=== PATIENT | male | born 1945 | race American Indian/Alaskan Native ===

== ENCOUNTER 2017-11-11 13:37 | Inpatient (IN) | payer MEDICARE ==
[2017-11-11] MEDS ORDERED: Sodium Chloride 0.9% 1,000 ML IV ONE (13:58)
[2017-11-11] MEDS ORDERED: Calcium Gluconate 4.65 MEQ in Dextrose 5% In Water 100 ML IV STA (14:00)
[2017-11-11] MEDS ORDERED: Albuterol-Ipratrop 3 mg / 0.5 (3 ml) UD INH STA (14:00)
[2017-11-11] MEDS ORDERED: Piperacillin/Tazobact 3.375 gm 100 ML IV STA (14:05)
--- NOTE | 2017-11-11 14:20 | C.PDOC ---
History Of Present Illness 72 y/o male hx respiratory failure November 2016 presents to the ED brought by ambulance found unconscious on the floor for two days. There was no family presents. The patient denies known new injuries. Time Seen by Provider: 11/11/17 13:50 Chief Complaint (Nursing): Altered Mental Status History Per: EMS History/Exam Limitations: Other (unable to report due to medical condition ) Onset/Duration Of Symptoms: Days Current Symptoms Are (Timing): Still Present Additional History Per: EMS Past Medical History Reviewed: Historical Data, Nursing Documentation, Vital Signs Vital Signs: Last Vital Signs Temp 94.1 F L 11/11/17 23:21 Pulse 72 11/11/17 23:21 Resp 12 11/11/17 23:21 BP 100/51 L 11/11/17 23:21 Pulse Ox 100 11/11/17 23:21 - Medical History PMH: Asthma, CHF, COPD, HTN - [facility] Procedures ASSISTANCE WITH RESPIRATORY VENTILATION, <24 HRS, CPAP (11/24/16) INSERT INFUSION DEV IN R INT JUGULAR VEIN, PERC (11/24/16) INSERTION OF ENDOTRACHEAL AIRWAY INTO TRACHEA, VIA OPENING (11/24/16) RESPIRATORY VENTILATION, LESS THAN 24 CONSECUTIVE HOURS (11/24/16) Family History: States: No Known Family Hx - Social History Hx Alcohol Use: No Hx Substance Use: No - Immunization History Hx Tetanus Toxoid Vaccination: No Hx Influenza Vaccination: Yes (2015) Hx Pneumococcal Vaccination: No (NOT SURE) Review Of Systems Except As Marked, All Systems Reviewed And Found Negative. Respiratory: Negative for: Cough, Shortness of Breath Gastrointestinal: Negative for: Nausea, Vomiting Musculoskeletal: Positive for: Other (found unconscious ) Neurological: Negative for: Change in Speech, Confusion, Dizziness Physical Exam - Physical Exam Appears: Non-toxic, Other (thin black male and obtundent) Skin: Warm, Dry Head: Atraumatic, Normacephalic Eye(s): bilateral: Normal Inspection Oral Mucosa: Moist Neck: Supple Chest: Symmetrical Cardiovascular: Rhythm Regular Respiratory: Normal Breath Sounds, No Rales, No Rhonchi, No Wheezing Gastrointestinal/Abdominal: Soft, No Tenderness, No Guarding, No Rebound Back: Normal Inspection Extremity: Capillary Refill (2<sec. ), Other (questionable right hip deformity ) ED Course And Treatment - Laboratory Results Result Diagrams: 11/11/17 19:17 11/11/17 19:17 ECG: Interpreted By Me ECG Rhythm: Sinus Rhythm ECG Interpretation: Normal Rate From EC O2 Sat by Pulse Oximetry: 100 (RA) Pulse Ox Interpretation: Normal - Radiology CXR: Interpreted by Me CXR Interpretation: Yes: No Acute Disease - Other Rad post-intubation CXR X-Ray: Interpreted by Me (good ET tube, no pnx) Progress Note: TLC triple lumen catheter in the right groin first attempt , intubation with 6.5 ET tube using glide scope confirmed with x- ray. Spoke with Dr. Jose at 2:15pm, Dr. Rhonda Denton at 3:30pm, and Dr. Ricks and 4:30pm . Patient is hypothermic, hypocarbic, and intubated. Hip films are negative for fracture. Critical Care Time - Critical Care Note Total Time (in mins): 90 Documented critical care: time excludes all time spent performing seperately billable procedures. Medical Decision Making Medical Decision Making: hypothermia, probabably from laying on the floor @ home for ? 2 days Rewarming with BEAR hugger and warm fluids/air REsp hypercarbic failure h/o same intubated and PEEP and increased rate to decrease CO2 Change of mental status R hip deformity hip/Pelvis films pending when pt stable. IMPRESSION: Baseline study. No evidence of acute intracranial hemorrhage intracranial collection mass effect or midline shift. Complete opacification of the right frontal sinus. Left Disposition Doctor Will See Patient In The: Hospital Counseled Patient/Family Regarding: Studies Performed, Diagnosis - Disposition Disposition: HOSPITALIZED Disposition Time: 16:05 Condition: CRITICAL - Clinical Impression Clinical Impression: Acute hypercapnic respiratory failure, Hypothermia - Scribe Statement Daniela Zhou
[2017-11-11 14:22] LABS: BASO % 0.3 % (0.0-2.0); EOS % 0.1 % (0.0-4.0); LYMPH # 0.3 K/uL (1.0-4.3); LYMPH % 8.3 % (20.0-40.0); MEAN CELL VOLUME 93.2 fL (80.0-94.0); MEAN CORPUSCULAR HEMOGLOBIN 28.2 pg (27.0-31.0); MEAN CORPUSCULAR HGB CONC 30.2 g/dL (33.0-37.0); MEAN PLATELET VOLUME 8.1 fL (7.2-11.7); MONO # 0.2 K/uL (0.0-0.8); MONO % 4.4 % (0.0-10.0); NEUT # 3.1 K/uL (1.8-7.0); NEUT % 86.9 % (50.0-75.0); NRBC % 0.3 % (0.0-2.0); RBC 4.96 Mil/uL (4.40-5.90); RED CELL DISTRIBUTION WIDTH 17.5 % (11.5-14.5)
[2017-11-11 14:26] LABS: INR 1.8; PROTHROMBIN TIME 20.4 SECONDS (9.7-12.2)
[2017-11-11 14:32] LABS: ARTERIAL BLOOD GAS O2 SAT 100.4 % (95-98); ARTERIAL BLOOD GAS PCO2 > 150 mm/Hg (35-45); ARTERIAL BLOOD GAS PH 7.07 (7.35-7.45); ARTERIAL BLOOD GAS PO2 401 mm/Hg (80-100)
[2017-11-11] MEDS ORDERED: Propofol 10 mg/ml 1,000 MG/100 ML VIAL ONE (14:36)
[2017-11-11 14:43] LABS: PLATELET COUNT 136 K/uL (130-400); WHITE BLOOD COUNT 3.6 K/uL (4.8-10.8)
[2017-11-11] MEDS ORDERED: Vancomycin 1 gm/NS 200 ml 1 GM/200 ML BAG IVPB ONE (15:00)
[2017-11-11 15:07] LABS: BANDS 3 % (0-2); EOSINOPHIL 1 % (0-4); LYMPHOCYTE 6 % (20-40); MONOCYTE 5 % (0-10); NEUTROPHIL 85 % (50-75); TOTAL CELLS COUNTED 100
[2017-11-11 15:08] LABS: ANISOCYTOSIS SLIGHT; PLATELET ESTIMATE NORMAL (NORMAL)
[2017-11-11 15:09] LABS: LARGE PLATELETS PRESENT
[2017-11-11 15:10] LABS: POLYCHROMIC SLIGHT
[2017-11-11 15:11] LABS: TARGET CELLS SLIGHT
[2017-11-11] MEDS ORDERED: DOPamine 400mg/250ml D5W 400 MG/250 ML BAG IV ONE (15:34)
[2017-11-11] MEDS: DOPamine 400mg/250ml D5W 400 MG/250 ML BAG IV PRN (15:40)
[2017-11-11] MEDS ORDERED: DOPamine 400mg/250ml D5W 250 ML IV PRN (15:42)
--- NOTE | 2017-11-11 15:45 | CP.PCM.HP ---
Past Patient History - Past Medical History & Family History Past Medical History?: Yes - Past Social History Smoking Status: Unknown If Ever Smoked - CARDIAC Hx Congestive Heart Failure: Yes Hx Hypertension: Yes - PULMONARY Hx Asthma: Yes Hx Chronic Obstructive Pulmonary Disease (COPD): Yes - NEUROLOGICAL Hx Neurological Disorder: Yes Hx Dizziness: Yes - ENDOCRINE/METABOLIC Hx Diabetes Mellitus Type 2: Yes - MUSCULOSKELETAL/RHEUMATOLOGICAL Hx Falls: Yes - PSYCHIATRIC Hx Substance Use: No - SURGICAL HISTORY Hx Surgeries: No - ANESTHESIA Hx Anesthesia: No Meds Allergies/Adverse Reactions: Allergies Allergy/AdvReac Type Severity Reaction Status Date / Time No Known Allergies Allergy Verified 11/11/17 13:45 Results - Vital Signs Recent Vital Signs: Last Vital Signs Temp 84.0 F L 11/11/17 13:39 Pulse 41 L 11/11/17 15:37 Resp 16 11/11/17 15:37 BP 76/47 L 11/11/17 15:37 Pulse Ox 100 11/11/17 15:42 - Labs Result Diagrams: 11/11/17 14:13 Labs: Laboratory Results - last 24 hr 11/11/17 11/11/17 11/11/17 14:13 14:13 14:18 WBC 3.6 L D RBC 4.96 Hgb 14.0 D Hct 46.3 MCV 93.2 D MCH 28.2 MCHC 30.2 L RDW 17.5 H Plt Count 136 D MPV 8.1 Neut % (Auto) 86.9 H Lymph % (Auto) 8.3 L [place] % (Auto) 4.4 Eos % (Auto) 0.1 Baso % (Auto) 0.3 Neut # 3.1 Lymph # 0.3 L [place] # 0.2 Eos # 0.0 Baso # 0.0 Neutrophils % (Manual) 85 H Band Neutrophils % 3 H Lymphocytes % (Manual) 6 L Monocytes % (Manual) 5 Eosinophils % (Manual) 1 Platelet Estimate Normal Large Platelets Present Polychromasia Slight Anisocytosis (manual) Slight Macrocytosis (manual) Slight Target Cells Slight PT 20.4 H INR 1.8 APTT 54 H Puncture Site pCO2 pO2 ABG pH ABG O2 Saturation Suraj Test ABG Potassium A-a O2 Difference Respiratory Index Sodium Chloride Glucose Lactate FiO2 Crit Value Called To Crit Value Called By Crit Value Read Back Blood Gas Notified Time Arterial Blood Potassium Influenza Typ A,B (EIA) Negative for flu a/b 11/11/17 14:25 WBC RBC Hgb Hct MCV MCH MCHC RDW Plt Count MPV Neut % (Auto) Lymph % (Auto) [place] % (Auto) Eos % (Auto) Baso % (Auto) Neut # Lymph # [place] # Eos # Baso # Neutrophils % (Manual) Band Neutrophils % Lymphocytes % (Manual) Monocytes % (Manual) Eosinophils % (Manual) Platelet Estimate Large Platelets Polychromasia Anisocytosis (manual) Macrocytosis (manual) Target Cells PT INR APTT Puncture Site Rra pCO2 > 150 H* pO2 401 H ABG pH 7.07 L* ABG O2 Saturation 100.4 H Suraj Test Na ABG Potassium 3.6 A-a O2 Difference 107.0 Respiratory Index 0.3 Sodium 142.0 Chloride 98.0 Glucose 101 Lactate 1.0 FiO2 100.0 Crit Value Called To Dr. schaefer Crit Value Called By Cecilia rt Crit Value Read Back Y Blood Gas Notified Time 1432 Arterial Blood Potassium 3.6 Influenza Typ A,B (EIA)
[2017-11-11 16:06] LABS: ALB/GLOB RATIO 0.6 (1.0-2.1); ALBUMIN 1.9 g/dL (3.5-5.0); ALT/SGPT 44 U/L (21-72); AST/SGOT 62 U/L (17-59); BLOOD UREA NITROGEN 23 mg/dL (9-20); CALCIUM 6.9 mg/dl (8.6-10.4); GFR AFRICAN-AMERICAN > 60; GFR NON-AFRICAN AMERICAN > 60
[2017-11-11] MEDS ORDERED: Propofol 10 mg/ml 1,000 MG/100 ML VIAL IV STA (16:08)
[2017-11-11 16:19] LABS: B-TYPE NATRIURETIC PEPTIDE 978 pg/mL (0-900)
--- NOTE | 2017-11-11 16:19 | CT ---
PROCEDURE: CT HEAD WITHOUT CONTRAST. HISTORY: found on ground x 2 days COMPARISON: None available. TECHNIQUE: Axial computed tomography images were obtained through the head/brain without intravenous contrast. Radiation dose: Total exam DLP = 1071.09 mGy-cm. This CT exam was performed using one or more of the following dose reduction techniques: Automated exposure control, adjustment of the mA and/or kV according to patient size, and/or use of iterative reconstruction technique. FINDINGS: HEMORRHAGE: No intracranial hemorrhage. BRAIN: No mass effect or edema. Eghe-je-kemrsqfj atrophy. Mild white matter changes likely represent chronic microvascular ischemic disease. VENTRICLES: Unremarkable. No hydrocephalus. CALVARIUM: Unremarkable. PARANASAL SINUSES: Complete opacification of the right maxillary sinus is noted. Mild ethmoidal mucosal thickening is also noted. MASTOID AIR CELLS: Unremarkable as visualized. No inflammatory changes. OTHER FINDINGS: None. IMPRESSION: Baseline study. No evidence of acute intracranial hemorrhage intracranial collection mass effect or midline shift. Complete opacification of the right frontal sinus. Left
[2017-11-11] MEDS: Propofol 10 mg/ml 1,000 MG/100 ML VIAL IV PRN ×2 (16:28→19:41)
[2017-11-11 16:48] LABS: URINE BILIRUBIN NEGATIVE (NEGATIVE); URINE BLOOD 1+ (NEGATIVE); URINE CLARITY Clear (Clear); URINE COLOR Yellow (YELLOW); URINE GLUCOSE (UA) NORMAL (Normal); URINE LEUKOCYTE ESTERASE NEG Leu/uL (Negative); URINE NITRATE NEGATIVE (NEGATIVE); URINE PROTEIN 1+ mg/dL (NEGATIVE)
[2017-11-11] MEDS: Piperacill/Tazo 3.375gm in Dex 3.375 GM/50 ML BAG IVPB ONE ×2 (17:00→18:49)
--- NOTE | 2017-11-11 17:02 | RAD ---
PROCEDURE: CHEST RADIOGRAPH, 1 VIEW HISTORY: SOB COMPARISON: Comparison is made to 11/28/2016 FINDINGS: LUNGS: No evidence of focal infiltrate or consolidation in the lungs. PLEURA: No pneumothorax or pleural fluid seen. CARDIOVASCULAR: Normal. OSSEOUS STRUCTURES: No significant abnormalities. VISUALIZED UPPER ABDOMEN: Normal. OTHER FINDINGS: None. IMPRESSION: No active disease.
--- NOTE | 2017-11-11 17:04 | RAD ---
HISTORY: post-intub COMPARISON: Comparison is made with the previous same-day exam FINDINGS: LUNGS: Status post intubation. The ET tube is seen at the level of the clavicles. No evidence of significant interval change in the lungs. PLEURA: No significant pleural effusion identified, no pneumothorax apparent. CARDIOVASCULAR: Normal. OSSEOUS STRUCTURES: No significant abnormalities. VISUALIZED UPPER ABDOMEN: Normal. OTHER FINDINGS: None. IMPRESSION: No significant interval change in the lungs. Status post intubation.
--- NOTE | 2017-11-11 17:06 | RAD ---
PROCEDURE: Radiographs of the pelvis. HISTORY: ? R hip fx/fall, portable COMPARISON: None. FINDINGS: BONES: Pelvic Bones: Unremarkable. Hips: Grossly unremarkable. JOINTS: Sacroiliac Joints: Unremarkable. Pubic Symphysis: Unremarkable. OTHER FINDINGS: None. IMPRESSION: Unremarkable radiographs of the pelvis.
[2017-11-11 17:18] LABS: ABG ALLEN TEST NEG; ARTERIAL BLOOD GAS HCO3 37.9 mmol/L (21-28); ARTERIAL BLOOD GAS O2 SAT 99.9 % (95-98); ARTERIAL BLOOD GAS PCO2 43 mm/Hg (35-45); ARTERIAL BLOOD GAS PH 7.58 (7.35-7.45); ARTERIAL BLOOD GAS PO2 590 mm/Hg (80-100); ARTERIAL BLOOD GAS TCO2 41.6 mmol/L (22-28)
--- NOTE | 2017-11-11 17:56 | CP.PCM.CON ---
History of Present Illness - History of Present Illness History of Present Illness: Chief complaint: Altered mental status History of present illness: 72-year-old male with a history of COPD hypertension recently was hospitalized, but did ambulance, after found unconscious on the floor for 2 days. There was no injury is noted. The patient in the emergency room was found to be very unconscious, because of the respiratory protection patient was intubated. Initial blood gas analyses showing severe acidosis. The Co2 in the blood gas showing very high levels. In the past patient was also hospitalized with the COPD exacerbation. Further history currently not available. Patient in the emergency was intubated, placed on ventilator. Initial CT scan of the head showing no evidence of any acute bleed. Because of the deformity in the legs x-ray of the pelvis was done, showing no evidence of fractures Currently patient is also severely hypothermic, temperature is 84*F Past medical history: Hypertension, high cholesterol, COPD Further history not available Review of systems not available On examination: Currently patient is on ventilator. Hypotensive, hypothermic, bradycardic. The blood gas analysis showing improvement in the oxygenation. Chest good air entry bilaterally regular heart sound. Abdomen nontender. Significant anasarca and edema noted in the lower extremities and the gluteal area. Labs reviewed Elevated WBC. Chest x-ray no infiltrate, right lower lung haziness noted. Assessment and compression: 72 male with a history of possible COPD and hypertension now admitted with a severe CO2 narcosis, complicated with altered mental status, intubated. On ventilator. Prognosis is poor. Unclear etiology. Severe hypothermia, likely accidental. We'll continue to want the patient temperature monitoring. Antibiotic. IV fluid. Ventilator management and will follow the patient. Condition is critical Past Patient History - Past Medical History & Family History Past Medical History?: Yes - Past Social History Smoking Status: Former Smoker - CARDIAC Hx Congestive Heart Failure: Yes Hx Hypertension: Yes - PULMONARY Hx Asthma: Yes Hx Chronic Obstructive Pulmonary Disease (COPD): Yes - NEUROLOGICAL Hx Neurological Disorder: Yes Hx Dizziness: Yes - ENDOCRINE/METABOLIC Hx Diabetes Mellitus Type 2: Yes - MUSCULOSKELETAL/RHEUMATOLOGICAL Hx Falls: Yes - PSYCHIATRIC Hx Substance Use: No - SURGICAL HISTORY Hx Surgeries: No - ANESTHESIA Hx Anesthesia: No Meds Allergies/Adverse Reactions: Allergies Allergy/AdvReac Type Severity Reaction Status Date / Time No Known Allergies Allergy Verified 11/11/17 13:45 - Medications Medications: Current Medications Albuterol/Ipratropium (Duoneb 3 Mg/0.5 Mg (3 Ml) Ud) 3 ml INH RQ6 JUANA Heparin Sodium (Porcine) (Heparin) 5,000 units SC Q8 JUANA Dopamine HCl/Dextrose (Dopamine 400mg/250ml D5w) 400 mg in 250 mls @ 25.344 mls /hr IV .Q9H52M PRN; Protocol; 10 MCG/KG/MIN PRN Reason: TITRATE PER MD ORDER Last Admin: 11/11/17 15:40 Dose: 10 mcg/kg/min, 25.344 mls/hr Propofol (Diprivan) 1,000 mg in 100 mls @ 2.028 mls/hr IV .Q24H PRN; 5 MCG/KG/ MIN PRN Reason: Protocol Last Admin: 11/11/17 16:28 Dose: 10 mcg/kg/min, 4.055 mls/hr Azithromycin 500 mg/ Sodium (Chloride) 250 mls @ 250 mls/hr IVPB DAILY [facility] Ceftriaxone Sodium 1 gm/ (Sodium Chloride) 100 mls @ 100 mls/hr IVPB Q12H JUANA Methylprednisolone (Solu-Medrol) 40 mg IVP Q12 JUANA Pantoprazole Sodium (Protonix Inj) 40 mg IVP DAILY JUANA Results - Vital Signs Recent Vital Signs: Last Vital Signs Temp 84.0 F L 11/11/17 13:39 Pulse 69 11/11/17 16:00 Resp 19 11/11/17 16:00 BP 120/70 11/11/17 16:00 Pulse Ox 100 11/11/17 17:03 - Labs Result Diagrams: 11/11/17 14:13 11/11/17 15:24 Labs: Laboratory Results - last 24 hr 11/11/17 11/11/17 11/11/17 14:13 14:13 14:18 WBC 3.6 L D RBC 4.96 Hgb 14.0 D Hct 46.3 MCV 93.2 D MCH 28.2 MCHC 30.2 L RDW 17.5 H Plt Count 136 D MPV 8.1 Neut % (Auto) 86.9 H Lymph % (Auto) 8.3 L [place] % (Auto) 4.4 Eos % (Auto) 0.1 Baso % (Auto) 0.3 Neut # 3.1 Lymph # 0.3 L [place] # 0.2 Eos # 0.0 Baso # 0.0 Neutrophils % (Manual) 85 H Band Neutrophils % 3 H Lymphocytes % (Manual) 6 L Monocytes % (Manual) 5 Eosinophils % (Manual) 1 Platelet Estimate Normal Large Platelets Present Polychromasia Slight Anisocytosis (manual) Slight Macrocytosis (manual) Slight Target Cells Slight PT 20.4 H INR 1.8 APTT 54 H Puncture Site pCO2 pO2 HCO3 ABG pH ABG Total CO2 ABG O2 Saturation ABG Base Excess Suraj Test ABG Potassium A-a O2 Difference Respiratory Index Sodium Chloride Glucose Lactate Vent Mode Mechanical Rate FiO2 Tidal Volume PEEP Crit Value Called To Crit Value Called By Crit Value Read Back Blood Gas Notified Time Potassium Carbon Dioxide Anion Gap BUN Creatinine Est GFR ( Amer) Est GFR (Non-Af Amer) Random Glucose Calcium Total Bilirubin AST ALT Alkaline Phosphatase Total Creatine Kinase Troponin I NT-Pro-B Natriuret Pep Total Protein Albumin Globulin Albumin/Globulin Ratio Arterial Blood Potassium Urine Color Urine Clarity Urine pH Ur Specific [place] Urine Protein Urine Glucose (UA) Urine Ketones Urine Blood Urine Nitrate Urine Bilirubin Urine Urobilinogen Ur Leukocyte Esterase Urine WBC (Auto) Urine RBC (Auto) Hyaline Casts Influenza Typ A,B (EIA) Negative for flu a/b 11/11/17 11/11/17 11/11/17 14:25 15:24 16:39 WBC RBC Hgb Hct MCV MCH MCHC RDW Plt Count MPV Neut % (Auto) Lymph % (Auto) [place] % (Auto) Eos % (Auto) Baso % (Auto) Neut # Lymph # [place] # Eos # Baso # Neutrophils % (Manual) Band Neutrophils % Lymphocytes % (Manual) Monocytes % (Manual) Eosinophils % (Manual) Platelet Estimate Large Platelets Polychromasia Anisocytosis (manual) Macrocytosis (manual) Target Cells PT INR APTT Puncture Site Rra pCO2 > 150 H* pO2 401 H HCO3 ABG pH 7.07 L* ABG Total CO2 ABG O2 Saturation 100.4 H ABG Base Excess Suraj Test Na ABG Potassium 3.6 A-a O2 Difference 107.0 Respiratory Index 0.3 Sodium 142.0 136 Chloride 98.0 92 L Glucose 101 Lactate 1.0 Vent Mode Mechanical Rate FiO2 100.0 Tidal Volume PEEP Crit Value Called To Dr. schaefer Crit Value Called By Cecilia rt Crit Value Read Back Y Blood Gas Notified Time 1432 Potassium 3.5 L Carbon Dioxide 39 H Anion Gap 9 L BUN 23 H Creatinine 0.4 L Est GFR ( Amer) > 60 Est GFR (Non-Af Amer) > 60 Random Glucose 93 Calcium 6.9 L Total Bilirubin 0.9 AST 62 H ALT 44 Alkaline Phosphatase 43 Total Creatine Kinase 495 H Troponin I < 0.0120 NT-Pro-B Natriuret Pep 978 H Total Protein 4.8 L Albumin 1.9 L D Globulin 2.9 Albumin/Globulin Ratio 0.6 L Arterial Blood Potassium 3.6 Urine Color Yellow Urine Clarity Clear Urine pH 5.0 Ur Specific [place] 1.019 Urine Protein 1+ H Urine Glucose (UA) Normal Urine Ketones 1+ H Urine Blood 1+ H Urine Nitrate Negative Urine Bilirubin Negative Urine Urobilinogen 2.0 Ur Leukocyte Esterase Neg Urine WBC (Auto) 1 Urine RBC (Auto) 7 H Hyaline Casts 6-10 H Influenza Typ A,B (EIA) 11/11/17 17:10 WBC RBC Hgb Hct MCV MCH MCHC RDW Plt Count MPV Neut % (Auto) Lymph % (Auto) [place] % (Auto) Eos % (Auto) Baso % (Auto) Neut # Lymph # [place] # Eos # Baso # Neutrophils % (Manual) Band Neutrophils % Lymphocytes % (Manual) Monocytes % (Manual) Eosinophils % (Manual) Platelet Estimate Large Platelets Polychromasia Anisocytosis (manual) Macrocytosis (manual) Target Cells PT INR APTT Puncture Site Rbrachial pCO2 43 pO2 590 H HCO3 37.9 H ABG pH 7.58 H ABG Total CO2 41.6 H ABG O2 Saturation 99.9 H ABG Base Excess 16.5 H Suraj Test Neg ABG Potassium 3.6 A-a O2 Difference 69.0 Respiratory Index 0.1 Sodium 140.0 Chloride 102.0 Glucose 107 Lactate 1.3 Vent Mode Prvc Mechanical Rate 18 FiO2 100.0 Tidal Volume 500 PEEP 5 Crit Value Called To Crit Value Called By Crit Value Read Back Blood Gas Notified Time Potassium Carbon Dioxide Anion Gap BUN Creatinine Est GFR ( Amer) Est GFR (Non-Af Amer) Random Glucose Calcium Total Bilirubin AST ALT Alkaline Phosphatase Total Creatine Kinase Troponin I NT-Pro-B Natriuret Pep Total Protein Albumin Globulin Albumin/Globulin Ratio Arterial Blood Potassium 3.6 Urine Color Urine Clarity Urine pH Ur Specific [place] Urine Protein Urine Glucose (UA) Urine Ketones Urine Blood Urine Nitrate Urine Bilirubin Urine Urobilinogen Ur Leukocyte Esterase Urine WBC (Auto) Urine RBC (Auto) Hyaline Casts Influenza Typ A,B (EIA)
[2017-11-11 19:20] LABS: BASO % 1.1 % (0.0-2.0); HEMOGLOBIN 14.3 g/dL (12.0-18.0); LYMPH # 0.2 K/uL (1.0-4.3); LYMPH % 5.7 % (20.0-40.0); MEAN CELL VOLUME 90.5 fL (80.0-94.0); MEAN CORPUSCULAR HEMOGLOBIN 27.9 pg (27.0-31.0); MEAN CORPUSCULAR HGB CONC 30.8 g/dL (33.0-37.0); MEAN PLATELET VOLUME 7.8 fL (7.2-11.7); NEUT # 3.4 K/uL (1.8-7.0); NEUT % 92.2 % (50.0-75.0); NRBC % 0.2 % (0.0-2.0); PLATELET COUNT 137 K/uL (130-400); RBC 5.12 Mil/uL (4.40-5.90); RED CELL DISTRIBUTION WIDTH 17.3 % (11.5-14.5); WHITE BLOOD COUNT 3.7 K/uL (4.8-10.8)
[2017-11-11 19:36] LABS: ALB/GLOB RATIO 0.7 (1.0-2.1); ALBUMIN 2.9 g/dL (3.5-5.0); ALT/SGPT 48 U/L (21-72); AST/SGOT 95 U/L (17-59); BLOOD UREA NITROGEN 24 mg/dL (9-20); CALCIUM 7.9 mg/dl (8.6-10.4); GFR AFRICAN-AMERICAN > 60; GFR NON-AFRICAN AMERICAN > 60; MAGNESIUM 1.7 mg/dL (1.6-2.3)
[2017-11-11] MEDS: Sodium Chloride 0.9% 1,000 ML IV SCH (19:45)
[2017-11-11 19:56] LABS: BANDS 1 % (0-2); LYMPHOCYTE 7 % (20-40); MONOCYTE 2 % (0-10); NEUTROPHIL 90 % (50-75); PLATELET ESTIMATE NORMAL (NORMAL); TOTAL CELLS COUNTED 100
[2017-11-11 19:57] LABS: ANISOCYTOSIS SLIGHT; HYPOCHROMIC SLIGHT; TARGET CELLS SLIGHT
[2017-11-11 19:58] LABS: BURR CELLS SLIGHT
[2017-11-11] MEDS: Albuterol-Ipratrop 3 mg / 0.5 (3 ml) UD INH SCH (20:12)
[2017-11-11] MEDS: MethylPREDNISolone 40 mg Vial IVP SCH (21:42)
[2017-11-12 02:35] LABS: ALB/GLOB RATIO 0.8 (1.0-2.1); ALBUMIN 2.5 g/dL (3.5-5.0); ALT/SGPT 38 U/L (21-72); AST/SGOT 76 U/L (17-59); BLOOD UREA NITROGEN 25 mg/dL (9-20); CALCIUM 7.5 mg/dl (8.6-10.4); GFR AFRICAN-AMERICAN > 60; GFR NON-AFRICAN AMERICAN > 60; MAGNESIUM 1.7 mg/dL (1.6-2.3)
[2017-11-12] MEDS ORDERED: Sodium Phosphate 15 MMOLE in Sodium Chloride 0.9% 250 ML IVPB ONE (04:26)
[2017-11-12] MEDS: Sodium Chloride 0.9% 1,000 ML IV SCH ×2 (05:25→19:04)
[2017-11-12] MEDS: Propofol 10 mg/ml 1,000 MG/100 ML VIAL IV PRN ×2 (06:07→21:10)
[2017-11-12 06:39] LABS: ABG ALLEN TEST POS; ARTERIAL BLOOD GAS HCO3 37.9 mmol/L (21-28); ARTERIAL BLOOD GAS HEMOGLOBIN 13.1 g/dL (11.7-17.4); ARTERIAL BLOOD GAS O2 SAT 99.6 % (95-98); ARTERIAL BLOOD GAS PCO2 33 mm/Hg (35-45); ARTERIAL BLOOD GAS PH 7.67 (7.35-7.45); ARTERIAL BLOOD GAS PO2 292 mm/Hg (80-100); ARTERIAL BLOOD GAS TCO2 39.1 mmol/L (22-28)
[2017-11-12] MEDS: Albuterol-Ipratrop 3 mg / 0.5 (3 ml) UD INH SCH ×3 (08:41→20:10)
--- NOTE | 2017-11-12 08:57 | RAD ---
HISTORY: follow up COMPARISON: Comparison is made with the previous exam. FINDINGS: LUNGS: No significant interval change in the lungs noted since the previous study. ET tube seen at appropriate position. PLEURA: No significant pleural effusion identified, no pneumothorax apparent. CARDIOVASCULAR: Normal. OSSEOUS STRUCTURES: No significant abnormalities. VISUALIZED UPPER ABDOMEN: Normal. OTHER FINDINGS: The NG tube seen extending to the stomach. IMPRESSION: No significant interval change noted.
[2017-11-12] MEDS: MethylPREDNISolone 40 mg Vial IVP SCH ×2 (09:43→21:18)
[2017-11-12] MEDS ORDERED: Azithromycin 500 MG in Sodium Chloride 0.9% 250 ML IVPB SCH (10:00)
[2017-11-12 13:38] LABS: BASO % 0.2 % (0.0-2.0); HEMOGLOBIN 12.4 g/dL (12.0-18.0); LYMPH # 0.2 K/uL (1.0-4.3); LYMPH % 4.3 % (20.0-40.0); MEAN CELL VOLUME 89.7 fL (80.0-94.0); MEAN CORPUSCULAR HEMOGLOBIN 28.6 pg (27.0-31.0); MEAN CORPUSCULAR HGB CONC 31.9 g/dL (33.0-37.0); MEAN PLATELET VOLUME 8.3 fL (7.2-11.7); MONO # 0.4 K/uL (0.0-0.8); MONO % 8.9 % (0.0-10.0); NEUT # 4.3 K/uL (1.8-7.0); NEUT % 86.6 % (50.0-75.0); NRBC % 0.5 % (0.0-2.0); PLATELET COUNT 136 K/uL (130-400); RBC 4.35 Mil/uL (4.40-5.90); RED CELL DISTRIBUTION WIDTH 17.2 % (11.5-14.5); WHITE BLOOD COUNT 4.9 K/uL (4.8-10.8)
[2017-11-12 14:30] LABS: BANDS 9 % (0-2); LYMPHOCYTE 4 % (20-40); MONOCYTE 8 % (0-10); NEUTROPHIL 79 % (50-75); PLATELET ESTIMATE NORMAL (NORMAL); TOTAL CELLS COUNTED 100
[2017-11-12 14:31] LABS: ANISOCYTOSIS SLIGHT; HYPOCHROMIC MODERATE; POLYCHROMIC SLIGHT; TARGET CELLS MODERATE
[2017-11-12 14:38] LABS: ALB/GLOB RATIO 0.8 (1.0-2.1); ALBUMIN 2.3 g/dL (3.5-5.0); ALT/SGPT 38 U/L (21-72); AST/SGOT 75 U/L (17-59); BLOOD UREA NITROGEN 28 mg/dL (9-20); CALCIUM 7.2 mg/dl (8.6-10.4); GFR AFRICAN-AMERICAN > 60; GFR NON-AFRICAN AMERICAN > 60; MAGNESIUM 1.7 mg/dL (1.6-2.3)
--- NOTE | 2017-11-12 18:49 | CP.PCM.PN ---
Subjective - Date & Time of Evaluation Date of Evaluation: 11/12/17 Time of Evaluation: 14:15 Objective - Vital Signs/Intake and Output Vital Signs (last 24 hours): Temp Pulse Resp BP Pulse Ox 93.6 F L 96 H 15 133/70 99 11/12/17 17:22 11/12/17 17:22 11/12/17 17:22 11/12/17 17:22 11/12/17 17:22 Intake and Output: 11/12/17 11/12/17 06:59 18:59 Intake Total 1144.5 894.6 Output Total 825 540 Balance 319.5 354.6 - Medications Medications: Current Medications Albuterol/Ipratropium (Duoneb 3 Mg/0.5 Mg (3 Ml) Ud) 3 ml INH RQ6 JUANA Last Admin: 11/12/17 13:36 Dose: 3 ml Heparin Sodium (Porcine) (Heparin) 5,000 units SC Q8 JUANA Last Admin: 11/12/17 06:06 Dose: 5,000 units Dopamine HCl/Dextrose (Dopamine 400mg/250ml D5w) 400 mg in 250 mls @ 25.344 mls /hr IV .Q9H52M PRN; Protocol; 10 MCG/KG/MIN PRN Reason: TITRATE PER MD ORDER Last Admin: 11/11/17 15:40 Dose: 10 mcg/kg/min, 25.344 mls/hr Propofol (Diprivan) 1,000 mg in 100 mls @ 2.028 mls/hr IV .Q24H PRN; 5 MCG/KG/ MIN PRN Reason: Protocol Last Admin: 11/12/17 06:07 Dose: 30.33 mcg/kg/min, 12.3 mls/hr Sodium Chloride (Sodium Chloride 0.9%) 1,000 mls @ 100 mls/hr IV .Q10H JUANA Last Admin: 11/12/17 05:25 Dose: Not Given Methylprednisolone (Solu-Medrol) 40 mg IVP Q12 JUANA Last Admin: 11/12/17 09:43 Dose: 40 mg Pantoprazole Sodium (Protonix Inj) 40 mg IVP DAILY JUANA Last Admin: 11/12/17 09:42 Dose: 40 mg - Labs Labs: 11/12/17 13:30 11/12/17 13:30 PT 20.4 SECONDS (9.7-12.2) H 11/11/17 14:13 INR 1.8 11/11/17 14:13 APTT 54 SECONDS (21-34) H 11/11/17 14:13
--- NOTE | 2017-11-12 19:26 | CP.CCUPN ---
CCU Subjective - Physician Review Events Since Last Encounter (Free Text): 11/12/17 19:24 alert and responding to voice, not following commands yet. CCU Objective - Vital Signs / Intake & Output Vital Signs (Last 4 hours): Vital Signs Temp Pulse Resp BP Pulse Ox 11/12/17 18:37 93.7 F L 92 H 16 137/79 98 11/12/17 18:07 93.7 F L 93 H 13 138/101 H 98 11/12/17 18:00 93.7 F L 94 H 16 98 11/12/17 17:51 93.9 F L 90 13 130/67 98 11/12/17 17:22 93.6 F L 96 H 15 133/70 99 11/12/17 17:06 93.2 F L 87 12 122/72 97 11/12/17 17:00 93.2 F L 88 12 98 11/12/17 16:51 86 11 L 127/67 98 11/12/17 16:36 87 11 L 122/68 98 11/12/17 16:21 84 12 117/63 97 11/12/17 16:06 84 12 118/62 98 11/12/17 16:00 83 12 99 11/12/17 15:51 85 12 114/66 97 11/12/17 15:36 91 H 12 120/68 97 Intake and Output (Last 8hrs): Intake & Output 11/12/17 11/12/17 11/12/17 06:59 14:59 22:59 Intake Total 1044.5 729.2 198.1 Output Total 825 440 155 Balance 219.5 289.2 43.1 Weight 152 lb Intake: IV 100 Intake, IV Amount 944.5 669.2 138.1 Left Forearm 52.3 Right Distal Port Femoral 200 Right Forearm 100 Right Proximal Port 142.2 119.2 38.1 Femoral rt fem tlc 650 350 100 Oral 0 Tube Feeding 60 60 Output: Urine 825 440 155 Urethral ([place]) 825 440 155 Other: # Bowel Movements 0 0 - Physical Exam Head: Positive for: Atraumatic, Normocephalic Pupils: Positive for: PERRL Extroacular Muscles: Positive for: EOMI Conjunctiva: Positive for: Normal Mouth: Positive for: Moist Mucous Membranes Respiratory/Chest: Positive for: Clear to Auscultation, Good Air Exchange, Respiratory Distress Cardiovascular: Positive for: Regular Rate and Rhythm Abdomen: Negative for: Tenderness, Distention Psychiatric: Positive for: Alert. Negative for: Oriented x 3 - Medications Active Medications: Active Medications Generic Name Dose Route Start Last Admin Trade Name Freq PRN Reason Stop Dose Admin Albuterol/Ipratropium 3 ml 11/11/17 20:00 11/12/17 13:36 Duoneb 3 Mg/0.5 Mg (3 Ml) Ud INH 3 ml RQ6 JUANA Administration Heparin Sodium (Porcine) 5,000 units 11/11/17 22:00 11/12/17 14:02 Heparin SC 5,000 units Q8 JUANA Administration Dopamine HCl/Dextrose 400 mg in 250 mls @ 25.344 mls/hr 11/11/17 16:08 15:40 Dopamine 400mg/250ml D5w IV 10 mcg/kg/min .Q9H52M PRN 25.344 mls/hr TITRATE PER MD ORDER Administration Protocol 10 MCG/KG/MIN Propofol 1,000 mg in 100 mls @ 2.028 mls/hr 11/11/17 16:15 11/12/17 06:07 Diprivan IV 30.33 mcg/kg/min .Q24H PRN 12.3 mls/hr Protocol Administration 5 MCG/KG/MIN Sodium Chloride 1,000 mls @ 100 mls/hr 11/11/17 19:00 11/12/17 19:04 Sodium Chloride 0.9% IV Not Given .Q10H JUANA Methylprednisolone 40 mg 11/11/17 22:00 11/12/17 09:43 Solu-Medrol IVP 40 mg Q12 JUANA Administration Pantoprazole Sodium 40 mg 11/11/17 17:30 11/12/17 09:42 Protonix Inj IVP 40 mg DAILY JUANA Administration Tiotropium [place] 18 mcg 11/13/17 08:00 Spiriva INH RQ24 JUANA - Patient Studies Lab Studies: Microbiology Studies 11/11/17 13:54 Blood Culture - Preliminary Blood NO GROWTH AFTER 24 HOURS 11/11/17 14:25 Blood Culture - Preliminary Blood NO GROWTH AFTER 24 HOURS Lab Studies 11/12/17 11/12/17 11/12/17 Range/Units 13:30 13:30 05:30 WBC 4.9 (4.8-10.8) K/uL RBC 4.35 L (4.40-5.90) Mil/uL Hgb 12.4 (12.0-18.0) g/dL Hct 39.0 (35.0-51.0) % MCV 89.7 (80.0-94.0) fL MCH 28.6 (27.0-31.0) pg MCHC 31.9 L (33.0-37.0) g/dL RDW 17.2 H (11.5-14.5) % Plt Count 136 (130-400) K/uL MPV 8.3 (7.2-11.7) fL Neut % (Auto) 86.6 H (50.0-75.0) % Lymph % (Auto) 4.3 L (20.0-40.0) % [place] % (Auto) 8.9 (0.0-10.0) % Eos % (Auto) 0.0 (0.0-4.0) % Baso % (Auto) 0.2 (0.0-2.0) % Neut # 4.3 (1.8-7.0) K/uL Lymph # 0.2 L (1.0-4.3) K/uL [place] # 0.4 (0.0-0.8) K/uL Eos # 0.0 (0.0-0.7) K/uL Baso # 0.0 (0.0-0.2) K/uL Neutrophils % (Manual) 79 H (50-75) % Band Neutrophils % 9 H (0-2) % Lymphocytes % (Manual) 4 L (20-40) % Monocytes % (Manual) 8 (0-10) % Platelet Estimate Normal (NORMAL) Polychromasia Slight Hypochromasia (manual) Moderate Anisocytosis (manual) Slight Macrocytosis (manual) Moderate Target Cells Moderate [place] Cells Puncture Site Rradial pCO2 33 L (35-45) mm/Hg pO2 292 H (80-100) mm/Hg HCO3 37.9 H (21-28) mmol/L ABG pH 7.67 H* (7.35-7.45) ABG Total CO2 39.1 H (22-28) mmol/L ABG O2 Saturation 99.6 H (95-98) % ABG Base Excess 16.7 H (-2.0-3.0) mmol/L ABG Hemoglobin 13.1 (11.7-17.4) g/dL ABG Carboxyhemoglobin 1.5 (0.5-1.5) % POC ABG HHb (Measured) 0.4 (0.0-5.0) % ABG Methemoglobin 1.6 (0.0-3.0) % Suraj Test Pos A-a O2 Difference 23.0 mm/Hg Respiratory Index 0.1 Hgb O2 Saturation 96.5 (95.0-98.0) % Vent Mode Prvc Mechanical Rate 12 FiO2 50.0 % Tidal Volume 500 PEEP 5 Crit Value Called To Dr. costa Crit Value Called By Mary ji rcp Crit Value Read Back Y Blood Gas Notified Time 640 Sodium 135 (132-148) mmol/L Potassium 3.5 L (3.6-5.2) mmol/L Chloride 91 L (98-107) mmol/L Carbon Dioxide 35 H (22-30) mmol/L Anion Gap 13 (10-20) BUN 28 H (9-20) mg/dL Creatinine 0.6 L (0.8-1.5) mg/dL Est GFR ( Amer) > 60 Est GFR (Non-Af Amer) > 60 Random Glucose 84 (75-110) mg/dL Calcium 7.2 L (8.6-10.4) mg/dl Phosphorus 3.6 (2.5-4.5) mg/dL Magnesium 1.7 (1.6-2.3) mg/dL Total Bilirubin 1.1 (0.2-1.3) mg/dL AST 75 H (17-59) U/L ALT 38 (21-72) U/L Alkaline Phosphatase 54 (38-126) U/L Total Protein 5.3 L (6.3-8.3) g/dL Albumin 2.3 L (3.5-5.0) g/dL Globulin 3.0 (2.2-3.9) gm/dL Albumin/Globulin Ratio 0.8 L (1.0-2.1) 11/12/17 11/11/17 11/11/17 Range/Units 02:11 19:17 19:17 WBC (4.8-10.8) K/uL RBC (4.40-5.90) Mil/uL Hgb (12.0-18.0) g/dL Hct (35.0-51.0) % MCV (80.0-94.0) fL MCH (27.0-31.0) pg MCHC (33.0-37.0) g/dL RDW (11.5-14.5) % Plt Count (130-400) K/uL MPV (7.2-11.7) fL Neut % (Auto) (50.0-75.0) % Lymph % (Auto) (20.0-40.0) % [place] % (Auto) (0.0-10.0) % Eos % (Auto) (0.0-4.0) % Baso % (Auto) (0.0-2.0) % Neut # (1.8-7.0) K/uL Lymph # (1.0-4.3) K/uL [place] # (0.0-0.8) K/uL Eos # (0.0-0.7) K/uL Baso # (0.0-0.2) K/uL Neutrophils % (Manual) 90 H (50-75) % Band Neutrophils % 1 (0-2) % Lymphocytes % (Manual) 7 L (20-40) % Monocytes % (Manual) 2 (0-10) % Platelet Estimate Normal (NORMAL) Polychromasia Hypochromasia (manual) Slight Anisocytosis (manual) Slight Macrocytosis (manual) Target Cells Slight [place] Cells Slight Puncture Site pCO2 (35-45) mm/Hg pO2 (80-100) mm/Hg HCO3 (21-28) mmol/L ABG pH (7.35-7.45) ABG Total CO2 (22-28) mmol/L ABG O2 Saturation (95-98) % ABG Base Excess (-2.0-3.0) mmol/L ABG Hemoglobin (11.7-17.4) g/dL ABG Carboxyhemoglobin (0.5-1.5) % POC ABG HHb (Measured) (0.0-5.0) % ABG Methemoglobin (0.0-3.0) % Suraj Test A-a O2 Difference mm/Hg Respiratory Index Hgb O2 Saturation (95.0-98.0) % Vent Mode Mechanical Rate FiO2 % Tidal Volume PEEP Crit Value Called To Crit Value Called By Crit Value Read Back Blood Gas Notified Time Sodium 136 134 (132-148) mmol/L Potassium 3.5 L 3.7 (3.6-5.2) mmol/L Chloride 91 L 89 L (98-107) mmol/L Carbon Dioxide 36 H 38 H (22-30) mmol/L Anion Gap 13 11 (10-20) BUN 25 H 24 H (9-20) mg/dL Creatinine 0.4 L 0.4 L (0.8-1.5) mg/dL Est GFR ( Amer) > 60 > 60 Est GFR (Non-Af Amer) > 60 > 60 Random Glucose 102 115 H (75-110) mg/dL Calcium 7.5 L 7.9 L (8.6-10.4) mg/dl Phosphorus 2.2 L 2.9 (2.5-4.5) mg/dL Magnesium 1.7 1.7 (1.6-2.3) mg/dL Total Bilirubin 1.5 H 1.6 H (0.2-1.3) mg/dL AST 76 H 95 H D (17-59) U/L ALT 38 48 (21-72) U/L Alkaline Phosphatase 61 75 (38-126) U/L Total Protein 5.6 L 7.2 (6.3-8.3) g/dL Albumin 2.5 L 2.9 L D (3.5-5.0) g/dL Globulin 3.1 4.4 H (2.2-3.9) gm/dL Albumin/Globulin Ratio 0.8 L 0.7 L (1.0-2.1) Laboratory Results - last 24 hr 11/11/17 11/11/17 11/12/17 19:17 19:17 02:11 WBC RBC Hgb Hct MCV MCH MCHC RDW Plt Count MPV Neut % (Auto) Lymph % (Auto) [place] % (Auto) Eos % (Auto) Baso % (Auto) Neut # Lymph # [place] # Eos # Baso # Neutrophils % (Manual) 90 H Band Neutrophils % 1 Lymphocytes % (Manual) 7 L Monocytes % (Manual) 2 Platelet Estimate Normal Polychromasia Hypochromasia (manual) Slight Anisocytosis (manual) Slight Macrocytosis (manual) Target Cells Slight [place] Cells Slight Puncture Site pCO2 pO2 HCO3 ABG pH ABG Total CO2 ABG O2 Saturation ABG Base Excess ABG Hemoglobin ABG Carboxyhemoglobin POC ABG HHb (Measured) ABG Methemoglobin Suraj Test A-a O2 Difference Respiratory Index Hgb O2 Saturation Vent Mode Mechanical Rate FiO2 Tidal Volume PEEP Crit Value Called To Crit Value Called By Crit Value Read Back Blood Gas Notified Time Sodium 134 136 Potassium 3.7 3.5 L Chloride 89 L 91 L Carbon Dioxide 38 H 36 H Anion Gap 11 13 BUN 24 H 25 H Creatinine 0.4 L 0.4 L Est GFR ( Amer) > 60 > 60 Est GFR (Non-Af Amer) > 60 > 60 Random Glucose 115 H 102 Calcium 7.9 L 7.5 L Phosphorus 2.9 2.2 L Magnesium 1.7 1.7 Total Bilirubin 1.6 H 1.5 H AST 95 H D 76 H ALT 48 38 Alkaline Phosphatase 75 61 Total Protein 7.2 5.6 L Albumin 2.9 L D 2.5 L Globulin 4.4 H 3.1 Albumin/Globulin Ratio 0.7 L 0.8 L 11/12/17 11/12/17 11/12/17 05:30 13:30 13:30 WBC 4.9 RBC 4.35 L Hgb 12.4 Hct 39.0 MCV 89.7 MCH 28.6 MCHC 31.9 L RDW 17.2 H Plt Count 136 MPV 8.3 Neut % (Auto) 86.6 H Lymph % (Auto) 4.3 L [place] % (Auto) 8.9 Eos % (Auto) 0.0 Baso % (Auto) 0.2 Neut # 4.3 Lymph # 0.2 L [place] # 0.4 Eos # 0.0 Baso # 0.0 Neutrophils % (Manual) 79 H Band Neutrophils % 9 H Lymphocytes % (Manual) 4 L Monocytes % (Manual) 8 Platelet Estimate Normal Polychromasia Slight Hypochromasia (manual) Moderate Anisocytosis (manual) Slight Macrocytosis (manual) Moderate Target Cells Moderate [place] Cells Puncture Site Rradial pCO2 33 L pO2 292 H HCO3 37.9 H ABG pH 7.67 H* ABG Total CO2 39.1 H ABG O2 Saturation 99.6 H ABG Base Excess 16.7 H ABG Hemoglobin 13.1 ABG Carboxyhemoglobin 1.5 POC ABG HHb (Measured) 0.4 ABG Methemoglobin 1.6 Suraj Test Pos A-a O2 Difference 23.0 Respiratory Index 0.1 Hgb O2 Saturation 96.5 Vent Mode Prvc Mechanical Rate 12 FiO2 50.0 Tidal Volume 500 PEEP 5 Crit Value Called To Dr. costa Crit Value Called By Mary ji rcp Crit Value Read Back Y Blood Gas Notified Time 640 Sodium 135 Potassium 3.5 L Chloride 91 L Carbon Dioxide 35 H Anion Gap 13 BUN 28 H Creatinine 0.6 L Est GFR ( Amer) > 60 Est GFR (Non-Af Amer) > 60 Random Glucose 84 Calcium 7.2 L Phosphorus 3.6 Magnesium 1.7 Total Bilirubin 1.1 AST 75 H ALT 38 Alkaline Phosphatase 54 Total Protein 5.3 L Albumin 2.3 L Globulin 3.0 Albumin/Globulin Ratio 0.8 L Review of Systems - Review of Systems Systems not reviewed;Unavailable: Intubated Critical Care Progress Note - Nutrition Nutrition: Nutrition Category Date Time Status NPO Diet [DIET] Diets 11/11/17 Breakfast Active Assessment/Plan (1) Syncope and collapse Assessment and plan: PMHx DM type 2, HTN, COPD, lung CA, CHF. found down at home. Now off sedation , slowly waking up. will start weaning off of vent as he becomes more alert. Patient has history of diabetes, but sugars are very good, will check A1C. On empiric therapy for CAP, azithromycin and rocephin. Current Visit: Yes Status: Acute
[2017-11-13] MEDS: Albuterol-Ipratrop 3 mg / 0.5 (3 ml) UD INH SCH ×4 (02:45→19:25)
[2017-11-13] MEDS: DOPamine 400mg/250ml D5W 400 MG/250 ML BAG IV PRN (02:47)
[2017-11-13] MEDS: Propofol 10 mg/ml 1,000 MG/100 ML VIAL IV PRN (02:49)
[2017-11-13] MEDS: Sodium Chloride 0.9% 1,000 ML IV SCH ×3 (02:50→20:00)
[2017-11-13 05:04] LABS: ABG ALLEN TEST POS; ARTERIAL BLOOD GAS HCO3 36.2 mmol/L (21-28); ARTERIAL BLOOD GAS HEMOGLOBIN 13.6 g/dL (11.7-17.4); ARTERIAL BLOOD GAS PCO2 67 mm/Hg (35-45); ARTERIAL BLOOD GAS PH 7.41 (7.35-7.45); ARTERIAL BLOOD GAS PO2 111 mm/Hg (80-100); ARTERIAL BLOOD GAS TCO2 44.6 mmol/L (22-28)
[2017-11-13 06:51] LABS: BASO % 0.2 % (0.0-2.0); HEMOGLOBIN 11.8 g/dL (12.0-18.0); LYMPH # 0.3 K/uL (1.0-4.3); LYMPH % 5.4 % (20.0-40.0); MEAN CELL VOLUME 88.8 fL (80.0-94.0); MEAN CORPUSCULAR HEMOGLOBIN 28.5 pg (27.0-31.0); MEAN CORPUSCULAR HGB CONC 32.1 g/dL (33.0-37.0); MEAN PLATELET VOLUME 8.4 fL (7.2-11.7); MONO # 0.3 K/uL (0.0-0.8); MONO % 4.5 % (0.0-10.0); NEUT # 5.4 K/uL (1.8-7.0); NEUT % 89.9 % (50.0-75.0); NRBC % 0.4 % (0.0-2.0); PLATELET COUNT 121 K/uL (130-400); RBC 4.13 Mil/uL (4.40-5.90); RED CELL DISTRIBUTION WIDTH 17.6 % (11.5-14.5)
[2017-11-13 07:14] LABS: ALBUMIN 2.3 g/dL (3.5-5.0); CALCIUM 6.8 mg/dl (8.6-10.4); GFR AFRICAN-AMERICAN > 60; GFR NON-AFRICAN AMERICAN > 60
[2017-11-13 07:30] LABS: ALB/GLOB RATIO 0.8 (1.0-2.1); ALT/SGPT 37 U/L (21-72); AST/SGOT 78 U/L (17-59); BLOOD UREA NITROGEN 26 mg/dL (9-20); MAGNESIUM 1.7 mg/dL (1.6-2.3)
[2017-11-13] MEDS: Tiotropium 18 mcg Cap For Inhalation INH SCH (08:04)
[2017-11-13 08:55] LABS: BANDS 4 % (0-2); LYMPHOCYTE 4 % (20-40); MONOCYTE 3 % (0-10); NEUTROPHIL 89 % (50-75); TOTAL CELLS COUNTED 100
[2017-11-13 08:56] LABS: ANISOCYTOSIS MODERATE; HYPOCHROMIC SLIGHT; PLATELET ESTIMATE SLIGHTLY DECREASED (NORMAL); POLYCHROMIC SLIGHT; TARGET CELLS SLIGHT
[2017-11-13 08:59] LABS: TOXIC GRANULATION PRESENT
--- NOTE | 2017-11-13 09:14 | RAD ---
HISTORY: follow up COMPARISON: Comparison is made with 11/12/2017 FINDINGS: LUNGS: No active pulmonary disease. Hyperinflation of the lungs is again noted. The ET tube is seen at appropriate position PLEURA: No significant pleural effusion identified, no pneumothorax apparent. CARDIOVASCULAR: Normal. OSSEOUS STRUCTURES: No significant abnormalities. VISUALIZED UPPER ABDOMEN: The NG tube seen extending to the abdomen OTHER FINDINGS: None. IMPRESSION: No active disease. Appropriate position of the support devices.
[2017-11-13] MEDS: MethylPREDNISolone 40 mg Vial IVP SCH ×2 (10:01→21:25)
--- NOTE | 2017-11-13 14:34 | CP.PCM.CON ---
History of Present Illness - History of Present Illness History of Present Illness: I was asked to evaluate patient by Dr Mushtaq Denton. Patient is a 72 year old ,male admitted with dyspnea, and intubated. I cannot obtain further history. He is intubated in the ICU. Review of Systems - Review of Systems Systems not reviewed;Unavailable: Intubated Past Patient History - Past Medical History & Family History Past Medical History?: Yes - Past Social History Smoking Status: Former Smoker - CARDIAC Hx Congestive Heart Failure: Yes Hx Hypertension: Yes - PULMONARY Hx Asthma: Yes Hx Chronic Obstructive Pulmonary Disease (COPD): Yes - NEUROLOGICAL Hx Neurological Disorder: Yes Hx Dizziness: Yes - ENDOCRINE/METABOLIC Hx Diabetes Mellitus Type 2: Yes - MUSCULOSKELETAL/RHEUMATOLOGICAL Hx Falls: Yes - GASTROINTESTINAL Hx Gastrointestinal Disorders: No - GENITOURINARY/GYNECOLOGICAL Hx Genitourinary Disorders: No - PSYCHIATRIC Hx Substance Use: No - SURGICAL HISTORY Hx Surgeries: No - ANESTHESIA Hx Anesthesia: No Meds Allergies/Adverse Reactions: Allergies Allergy/AdvReac Type Severity Reaction Status Date / Time No Known Allergies Allergy Verified 11/11/17 13:45 - Medications Medications: Current Medications Albuterol/Ipratropium (Duoneb 3 Mg/0.5 Mg (3 Ml) Ud) 3 ml INH RQ6 [facility] Last Admin: 11/13/17 13:52 Dose: 3 ml Heparin Sodium (Porcine) (Heparin) 5,000 units SC Q8 [facility] Last Admin: 11/13/17 06:47 Dose: 5,000 units Dopamine HCl/Dextrose (Dopamine 400mg/250ml D5w) 400 mg in 250 mls @ 25.344 mls /hr IV .Q9H52M PRN; Protocol; 10 MCG/KG/MIN PRN Reason: TITRATE PER MD ORDER Last Admin: 11/13/17 02:47 Dose: 10 mcg/kg/min, 25.344 mls/hr Propofol (Diprivan) 1,000 mg in 100 mls @ 2.028 mls/hr IV .Q24H PRN; 5 MCG/KG/ MIN PRN Reason: Protocol Last Admin: 11/13/17 02:49 Dose: 30 mcg/kg/min, 12.165 mls/hr Sodium Chloride (Sodium Chloride 0.9%) 1,000 mls @ 100 mls/hr IV .Q10H [facility] Last Admin: 11/13/17 02:50 Dose: Not Given Methylprednisolone (Solu-Medrol) 40 mg IVP Q12 [facility] Last Admin: 11/13/17 10:01 Dose: 40 mg Pantoprazole Sodium (Protonix Inj) 40 mg IVP DAILY [facility] Last Admin: 11/13/17 10:01 Dose: 40 mg Tiotropium [place] (Spiriva) 18 mcg INH RQ24 [facility] Last Admin: 11/13/17 08:04 Dose: Not Given Physical Exam - Constitutional Appears: Non-toxic - Head Exam Head Exam: NORMAL INSPECTION - Eye Exam Eye Exam: Normal appearance - ENT Exam ENT Exam: Mucous Membranes Moist - Neck Exam Neck exam: Positive for: Full Rom - Respiratory Exam Respiratory Exam: Decreased Breath Sounds - Cardiovascular Exam Cardiovascular Exam: REGULAR RHYTHM - GI/Abdominal Exam GI & Abdominal Exam: Normal Bowel Sounds - Rectal Exam Rectal Exam: Deferred - Extremities Exam Extremities exam: Negative for: pedal edema - Back Exam Back exam: NORMAL INSPECTION - Neurological Exam Neurological exam: Alert, Oriented x3 - Psychiatric Exam Psychiatric exam: Normal Affect - Skin Skin Exam: Normal Color Results - Vital Signs Recent Vital Signs: Last Vital Signs Temp 71.2 F L 11/13/17 06:06 Pulse 62 11/13/17 06:06 Resp 12 11/13/17 06:06 BP 144/90 11/13/17 06:06 Pulse Ox 100 11/13/17 06:06 - Labs Result Diagrams: 11/13/17 06:43 11/13/17 06:43 Labs: Laboratory Results - last 24 hr 11/12/17 11/12/17 11/13/17 13:30 13:30 04:50 WBC RBC Hgb Hct MCV MCH MCHC RDW Plt Count MPV Neut % (Auto) Lymph % (Auto) [place] % (Auto) Eos % (Auto) Baso % (Auto) Neut # Lymph # [place] # Eos # Baso # Neutrophils % (Manual) 79 H Band Neutrophils % 9 H Lymphocytes % (Manual) 4 L Monocytes % (Manual) 8 Toxic Granulation Platelet Estimate Normal Polychromasia Slight Hypochromasia (manual) Moderate Anisocytosis (manual) Slight Macrocytosis (manual) Moderate Target Cells Moderate Puncture Site Rr pCO2 67 H pO2 111 H HCO3 36.2 H ABG pH 7.41 ABG Total CO2 44.6 H ABG O2 Saturation 99.0 H ABG Base Excess 14.5 H ABG Hemoglobin 13.6 ABG Carboxyhemoglobin 2.0 H POC ABG HHb (Measured) 1.0 ABG Methemoglobin 1.2 Suraj Test Pos A-a O2 Difference 19.0 Respiratory Index 0.2 Hgb O2 Saturation 95.9 Vent Mode Prvc Mechanical Rate 12 FiO2 30.0 Tidal Volume 400 PEEP 5 Sodium 135 Potassium 3.5 L Chloride 91 L Carbon Dioxide 35 H Anion Gap 13 BUN 28 H Creatinine 0.6 L Est GFR ( Amer) > 60 Est GFR (Non-Af Amer) > 60 Random Glucose 84 Calcium 7.2 L Phosphorus 3.6 Magnesium 1.7 Total Bilirubin 1.1 AST 75 H ALT 38 Alkaline Phosphatase 54 Total Protein 5.3 L Albumin 2.3 L Globulin 3.0 Albumin/Globulin Ratio 0.8 L 11/13/17 11/13/17 06:43 06:43 WBC 6.0 RBC 4.13 L Hgb 11.8 L Hct 36.7 MCV 88.8 MCH 28.5 MCHC 32.1 L RDW 17.6 H Plt Count 121 L MPV 8.4 Neut % (Auto) 89.9 H Lymph % (Auto) 5.4 L [place] % (Auto) 4.5 Eos % (Auto) 0.0 Baso % (Auto) 0.2 Neut # 5.4 Lymph # 0.3 L [place] # 0.3 Eos # 0.0 Baso # 0.0 Neutrophils % (Manual) 89 H Band Neutrophils % 4 H Lymphocytes % (Manual) 4 L Monocytes % (Manual) 3 Toxic Granulation Present Platelet Estimate Slightly decreased L Polychromasia Slight Hypochromasia (manual) Slight Anisocytosis (manual) Moderate Macrocytosis (manual) Target Cells Slight Puncture Site pCO2 pO2 HCO3 ABG pH ABG Total CO2 ABG O2 Saturation ABG Base Excess ABG Hemoglobin ABG Carboxyhemoglobin POC ABG HHb (Measured) ABG Methemoglobin Suraj Test A-a O2 Difference Respiratory Index Hgb O2 Saturation Vent Mode Mechanical Rate FiO2 Tidal Volume PEEP Sodium 136 Potassium 4.1 Chloride 96 L Carbon Dioxide 37 H Anion Gap 7 L BUN 26 H Creatinine 0.5 L Est GFR ( Amer) > 60 Est GFR (Non-Af Amer) > 60 Random Glucose 131 H Calcium 6.8 L Phosphorus 3.4 Magnesium 1.7 Total Bilirubin 0.7 AST 78 H ALT 37 Alkaline Phosphatase 45 Total Protein 5.3 L Albumin 2.3 L Globulin 3.0 Albumin/Globulin Ratio 0.8 L - EKG Data EKG Interpreted by: Myself EKG shows normal: Sinus rhythm Assessment & Plan (1) Acute hypercapnic respiratory failure Assessment and Plan: unclear etiology. I will review echocardiogram Status: Acute
--- NOTE | 2017-11-13 15:25 | CP.PCM.CON ---
History of Present Illness - History of Present Illness History of Present Illness: reason for consultation: acute respiratory failure 72-year-old male with COPD, hyperlipidemia was intubated for hypercapnic respiratory failure and change in mental status. The patient awake responsive tolerating CPAP.no further information available Review of Systems - Review of Systems Systems not reviewed;Unavailable: Intubated Past Patient History - Past Medical History & Family History Past Medical History?: Yes - Past Social History Smoking Status: Former Smoker - CARDIAC Hx Congestive Heart Failure: Yes Hx Hypertension: Yes - PULMONARY Hx Asthma: Yes Hx Chronic Obstructive Pulmonary Disease (COPD): Yes - NEUROLOGICAL Hx Neurological Disorder: Yes Hx Dizziness: Yes - ENDOCRINE/METABOLIC Hx Diabetes Mellitus Type 2: Yes - MUSCULOSKELETAL/RHEUMATOLOGICAL Hx Falls: Yes - GASTROINTESTINAL Hx Gastrointestinal Disorders: No - GENITOURINARY/GYNECOLOGICAL Hx Genitourinary Disorders: No - PSYCHIATRIC Hx Substance Use: No - SURGICAL HISTORY Hx Surgeries: No - ANESTHESIA Hx Anesthesia: No Meds Allergies/Adverse Reactions: Allergies Allergy/AdvReac Type Severity Reaction Status Date / Time No Known Allergies Allergy Verified 11/11/17 13:45 - Medications Medications: Current Medications Albuterol/Ipratropium (Duoneb 3 Mg/0.5 Mg (3 Ml) Ud) 3 ml INH RQ6 [facility] Last Admin: 11/13/17 13:52 Dose: 3 ml Heparin Sodium (Porcine) (Heparin) 5,000 units SC Q8 [facility] Last Admin: 11/13/17 06:47 Dose: 5,000 units Dopamine HCl/Dextrose (Dopamine 400mg/250ml D5w) 400 mg in 250 mls @ 25.344 mls /hr IV .Q9H52M PRN; Protocol; 10 MCG/KG/MIN PRN Reason: TITRATE PER MD ORDER Last Admin: 11/13/17 02:47 Dose: 10 mcg/kg/min, 25.344 mls/hr Propofol (Diprivan) 1,000 mg in 100 mls @ 2.028 mls/hr IV .Q24H PRN; 5 MCG/KG/ MIN PRN Reason: Protocol Last Admin: 11/13/17 02:49 Dose: 30 mcg/kg/min, 12.165 mls/hr Sodium Chloride (Sodium Chloride 0.9%) 1,000 mls @ 100 mls/hr IV .Q10H [facility] Last Admin: 11/13/17 02:50 Dose: Not Given Methylprednisolone (Solu-Medrol) 40 mg IVP Q12 [facility] Last Admin: 11/13/17 10:01 Dose: 40 mg Pantoprazole Sodium (Protonix Inj) 40 mg IVP DAILY [facility] Last Admin: 11/13/17 10:01 Dose: 40 mg Tiotropium [place] (Spiriva) 18 mcg INH RQ24 [facility] Last Admin: 11/13/17 08:04 Dose: Not Given Physical Exam - Head Exam Head Exam: ATRAUMATIC, NORMOCEPHALIC - Eye Exam Eye Exam: Normal appearance - ENT Exam ENT Exam: Mucous Membranes Moist - Neck Exam Neck exam: Positive for: Normal Inspection - Respiratory Exam Respiratory Exam: Decreased Breath Sounds - Cardiovascular Exam Cardiovascular Exam: REGULAR RHYTHM - GI/Abdominal Exam GI & Abdominal Exam: Normal Bowel Sounds, Soft - Extremities Exam Extremities exam: Positive for: normal inspection Results - Vital Signs Recent Vital Signs: Last Vital Signs Temp 71.2 F L 11/13/17 06:06 Pulse 79 11/13/17 15:06 Resp 11 L 11/13/17 15:06 BP 122/75 11/13/17 15:06 Pulse Ox 100 11/13/17 15:06 - Labs Result Diagrams: 11/13/17 06:43 11/13/17 06:43 Labs: Laboratory Results - last 24 hr 11/13/17 11/13/17 11/13/17 04:50 06:43 06:43 WBC 6.0 RBC 4.13 L Hgb 11.8 L Hct 36.7 MCV 88.8 MCH 28.5 MCHC 32.1 L RDW 17.6 H Plt Count 121 L MPV 8.4 Neut % (Auto) 89.9 H Lymph % (Auto) 5.4 L [place] % (Auto) 4.5 Eos % (Auto) 0.0 Baso % (Auto) 0.2 Neut # 5.4 Lymph # 0.3 L [place] # 0.3 Eos # 0.0 Baso # 0.0 Neutrophils % (Manual) 89 H Band Neutrophils % 4 H Lymphocytes % (Manual) 4 L Monocytes % (Manual) 3 Toxic Granulation Present Platelet Estimate Slightly decreased L Polychromasia Slight Hypochromasia (manual) Slight Anisocytosis (manual) Moderate Target Cells Slight Puncture Site Rr pCO2 67 H pO2 111 H HCO3 36.2 H ABG pH 7.41 ABG Total CO2 44.6 H ABG O2 Saturation 99.0 H ABG Base Excess 14.5 H ABG Hemoglobin 13.6 ABG Carboxyhemoglobin 2.0 H POC ABG HHb (Measured) 1.0 ABG Methemoglobin 1.2 Suraj Test Pos A-a O2 Difference 19.0 Respiratory Index 0.2 Hgb O2 Saturation 95.9 Vent Mode Prvc Mechanical Rate 12 FiO2 30.0 Tidal Volume 400 PEEP 5 Sodium 136 Potassium 4.1 Chloride 96 L Carbon Dioxide 37 H Anion Gap 7 L BUN 26 H Creatinine 0.5 L Est GFR ( Amer) > 60 Est GFR (Non-Af Amer) > 60 Random Glucose 131 H Calcium 6.8 L Phosphorus 3.4 Magnesium 1.7 Total Bilirubin 0.7 AST 78 H ALT 37 Alkaline Phosphatase 45 Total Protein 5.3 L Albumin 2.3 L Globulin 3.0 Albumin/Globulin Ratio 0.8 L Assessment & Plan (1) Acute hypercapnic respiratory failure Status: Acute Comment: acute hypercapnic respiratory failure secondary to COPD exacerbation. Continue nebulizer treatment and IV steroids. wean to extubate (2) COPD exacerbation Status: Acute
--- NOTE | 2017-11-13 15:40 | CP.PCM.PN ---
Subjective - Date & Time of Evaluation Date of Evaluation: 11/13/17 Time of Evaluation: 15:20 - Subjective Subjective: clinically same Objective - Vital Signs/Intake and Output Vital Signs (last 24 hours): Temp Pulse Resp BP Pulse Ox 71.2 F L 79 11 L 122/75 100 11/13/17 06:06 11/13/17 15:06 11/13/17 15:06 11/13/17 15:06 11/13/17 15:06 Intake and Output: 11/13/17 11/13/17 06:59 18:59 Intake Total 609.4 80.4 Output Total 600 350 Balance 9.4 -269.6 - Medications Medications: Current Medications Albuterol/Ipratropium (Duoneb 3 Mg/0.5 Mg (3 Ml) Ud) 3 ml INH RQ6 [facility] Last Admin: 11/13/17 13:52 Dose: 3 ml Heparin Sodium (Porcine) (Heparin) 5,000 units SC Q8 [facility] Last Admin: 11/13/17 06:47 Dose: 5,000 units Dopamine HCl/Dextrose (Dopamine 400mg/250ml D5w) 400 mg in 250 mls @ 25.344 mls /hr IV .Q9H52M PRN; Protocol; 10 MCG/KG/MIN PRN Reason: TITRATE PER MD ORDER Last Admin: 11/13/17 02:47 Dose: 10 mcg/kg/min, 25.344 mls/hr Propofol (Diprivan) 1,000 mg in 100 mls @ 2.028 mls/hr IV .Q24H PRN; 5 MCG/KG/ MIN PRN Reason: Protocol Last Admin: 11/13/17 02:49 Dose: 30 mcg/kg/min, 12.165 mls/hr Sodium Chloride (Sodium Chloride 0.9%) 1,000 mls @ 100 mls/hr IV .Q10H [facility] Last Admin: 11/13/17 02:50 Dose: Not Given Methylprednisolone (Solu-Medrol) 40 mg IVP Q12 [facility] Last Admin: 11/13/17 10:01 Dose: 40 mg Pantoprazole Sodium (Protonix Inj) 40 mg IVP DAILY [facility] Last Admin: 11/13/17 10:01 Dose: 40 mg Tiotropium [place] (Spiriva) 18 mcg INH RQ24 [facility] Last Admin: 11/13/17 08:04 Dose: Not Given - Labs Labs: 11/13/17 06:43 11/13/17 06:43 PT 20.4 SECONDS (9.7-12.2) H 11/11/17 14:13 INR 1.8 11/11/17 14:13 APTT 54 SECONDS (21-34) H 11/11/17 14:13 - Constitutional Appears: Well - Head Exam Head Exam: ATRAUMATIC, NORMAL INSPECTION, NORMOCEPHALIC - Eye Exam Eye Exam: EOMI, Normal appearance, PERRL Pupil Exam: NORMAL ACCOMODATION, PERRL - ENT Exam ENT Exam: Mucous Membranes Moist, Normal Exam - Neck Exam Neck Exam: Full ROM, Normal Inspection. absent: Lymphadenopathy - Respiratory Exam Respiratory Exam: Decreased Breath Sounds - Cardiovascular Exam Cardiovascular Exam: REGULAR RHYTHM, +S1, +S2 - GI/Abdominal Exam GI & Abdominal Exam: Soft, Diminished Bowel Sounds - Rectal Exam Rectal Exam: Deferred
--- NOTE | 2017-11-13 18:44 | CP.CCUPN ---
CCU Subjective - Physician Review Events Since Last Encounter (Free Text): 11/13/17 18:42 more alert today, following commands. CCU Objective - Vital Signs / Intake & Output Vital Signs (Last 4 hours): Vital Signs Pulse Resp BP Pulse Ox 11/13/17 15:06 79 11 L 122/75 100 11/13/17 15:00 81 12 100 11/13/17 14:52 78 8 L 122/77 99 Intake and Output (Last 8hrs): Intake & Output 11/13/17 11/13/17 11/13/17 06:59 14:59 22:59 Intake Total 454.2 80.4 0 Output Total 400 300 50 Balance 54.2 -219.6 -50 Weight 156 lb Intake: IV 100 Intake, IV Amount 194.2 20.4 Left Forearm 97.6 Right Proximal Port 96.6 20.4 Femoral Oral 0 Tube Feeding 160 60 Output: Urine 400 300 50 Urethral ([place]) 400 300 50 - Physical Exam Head: Positive for: Atraumatic, Normocephalic Pupils: Positive for: PERRL Extroacular Muscles: Positive for: EOMI Conjunctiva: Positive for: Normal Mouth: Positive for: Moist Mucous Membranes Respiratory/Chest: Positive for: Clear to Auscultation, Good Air Exchange, Respiratory Distress Cardiovascular: Positive for: Regular Rate and Rhythm Abdomen: Negative for: Tenderness, Distention Psychiatric: Positive for: Alert. Negative for: Oriented x 3 - Medications Active Medications: Active Medications Generic Name Dose Route Start Last Admin Trade Name Freq PRN Reason Stop Dose Admin Albuterol/Ipratropium 3 ml 11/11/17 20:00 11/13/17 13:52 Duoneb 3 Mg/0.5 Mg (3 Ml) Ud INH 3 ml RQ6 [facility] Administration Heparin Sodium (Porcine) 5,000 units 11/11/17 22:00 11/13/17 14:33 Heparin SC 5,000 units Q8 [facility] Administration Sodium Chloride 1,000 mls @ 100 mls/hr 11/11/17 19:00 11/13/17 17:39 Sodium Chloride 0.9% IV Not Given .Q10H [facility] Methylprednisolone 40 mg 11/11/17 22:00 11/13/17 10:01 Solu-Medrol IVP 40 mg Q12 [facility] Administration Pantoprazole Sodium 40 mg 11/11/17 17:30 11/13/17 10:01 Protonix Inj IVP 40 mg DAILY [facility] Administration Tiotropium [place] 18 mcg 11/13/17 08:00 11/13/17 08:04 Spiriva INH Not Given RQ24 [facility] - Patient Studies Lab Studies: Microbiology Studies 11/11/17 13:54 Blood Culture - Preliminary Blood NO GROWTH AFTER 48 HOURS 11/11/17 14:25 Blood Culture - Preliminary Blood NO GROWTH AFTER 48 HOURS Lab Studies 11/13/17 11/13/17 11/13/17 Range/Units 06:43 06:43 04:50 WBC 6.0 (4.8-10.8) K/uL RBC 4.13 L (4.40-5.90) Mil/uL Hgb 11.8 L (12.0-18.0) g/dL Hct 36.7 (35.0-51.0) % MCV 88.8 (80.0-94.0) fL MCH 28.5 (27.0-31.0) pg MCHC 32.1 L (33.0-37.0) g/dL RDW 17.6 H (11.5-14.5) % Plt Count 121 L (130-400) K/uL MPV 8.4 (7.2-11.7) fL Neut % (Auto) 89.9 H (50.0-75.0) % Lymph % (Auto) 5.4 L (20.0-40.0) % [place] % (Auto) 4.5 (0.0-10.0) % Eos % (Auto) 0.0 (0.0-4.0) % Baso % (Auto) 0.2 (0.0-2.0) % Neut # 5.4 (1.8-7.0) K/uL Lymph # 0.3 L (1.0-4.3) K/uL [place] # 0.3 (0.0-0.8) K/uL Eos # 0.0 (0.0-0.7) K/uL Baso # 0.0 (0.0-0.2) K/uL Neutrophils % (Manual) 89 H (50-75) % Band Neutrophils % 4 H (0-2) % Lymphocytes % (Manual) 4 L (20-40) % Monocytes % (Manual) 3 (0-10) % Toxic Granulation Present Platelet Estimate Slightly decreased L (NORMAL) Polychromasia Slight Hypochromasia (manual) Slight Anisocytosis (manual) Moderate Target Cells Slight Puncture Site Rr pCO2 67 H (35-45) mm/Hg pO2 111 H (80-100) mm/Hg HCO3 36.2 H (21-28) mmol/L ABG pH 7.41 (7.35-7.45) ABG Total CO2 44.6 H (22-28) mmol/L ABG O2 Saturation 99.0 H (95-98) % ABG Base Excess 14.5 H (-2.0-3.0) mmol/L ABG Hemoglobin 13.6 (11.7-17.4) g/dL ABG Carboxyhemoglobin 2.0 H (0.5-1.5) % POC ABG HHb (Measured) 1.0 (0.0-5.0) % ABG Methemoglobin 1.2 (0.0-3.0) % Suraj Test Pos A-a O2 Difference 19.0 mm/Hg Respiratory Index 0.2 Hgb O2 Saturation 95.9 (95.0-98.0) % Vent Mode Prvc Mechanical Rate 12 FiO2 30.0 % Tidal Volume 400 PEEP 5 Sodium 136 (132-148) mmol/L Potassium 4.1 (3.6-5.2) mmol/L Chloride 96 L (98-107) mmol/L Carbon Dioxide 37 H (22-30) mmol/L Anion Gap 7 L (10-20) BUN 26 H (9-20) mg/dL Creatinine 0.5 L (0.8-1.5) mg/dL Est GFR ( Amer) > 60 Est GFR (Non-Af Amer) > 60 Random Glucose 131 H (75-110) mg/dL Calcium 6.8 L (8.6-10.4) mg/dl Phosphorus 3.4 (2.5-4.5) mg/dL Magnesium 1.7 (1.6-2.3) mg/dL Total Bilirubin 0.7 (0.2-1.3) mg/dL AST 78 H (17-59) U/L ALT 37 (21-72) U/L Alkaline Phosphatase 45 (38-126) U/L Total Protein 5.3 L (6.3-8.3) g/dL Albumin 2.3 L (3.5-5.0) g/dL Globulin 3.0 (2.2-3.9) gm/dL Albumin/Globulin Ratio 0.8 L (1.0-2.1) Laboratory Results - last 24 hr 11/13/17 11/13/17 11/13/17 04:50 06:43 06:43 WBC 6.0 RBC 4.13 L Hgb 11.8 L Hct 36.7 MCV 88.8 MCH 28.5 MCHC 32.1 L RDW 17.6 H Plt Count 121 L MPV 8.4 Neut % (Auto) 89.9 H Lymph % (Auto) 5.4 L [place] % (Auto) 4.5 Eos % (Auto) 0.0 Baso % (Auto) 0.2 Neut # 5.4 Lymph # 0.3 L [place] # 0.3 Eos # 0.0 Baso # 0.0 Neutrophils % (Manual) 89 H Band Neutrophils % 4 H Lymphocytes % (Manual) 4 L Monocytes % (Manual) 3 Toxic Granulation Present Platelet Estimate Slightly decreased L Polychromasia Slight Hypochromasia (manual) Slight Anisocytosis (manual) Moderate Target Cells Slight Puncture Site Rr pCO2 67 H pO2 111 H HCO3 36.2 H ABG pH 7.41 ABG Total CO2 44.6 H ABG O2 Saturation 99.0 H ABG Base Excess 14.5 H ABG Hemoglobin 13.6 ABG Carboxyhemoglobin 2.0 H POC ABG HHb (Measured) 1.0 ABG Methemoglobin 1.2 Suraj Test Pos A-a O2 Difference 19.0 Respiratory Index 0.2 Hgb O2 Saturation 95.9 Vent Mode Prvc Mechanical Rate 12 FiO2 30.0 Tidal Volume 400 PEEP 5 Sodium 136 Potassium 4.1 Chloride 96 L Carbon Dioxide 37 H Anion Gap 7 L BUN 26 H Creatinine 0.5 L Est GFR ( Amer) > 60 Est GFR (Non-Af Amer) > 60 Random Glucose 131 H Calcium 6.8 L Phosphorus 3.4 Magnesium 1.7 Total Bilirubin 0.7 AST 78 H ALT 37 Alkaline Phosphatase 45 Total Protein 5.3 L Albumin 2.3 L Globulin 3.0 Albumin/Globulin Ratio 0.8 L Review of Systems - Review of Systems Systems not reviewed;Unavailable: Intubated Critical Care Progress Note - Nutrition Nutrition: Nutrition Category Date Time Status NPO Diet [DIET] Diets 11/11/17 Breakfast Active Assessment/Plan (1) Syncope and collapse Assessment and plan: PMHx DM type 2, HTN, COPD, lung CA, CHF. found down at home. Extubated (11/13/17). Patient has history of diabetes, but sugars are very good, will check A1C. Stopped all abx. Cause of patient's collapse and hypothermia still unknown. Critical care time 35 minutes Current Visit: Yes Status: Acute
[2017-11-14] MEDS: Albuterol-Ipratrop 3 mg / 0.5 (3 ml) UD INH SCH ×4 (01:16→20:13)
[2017-11-14 06:37] LABS: BASO % 0.2 % (0.0-2.0); HEMOGLOBIN 12.1 g/dL (12.0-18.0); LYMPH # 0.2 K/uL (1.0-4.3); LYMPH % 4.6 % (20.0-40.0); MEAN CELL VOLUME 88.8 fL (80.0-94.0); MEAN CORPUSCULAR HEMOGLOBIN 28.5 pg (27.0-31.0); MEAN PLATELET VOLUME 8.3 fL (7.2-11.7); MONO # 0.3 K/uL (0.0-0.8); NEUT # 3.9 K/uL (1.8-7.0); NEUT % 89.2 % (50.0-75.0); NRBC % 0.4 % (0.0-2.0); PLATELET COUNT 103 K/uL (130-400); RBC 4.25 Mil/uL (4.40-5.90); RED CELL DISTRIBUTION WIDTH 17.4 % (11.5-14.5); WHITE BLOOD COUNT 4.4 K/uL (4.8-10.8)
[2017-11-14 07:04] LABS: ALB/GLOB RATIO 0.8 (1.0-2.1); ALBUMIN 2.6 g/dL (3.5-5.0); ALT/SGPT 44 U/L (21-72); AST/SGOT 107 U/L (17-59); BLOOD UREA NITROGEN 25 mg/dL (9-20); CALCIUM 7.8 mg/dl (8.6-10.4); GFR AFRICAN-AMERICAN > 60; GFR NON-AFRICAN AMERICAN > 60; MAGNESIUM 1.9 mg/dL (1.6-2.3)
[2017-11-14] MEDS: Tiotropium 18 mcg Cap For Inhalation INH SCH (08:07)
[2017-11-14 08:20] LABS: BANDS 19 % (0-2); LARGE PLATELETS PRESENT; LYMPHOCYTE 6 % (20-40); MONOCYTE 6 % (0-10); NEUTROPHIL 69 % (50-75); PLATELET ESTIMATE SLIGHTLY DECREASED (NORMAL); TOTAL CELLS COUNTED 100
[2017-11-14 08:24] LABS: ABG ALLEN TEST PO; ARTERIAL BLOOD GAS HCO3 38.1 mmol/L (21-28); ARTERIAL BLOOD GAS HEMOGLOBIN 12.4 g/dL (11.7-17.4); ARTERIAL BLOOD GAS O2 SAT 98.9 % (95-98); ARTERIAL BLOOD GAS PCO2 82 mm/Hg (35-45); ARTERIAL BLOOD GAS PH 7.36 (7.35-7.45); ARTERIAL BLOOD GAS PO2 113 mm/Hg (80-100); ARTERIAL BLOOD GAS TCO2 48.8 mmol/L (22-28)
[2017-11-14] MEDS: MethylPREDNISolone 40 mg Vial IVP SCH ×2 (09:46→21:09)
--- NOTE | 2017-11-14 11:46 | CP.PCM.PN ---
Subjective - Date & Time of Evaluation Date of Evaluation: 11/14/17 Time of Evaluation: 15:00 - Subjective Subjective: clinically same Objective - Vital Signs/Intake and Output Vital Signs (last 24 hours): Temp Pulse Resp BP Pulse Ox 97.3 F L 94 H 12 129/78 91 L 11/14/17 08:00 11/14/17 10:00 11/14/17 10:00 11/14/17 09:52 11/14/17 10:00 Intake and Output: 11/14/17 11/14/17 06:59 18:59 Intake Total 480 Output Total 420 115 Balance 60 -115 - Medications Medications: Current Medications Albuterol/Ipratropium (Duoneb 3 Mg/0.5 Mg (3 Ml) Ud) 3 ml INH RQ6 [facility] Last Admin: 11/14/17 07:35 Dose: 3 ml Heparin Sodium (Porcine) (Heparin) 5,000 units SC Q8 [facility] Last Admin: 11/14/17 06:32 Dose: 5,000 units Methylprednisolone (Solu-Medrol) 40 mg IVP Q12 [facility] Last Admin: 11/14/17 09:46 Dose: 40 mg Pantoprazole Sodium (Protonix Inj) 40 mg IVP DAILY [facility] Last Admin: 11/14/17 09:46 Dose: 40 mg Tiotropium [place] (Spiriva) 18 mcg INH RQ24 [facility] Last Admin: 11/14/17 08:07 Dose: 18 mcg - Labs Labs: 11/14/17 06:20 11/14/17 06:20 PT 20.4 SECONDS (9.7-12.2) H 11/11/17 14:13 INR 1.8 11/11/17 14:13 APTT 54 SECONDS (21-34) H 11/11/17 14:13 - Constitutional Appears: Well - Head Exam Head Exam: ATRAUMATIC, NORMAL INSPECTION, NORMOCEPHALIC - Eye Exam Eye Exam: EOMI, Normal appearance, PERRL Pupil Exam: NORMAL ACCOMODATION, PERRL - ENT Exam ENT Exam: Mucous Membranes Moist, Normal Exam - Neck Exam Neck Exam: Full ROM, Normal Inspection. absent: Lymphadenopathy - Respiratory Exam Respiratory Exam: Decreased Breath Sounds - Cardiovascular Exam Cardiovascular Exam: REGULAR RHYTHM, +S1, +S2 - GI/Abdominal Exam GI & Abdominal Exam: Soft, Diminished Bowel Sounds - Rectal Exam Rectal Exam: Deferred
--- NOTE | 2017-11-14 12:43 | CARD ---
APPROVED REPORT EKG Measurement Heart [id number] <Conclusion> Sinus bradycardia with occasional premature ventricular complexes Low voltage QRS Septal infarct, age undetermined Prolonged QT Abnormal ECG
--- NOTE | 2017-11-14 14:26 | CP.PCM.PN ---
Subjective - Date & Time of Evaluation Date of Evaluation: 11/14/17 Time of Evaluation: 10:00 - Subjective Subjective: the patient seen and examined Extubated on BiPAP afebrile Responsive Being treated for COPD/hypercapnic respiratory failure Objective - Vital Signs/Intake and Output Vital Signs (last 24 hours): Temp Pulse Resp BP Pulse Ox 97.3 F L 91 H 11 L 125/78 98 11/14/17 08:00 11/14/17 13:51 11/14/17 13:51 11/14/17 13:52 11/14/17 13:51 Intake and Output: 11/14/17 11/14/17 06:59 18:59 Intake Total 480 0 Output Total 420 115 Balance 60 -115 - Medications Medications: Current Medications Albuterol/Ipratropium (Duoneb 3 Mg/0.5 Mg (3 Ml) Ud) 3 ml INH RQ6 [facility] Last Admin: 11/14/17 13:14 Dose: 3 ml Heparin Sodium (Porcine) (Heparin) 5,000 units SC Q8 [facility] Last Admin: 11/14/17 06:32 Dose: 5,000 units Methylprednisolone (Solu-Medrol) 40 mg IVP Q12 [facility] Last Admin: 11/14/17 09:46 Dose: 40 mg Pantoprazole Sodium (Protonix Inj) 40 mg IVP DAILY [facility] Last Admin: 11/14/17 09:46 Dose: 40 mg Tiotropium [place] (Spiriva) 18 mcg INH RQ24 [facility] Last Admin: 11/14/17 08:07 Dose: 18 mcg - Labs Labs: 11/14/17 06:20 11/14/17 06:20 PT 20.4 SECONDS (9.7-12.2) H 11/11/17 14:13 INR 1.8 11/11/17 14:13 APTT 54 SECONDS (21-34) H 11/11/17 14:13 Assessment and Plan (1) Acute hypercapnic respiratory failure Status: Acute (2) COPD exacerbation Status: Acute
--- NOTE | 2017-11-14 15:28 | CP.PCM.CON ---
History of Present Illness - History of Present Illness History of Present Illness: Mr. Carmona is a 72-year-old man with a past medical history of COPD, who was found down, and is thought to have been down for about two days. He was hypothermic, acidotic, and was intubated for airway protection. After being extubated, there was concern that he continued to have altered mental status. He did not have fever, nuchal rigidity, or other meningeal signs. When I saw the patient, he was on BiPAP, and was able to remove it to answer questions and followed commands appropriately. Review of Systems - Review of Systems All systems: reviewed and no additional remarkable complaints except Past Patient History - Past Medical History & Family History Past Medical History?: Yes - Past Social History Smoking Status: Former Smoker - CARDIAC Hx Congestive Heart Failure: Yes Hx Hypertension: Yes - PULMONARY Hx Asthma: Yes Hx Chronic Obstructive Pulmonary Disease (COPD): Yes - NEUROLOGICAL Hx Neurological Disorder: Yes Hx Dizziness: Yes - ENDOCRINE/METABOLIC Hx Diabetes Mellitus Type 2: Yes - MUSCULOSKELETAL/RHEUMATOLOGICAL Hx Falls: Yes - GASTROINTESTINAL Hx Gastrointestinal Disorders: No - GENITOURINARY/GYNECOLOGICAL Hx Genitourinary Disorders: No - PSYCHIATRIC Hx Substance Use: No - SURGICAL HISTORY Hx Surgeries: No - ANESTHESIA Hx Anesthesia: No Meds Allergies/Adverse Reactions: Allergies Allergy/AdvReac Type Severity Reaction Status Date / Time No Known Allergies Allergy Verified 11/11/17 13:45 - Medications Medications: Current Medications Albuterol/Ipratropium (Duoneb 3 Mg/0.5 Mg (3 Ml) Ud) 3 ml INH RQ6 [facility] Last Admin: 11/14/17 13:14 Dose: 3 ml Heparin Sodium (Porcine) (Heparin) 5,000 units SC Q8 [facility] Last Admin: 11/14/17 15:14 Dose: 5,000 units Methylprednisolone (Solu-Medrol) 40 mg IVP Q12 [facility] Last Admin: 11/14/17 09:46 Dose: 40 mg Pantoprazole Sodium (Protonix Inj) 40 mg IVP DAILY [facility] Last Admin: 11/14/17 09:46 Dose: 40 mg Tiotropium [place] (Spiriva) 18 mcg INH RQ24 [facility] Last Admin: 11/14/17 08:07 Dose: 18 mcg Physical Exam - Constitutional Appears: Chronically Ill - Head Exam Head Exam: ATRAUMATIC, NORMAL INSPECTION, NORMOCEPHALIC - Eye Exam Eye Exam: EOMI, Normal appearance, PERRL - ENT Exam ENT Exam: Mucous Membranes Moist, Normal Exam - Neck Exam Neck exam: Positive for: Normal Inspection - Respiratory Exam Respiratory Exam: Prolonged Expiratory Phase - Cardiovascular Exam Cardiovascular Exam: REGULAR RHYTHM, +S1, +S2 - GI/Abdominal Exam GI & Abdominal Exam: Normal Bowel Sounds, Soft. absent: Tenderness - Rectal Exam Rectal Exam: Deferred - Neurological Exam Neurological exam: Abnormal Gait, Alert, CN II-XII Intact, Oriented x3, Reflexes Normal - Psychiatric Exam Psychiatric exam: Normal Affect, Normal Mood Results - Vital Signs Recent Vital Signs: Last Vital Signs Temp 97.5 F L 11/14/17 12:00 Pulse 101 H 11/14/17 14:37 Resp 11 L 11/14/17 14:37 BP 137/85 11/14/17 14:37 Pulse Ox 95 11/14/17 14:37 - Labs Result Diagrams: 11/14/17 06:20 11/14/17 06:20 Labs: Laboratory Results - last 24 hr 11/14/17 11/14/17 11/14/17 06:20 06:20 08:20 WBC 4.4 L RBC 4.25 L Hgb 12.1 Hct 37.8 MCV 88.8 MCH 28.5 MCHC 32.0 L RDW 17.4 H Plt Count 103 L MPV 8.3 Neut % (Auto) 89.2 H Lymph % (Auto) 4.6 L [place] % (Auto) 6.0 Eos % (Auto) 0.0 Baso % (Auto) 0.2 Neut # 3.9 Lymph # 0.2 L [place] # 0.3 Eos # 0.0 Baso # 0.0 Neutrophils % (Manual) 69 Band Neutrophils % 19 H* Lymphocytes % (Manual) 6 L Monocytes % (Manual) 6 Platelet Estimate Slightly decreased L Large Platelets Present Puncture Site Rra pCO2 82 H* pO2 113 H HCO3 38.1 H ABG pH 7.36 ABG Total CO2 48.8 H ABG O2 Saturation 98.9 H ABG Base Excess 16.9 H ABG Hemoglobin 12.4 ABG Carboxyhemoglobin 1.9 H POC ABG HHb (Measured) 1.1 ABG Methemoglobin 0.8 Suraj Test Po A-a O2 Difference 6.0 Respiratory Index 0.1 Hgb O2 Saturation 96.2 Liter Flow 3.5 FiO2 31.0 Crit Value Called To Dr. solorzano Crit Value Called By Nelia mayfield,college coach Crit Value Read Back Y Blood Gas Notified Time 825 Sodium 135 Potassium 3.9 Chloride 94 L Carbon Dioxide 40 H* Anion Gap 5 L BUN 25 H Creatinine 0.5 L Est GFR ( Amer) > 60 Est GFR (Non-Af Amer) > 60 Random Glucose 103 Calcium 7.8 L Phosphorus 3.0 Magnesium 1.9 Total Bilirubin 0.8 AST 107 H D ALT 44 Alkaline Phosphatase 52 Total Protein 5.8 L Albumin 2.6 L Globulin 3.2 Albumin/Globulin Ratio 0.8 L HIV 1&2 Antibody Screen 11/14/17 13:08 WBC RBC Hgb Hct MCV MCH MCHC RDW Plt Count MPV Neut % (Auto) Lymph % (Auto) [place] % (Auto) Eos % (Auto) Baso % (Auto) Neut # Lymph # [place] # Eos # Baso # Neutrophils % (Manual) Band Neutrophils % Lymphocytes % (Manual) Monocytes % (Manual) Platelet Estimate Large Platelets Puncture Site pCO2 pO2 HCO3 ABG pH ABG Total CO2 ABG O2 Saturation ABG Base Excess ABG Hemoglobin ABG Carboxyhemoglobin POC ABG HHb (Measured) ABG Methemoglobin Suraj Test A-a O2 Difference Respiratory Index Hgb O2 Saturation Liter Flow FiO2 Crit Value Called To Crit Value Called By Crit Value Read Back Blood Gas Notified Time Sodium Potassium Chloride Carbon Dioxide Anion Gap BUN Creatinine Est GFR ( Amer) Est GFR (Non-Af Amer) Random Glucose Calcium Phosphorus Magnesium Total Bilirubin AST ALT Alkaline Phosphatase Total Protein Albumin Globulin Albumin/Globulin Ratio HIV 1&2 Antibody Screen Negative Assessment & Plan (1) Toxic metabolic encephalopathy Assessment and Plan: Likely due to acidosis, hypoxia, hypothermia, sepsis, etc. I recommend treating the underlying cause. I do not recommend LP at this time since he is improving mentally and there is no indication that he has meningitis (i.e. no fever, nuchal rigidity or other meningeal signs). Please reconsult if the patient does not improve after treatment of the underlying cause. Thank you. Status: Acute Priority: High
--- NOTE | 2017-11-14 16:14 | CP.CCUPN ---
<Sarah Britton - Last Filed: 11/14/17 16:12> CCU Subjective - Physician Review Subjective (Free Text): 11/14/17 16:12 Patient seen and examined at bedside. Patient resting comfortably in bed and arousable, but noncommunicative. Abdirizak coma scale of 9. ROS is unattainable. CCU Objective - Vital Signs / Intake & Output Vital Signs (Last 4 hours): Vital Signs Pulse Resp BP Pulse Ox 11/14/17 15:22 93 H 13 134/78 88 L 11/14/17 15:07 98 H 16 127/75 86 L 11/14/17 15:00 98 H 15 91 L 11/14/17 14:52 94 H 18 112/67 87 L 11/14/17 14:37 101 H 11 L 137/85 95 11/14/17 14:22 91 H 8 L 138/77 96 11/14/17 14:07 89 9 L 140/80 97 11/14/17 14:00 92 H 10 L 97 11/14/17 13:52 92 H 11 L 125/78 97 11/14/17 13:51 91 H 11 L 98 11/14/17 13:37 90 9 L 152/79 H 94 L 11/14/17 13:35 92 H 11/14/17 13:22 89 9 L 143/81 95 11/14/17 13:07 92 H 12 133/80 94 L 11/14/17 13:00 95 H 12 94 L 11/14/17 12:52 93 H 12 137/81 96 11/14/17 12:37 94 H 11 L 137/82 89 L 11/14/17 12:22 90 11 L 132/81 94 L Intake and Output (Last 8hrs): Intake & Output 11/14/17 11/14/17 11/14/17 06:59 14:59 22:59 Intake Total 120 Output Total 280 235 30 Balance -280 -115 -30 Weight 164 lb 5 oz Intake: Oral 120 Output: Urine 280 235 30 Urethral (Echavarria) 280 235 30 Other: # Bowel Movements 1 - Physical Exam Head: Positive for: Atraumatic, Normocephalic Pupils: Positive for: PERRL Extroacular Muscles: Positive for: EOMI Conjunctiva: Positive for: Normal Mouth: Positive for: Moist Mucous Membranes Respiratory/Chest: Positive for: Good Air Exchange, Rales, Rhonchi. Negative for: Respiratory Distress Cardiovascular: Positive for: Regular Rate and Rhythm Abdomen: Negative for: Tenderness, Distention Psychiatric: Positive for: Alert. Negative for: Oriented x 3 - Medications Active Medications: Active Medications Generic Name Dose Route Start Last Admin Trade Name Freq PRN Reason Stop Dose Admin Albuterol/Ipratropium 3 ml 11/11/17 20:00 11/14/17 13:14 Duoneb 3 Mg/0.5 Mg (3 Ml) Ud INH 3 ml RQ6 JUANA Administration Heparin Sodium (Porcine) 5,000 units 11/11/17 22:00 11/14/17 15:14 Heparin SC 5,000 units Q8 JUANA Administration Methylprednisolone 40 mg 11/11/17 22:00 11/14/17 09:46 Solu-Medrol IVP 40 mg Q12 JUANA Administration Pantoprazole Sodium 40 mg 11/11/17 17:30 11/14/17 09:46 Protonix Inj IVP 40 mg DAILY JUANA Administration Tiotropium Asher 18 mcg 11/13/17 08:00 11/14/17 08:07 Spiriva INH 18 mcg RQ24 JUANA Administration - Patient Studies Lab Studies: Microbiology Studies 11/11/17 13:54 Blood Culture - Preliminary Blood NO GROWTH AFTER 3 DAYS 11/11/17 14:25 Blood Culture - Preliminary Blood NO GROWTH AFTER 3 DAYS Lab Studies 11/14/17 11/14/17 11/14/17 Range/Units 13:08 08:20 06:20 WBC (4.8-10.8) K/uL RBC (4.40-5.90) Mil/uL Hgb (12.0-18.0) g/dL Hct (35.0-51.0) % MCV (80.0-94.0) fL MCH (27.0-31.0) pg MCHC (33.0-37.0) g/dL RDW (11.5-14.5) % Plt Count (130-400) K/uL MPV (7.2-11.7) fL Neut % (Auto) (50.0-75.0) % Lymph % (Auto) (20.0-40.0) % [place] % (Auto) (0.0-10.0) % Eos % (Auto) (0.0-4.0) % Baso % (Auto) (0.0-2.0) % Neut # (1.8-7.0) K/uL Lymph # (1.0-4.3) K/uL [place] # (0.0-0.8) K/uL Eos # (0.0-0.7) K/uL Baso # (0.0-0.2) K/uL Neutrophils % (Manual) (50-75) % Band Neutrophils % (0-2) % Lymphocytes % (Manual) (20-40) % Monocytes % (Manual) (0-10) % Platelet Estimate (NORMAL) Large Platelets Puncture Site Rra pCO2 82 H* (35-45) mm/Hg pO2 113 H (80-100) mm/Hg HCO3 38.1 H (21-28) mmol/L ABG pH 7.36 (7.35-7.45) ABG Total CO2 48.8 H (22-28) mmol/L ABG O2 Saturation 98.9 H (95-98) % ABG Base Excess 16.9 H (-2.0-3.0) mmol/L ABG Hemoglobin 12.4 (11.7-17.4) g/dL ABG Carboxyhemoglobin 1.9 H (0.5-1.5) % POC ABG HHb (Measured) 1.1 (0.0-5.0) % ABG Methemoglobin 0.8 (0.0-3.0) % Suraj Test Po A-a O2 Difference 6.0 mm/Hg Respiratory Index 0.1 Hgb O2 Saturation 96.2 (95.0-98.0) % Liter Flow 3.5 FiO2 31.0 % Crit Value Called To Dr. solorzano Crit Value Called By Nelia mayfield,developer analyst Crit Value Read Back Y Blood Gas Notified Time 825 Sodium 135 (132-148) mmol/L Potassium 3.9 (3.6-5.2) mmol/L Chloride 94 L (98-107) mmol/L Carbon Dioxide 40 H* (22-30) mmol/L Anion Gap 5 L (10-20) BUN 25 H (9-20) mg/dL Creatinine 0.5 L (0.8-1.5) mg/dL Est GFR ( Amer) > 60 Est GFR (Non-Af Amer) > 60 Random Glucose 103 (75-110) mg/dL Calcium 7.8 L (8.6-10.4) mg/dl Phosphorus 3.0 (2.5-4.5) mg/dL Magnesium 1.9 (1.6-2.3) mg/dL Total Bilirubin 0.8 (0.2-1.3) mg/dL AST 107 H D (17-59) U/L ALT 44 (21-72) U/L Alkaline Phosphatase 52 (38-126) U/L Total Protein 5.8 L (6.3-8.3) g/dL Albumin 2.6 L (3.5-5.0) g/dL Globulin 3.2 (2.2-3.9) gm/dL Albumin/Globulin Ratio 0.8 L (1.0-2.1) HIV 1&2 Antibody Screen Negative (NEGATIVE) 11/14/17 Range/Units 06:20 WBC 4.4 L (4.8-10.8) K/uL RBC 4.25 L (4.40-5.90) Mil/uL Hgb 12.1 (12.0-18.0) g/dL Hct 37.8 (35.0-51.0) % MCV 88.8 (80.0-94.0) fL MCH 28.5 (27.0-31.0) pg MCHC 32.0 L (33.0-37.0) g/dL RDW 17.4 H (11.5-14.5) % Plt Count 103 L (130-400) K/uL MPV 8.3 (7.2-11.7) fL Neut % (Auto) 89.2 H (50.0-75.0) % Lymph % (Auto) 4.6 L (20.0-40.0) % [place] % (Auto) 6.0 (0.0-10.0) % Eos % (Auto) 0.0 (0.0-4.0) % Baso % (Auto) 0.2 (0.0-2.0) % Neut # 3.9 (1.8-7.0) K/uL Lymph # 0.2 L (1.0-4.3) K/uL [place] # 0.3 (0.0-0.8) K/uL Eos # 0.0 (0.0-0.7) K/uL Baso # 0.0 (0.0-0.2) K/uL Neutrophils % (Manual) 69 (50-75) % Band Neutrophils % 19 H* (0-2) % Lymphocytes % (Manual) 6 L (20-40) % Monocytes % (Manual) 6 (0-10) % Platelet Estimate Slightly decreased L (NORMAL) Large Platelets Present Puncture Site pCO2 (35-45) mm/Hg pO2 (80-100) mm/Hg HCO3 (21-28) mmol/L ABG pH (7.35-7.45) ABG Total CO2 (22-28) mmol/L ABG O2 Saturation (95-98) % ABG Base Excess (-2.0-3.0) mmol/L ABG Hemoglobin (11.7-17.4) g/dL ABG Carboxyhemoglobin (0.5-1.5) % POC ABG HHb (Measured) (0.0-5.0) % ABG Methemoglobin (0.0-3.0) % Suraj Test A-a O2 Difference mm/Hg Respiratory Index Hgb O2 Saturation (95.0-98.0) % Liter Flow FiO2 % Crit Value Called To Crit Value Called By Crit Value Read Back Blood Gas Notified Time Sodium (132-148) mmol/L Potassium (3.6-5.2) mmol/L Chloride (98-107) mmol/L Carbon Dioxide (22-30) mmol/L Anion Gap (10-20) BUN (9-20) mg/dL Creatinine (0.8-1.5) mg/dL Est GFR ( Amer) Est GFR (Non-Af Amer) Random Glucose (75-110) mg/dL Calcium (8.6-10.4) mg/dl Phosphorus (2.5-4.5) mg/dL Magnesium (1.6-2.3) mg/dL Total Bilirubin (0.2-1.3) mg/dL AST (17-59) U/L ALT (21-72) U/L Alkaline Phosphatase (38-126) U/L Total Protein (6.3-8.3) g/dL Albumin (3.5-5.0) g/dL Globulin (2.2-3.9) gm/dL Albumin/Globulin Ratio (1.0-2.1) HIV 1&2 Antibody Screen (NEGATIVE) Laboratory Results - last 24 hr 11/14/17 11/14/17 11/14/17 06:20 06:20 08:20 WBC 4.4 L RBC 4.25 L Hgb 12.1 Hct 37.8 MCV 88.8 MCH 28.5 MCHC 32.0 L RDW 17.4 H Plt Count 103 L MPV 8.3 Neut % (Auto) 89.2 H Lymph % (Auto) 4.6 L [place] % (Auto) 6.0 Eos % (Auto) 0.0 Baso % (Auto) 0.2 Neut # 3.9 Lymph # 0.2 L [place] # 0.3 Eos # 0.0 Baso # 0.0 Neutrophils % (Manual) 69 Band Neutrophils % 19 H* Lymphocytes % (Manual) 6 L Monocytes % (Manual) 6 Platelet Estimate Slightly decreased L Large Platelets Present Puncture Site Rra pCO2 82 H* pO2 113 H HCO3 38.1 H ABG pH 7.36 ABG Total CO2 48.8 H ABG O2 Saturation 98.9 H ABG Base Excess 16.9 H ABG Hemoglobin 12.4 ABG Carboxyhemoglobin 1.9 H POC ABG HHb (Measured) 1.1 ABG Methemoglobin 0.8 Suraj Test Po A-a O2 Difference 6.0 Respiratory Index 0.1 Hgb O2 Saturation 96.2 Liter Flow 3.5 FiO2 31.0 Crit Value Called To Dr. solorzano Crit Value Called By Nelia mayfield,developer analyst Crit Value Read Back Y Blood Gas Notified Time 825 Sodium 135 Potassium 3.9 Chloride 94 L Carbon Dioxide 40 H* Anion Gap 5 L BUN 25 H Creatinine 0.5 L Est GFR ( Amer) > 60 Est GFR (Non-Af Amer) > 60 Random Glucose 103 Calcium 7.8 L Phosphorus 3.0 Magnesium 1.9 Total Bilirubin 0.8 AST 107 H D ALT 44 Alkaline Phosphatase 52 Total Protein 5.8 L Albumin 2.6 L Globulin 3.2 Albumin/Globulin Ratio 0.8 L HIV 1&2 Antibody Screen 11/14/17 13:08 WBC RBC Hgb Hct MCV MCH MCHC RDW Plt Count MPV Neut % (Auto) Lymph % (Auto) [place] % (Auto) Eos % (Auto) Baso % (Auto) Neut # Lymph # [place] # Eos # Baso # Neutrophils % (Manual) Band Neutrophils % Lymphocytes % (Manual) Monocytes % (Manual) Platelet Estimate Large Platelets Puncture Site pCO2 pO2 HCO3 ABG pH ABG Total CO2 ABG O2 Saturation ABG Base Excess ABG Hemoglobin ABG Carboxyhemoglobin POC ABG HHb (Measured) ABG Methemoglobin Suraj Test A-a O2 Difference Respiratory Index Hgb O2 Saturation Liter Flow FiO2 Crit Value Called To Crit Value Called By Crit Value Read Back Blood Gas Notified Time Sodium Potassium Chloride Carbon Dioxide Anion Gap BUN Creatinine Est GFR ( Amer) Est GFR (Non-Af Amer) Random Glucose Calcium Phosphorus Magnesium Total Bilirubin AST ALT Alkaline Phosphatase Total Protein Albumin Globulin Albumin/Globulin Ratio HIV 1&2 Antibody Screen Negative Review of Systems - Review of Systems Review of Systems: AMS vs uncooperative Critical Care Progress Note - Nutrition Nutrition: Nutrition Category Date Time Status Heart Healthy Diet [DIET] Diets 11/13/17 Breakfast Active Assessment/Plan - Assessment and Plan (Free Text) Assessment: Syncope and collapse H/o COPD H/o HTN H/o CHF H/o DM2 H/o lung cancer Plan: Neuro: Neurology consulted; expresses low suspicion for meningitis and does not recommend lumbar puncture. Sedation: n/a Pain: n/a Psych: n/a Cardio: Troponins were negative. Pending results for echocardiogram and EKG. Pulm: Hypercapnic respiratory failure and h/o of COPD. Pt extubated on 11/13/17. Currently on bipap. Duoneb 3 ml INH RQ6, Methylpredisolone 40 mg IVP Q12, Spiriva 18 mcg INH RQ24 for COPD. Vent Settings: 31.0 ABG: pCO2 82; pO2 113; HCO3 38.1; pH 7.36 Endo: Blood glucose has ranged between 84 and 131. HbgA1C is pending to assess Pt's nursing home blood glucose control. GI: Pt currently receiving tube feedings. Swallow eval deferred due to poor mental status. : no issues. Echavarria in place. Renal: BUN 25/ Cr 0.5. HCO3 40. I/O: 0 ml/115 ml Heme/Onc: Noted downward trend in platelet count. 136 to 121, to 103 today. H/H: 12.1/37.8 PT: 20.4 PTT: 54 MSK: no issues. ID: WBC of 4.4. Novel bandemia noted. Repeating blood culture to asssess for infection. HIV 1&2 Antibody Screen is negative. f/u AM CBC Prophylaxis: DVT: Heparin SC Q8. SCDs GI: Protonix 40 mg IVP Daily <Sen Ochoa - Last Filed: 11/14/17 17:54> CCU Objective - Vital Signs / Intake & Output Vital Signs (Last 4 hours): Vital Signs Temp Pulse Resp BP Pulse Ox 11/14/17 16:22 89 10 L 129/80 95 11/14/17 16:07 92 H 10 L 123/76 91 L 11/14/17 16:00 97.6 F 92 H 10 L 89 L 11/14/17 15:52 93 H 12 138/85 91 L 11/14/17 15:37 93 H 13 136/82 90 L 11/14/17 15:22 93 H 13 134/78 88 L 11/14/17 15:07 98 H 16 127/75 86 L 11/14/17 15:00 98 H 15 91 L 11/14/17 14:52 94 H 18 112/67 87 L 11/14/17 14:37 101 H 11 L 137/85 95 11/14/17 14:22 91 H 8 L 138/77 96 11/14/17 14:07 89 9 L 140/80 97 11/14/17 14:00 92 H 10 L 97 11/14/17 13:52 92 H 11 L 125/78 97 11/14/17 13:51 91 H 11 L 98 11/14/17 13:37 90 9 L 152/79 H 94 L 11/14/17 13:35 92 H 11/14/17 13:22 89 9 L 143/81 95 Intake and Output (Last 8hrs): Intake & Output 11/14/17 11/14/17 11/14/17 06:59 14:59 22:59 Intake Total 120 0 Output Total 280 235 30 Balance -280 -115 -30 Weight 164 lb 5 oz Intake: Oral 120 0 Output: Urine 280 235 30 Urethral (Echavarria) 280 235 30 Other: # Bowel Movements 1 - Medications Active Medications: Active Medications Generic Name Dose Route Start Last Admin Trade Name Freq PRN Reason Stop Dose Admin Albuterol/Ipratropium 3 ml 11/11/17 20:00 11/14/17 13:14 Duoneb 3 Mg/0.5 Mg (3 Ml) Ud INH 3 ml RQ6 JUANA Administration Heparin Sodium (Porcine) 5,000 units 11/11/17 22:00 11/14/17 15:14 Heparin SC 5,000 units Q8 JUANA Administration Cefepime HCl 1 gm in 50 mls @ 100 mls/hr 11/14/17 18:00 Maxipime Iv 1 Gm Premix IVPB Q12H JUANA Methylprednisolone 40 mg 11/11/17 22:00 11/14/17 09:46 Solu-Medrol IVP 40 mg Q12 JUANA Administration Pantoprazole Sodium 40 mg 11/11/17 17:30 11/14/17 09:46 Protonix Inj IVP 40 mg DAILY JUANA Administration Tiotropium Asher 18 mcg 11/13/17 08:00 11/14/17 08:07 Spiriva INH 18 mcg RQ24 JUANA Administration - Patient Studies Lab Studies: Microbiology Studies 11/11/17 13:54 Blood Culture - Preliminary Blood NO GROWTH AFTER 3 DAYS 11/11/17 14:25 Blood Culture - Preliminary Blood NO GROWTH AFTER 3 DAYS Lab Studies 11/14/17 11/14/17 11/14/17 Range/Units 13:08 08:20 06:20 WBC (4.8-10.8) K/uL RBC (4.40-5.90) Mil/uL Hgb (12.0-18.0) g/dL Hct (35.0-51.0) % MCV (80.0-94.0) fL MCH (27.0-31.0) pg MCHC (33.0-37.0) g/dL RDW (11.5-14.5) % Plt Count (130-400) K/uL MPV (7.2-11.7) fL Neut % (Auto) (50.0-75.0) % Lymph % (Auto) (20.0-40.0) % [place] % (Auto) (0.0-10.0) % Eos % (Auto) (0.0-4.0) % Baso % (Auto) (0.0-2.0) % Neut # (1.8-7.0) K/uL Lymph # (1.0-4.3) K/uL [place] # (0.0-0.8) K/uL Eos # (0.0-0.7) K/uL Baso # (0.0-0.2) K/uL Neutrophils % (Manual) (50-75) % Band Neutrophils % (0-2) % Lymphocytes % (Manual) (20-40) % Monocytes % (Manual) (0-10) % Platelet Estimate (NORMAL) Large Platelets Puncture Site Rra pCO2 82 H* (35-45) mm/Hg pO2 113 H (80-100) mm/Hg HCO3 38.1 H (21-28) mmol/L ABG pH 7.36 (7.35-7.45) ABG Total CO2 48.8 H (22-28) mmol/L ABG O2 Saturation 98.9 H (95-98) % ABG Base Excess 16.9 H (-2.0-3.0) mmol/L ABG Hemoglobin 12.4 (11.7-17.4) g/dL ABG Carboxyhemoglobin 1.9 H (0.5-1.5) % POC ABG HHb (Measured) 1.1 (0.0-5.0) % ABG Methemoglobin 0.8 (0.0-3.0) % Suraj Test Po A-a O2 Difference 6.0 mm/Hg Respiratory Index 0.1 Hgb O2 Saturation 96.2 (95.0-98.0) % Liter Flow 3.5 FiO2 31.0 % Crit Value Called To Dr. solorzano Crit Value Called By Nelia mayfield,developer analyst Crit Value Read Back Y Blood Gas Notified Time 825 Sodium 135 (132-148) mmol/L Potassium 3.9 (3.6-5.2) mmol/L Chloride 94 L (98-107) mmol/L Carbon Dioxide 40 H* (22-30) mmol/L Anion Gap 5 L (10-20) BUN 25 H (9-20) mg/dL Creatinine 0.5 L (0.8-1.5) mg/dL Est GFR ( Amer) > 60 Est GFR (Non-Af Amer) > 60 Random Glucose 103 (75-110) mg/dL Calcium 7.8 L (8.6-10.4) mg/dl Phosphorus 3.0 (2.5-4.5) mg/dL Magnesium 1.9 (1.6-2.3) mg/dL Total Bilirubin 0.8 (0.2-1.3) mg/dL AST 107 H D (17-59) U/L ALT 44 (21-72) U/L Alkaline Phosphatase 52 (38-126) U/L Total Protein 5.8 L (6.3-8.3) g/dL Albumin 2.6 L (3.5-5.0) g/dL Globulin 3.2 (2.2-3.9) gm/dL Albumin/Globulin Ratio 0.8 L (1.0-2.1) HIV 1&2 Antibody Screen Negative (NEGATIVE) 11/14/17 Range/Units 06:20 WBC 4.4 L (4.8-10.8) K/uL RBC 4.25 L (4.40-5.90) Mil/uL Hgb 12.1 (12.0-18.0) g/dL Hct 37.8 (35.0-51.0) % MCV 88.8 (80.0-94.0) fL MCH 28.5 (27.0-31.0) pg MCHC 32.0 L (33.0-37.0) g/dL RDW 17.4 H (11.5-14.5) % Plt Count 103 L (130-400) K/uL MPV 8.3 (7.2-11.7) fL Neut % (Auto) 89.2 H (50.0-75.0) % Lymph % (Auto) 4.6 L (20.0-40.0) % [place] % (Auto) 6.0 (0.0-10.0) % Eos % (Auto) 0.0 (0.0-4.0) % Baso % (Auto) 0.2 (0.0-2.0) % Neut # 3.9 (1.8-7.0) K/uL Lymph # 0.2 L (1.0-4.3) K/uL [place] # 0.3 (0.0-0.8) K/uL Eos # 0.0 (0.0-0.7) K/uL Baso # 0.0 (0.0-0.2) K/uL Neutrophils % (Manual) 69 (50-75) % Band Neutrophils % 19 H* (0-2) % Lymphocytes % (Manual) 6 L (20-40) % Monocytes % (Manual) 6 (0-10) % Platelet Estimate Slightly decreased L (NORMAL) Large Platelets Present Puncture Site pCO2 (35-45) mm/Hg pO2 (80-100) mm/Hg HCO3 (21-28) mmol/L ABG pH (7.35-7.45) ABG Total CO2 (22-28) mmol/L ABG O2 Saturation (95-98) % ABG Base Excess (-2.0-3.0) mmol/L ABG Hemoglobin (11.7-17.4) g/dL ABG Carboxyhemoglobin (0.5-1.5) % POC ABG HHb (Measured) (0.0-5.0) % ABG Methemoglobin (0.0-3.0) % Suraj Test A-a O2 Difference mm/Hg Respiratory Index Hgb O2 Saturation (95.0-98.0) % Liter Flow FiO2 % Crit Value Called To Crit Value Called By Crit Value Read Back Blood Gas Notified Time Sodium (132-148) mmol/L Potassium (3.6-5.2) mmol/L Chloride (98-107) mmol/L Carbon Dioxide (22-30) mmol/L Anion Gap (10-20) BUN (9-20) mg/dL Creatinine (0.8-1.5) mg/dL Est GFR ( Amer) Est GFR (Non-Af Amer) Random Glucose (75-110) mg/dL Calcium (8.6-10.4) mg/dl Phosphorus (2.5-4.5) mg/dL Magnesium (1.6-2.3) mg/dL Total Bilirubin (0.2-1.3) mg/dL AST (17-59) U/L ALT (21-72) U/L Alkaline Phosphatase (38-126) U/L Total Protein (6.3-8.3) g/dL Albumin (3.5-5.0) g/dL Globulin (2.2-3.9) gm/dL Albumin/Globulin Ratio (1.0-2.1) HIV 1&2 Antibody Screen (NEGATIVE) Laboratory Results - last 24 hr 11/14/17 11/14/17 11/14/17 06:20 06:20 08:20 WBC 4.4 L RBC 4.25 L Hgb 12.1 Hct 37.8 MCV 88.8 MCH 28.5 MCHC 32.0 L RDW 17.4 H Plt Count 103 L MPV 8.3 Neut % (Auto) 89.2 H Lymph % (Auto) 4.6 L [place] % (Auto) 6.0 Eos % (Auto) 0.0 Baso % (Auto) 0.2 Neut # 3.9 Lymph # 0.2 L [place] # 0.3 Eos # 0.0 Baso # 0.0 Neutrophils % (Manual) 69 Band Neutrophils % 19 H* Lymphocytes % (Manual) 6 L Monocytes % (Manual) 6 Platelet Estimate Slightly decreased L Large Platelets Present Puncture Site Rra pCO2 82 H* pO2 113 H HCO3 38.1 H ABG pH 7.36 ABG Total CO2 48.8 H ABG O2 Saturation 98.9 H ABG Base Excess 16.9 H ABG Hemoglobin 12.4 ABG Carboxyhemoglobin 1.9 H POC ABG HHb (Measured) 1.1 ABG Methemoglobin 0.8 Suraj Test Po A-a O2 Difference 6.0 Respiratory Index 0.1 Hgb O2 Saturation 96.2 Liter Flow 3.5 FiO2 31.0 Crit Value Called To Dr. solorzano Crit Value Called By Nelia mayfield,developer analyst Crit Value Read Back Y Blood Gas Notified Time 825 Sodium 135 Potassium 3.9 Chloride 94 L Carbon Dioxide 40 H* Anion Gap 5 L BUN 25 H Creatinine 0.5 L Est GFR ( Amer) > 60 Est GFR (Non-Af Amer) > 60 Random Glucose 103 Calcium 7.8 L Phosphorus 3.0 Magnesium 1.9 Total Bilirubin 0.8 AST 107 H D ALT 44 Alkaline Phosphatase 52 Total Protein 5.8 L Albumin 2.6 L Globulin 3.2 Albumin/Globulin Ratio 0.8 L HIV 1&2 Antibody Screen 11/14/17 13:08 WBC RBC Hgb Hct MCV MCH MCHC RDW Plt Count MPV Neut % (Auto) Lymph % (Auto) [place] % (Auto) Eos % (Auto) Baso % (Auto) Neut # Lymph # [place] # Eos # Baso # Neutrophils % (Manual) Band Neutrophils % Lymphocytes % (Manual) Monocytes % (Manual) Platelet Estimate Large Platelets Puncture Site pCO2 pO2 HCO3 ABG pH ABG Total CO2 ABG O2 Saturation ABG Base Excess ABG Hemoglobin ABG Carboxyhemoglobin POC ABG HHb (Measured) ABG Methemoglobin Suraj Test A-a O2 Difference Respiratory Index Hgb O2 Saturation Liter Flow FiO2 Crit Value Called To Crit Value Called By Crit Value Read Back Blood Gas Notified Time Sodium Potassium Chloride Carbon Dioxide Anion Gap BUN Creatinine Est GFR ( Amer) Est GFR (Non-Af Amer) Random Glucose Calcium Phosphorus Magnesium Total Bilirubin AST ALT Alkaline Phosphatase Total Protein Albumin Globulin Albumin/Globulin Ratio HIV 1&2 Antibody Screen Negative Critical Care Progress Note - Nutrition Nutrition: Nutrition Category Date Time Status Heart Healthy Diet [DIET] Diets 11/13/17 Breakfast Active Assessment/Plan (1) Syncope and collapse Current Visit: Yes Status: Acute Attending/Attestation - Attestation I have personally seen and examined this patient.: Yes I have fully participated in the care of the patient.: Yes I have reviewed all pertinent clinical information: Yes Notes (Text): 11/14/17 17:17 I have seen and examined the patient. Medical records, lab studies, and imaging were reviewed by me and a management plan was formulated on multidisciplinary rounds with resident Dr. Britton. I agree with their documented assessment and plan. Patient's mental status waxes and wanes, retaining CO2 and on BIPAP. Patient has severe protein calorie malnutrition, and is not improving. Will have to discuss goals of care with family. Critical Care Time 35 minutes. Multi-disciplinary rounds were performed with house staff, nursing, speech therapy, respiratory therapy, pharmacy and nutrition with integrated input from the primary team/attending and other consulting services. The documented time is cumulative and includes review of patient data/exams/labs/chart review and examination of the patient on rounds and throughout the day; time is exclusive of any procedures or teaching time. 11/14/17 17:18
--- NOTE | 2017-11-14 16:18 | CP.PCM.PN ---
Subjective - Date & Time of Evaluation Date of Evaluation: 11/14/17 Time of Evaluation: 16:00 - Subjective Subjective: patient has no current chest pain or dyspnea. Objective - Vital Signs/Intake and Output Vital Signs (last 24 hours): Temp Pulse Resp BP Pulse Ox 97.5 F L 93 H 13 134/78 88 L 11/14/17 12:00 11/14/17 15:22 11/14/17 15:22 11/14/17 15:22 11/14/17 15:22 Intake and Output: 11/14/17 11/14/17 06:59 18:59 Intake Total 480 120 Output Total 420 265 Balance 60 -145 - Medications Medications: Current Medications Albuterol/Ipratropium (Duoneb 3 Mg/0.5 Mg (3 Ml) Ud) 3 ml INH RQ6 [facility] Last Admin: 11/14/17 13:14 Dose: 3 ml Heparin Sodium (Porcine) (Heparin) 5,000 units SC Q8 [facility] Last Admin: 11/14/17 15:14 Dose: 5,000 units Methylprednisolone (Solu-Medrol) 40 mg IVP Q12 [facility] Last Admin: 11/14/17 09:46 Dose: 40 mg Pantoprazole Sodium (Protonix Inj) 40 mg IVP DAILY [facility] Last Admin: 11/14/17 09:46 Dose: 40 mg Tiotropium [place] (Spiriva) 18 mcg INH RQ24 [facility] Last Admin: 11/14/17 08:07 Dose: 18 mcg - Labs Labs: 11/14/17 06:20 11/14/17 06:20 PT 20.4 SECONDS (9.7-12.2) H 11/11/17 14:13 INR 1.8 11/11/17 14:13 APTT 54 SECONDS (21-34) H 11/11/17 14:13 - Constitutional Appears: Non-toxic - Head Exam Head Exam: NORMAL INSPECTION - Eye Exam Eye Exam: Normal appearance - ENT Exam ENT Exam: Mucous Membranes Moist - Neck Exam Neck Exam: Full ROM - Respiratory Exam Respiratory Exam: Rhonchi - Cardiovascular Exam Cardiovascular Exam: REGULAR RHYTHM - GI/Abdominal Exam GI & Abdominal Exam: Normal Bowel Sounds - Rectal Exam Rectal Exam: Deferred - Extremities Exam Extremities Exam: Normal Inspection - Back Exam Back Exam: NORMAL INSPECTION - Neurological Exam Neurological Exam: Alert - Psychiatric Exam Psychiatric exam: Normal Affect - Skin Skin Exam: Normal Color Assessment and Plan (1) Acute hypercapnic respiratory failure Assessment & Plan: extubated. last echocardiogram revealed normal left ventricular function. will need repeat echocardiogram Status: Acute
--- NOTE | 2017-11-14 16:40 | CP.PCM.CON ---
History of Present Illness - History of Present Illness History of Present Illness: 72 y/o male hx respiratory failure November 2016 presents to the ED brought by ambulance found unconscious on the floor for two days. There was no family presents. The patient denies known new injuries. admitted with possible sepsis , resp failure r/o pneumonia found down at home hypothermic awake responsive coinfused denies chesat zbigniew or headache appears cachectic - Medical History PMH: Asthma, CHF, COPD, HTN - [facility] Procedures ASSISTANCE WITH RESPIRATORY VENTILATION, <24 HRS, CPAP (11/24/16) INSERT INFUSION DEV IN R INT JUGULAR VEIN, PERC (11/24/16) INSERTION OF ENDOTRACHEAL AIRWAY INTO TRACHEA, VIA OPENING (11/24/16) RESPIRATORY VENTILATION, LESS THAN 24 CONSECUTIVE HOURS (11/24/16) Review of Systems - Review of Systems Systems not reviewed;Unavailable: Altered Mental Status - Constitutional Constitutional: As Per HPI - EENT Eyes: absent: As Per HPI, Blind Spots, Blurred Vision, Change in Vision, Decreased Night Vision, Diplopia, Discharge, Dry Eye, Exophthalmos, Floaters, Irritation, Itchy Eyes, Loss of Peripheral Vision, Pain, Photophobia, Requires Corrective Lenses, Sees Flashes, Spots in Vision, Tunnel Vision, Other Visual Disturbances, Loss of Vision, Other Ears: absent: As Per HPI, Decreased Hearing, Ear Discharge, Ear Pain, Tinnitus, Abnormal Hearing, Disequilibrium, Dizziness, Other Nose/Mouth/Throat: absent: As Per HPI, Epistaxis, Nasal Congestion, Nasal Discharge, Nasal Obstruction, Nasal Trauma, Nose Pain, Post Nasal Drip, Sinus Pain, Sinus Pressure, Bleeding Gums, Change in Voice, Dental Pain, Dry Mouth, Dysphagia, Halitosis, Hoarsness, Lip Swelling, Mouth Lesions, Mouth Pain, Odynophagia, Sore Throat, Throat Swelling, Tongue Swelling, Facial Pain, Neck Pain, Neck Mass, Other - Cardiovascular Cardiovascular: As Per HPI - Respiratory Respiratory: As Per HPI, Dyspnea. absent: Hemoptysis - Gastrointestinal Gastrointestinal: absent: As Per HPI, Abdominal Pain, Belching, Bloating, Change in Bowel Habits, Change in Stool Character, Coffee Ground Emesis, Constipation, Cramping, Diarrhea, Dyspepsia, Dysphagia, Early Satiety, Excessive Flatus, Fecal Incontinence, Heartburn, Hematemesis, Hematochezia, Loose Stools, Melena, Nausea, Odynophagia, Temesmus, Vomiting, Other - Genitourinary Genitourinary: absent: As Per HPI, Change in Urinary Stream, Difficulty Urinating, Dysuria, Flank Pain, Hematuria, Pyuria, Nocturia, Urinary Incontinence, Urinary Frequency, Urinary Hesitance, Urinary Urgency, Voiding Freq/Small Amts, Freq UTI, Hx Renal/Bladder Calculi, Hx /Renal Surgery, Bladder Distension, Other - Musculoskeletal Musculoskeletal: absent: As Per HPI, Abnormal Gait, Arthralgias, Atrophy, Back Pain, Deformity, Joint Swelling, Limited Range of Motion, Loss of Height, Muscle Cramps, Muscle Weakness, Myalgias, Neck Pain, Numbness, Radiating Pain into Limb, Stiffness, Tingling, Other - Integumentary Integumentary: absent: As Per HPI, Acne, Alopecia, Bleeding Lesions, Change in Hair, Change in Nails, Change in Pigmentation, Changing Lesions, Dry Skin, Erythema, Furuncle, Hirsutism, Lesions, New Lesions, Non-Healing Lesions, Photosensitivity, Pruritus, Rash, Skin Pain, Skin Ulcer, Sores, Striae, Swelling , Unusual Bruising, Wounds, Jaundice, Other - Neurological Neurological: absent: As Per HPI, Abnormal Gait, Abnormal Hearing, Abnormal Movements, Abnormal Speech, Behavioral Changes, Burning Sensations, Confusion, Convulsions, Disequilibrium, Dizziness, Numbness, Focal Weakness, Frequent Falls , Headaches, Lack of Coordination, Loss of Vision, Memory Loss, Paresthesias, Radicular Pain, Restless Legs, Sensory Deficit, Syncope, Tingling, Tremor, Vertigo, Weakness, Other Visual Disturbances, Other - Psychiatric Psychiatric: absent: As Per HPI, Abnormal Sleep Pattern, Anhedonia, Anxiety, Auditory Hallucinations, Behavioral Changes, Change in Appetite, Change in Libido, Confusion, Depression, Difficulty Concentrating, Hallucinations, Homicidal Ideation, Hopelessness, Irritability, Memory Loss, Mood Swings, Panic Attacks, Paranoia, Suicidal Ideation, Visual Hallucinations, Tactile Hallucinations, Other - Endocrine Endocrine: absent: As Per HPI, Change in Body Appearance, Change in Libido, Cold Intolorance, Deepening of Voice, Excessive Sweating, Fatigue, Flushing, Heat Intolorance, Increase in Ring/Shoe/Hat Size, Palpitations, Polydipsia, Polyphagia, Polyuria, Other - Hematologic/Lymphatic Hematologic: absent: As Per HPI, Easy Bleeding, Easy Bruising, Lymphadenopathy, Other Past Patient History - Past Medical History & Family History Past Medical History?: Yes - Past Social History Smoking Status: Former Smoker - CARDIAC Hx Congestive Heart Failure: Yes Hx Hypertension: Yes - PULMONARY Hx Asthma: Yes Hx Chronic Obstructive Pulmonary Disease (COPD): Yes - NEUROLOGICAL Hx Neurological Disorder: Yes Hx Dizziness: Yes - ENDOCRINE/METABOLIC Hx Diabetes Mellitus Type 2: Yes - MUSCULOSKELETAL/RHEUMATOLOGICAL Hx Falls: Yes - GASTROINTESTINAL Hx Gastrointestinal Disorders: No - GENITOURINARY/GYNECOLOGICAL Hx Genitourinary Disorders: No - PSYCHIATRIC Hx Substance Use: No - SURGICAL HISTORY Hx Surgeries: No - ANESTHESIA Hx Anesthesia: No Meds Allergies/Adverse Reactions: Allergies Allergy/AdvReac Type Severity Reaction Status Date / Time No Known Allergies Allergy Verified 11/11/17 13:45 - Medications Medications: Current Medications Albuterol/Ipratropium (Duoneb 3 Mg/0.5 Mg (3 Ml) Ud) 3 ml INH RQ6 COUNT INCLUDES THE [facility] Last Admin: 11/14/17 13:14 Dose: 3 ml Heparin Sodium (Porcine) (Heparin) 5,000 units SC Q8 COUNT INCLUDES THE [facility] Last Admin: 11/14/17 15:14 Dose: 5,000 units Methylprednisolone (Solu-Medrol) 40 mg IVP Q12 COUNT INCLUDES THE [facility] Last Admin: 11/14/17 09:46 Dose: 40 mg Pantoprazole Sodium (Protonix Inj) 40 mg IVP DAILY COUNT INCLUDES THE [facility] Last Admin: 11/14/17 09:46 Dose: 40 mg Tiotropium [place] (Spiriva) 18 mcg INH RQ24 COUNT INCLUDES THE [facility] Last Admin: 11/14/17 08:07 Dose: 18 mcg Physical Exam - Constitutional Appears: No Acute Distress, Confused - Head Exam Head Exam: ATRAUMATIC, NORMAL INSPECTION, NORMOCEPHALIC - Eye Exam Eye Exam: EOMI, Normal appearance - ENT Exam ENT Exam: Mucous Membranes Moist, Normal External Ear Exam - Neck Exam Neck exam: Positive for: Normal Inspection. Negative for: Lymphadenopathy - Respiratory Exam Respiratory Exam: Decreased Breath Sounds, Prolonged Expiratory Phase, Rales, Rhonchi. absent: Chest Wall Tenderness - Cardiovascular Exam Cardiovascular Exam: REGULAR RHYTHM, +S1, +S2 - GI/Abdominal Exam GI & Abdominal Exam: Diminished Bowel Sounds, Soft. absent: Tenderness - Rectal Exam Rectal Exam: Deferred - Exam Exam: NORMAL INSPECTION - Extremities Exam Extremities exam: Negative for: calf tenderness, tenderness, pedal pulses present - Back Exam Back exam: absent: CVA tenderness (L), CVA tenderness (R), rash noted, tenderness, vertebral tenderness - Neurological Exam Neurological exam: Alert, Altered, CN II-XII Intact - Psychiatric Exam Psychiatric exam: Depressed - Skin Skin Exam: Dry Results - Vital Signs Recent Vital Signs: Last Vital Signs Temp 97.6 F 11/14/17 16:00 Pulse 89 11/14/17 16:22 Resp 10 L 11/14/17 16:22 BP 129/80 11/14/17 16:22 Pulse Ox 95 11/14/17 16:22 - Labs Result Diagrams: 11/14/17 06:20 11/14/17 06:20 Labs: Laboratory Results - last 24 hr 11/14/17 11/14/17 11/14/17 06:20 06:20 08:20 WBC 4.4 L RBC 4.25 L Hgb 12.1 Hct 37.8 MCV 88.8 MCH 28.5 MCHC 32.0 L RDW 17.4 H Plt Count 103 L MPV 8.3 Neut % (Auto) 89.2 H Lymph % (Auto) 4.6 L [place]ay % (Auto) 6.0 Eos % (Auto) 0.0 Baso % (Auto) 0.2 Neut # 3.9 Lymph # 0.2 L [place]ay # 0.3 Eos # 0.0 Baso # 0.0 Neutrophils % (Manual) 69 Band Neutrophils % 19 H* Lymphocytes % (Manual) 6 L Monocytes % (Manual) 6 Platelet Estimate Slightly decreased L Large Platelets Present Puncture Site Rra pCO2 82 H* pO2 113 H HCO3 38.1 H ABG pH 7.36 ABG Total CO2 48.8 H ABG O2 Saturation 98.9 H ABG Base Excess 16.9 H ABG Hemoglobin 12.4 ABG Carboxyhemoglobin 1.9 H POC ABG HHb (Measured) 1.1 ABG Methemoglobin 0.8 Suraj Test Po A-a O2 Difference 6.0 Respiratory Index 0.1 Hgb O2 Saturation 96.2 Liter Flow 3.5 FiO2 31.0 Crit Value Called To Dr. solorzano Crit Value Called By Nelia mayfield,plant operator/shift supervisor Crit Value Read Back Y Blood Gas Notified Time 825 Sodium 135 Potassium 3.9 Chloride 94 L Carbon Dioxide 40 H* Anion Gap 5 L BUN 25 H Creatinine 0.5 L Est GFR ( Amer) > 60 Est GFR (Non-Af Amer) > 60 Random Glucose 103 Calcium 7.8 L Phosphorus 3.0 Magnesium 1.9 Total Bilirubin 0.8 AST 107 H D ALT 44 Alkaline Phosphatase 52 Total Protein 5.8 L Albumin 2.6 L Globulin 3.2 Albumin/Globulin Ratio 0.8 L HIV 1&2 Antibody Screen 11/14/17 13:08 WBC RBC Hgb Hct MCV MCH MCHC RDW Plt Count MPV Neut % (Auto) Lymph % (Auto) Calloway % (Auto) Eos % (Auto) Baso % (Auto) Neut # Lymph # C[place]ay # Eos # Baso # Neutrophils % (Manual) Band Neutrophils % Lymphocytes % (Manual) Monocytes % (Manual) Platelet Estimate Large Platelets Puncture Site pCO2 pO2 HCO3 ABG pH ABG Total CO2 ABG O2 Saturation ABG Base Excess ABG Hemoglobin ABG Carboxyhemoglobin POC ABG HHb (Measured) ABG Methemoglobin Suraj Test A-a O2 Difference Respiratory Index Hgb O2 Saturation Liter Flow FiO2 Crit Value Called To Crit Value Called By Crit Value Read Back Blood Gas Notified Time Sodium Potassium Chloride Carbon Dioxide Anion Gap BUN Creatinine Est GFR ( Amer) Est GFR (Non-Af Amer) Random Glucose Calcium Phosphorus Magnesium Total Bilirubin AST ALT Alkaline Phosphatase Total Protein Albumin Globulin Albumin/Globulin Ratio HIV 1&2 Antibody Screen Negative Assessment & Plan (1) Acute hypercapnic respiratory failure Status: Acute (2) Hypothermia Status: Acute (3) Syncope and collapse Status: Acute (4) Toxic metabolic encephalopathy Status: Acute Priority: High (5) CHF (congestive heart failure) Status: Acute (6) COPD exacerbation Status: Acute (7) Chr obstructive pulmonary disease w/ acute lower respiratory infxn Status: Acute - Assessment and Plan (Free Text) Assessment: resp failure- r/o sepsis iv rx in progress
[2017-11-14] MEDS: Cefepime IV 1 gm in Dextrose 1 GM/50 ML BAG IVPB SCH (17:29)
[2017-11-15] MEDS: Albuterol-Ipratrop 3 mg / 0.5 (3 ml) UD INH SCH ×4 (02:47→20:06)
[2017-11-15] MEDS: Cefepime IV 1 gm in Dextrose 1 GM/50 ML BAG IVPB SCH ×2 (06:07→17:26)
[2017-11-15 06:23] LABS: HEMOGLOBIN 12.2 g/dL (12.0-18.0); LYMPH # 0.2 K/uL (1.0-4.3); LYMPH % 4.2 % (20.0-40.0); MEAN CELL VOLUME 89.9 fL (80.0-94.0); MEAN CORPUSCULAR HEMOGLOBIN 28.3 pg (27.0-31.0); MEAN CORPUSCULAR HGB CONC 31.5 g/dL (33.0-37.0); MEAN PLATELET VOLUME 8.8 fL (7.2-11.7); MONO # 0.2 K/uL (0.0-0.8); MONO % 3.7 % (0.0-10.0); NEUT # 5.3 K/uL (1.8-7.0); NEUT % 92.1 % (50.0-75.0); NRBC % 0.2 % (0.0-2.0); PLATELET COUNT 106 K/uL (130-400); RED CELL DISTRIBUTION WIDTH 17.5 % (11.5-14.5); WHITE BLOOD COUNT 5.8 K/uL (4.8-10.8)
[2017-11-15 06:43] LABS: ALB/GLOB RATIO 0.8 (1.0-2.1); ALBUMIN 2.7 g/dL (3.5-5.0); ALT/SGPT 43 U/L (21-72); AST/SGOT 73 U/L (17-59); BLOOD UREA NITROGEN 23 mg/dL (9-20); CALCIUM 8.1 mg/dl (8.6-10.4); GFR AFRICAN-AMERICAN > 60; GFR NON-AFRICAN AMERICAN > 60; MAGNESIUM 2.1 mg/dL (1.6-2.3)
[2017-11-15 08:36] LABS: ANISOCYTOSIS SLIGHT; BANDS 49 % (0-2); LYMPHOCYTE 3 % (20-40); MONOCYTE 3 % (0-10); NEUTROPHIL 45 % (50-75); PLATELET ESTIMATE DECREASED (NORMAL); POIKILOCYTOSIS SLIGHT; TOTAL CELLS COUNTED 100
[2017-11-15] MEDS: MethylPREDNISolone 40 mg Vial IVP SCH ×3 (10:24→17:27)
[2017-11-15 10:25] LABS: ABG ALLEN TEST PO; ARTERIAL BLOOD GAS HCO3 36.7 mmol/L (21-28); ARTERIAL BLOOD GAS O2 SAT 93.1 % (95-98); ARTERIAL BLOOD GAS PCO2 79 mm/Hg (35-45); ARTERIAL BLOOD GAS PH 7.36 (7.35-7.45); ARTERIAL BLOOD GAS PO2 59 mm/Hg (80-100)
[2017-11-15] MEDS: Dextrose 5%/0.45% NS 1,000 ML IV SCH (11:49)
[2017-11-15] MEDS: Tiotropium 18 mcg Cap For Inhalation INH SCH (13:08)
--- NOTE | 2017-11-15 14:02 | CP.CCUPN ---
<Sarah Britton - Last Filed: 11/15/17 13:54> CCU Subjective - Physician Review Subjective (Free Text): 11/15/17 13:54 At present Pt is arousable, and more communicative today than previously. AAOx3. Denies any complaints. CCU Objective - Vital Signs / Intake & Output Vital Signs (Last 4 hours): Vital Signs Temp Pulse Resp BP Pulse Ox 11/15/17 13:22 85 10 L 140/92 H 11/15/17 13:07 81 10 L 141/92 H 11/15/17 13:00 83 10 L 11/15/17 12:52 85 10 L 123/80 11/15/17 12:37 83 9 L 123/79 11/15/17 12:22 87 11 L 136/86 11/15/17 12:07 87 10 L 120/93 H 92 L 11/15/17 12:00 97.3 F L 82 13 93 L 11/15/17 11:52 85 11 L 127/87 93 L 11/15/17 11:39 84 11 L 112/72 11/15/17 11:22 83 11 L 113/79 94 L 11/15/17 11:07 87 10 L 115/77 89 L 11/15/17 11:00 87 13 91 L 11/15/17 10:52 86 18 119/82 88 L 11/15/17 10:37 85 10 L 120/74 81 L 11/15/17 10:22 83 10 L 116/74 89 L 11/15/17 10:08 98 H 12 155/114 H 73 L 11/15/17 10:00 94 H 9 L 90 L Intake and Output (Last 8hrs): Intake & Output 11/14/17 11/15/17 11/15/17 22:59 06:59 14:59 Intake Total 50 0 200 Output Total 280 215 160 Balance -230 -215 40 Weight 141 lb Intake: Intake, IV Amount 50 80 Right Forearm 50 80 Oral 0 0 120 Output: Urine 280 215 160 Urethral (Ech[place]arria) 280 215 160 - Physical Exam Head: Positive for: Atraumatic, Normocephalic Pupils: Positive for: PERRL Extroacular Muscles: Positive for: EOMI Conjunctiva: Positive for: Normal Mouth: Positive for: Moist Mucous Membranes Respiratory/Chest: Positive for: Good Air Exchange, Rales, Rhonchi. Negative for: Respiratory Distress Cardiovascular: Positive for: Regular Rate and Rhythm Abdomen: Negative for: Tenderness, Distention Upper Extremity: Positive for: Normal Inspection Lower Extremity: Positive for: Normal Inspection Neurological: Positive for: GCS=15 Psychiatric: Positive for: Alert, Oriented x 3 - Medications Active Medications: Active Medications Generic Name Dose Route Start Last Admin Trade Name Freq PRN Reason Stop Dose Admin Albuterol/Ipratropium 3 ml 11/11/17 20:00 11/15/17 13:07 Duoneb 3 Mg/0.5 Mg (3 Ml) Ud INH 3 ml RQ6 JUANA Administration Heparin Sodium (Porcine) 5,000 units 11/15/17 06:00 11/15/17 06:32 Heparin SC 5,000 units Q8 JUANA Administration Cefepime HCl 1 gm in 50 mls @ 100 mls/hr 11/14/17 18:00 11/15/17 06:07 Maxipime Iv 1 Gm Premix IVPB 100 mls/hr Q12H JUANA Administration Dextrose/Sodium Chloride 1,000 mls @ 40 mls/hr 11/15/17 11:15 11/15/17 11:49 Dextrose 5%/0.45% Ns 1000 Ml IV 40 mls/hr .Q24H JUANA Administration Methylprednisolone 40 mg 11/15/17 12:00 11/15/17 11:50 Solu-Medrol IVP 40 mg Q6 JUANA Administration Pantoprazole Sodium 40 mg 11/11/17 17:30 11/15/17 10:24 Protonix Inj IVP 40 mg DAILY JUANA Administration Tiotropium [place] 18 mcg 11/13/17 08:00 11/15/17 13:08 Spiriva INH 18 mcg RQ24 JUANA Administration - Patient Studies Lab Studies: Microbiology Studies 11/14/17 13:00 Blood Culture - Preliminary Blood NO GROWTH AFTER 24 HOURS 11/14/17 12:30 Blood Culture - Preliminary Blood NO GROWTH AFTER 24 HOURS 11/11/17 13:54 Blood Culture - Preliminary Blood NO GROWTH AFTER 3 DAYS 11/11/17 14:25 Blood Culture - Preliminary Blood NO GROWTH AFTER 3 DAYS Lab Studies 11/15/17 11/15/17 11/15/17 Range/Units 11:47 10:21 09:12 WBC (4.8-10.8) K/uL RBC (4.40-5.90) Mil/uL Hgb (12.0-18.0) g/dL Hct (35.0-51.0) % MCV (80.0-94.0) fL MCH (27.0-31.0) pg MCHC (33.0-37.0) g/dL RDW (11.5-14.5) % Plt Count (130-400) K/uL MPV (7.2-11.7) fL Neut % (Auto) (50.0-75.0) % Lymph % (Auto) (20.0-40.0) % [place] % (Auto) (0.0-10.0) % Eos % (Auto) (0.0-4.0) % Baso % (Auto) (0.0-2.0) % Neut # (1.8-7.0) K/uL Lymph # (1.0-4.3) K/uL [place] # (0.0-0.8) K/uL Eos # (0.0-0.7) K/uL Baso # (0.0-0.2) K/uL Neutrophils % (Manual) (50-75) % Band Neutrophils % (0-2) % Lymphocytes % (Manual) (20-40) % Monocytes % (Manual) (0-10) % Platelet Estimate (NORMAL) Poikilocytosis (manual Anisocytosis (manual) Puncture Site Rra pCO2 79 H* (35-45) mm/Hg pO2 59 L (80-100) mm/Hg HCO3 36.7 H (21-28) mmol/L ABG pH 7.36 (7.35-7.45) ABG Total CO2 47.0 H (22-28) mmol/L ABG O2 Saturation 93.1 L (95-98) % ABG Base Excess 15.3 H (-2.0-3.0) mmol/L ABG Hemoglobin 13.0 (11.7-17.4) g/dL ABG Carboxyhemoglobin 2.3 H (0.5-1.5) % POC ABG HHb (Measured) 6.7 H (0.0-5.0) % ABG Methemoglobin 1.1 (0.0-3.0) % Suraj Test Po A-a O2 Difference 21.0 mm/Hg Respiratory Index 0.4 Hgb O2 Saturation 89.9 L (95.0-98.0) % Liter Flow 1.0 FiO2 25.0 % Crit Value Called To Dr.aman [place] Crit Value Called By Wilfredo choi,rt Crit Value Read Back Y Blood Gas Notified Time 1000 Sodium (132-148) mmol/L Potassium (3.6-5.2) mmol/L Chloride (98-107) mmol/L Carbon Dioxide (22-30) mmol/L Anion Gap (10-20) BUN (9-20) mg/dL Creatinine (0.8-1.5) mg/dL Est GFR ( Amer) Est GFR (Non-Af Amer) POC Glucose (mg/dL) 74 (65-110) mg/dL Random Glucose (75-110) mg/dL Hemoglobin A1c 6.1 (4.2-6.5) % Calcium (8.6-10.4) mg/dl Phosphorus (2.5-4.5) mg/dL Magnesium (1.6-2.3) mg/dL Total Bilirubin (0.2-1.3) mg/dL AST (17-59) U/L ALT (21-72) U/L Alkaline Phosphatase (38-126) U/L Ammonia (9-33) umol/L Total Protein (6.3-8.3) g/dL Albumin (3.5-5.0) g/dL Globulin (2.2-3.9) gm/dL Albumin/Globulin Ratio (1.0-2.1) Prostate Specific Ag (0.00-4.0) ng/mL Procalcitonin (0.19-0.49) NG/ML HIV 1&2 Antibody Screen (NEGATIVE) 11/15/17 11/15/17 11/15/17 Range/Units 06:17 06:15 04:00 WBC 5.8 (4.8-10.8) K/uL RBC 4.30 L (4.40-5.90) Mil/uL Hgb 12.2 (12.0-18.0) g/dL Hct 38.7 (35.0-51.0) % MCV 89.9 (80.0-94.0) fL MCH 28.3 (27.0-31.0) pg MCHC 31.5 L (33.0-37.0) g/dL RDW 17.5 H (11.5-14.5) % Plt Count 106 L (130-400) K/uL MPV 8.8 (7.2-11.7) fL Neut % (Auto) 92.1 H (50.0-75.0) % Lymph % (Auto) 4.2 L (20.0-40.0) % [place] % (Auto) 3.7 (0.0-10.0) % Eos % (Auto) 0.0 (0.0-4.0) % Baso % (Auto) 0.0 (0.0-2.0) % Neut # 5.3 (1.8-7.0) K/uL Lymph # 0.2 L (1.0-4.3) K/uL [place] # 0.2 (0.0-0.8) K/uL Eos # 0.0 (0.0-0.7) K/uL Baso # 0.0 (0.0-0.2) K/uL Neutrophils % (Manual) 45 L (50-75) % Band Neutrophils % 49 H* (0-2) % Lymphocytes % (Manual) 3 L (20-40) % Monocytes % (Manual) 3 (0-10) % Platelet Estimate Decreased L (NORMAL) Poikilocytosis (manual Slight Anisocytosis (manual) Slight Puncture Site pCO2 (35-45) mm/Hg pO2 (80-100) mm/Hg HCO3 (21-28) mmol/L ABG pH (7.35-7.45) ABG Total CO2 (22-28) mmol/L ABG O2 Saturation (95-98) % ABG Base Excess (-2.0-3.0) mmol/L ABG Hemoglobin (11.7-17.4) g/dL ABG Carboxyhemoglobin (0.5-1.5) % POC ABG HHb (Measured) (0.0-5.0) % ABG Methemoglobin (0.0-3.0) % Suraj Test A-a O2 Difference mm/Hg Respiratory Index Hgb O2 Saturation (95.0-98.0) % Liter Flow FiO2 % Crit Value Called To Crit Value Called By Crit Value Read Back Blood Gas Notified Time Sodium 139 (132-148) mmol/L Potassium 3.9 (3.6-5.2) mmol/L Chloride 91 L (98-107) mmol/L Carbon Dioxide 45 H* (22-30) mmol/L Anion Gap 7 L (10-20) BUN 23 H (9-20) mg/dL Creatinine 0.5 L (0.8-1.5) mg/dL Est GFR ( Amer) > 60 Est GFR (Non-Af Amer) > 60 POC Glucose (mg/dL) (65-110) mg/dL Random Glucose 82 (75-110) mg/dL Hemoglobin A1c (4.2-6.5) % Calcium 8.1 L (8.6-10.4) mg/dl Phosphorus 2.9 (2.5-4.5) mg/dL Magnesium 2.1 (1.6-2.3) mg/dL Total Bilirubin 0.9 (0.2-1.3) mg/dL AST 73 H D (17-59) U/L ALT 43 (21-72) U/L Alkaline Phosphatase 52 (38-126) U/L Ammonia 23 (9-33) umol/L Total Protein 6.1 L (6.3-8.3) g/dL Albumin 2.7 L (3.5-5.0) g/dL Globulin 3.4 (2.2-3.9) gm/dL Albumin/Globulin Ratio 0.8 L (1.0-2.1) Prostate Specific Ag 5.87 H (0.00-4.0) ng/mL Procalcitonin (0.19-0.49) NG/ML HIV 1&2 Antibody Screen (NEGATIVE) 11/14/17 11/14/17 Range/Units 17:47 13:08 WBC (4.8-10.8) K/uL RBC (4.40-5.90) Mil/uL Hgb (12.0-18.0) g/dL Hct (35.0-51.0) % MCV (80.0-94.0) fL MCH (27.0-31.0) pg MCHC (33.0-37.0) g/dL RDW (11.5-14.5) % Plt Count (130-400) K/uL MPV (7.2-11.7) fL Neut % (Auto) (50.0-75.0) % Lymph % (Auto) (20.0-40.0) % [place] % (Auto) (0.0-10.0) % Eos % (Auto) (0.0-4.0) % Baso % (Auto) (0.0-2.0) % Neut # (1.8-7.0) K/uL Lymph # (1.0-4.3) K/uL [place] # (0.0-0.8) K/uL Eos # (0.0-0.7) K/uL Baso # (0.0-0.2) K/uL Neutrophils % (Manual) (50-75) % Band Neutrophils % (0-2) % Lymphocytes % (Manual) (20-40) % Monocytes % (Manual) (0-10) % Platelet Estimate (NORMAL) Poikilocytosis (manual Anisocytosis (manual) Puncture Site pCO2 (35-45) mm/Hg pO2 (80-100) mm/Hg HCO3 (21-28) mmol/L ABG pH (7.35-7.45) ABG Total CO2 (22-28) mmol/L ABG O2 Saturation (95-98) % ABG Base Excess (-2.0-3.0) mmol/L ABG Hemoglobin (11.7-17.4) g/dL ABG Carboxyhemoglobin (0.5-1.5) % POC ABG HHb (Measured) (0.0-5.0) % ABG Methemoglobin (0.0-3.0) % Suraj Test A-a O2 Difference mm/Hg Respiratory Index Hgb O2 Saturation (95.0-98.0) % Liter Flow FiO2 % Crit Value Called To Crit Value Called By Crit Value Read Back Blood Gas Notified Time Sodium (132-148) mmol/L Potassium (3.6-5.2) mmol/L Chloride (98-107) mmol/L Carbon Dioxide (22-30) mmol/L Anion Gap (10-20) BUN (9-20) mg/dL Creatinine (0.8-1.5) mg/dL Est GFR ( Amer) Est GFR (Non-Af Amer) POC Glucose (mg/dL) (65-110) mg/dL Random Glucose (75-110) mg/dL Hemoglobin A1c (4.2-6.5) % Calcium (8.6-10.4) mg/dl Phosphorus (2.5-4.5) mg/dL Magnesium (1.6-2.3) mg/dL Total Bilirubin (0.2-1.3) mg/dL AST (17-59) U/L ALT (21-72) U/L Alkaline Phosphatase (38-126) U/L Ammonia (9-33) umol/L Total Protein (6.3-8.3) g/dL Albumin (3.5-5.0) g/dL Globulin (2.2-3.9) gm/dL Albumin/Globulin Ratio (1.0-2.1) Prostate Specific Ag (0.00-4.0) ng/mL Procalcitonin 0.20 (0.19-0.49) NG/ML HIV 1&2 Antibody Screen Negative (NEGATIVE) Laboratory Results - last 24 hr 11/14/17 11/14/17 11/15/17 13:08 17:47 04:00 WBC RBC Hgb Hct MCV MCH MCHC RDW Plt Count MPV Neut % (Auto) Lymph % (Auto) [place] % (Auto) Eos % (Auto) Baso % (Auto) Neut # Lymph # [place] # Eos # Baso # Neutrophils % (Manual) Band Neutrophils % Lymphocytes % (Manual) Monocytes % (Manual) Platelet Estimate Poikilocytosis (manual Anisocytosis (manual) Puncture Site pCO2 pO2 HCO3 ABG pH ABG Total CO2 ABG O2 Saturation ABG Base Excess ABG Hemoglobin ABG Carboxyhemoglobin POC ABG HHb (Measured) ABG Methemoglobin Suraj Test A-a O2 Difference Respiratory Index Hgb O2 Saturation Liter Flow FiO2 Crit Value Called To Crit Value Called By Crit Value Read Back Blood Gas Notified Time Sodium Potassium Chloride Carbon Dioxide Anion Gap BUN Creatinine Est GFR ( Amer) Est GFR (Non-Af Amer) POC Glucose (mg/dL) Random Glucose Hemoglobin A1c Calcium Phosphorus Magnesium Total Bilirubin AST ALT Alkaline Phosphatase Ammonia 23 Total Protein Albumin Globulin Albumin/Globulin Ratio Prostate Specific Ag Procalcitonin 0.20 HIV 1&2 Antibody Screen Negative 11/15/17 11/15/17 11/15/17 06:15 06:17 09:12 WBC 5.8 RBC 4.30 L Hgb 12.2 Hct 38.7 MCV 89.9 MCH 28.3 MCHC 31.5 L RDW 17.5 H Plt Count 106 L MPV 8.8 Neut % (Auto) 92.1 H Lymph % (Auto) 4.2 L [place] % (Auto) 3.7 Eos % (Auto) 0.0 Baso % (Auto) 0.0 Neut # 5.3 Lymph # 0.2 L [place] # 0.2 Eos # 0.0 Baso # 0.0 Neutrophils % (Manual) 45 L Band Neutrophils % 49 H* Lymphocytes % (Manual) 3 L Monocytes % (Manual) 3 Platelet Estimate Decreased L Poikilocytosis (manual Slight Anisocytosis (manual) Slight Puncture Site pCO2 pO2 HCO3 ABG pH ABG Total CO2 ABG O2 Saturation ABG Base Excess ABG Hemoglobin ABG Carboxyhemoglobin POC ABG HHb (Measured) ABG Methemoglobin Suraj Test A-a O2 Difference Respiratory Index Hgb O2 Saturation Liter Flow FiO2 Crit Value Called To Crit Value Called By Crit Value Read Back Blood Gas Notified Time Sodium 139 Potassium 3.9 Chloride 91 L Carbon Dioxide 45 H* Anion Gap 7 L BUN 23 H Creatinine 0.5 L Est GFR ( Amer) > 60 Est GFR (Non-Af Amer) > 60 POC Glucose (mg/dL) Random Glucose 82 Hemoglobin A1c 6.1 Calcium 8.1 L Phosphorus 2.9 Magnesium 2.1 Total Bilirubin 0.9 AST 73 H D ALT 43 Alkaline Phosphatase 52 Ammonia Total Protein 6.1 L Albumin 2.7 L Globulin 3.4 Albumin/Globulin Ratio 0.8 L Prostate Specific Ag 5.87 H Procalcitonin HIV 1&2 Antibody Screen 11/15/17 11/15/17 10:21 11:47 WBC RBC Hgb Hct MCV MCH MCHC RDW Plt Count MPV Neut % (Auto) Lymph % (Auto) [place] % (Auto) Eos % (Auto) Baso % (Auto) Neut # Lymph # [place] # Eos # Baso # Neutrophils % (Manual) Band Neutrophils % Lymphocytes % (Manual) Monocytes % (Manual) Platelet Estimate Poikilocytosis (manual Anisocytosis (manual) Puncture Site Rra pCO2 79 H* pO2 59 L HCO3 36.7 H ABG pH 7.36 ABG Total CO2 47.0 H ABG O2 Saturation 93.1 L ABG Base Excess 15.3 H ABG Hemoglobin 13.0 ABG Carboxyhemoglobin 2.3 H POC ABG HHb (Measured) 6.7 H ABG Methemoglobin 1.1 Suraj Test Po A-a O2 Difference 21.0 Respiratory Index 0.4 Hgb O2 Saturation 89.9 L Liter Flow 1.0 FiO2 25.0 Crit Value Called To Dr.[place] Crit Value Called By Wilfredo choi,rt Crit Value Read Back Y Blood Gas Notified Time 1000 Sodium Potassium Chloride Carbon Dioxide Anion Gap BUN Creatinine Est GFR ( Amer) Est GFR (Non-Af Amer) POC Glucose (mg/dL) 74 Random Glucose Hemoglobin A1c Calcium Phosphorus Magnesium Total Bilirubin AST ALT Alkaline Phosphatase Ammonia Total Protein Albumin Globulin Albumin/Globulin Ratio Prostate Specific Ag Procalcitonin HIV 1&2 Antibody Screen Fingerstick Blood Sugar Results: 74 Review of Systems - Review of Systems All systems: reviewed and no additional remarkable complaints except (as per HPI ) Critical Care Progress Note - Nutrition Nutrition: Nutrition Category Date Time Status NPO Diet [DIET] Diets 11/15/17 Dinner Active Assessment/Plan - Assessment and Plan (Free Text) Assessment: COPD exacerbation H/o HTN H/o CHF H/o DM2 H/o lung cancer Plan: Neuro: Neurology consulted; expresses low suspicion for meningitis and does not recommend lumbar puncture. Sedation: n/a Pain: n/a Psych: n/a Cardio: Troponins were negative. Pending results for echocardiogram and EKG. Pulm: Hypercapnic respiratory failure and h/o of COPD. Pt extubated on 11/13/17. Was on nasal cannula for a time, but has been restarted on bipap. Duoneb 3 ml INH RQ6, methylpredisolone 40 mg IVP Q8, Spiriva 18 mcg INH RQ24 for COPD. Vent Settings: 25.0 ABG: pCO2 79; pO2 59; HCO3 36.7; pH 7.36 Endo: Blood glucose has ranged between 84 and 131. HbgA1C is pending to assess Pt's long-term blood glucose control. GI: Failed swallow eval. Starting on D5 0.5 Normal Saline @ 40ml/hr. Modified barium swallow study scheduled for tomorrow. : no issues. Echavarria in place. Renal: BUN 23/ Cr 0.5. HCO3 40. I/O: 0 ml/115 ml Heme/Onc: Noted downward trend in platelet count. 136 to 121, to 103 yesterday. Today platelet count is 106. H/H: 12.2/38.7 PT: 20.4 PTT: 54 MSK: no issues. ID: WBC of 4.4. Novel bandemia noted. Repeating blood culture to assess for infection. HIV 1&2 Antibody Screen is negative. f/u AM CBC Prophylaxis: DVT: Heparin SC Q8. SCDs GI: Protonix 40 mg IVP Daily <Ja Jose S - Last Filed: 11/15/17 16:27> CCU Objective - Vital Signs / Intake & Output Vital Signs (Last 4 hours): Vital Signs Pulse Resp BP Pulse Ox 11/15/17 15:22 86 11 L 145/86 90 L 11/15/17 15:07 88 16 139/97 H 11/15/17 15:00 94 H 14 88 L 11/15/17 14:52 89 11 L 151/98 H 79 L 11/15/17 14:37 85 13 151/100 H 78 L 11/15/17 14:22 86 11 L 156/101 H 88 L 11/15/17 14:07 94 H 11 L 143/92 H 87 L 11/15/17 14:00 88 15 90 L 11/15/17 13:52 82 10 L 139/85 88 L 11/15/17 13:37 84 10 L 129/91 H 89 L 11/15/17 13:22 85 10 L 140/92 H 11/15/17 13:07 81 10 L 141/92 H 11/15/17 13:00 83 10 L 11/15/17 12:52 85 10 L 123/80 11/15/17 12:37 83 9 L 123/79 Intake and Output (Last 8hrs): Intake & Output 11/15/17 11/15/17 11/15/17 06:59 14:59 22:59 Intake Total 0 240 40 Output Total 215 190 30 Balance -215 50 10 Weight 141 lb Intake: Intake, IV Amount 120 40 Right Forearm 120 40 Oral 0 120 0 Output: Urine 215 190 30 Urethral ([place]chavarria) 215 190 30 - Medications Active Medications: Active Medications Generic Name Dose Route Start Last Admin Trade Name Aspen PRN Reason Stop Dose Admin Albuterol/Ipratropium 3 ml 11/11/17 20:00 11/15/17 13:07 Duoneb 3 Mg/0.5 Mg (3 Ml) Ud INH 3 ml RQ6 JUANA Administration Heparin Sodium (Porcine) 5,000 units 11/15/17 06:00 11/15/17 15:33 Heparin SC 5,000 units Q8 JUANA Administration Cefepime HCl 1 gm in 50 mls @ 100 mls/hr 11/14/17 18:00 11/15/17 06:07 Maxipime Iv 1 Gm Premix IVPB 100 mls/hr Q12H JUANA Administration Dextrose/Sodium Chloride 1,000 mls @ 40 mls/hr 11/15/17 11:15 11/15/17 11:49 Dextrose 5%/0.45% Ns 1000 Ml IV 40 mls/hr .Q24H JUANA Administration Methylprednisolone 40 mg 11/15/17 12:00 11/15/17 11:50 Solu-Medrol IVP 40 mg Q6 JUANA Administration Pantoprazole Sodium 40 mg 11/11/17 17:30 11/15/17 10:24 Protonix Inj IVP 40 mg DAILY JUANA Administration Tiotropium [place] 18 mcg 11/13/17 08:00 11/15/17 13:08 Spiriva INH 18 mcg RQ24 JUANA Administration - Patient Studies Lab Studies: Microbiology Studies 11/11/17 13:54 Blood Culture - Preliminary Blood NO GROWTH AFTER 4 DAYS 11/11/17 14:25 Blood Culture - Preliminary Blood NO GROWTH AFTER 4 DAYS 11/14/17 13:00 Blood Culture - Preliminary Blood NO GROWTH AFTER 24 HOURS 11/14/17 12:30 Blood Culture - Preliminary Blood NO GROWTH AFTER 24 HOURS Lab Studies 11/15/17 11/15/17 11/15/17 Range/Units 11:47 10:21 09:12 WBC (4.8-10.8) K/uL RBC (4.40-5.90) Mil/uL Hgb (12.0-18.0) g/dL Hct (35.0-51.0) % MCV (80.0-94.0) fL MCH (27.0-31.0) pg MCHC (33.0-37.0) g/dL RDW (11.5-14.5) % Plt Count (130-400) K/uL MPV (7.2-11.7) fL Neut % (Auto) (50.0-75.0) % Lymph % (Auto) (20.0-40.0) % [place] % (Auto) (0.0-10.0) % Eos % (Auto) (0.0-4.0) % Baso % (Auto) (0.0-2.0) % Neut # (1.8-7.0) K/uL Lymph # (1.0-4.3) K/uL [place] # (0.0-0.8) K/uL Eos # (0.0-0.7) K/uL Baso # (0.0-0.2) K/uL Neutrophils % (Manual) (50-75) % Band Neutrophils % (0-2) % Lymphocytes % (Manual) (20-40) % Monocytes % (Manual) (0-10) % Platelet Estimate (NORMAL) Poikilocytosis (manual Anisocytosis (manual) Puncture Site Rra pCO2 79 H* (35-45) mm/Hg pO2 59 L (80-100) mm/Hg HCO3 36.7 H (21-28) mmol/L ABG pH 7.36 (7.35-7.45) ABG Total CO2 47.0 H (22-28) mmol/L ABG O2 Saturation 93.1 L (95-98) % ABG Base Excess 15.3 H (-2.0-3.0) mmol/L ABG Hemoglobin 13.0 (11.7-17.4) g/dL ABG Carboxyhemoglobin 2.3 H (0.5-1.5) % POC ABG HHb (Measured) 6.7 H (0.0-5.0) % ABG Methemoglobin 1.1 (0.0-3.0) % Suraj Test Po A-a O2 Difference 21.0 mm/Hg Respiratory Index 0.4 Hgb O2 Saturation 89.9 L (95.0-98.0) % Liter Flow 1.0 FiO2 25.0 % Crit Value Called To Dr.aman [place] Crit Value Called By Wilfredo choi,rt Crit Value Read Back Y Blood Gas Notified Time 1000 Sodium (132-148) mmol/L Potassium (3.6-5.2) mmol/L Chloride (98-107) mmol/L Carbon Dioxide (22-30) mmol/L Anion Gap (10-20) BUN (9-20) mg/dL Creatinine (0.8-1.5) mg/dL Est GFR ( Amer) Est GFR (Non-Af Amer) POC Glucose (mg/dL) 74 (65-110) mg/dL Random Glucose (75-110) mg/dL Hemoglobin A1c 6.1 (4.2-6.5) % Calcium (8.6-10.4) mg/dl Phosphorus (2.5-4.5) mg/dL Magnesium (1.6-2.3) mg/dL Total Bilirubin (0.2-1.3) mg/dL AST (17-59) U/L ALT (21-72) U/L Alkaline Phosphatase (38-126) U/L Ammonia (9-33) umol/L Total Protein (6.3-8.3) g/dL Albumin (3.5-5.0) g/dL Globulin (2.2-3.9) gm/dL Albumin/Globulin Ratio (1.0-2.1) Prostate Specific Ag (0.00-4.0) ng/mL Procalcitonin (0.19-0.49) NG/ML 11/15/17 11/15/17 11/15/17 Range/Units 06:17 06:15 04:00 WBC 5.8 (4.8-10.8) K/uL RBC 4.30 L (4.40-5.90) Mil/uL Hgb 12.2 (12.0-18.0) g/dL Hct 38.7 (35.0-51.0) % MCV 89.9 (80.0-94.0) fL MCH 28.3 (27.0-31.0) pg MCHC 31.5 L (33.0-37.0) g/dL RDW 17.5 H (11.5-14.5) % Plt Count 106 L (130-400) K/uL MPV 8.8 (7.2-11.7) fL Neut % (Auto) 92.1 H (50.0-75.0) % Lymph % (Auto) 4.2 L (20.0-40.0) % [place] % (Auto) 3.7 (0.0-10.0) % Eos % (Auto) 0.0 (0.0-4.0) % Baso % (Auto) 0.0 (0.0-2.0) % Neut # 5.3 (1.8-7.0) K/uL Lymph # 0.2 L (1.0-4.3) K/uL [place] # 0.2 (0.0-0.8) K/uL Eos # 0.0 (0.0-0.7) K/uL Baso # 0.0 (0.0-0.2) K/uL Neutrophils % (Manual) 45 L (50-75) % Band Neutrophils % 49 H* (0-2) % Lymphocytes % (Manual) 3 L (20-40) % Monocytes % (Manual) 3 (0-10) % Platelet Estimate Decreased L (NORMAL) Poikilocytosis (manual Slight Anisocytosis (manual) Slight Puncture Site pCO2 (35-45) mm/Hg pO2 (80-100) mm/Hg HCO3 (21-28) mmol/L ABG pH (7.35-7.45) ABG Total CO2 (22-28) mmol/L ABG O2 Saturation (95-98) % ABG Base Excess (-2.0-3.0) mmol/L ABG Hemoglobin (11.7-17.4) g/dL ABG Carboxyhemoglobin (0.5-1.5) % POC ABG HHb (Measured) (0.0-5.0) % ABG Methemoglobin (0.0-3.0) % Suraj Test A-a O2 Difference mm/Hg Respiratory Index Hgb O2 Saturation (95.0-98.0) % Liter Flow FiO2 % Crit Value Called To Crit Value Called By Crit Value Read Back Blood Gas Notified Time Sodium 139 (132-148) mmol/L Potassium 3.9 (3.6-5.2) mmol/L Chloride 91 L (98-107) mmol/L Carbon Dioxide 45 H* (22-30) mmol/L Anion Gap 7 L (10-20) BUN 23 H (9-20) mg/dL Creatinine 0.5 L (0.8-1.5) mg/dL Est GFR ( Amer) > 60 Est GFR (Non-Af Amer) > 60 POC Glucose (mg/dL) (65-110) mg/dL Random Glucose 82 (75-110) mg/dL Hemoglobin A1c (4.2-6.5) % Calcium 8.1 L (8.6-10.4) mg/dl Phosphorus 2.9 (2.5-4.5) mg/dL Magnesium 2.1 (1.6-2.3) mg/dL Total Bilirubin 0.9 (0.2-1.3) mg/dL AST 73 H D (17-59) U/L ALT 43 (21-72) U/L Alkaline Phosphatase 52 (38-126) U/L Ammonia 23 (9-33) umol/L Total Protein 6.1 L (6.3-8.3) g/dL Albumin 2.7 L (3.5-5.0) g/dL Globulin 3.4 (2.2-3.9) gm/dL Albumin/Globulin Ratio 0.8 L (1.0-2.1) Prostate Specific Ag 5.87 H (0.00-4.0) ng/mL Procalcitonin (0.19-0.49) NG/ML 11/14/17 Range/Units 17:47 WBC (4.8-10.8) K/uL RBC (4.40-5.90) Mil/uL Hgb (12.0-18.0) g/dL Hct (35.0-51.0) % MCV (80.0-94.0) fL MCH (27.0-31.0) pg MCHC (33.0-37.0) g/dL RDW (11.5-14.5) % Plt Count (130-400) K/uL MPV (7.2-11.7) fL Neut % (Auto) (50.0-75.0) % Lymph % (Auto) (20.0-40.0) % Rapides % (Auto) (0.0-10.0) % Eos % (Auto) (0.0-4.0) % Baso % (Auto) (0.0-2.0) % Neut # (1.8-7.0) K/uL Lymph # (1.0-4.3) K/uL [place] # (0.0-0.8) K/uL Eos # (0.0-0.7) K/uL Baso # (0.0-0.2) K/uL Neutrophils % (Manual) (50-75) % Band Neutrophils % (0-2) % Lymphocytes % (Manual) (20-40) % Monocytes % (Manual) (0-10) % Platelet Estimate (NORMAL) Poikilocytosis (manual Anisocytosis (manual) Puncture Site pCO2 (35-45) mm/Hg pO2 (80-100) mm/Hg HCO3 (21-28) mmol/L ABG pH (7.35-7.45) ABG Total CO2 (22-28) mmol/L ABG O2 Saturation (95-98) % ABG Base Excess (-2.0-3.0) mmol/L ABG Hemoglobin (11.7-17.4) g/dL ABG Carboxyhemoglobin (0.5-1.5) % POC ABG HHb (Measured) (0.0-5.0) % ABG Methemoglobin (0.0-3.0) % Suraj Test A-a O2 Difference mm/Hg Respiratory Index Hgb O2 Saturation (95.0-98.0) % Liter Flow FiO2 % Crit Value Called To Crit Value Called By Crit Value Read Back Blood Gas Notified Time Sodium (132-148) mmol/L Potassium (3.6-5.2) mmol/L Chloride (98-107) mmol/L Carbon Dioxide (22-30) mmol/L Anion Gap (10-20) BUN (9-20) mg/dL Creatinine (0.8-1.5) mg/dL Est GFR ( Amer) Est GFR (Non-Af Amer) POC Glucose (mg/dL) (65-110) mg/dL Random Glucose (75-110) mg/dL Hemoglobin A1c (4.2-6.5) % Calcium (8.6-10.4) mg/dl Phosphorus (2.5-4.5) mg/dL Magnesium (1.6-2.3) mg/dL Total Bilirubin (0.2-1.3) mg/dL AST (17-59) U/L ALT (21-72) U/L Alkaline Phosphatase (38-126) U/L Ammonia (9-33) umol/L Total Protein (6.3-8.3) g/dL Albumin (3.5-5.0) g/dL Globulin (2.2-3.9) gm/dL Albumin/Globulin Ratio (1.0-2.1) Prostate Specific Ag (0.00-4.0) ng/mL Procalcitonin 0.20 (0.19-0.49) NG/ML Laboratory Results - last 24 hr 11/14/17 11/15/17 11/15/17 17:47 04:00 06:15 WBC 5.8 RBC 4.30 L Hgb 12.2 Hct 38.7 MCV 89.9 MCH 28.3 MCHC 31.5 L RDW 17.5 H Plt Count 106 L MPV 8.8 Neut % (Auto) 92.1 H Lymph % (Auto) 4.2 L Rapides % (Auto) 3.7 Eos % (Auto) 0.0 Baso % (Auto) 0.0 Neut # 5.3 Lymph # 0.2 L [place]ides # 0.2 Eos # 0.0 Baso # 0.0 Neutrophils % (Manual) 45 L Band Neutrophils % 49 H* Lymphocytes % (Manual) 3 L Monocytes % (Manual) 3 Platelet Estimate Decreased L Poikilocytosis (manual Slight Anisocytosis (manual) Slight Puncture Site pCO2 pO2 HCO3 ABG pH ABG Total CO2 ABG O2 Saturation ABG Base Excess ABG Hemoglobin ABG Carboxyhemoglobin POC ABG HHb (Measured) ABG Methemoglobin Suraj Test A-a O2 Difference Respiratory Index Hgb O2 Saturation Liter Flow FiO2 Crit Value Called To Crit Value Called By Crit Value Read Back Blood Gas Notified Time Sodium Potassium Chloride Carbon Dioxide Anion Gap BUN Creatinine Est GFR ( Amer) Est GFR (Non-Af Amer) POC Glucose (mg/dL) Random Glucose Hemoglobin A1c Calcium Phosphorus Magnesium Total Bilirubin AST ALT Alkaline Phosphatase Ammonia 23 Total Protein Albumin Globulin Albumin/Globulin Ratio Prostate Specific Ag Procalcitonin 0.20 11/15/17 11/15/17 11/15/17 06:17 09:12 10:21 WBC RBC Hgb Hct MCV MCH MCHC RDW Plt Count MPV Neut % (Auto) Lymph % (Auto) [place] % (Auto) Eos % (Auto) Baso % (Auto) Neut # Lymph # [place] # Eos # Baso # Neutrophils % (Manual) Band Neutrophils % Lymphocytes % (Manual) Monocytes % (Manual) Platelet Estimate Poikilocytosis (manual Anisocytosis (manual) Puncture Site Rra pCO2 79 H* pO2 59 L HCO3 36.7 H ABG pH 7.36 ABG Total CO2 47.0 H ABG O2 Saturation 93.1 L ABG Base Excess 15.3 H ABG Hemoglobin 13.0 ABG Carboxyhemoglobin 2.3 H POC ABG HHb (Measured) 6.7 H ABG Methemoglobin 1.1 Suraj Test Po A-a O2 Difference 21.0 Respiratory Index 0.4 Hgb O2 Saturation 89.9 L Liter Flow 1.0 FiO2 25.0 Crit Value Called To Dr.aman hills Crit Value Called By Wilfredo choi,rt Crit Value Read Back Y Blood Gas Notified Time 1000 Sodium 139 Potassium 3.9 Chloride 91 L Carbon Dioxide 45 H* Anion Gap 7 L BUN 23 H Creatinine 0.5 L Est GFR ( Amer) > 60 Est GFR (Non-Af Amer) > 60 POC Glucose (mg/dL) Random Glucose 82 Hemoglobin A1c 6.1 Calcium 8.1 L Phosphorus 2.9 Magnesium 2.1 Total Bilirubin 0.9 AST 73 H D ALT 43 Alkaline Phosphatase 52 Ammonia Total Protein 6.1 L Albumin 2.7 L Globulin 3.4 Albumin/Globulin Ratio 0.8 L Prostate Specific Ag 5.87 H Procalcitonin 11/15/17 11:47 WBC RBC Hgb Hct MCV MCH MCHC RDW Plt Count MPV Neut % (Auto) Lymph % (Auto) [place] % (Auto) Eos % (Auto) Baso % (Auto) Neut # Lymph # [place] # Eos # Baso # Neutrophils % (Manual) Band Neutrophils % Lymphocytes % (Manual) Monocytes % (Manual) Platelet Estimate Poikilocytosis (manual Anisocytosis (manual) Puncture Site pCO2 pO2 HCO3 ABG pH ABG Total CO2 ABG O2 Saturation ABG Base Excess ABG Hemoglobin ABG Carboxyhemoglobin POC ABG HHb (Measured) ABG Methemoglobin Suraj Test A-a O2 Difference Respiratory Index Hgb O2 Saturation Liter Flow FiO2 Crit Value Called To Crit Value Called By Crit Value Read Back Blood Gas Notified Time Sodium Potassium Chloride Carbon Dioxide Anion Gap BUN Creatinine Est GFR ( Amer) Est GFR (Non-Af Amer) POC Glucose (mg/dL) 74 Random Glucose Hemoglobin A1c Calcium Phosphorus Magnesium Total Bilirubin AST ALT Alkaline Phosphatase Ammonia Total Protein Albumin Globulin Albumin/Globulin Ratio Prostate Specific Ag Procalcitonin Critical Care Progress Note - Nutrition Nutrition: Nutrition Category Date Time Status NPO Diet [DIET] Diets 11/15/17 Dinner Active Assessment/Plan (1) Acute hypercapnic respiratory failure Current Visit: Yes Status: Acute (2) COPD exacerbation Current Visit: No Status: Acute Attending/Attestation - Attestation I have personally seen and examined this patient.: Yes I have fully participated in the care of the patient.: Yes I have reviewed all pertinent clinical information: Yes Notes (Text): 11/15/17 16:23 patient seen and examined in the intensive care unit. Case discussed with the staff in the morning. Status post extubation Continue BiPAP as needed Failed swallowing evaluation for barium Swallow study
--- NOTE | 2017-11-15 19:03 | CP.PCM.PN ---
Subjective - Date & Time of Evaluation Date of Evaluation: 11/15/17 Time of Evaluation: 18:20 - Subjective Subjective: patient has no chest pain or dyspnea. Objective - Vital Signs/Intake and Output Vital Signs (last 24 hours): Temp Pulse Resp BP Pulse Ox 97.3 F L 90 13 150/99 H 94 L 11/15/17 16:00 11/15/17 17:21 11/15/17 17:21 11/15/17 17:22 11/15/17 17:21 Intake and Output: 11/15/17 11/16/17 18:59 06:59 Intake Total 360 Output Total 285 Balance 75 - Medications Medications: Current Medications Albuterol/Ipratropium (Duoneb 3 Mg/0.5 Mg (3 Ml) Ud) 3 ml INH RQ6 [facility] Last Admin: 11/15/17 13:07 Dose: 3 ml Heparin Sodium (Porcine) (Heparin) 5,000 units SC Q8 [facility] Last Admin: 11/15/17 15:33 Dose: 5,000 units Cefepime HCl (Maxipime Iv 1 Gm Premix) 1 gm in 50 mls @ 100 mls/hr IVPB Q12H [facility] Last Admin: 11/15/17 17:26 Dose: 100 mls/hr Dextrose/Sodium Chloride (Dextrose 5%/0.45% Ns 1000 Ml) 1,000 mls @ 40 mls/hr IV .Q24H [facility] Last Admin: 11/15/17 11:49 Dose: 40 mls/hr Methylprednisolone (Solu-Medrol) 40 mg IVP Q6 [facility] Last Admin: 11/15/17 17:27 Dose: 40 mg Pantoprazole Sodium (Protonix Inj) 40 mg IVP DAILY [facility] Last Admin: 11/15/17 10:24 Dose: 40 mg Tiotropium [place] (Spiriva) 18 mcg INH RQ24 [facility] Last Admin: 11/15/17 13:08 Dose: 18 mcg - Labs Labs: 11/15/17 06:15 11/15/17 06:17 PT 20.4 SECONDS (9.7-12.2) H 11/11/17 14:13 INR 1.8 11/11/17 14:13 APTT 54 SECONDS (21-34) H 11/11/17 14:13 - Constitutional Appears: Non-toxic - Head Exam Head Exam: NORMAL INSPECTION - Eye Exam Eye Exam: Normal appearance - ENT Exam ENT Exam: Mucous Membranes Moist - Neck Exam Neck Exam: Full ROM - Respiratory Exam Respiratory Exam: NORMAL BREATHING PATTERN - Cardiovascular Exam Cardiovascular Exam: REGULAR RHYTHM - GI/Abdominal Exam GI & Abdominal Exam: Normal Bowel Sounds - Rectal Exam Rectal Exam: Deferred - Extremities Exam Extremities Exam: Normal Inspection - Back Exam Back Exam: NORMAL INSPECTION - Neurological Exam Neurological Exam: Alert - Psychiatric Exam Psychiatric exam: Normal Affect - Skin Skin Exam: Normal Color Assessment and Plan (1) Acute hypercapnic respiratory failure Assessment & Plan: improving with pulmonary management Status: Acute (2) Cardiomyopathy Assessment & Plan: patient has mild LV dysfunction by echocardiogram. Recommend medical therapy. There is a small pericardial effusion on echocardiogram Status: Acute
--- NOTE | 2017-11-15 19:19 | CP.PCM.PN ---
Subjective - Date & Time of Evaluation Date of Evaluation: 11/15/17 Time of Evaluation: 08:00 - Subjective Subjective: no chest pain cultures pending Objective - Vital Signs/Intake and Output Vital Signs (last 24 hours): Temp Pulse Resp BP Pulse Ox 97.3 F L 90 13 150/99 H 94 L 11/15/17 16:00 11/15/17 17:21 11/15/17 17:21 11/15/17 17:22 11/15/17 17:21 Intake and Output: 11/15/17 11/16/17 18:59 06:59 Intake Total 360 Output Total 285 Balance 75 - Medications Medications: Current Medications Albuterol/Ipratropium (Duoneb 3 Mg/0.5 Mg (3 Ml) Ud) 3 ml INH RQ6 [facility] Last Admin: 11/15/17 13:07 Dose: 3 ml Heparin Sodium (Porcine) (Heparin) 5,000 units SC Q8 [facility] Last Admin: 11/15/17 15:33 Dose: 5,000 units Cefepime HCl (Maxipime Iv 1 Gm Premix) 1 gm in 50 mls @ 100 mls/hr IVPB Q12H [facility] Last Admin: 11/15/17 17:26 Dose: 100 mls/hr Dextrose/Sodium Chloride (Dextrose 5%/0.45% Ns 1000 Ml) 1,000 mls @ 40 mls/hr IV .Q24H [facility] Last Admin: 11/15/17 11:49 Dose: 40 mls/hr Methylprednisolone (Solu-Medrol) 40 mg IVP Q6 [facility] Last Admin: 11/15/17 17:27 Dose: 40 mg Pantoprazole Sodium (Protonix Inj) 40 mg IVP DAILY [facility] Last Admin: 11/15/17 10:24 Dose: 40 mg Tiotropium [place] (Spiriva) 18 mcg INH RQ24 [facility] Last Admin: 11/15/17 13:08 Dose: 18 mcg - Labs Labs: 11/15/17 06:15 11/15/17 06:17 PT 20.4 SECONDS (9.7-12.2) H 11/11/17 14:13 INR 1.8 11/11/17 14:13 APTT 54 SECONDS (21-34) H 11/11/17 14:13 - Constitutional Appears: Non-toxic, Chronically Ill - Head Exam Head Exam: NORMOCEPHALIC - Eye Exam Eye Exam: PERRL - ENT Exam ENT Exam: Mucous Membranes Dry - Neck Exam Neck Exam: absent: Lymphadenopathy - Respiratory Exam Respiratory Exam: Decreased Breath Sounds - Cardiovascular Exam Cardiovascular Exam: REGULAR RHYTHM - GI/Abdominal Exam GI & Abdominal Exam: Distended Assessment and Plan (1) Acute hypercapnic respiratory failure Status: Acute (2) Hypothermia Status: Acute (3) Syncope and collapse Status: Acute (4) Toxic metabolic encephalopathy Status: Acute (5) CHF (congestive heart failure) Status: Acute (6) COPD exacerbation Status: Acute (7) Chr obstructive pulmonary disease w/ acute lower respiratory infxn Status: Acute
--- NOTE | 2017-11-15 19:27 | CP.PCM.PN ---
Subjective - Date & Time of Evaluation Date of Evaluation: 11/15/17 Time of Evaluation: 14:00 - Subjective Subjective: clinically same Objective - Vital Signs/Intake and Output Vital Signs (last 24 hours): Temp Pulse Resp BP Pulse Ox 97.3 F L 90 13 150/99 H 94 L 11/15/17 16:00 11/15/17 17:21 11/15/17 17:21 11/15/17 17:22 11/15/17 17:21 Intake and Output: 11/15/17 11/16/17 18:59 06:59 Intake Total 360 Output Total 285 Balance 75 - Medications Medications: Current Medications Albuterol/Ipratropium (Duoneb 3 Mg/0.5 Mg (3 Ml) Ud) 3 ml INH RQ6 [facility] Last Admin: 11/15/17 13:07 Dose: 3 ml Heparin Sodium (Porcine) (Heparin) 5,000 units SC Q8 [facility] Last Admin: 11/15/17 15:33 Dose: 5,000 units Cefepime HCl (Maxipime Iv 1 Gm Premix) 1 gm in 50 mls @ 100 mls/hr IVPB Q12H [facility] Last Admin: 11/15/17 17:26 Dose: 100 mls/hr Dextrose/Sodium Chloride (Dextrose 5%/0.45% Ns 1000 Ml) 1,000 mls @ 40 mls/hr IV .Q24H [facility] Last Admin: 11/15/17 11:49 Dose: 40 mls/hr Methylprednisolone (Solu-Medrol) 40 mg IVP Q6 [facility] Last Admin: 11/15/17 17:27 Dose: 40 mg Pantoprazole Sodium (Protonix Inj) 40 mg IVP DAILY [facility] Last Admin: 11/15/17 10:24 Dose: 40 mg Tiotropium [place] (Spiriva) 18 mcg INH RQ24 [facility] Last Admin: 11/15/17 13:08 Dose: 18 mcg - Labs Labs: 11/15/17 06:15 11/15/17 06:17 PT 20.4 SECONDS (9.7-12.2) H 11/11/17 14:13 INR 1.8 11/11/17 14:13 APTT 54 SECONDS (21-34) H 11/11/17 14:13 - Constitutional Appears: Well - Head Exam Head Exam: ATRAUMATIC, NORMAL INSPECTION, NORMOCEPHALIC - Eye Exam Eye Exam: EOMI, Normal appearance, PERRL Pupil Exam: NORMAL ACCOMODATION, PERRL - ENT Exam ENT Exam: Mucous Membranes Moist, Normal Exam - Neck Exam Neck Exam: Full ROM, Normal Inspection. absent: Lymphadenopathy - Respiratory Exam Respiratory Exam: Decreased Breath Sounds - Cardiovascular Exam Cardiovascular Exam: REGULAR RHYTHM, +S1, +S2 - GI/Abdominal Exam GI & Abdominal Exam: Soft, Diminished Bowel Sounds - Rectal Exam Rectal Exam: Deferred
[2017-11-16] MEDS: MethylPREDNISolone 40 mg Vial IVP SCH ×4 (00:05→18:05)
[2017-11-16] MEDS: Albuterol-Ipratrop 3 mg / 0.5 (3 ml) UD INH SCH ×4 (01:17→19:47)
[2017-11-16] MEDS: Cefepime IV 1 gm in Dextrose 1 GM/50 ML BAG IVPB SCH ×2 (05:38→18:04)
[2017-11-16 06:36] LABS: HEMOGLOBIN 12.1 g/dL (12.0-18.0); MEAN CELL VOLUME 90.1 fL (80.0-94.0); MEAN CORPUSCULAR HEMOGLOBIN 27.9 pg (27.0-31.0); MEAN CORPUSCULAR HGB CONC 30.9 g/dL (33.0-37.0); MEAN PLATELET VOLUME 8.7 fL (7.2-11.7); PLATELET COUNT 78 K/uL (130-400); RBC 4.35 Mil/uL (4.40-5.90); RED CELL DISTRIBUTION WIDTH 17.2 % (11.5-14.5); WHITE BLOOD COUNT 3.7 K/uL (4.8-10.8)
[2017-11-16 07:05] LABS: BLOOD UREA NITROGEN 27 mg/dL (9-20)
[2017-11-16 07:06] LABS: ALB/GLOB RATIO 0.9 (1.0-2.1); ALBUMIN 2.9 g/dL (3.5-5.0); CALCIUM 8.3 mg/dl (8.6-10.4); GFR AFRICAN-AMERICAN > 60; GFR NON-AFRICAN AMERICAN > 60; MAGNESIUM 2.1 mg/dL (1.6-2.3)
[2017-11-16 07:07] LABS: ALT/SGPT 43 U/L (21-72); AST/SGOT 49 U/L (17-59)
[2017-11-16] MEDS: Tiotropium 18 mcg Cap For Inhalation INH SCH (07:56)
[2017-11-16 09:10] LABS: EOS # 0.3 K/uL (0.0-0.7); LYMPH # 3.3 K/uL (1.0-4.3); MONO # 0.2 K/uL (0.0-0.8)
[2017-11-16 09:29] LABS: ABG ALLEN TEST POS; ARTERIAL BLOOD GAS HCO3 37.2 mmol/L (21-28); ARTERIAL BLOOD GAS HEMOGLOBIN 11.8 g/dL (11.7-17.4); ARTERIAL BLOOD GAS O2 SAT 89.7 % (95-98); ARTERIAL BLOOD GAS PCO2 71 mm/Hg (35-45); ARTERIAL BLOOD GAS PO2 51 mm/Hg (80-100); ARTERIAL BLOOD GAS TCO2 46.2 mmol/L (22-28)
[2017-11-16 09:42] LABS: ANISOCYTOSIS SLIGHT; BANDS 26 % (0-2); LYMPHOCYTE 11 % (20-40); MONOCYTE 4 % (0-10); NEUTROPHIL 59 % (50-75); PLATELET ESTIMATE DECREASED (NORMAL); POIKILOCYTOSIS SLIGHT; TOTAL CELLS COUNTED 100
[2017-11-16 09:43] LABS: HYPOCHROMIC SLIGHT; TARGET CELLS SLIGHT
[2017-11-16 09:44] LABS: LARGE PLATELETS PRESENT
--- NOTE | 2017-11-16 10:54 | CP.PCM.PN ---
Subjective - Date & Time of Evaluation Date of Evaluation: 11/16/17 Time of Evaluation: 10:00 - Subjective Subjective: patient feels comforatble. Objective - Vital Signs/Intake and Output Vital Signs (last 24 hours): Temp Pulse Resp BP Pulse Ox 97.6 F 94 H 17 110/70 93 L 11/16/17 08:00 11/16/17 09:52 11/16/17 09:52 11/16/17 09:52 11/16/17 09:52 Intake and Output: 11/16/17 11/16/17 06:59 18:59 Intake Total 490 370 Output Total 260 45 Balance 230 325 - Medications Medications: Current Medications Albuterol/Ipratropium (Duoneb 3 Mg/0.5 Mg (3 Ml) Ud) 3 ml INH RQ6 [facility] Last Admin: 11/16/17 07:56 Dose: 3 ml Heparin Sodium (Porcine) (Heparin) 5,000 units SC Q8 [facility] Last Admin: 11/16/17 05:37 Dose: 5,000 units Cefepime HCl (Maxipime Iv 1 Gm Premix) 1 gm in 50 mls @ 100 mls/hr IVPB Q12H [facility] Last Admin: 11/16/17 05:38 Dose: 100 mls/hr Dextrose/Sodium Chloride (Dextrose 5%/0.45% Ns 1000 Ml) 1,000 mls @ 40 mls/hr IV .Q24H [facility] Last Admin: 11/15/17 11:49 Dose: 40 mls/hr Methylprednisolone (Solu-Medrol) 40 mg IVP Q6 [facility] Last Admin: 11/16/17 05:38 Dose: 40 mg Pantoprazole Sodium (Protonix Inj) 40 mg IVP DAILY [facility] Last Admin: 11/16/17 09:30 Dose: 40 mg Tiotropium [place] (Spiriva) 18 mcg INH RQ24 [facility] Last Admin: 11/16/17 07:56 Dose: 18 mcg - Labs Labs: 11/16/17 06:18 11/16/17 06:20 PT 20.4 SECONDS (9.7-12.2) H 11/11/17 14:13 INR 1.8 11/11/17 14:13 APTT 54 SECONDS (21-34) H 11/11/17 14:13 - Constitutional Appears: Non-toxic - Head Exam Head Exam: NORMAL INSPECTION - Eye Exam Eye Exam: Normal appearance - ENT Exam ENT Exam: Mucous Membranes Moist - Neck Exam Neck Exam: Full ROM - Respiratory Exam Respiratory Exam: Decreased Breath Sounds - Cardiovascular Exam Cardiovascular Exam: REGULAR RHYTHM - GI/Abdominal Exam GI & Abdominal Exam: Normal Bowel Sounds - Rectal Exam Rectal Exam: Deferred - Extremities Exam Extremities Exam: absent: Pedal Edema - Back Exam Back Exam: NORMAL INSPECTION - Neurological Exam Neurological Exam: Alert - Psychiatric Exam Psychiatric exam: Normal Affect - Skin Skin Exam: Normal Color Assessment and Plan (1) Acute hypercapnic respiratory failure Assessment & Plan: pulmonary management Status: Acute (2) Cardiomyopathy Assessment & Plan: appears euvolemic Status: Acute
--- NOTE | 2017-11-16 11:20 | RAD ---
HISTORY: bandemia COMPARISON: 11/13/2017 FINDINGS: LUNGS: Interval bibasilar consolidations/ infiltrates. Interval patchy right upper lobe infiltrate PLEURA: Interval bibasilar pleural effusions no pneumothorax apparent. CARDIOVASCULAR: Normal. OSSEOUS STRUCTURES: No significant abnormalities. VISUALIZED UPPER ABDOMEN: Normal. OTHER FINDINGS: None. IMPRESSION: Interval bibasilar infiltrates . Interval right upper lobe patchy infiltrate Interval bilateral pleural effusions Follow up to resolution recommended
[2017-11-16] MEDS: Dextrose 5%/0.45% NS 1,000 ML IV SCH (11:48)
--- NOTE | 2017-11-16 13:42 | CP.CCUPN ---
<Sarah Britton - Last Filed: 11/16/17 13:38> CCU Subjective - Physician Review Subjective (Free Text): 11/16/17 13:38 At present Pt is arousable, and more communicative today than previously, however still speaks very little to me. Denies any complaints. CCU Objective - Vital Signs / Intake & Output Vital Signs (Last 4 hours): Vital Signs Temp Pulse Resp BP Pulse Ox 11/16/17 12:07 92 H 10 L 131/82 11/16/17 12:00 96.7 F L 91 H 15 11/16/17 11:52 97 H 14 139/86 11/16/17 11:37 100 H 14 134/80 11/16/17 11:22 90 12 135/81 11/16/17 11:17 89 11/16/17 11:07 97 H 12 127/72 97 11/16/17 11:00 89 11 L 97 11/16/17 10:52 89 12 141/75 97 11/16/17 10:37 95 H 16 131/77 90 L 11/16/17 10:22 89 13 123/71 91 L 11/16/17 10:07 90 13 119/70 93 L 11/16/17 10:00 91 H 13 92 L 11/16/17 09:52 94 H 17 110/70 93 L Intake and Output (Last 8hrs): Intake & Output 11/15/17 11/16/17 11/16/17 22:59 06:59 14:59 Intake Total 768 963 0914 Output Total 195 160 160 Balance 85 170 870 Weight 124 lb 11.2 oz Intake: Intake, IV Amount 280 330 250 Left Antecubital 10 Right Forearm 280 330 240 Oral 0 0 780 Output: Urine 195 160 160 Urethral (Echavarria) 195 160 160 - Physical Exam Physical Exam Limitations: Positive for: Other (confused at times ) Head: Positive for: Atraumatic, Normocephalic Pupils: Positive for: PERRL Extroacular Muscles: Positive for: EOMI Conjunctiva: Positive for: Normal Mouth: Positive for: Moist Mucous Membranes Respiratory/Chest: Positive for: Good Air Exchange, Wheezes, Rales. Negative for: Respiratory Distress Cardiovascular: Positive for: Regular Rate and Rhythm Abdomen: Negative for: Tenderness, Distention Upper Extremity: Positive for: Normal Inspection Lower Extremity: Positive for: Normal Inspection Neurological: Positive for: GCS=15 Psychiatric: Positive for: Alert - Medications Active Medications: Active Medications Generic Name Dose Route Start Last Admin Trade Name Freq PRN Reason Stop Dose Admin Albuterol/Ipratropium 3 ml 11/11/17 20:00 11/16/17 07:56 Duoneb 3 Mg/0.5 Mg (3 Ml) Ud INH 3 ml RQ6 JUANA Administration Heparin Sodium (Porcine) 5,000 units 11/15/17 06:00 11/16/17 05:37 Heparin SC 5,000 units Q8 JUANA Administration Cefepime HCl 1 gm in 50 mls @ 100 mls/hr 11/14/17 18:00 11/16/17 05:38 Maxipime Iv 1 Gm Premix IVPB 100 mls/hr Q12H JUANA Administration Dextrose/Sodium Chloride 1,000 mls @ 40 mls/hr 11/15/17 11:15 11/16/17 11:48 Dextrose 5%/0.45% Ns 1000 Ml IV 40 mls/hr .Q24H JUANA Administration Vancomycin HCl 1 gm/ Sodium 200 mls @ 166.7 mls/hr 11/16/17 12:00 Chloride IVPB Q24H JUANA Methylprednisolone 40 mg 11/15/17 12:00 11/16/17 11:48 Solu-Medrol IVP 40 mg Q6 JUANA Administration Pantoprazole Sodium 40 mg 11/11/17 17:30 11/16/17 09:30 Protonix Inj IVP 40 mg DAILY JUANA Administration Tiotropium [place] 18 mcg 11/13/17 08:00 11/16/17 07:56 Spiriva INH 18 mcg RQ24 JUANA Administration - Patient Studies Lab Studies: Microbiology Studies 11/14/17 13:00 Blood Culture - Preliminary Blood NO GROWTH AFTER 48 HOURS 11/14/17 12:30 Blood Culture - Preliminary Blood NO GROWTH AFTER 48 HOURS 11/11/17 13:54 Blood Culture - Preliminary Blood NO GROWTH AFTER 4 DAYS 11/11/17 14:25 Blood Culture - Preliminary Blood NO GROWTH AFTER 4 DAYS Lab Studies 11/16/17 11/16/17 11/16/17 Range/Units 11:51 09:20 06:20 WBC (4.8-10.8) K/uL RBC (4.40-5.90) Mil/uL Hgb (12.0-18.0) g/dL Hct (35.0-51.0) % MCV (80.0-94.0) fL MCH (27.0-31.0) pg MCHC (33.0-37.0) g/dL RDW (11.5-14.5) % Plt Count (130-400) K/uL MPV (7.2-11.7) fL Neut % (Auto) (50.0-75.0) % Lymph % (Auto) (20.0-40.0) % Dickenson % (Auto) (0.0-10.0) % Eos % (Auto) (0.0-4.0) % Baso % (Auto) (0.0-2.0) % Neut # (1.8-7.0) K/uL Lymph # (1.0-4.3) K/uL Dickenson # (0.0-0.8) K/uL Eos # (0.0-0.7) K/uL Baso # (0.0-0.2) K/uL Neutrophils % (Manual) (50-75) % Band Neutrophils % (0-2) % Lymphocytes % (Manual) (20-40) % Monocytes % (Manual) (0-10) % Platelet Estimate (NORMAL) Large Platelets Hypochromasia (manual) Poikilocytosis (manual Anisocytosis (manual) Macrocytosis (manual) Target Cells Puncture Site R/rad pCO2 71 H* (35-45) mm/Hg pO2 51 L (80-100) mm/Hg HCO3 37.2 H (21-28) mmol/L ABG pH 7.40 (7.35-7.45) ABG Total CO2 46.2 H (22-28) mmol/L ABG O2 Saturation 89.7 L (95-98) % ABG Base Excess 16.0 H (-2.0-3.0) mmol/L ABG Hemoglobin 11.8 (11.7-17.4) g/dL ABG Carboxyhemoglobin 2.6 H (0.5-1.5) % POC ABG HHb (Measured) 9.9 H (0.0-5.0) % ABG Methemoglobin 0.9 (0.0-3.0) % Suraj Test Pos Hgb O2 Saturation 86.6 L (95.0-98.0) % Liter Flow 1.0 Crit Value Called To Dr ochoa Crit Value Called By [place] travis residential concierge Crit Value Read Back Y Blood Gas Notified Time 925 Sodium 138 (132-148) mmol/L Potassium 3.8 (3.6-5.2) mmol/L Chloride 92 L (98-107) mmol/L Carbon Dioxide 43 H* (22-30) mmol/L Anion Gap 7 L (10-20) BUN 27 H (9-20) mg/dL Creatinine 0.5 L (0.8-1.5) mg/dL Est GFR ( Amer) > 60 Est GFR (Non-Af Amer) > 60 POC Glucose (mg/dL) 146 H (65-110) mg/dL Random Glucose 112 H (75-110) mg/dL Calcium 8.3 L (8.6-10.4) mg/dl Phosphorus 3.1 (2.5-4.5) mg/dL Magnesium 2.1 (1.6-2.3) mg/dL Total Bilirubin 0.7 (0.2-1.3) mg/dL AST 49 (17-59) U/L ALT 43 (21-72) U/L Alkaline Phosphatase 50 (38-126) U/L Total Protein 5.9 L (6.3-8.3) g/dL Albumin 2.9 L (3.5-5.0) g/dL Globulin 3.1 (2.2-3.9) gm/dL Albumin/Globulin Ratio 0.9 L (1.0-2.1) Urine Myoglobin 11/16/17 11/16/17 11/16/17 Range/Units 06:18 05:32 00:07 WBC 3.7 L (4.8-10.8) K/uL RBC 4.35 L (4.40-5.90) Mil/uL Hgb 12.1 (12.0-18.0) g/dL Hct 39.2 (35.0-51.0) % MCV 90.1 (80.0-94.0) fL MCH 27.9 (27.0-31.0) pg MCHC 30.9 L (33.0-37.0) g/dL RDW 17.2 H (11.5-14.5) % Plt Count 78 L D (130-400) K/uL MPV 8.7 (7.2-11.7) fL Neut % (Auto) 88.0 H (50.0-75.0) % Lymph % (Auto) 5.0 L (20.0-40.0) % Dickenson % (Auto) 7.0 (0.0-10.0) % Eos % (Auto) 0.0 (0.0-4.0) % Baso % (Auto) 0.0 (0.0-2.0) % Neut # 3.0 (1.8-7.0) K/uL Lymph # 3.3 (1.0-4.3) K/uL Dickenson # 0.2 (0.0-0.8) K/uL Eos # 0.3 (0.0-0.7) K/uL Baso # 0.0 (0.0-0.2) K/uL Neutrophils % (Manual) 59 (50-75) % Band Neutrophils % 26 H* (0-2) % Lymphocytes % (Manual) 11 L (20-40) % Monocytes % (Manual) 4 (0-10) % Platelet Estimate Decreased L (NORMAL) Large Platelets Present Hypochromasia (manual) Slight Poikilocytosis (manual Slight Anisocytosis (manual) Slight Macrocytosis (manual) Slight Target Cells Slight Puncture Site pCO2 (35-45) mm/Hg pO2 (80-100) mm/Hg HCO3 (21-28) mmol/L ABG pH (7.35-7.45) ABG Total CO2 (22-28) mmol/L ABG O2 Saturation (95-98) % ABG Base Excess (-2.0-3.0) mmol/L ABG Hemoglobin (11.7-17.4) g/dL ABG Carboxyhemoglobin (0.5-1.5) % POC ABG HHb (Measured) (0.0-5.0) % ABG Methemoglobin (0.0-3.0) % Suraj Test Hgb O2 Saturation (95.0-98.0) % Liter Flow Crit Value Called To Crit Value Called By Crit Value Read Back Blood Gas Notified Time Sodium (132-148) mmol/L Potassium (3.6-5.2) mmol/L Chloride (98-107) mmol/L Carbon Dioxide (22-30) mmol/L Anion Gap (10-20) BUN (9-20) mg/dL Creatinine (0.8-1.5) mg/dL Est GFR ( Amer) Est GFR (Non-Af Amer) POC Glucose (mg/dL) 128 H 116 H (65-110) mg/dL Random Glucose (75-110) mg/dL Calcium (8.6-10.4) mg/dl Phosphorus (2.5-4.5) mg/dL Magnesium (1.6-2.3) mg/dL Total Bilirubin (0.2-1.3) mg/dL AST (17-59) U/L ALT (21-72) U/L Alkaline Phosphatase (38-126) U/L Total Protein (6.3-8.3) g/dL Albumin (3.5-5.0) g/dL Globulin (2.2-3.9) gm/dL Albumin/Globulin Ratio (1.0-2.1) Urine Myoglobin 11/15/17 11/11/17 Range/Units 18:04 15:34 WBC (4.8-10.8) K/uL RBC (4.40-5.90) Mil/uL Hgb (12.0-18.0) g/dL Hct (35.0-51.0) % MCV (80.0-94.0) fL MCH (27.0-31.0) pg MCHC (33.0-37.0) g/dL RDW (11.5-14.5) % Plt Count (130-400) K/uL MPV (7.2-11.7) fL Neut % (Auto) (50.0-75.0) % Lymph % (Auto) (20.0-40.0) % Dickenson % (Auto) (0.0-10.0) % Eos % (Auto) (0.0-4.0) % Baso % (Auto) (0.0-2.0) % Neut # (1.8-7.0) K/uL Lymph # (1.0-4.3) K/uL Dickenson # (0.0-0.8) K/uL Eos # (0.0-0.7) K/uL Baso # (0.0-0.2) K/uL Neutrophils % (Manual) (50-75) % Band Neutrophils % (0-2) % Lymphocytes % (Manual) (20-40) % Monocytes % (Manual) (0-10) % Platelet Estimate (NORMAL) Large Platelets Hypochromasia (manual) Poikilocytosis (manual Anisocytosis (manual) Macrocytosis (manual) Target Cells Puncture Site pCO2 (35-45) mm/Hg pO2 (80-100) mm/Hg HCO3 (21-28) mmol/L ABG pH (7.35-7.45) ABG Total CO2 (22-28) mmol/L ABG O2 Saturation (95-98) % ABG Base Excess (-2.0-3.0) mmol/L ABG Hemoglobin (11.7-17.4) g/dL ABG Carboxyhemoglobin (0.5-1.5) % POC ABG HHb (Measured) (0.0-5.0) % ABG Methemoglobin (0.0-3.0) % Suraj Test Hgb O2 Saturation (95.0-98.0) % Liter Flow Crit Value Called To Crit Value Called By Crit Value Read Back Blood Gas Notified Time Sodium (132-148) mmol/L Potassium (3.6-5.2) mmol/L Chloride (98-107) mmol/L Carbon Dioxide (22-30) mmol/L Anion Gap (10-20) BUN (9-20) mg/dL Creatinine (0.8-1.5) mg/dL Est GFR ( Amer) Est GFR (Non-Af Amer) POC Glucose (mg/dL) 100 (65-110) mg/dL Random Glucose (75-110) mg/dL Calcium (8.6-10.4) mg/dl Phosphorus (2.5-4.5) mg/dL Magnesium (1.6-2.3) mg/dL Total Bilirubin (0.2-1.3) mg/dL AST (17-59) U/L ALT (21-72) U/L Alkaline Phosphatase (38-126) U/L Total Protein (6.3-8.3) g/dL Albumin (3.5-5.0) g/dL Globulin (2.2-3.9) gm/dL Albumin/Globulin Ratio (1.0-2.1) Urine Myoglobin TNP Laboratory Results - last 24 hr 11/11/17 11/15/17 11/16/17 15:34 18:04 00:07 WBC RBC Hgb Hct MCV MCH MCHC RDW Plt Count MPV Neut % (Auto) Lymph % (Auto) Dickenson % (Auto) Eos % (Auto) Baso % (Auto) Neut # Lymph # Dickenson # Eos # Baso # Neutrophils % (Manual) Band Neutrophils % Lymphocytes % (Manual) Monocytes % (Manual) Platelet Estimate Large Platelets Hypochromasia (manual) Poikilocytosis (manual Anisocytosis (manual) Macrocytosis (manual) Target Cells Puncture Site pCO2 pO2 HCO3 ABG pH ABG Total CO2 ABG O2 Saturation ABG Base Excess ABG Hemoglobin ABG Carboxyhemoglobin POC ABG HHb (Measured) ABG Methemoglobin Suraj Test Hgb O2 Saturation Liter Flow Crit Value Called To Crit Value Called By Crit Value Read Back Blood Gas Notified Time Sodium Potassium Chloride Carbon Dioxide Anion Gap BUN Creatinine Est GFR ( Amer) Est GFR (Non-Af Amer) POC Glucose (mg/dL) 100 116 H Random Glucose Calcium Phosphorus Magnesium Total Bilirubin AST ALT Alkaline Phosphatase Total Protein Albumin Globulin Albumin/Globulin Ratio Urine Myoglobin TNP 11/16/17 11/16/17 11/16/17 05:32 06:18 06:20 WBC 3.7 L RBC 4.35 L Hgb 12.1 Hct 39.2 MCV 90.1 MCH 27.9 MCHC 30.9 L RDW 17.2 H Plt Count 78 L D MPV 8.7 Neut % (Auto) 88.0 H Lymph % (Auto) 5.0 L Dickenson % (Auto) 7.0 Eos % (Auto) 0.0 Baso % (Auto) 0.0 Neut # 3.0 Lymph # 3.3 Dickenson # 0.2 Eos # 0.3 Baso # 0.0 Neutrophils % (Manual) 59 Band Neutrophils % 26 H* Lymphocytes % (Manual) 11 L Monocytes % (Manual) 4 Platelet Estimate Decreased L Large Platelets Present Hypochromasia (manual) Slight Poikilocytosis (manual Slight Anisocytosis (manual) Slight Macrocytosis (manual) Slight Target Cells Slight Puncture Site pCO2 pO2 HCO3 ABG pH ABG Total CO2 ABG O2 Saturation ABG Base Excess ABG Hemoglobin ABG Carboxyhemoglobin POC ABG HHb (Measured) ABG Methemoglobin Suraj Test Hgb O2 Saturation Liter Flow Crit Value Called To Crit Value Called By Crit Value Read Back Blood Gas Notified Time Sodium 138 Potassium 3.8 Chloride 92 L Carbon Dioxide 43 H* Anion Gap 7 L BUN 27 H Creatinine 0.5 L Est GFR ( Amer) > 60 Est GFR (Non-Af Amer) > 60 POC Glucose (mg/dL) 128 H Random Glucose 112 H Calcium 8.3 L Phosphorus 3.1 Magnesium 2.1 Total Bilirubin 0.7 AST 49 ALT 43 Alkaline Phosphatase 50 Total Protein 5.9 L Albumin 2.9 L Globulin 3.1 Albumin/Globulin Ratio 0.9 L Urine Myoglobin 11/16/17 11/16/17 09:20 11:51 WBC RBC Hgb Hct MCV MCH MCHC RDW Plt Count MPV Neut % (Auto) Lymph % (Auto) Dickenson % (Auto) Eos % (Auto) Baso % (Auto) Neut # Lymph # Dickenson # Eos # Baso # Neutrophils % (Manual) Band Neutrophils % Lymphocytes % (Manual) Monocytes % (Manual) Platelet Estimate Large Platelets Hypochromasia (manual) Poikilocytosis (manual Anisocytosis (manual) Macrocytosis (manual) Target Cells Puncture Site R/rad pCO2 71 H* pO2 51 L HCO3 37.2 H ABG pH 7.40 ABG Total CO2 46.2 H ABG O2 Saturation 89.7 L ABG Base Excess 16.0 H ABG Hemoglobin 11.8 ABG Carboxyhemoglobin 2.6 H POC ABG HHb (Measured) 9.9 H ABG Methemoglobin 0.9 Suraj Test Pos Hgb O2 Saturation 86.6 L Liter Flow 1.0 Crit Value Called To Dr ochoa Crit Value Called By [place] travis residential concierge Crit Value Read Back Y Blood Gas Notified Time 925 Sodium Potassium Chloride Carbon Dioxide Anion Gap BUN Creatinine Est GFR ( Amer) Est GFR (Non-Af Amer) POC Glucose (mg/dL) 146 H Random Glucose Calcium Phosphorus Magnesium Total Bilirubin AST ALT Alkaline Phosphatase Total Protein Albumin Globulin Albumin/Globulin Ratio Urine Myoglobin Fingerstick Blood Sugar Results: 146 Review of Systems - Review of Systems Systems not reviewed;Unavailable: Dementia All systems: reviewed and no additional remarkable complaints except (as per HPI ) Critical Care Progress Note - Nutrition Nutrition: Nutrition Category Date Time Status Dysphagia/Modified Consistency Diet [DIET] Diets 11/16/17 Breakfast Active Assessment/Plan - Assessment and Plan (Free Text) Assessment: COPD exacerbation Cardiomyopathy AMS Aspiration Pneumonia H/o HTN H/o CHF H/o DM2 H/o lung cancer Plan: Pt family counseled - Pt is DNR but they wish for him to remain DNI. Neuro: Neurology consulted; expresses low suspicion for meningitis and does not recommend lumbar puncture. MRI w/ and w/o contrast. Cardio: Troponins were negative. Per cardio consult pt has mild LV dysfunction by echo; recommend medical therapy. Small pericardial effusion also noted on echo. Pulm: Hypercapnic respiratory failure and h/o of COPD. Cardio recommends continued pulmonary tx. Pt extubated on 11/13/17. Duoneb 3 ml INH RQ6, methylpredisolone 40 mg IVP Q8, Spiriva 18 mcg INH RQ24 for COPD. On nasal cannula 1 L, and increasing 2 L. ABG: pCO2 79; pO2 59; SEF500.7; pH 7.36. CXR shows interval bibasilar infiltrates, interval right upper lobe patchy infiltrate, and interval bilateral pleural effusions. Suggestive of aspiration. Ordered chest PT Q6. Ordered Vancomycin 1 g IV Q24H Endo: Blood glucose has ranged between 84 and 131. HbgA1C is pending to assess Pt's long-term blood glucose control. GI: tolerating regular diet. : no issues. Echavarria in place. Renal: BUN 23/ Cr 0.5. HCO3 40. I/O: +305ml Heme/Onc: Noted downward trend in platelet count. 136 to 121, to 103. Yesterday platelet count was 106. Today platelet count is 78 H/H: 12.1/39.2 PT: 20.4 PTT: 54 MSK: no issues. ID: WBC of 4.4. Bandemia 26 down from 49 yesterday. Repeating blood culture to assess for infection. HIV 1&2 Antibody Screen is negative. HSV PCR ordered. CXR shows interval bibasilar infiltrates, interval right upper lobe patchy infiltrate, and interval bilateral pleural effusions. Suggestive of aspiration. Ordered chest PT Q6. Ordered Vancomycin 1 g IV Q24H f/u AM CBC Prophylaxis: DVT: Heparin SC Q8. SCDs GI: Protonix 40 mg IVP Daily <Sen Ochoa - Last Filed: 11/16/17 16:30> CCU Objective - Vital Signs / Intake & Output Vital Signs (Last 4 hours): Vital Signs Temp Pulse Resp BP Pulse Ox 11/16/17 16:07 92 H 11 L 134/82 100 11/16/17 16:00 97.4 F L 87 10 L 100 11/16/17 15:52 87 13 141/93 H 98 11/16/17 15:38 94 H 16 110/82 11/16/17 15:36 92 H 16 144/92 H 11/16/17 15:33 96 H 20 11/16/17 14:22 93 H 18 133/83 11/16/17 14:07 92 H 12 122/73 11/16/17 14:00 88 11 L 11/16/17 13:52 91 H 13 122/76 11/16/17 13:37 87 12 135/79 11/16/17 13:22 90 19 137/85 11/16/17 13:08 99 H 12 127/70 11/16/17 13:00 92 H 13 11/16/17 12:52 88 15 116/74 11/16/17 12:38 105 H 13 134/70 11/16/17 12:22 86 11 L 129/78 Intake and Output (Last 8hrs): Intake & Output 11/16/17 11/16/17 11/16/17 06:59 14:59 22:59 Intake Total 330 1270 40 Output Total 160 160 Balance 170 1110 40 Weight 124 lb 11.2 oz Intake: Intake, IV Amount 330 490 40 Left Antecubital 10 Right Forearm 330 480 40 Oral 0 780 Output: Urine 160 160 Urethral (Echavarria) 160 160 - Medications Active Medications: Active Medications Generic Name Dose Route Start Last Admin Trade Name Freq PRN Reason Stop Dose Admin Albuterol/Ipratropium 3 ml 11/11/17 20:00 11/16/17 07:56 Duoneb 3 Mg/0.5 Mg (3 Ml) Ud INH 3 ml RQ6 JUANA Administration Heparin Sodium (Porcine) 5,000 units 11/15/17 06:00 11/16/17 13:46 Heparin SC 5,000 units Q8 JUANA Administration Cefepime HCl 1 gm in 50 mls @ 100 mls/hr 11/14/17 18:00 11/16/17 05:38 Maxipime Iv 1 Gm Premix IVPB 100 mls/hr Q12H JUANA Administration Dextrose/Sodium Chloride 1,000 mls @ 40 mls/hr 11/15/17 11:15 11/16/17 11:48 Dextrose 5%/0.45% Ns 1000 Ml IV 40 mls/hr .Q24H JUANA Administration Vancomycin HCl 1 gm/ Sodium 200 mls @ 166.7 mls/hr 11/16/17 12:00 11/16/17 13 :44 Chloride IVPB 166.7 mls/hr Q24H JUANA Administration Methylprednisolone 40 mg 11/15/17 12:00 11/16/17 11:48 Solu-Medrol IVP 40 mg Q6 JUANA Administration Pantoprazole Sodium 40 mg 11/11/17 17:30 11/16/17 09:30 Protonix Inj IVP 40 mg DAILY JUANA Administration Tiotropium [place] 18 mcg 11/13/17 08:00 11/16/17 07:56 Spiriva INH 18 mcg RQ24 JUANA Administration - Patient Studies Lab Studies: Microbiology Studies 11/11/17 13:54 Blood Culture - Final Blood NO GROWTH AFTER 5 DAYS Gram Stain - Final TEST NOT PERFORMED 11/11/17 14:25 Blood Culture - Final Blood NO GROWTH AFTER 5 DAYS Gram Stain - Final TEST NOT PERFORMED 11/14/17 13:00 Blood Culture - Preliminary Blood NO GROWTH AFTER 48 HOURS 11/14/17 12:30 Blood Culture - Preliminary Blood NO GROWTH AFTER 48 HOURS Lab Studies 11/16/17 11/16/17 11/16/17 Range/Units 11:51 09:20 06:20 WBC (4.8-10.8) K/uL RBC (4.40-5.90) Mil/uL Hgb (12.0-18.0) g/dL Hct (35.0-51.0) % MCV (80.0-94.0) fL MCH (27.0-31.0) pg MCHC (33.0-37.0) g/dL RDW (11.5-14.5) % Plt Count (130-400) K/uL MPV (7.2-11.7) fL Neut % (Auto) (50.0-75.0) % Lymph % (Auto) (20.0-40.0) % Dickenson % (Auto) (0.0-10.0) % Eos % (Auto) (0.0-4.0) % Baso % (Auto) (0.0-2.0) % Neut # (1.8-7.0) K/uL Lymph # (1.0-4.3) K/uL Dickenson # (0.0-0.8) K/uL Eos # (0.0-0.7) K/uL Baso # (0.0-0.2) K/uL Neutrophils % (Manual) (50-75) % Band Neutrophils % (0-2) % Lymphocytes % (Manual) (20-40) % Monocytes % (Manual) (0-10) % Platelet Estimate (NORMAL) Large Platelets Hypochromasia (manual) Poikilocytosis (manual Anisocytosis (manual) Macrocytosis (manual) Target Cells Puncture Site R/rad pCO2 71 H* (35-45) mm/Hg pO2 51 L (80-100) mm/Hg HCO3 37.2 H (21-28) mmol/L ABG pH 7.40 (7.35-7.45) ABG Total CO2 46.2 H (22-28) mmol/L ABG O2 Saturation 89.7 L (95-98) % ABG Base Excess 16.0 H (-2.0-3.0) mmol/L ABG Hemoglobin 11.8 (11.7-17.4) g/dL ABG Carboxyhemoglobin 2.6 H (0.5-1.5) % POC ABG HHb (Measured) 9.9 H (0.0-5.0) % ABG Methemoglobin 0.9 (0.0-3.0) % Suraj Test Pos Hgb O2 Saturation 86.6 L (95.0-98.0) % Liter Flow 1.0 Crit Value Called To Dr ochoa Crit Value Called By [place] travis residential concierge Crit Value Read Back Y Blood Gas Notified Time 925 Sodium 138 (132-148) mmol/L Potassium 3.8 (3.6-5.2) mmol/L Chloride 92 L (98-107) mmol/L Carbon Dioxide 43 H* (22-30) mmol/L Anion Gap 7 L (10-20) BUN 27 H (9-20) mg/dL Creatinine 0.5 L (0.8-1.5) mg/dL Est GFR ( Amer) > 60 Est GFR (Non-Af Amer) > 60 POC Glucose (mg/dL) 146 H (65-110) mg/dL Random Glucose 112 H (75-110) mg/dL Calcium 8.3 L (8.6-10.4) mg/dl Phosphorus 3.1 (2.5-4.5) mg/dL Magnesium 2.1 (1.6-2.3) mg/dL Total Bilirubin 0.7 (0.2-1.3) mg/dL AST 49 (17-59) U/L ALT 43 (21-72) U/L Alkaline Phosphatase 50 (38-126) U/L Total Protein 5.9 L (6.3-8.3) g/dL Albumin 2.9 L (3.5-5.0) g/dL Globulin 3.1 (2.2-3.9) gm/dL Albumin/Globulin Ratio 0.9 L (1.0-2.1) Urine Myoglobin 11/16/17 11/16/17 11/16/17 Range/Units 06:18 05:32 00:07 WBC 3.7 L (4.8-10.8) K/uL RBC 4.35 L (4.40-5.90) Mil/uL Hgb 12.1 (12.0-18.0) g/dL Hct 39.2 (35.0-51.0) % MCV 90.1 (80.0-94.0) fL MCH 27.9 (27.0-31.0) pg MCHC 30.9 L (33.0-37.0) g/dL RDW 17.2 H (11.5-14.5) % Plt Count 78 L D (130-400) K/uL MPV 8.7 (7.2-11.7) fL Neut % (Auto) 88.0 H (50.0-75.0) % Lymph % (Auto) 5.0 L (20.0-40.0) % Dickenson % (Auto) 7.0 (0.0-10.0) % Eos % (Auto) 0.0 (0.0-4.0) % Baso % (Auto) 0.0 (0.0-2.0) % Neut # 3.0 (1.8-7.0) K/uL Lymph # 3.3 (1.0-4.3) K/uL Dickenson # 0.2 (0.0-0.8) K/uL Eos # 0.3 (0.0-0.7) K/uL Baso # 0.0 (0.0-0.2) K/uL Neutrophils % (Manual) 59 (50-75) % Band Neutrophils % 26 H* (0-2) % Lymphocytes % (Manual) 11 L (20-40) % Monocytes % (Manual) 4 (0-10) % Platelet Estimate Decreased L (NORMAL) Large Platelets Present Hypochromasia (manual) Slight Poikilocytosis (manual Slight Anisocytosis (manual) Slight Macrocytosis (manual) Slight Target Cells Slight Puncture Site pCO2 (35-45) mm/Hg pO2 (80-100) mm/Hg HCO3 (21-28) mmol/L ABG pH (7.35-7.45) ABG Total CO2 (22-28) mmol/L ABG O2 Saturation (95-98) % ABG Base Excess (-2.0-3.0) mmol/L ABG Hemoglobin (11.7-17.4) g/dL ABG Carboxyhemoglobin (0.5-1.5) % POC ABG HHb (Measured) (0.0-5.0) % ABG Methemoglobin (0.0-3.0) % Suraj Test Hgb O2 Saturation (95.0-98.0) % Liter Flow Crit Value Called To Crit Value Called By Crit Value Read Back Blood Gas Notified Time Sodium (132-148) mmol/L Potassium (3.6-5.2) mmol/L Chloride (98-107) mmol/L Carbon Dioxide (22-30) mmol/L Anion Gap (10-20) BUN (9-20) mg/dL Creatinine (0.8-1.5) mg/dL Est GFR ( Amer) Est GFR (Non-Af Amer) POC Glucose (mg/dL) 128 H 116 H (65-110) mg/dL Random Glucose (75-110) mg/dL Calcium (8.6-10.4) mg/dl Phosphorus (2.5-4.5) mg/dL Magnesium (1.6-2.3) mg/dL Total Bilirubin (0.2-1.3) mg/dL AST (17-59) U/L ALT (21-72) U/L Alkaline Phosphatase (38-126) U/L Total Protein (6.3-8.3) g/dL Albumin (3.5-5.0) g/dL Globulin (2.2-3.9) gm/dL Albumin/Globulin Ratio (1.0-2.1) Urine Myoglobin 11/15/17 11/11/17 Range/Units 18:04 15:34 WBC (4.8-10.8) K/uL RBC (4.40-5.90) Mil/uL Hgb (12.0-18.0) g/dL Hct (35.0-51.0) % MCV (80.0-94.0) fL MCH (27.0-31.0) pg MCHC (33.0-37.0) g/dL RDW (11.5-14.5) % Plt Count (130-400) K/uL MPV (7.2-11.7) fL Neut % (Auto) (50.0-75.0) % Lymph % (Auto) (20.0-40.0) % Dickenson % (Auto) (0.0-10.0) % Eos % (Auto) (0.0-4.0) % Baso % (Auto) (0.0-2.0) % Neut # (1.8-7.0) K/uL Lymph # (1.0-4.3) K/uL Dickenson # (0.0-0.8) K/uL Eos # (0.0-0.7) K/uL Baso # (0.0-0.2) K/uL Neutrophils % (Manual) (50-75) % Band Neutrophils % (0-2) % Lymphocytes % (Manual) (20-40) % Monocytes % (Manual) (0-10) % Platelet Estimate (NORMAL) Large Platelets Hypochromasia (manual) Poikilocytosis (manual Anisocytosis (manual) Macrocytosis (manual) Target Cells Puncture Site pCO2 (35-45) mm/Hg pO2 (80-100) mm/Hg HCO3 (21-28) mmol/L ABG pH (7.35-7.45) ABG Total CO2 (22-28) mmol/L ABG O2 Saturation (95-98) % ABG Base Excess (-2.0-3.0) mmol/L ABG Hemoglobin (11.7-17.4) g/dL ABG Carboxyhemoglobin (0.5-1.5) % POC ABG HHb (Measured) (0.0-5.0) % ABG Methemoglobin (0.0-3.0) % Suraj Test Hgb O2 Saturation (95.0-98.0) % Liter Flow Crit Value Called To Crit Value Called By Crit Value Read Back Blood Gas Notified Time Sodium (132-148) mmol/L Potassium (3.6-5.2) mmol/L Chloride (98-107) mmol/L Carbon Dioxide (22-30) mmol/L Anion Gap (10-20) BUN (9-20) mg/dL Creatinine (0.8-1.5) mg/dL Est GFR ( Amer) Est GFR (Non-Af Amer) POC Glucose (mg/dL) 100 (65-110) mg/dL Random Glucose (75-110) mg/dL Calcium (8.6-10.4) mg/dl Phosphorus (2.5-4.5) mg/dL Magnesium (1.6-2.3) mg/dL Total Bilirubin (0.2-1.3) mg/dL AST (17-59) U/L ALT (21-72) U/L Alkaline Phosphatase (38-126) U/L Total Protein (6.3-8.3) g/dL Albumin (3.5-5.0) g/dL Globulin (2.2-3.9) gm/dL Albumin/Globulin Ratio (1.0-2.1) Urine Myoglobin TNP Laboratory Results - last 24 hr 11/11/17 11/15/17 11/16/17 15:34 18:04 00:07 WBC RBC Hgb Hct MCV MCH MCHC RDW Plt Count MPV Neut % (Auto) Lymph % (Auto) Dickenson % (Auto) Eos % (Auto) Baso % (Auto) Neut # Lymph # Dickenson # Eos # Baso # Neutrophils % (Manual) Band Neutrophils % Lymphocytes % (Manual) Monocytes % (Manual) Platelet Estimate Large Platelets Hypochromasia (manual) Poikilocytosis (manual Anisocytosis (manual) Macrocytosis (manual) Target Cells Puncture Site pCO2 pO2 HCO3 ABG pH ABG Total CO2 ABG O2 Saturation ABG Base Excess ABG Hemoglobin ABG Carboxyhemoglobin POC ABG HHb (Measured) ABG Methemoglobin Suraj Test Hgb O2 Saturation Liter Flow Crit Value Called To Crit Value Called By Crit Value Read Back Blood Gas Notified Time Sodium Potassium Chloride Carbon Dioxide Anion Gap BUN Creatinine Est GFR ( Amer) Est GFR (Non-Af Amer) POC Glucose (mg/dL) 100 116 H Random Glucose Calcium Phosphorus Magnesium Total Bilirubin AST ALT Alkaline Phosphatase Total Protein Albumin Globulin Albumin/Globulin Ratio Urine Myoglobin TNP 11/16/17 11/16/17 11/16/17 05:32 06:18 06:20 WBC 3.7 L RBC 4.35 L Hgb 12.1 Hct 39.2 MCV 90.1 MCH 27.9 MCHC 30.9 L RDW 17.2 H Plt Count 78 L D MPV 8.7 Neut % (Auto) 88.0 H Lymph % (Auto) 5.0 L Dickenson % (Auto) 7.0 Eos % (Auto) 0.0 Baso % (Auto) 0.0 Neut # 3.0 Lymph # 3.3 Dickenson # 0.2 Eos # 0.3 Baso # 0.0 Neutrophils % (Manual) 59 Band Neutrophils % 26 H* Lymphocytes % (Manual) 11 L Monocytes % (Manual) 4 Platelet Estimate Decreased L Large Platelets Present Hypochromasia (manual) Slight Poikilocytosis (manual Slight Anisocytosis (manual) Slight Macrocytosis (manual) Slight Target Cells Slight Puncture Site pCO2 pO2 HCO3 ABG pH ABG Total CO2 ABG O2 Saturation ABG Base Excess ABG Hemoglobin ABG Carboxyhemoglobin POC ABG HHb (Measured) ABG Methemoglobin Suraj Test Hgb O2 Saturation Liter Flow Crit Value Called To Crit Value Called By Crit Value Read Back Blood Gas Notified Time Sodium 138 Potassium 3.8 Chloride 92 L Carbon Dioxide 43 H* Anion Gap 7 L BUN 27 H Creatinine 0.5 L Est GFR ( Amer) > 60 Est GFR (Non-Af Amer) > 60 POC Glucose (mg/dL) 128 H Random Glucose 112 H Calcium 8.3 L Phosphorus 3.1 Magnesium 2.1 Total Bilirubin 0.7 AST 49 ALT 43 Alkaline Phosphatase 50 Total Protein 5.9 L Albumin 2.9 L Globulin 3.1 Albumin/Globulin Ratio 0.9 L Urine Myoglobin 11/16/17 11/16/17 09:20 11:51 WBC RBC Hgb Hct MCV MCH MCHC RDW Plt Count MPV Neut % (Auto) Lymph % (Auto) Dickenson % (Auto) Eos % (Auto) Baso % (Auto) Neut # Lymph # Dickenson # Eos # Baso # Neutrophils % (Manual) Band Neutrophils % Lymphocytes % (Manual) Monocytes % (Manual) Platelet Estimate Large Platelets Hypochromasia (manual) Poikilocytosis (manual Anisocytosis (manual) Macrocytosis (manual) Target Cells Puncture Site R/rad pCO2 71 H* pO2 51 L HCO3 37.2 H ABG pH 7.40 ABG Total CO2 46.2 H ABG O2 Saturation 89.7 L ABG Base Excess 16.0 H ABG Hemoglobin 11.8 ABG Carboxyhemoglobin 2.6 H POC ABG HHb (Measured) 9.9 H ABG Methemoglobin 0.9 Suraj Test Pos Hgb O2 Saturation 86.6 L Liter Flow 1.0 Crit Value Called To Dr ochoa Crit Value Called By [place] travis residential concierge Crit Value Read Back Y Blood Gas Notified Time 925 Sodium Potassium Chloride Carbon Dioxide Anion Gap BUN Creatinine Est GFR ( Amer) Est GFR (Non-Af Amer) POC Glucose (mg/dL) 146 H Random Glucose Calcium Phosphorus Magnesium Total Bilirubin AST ALT Alkaline Phosphatase Total Protein Albumin Globulin Albumin/Globulin Ratio Urine Myoglobin Critical Care Progress Note - Nutrition Nutrition: Nutrition Category Date Time Status Dysphagia/Modified Consistency Diet [DIET] Diets 11/16/17 Breakfast Active Assessment/Plan (1) Syncope and collapse Current Visit: Yes Status: Acute Attending/Attestation - Attestation I have personally seen and examined this patient.: Yes I have fully participated in the care of the patient.: Yes I have reviewed all pertinent clinical information: Yes Notes (Text): 11/16/17 16:27 I have seen and examined the patient. Medical records, lab studies, and imaging were reviewed by me and a management plan was formulated on multidisciplinary rounds with resident Dr. Britton. I agree with their documented assessment and plan. Patient not clinically improving. Supposedly functioning by himself at home. Obtaining MRI of brain, r/o encephalitis or white matter disease. Patient has also developed aspiration pneumonia, continue Cefepime and add Vancomycin. Critical Care Time 35 minutes. Multi-disciplinary rounds were performed with house staff, nursing, speech therapy, respiratory therapy, pharmacy and nutrition with integrated input from the primary team/attending and other consulting services. The documented time is cumulative and includes review of patient data/exams/labs/chart review and examination of the patient on rounds and throughout the day; time is exclusive of any procedures or teaching time. 11/16/17 16:28
[2017-11-16] MEDS: Vancomycin 1 GM in Sodium Chloride 0.9% 200 ML IVPB SCH (13:44)
[2017-11-16] MEDS ORDERED: Gadodiamide 287 MG/ML VIAL (15ML) IV ONE (15:11)
--- NOTE | 2017-11-16 16:24 | MRI ---
PROCEDURE: MRI BRAIN WITH AND WITHOUT CONTRAST HISTORY: AMS COMPARISON: CT head without contrast 11/11/2017 TECHNIQUE: Multiplanar, multisequence MR images of the brain were obtained with and without intravenous contrast enhancement. 11 cc of Omniscan was injected intravenously FINDINGS: HEMORRHAGE: None DWI: No evidence of an acute or early subacute infarction. BRAIN PARENCHYMA: No mass,mass effect or edema. There is cerebral atrophy present. Multiple 10 to 15 FLAIR hyperintensities present in the centrum semiovale, deep white matter and subcortical cortical white matter, chronic microvascular ischemic changes in this age group are believed most likely. ENHANCEMENT: No abnormal intracranial enhancement. VENTRICLES: No hydrocephalus. Relative prominence commensurate with the degree of atrophy CRANIUM: Unremarkable. ORBITS: Grossly unremarkable. PARANASAL SINUSES/MASTOIDS: Complete opacification right frontal air cells. Ethmoidal sinus mucosal inflammatory changes. Posterior right ethmoidal air cell retention cyst suggested -findings similar VASCULAR SYSTEM: Skull base flow voids intact. OTHER FINDINGS: None . IMPRESSION: No acute infarct. No mass or suspect enhancement. No extra-axial collections Cerebral atrophy and bilateral white matter changes consistent with chronic microvascular disease. Complete opacification- right frontal air cell. Mild moderate ethmoidal sinus inflammatory changes. Posterior right ethmoidal stool retention cyst -7 mm
--- NOTE | 2017-11-16 19:24 | CP.PCM.PN ---
Subjective - Date & Time of Evaluation Date of Evaluation: 11/16/17 Time of Evaluation: 13:40 - Subjective Subjective: clinically same Objective - Vital Signs/Intake and Output Vital Signs (last 24 hours): Temp Pulse Resp BP Pulse Ox 97.4 F L 91 H 14 156/91 H 92 L 11/16/17 16:00 11/16/17 18:52 11/16/17 18:52 11/16/17 18:52 11/16/17 18:52 Intake and Output: 11/16/17 11/17/17 18:59 06:59 Intake Total 1800 Output Total 160 Balance 1640 - Medications Medications: Current Medications Albuterol/Ipratropium (Duoneb 3 Mg/0.5 Mg (3 Ml) Ud) 3 ml INH RQ6 [facility] Last Admin: 11/16/17 07:56 Dose: 3 ml Heparin Sodium (Porcine) (Heparin) 5,000 units SC Q8 [facility] Last Admin: 11/16/17 13:46 Dose: 5,000 units Cefepime HCl (Maxipime Iv 1 Gm Premix) 1 gm in 50 mls @ 100 mls/hr IVPB Q12H [facility] Last Admin: 11/16/17 18:04 Dose: 100 mls/hr Dextrose/Sodium Chloride (Dextrose 5%/0.45% Ns 1000 Ml) 1,000 mls @ 40 mls/hr IV .Q24H [facility] Last Admin: 11/16/17 11:48 Dose: 40 mls/hr Vancomycin HCl 1 gm/ Sodium (Chloride) 200 mls @ 166.7 mls/hr IVPB Q24H [facility] Last Admin: 11/16/17 13:44 Dose: 166.7 mls/hr Methylprednisolone (Solu-Medrol) 40 mg IVP Q6 [facility] Last Admin: 11/16/17 18:05 Dose: 40 mg Pantoprazole Sodium (Protonix Inj) 40 mg IVP DAILY [facility] Last Admin: 11/16/17 09:30 Dose: 40 mg Tiotropium [place] (Spiriva) 18 mcg INH RQ24 [facility] Last Admin: 11/16/17 07:56 Dose: 18 mcg - Labs Labs: 11/16/17 06:18 11/16/17 06:20 PT 20.4 SECONDS (9.7-12.2) H 11/11/17 14:13 INR 1.8 11/11/17 14:13 APTT 54 SECONDS (21-34) H 11/11/17 14:13
[2017-11-17] MEDS: MethylPREDNISolone 40 mg Vial IVP SCH ×5 (00:43→23:45)
[2017-11-17] MEDS: Albuterol-Ipratrop 3 mg / 0.5 (3 ml) UD INH SCH ×4 (01:18→20:45)
--- NOTE | 2017-11-17 05:31 | CP.PCM.PN ---
Subjective - Date & Time of Evaluation Date of Evaluation: 11/17/17 Time of Evaluation: 05:27 - Subjective Subjective: Patient has chronic hoarseness of voice, will do consult ENT to assess vocal cords. B/l effusion, which may contribute to CO2 retention, will diures and do CT chest to check extent of effusion, may need pleural tap, patient may have mechanical sleep apnea from effusion and central poor stimulation, will put routine cpap in the night, and pt may proper sleep studies to determine the exact setting. Objective - Vital Signs/Intake and Output Vital Signs (last 24 hours): Temp Pulse Resp BP Pulse Ox 97.5 F L 85 12 140/80 86 L 11/17/17 04:00 11/17/17 04:22 11/17/17 04:22 11/17/17 04:22 11/17/17 04:22 Intake and Output: 11/16/17 11/17/17 18:59 06:59 Intake Total 1800 360 Output Total 160 Balance 1640 360 - Medications Medications: Current Medications Albuterol/Ipratropium (Duoneb 3 Mg/0.5 Mg (3 Ml) Ud) 3 ml INH RQ6 [facility] Last Admin: 11/17/17 01:18 Dose: 3 ml Heparin Sodium (Porcine) (Heparin) 5,000 units SC Q8 [facility] Last Admin: 11/16/17 21:18 Dose: 5,000 units Cefepime HCl (Maxipime Iv 1 Gm Premix) 1 gm in 50 mls @ 100 mls/hr IVPB Q12H [facility] Last Admin: 11/16/17 18:04 Dose: 100 mls/hr Dextrose/Sodium Chloride (Dextrose 5%/0.45% Ns 1000 Ml) 1,000 mls @ 40 mls/hr IV .Q24H [facility] Last Admin: 11/16/17 11:48 Dose: 40 mls/hr Vancomycin HCl 1 gm/ Sodium (Chloride) 200 mls @ 166.7 mls/hr IVPB Q24H [facility] Last Admin: 11/16/17 13:44 Dose: 166.7 mls/hr Methylprednisolone (Solu-Medrol) 40 mg IVP Q6 [facility] Last Admin: 11/17/17 00:43 Dose: 40 mg Pantoprazole Sodium (Protonix Inj) 40 mg IVP DAILY [facility] Last Admin: 11/16/17 09:30 Dose: 40 mg Tiotropium [place] (Spiriva) 18 mcg INH RQ24 [facility] Last Admin: 11/16/17 07:56 Dose: 18 mcg - Labs Labs: 11/16/17 06:18 11/16/17 06:20 PT 20.4 SECONDS (9.7-12.2) H 11/11/17 14:13 INR 1.8 11/11/17 14:13 APTT 54 SECONDS (21-34) H 11/11/17 14:13
[2017-11-17] MEDS: Cefepime IV 1 gm in Dextrose 1 GM/50 ML BAG IVPB SCH ×2 (06:05→17:11)
[2017-11-17 06:38] LABS: BASO % 0.2 % (0.0-2.0); LYMPH # 0.4 K/uL (1.0-4.3); LYMPH % 9.1 % (20.0-40.0); MEAN CORPUSCULAR HEMOGLOBIN 27.8 pg (27.0-31.0); MEAN CORPUSCULAR HGB CONC 30.6 g/dL (33.0-37.0); MEAN PLATELET VOLUME 8.4 fL (7.2-11.7); MONO # 0.2 K/uL (0.0-0.8); MONO % 4.2 % (0.0-10.0); NEUT # 3.7 K/uL (1.8-7.0); NEUT % 86.5 % (50.0-75.0); NRBC % 0.1 % (0.0-2.0); PLATELET COUNT 94 K/uL (130-400); RBC 4.13 Mil/uL (4.40-5.90); RED CELL DISTRIBUTION WIDTH 17.5 % (11.5-14.5); WHITE BLOOD COUNT 4.3 K/uL (4.8-10.8)
[2017-11-17 07:03] LABS: HEMOGLOBIN 11.5 g/dL (12.0-18.0)
[2017-11-17 07:37] LABS: ALB/GLOB RATIO 0.8 (1.0-2.1); ALBUMIN 2.9 g/dL (3.5-5.0); ALT/SGPT 40 U/L (21-72); AST/SGOT 42 U/L (17-59); BLOOD UREA NITROGEN 34 mg/dL (9-20); CALCIUM 8.3 mg/dl (8.6-10.4); GFR AFRICAN-AMERICAN > 60; GFR NON-AFRICAN AMERICAN > 60; MAGNESIUM 2.2 mg/dL (1.6-2.3)
[2017-11-17] MEDS ORDERED: Iodixanol 320 MG/ML 100 ML BOTTLE IV ONE (07:51)
[2017-11-17 08:49] LABS: ANISOCYTOSIS SLIGHT; BANDS 10 % (0-2); EOSINOPHIL 1 % (0-4); LYMPHOCYTE 11 % (20-40); MONOCYTE 1 % (0-10); NEUTROPHIL 77 % (50-75); PLATELET ESTIMATE DECREASED (NORMAL); POIKILOCYTOSIS SLIGHT; TOTAL CELLS COUNTED 100
[2017-11-17 08:50] LABS: HYPOCHROMIC SLIGHT; TARGET CELLS SLIGHT
--- NOTE | 2017-11-17 09:56 | CT ---
PROCEDURE: CT Chest with contrast (Pulmonary Angiogram) HISTORY: b/l effusion, co2 retention COMPARISON: None available. TECHNIQUE: Axial computed tomography images were obtained of the chest in the pulmonary arterial phase of enhancement. Coronal and sagittal reformatted images were created and reviewed. Intravenous contrast dose: 100 mL Visipaque 320 Radiation dose: Total exam DLP = 376.37 mGy-cm. This CT exam was performed using one or more of the following dose reduction techniques: Automated exposure control, adjustment of the mA and/or kV according to patient size, and/or use of iterative reconstruction technique. FINDINGS: PULMONARY ARTERIES: Unremarkable. No pulmonary embolism. AORTA: No acute findings. No thoracic aortic aneurysm. LUNGS: Bilateral lower lobe compressive atelectasis secondary to pleural effusions. There is also mild subsegmental atelectasis in the posterior segment right upper lobe. There is soft tissue density in the right lower lobe bronchus, likely mucus. . PLEURAL SPACES: Moderate right and small left pleural effusion. No pneumothorax. HEART: Unremarkable. No cardiomegaly. No significant pericardial effusion. LYMPH NODES: No lymphadenopathy. BONES, CHEST WALL: Unremarkable. No fracture or destructive lesion OTHER FINDINGS: Generalized anasarca IMPRESSION: No evidence of pulmonary embolism. Bilateral pleural effusion, right greater than left. Bilateral lower lobe compressive atelectasis and minimal right upper lobe compressive atelectasis. Non occluding soft tissue density in right lower lobe bronchus likely mucus. Generalized anasarca peer
--- NOTE | 2017-11-17 10:25 | CP.PCM.PN ---
Subjective - Date & Time of Evaluation Date of Evaluation: 11/17/17 Time of Evaluation: 09:20 - Subjective Subjective: Patient was seen and evaluated at bedside. Patient is awake, alert, sitting in chair comfortably, on 1L O2 NC. Passed swallow evaluation. Switched to DNR yesterday. Pt has no acute complaints at this time. Objective - Vital Signs/Intake and Output Vital Signs (last 24 hours): Temp Pulse Resp BP Pulse Ox 97.9 F 92 H 12 118/74 75 L 11/17/17 07:34 11/17/17 09:23 11/17/17 09:23 11/17/17 09:23 11/17/17 09:23 Intake and Output: 11/17/17 11/17/17 06:59 18:59 Intake Total 480 490 Output Total 500 Balance -20 490 - Medications Medications: Current Medications Albuterol/Ipratropium (Duoneb 3 Mg/0.5 Mg (3 Ml) Ud) 3 ml INH RQ6 [facility] Last Admin: 11/17/17 07:31 Dose: 3 ml Heparin Sodium (Porcine) (Heparin) 5,000 units SC Q8 [facility] Last Admin: 11/17/17 06:06 Dose: 5,000 units Cefepime HCl (Maxipime Iv 1 Gm Premix) 1 gm in 50 mls @ 100 mls/hr IVPB Q12H [facility] Last Admin: 11/17/17 06:05 Dose: 100 mls/hr Vancomycin HCl 1 gm/ Sodium (Chloride) 200 mls @ 166.7 mls/hr IVPB Q24H [facility] Last Admin: 11/16/17 13:44 Dose: 166.7 mls/hr Dextrose/Sodium Chloride (Dextrose 5%/0.45% Ns 1000 Ml) 1,000 mls @ 60 mls/hr IV .[id number] [facility] Methylprednisolone (Solu-Medrol) 40 mg IVP Q6 [facility] Last Admin: 11/17/17 06:00 Dose: 40 mg Pantoprazole Sodium (Protonix Inj) 40 mg IVP DAILY [facility] Last Admin: 11/17/17 09:33 Dose: 40 mg Tiotropium [place] (Spiriva) 18 mcg INH RQ24 [facility] Last Admin: 11/16/17 07:56 Dose: 18 mcg - Labs Labs: 11/17/17 06:28 11/17/17 06:30 PT 20.4 SECONDS (9.7-12.2) H 11/11/17 14:13 INR 1.8 11/11/17 14:13 APTT 54 SECONDS (21-34) H 11/11/17 14:13 - Head Exam Head Exam: ATRAUMATIC, NORMOCEPHALIC - Eye Exam Eye Exam: Normal appearance - ENT Exam ENT Exam: Mucous Membranes Moist - Neck Exam Neck Exam: Normal Inspection - Respiratory Exam Respiratory Exam: Decreased Breath Sounds Assessment and Plan (1) Acute hypercapnic respiratory failure Assessment & Plan: Hypercapnic respiratory failure secondary to COPD exacerbation Switch to oral prednisone Continue nebulizer treatments BiPAP at night 11/16 CXR- interval bibasilar infiltrates. Interval RUL patchy infiltrate. Follow up to resolution recommended. Status: Acute (2) COPD exacerbation Status: Acute
[2017-11-17] MEDS: Dextrose 5%/0.45% NS 1,000 ML IV SCH (10:26)
--- NOTE | 2017-11-17 10:38 | CT ---
PROCEDURE: CT NECK WITH CONTRAST HISTORY: hoarseness of voice COMPARISON: None TECHNIQUE: CT of the neck with intravenous contrast. Coronal and sagittal reformats generated. Intravenous contrast dose: 100 mL Visipaque 320 Radiation dose: DLP 505.54 mGy-cm This CT exam was performed using one or more of the following dose reduction techniques: Automated exposure control, adjustment of the mA and/or kV according to patient size, and/or use of iterative reconstruction technique. FINDINGS: NASOPHARYNX: Within normal limits. 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 Superiorly the mass also extends lateral to the thyroid cartilage. Posteriorly and inferiorly the mass causes erosion of the right air it annoyed arytenoid with complete destruction of the cricoarytenoid joint. There is also probable subglottic extension on the right. Anterolaterally the mass causes erosion of the inferior an extends beyond right thyroid cartilage. The mass also extends more posteromedially to involve the posterior commissure. GLANDS: Parotid and left submandibular glands unremarkable. There is asymmetric enlargement of the right submandibular gland with no definite fat plane between the inferior pole of the gland gland and right supraglottic mass. 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 CERVICAL SPINE: No fracture or focal lesion. Advanced multilevel degenerative disc disease in the lower cervical spine with degenerative reduced vertebral heights and degenerative retrolisthesis of C5 on C6. VASCULAR STRUCTURES: Unremarkable. OTHER FINDINGS: There are moderate bilateral pleural effusions. 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 Subcentimeter anterior and posterior triangle lymph nodes which do not meet the size criteria for pathologic enlargement but that does not necessarily exclude metastasis. Correlation with PET-CT is advised. Additional comments as described above.
[2017-11-17 10:55] LABS: ARTERIAL BLOOD GAS O2 SAT 89.4 % (95-98); ARTERIAL BLOOD GAS PCO2 77 mm/Hg (35-45); ARTERIAL BLOOD GAS PH 7.37 (7.35-7.45); ARTERIAL BLOOD GAS PO2 50 mm/Hg (80-100); ARTERIAL BLOOD GAS TCO2 46.9 mmol/L (22-28)
[2017-11-17] MEDS: Tiotropium 18 mcg Cap For Inhalation INH SCH (11:21)
[2017-11-17 11:36] LABS: INR 1.1; PROTHROMBIN TIME 13.1 SECONDS (9.7-12.2)
[2017-11-17] MEDS ORDERED: Barium Sulfate for Susp 98% w/w 340g Bottle ONE (11:42)
[2017-11-17] MEDS: Vancomycin 1 GM in Sodium Chloride 0.9% 200 ML IVPB SCH (13:09)
--- NOTE | 2017-11-17 13:16 | RAD ---
PROCEDURE: Modified barium video swallow HISTORY: difficulty swallowing COMPARISON: Not available TECHNIQUE: A modified barium video swallow was performed in conjunction with member of the speech therapy department. Barium mixtures of varying viscosity were administered orally under fluoroscopic monitoring. FINDINGS: There was gross aspiration witnessed with all barium mixtures administered for this examination. Please see full speech therapy report for evaluation. IMPRESSION: Aspiration observed. Please see speech therapy report for full evaluation.
--- NOTE | 2017-11-17 13:31 | PCM.SURG1 ---
Surgeon's Initial Post Op Note - Surgeon's Notes Surgeon: Jez Nicholson MD [employer] Cook: None Type of Anesthesia: Local Pre-Operative Diagnosis: SOB, pleural effusion Operative Findings: large right pleural effusion Post-Operative Diagnosis: same Operation Performed: US guided RIGHT thoracentesis Specimen/Specimens Removed: 950 ml straw colored fluid removed. Estimated Blood Loss: EBL {In ML}: 0 Date of Surgery/Procedure: 11/17/17 Time of Surgery/Procedure: 12:30
--- NOTE | 2017-11-17 15:47 | US ---
PROCEDURE: ULTRASOUND-GUIDED THORACENTESIS CLINICAL HISTORY: 72-year-old male with symptomatic right pleural effusion is referred to Interventional Radiology for ultrasound-guided thoracentesis. COMPARISON: CT angiography of the pulmonary arteries performed earlier the same day. PROCEDURE: 1. Ultrasound-guided right thoracentesis. PRE-PROCEDURE FINDINGS: 1. Large volume pleural effusion. POST-PROCEDURE FINDINGS: 1. No evidence of post-procedural complication. INTERVENTIONAL RADIOLOGIST: Jez Nicholson M.D. (the attending was present for the entire procedure) ANESTHESIA: None. MEDICATION: Lidocaine 1% for local subcutaneous analgesia. COMPLICATIONS: None. PROCEDURE DESCRIPTION AND FINDINGS: The risks, benefits, alternatives and possible complications of the procedure were fully discussed; all questions were answered and informed consent was obtained. The patient was brought into the interventional suite and a pre-procedure 'time-out' was performed. The patient was placed in the seated position. Preliminary ultrasound images of the right hemithorax demonstrate a large simple appearing pleural effusion. The right hemithorax was prepped and draped in the usual sterile fashion. Maximum sterile barrier precautions were maintained throughout the entire procedure. Following subcutaneous infiltration of lidocaine 1% for local analgesia, under ultrasound guidance, a 5 Greek centesis catheter was advanced into the right pleural space with real-time visualization of needle entry. The ultrasound images were permanently recorded and submitted to the PACS. The inner stylet was removed with prompt return of straw-colored fluid. The catheter was attached to gentle vacuum suction. A total of 950 mL of straw-colored fluid was aspirated. The drainage catheter was then removed. A sterile adhesive bandage was placed over the puncture site. The patient tolerated the procedure well without immediate post-procedure complications and was transferred back to the floor in stable condition. IMPRESSION: SUCCESSFUL ULTRASOUND-GUIDED RIGHT THERAPEUTIC THORACENTESIS.
--- NOTE | 2017-11-17 16:30 | CP.PCM.PN ---
Subjective - Date & Time of Evaluation Date of Evaluation: 11/17/17 Time of Evaluation: 13:00 - Subjective Subjective: clinically same Objective - Vital Signs/Intake and Output Vital Signs (last 24 hours): Temp Pulse Resp BP Pulse Ox 97.5 F L 83 12 160/99 H 99 11/17/17 13:10 11/17/17 14:00 11/17/17 14:00 11/17/17 13:52 11/17/17 14:00 Intake and Output: 11/17/17 11/17/17 06:59 18:59 Intake Total 480 1040 Output Total 500 1850 Balance -20 -810 - Medications Medications: Current Medications Albuterol/Ipratropium (Duoneb 3 Mg/0.5 Mg (3 Ml) Ud) 3 ml INH RQ6 [facility] Last Admin: 11/17/17 13:43 Dose: 3 ml Heparin Sodium (Porcine) (Heparin) 5,000 units SC Q8 [facility] Last Admin: 11/17/17 14:22 Dose: Not Given Cefepime HCl (Maxipime Iv 1 Gm Premix) 1 gm in 50 mls @ 100 mls/hr IVPB Q12H [facility] Last Admin: 11/17/17 06:05 Dose: 100 mls/hr Vancomycin HCl 1 gm/ Sodium (Chloride) 200 mls @ 166.7 mls/hr IVPB Q24H [facility] Last Admin: 11/17/17 13:09 Dose: 166.7 mls/hr Dextrose/Sodium Chloride (Dextrose 5%/0.45% Ns 1000 Ml) 1,000 mls @ 60 mls/hr IV .[id number] [facility] Last Admin: 11/17/17 10:26 Dose: 60 mls/hr Methylprednisolone (Solu-Medrol) 40 mg IVP Q6 [facility] Last Admin: 11/17/17 13:10 Dose: 40 mg Pantoprazole Sodium (Protonix Inj) 40 mg IVP DAILY [facility] Last Admin: 11/17/17 09:33 Dose: 40 mg Tiotropium [place] (Spiriva) 18 mcg INH RQ24 [facility] Last Admin: 11/17/17 11:21 Dose: 18 mcg - Labs Labs: 11/17/17 06:28 11/17/17 06:30 PT 13.1 SECONDS (9.7-12.2) H 11/17/17 11:21 INR 1.1 01/05/18 11:21 APTT 58 SECONDS (21-34) H 11/17/17 11:21
--- NOTE | 2017-11-17 17:07 | CP.PCM.PN ---
Subjective - Date & Time of Evaluation Date of Evaluation: 11/17/17 Time of Evaluation: 08:00 - Subjective Subjective: awake alert OOB right glottic mass needs ENT eval/oncology/ trach and peg possible RT cont iv rx Objective - Vital Signs/Intake and Output Vital Signs (last 24 hours): Temp Pulse Resp BP Pulse Ox 97.5 F L 83 12 160/99 H 99 11/17/17 13:10 11/17/17 14:00 11/17/17 14:00 11/17/17 13:52 11/17/17 14:00 Intake and Output: 11/17/17 11/17/17 06:59 18:59 Intake Total 480 1040 Output Total 500 1850 Balance -20 -810 - Medications Medications: Current Medications Albuterol/Ipratropium (Duoneb 3 Mg/0.5 Mg (3 Ml) Ud) 3 ml INH RQ6 [facility] Last Admin: 11/17/17 13:43 Dose: 3 ml Heparin Sodium (Porcine) (Heparin) 5,000 units SC Q8 [facility] Last Admin: 11/17/17 14:22 Dose: Not Given Cefepime HCl (Maxipime Iv 1 Gm Premix) 1 gm in 50 mls @ 100 mls/hr IVPB Q12H [facility] Last Admin: 11/17/17 06:05 Dose: 100 mls/hr Vancomycin HCl 1 gm/ Sodium (Chloride) 200 mls @ 166.7 mls/hr IVPB Q24H [facility] Last Admin: 11/17/17 13:09 Dose: 166.7 mls/hr Dextrose/Sodium Chloride (Dextrose 5%/0.45% Ns 1000 Ml) 1,000 mls @ 60 mls/hr IV .[id number] [facility] Last Admin: 11/17/17 10:26 Dose: 60 mls/hr Methylprednisolone (Solu-Medrol) 40 mg IVP Q6 [facility] Last Admin: 11/17/17 13:10 Dose: 40 mg Pantoprazole Sodium (Protonix Inj) 40 mg IVP DAILY [facility] Last Admin: 11/17/17 09:33 Dose: 40 mg Tiotropium [place] (Spiriva) 18 mcg INH RQ24 [facility] Last Admin: 11/17/17 11:21 Dose: 18 mcg - Labs Labs: 11/17/17 06:28 01/05/18 06:30 PT 13.1 SECONDS (9.7-12.2) H 11/17/17 11:21 INR 1.1 11/17/17 11:21 APTT 58 SECONDS (21-34) H 11/17/17 11:21 - Constitutional Appears: Non-toxic, Chronically Ill - Head Exam Head Exam: NORMOCEPHALIC - Eye Exam Eye Exam: PERRL - ENT Exam ENT Exam: Mucous Membranes Dry - Neck Exam Neck Exam: absent: Lymphadenopathy - Respiratory Exam Respiratory Exam: Decreased Breath Sounds - Cardiovascular Exam Cardiovascular Exam: REGULAR RHYTHM - GI/Abdominal Exam GI & Abdominal Exam: Distended - Rectal Exam Rectal Exam: Deferred - Exam Exam: NORMAL INSPECTION - Extremities Exam Extremities Exam: absent: Full ROM Assessment and Plan (1) Acute hypercapnic respiratory failure Status: Acute (2) Hypothermia Status: Acute (3) Syncope and collapse Status: Acute (4) Toxic metabolic encephalopathy Status: Acute (5) CHF (congestive heart failure) Status: Acute (6) COPD exacerbation Status: Acute (7) Chr obstructive pulmonary disease w/ acute lower respiratory infxn Status: Acute
--- NOTE | 2017-11-17 18:03 | CP.PCM.PN ---
Subjective - Date & Time of Evaluation Date of Evaluation: 11/17/17 Time of Evaluation: 17:50 - Subjective Subjective: patient seen in ICU. 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 needs biopsy Objective - Vital Signs/Intake and Output Vital Signs (last 24 hours): Temp Pulse Resp BP Pulse Ox 97.4 F L 81 10 L 158/98 H 97 11/17/17 16:00 11/17/17 17:00 11/17/17 17:00 11/17/17 16:23 11/17/17 17:00 Intake and Output: 11/17/17 11/17/17 06:59 18:59 Intake Total 480 1220 Output Total 500 1850 Balance -20 -630 - Medications Medications: Current Medications Albuterol/Ipratropium (Duoneb 3 Mg/0.5 Mg (3 Ml) Ud) 3 ml INH RQ6 [facility] Last Admin: 11/17/17 13:43 Dose: 3 ml Heparin Sodium (Porcine) (Heparin) 5,000 units SC Q8 [facility] Last Admin: 11/17/17 14:22 Dose: Not Given Cefepime HCl (Maxipime Iv 1 Gm Premix) 1 gm in 50 mls @ 100 mls/hr IVPB Q12H [facility] Last Admin: 11/17/17 17:11 Dose: 100 mls/hr Vancomycin HCl 1 gm/ Sodium (Chloride) 200 mls @ 166.7 mls/hr IVPB Q24H [facility] Last Admin: 11/17/17 13:09 Dose: 166.7 mls/hr Dextrose/Sodium Chloride (Dextrose 5%/0.45% Ns 1000 Ml) 1,000 mls @ 60 mls/hr IV .[id number] [facility] Last Admin: 11/17/17 10:26 Dose: 60 mls/hr Methylprednisolone (Solu-Medrol) 40 mg IVP Q6 [facility] Last Admin: 11/17/17 17:11 Dose: 40 mg Pantoprazole Sodium (Protonix Inj) 40 mg IVP DAILY [facility] Last Admin: 11/17/17 09:33 Dose: 40 mg Tiotropium [place] (Spiriva) 18 mcg INH RQ24 [facility] Last Admin: 11/17/17 11:21 Dose: 18 mcg - Labs Labs: 11/17/17 06:28 11/17/17 06:30 PT 13.1 SECONDS (9.7-12.2) H 11/17/17 11:21 INR 1.1 11/17/17 11:21 APTT 58 SECONDS (21-34) H 11/17/17 11:21 - Constitutional Appears: Chronically Ill - Head Exam Head Exam: NORMAL INSPECTION - Eye Exam Eye Exam: Normal appearance - ENT Exam ENT Exam: Mucous Membranes Moist - Neck Exam Neck Exam: Full ROM - Respiratory Exam Respiratory Exam: Decreased Breath Sounds - Cardiovascular Exam Cardiovascular Exam: REGULAR RHYTHM - GI/Abdominal Exam GI & Abdominal Exam: Normal Bowel Sounds - Rectal Exam Rectal Exam: Deferred - Extremities Exam Extremities Exam: absent: Pedal Edema - Back Exam Back Exam: NORMAL INSPECTION - Neurological Exam Neurological Exam: Alert - Psychiatric Exam Psychiatric exam: Normal Affect - Skin Skin Exam: Normal Color Assessment and Plan (1) Acute hypercapnic respiratory failure Assessment & Plan: resolved Status: Acute (2) Cardiomyopathy Assessment & Plan: mild LV dysfunction. However there are no regional wall motion abnormalities. There is no cardiovascular contraindication to the planned biopsy. Status: Acute
--- NOTE | 2017-11-17 18:12 | CP.CCUPN ---
<Sarah Britton - Last Filed: 11/17/17 18:09> CCU Subjective - Physician Review Subjective (Free Text): 11/17/17 18:09 Patient seen and examined at bedside. No acute events overnight. Patient resting comfortably in bed with no new complaints at this time. Patient speaks very quietly as voice is very hoarse. CCU Objective - Vital Signs / Intake & Output Vital Signs (Last 4 hours): Vital Signs Temp Pulse Resp BP Pulse Ox 11/17/17 17:00 81 10 L 97 11/17/17 16:23 81 12 158/98 H 96 11/17/17 16:00 97.4 F L 87 11 L 97 11/17/17 15:00 88 9 L 99 11/17/17 14:23 85 12 159/99 H 98 11/17/17 14:22 85 11 L 156/99 H 98 Intake and Output (Last 8hrs): Intake & Output 11/17/17 11/17/17 11/17/17 06:59 14:59 22:59 Intake Total 360 1040 180 Output Total 500 1850 Balance -140 -810 180 Weight 142 lb 12.8 oz Intake: Intake, IV Amount 330 550 180 Left Antecubital 10 Right Forearm 330 540 180 Oral 30 490 0 Output: Chest Tube Drainage 950 Right Posterior Chest 950 Urine 500 900 Condom 500 900 - Physical Exam Head: Positive for: Atraumatic, Normocephalic Pupils: Positive for: PERRL Extroacular Muscles: Positive for: EOMI Conjunctiva: Positive for: Normal Mouth: Positive for: Moist Mucous Membranes Respiratory/Chest: Positive for: Good Air Exchange, Wheezes. Negative for: Respiratory Distress Cardiovascular: Positive for: Regular Rate and Rhythm, Normal S1, S2 Abdomen: Positive for: Normal Bowel Sounds. Negative for: Tenderness, Distention Upper Extremity: Positive for: Normal Inspection Lower Extremity: Positive for: Normal Inspection Neurological: Positive for: GCS=15 Psychiatric: Positive for: Alert - Medications Active Medications: Active Medications Generic Name Dose Route Start Last Admin Trade Name Freq PRN Reason Stop Dose Admin Albuterol/Ipratropium 3 ml 11/11/17 20:00 11/17/17 13:43 Duoneb 3 Mg/0.5 Mg (3 Ml) Ud INH 3 ml RQ6 JUANA Administration Heparin Sodium (Porcine) 5,000 units 11/15/17 06:00 11/17/17 14:22 Heparin SC Not Given Q8 JUANA Cefepime HCl 1 gm in 50 mls @ 100 mls/hr 11/14/17 18:00 11/17/17 17:11 Maxipime Iv 1 Gm Premix IVPB 100 mls/hr Q12H JUNAA Administration Vancomycin HCl 1 gm/ Sodium 200 mls @ 166.7 mls/hr 11/16/17 12:00 11/17/17 13 :09 Chloride IVPB 166.7 mls/hr Q24H JUANA Administration Dextrose/Sodium Chloride 1,000 mls @ 60 mls/hr 11/17/17 10:05 11/17/17 10:26 Dextrose 5%/0.45% Ns 1000 Ml IV 60 mls/hr .[id number] JUANA Administration Methylprednisolone 40 mg 11/15/17 12:00 11/17/17 17:11 Solu-Medrol IVP 40 mg Q6 JUANA Administration Pantoprazole Sodium 40 mg 11/11/17 17:30 11/17/17 09:33 Protonix Inj IVP 40 mg DAILY JUANA Administration Tiotropium Zenia 18 mcg 11/13/17 08:00 11/17/17 11:21 Spiriva INH 18 mcg RQ24 JUANA Administration - Patient Studies Lab Studies: Microbiology Studies 11/17/17 14:53 Gram Stain - Final Pleural Fluid 11/14/17 13:00 Blood Culture - Preliminary Blood NO GROWTH AFTER 3 DAYS 11/14/17 12:30 Blood Culture - Preliminary Blood NO GROWTH AFTER 3 DAYS 11/11/17 13:54 Blood Culture - Final Blood NO GROWTH AFTER 5 DAYS Gram Stain - Final TEST NOT PERFORMED 11/11/17 14:25 Blood Culture - Final Blood NO GROWTH AFTER 5 DAYS Gram Stain - Final TEST NOT PERFORMED Lab Studies 11/17/17 11/17/17 11/17/17 Range/Units 16:09 11:34 11:21 WBC (4.8-10.8) K/uL RBC (4.40-5.90) Mil/uL Hgb (12.0-18.0) g/dL Hct (35.0-51.0) % MCV (80.0-94.0) fL MCH (27.0-31.0) pg MCHC (33.0-37.0) g/dL RDW (11.5-14.5) % Plt Count (130-400) K/uL MPV (7.2-11.7) fL Neut % (Auto) (50.0-75.0) % Lymph % (Auto) (20.0-40.0) % [place] % (Auto) (0.0-10.0) % Eos % (Auto) (0.0-4.0) % Baso % (Auto) (0.0-2.0) % Neut # (1.8-7.0) K/uL Lymph # (1.0-4.3) K/uL [place] # (0.0-0.8) K/uL Eos # (0.0-0.7) K/uL Baso # (0.0-0.2) K/uL Neutrophils % (Manual) (50-75) % Band Neutrophils % (0-2) % Lymphocytes % (Manual) (20-40) % Monocytes % (Manual) (0-10) % Eosinophils % (Manual) (0-4) % Platelet Estimate (NORMAL) Hypochromasia (manual) Poikilocytosis (manual Anisocytosis (manual) Target Cells PT 13.1 H (9.7-12.2) SECONDS INR 1.1 APTT 58 H (21-34) SECONDS Puncture Site pCO2 (35-45) mm/Hg pO2 (80-100) mm/Hg HCO3 (21-28) mmol/L ABG pH (7.35-7.45) ABG Total CO2 (22-28) mmol/L ABG O2 Saturation (95-98) % ABG Base Excess (-2.0-3.0) mmol/L ABG Hemoglobin (11.7-17.4) g/dL ABG Carboxyhemoglobin (0.5-1.5) % POC ABG HHb (Measured) (0.0-5.0) % ABG Methemoglobin (0.0-3.0) % Suraj Test A-a O2 Difference mm/Hg Respiratory Index Hgb O2 Saturation (95.0-98.0) % FiO2 % Crit Value Called To Crit Value Called By Crit Value Read Back Blood Gas Notified Time Sodium (132-148) mmol/L Potassium (3.6-5.2) mmol/L Chloride (98-107) mmol/L Carbon Dioxide (22-30) mmol/L Anion Gap (10-20) BUN (9-20) mg/dL Creatinine (0.8-1.5) mg/dL Est GFR ( Amer) Est GFR (Non-Af Amer) POC Glucose (mg/dL) 86 136 H (65-110) mg/dL Random Glucose (75-110) mg/dL Calcium (8.6-10.4) mg/dl Phosphorus (2.5-4.5) mg/dL Magnesium (1.6-2.3) mg/dL Total Bilirubin (0.2-1.3) mg/dL AST (17-59) U/L ALT (21-72) U/L Alkaline Phosphatase (38-126) U/L Total Protein (6.3-8.3) g/dL Albumin (3.5-5.0) g/dL Globulin (2.2-3.9) gm/dL Albumin/Globulin Ratio (1.0-2.1) 11/17/17 11/17/17 11/17/17 Range/Units 10:48 07:28 06:30 WBC (4.8-10.8) K/uL RBC (4.40-5.90) Mil/uL Hgb (12.0-18.0) g/dL Hct (35.0-51.0) % MCV (80.0-94.0) fL MCH (27.0-31.0) pg MCHC (33.0-37.0) g/dL RDW (11.5-14.5) % Plt Count (130-400) K/uL MPV (7.2-11.7) fL Neut % (Auto) (50.0-75.0) % Lymph % (Auto) (20.0-40.0) % [place] % (Auto) (0.0-10.0) % Eos % (Auto) (0.0-4.0) % Baso % (Auto) (0.0-2.0) % Neut # (1.8-7.0) K/uL Lymph # (1.0-4.3) K/uL [place] # (0.0-0.8) K/uL Eos # (0.0-0.7) K/uL Baso # (0.0-0.2) K/uL Neutrophils % (Manual) (50-75) % Band Neutrophils % (0-2) % Lymphocytes % (Manual) (20-40) % Monocytes % (Manual) (0-10) % Eosinophils % (Manual) (0-4) % Platelet Estimate (NORMAL) Hypochromasia (manual) Poikilocytosis (manual Anisocytosis (manual) Target Cells PT (9.7-12.2) SECONDS INR APTT (21-34) SECONDS Puncture Site Lb pCO2 77 H* (35-45) mm/Hg pO2 50 L (80-100) mm/Hg HCO3 37.0 H (21-28) mmol/L ABG pH 7.37 (7.35-7.45) ABG Total CO2 46.9 H (22-28) mmol/L ABG O2 Saturation 89.4 L (95-98) % ABG Base Excess 15.8 H (-2.0-3.0) mmol/L ABG Hemoglobin 12.0 (11.7-17.4) g/dL ABG Carboxyhemoglobin 2.6 H (0.5-1.5) % POC ABG HHb (Measured) 10.2 H (0.0-5.0) % ABG Methemoglobin 0.9 (0.0-3.0) % Suraj Test Na A-a O2 Difference 3.0 mm/Hg Respiratory Index 0.1 Hgb O2 Saturation 86.2 L (95.0-98.0) % FiO2 21.0 % Crit Value Called To Dr ochoa Crit Value Called By [place] [facility] Crit Value Read Back Y Blood Gas Notified Time 1055 Sodium 135 (132-148) mmol/L Potassium 4.4 (3.6-5.2) mmol/L Chloride 92 L (98-107) mmol/L Carbon Dioxide 43 H* (22-30) mmol/L Anion Gap 4 L (10-20) BUN 34 H (9-20) mg/dL Creatinine 0.6 L (0.8-1.5) mg/dL Est GFR ( Amer) > 60 Est GFR (Non-Af Amer) > 60 POC Glucose (mg/dL) 112 H (65-110) mg/dL Random Glucose 104 (75-110) mg/dL Calcium 8.3 L (8.6-10.4) mg/dl Phosphorus 3.2 (2.5-4.5) mg/dL Magnesium 2.2 (1.6-2.3) mg/dL Total Bilirubin 0.7 (0.2-1.3) mg/dL AST 42 (17-59) U/L ALT 40 (21-72) U/L Alkaline Phosphatase 49 (38-126) U/L Total Protein 6.4 (6.3-8.3) g/dL Albumin 2.9 L (3.5-5.0) g/dL Globulin 3.5 (2.2-3.9) gm/dL Albumin/Globulin Ratio 0.8 L (1.0-2.1) 11/17/17 11/16/17 Range/Units 06:28 21:14 WBC 4.3 L (4.8-10.8) K/uL RBC 4.13 L (4.40-5.90) Mil/uL Hgb 11.5 L (12.0-18.0) g/dL Hct 37.6 (35.0-51.0) % MCV 91.0 (80.0-94.0) fL MCH 27.8 (27.0-31.0) pg MCHC 30.6 L (33.0-37.0) g/dL RDW 17.5 H (11.5-14.5) % Plt Count 94 L (130-400) K/uL MPV 8.4 (7.2-11.7) fL Neut % (Auto) 86.5 H (50.0-75.0) % Lymph % (Auto) 9.1 L (20.0-40.0) % [place] % (Auto) 4.2 (0.0-10.0) % Eos % (Auto) 0.0 (0.0-4.0) % Baso % (Auto) 0.2 (0.0-2.0) % Neut # 3.7 (1.8-7.0) K/uL Lymph # 0.4 L (1.0-4.3) K/uL [place] # 0.2 (0.0-0.8) K/uL Eos # 0.0 (0.0-0.7) K/uL Baso # 0.0 (0.0-0.2) K/uL Neutrophils % (Manual) 77 H (50-75) % Band Neutrophils % 10 H (0-2) % Lymphocytes % (Manual) 11 L (20-40) % Monocytes % (Manual) 1 (0-10) % Eosinophils % (Manual) 1 (0-4) % Platelet Estimate Decreased L (NORMAL) Hypochromasia (manual) Slight Poikilocytosis (manual Slight Anisocytosis (manual) Slight Target Cells Slight PT (9.7-12.2) SECONDS INR APTT (21-34) SECONDS Puncture Site pCO2 (35-45) mm/Hg pO2 (80-100) mm/Hg HCO3 (21-28) mmol/L ABG pH (7.35-7.45) ABG Total CO2 (22-28) mmol/L ABG O2 Saturation (95-98) % ABG Base Excess (-2.0-3.0) mmol/L ABG Hemoglobin (11.7-17.4) g/dL ABG Carboxyhemoglobin (0.5-1.5) % POC ABG HHb (Measured) (0.0-5.0) % ABG Methemoglobin (0.0-3.0) % Suraj Test A-a O2 Difference mm/Hg Respiratory Index Hgb O2 Saturation (95.0-98.0) % FiO2 % Crit Value Called To Crit Value Called By Crit Value Read Back Blood Gas Notified Time Sodium (132-148) mmol/L Potassium (3.6-5.2) mmol/L Chloride (98-107) mmol/L Carbon Dioxide (22-30) mmol/L Anion Gap (10-20) BUN (9-20) mg/dL Creatinine (0.8-1.5) mg/dL Est GFR ( Amer) Est GFR (Non-Af Amer) POC Glucose (mg/dL) 154 H (65-110) mg/dL Random Glucose (75-110) mg/dL Calcium (8.6-10.4) mg/dl Phosphorus (2.5-4.5) mg/dL Magnesium (1.6-2.3) mg/dL Total Bilirubin (0.2-1.3) mg/dL AST (17-59) U/L ALT (21-72) U/L Alkaline Phosphatase (38-126) U/L Total Protein (6.3-8.3) g/dL Albumin (3.5-5.0) g/dL Globulin (2.2-3.9) gm/dL Albumin/Globulin Ratio (1.0-2.1) Laboratory Results - last 24 hr 11/16/17 11/17/17 11/17/17 21:14 06:28 06:30 WBC 4.3 L RBC 4.13 L Hgb 11.5 L Hct 37.6 MCV 91.0 MCH 27.8 MCHC 30.6 L RDW 17.5 H Plt Count 94 L MPV 8.4 Neut % (Auto) 86.5 H Lymph % (Auto) 9.1 L [place] % (Auto) 4.2 Eos % (Auto) 0.0 Baso % (Auto) 0.2 Neut # 3.7 Lymph # 0.4 L [place] # 0.2 Eos # 0.0 Baso # 0.0 Neutrophils % (Manual) 77 H Band Neutrophils % 10 H Lymphocytes % (Manual) 11 L Monocytes % (Manual) 1 Eosinophils % (Manual) 1 Platelet Estimate Decreased L Hypochromasia (manual) Slight Poikilocytosis (manual Slight Anisocytosis (manual) Slight Target Cells Slight PT INR APTT Puncture Site pCO2 pO2 HCO3 ABG pH ABG Total CO2 ABG O2 Saturation ABG Base Excess ABG Hemoglobin ABG Carboxyhemoglobin POC ABG HHb (Measured) ABG Methemoglobin Suraj Test A-a O2 Difference Respiratory Index Hgb O2 Saturation FiO2 Crit Value Called To Crit Value Called By Crit Value Read Back Blood Gas Notified Time Sodium 135 Potassium 4.4 Chloride 92 L Carbon Dioxide 43 H* Anion Gap 4 L BUN 34 H Creatinine 0.6 L Est GFR ( Amer) > 60 Est GFR (Non-Af Amer) > 60 POC Glucose (mg/dL) 154 H Random Glucose 104 Calcium 8.3 L Phosphorus 3.2 Magnesium 2.2 Total Bilirubin 0.7 AST 42 ALT 40 Alkaline Phosphatase 49 Total Protein 6.4 Albumin 2.9 L Globulin 3.5 Albumin/Globulin Ratio 0.8 L 11/17/17 11/17/17 11/17/17 07:28 10:48 11:21 WBC RBC Hgb Hct MCV MCH MCHC RDW Plt Count MPV Neut % (Auto) Lymph % (Auto) [place] % (Auto) Eos % (Auto) Baso % (Auto) Neut # Lymph # [place] # Eos # Baso # Neutrophils % (Manual) Band Neutrophils % Lymphocytes % (Manual) Monocytes % (Manual) Eosinophils % (Manual) Platelet Estimate Hypochromasia (manual) Poikilocytosis (manual Anisocytosis (manual) Target Cells PT 13.1 H INR 1.1 APTT 58 H Puncture Site Lb pCO2 77 H* pO2 50 L HCO3 37.0 H ABG pH 7.37 ABG Total CO2 46.9 H ABG O2 Saturation 89.4 L ABG Base Excess 15.8 H ABG Hemoglobin 12.0 ABG Carboxyhemoglobin 2.6 H POC ABG HHb (Measured) 10.2 H ABG Methemoglobin 0.9 Suraj Test Na A-a O2 Difference 3.0 Respiratory Index 0.1 Hgb O2 Saturation 86.2 L FiO2 21.0 Crit Value Called To Dr ochoa Crit Value Called By [place] [facility] Crit Value Read Back Y Blood Gas Notified Time 1055 Sodium Potassium Chloride Carbon Dioxide Anion Gap BUN Creatinine Est GFR ( Amer) Est GFR (Non-Af Amer) POC Glucose (mg/dL) 112 H Random Glucose Calcium Phosphorus Magnesium Total Bilirubin AST ALT Alkaline Phosphatase Total Protein Albumin Globulin Albumin/Globulin Ratio 11/17/17 11/17/17 11:34 16:09 WBC RBC Hgb Hct MCV MCH MCHC RDW Plt Count MPV Neut % (Auto) Lymph % (Auto) [place] % (Auto) Eos % (Auto) Baso % (Auto) Neut # Lymph # [place] # Eos # Baso # Neutrophils % (Manual) Band Neutrophils % Lymphocytes % (Manual) Monocytes % (Manual) Eosinophils % (Manual) Platelet Estimate Hypochromasia (manual) Poikilocytosis (manual Anisocytosis (manual) Target Cells PT INR APTT Puncture Site pCO2 pO2 HCO3 ABG pH ABG Total CO2 ABG O2 Saturation ABG Base Excess ABG Hemoglobin ABG Carboxyhemoglobin POC ABG HHb (Measured) ABG Methemoglobin Suraj Test A-a O2 Difference Respiratory Index Hgb O2 Saturation FiO2 Crit Value Called To Crit Value Called By Crit Value Read Back Blood Gas Notified Time Sodium Potassium Chloride Carbon Dioxide Anion Gap BUN Creatinine Est GFR ( Amer) Est GFR (Non-Af Amer) POC Glucose (mg/dL) 136 H 86 Random Glucose Calcium Phosphorus Magnesium Total Bilirubin AST ALT Alkaline Phosphatase Total Protein Albumin Globulin Albumin/Globulin Ratio Fingerstick Blood Sugar Results: 112 Review of Systems - Review of Systems All systems: reviewed and no additional remarkable complaints except (as per HPI ) Critical Care Progress Note - Nutrition Nutrition: Nutrition Category Date Time Status NPO Diet [DIET] Diets 11/17/17 Lunch Active Assessment/Plan - Assessment and Plan (Free Text) Assessment: Pleural effusion Vocal cord mass COPD exacerbation Cardiomyopathy AMS Aspiration Pneumonia H/o hoarseness H/o HTN H/o CHF H/o DM2 H/o lung cancer Plan: Pt transferred to regular floor. Pt is DNR not DNI Neuro: Pt aao x3. MRI completed as per neurologist recommendation 11/16/17 No mass, no extra-axial collections. Cerebral atrophy and bilateral white matter changes consistent with chronic microvascular disease. Cardio: Troponins were negative. Per cardio consult pt has mild LV dysfunction by echo; recommend medical therapy. Small pericardial effusion also noted on echo. Pulm: Hypercapnic respiratory failure and h/o of COPD. Dr. Nation recommended PM CPAP Cardio recommends continued pulmonary tx - Chest PT Q6H Pt extubated on 11/13/17. Duoneb 3 ml INH RQ6, methylpredisolone 40 mg IVP Q8, Spiriva 18 mcg INH RQ24 for COPD. On nasal cannula 1 L sating 97% AB11/17/17 pCO2 77; pO2 50; HCO 37.2; pH 7.37. CXR 11/16/17 shows interval bibasilar infiltrates, interval right upper lobe patchy infiltrate, and interval bilateral pleural effusions. Suggestive of aspiration. Vancomycin [address] chest 11/17/17 shows no evidence of PE. Evidence of bilateral pleural effusion right greater than left, bilateral lower lobe compressive atelectasis and minimal right upper lobe compression atelectasis. 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 Correlation with PET- CT advised ENT Dr. Dia consulted: Pt is scheduled for biopsy Monday11/21/17 Barium swallow 11/17/17: failed, aspiration was observed. Pt now NPO Endo: Blood glucose has ranged between 84 and 131. 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 Horner consulted for peg tube placement Pt NPO : no issues. Condom catheter in place Renal: BUN 34/ Cr 0.6. I/O: -810ml I: 550ml IV 490ml oral O: 950ml thoracentesis 900ml condom catheter Dextrose/ sodium chloride 1000mls @ 60 mls/hr Heme/Onc: Noted downward trend in platelet count. 136 to 121, to 103. Yesterday platelet count was 106. Today platelet count is 78 H/H: 12.1/39.2 PT: 20.4 PTT: 54 MSK: generalized weakness PT eval and treat routine ID: WBC of 4.3. Bandemia 10 down from 26 yesterday. Repeating blood culture to assess for infection. HIV 1&2 Antibody Screen is negative. HSV PCR ordered. CXR shows interval bibasilar infiltrates, interval right upper lobe patchy infiltrate, and interval bilateral pleural effusions. Suggestive of aspiration. CT chest 11/17/17 bilateral pleural effusion right greater than left. Ordered chest PT Q6. Ordered Vancomycin 1 g IV Q24H f/u AM CBC. Prophylaxis: DVT: Heparin SC Q8. SCDs GI: Protonix 40 mg IVP Daily <Sen Ochoa - Last Filed: 11/18/17 08:10> CCU Objective - Vital Signs / Intake & Output Intake and Output (Last 8hrs): Intake & Output 11/17/17 11/18/17 11/18/17 22:59 06:59 14:59 Intake Total 470 470 60 Output Total 550 Balance 470 470 -490 Weight 143 lb 8 oz Intake: Intake, IV Amount 470 470 60 Right Forearm 470 470 60 Oral 0 0 0 Output: Urine 550 Condom 550 Other: # Voids Urine, Voided 1 - Medications Active Medications: Active Medications Generic Name Dose Route Start Last Admin Trade Name Freq PRN Reason Stop Dose Admin Albuterol/Ipratropium 3 ml 11/11/17 20:00 11/18/17 07:52 Duoneb 3 Mg/0.5 Mg (3 Ml) Ud INH 3 ml RQ6 JUANA Administration Heparin Sodium (Porcine) 5,000 units 11/18/17 14:00 Heparin SC Q8 JUANA Cefepime HCl 1 gm in 50 mls @ 100 mls/hr 11/14/17 18:00 11/18/17 05:35 Maxipime Iv 1 Gm Premix IVPB 100 mls/hr Q12H JUANA Administration Vancomycin HCl 1 gm/ Sodium 200 mls @ 166.7 mls/hr 11/16/17 12:00 11/17/17 13 :09 Chloride IVPB 166.7 mls/hr Q24H JUANA Administration Dextrose/Sodium Chloride 1,000 mls @ 60 mls/hr 11/17/17 10:05 11/18/17 07:35 Dextrose 5%/0.45% Ns 1000 Ml IV Not Given .[id number] JUANA Methylprednisolone 40 mg 11/15/17 12:00 11/18/17 05:36 Solu-Medrol IVP 40 mg Q6 JUANA Administration Pantoprazole Sodium 40 mg 11/11/17 17:30 11/17/17 09:33 Protonix Inj IVP 40 mg DAILY JUANA Administration Tiotropium Zenia 18 mcg 11/13/17 08:00 11/18/17 07:52 Spiriva INH 18 mcg RQ24 JUANA Administration - Patient Studies Lab Studies: Microbiology Studies 11/17/17 14:53 Gram Stain - Final Pleural Fluid 11/14/17 13:00 Blood Culture - Preliminary Blood NO GROWTH AFTER 3 DAYS 11/14/17 12:30 Blood Culture - Preliminary Blood NO GROWTH AFTER 3 DAYS Lab Studies 11/18/17 11/17/17 11/17/17 Range/Units 07:32 22:39 16:09 Neutrophils % (Manual) (50-75) % Band Neutrophils % (0-2) % Lymphocytes % (Manual) (20-40) % Monocytes % (Manual) (0-10) % Eosinophils % (Manual) (0-4) % Platelet Estimate (NORMAL) Hypochromasia (manual) Poikilocytosis (manual Anisocytosis (manual) Target Cells PT (9.7-12.2) SECONDS INR APTT (21-34) SECONDS Puncture Site pCO2 (35-45) mm/Hg pO2 (80-100) mm/Hg HCO3 (21-28) mmol/L ABG pH (7.35-7.45) ABG Total CO2 (22-28) mmol/L ABG O2 Saturation (95-98) % ABG Base Excess (-2.0-3.0) mmol/L ABG Hemoglobin (11.7-17.4) g/dL ABG Carboxyhemoglobin (0.5-1.5) % POC ABG HHb (Measured) (0.0-5.0) % ABG Methemoglobin (0.0-3.0) % Suraj Test A-a O2 Difference mm/Hg Respiratory Index Hgb O2 Saturation (95.0-98.0) % FiO2 % Crit Value Called To Crit Value Called By Crit Value Read Back Blood Gas Notified Time POC Glucose (mg/dL) 125 H 125 H 86 (65-110) mg/dL 11/17/17 11/17/17 11/17/17 Range/Units 11:34 11:21 10:48 Neutrophils % (Manual) (50-75) % Band Neutrophils % (0-2) % Lymphocytes % (Manual) (20-40) % Monocytes % (Manual) (0-10) % Eosinophils % (Manual) (0-4) % Platelet Estimate (NORMAL) Hypochromasia (manual) Poikilocytosis (manual Anisocytosis (manual) Target Cells PT 13.1 H (9.7-12.2) SECONDS INR 1.1 APTT 58 H (21-34) SECONDS Puncture Site Lb pCO2 77 H* (35-45) mm/Hg pO2 50 L (80-100) mm/Hg HCO3 37.0 H (21-28) mmol/L ABG pH 7.37 (7.35-7.45) ABG Total CO2 46.9 H (22-28) mmol/L ABG O2 Saturation 89.4 L (95-98) % ABG Base Excess 15.8 H (-2.0-3.0) mmol/L ABG Hemoglobin 12.0 (11.7-17.4) g/dL ABG Carboxyhemoglobin 2.6 H (0.5-1.5) % POC ABG HHb (Measured) 10.2 H (0.0-5.0) % ABG Methemoglobin 0.9 (0.0-3.0) % Suraj Test Na A-a O2 Difference 3.0 mm/Hg Respiratory Index 0.1 Hgb O2 Saturation 86.2 L (95.0-98.0) % FiO2 21.0 % Crit Value Called To Dr ochoa Crit Value Called By [place] [facility] Crit Value Read Back Y Blood Gas Notified Time 1055 POC Glucose (mg/dL) 136 H (65-110) mg/dL 11/17/17 Range/Units 06:28 Neutrophils % (Manual) 77 H (50-75) % Band Neutrophils % 10 H (0-2) % Lymphocytes % (Manual) 11 L (20-40) % Monocytes % (Manual) 1 (0-10) % Eosinophils % (Manual) 1 (0-4) % Platelet Estimate Decreased L (NORMAL) Hypochromasia (manual) Slight Poikilocytosis (manual Slight Anisocytosis (manual) Slight Target Cells Slight PT (9.7-12.2) SECONDS INR APTT (21-34) SECONDS Puncture Site pCO2 (35-45) mm/Hg pO2 (80-100) mm/Hg HCO3 (21-28) mmol/L ABG pH (7.35-7.45) ABG Total CO2 (22-28) mmol/L ABG O2 Saturation (95-98) % ABG Base Excess (-2.0-3.0) mmol/L ABG Hemoglobin (11.7-17.4) g/dL ABG Carboxyhemoglobin (0.5-1.5) % POC ABG HHb (Measured) (0.0-5.0) % ABG Methemoglobin (0.0-3.0) % Suraj Test A-a O2 Difference mm/Hg Respiratory Index Hgb O2 Saturation (95.0-98.0) % FiO2 % Crit Value Called To Crit Value Called By Crit Value Read Back Blood Gas Notified Time POC Glucose (mg/dL) (65-110) mg/dL Laboratory Results - last 24 hr 11/17/17 11/17/17 11/17/17 06:28 10:48 11:21 Neutrophils % (Manual) 77 H Band Neutrophils % 10 H Lymphocytes % (Manual) 11 L Monocytes % (Manual) 1 Eosinophils % (Manual) 1 Platelet Estimate Decreased L Hypochromasia (manual) Slight Poikilocytosis (manual Slight Anisocytosis (manual) Slight Target Cells Slight PT 13.1 H INR 1.1 APTT 58 H Puncture Site Lb pCO2 77 H* pO2 50 L HCO3 37.0 H ABG pH 7.37 ABG Total CO2 46.9 H ABG O2 Saturation 89.4 L ABG Base Excess 15.8 H ABG Hemoglobin 12.0 ABG Carboxyhemoglobin 2.6 H POC ABG HHb (Measured) 10.2 H ABG Methemoglobin 0.9 Suraj Test Na A-a O2 Difference 3.0 Respiratory Index 0.1 Hgb O2 Saturation 86.2 L FiO2 21.0 Crit Value Called To Dr ochoa Crit Value Called By [facility] Crit Value Read Back Y Blood Gas Notified Time 1055 POC Glucose (mg/dL) 11/17/17 11/17/17 11/17/17 11:34 16:09 22:39 Neutrophils % (Manual) Band Neutrophils % Lymphocytes % (Manual) Monocytes % (Manual) Eosinophils % (Manual) Platelet Estimate Hypochromasia (manual) Poikilocytosis (manual Anisocytosis (manual) Target Cells PT INR APTT Puncture Site pCO2 pO2 HCO3 ABG pH ABG Total CO2 ABG O2 Saturation ABG Base Excess ABG Hemoglobin ABG Carboxyhemoglobin POC ABG HHb (Measured) ABG Methemoglobin Suraj Test A-a O2 Difference Respiratory Index Hgb O2 Saturation FiO2 Crit Value Called To Crit Value Called By Crit Value Read Back Blood Gas Notified Time POC Glucose (mg/dL) 136 H 86 125 H 11/18/17 07:32 Neutrophils % (Manual) Band Neutrophils % Lymphocytes % (Manual) Monocytes % (Manual) Eosinophils % (Manual) Platelet Estimate Hypochromasia (manual) Poikilocytosis (manual Anisocytosis (manual) Target Cells PT INR APTT Puncture Site pCO2 pO2 HCO3 ABG pH ABG Total CO2 ABG O2 Saturation ABG Base Excess ABG Hemoglobin ABG Carboxyhemoglobin POC ABG HHb (Measured) ABG Methemoglobin Suraj Test A-a O2 Difference Respiratory Index Hgb O2 Saturation FiO2 Crit Value Called To Crit Value Called By Crit Value Read Back Blood Gas Notified Time POC Glucose (mg/dL) 125 H Critical Care Progress Note - Nutrition Nutrition: Nutrition Category Date Time Status NPO Diet [DIET] Diets 11/17/17 Lunch Active Assessment/Plan (1) Syncope and collapse Current Visit: Yes Status: Acute Attending/Attestation - Attestation I have personally seen and examined this patient.: Yes I have fully participated in the care of the patient.: Yes I have reviewed all pertinent clinical information: Yes Notes (Text): 11/18/17 08:07 I have seen and examined the patient. Medical records, lab studies, and imaging were reviewed by me and a management plan was formulated on multidisciplinary rounds with resident Dr. Britton. I agree with their documented assessment and plan. Patient's mental status markedly improved. Treating aspiration pneumonia, continue abx. 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 Dia - ENT. Patient will need PEG placement for feeding while pharyngeal/laryngeal mass worked up. Clinically stable for downgrade to the floors. Discussed case with Dr. Mushtaq Denton -PMLayo. Critical Care Time 35 minutes. Multi-disciplinary rounds were performed with house staff, nursing, speech therapy, respiratory therapy, pharmacy and nutrition with integrated input from the primary team/attending and other consulting services. The documented time is cumulative and includes review of patient data/exams/labs/chart review and examination of the patient on rounds and throughout the day; time is exclusive of any procedures or teaching time.
--- NOTE | 2017-11-17 20:05 | CP.PCM.CON ---
<Charlene Miller - Last Filed: 11/17/17 20:11> History of Present Illness - History of Present Illness History of Present Illness: GI Fellow PGY4 Consult Note This is a 72yM with pmhx of HTN and COPD presented with altered mental status found to be in hypercapnic respiratory failure and intubated. Pt was subsequently extubated 11/13/17 and being treated for PNA likely aspiration PNA. Pt has also been hoarse so had a CT neck. 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 ENT Dr. Dia consulted: Pt is scheduled for biopsy Monday11/21/17. Pt had an Barium swallow 11/17/17: failed, aspiration was observed. Pt is NPO. GI was consulted for possible PEG. No reported endoscopic hx. ROS: A 12pt ROS was negative except above PmHx: As stated in HPI PsHx: Unable to recall SHx: former smoker, no etoh or drugs FHx: denies colon cancer Past Patient History - Past Medical History & Family History Past Medical History?: Yes - Past Social History Smoking Status: Former Smoker - CARDIAC Hx Congestive Heart Failure: Yes Hx Hypertension: Yes - PULMONARY Hx Chronic Obstructive Pulmonary Disease (COPD): Yes - NEUROLOGICAL Hx Neurological Disorder: Yes Hx Dizziness: Yes - ENDOCRINE/METABOLIC Hx Diabetes Mellitus Type 2: Yes - MUSCULOSKELETAL/RHEUMATOLOGICAL Hx Falls: Yes - GASTROINTESTINAL Hx Gastrointestinal Disorders: No - GENITOURINARY/GYNECOLOGICAL Hx Genitourinary Disorders: No - PSYCHIATRIC Hx Substance Use: No - SURGICAL HISTORY Hx Surgeries: No - ANESTHESIA Hx Anesthesia: No Meds Allergies/Adverse Reactions: Allergies Allergy/AdvReac Type Severity Reaction Status Date / Time No Known Allergies Allergy Verified 11/11/17 13:45 - Medications Medications: Current Medications Albuterol/Ipratropium (Duoneb 3 Mg/0.5 Mg (3 Ml) Ud) 3 ml INH RQ6 [facility] Last Admin: 11/17/17 13:43 Dose: 3 ml Heparin Sodium (Porcine) (Heparin) 5,000 units SC Q8 [facility] Last Admin: 11/17/17 14:22 Dose: Not Given Cefepime HCl (Maxipime Iv 1 Gm Premix) 1 gm in 50 mls @ 100 mls/hr IVPB Q12H [facility] Last Admin: 11/17/17 17:11 Dose: 100 mls/hr Vancomycin HCl 1 gm/ Sodium (Chloride) 200 mls @ 166.7 mls/hr IVPB Q24H [facility] Last Admin: 11/17/17 13:09 Dose: 166.7 mls/hr Dextrose/Sodium Chloride (Dextrose 5%/0.45% Ns 1000 Ml) 1,000 mls @ 60 mls/hr IV .[id number] [facility] Last Admin: 11/17/17 10:26 Dose: 60 mls/hr Methylprednisolone (Solu-Medrol) 40 mg IVP Q6 [facility] Last Admin: 11/17/17 17:11 Dose: 40 mg Pantoprazole Sodium (Protonix Inj) 40 mg IVP DAILY [facility] Last Admin: 11/17/17 09:33 Dose: 40 mg Tiotropium [place] (Spiriva) 18 mcg INH RQ24 [facility] Last Admin: 11/17/17 11:21 Dose: 18 mcg Physical Exam - Constitutional Appears: Toxic, In Acute Distress - Head Exam Head Exam: ATRAUMATIC, NORMAL INSPECTION, NORMOCEPHALIC - Eye Exam Eye Exam: EOMI, Normal appearance Pupil Exam: PERRL - ENT Exam ENT Exam: Mucous Membranes Moist, Normal Exam - Neck Exam Neck exam: Positive for: Normal Inspection - Respiratory Exam Respiratory Exam: NORMAL BREATHING PATTERN - Cardiovascular Exam Cardiovascular Exam: RRR - GI/Abdominal Exam GI & Abdominal Exam: Normal Bowel Sounds, Soft. absent: Organomegaly, Tenderness - Rectal Exam Rectal Exam: Deferred - Extremities Exam Extremities exam: Positive for: pedal pulses present - Neurological Exam Neurological exam: Alert - Psychiatric Exam Psychiatric exam: Normal Affect, Normal Mood - Skin Skin Exam: Dry, Intact, Normal Color, Warm Results - Vital Signs Recent Vital Signs: Last Vital Signs Temp 97.4 F L 11/17/17 16:00 Pulse 85 11/17/17 18:00 Resp 11 L 11/17/17 18:00 BP 158/98 H 11/17/17 16:23 Pulse Ox 100 11/17/17 18:00 - Labs Result Diagrams: 11/17/17 06:28 11/17/17 06:30 Labs: Laboratory Results - last 24 hr 11/16/17 11/17/17 11/17/17 21:14 06:28 06:30 WBC 4.3 L RBC 4.13 L Hgb 11.5 L Hct 37.6 MCV 91.0 MCH 27.8 MCHC 30.6 L RDW 17.5 H Plt Count 94 L MPV 8.4 Neut % (Auto) 86.5 H Lymph % (Auto) 9.1 L [place] % (Auto) 4.2 Eos % (Auto) 0.0 Baso % (Auto) 0.2 Neut # 3.7 Lymph # 0.4 L [place] # 0.2 Eos # 0.0 Baso # 0.0 Neutrophils % (Manual) 77 H Band Neutrophils % 10 H Lymphocytes % (Manual) 11 L Monocytes % (Manual) 1 Eosinophils % (Manual) 1 Platelet Estimate Decreased L Hypochromasia (manual) Slight Poikilocytosis (manual Slight Anisocytosis (manual) Slight Target Cells Slight PT INR APTT Puncture Site pCO2 pO2 HCO3 ABG pH ABG Total CO2 ABG O2 Saturation ABG Base Excess ABG Hemoglobin ABG Carboxyhemoglobin POC ABG HHb (Measured) ABG Methemoglobin Suraj Test A-a O2 Difference Respiratory Index Hgb O2 Saturation FiO2 Crit Value Called To Crit Value Called By Crit Value Read Back Blood Gas Notified Time Sodium 135 Potassium 4.4 Chloride 92 L Carbon Dioxide 43 H* Anion Gap 4 L BUN 34 H Creatinine 0.6 L Est GFR ( Amer) > 60 Est GFR (Non-Af Amer) > 60 POC Glucose (mg/dL) 154 H Random Glucose 104 Calcium 8.3 L Phosphorus 3.2 Magnesium 2.2 Total Bilirubin 0.7 AST 42 ALT 40 Alkaline Phosphatase 49 Total Protein 6.4 Albumin 2.9 L Globulin 3.5 Albumin/Globulin Ratio 0.8 L 11/17/17 11/17/17 11/17/17 07:28 10:48 11:21 WBC RBC Hgb Hct MCV MCH MCHC RDW Plt Count MPV Neut % (Auto) Lymph % (Auto) [place] % (Auto) Eos % (Auto) Baso % (Auto) Neut # Lymph # [place] # Eos # Baso # Neutrophils % (Manual) Band Neutrophils % Lymphocytes % (Manual) Monocytes % (Manual) Eosinophils % (Manual) Platelet Estimate Hypochromasia (manual) Poikilocytosis (manual Anisocytosis (manual) Target Cells PT 13.1 H INR 1.1 APTT 58 H Puncture Site Lb pCO2 77 H* pO2 50 L HCO3 37.0 H ABG pH 7.37 ABG Total CO2 46.9 H ABG O2 Saturation 89.4 L ABG Base Excess 15.8 H ABG Hemoglobin 12.0 ABG Carboxyhemoglobin 2.6 H POC ABG HHb (Measured) 10.2 H ABG Methemoglobin 0.9 Suraj Test Na A-a O2 Difference 3.0 Respiratory Index 0.1 Hgb O2 Saturation 86.2 L FiO2 21.0 Crit Value Called To Dr cardenas Crit Value Called By [place] travis [facility] Crit Value Read Back Y Blood Gas Notified Time 1055 Sodium Potassium Chloride Carbon Dioxide Anion Gap BUN Creatinine Est GFR ( Amer) Est GFR (Non-Af Amer) POC Glucose (mg/dL) 112 H Random Glucose Calcium Phosphorus Magnesium Total Bilirubin AST ALT Alkaline Phosphatase Total Protein Albumin Globulin Albumin/Globulin Ratio 11/17/17 11/17/17 11:34 16:09 WBC RBC Hgb Hct MCV MCH MCHC RDW Plt Count MPV Neut % (Auto) Lymph % (Auto) [place] % (Auto) Eos % (Auto) Baso % (Auto) Neut # Lymph # [place] # Eos # Baso # Neutrophils % (Manual) Band Neutrophils % Lymphocytes % (Manual) Monocytes % (Manual) Eosinophils % (Manual) Platelet Estimate Hypochromasia (manual) Poikilocytosis (manual Anisocytosis (manual) Target Cells PT INR APTT Puncture Site pCO2 pO2 HCO3 ABG pH ABG Total CO2 ABG O2 Saturation ABG Base Excess ABG Hemoglobin ABG Carboxyhemoglobin POC ABG HHb (Measured) ABG Methemoglobin Suraj Test A-a O2 Difference Respiratory Index Hgb O2 Saturation FiO2 Crit Value Called To Crit Value Called By Crit Value Read Back Blood Gas Notified Time Sodium Potassium Chloride Carbon Dioxide Anion Gap BUN Creatinine Est GFR ( Amer) Est GFR (Non-Af Amer) POC Glucose (mg/dL) 136 H 86 Random Glucose Calcium Phosphorus Magnesium Total Bilirubin AST ALT Alkaline Phosphatase Total Protein Albumin Globulin Albumin/Globulin Ratio Assessment & Plan - Assessment and Plan (Free Text) Assessment: This is 72yM presenting with AMS and respiratory failure. 1. Dysphagia 2. Poor nutrition 3. Aspiration PNA 4. Vocal cord mass Plan: -Continue supportive care -Barium swallow with dysphagia, pt aspirating -NPO -Pt may need PEG for nutritional intake, possible Monday -Continue abx for aspiration -Vocal cord mass, recommendations and biospy per ENT -Will continue to follow closely <Nii Horner - Last Filed: 11/17/17 20:27> Meds - Medications Medications: Current Medications Albuterol/Ipratropium (Duoneb 3 Mg/0.5 Mg (3 Ml) Ud) 3 ml INH RQ6 [facility] Last Admin: 11/17/17 13:43 Dose: 3 ml Heparin Sodium (Porcine) (Heparin) 5,000 units SC Q8 [facility] Last Admin: 11/17/17 14:22 Dose: Not Given Cefepime HCl (Maxipime Iv 1 Gm Premix) 1 gm in 50 mls @ 100 mls/hr IVPB Q12H [facility] Last Admin: 11/17/17 17:11 Dose: 100 mls/hr Vancomycin HCl 1 gm/ Sodium (Chloride) 200 mls @ 166.7 mls/hr IVPB Q24H [facility] Last Admin: 11/17/17 13:09 Dose: 166.7 mls/hr Dextrose/Sodium Chloride (Dextrose 5%/0.45% Ns 1000 Ml) 1,000 mls @ 60 mls/hr IV .[id number] [facility] Last Admin: 11/17/17 10:26 Dose: 60 mls/hr Methylprednisolone (Solu-Medrol) 40 mg IVP Q6 [facility] Last Admin: 11/17/17 17:11 Dose: 40 mg Pantoprazole Sodium (Protonix Inj) 40 mg IVP DAILY [facility] Last Admin: 11/17/17 09:33 Dose: 40 mg Tiotropium [place] (Spiriva) 18 mcg INH RQ24 [facility] Last Admin: 11/17/17 11:21 Dose: 18 mcg Results - Vital Signs Recent Vital Signs: Last Vital Signs Temp 97.4 F L 11/17/17 16:00 Pulse 85 11/17/17 18:00 Resp 11 L 11/17/17 18:00 BP 158/98 H 11/17/17 16:23 Pulse Ox 100 11/17/17 18:00 - Labs Result Diagrams: 11/17/17 06:28 11/17/17 06:30 Labs: Laboratory Results - last 24 hr 11/16/17 11/17/17 11/17/17 21:14 06:28 06:30 WBC 4.3 L RBC 4.13 L Hgb 11.5 L Hct 37.6 MCV 91.0 MCH 27.8 MCHC 30.6 L RDW 17.5 H Plt Count 94 L MPV 8.4 Neut % (Auto) 86.5 H Lymph % (Auto) 9.1 L [place] % (Auto) 4.2 Eos % (Auto) 0.0 Baso % (Auto) 0.2 Neut # 3.7 Lymph # 0.4 L [place] # 0.2 Eos # 0.0 Baso # 0.0 Neutrophils % (Manual) 77 H Band Neutrophils % 10 H Lymphocytes % (Manual) 11 L Monocytes % (Manual) 1 Eosinophils % (Manual) 1 Platelet Estimate Decreased L Hypochromasia (manual) Slight Poikilocytosis (manual Slight Anisocytosis (manual) Slight Target Cells Slight PT INR APTT Puncture Site pCO2 pO2 HCO3 ABG pH ABG Total CO2 ABG O2 Saturation ABG Base Excess ABG Hemoglobin ABG Carboxyhemoglobin POC ABG HHb (Measured) ABG Methemoglobin Suraj Test A-a O2 Difference Respiratory Index Hgb O2 Saturation FiO2 Crit Value Called To Crit Value Called By Crit Value Read Back Blood Gas Notified Time Sodium 135 Potassium 4.4 Chloride 92 L Carbon Dioxide 43 H* Anion Gap 4 L BUN 34 H Creatinine 0.6 L Est GFR ( Amer) > 60 Est GFR (Non-Af Amer) > 60 POC Glucose (mg/dL) 154 H Random Glucose 104 Calcium 8.3 L Phosphorus 3.2 Magnesium 2.2 Total Bilirubin 0.7 AST 42 ALT 40 Alkaline Phosphatase 49 Total Protein 6.4 Albumin 2.9 L Globulin 3.5 Albumin/Globulin Ratio 0.8 L 11/17/17 11/17/17 11/17/17 07:28 10:48 11:21 WBC RBC Hgb Hct MCV MCH MCHC RDW Plt Count MPV Neut % (Auto) Lymph % (Auto) [place] % (Auto) Eos % (Auto) Baso % (Auto) Neut # Lymph # [place] # Eos # Baso # Neutrophils % (Manual) Band Neutrophils % Lymphocytes % (Manual) Monocytes % (Manual) Eosinophils % (Manual) Platelet Estimate Hypochromasia (manual) Poikilocytosis (manual Anisocytosis (manual) Target Cells PT 13.1 H INR 1.1 APTT 58 H Puncture Site Lb pCO2 77 H* pO2 50 L HCO3 37.0 H ABG pH 7.37 ABG Total CO2 46.9 H ABG O2 Saturation 89.4 L ABG Base Excess 15.8 H ABG Hemoglobin 12.0 ABG Carboxyhemoglobin 2.6 H POC ABG HHb (Measured) 10.2 H ABG Methemoglobin 0.9 Suraj Test Na A-a O2 Difference 3.0 Respiratory Index 0.1 Hgb O2 Saturation 86.2 L FiO2 21.0 Crit Value Called To Dr cardenas Crit Value Called By [place] tra[facility] Crit Value Read Back Y Blood Gas Notified Time 1055 Sodium Potassium Chloride Carbon Dioxide Anion Gap BUN Creatinine Est GFR ( Amer) Est GFR (Non-Af Amer) POC Glucose (mg/dL) 112 H Random Glucose Calcium Phosphorus Magnesium Total Bilirubin AST ALT Alkaline Phosphatase Total Protein Albumin Globulin Albumin/Globulin Ratio 11/17/17 11/17/17 11:34 16:09 WBC RBC Hgb Hct MCV MCH MCHC RDW Plt Count MPV Neut % (Auto) Lymph % (Auto) [place] % (Auto) Eos % (Auto) Baso % (Auto) Neut # Lymph # [place] # Eos # Baso # Neutrophils % (Manual) Band Neutrophils % Lymphocytes % (Manual) Monocytes % (Manual) Eosinophils % (Manual) Platelet Estimate Hypochromasia (manual) Poikilocytosis (manual Anisocytosis (manual) Target Cells PT INR APTT Puncture Site pCO2 pO2 HCO3 ABG pH ABG Total CO2 ABG O2 Saturation ABG Base Excess ABG Hemoglobin ABG Carboxyhemoglobin POC ABG HHb (Measured) ABG Methemoglobin Suraj Test A-a O2 Difference Respiratory Index Hgb O2 Saturation FiO2 Crit Value Called To Crit Value Called By Crit Value Read Back Blood Gas Notified Time Sodium Potassium Chloride Carbon Dioxide Anion Gap BUN Creatinine Est GFR ( Amer) Est GFR (Non-Af Amer) POC Glucose (mg/dL) 136 H 86 Random Glucose Calcium Phosphorus Magnesium Total Bilirubin AST ALT Alkaline Phosphatase Total Protein Albumin Globulin Albumin/Globulin Ratio Attending/Attestation - Attestation I have personally seen and examined this patient.: Yes I have fully participated in the care of the patient.: Yes I have reviewed all pertinent clinical information: Yes Notes (Text): 11/17/17 20:25 72 year old male with dysphagia, aspiration 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 1. Dysphagia 2. Aspiration 3. Vocal cord mass Plan: -patient with noted aspiration on barium swallow -likely to need PEG -await ENT eval for vocal cord mass -tentatively plan for PEG monday if patient is medically fit/optimized at that time
[2017-11-18] MEDS: Albuterol-Ipratrop 3 mg / 0.5 (3 ml) UD INH SCH ×4 (01:28→19:49)
--- NOTE | 2017-11-18 01:28 | OP ---
PROCEDURE DATE: 11/17/2017 PREOPERATIVE DIAGNOSIS: Hoarseness and throat lesion. POSTOPERATIVE DIAGNOSIS: Hoarseness and throat lesion. PROCEDURE: Flexible laryngoscopy. SURGEON: Corwin Dia M.D. SIGNIFICANT FINDINGS: Right AE fold mass. DESCRIPTION OF PROCEDURE: The patient was placed in a seated position. Flexible laryngoscope was inserted into the nasal cavity, passed to the nasopharynx, oropharynx, and hypopharynx. The pharyngeal mueller, base of tongue, vallecula, epiglottis, AE folds, false cords, true cords were brought into view. There was a large mass noted on the right AE fold/epiglottis extending to the false cords and true cords. Airway is okay. For now the vocal cord is non-mobile. The scope was removed. Patient tolerated the procedure well. Patient for biopsy on Monday. Requested medical clearance from the ICU doctor. Corwin Dia MD
[2017-11-18] MEDS: Cefepime IV 1 gm in Dextrose 1 GM/50 ML BAG IVPB SCH ×2 (05:35→17:15)
[2017-11-18] MEDS: MethylPREDNISolone 40 mg Vial IVP SCH ×4 (05:36→23:48)
[2017-11-18] MEDS: Dextrose 5%/0.45% NS 1,000 ML IV SCH ×3 (07:35→21:28)
[2017-11-18] MEDS: Tiotropium 18 mcg Cap For Inhalation INH SCH (07:52)
[2017-11-18] MEDS: Vancomycin 1 GM in Sodium Chloride 0.9% 200 ML IVPB SCH (11:57)
[2017-11-18 12:23] LABS: ABG ALLEN TEST POS; ARTERIAL BLOOD GAS HCO3 32.7 mmol/L (21-28); ARTERIAL BLOOD GAS HEMOGLOBIN 12.4 g/dL (11.7-17.4); ARTERIAL BLOOD GAS O2 SAT 86.9 % (95-98); ARTERIAL BLOOD GAS PCO2 133 mm/Hg (35-45); ARTERIAL BLOOD GAS PH 7.13 (7.35-7.45); ARTERIAL BLOOD GAS PO2 55 mm/Hg (80-100); ARTERIAL BLOOD GAS TCO2 48.3 mmol/L (22-28)
--- NOTE | 2017-11-18 17:45 | CP.PCM.PN ---
Subjective - Date & Time of Evaluation Date of Evaluation: 11/18/17 Time of Evaluation: 13:20 - Subjective Subjective: clinically same Objective - Vital Signs/Intake and Output Vital Signs (last 24 hours): Temp Pulse Resp BP Pulse Ox 97.2 F L 90 18 126/92 H 98 11/18/17 16:00 11/18/17 16:00 11/18/17 16:00 11/18/17 16:00 11/18/17 16:00 Intake and Output: 11/18/17 11/18/17 06:59 18:59 Intake Total 650 743 Output Total 750 Balance 650 -7 - Medications Medications: Current Medications Albuterol/Ipratropium (Duoneb 3 Mg/0.5 Mg (3 Ml) Ud) 3 ml INH RQ6 [facility] Last Admin: 11/18/17 13:47 Dose: 3 ml Heparin Sodium (Porcine) (Heparin) 5,000 units SC Q8 [facility] Last Admin: 11/18/17 15:25 Dose: 5,000 units Cefepime HCl (Maxipime Iv 1 Gm Premix) 1 gm in 50 mls @ 100 mls/hr IVPB Q12H [facility] Last Admin: 11/18/17 17:15 Dose: 100 mls/hr Vancomycin HCl 1 gm/ Sodium (Chloride) 200 mls @ 166.7 mls/hr IVPB Q24H [facility] Last Admin: 11/18/17 11:57 Dose: 166.7 mls/hr Dextrose/Sodium Chloride (Dextrose 5%/0.45% Ns 1000 Ml) 1,000 mls @ 60 mls/hr IV .[id number] [facility] Last Admin: 11/18/17 08:54 Dose: 60 mls/hr Methylprednisolone (Solu-Medrol) 40 mg IVP Q6 [facility] Last Admin: 11/18/17 17:15 Dose: 40 mg Pantoprazole Sodium (Protonix Inj) 40 mg IVP DAILY [facility] Last Admin: 11/18/17 09:44 Dose: 40 mg Tiotropium [place] (Spiriva) 18 mcg INH RQ24 [facility] Last Admin: 11/18/17 07:52 Dose: 18 mcg - Labs Labs: 11/17/17 06:28 11/17/17 06:30 PT 13.1 SECONDS (9.7-12.2) H 11/17/17 11:21 INR 1.1 11/17/17 11:21 APTT 58 SECONDS (21-34) H 11/17/17 11:21
[2017-11-19] MEDS: Albuterol-Ipratrop 3 mg / 0.5 (3 ml) UD INH SCH ×4 (01:06→20:35)
[2017-11-19 03:48] LABS: SPECIMEN SOURCE Serum
[2017-11-19] MEDS: MethylPREDNISolone 40 mg Vial IVP SCH ×4 (05:30→23:08)
[2017-11-19] MEDS: Cefepime IV 1 gm in Dextrose 1 GM/50 ML BAG IVPB SCH ×2 (05:31→17:32)
[2017-11-19] MEDS: Tiotropium 18 mcg Cap For Inhalation INH SCH (08:22)
--- NOTE | 2017-11-19 09:38 | CP.PCM.PN ---
<Paul,Charlene - Last Filed: 11/19/17 09:34> Subjective - Date & Time of Evaluation Date of Evaluation: 11/19/17 Time of Evaluation: 08:25 - Subjective Subjective: GI Fellow PGY4 Progress Note Pt seen and evaluated at bedside, pt currently on BIPAP and SOB, unable to answer questions appropriately. Denies any abdominal pain. ROS: A 12pt ROS was unable obtained due to respiratory status Objective - Vital Signs/Intake and Output Vital Signs (last 24 hours): Temp Pulse Resp BP Pulse Ox 97.5 F L 88 16 131/82 95 11/19/17 03:47 11/19/17 08:40 11/19/17 03:47 11/19/17 03:47 11/19/17 03:47 Intake and Output: 11/19/17 11/19/17 06:59 18:59 Intake Total 480 Output Total 400 Balance 80 - Medications Medications: Current Medications Albuterol/Ipratropium (Duoneb 3 Mg/0.5 Mg (3 Ml) Ud) 3 ml INH RQ6 [facility] Last Admin: 11/19/17 08:21 Dose: 3 ml Heparin Sodium (Porcine) (Heparin) 5,000 units SC Q8 [facility] Last Admin: 11/19/17 05:30 Dose: 5,000 units Cefepime HCl (Maxipime Iv 1 Gm Premix) 1 gm in 50 mls @ 100 mls/hr IVPB Q12H [facility] Last Admin: 11/19/17 05:31 Dose: 100 mls/hr Vancomycin HCl 1 gm/ Sodium (Chloride) 200 mls @ 166.7 mls/hr IVPB Q24H [facility] Last Admin: 11/18/17 11:57 Dose: 166.7 mls/hr Dextrose/Sodium Chloride (Dextrose 5%/0.45% Ns 1000 Ml) 1,000 mls @ 60 mls/hr IV .[id number] [facility] Last Admin: 11/18/17 21:28 Dose: Not Given Methylprednisolone (Solu-Medrol) 40 mg IVP Q6 [facility] Last Admin: 11/19/17 05:30 Dose: 40 mg Pantoprazole Sodium (Protonix Inj) 40 mg IVP DAILY [facility] Last Admin: 11/18/17 09:44 Dose: 40 mg Tiotropium [place] (Spiriva) 18 mcg INH RQ24 [facility] Last Admin: 11/19/17 08:22 Dose: Not Given - Labs Labs: 11/17/17 06:28 11/17/17 06:30 PT 13.1 SECONDS (9.7-12.2) H 11/17/17 11:21 INR 1.1 11/17/17 11:21 APTT 58 SECONDS (21-34) H 11/17/17 11:21 - Constitutional Appears: Non-toxic, In Acute Distress, Cachectic, Chronically Ill - Head Exam Head Exam: ATRAUMATIC, NORMAL INSPECTION, NORMOCEPHALIC - Eye Exam Eye Exam: EOMI, PERRL - ENT Exam ENT Exam: Mucous Membranes Dry - Respiratory Exam Respiratory Exam: Rhonchi, Respiratory Distress - Cardiovascular Exam Cardiovascular Exam: Tachycardia - GI/Abdominal Exam GI & Abdominal Exam: Soft, Normal Bowel Sounds. absent: Distended, Tenderness - Rectal Exam Rectal Exam: Deferred - Neurological Exam Neurological Exam: Alert - Psychiatric Exam Psychiatric exam: Normal Affect, Normal Mood - Skin Skin Exam: Dry, Intact, Normal Color, Warm Assessment and Plan - Assessment and Plan (Free Text) Assessment: This is 72yM presenting with AMS and respiratory failure. 1. Dysphagia 2. Poor nutrition 3. Aspiration PNA 4. 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 -Pt currently on BIPAP, not medically stable for PEG, will reevaluate in am to see if pt can get a PEG or wait until vocal cord mass biopsy -Will continue to follow closely <Nii Horner - Last Filed: 11/19/17 13:27> Objective - Vital Signs/Intake and Output Vital Signs (last 24 hours): Temp Pulse Resp BP Pulse Ox 97.5 F L 88 16 131/82 95 11/19/17 03:47 11/19/17 08:40 11/19/17 03:47 11/19/17 03:47 11/19/17 03:47 Intake and Output: 11/19/17 11/19/17 06:59 18:59 Intake Total 480 Output Total 400 Balance 80 - Medications Medications: Current Medications Albuterol/Ipratropium (Duoneb 3 Mg/0.5 Mg (3 Ml) Ud) 3 ml INH RQ6 [facility] Last Admin: 11/19/17 08:21 Dose: 3 ml Heparin Sodium (Porcine) (Heparin) 5,000 units SC Q8 [facility] Last Admin: 11/19/17 05:30 Dose: 5,000 units Cefepime HCl (Maxipime Iv 1 Gm Premix) 1 gm in 50 mls @ 100 mls/hr IVPB Q12H [facility] Last Admin: 11/19/17 05:31 Dose: 100 mls/hr Vancomycin HCl 1 gm/ Sodium (Chloride) 200 mls @ 166.7 mls/hr IVPB Q24H [facility] Last Admin: 11/18/17 11:57 Dose: 166.7 mls/hr Dextrose/Sodium Chloride (Dextrose 5%/0.45% Ns 1000 Ml) 1,000 mls @ 60 mls/hr IV .[id number] [facility] Last Admin: 11/18/17 21:28 Dose: Not Given Methylprednisolone (Solu-Medrol) 40 mg IVP Q6 [facility] Last Admin: 11/19/17 12:09 Dose: 40 mg Pantoprazole Sodium (Protonix Inj) 40 mg IVP DAILY [facility] Last Admin: 11/19/17 11:00 Dose: 40 mg Tiotropium [place] (Spiriva) 18 mcg INH RQ24 [facility] Last Admin: 11/19/17 08:22 Dose: Not Given - Labs Labs: 11/17/17 06:28 11/17/17 06:30 PT 13.1 SECONDS (9.7-12.2) H 11/17/17 11:21 INR 1.1 11/17/17 11:21 APTT 58 SECONDS (21-34) H 11/17/17 11:21 Attending/Attestation - Attestation I have personally seen and examined this patient.: Yes I have fully participated in the care of the patient.: Yes I have reviewed all pertinent clinical information, including history, physical exam and plan: Yes Notes (Text): 11/19/17 13:26 72 year old male with dysphagia, aspiration 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 1. Dysphagia 2. Aspiration 3. Vocal cord mass Plan: -patient with noted aspiration on barium swallow -likely to need PEG -await ENT biopsy for vocal cord mass -plan for PEG when patient medically optimized/stable
--- NOTE | 2017-11-19 15:03 | CP.PCM.PN ---
Subjective - Date & Time of Evaluation Date of Evaluation: 11/19/17 Time of Evaluation: 10:00 - Subjective Subjective: patient seen and examined. Sitting comfortably in no acute distress On BiPAP as needed for shortness of breath Afebrile Objective - Vital Signs/Intake and Output Vital Signs (last 24 hours): Temp Pulse Resp BP Pulse Ox 97.5 F L 88 16 131/82 95 11/19/17 03:47 11/19/17 08:40 11/19/17 03:47 11/19/17 03:47 11/19/17 03:47 Intake and Output: 11/19/17 11/19/17 06:59 18:59 Intake Total 480 Output Total 400 Balance 80 - Medications Medications: Current Medications Albuterol/Ipratropium (Duoneb 3 Mg/0.5 Mg (3 Ml) Ud) 3 ml INH RQ6 [facility] Last Admin: 11/19/17 13:47 Dose: Not Given Heparin Sodium (Porcine) (Heparin) 5,000 units SC Q8 [facility] Last Admin: 11/19/17 14:20 Dose: 5,000 units Cefepime HCl (Maxipime Iv 1 Gm Premix) 1 gm in 50 mls @ 100 mls/hr IVPB Q12H [facility] Last Admin: 11/19/17 05:31 Dose: 100 mls/hr Vancomycin HCl 1 gm/ Sodium (Chloride) 200 mls @ 166.7 mls/hr IVPB Q24H [facility] Last Admin: 11/18/17 11:57 Dose: 166.7 mls/hr Dextrose/Sodium Chloride (Dextrose 5%/0.45% Ns 1000 Ml) 1,000 mls @ 60 mls/hr IV .[id number] [facility] Last Admin: 11/18/17 21:28 Dose: Not Given Methylprednisolone (Solu-Medrol) 40 mg IVP Q6 [facility] Last Admin: 11/19/17 12:09 Dose: 40 mg Pantoprazole Sodium (Protonix Inj) 40 mg IVP DAILY [facility] Last Admin: 11/19/17 11:00 Dose: 40 mg Tiotropium [place] (Spiriva) 18 mcg INH RQ24 [facility] Last Admin: 11/19/17 08:22 Dose: Not Given - Labs Labs: 11/17/17 06:28 11/17/17 06:30 PT 13.1 SECONDS (9.7-12.2) H 11/17/17 11:21 INR 1.1 11/17/17 11:21 APTT 58 SECONDS (21-34) H 11/17/17 11:21 - Constitutional Appears: No Acute Distress - Head Exam Head Exam: ATRAUMATIC, NORMOCEPHALIC - ENT Exam ENT Exam: Mucous Membranes Moist - Neck Exam Neck Exam: Normal Inspection - Respiratory Exam Respiratory Exam: Decreased Breath Sounds - Cardiovascular Exam Cardiovascular Exam: REGULAR RHYTHM - GI/Abdominal Exam GI & Abdominal Exam: Soft, Normal Bowel Sounds - Extremities Exam Extremities Exam: Normal Inspection - Neurological Exam Neurological Exam: Awake Assessment and Plan (1) Acute hypercapnic respiratory failure Assessment & Plan: on BiPAPAs needed for shortness of breath For vocal cord mass biopsy Continue to taper steroids Nebulizer treatment Follow-up ABG Status: Acute (2) COPD exacerbation Status: Acute
[2017-11-19] MEDS: Vancomycin 1 GM in Sodium Chloride 0.9% 200 ML IVPB SCH (15:10)
[2017-11-19 16:57] LABS: LDH PLEURAL FLUID 100 U/L; TOTAL PROTEIN PLEURAL FLUID <3.0 g/dL
--- NOTE | 2017-11-19 17:41 | CP.PCM.PN ---
Subjective - Date & Time of Evaluation Date of Evaluation: 11/19/17 Time of Evaluation: 08:00 - Subjective Subjective: Sitting comfortably in no acute distress On BiPAP as needed for shortness of breath Afebrile Objective - Vital Signs/Intake and Output Vital Signs (last 24 hours): Temp Pulse Resp BP Pulse Ox 98.1 F 94 H 20 143/78 95 11/19/17 15:56 11/19/17 15:56 11/19/17 15:56 11/19/17 15:56 11/19/17 15:56 Intake and Output: 11/19/17 11/19/17 06:59 18:59 Intake Total 480 Output Total 400 Balance 80 - Medications Medications: Current Medications Albuterol/Ipratropium (Duoneb 3 Mg/0.5 Mg (3 Ml) Ud) 3 ml INH RQ6 [facility] Last Admin: 11/19/17 13:47 Dose: Not Given Heparin Sodium (Porcine) (Heparin) 5,000 units SC Q8 [facility] Last Admin: 11/19/17 14:20 Dose: 5,000 units Cefepime HCl (Maxipime Iv 1 Gm Premix) 1 gm in 50 mls @ 100 mls/hr IVPB Q12H [facility] Last Admin: 11/19/17 17:32 Dose: 100 mls/hr Vancomycin HCl 1 gm/ Sodium (Chloride) 200 mls @ 166.7 mls/hr IVPB Q24H [facility] Last Admin: 11/19/17 15:10 Dose: 166.7 mls/hr Dextrose/Sodium Chloride (Dextrose 5%/0.45% Ns 1000 Ml) 1,000 mls @ 60 mls/hr IV .[id number] [facility] Last Admin: 11/18/17 21:28 Dose: Not Given Methylprednisolone (Solu-Medrol) 40 mg IVP Q6 [facility] Last Admin: 11/19/17 17:31 Dose: 40 mg Pantoprazole Sodium (Protonix Inj) 40 mg IVP DAILY [facility] Last Admin: 11/19/17 11:00 Dose: 40 mg Tiotropium [place] (Spiriva) 18 mcg INH RQ24 [facility] Last Admin: 11/19/17 08:22 Dose: Not Given - Labs Labs: 11/17/17 06:28 11/17/17 06:30 PT 13.1 SECONDS (9.7-12.2) H 11/17/17 11:21 INR 1.1 11/17/17 11:21 APTT 58 SECONDS (21-34) H 11/17/17 11:21 - Constitutional Appears: Non-toxic, Confused, Cachectic, Chronically Ill - Head Exam Head Exam: NORMOCEPHALIC - Eye Exam Eye Exam: PERRL. absent: Scleral icterus - ENT Exam ENT Exam: Mucous Membranes Dry - Neck Exam Neck Exam: absent: Lymphadenopathy - Respiratory Exam Respiratory Exam: Decreased Breath Sounds, Rhonchi - Cardiovascular Exam Cardiovascular Exam: REGULAR RHYTHM, +S1, +S2 - GI/Abdominal Exam GI & Abdominal Exam: Distended, Soft. absent: Tenderness - Rectal Exam Rectal Exam: Deferred - Exam Exam: NORMAL INSPECTION - Extremities Exam Extremities Exam: absent: Pedal Edema - Back Exam Back Exam: absent: CVA tenderness (L), CVA tenderness (R) - Neurological Exam Neurological Exam: Alert, Awake Assessment and Plan (1) Acute hypercapnic respiratory failure Status: Acute (2) Hypothermia Status: Acute (3) Syncope and collapse Status: Acute (4) Toxic metabolic encephalopathy Status: Acute (5) CHF (congestive heart failure) Status: Acute (6) COPD exacerbation Status: Acute (7) Chr obstructive pulmonary disease w/ acute lower respiratory infxn Status: Acute
--- NOTE | 2017-11-19 20:19 | CP.PCM.PN ---
Subjective - Date & Time of Evaluation Date of Evaluation: 11/19/17 Time of Evaluation: 09:40 - Subjective Subjective: clinically same Objective - Vital Signs/Intake and Output Vital Signs (last 24 hours): Temp Pulse Resp BP Pulse Ox 98.1 F 94 H 20 143/78 95 11/19/17 15:56 11/19/17 15:56 11/19/17 15:56 11/19/17 15:56 11/19/17 15:56 - Medications Medications: Current Medications Albuterol/Ipratropium (Duoneb 3 Mg/0.5 Mg (3 Ml) Ud) 3 ml INH RQ6 [facility] Last Admin: 11/19/17 13:47 Dose: Not Given Heparin Sodium (Porcine) (Heparin) 5,000 units SC Q8 [facility] Last Admin: 11/19/17 14:20 Dose: 5,000 units Cefepime HCl (Maxipime Iv 1 Gm Premix) 1 gm in 50 mls @ 100 mls/hr IVPB Q12H [facility] Last Admin: 11/19/17 17:32 Dose: 100 mls/hr Vancomycin HCl 1 gm/ Sodium (Chloride) 200 mls @ 166.7 mls/hr IVPB Q24H [facility] Last Admin: 11/19/17 15:10 Dose: 166.7 mls/hr Dextrose/Sodium Chloride (Dextrose 5%/0.45% Ns 1000 Ml) 1,000 mls @ 60 mls/hr IV .[id number] [facility] Last Admin: 11/18/17 21:28 Dose: Not Given Methylprednisolone (Solu-Medrol) 40 mg IVP Q6 [facility] Last Admin: 11/19/17 17:31 Dose: 40 mg Pantoprazole Sodium (Protonix Inj) 40 mg IVP DAILY [facility] Last Admin: 11/19/17 11:00 Dose: 40 mg Tiotropium [place] (Spiriva) 18 mcg INH RQ24 [facility] Last Admin: 11/19/17 08:22 Dose: Not Given - Labs Labs: 11/17/17 06:28 11/17/17 06:30 PT 13.1 SECONDS (9.7-12.2) H 11/17/17 11:21 INR 1.1 11/17/17 11:21 APTT 58 SECONDS (21-34) H 11/17/17 11:21
[2017-11-20] MEDS: Dextrose 5%/0.45% NS 1,000 ML IV SCH ×2 (01:10→21:39)
[2017-11-20] MEDS: Albuterol-Ipratrop 3 mg / 0.5 (3 ml) UD INH SCH ×4 (02:00→19:24)
[2017-11-20] MEDS: MethylPREDNISolone 40 mg Vial IVP SCH ×3 (05:40→18:50)
[2017-11-20] MEDS: Cefepime IV 1 gm in Dextrose 1 GM/50 ML BAG IVPB SCH ×2 (05:40→18:50)
[2017-11-20] MEDS: Tiotropium 18 mcg Cap For Inhalation INH SCH (07:14)
--- NOTE | 2017-11-20 08:18 | CP.PCM.PN ---
<Charlene Miller - Last Filed: 11/20/17 11:32> Subjective - Date & Time of Evaluation Date of Evaluation: 11/20/17 Time of Evaluation: 06:45 - Subjective Subjective: GI Fellow PGY4 Progress Note Pt seen and evaluated at bedside, pt disoriented and agitated overnight. Pt reports that his sister, and brother are in the room and can see them. Otherwise he is able to answer questions and is oriented to person, place and time. Denies any abdominal pain. ROS: A 12pt ROS was negative except as above. Objective - Vital Signs/Intake and Output Vital Signs (last 24 hours): Temp Pulse Resp BP Pulse Ox 98.4 F 99 H 20 162/84 H 97 11/19/17 23:40 11/19/17 23:40 11/19/17 23:40 11/19/17 23:40 11/19/17 23:40 - Medications Medications: Current Medications Albuterol/Ipratropium (Duoneb 3 Mg/0.5 Mg (3 Ml) Ud) 3 ml INH RQ6 [facility] Last Admin: 11/20/17 07:13 Dose: 3 ml Heparin Sodium (Porcine) (Heparin) 5,000 units SC Q8 [facility] Last Admin: 11/20/17 05:41 Dose: 5,000 units Cefepime HCl (Maxipime Iv 1 Gm Premix) 1 gm in 50 mls @ 100 mls/hr IVPB Q12H [facility] Last Admin: 11/20/17 05:40 Dose: 100 mls/hr Vancomycin HCl 1 gm/ Sodium (Chloride) 200 mls @ 166.7 mls/hr IVPB Q24H [facility] Last Admin: 11/19/17 15:10 Dose: 166.7 mls/hr Dextrose/Sodium Chloride (Dextrose 5%/0.45% Ns 1000 Ml) 1,000 mls @ 60 mls/hr IV .[id number] [facility] Last Admin: 11/20/17 01:10 Dose: 60 mls/hr Methylprednisolone (Solu-Medrol) 40 mg IVP Q6 [facility] Last Admin: 11/20/17 05:40 Dose: 40 mg Pantoprazole Sodium (Protonix Inj) 40 mg IVP DAILY [facility] Last Admin: 11/19/17 11:00 Dose: 40 mg Tiotropium [place] (Spiriva) 18 mcg INH RQ24 [facility] Last Admin: 11/20/17 07:14 Dose: Not Given - Labs Labs: 11/17/17 06:28 11/17/17 06:30 PT 13.1 SECONDS (9.7-12.2) H 11/17/17 11:21 INR 1.1 11/17/17 11:21 APTT 58 SECONDS (21-34) H 11/17/17 11:21 - Constitutional Appears: Non-toxic, No Acute Distress, Confused, Cachectic - Head Exam Head Exam: ATRAUMATIC, NORMAL INSPECTION, NORMOCEPHALIC - Eye Exam Eye Exam: EOMI, PERRL - ENT Exam ENT Exam: Mucous Membranes Dry - Respiratory Exam Respiratory Exam: Rhonchi, NORMAL BREATHING PATTERN - Cardiovascular Exam Cardiovascular Exam: REGULAR RHYTHM - GI/Abdominal Exam GI & Abdominal Exam: Soft, Normal Bowel Sounds. absent: Distended, Tenderness - Rectal Exam Rectal Exam: Deferred - Extremities Exam Extremities Exam: Normal Inspection - Neurological Exam Neurological Exam: Alert, Awake, Oriented x3 - Psychiatric Exam Psychiatric exam: Normal Affect, Normal Mood - Skin Skin Exam: Dry, Intact, Normal Color, Warm Assessment and Plan - Assessment and Plan (Free Text) Assessment: This is 72yM presenting with AMS and respiratory failure. 1. Dysphagia 2. Poor nutrition 3. Aspiration PNA 4. 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 -Pt currently very confused, not able to consent, called contact number in chart , no one picking up, cs case maker to help with POA for possible consent -Will wait for vocal cord mass biopsy and wait for PEG -Recommend PPN -Will continue to follow closely <Jhon Oneill MD - Last Filed: 11/20/17 12:07> Objective - Vital Signs/Intake and Output Vital Signs (last 24 hours): Temp Pulse Resp BP Pulse Ox 98.4 F 99 H 20 162/84 H 97 11/19/17 23:40 11/19/17 23:40 11/19/17 23:40 11/19/17 23:40 11/19/17 23:40 - Medications Medications: Current Medications Albuterol/Ipratropium (Duoneb 3 Mg/0.5 Mg (3 Ml) Ud) 3 ml INH RQ6 [facility] Last Admin: 11/20/17 07:13 Dose: 3 ml Heparin Sodium (Porcine) (Heparin) 5,000 units SC Q8 [facility] Last Admin: 11/20/17 05:41 Dose: 5,000 units Cefepime HCl (Maxipime Iv 1 Gm Premix) 1 gm in 50 mls @ 100 mls/hr IVPB Q12H [facility] Last Admin: 11/20/17 05:40 Dose: 100 mls/hr Vancomycin HCl 1 gm/ Sodium (Chloride) 200 mls @ 166.7 mls/hr IVPB Q24H [facility] Last Admin: 11/20/17 11:53 Dose: 166.7 mls/hr Methylprednisolone (Solu-Medrol) 40 mg IVP Q6 [facility] Last Admin: 11/20/17 11:55 Dose: 40 mg Pantoprazole Sodium (Protonix Inj) 40 mg IVP DAILY [facility] Last Admin: 11/20/17 09:27 Dose: 40 mg Tiotropium [place] (Spiriva) 18 mcg INH RQ24 [facility] Last Admin: 11/20/17 07:14 Dose: Not Given - Labs Labs: 11/20/17 09:42 11/20/17 09:42 PT 15.4 SECONDS (9.7-12.2) H 11/20/17 09:42 INR 1.3 11/20/17 09:42 APTT 58 SECONDS (21-34) H 11/17/17 11:21 Attending/Attestation - Attestation I have personally seen and examined this patient.: Yes I have fully participated in the care of the patient.: Yes I have reviewed all pertinent clinical information, including history, physical exam and plan: Yes Notes (Text): 11/20/17 12:03 Patient seen with GI fellow on rounds this am. 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 ENT to schedule biopsy of mass. Not able to eat. GI consulted for PEG which may be technically difficult if mass is abutting hypopharynx. Patient can get alternate means of nutrition till diagnosis is established with concrete plan. Team to reach out to family with goals of care. Can start PPN/ TPN. Will sign off till above is established. Patient is high risk for intubation for respiratory status and aspiration risk during procedure. Currently he is DNR/DNI. Please reconsult once all above discussed with NOK
[2017-11-20 09:52] LABS: BASO % 0.1 % (0.0-2.0); HEMOGLOBIN 11.1 g/dL (12.0-18.0); LYMPH # 0.1 K/uL (1.0-4.3); LYMPH % 2.9 % (20.0-40.0); MEAN CORPUSCULAR HEMOGLOBIN 27.7 pg (27.0-31.0); MEAN CORPUSCULAR HGB CONC 31.7 g/dL (33.0-37.0); MEAN PLATELET VOLUME 8.5 fL (7.2-11.7); MONO # 0.2 K/uL (0.0-0.8); MONO % 5.7 % (0.0-10.0); NEUT # 3.9 K/uL (1.8-7.0); NEUT % 91.3 % (50.0-75.0); NRBC % 0.1 % (0.0-2.0); RBC 4.01 Mil/uL (4.40-5.90); WHITE BLOOD COUNT 4.3 K/uL (4.8-10.8)
[2017-11-20 09:56] LABS: INR 1.3; PROTHROMBIN TIME 15.4 SECONDS (9.7-12.2)
[2017-11-20 09:58] LABS: MEAN CELL VOLUME 87.5 fL (80.0-94.0); PLATELET COUNT 115 K/uL (130-400)
[2017-11-20 10:45] LABS: BLOOD UREA NITROGEN 23 mg/dL (9-20)
[2017-11-20 10:46] LABS: ALB/GLOB RATIO 0.8 (1.0-2.1); ALBUMIN 2.6 g/dL (3.5-5.0); ALT/SGPT 37 U/L (21-72); AST/SGOT 27 U/L (17-59); CALCIUM 8.5 mg/dl (8.6-10.4); GFR AFRICAN-AMERICAN > 60; GFR NON-AFRICAN AMERICAN > 60
[2017-11-20 10:52] LABS: ANISOCYTOSIS SLIGHT; HYPOCHROMIC SLIGHT; LYMPHOCYTE 4 % (20-40); MONOCYTE 6 % (0-10); NEUTROPHIL 90 % (50-75); PLATELET ESTIMATE SLIGHTLY DECREASED (NORMAL); POLYCHROMIC SLIGHT; TARGET CELLS SLIGHT; TOTAL CELLS COUNTED 100
[2017-11-20] MEDS: Vancomycin 1 GM in Sodium Chloride 0.9% 200 ML IVPB SCH (11:53)
--- NOTE | 2017-11-20 12:28 | CP.PCM.PN ---
Subjective - Date & Time of Evaluation Date of Evaluation: 11/20/17 Time of Evaluation: 10:00 - Subjective Subjective: events noted iv rx renewed Objective - Vital Signs/Intake and Output Vital Signs (last 24 hours): Temp Pulse Resp BP Pulse Ox 98.4 F 99 H 20 162/84 H 97 11/19/17 23:40 11/19/17 23:40 11/19/17 23:40 11/19/17 23:40 11/19/17 23:40 - Medications Medications: Current Medications Albuterol/Ipratropium (Duoneb 3 Mg/0.5 Mg (3 Ml) Ud) 3 ml INH RQ6 [facility] Last Admin: 11/20/17 07:13 Dose: 3 ml Heparin Sodium (Porcine) (Heparin) 5,000 units SC Q8 [facility] Last Admin: 11/20/17 05:41 Dose: 5,000 units Cefepime HCl (Maxipime Iv 1 Gm Premix) 1 gm in 50 mls @ 100 mls/hr IVPB Q12H [facility] Last Admin: 11/20/17 05:40 Dose: 100 mls/hr Vancomycin HCl 1 gm/ Sodium (Chloride) 200 mls @ 166.7 mls/hr IVPB Q24H [facility] Last Admin: 11/20/17 11:53 Dose: 166.7 mls/hr Methylprednisolone (Solu-Medrol) 40 mg IVP Q6 [facility] Last Admin: 11/20/17 11:55 Dose: 40 mg Pantoprazole Sodium (Protonix Inj) 40 mg IVP DAILY [facility] Last Admin: 11/20/17 09:27 Dose: 40 mg Tiotropium [place] (Spiriva) 18 mcg INH RQ24 [facility] Last Admin: 11/20/17 07:14 Dose: Not Given - Labs Labs: 11/20/17 09:42 11/20/17 09:42 PT 15.4 SECONDS (9.7-12.2) H 11/20/17 09:42 INR 1.3 11/20/17 09:42 APTT 58 SECONDS (21-34) H 11/17/17 11:21 - Constitutional Appears: Non-toxic, Chronically Ill - Head Exam Head Exam: NORMOCEPHALIC - Eye Exam Eye Exam: PERRL - ENT Exam ENT Exam: Mucous Membranes Dry - Neck Exam Neck Exam: absent: Lymphadenopathy - Respiratory Exam Respiratory Exam: Decreased Breath Sounds - Cardiovascular Exam Cardiovascular Exam: REGULAR RHYTHM - GI/Abdominal Exam GI & Abdominal Exam: Distended Assessment and Plan (1) Acute hypercapnic respiratory failure Status: Acute (2) Hypothermia Status: Acute (3) Syncope and collapse Status: Acute (4) Toxic metabolic encephalopathy Status: Acute (5) CHF (congestive heart failure) Status: Acute (6) COPD exacerbation Status: Acute (7) Chr obstructive pulmonary disease w/ acute lower respiratory infxn Status: Acute
[2017-11-20 12:52] LABS: ABG ALLEN TEST POS; ARTERIAL BLOOD GAS HEMOGLOBIN 10.5 g/dL (11.7-17.4); ARTERIAL BLOOD GAS PCO2 45 mm/Hg (35-45); ARTERIAL BLOOD GAS PH 7.59 (7.35-7.45); ARTERIAL BLOOD GAS PO2 67 mm/Hg (80-100); ARTERIAL BLOOD GAS TCO2 44.6 mmol/L (22-28)
--- NOTE | 2017-11-20 18:10 | CP.PCM.PN ---
Subjective - Date & Time of Evaluation Date of Evaluation: 11/21/17 Time of Evaluation: 10:00 - Subjective Subjective: Pt was seen and evaluated at bedside. Pt awake and alert, but confused. Afebrile. On 3L O2 NC. Denies shortness of breath, chest pain, cough. pCO2 133 on 11/18/17, will repeat ABG. Objective - Vital Signs/Intake and Output Vital Signs (last 24 hours): Temp Pulse Resp BP Pulse Ox 98.4 F 90 20 162/84 H 97 11/19/17 23:40 11/20/17 13:16 11/19/17 23:40 11/19/17 23:40 11/19/17 23:40 - Medications Medications: Current Medications Albuterol/Ipratropium (Duoneb 3 Mg/0.5 Mg (3 Ml) Ud) 3 ml INH RQ6 [facility] Last Admin: 11/20/17 13:16 Dose: 3 ml Heparin Sodium (Porcine) (Heparin) 5,000 units SC Q8 [facility] Last Admin: 11/20/17 14:05 Dose: 5,000 units Cefepime HCl (Maxipime Iv 1 Gm Premix) 1 gm in 50 mls @ 100 mls/hr IVPB Q12H [facility] Last Admin: 11/20/17 05:40 Dose: 100 mls/hr Vancomycin HCl 1 gm/ Sodium (Chloride) 200 mls @ 166.7 mls/hr IVPB Q24H [facility] Last Admin: 11/20/17 11:53 Dose: 166.7 mls/hr Methylprednisolone (Solu-Medrol) 40 mg IVP Q6 [facility] Last Admin: 11/20/17 11:55 Dose: 40 mg Pantoprazole Sodium (Protonix Inj) 40 mg IVP DAILY [facility] Last Admin: 11/20/17 09:27 Dose: 40 mg Tiotropium [place] (Spiriva) 18 mcg INH RQ24 [facility] Last Admin: 11/20/17 07:14 Dose: Not Given - Labs Labs: 11/20/17 09:42 11/20/17 09:42 PT 15.4 SECONDS (9.7-12.2) H 11/20/17 09:42 INR 1.3 11/20/17 09:42 APTT 58 SECONDS (21-34) H 11/17/17 11:21 - Head Exam Head Exam: ATRAUMATIC, NORMOCEPHALIC - ENT Exam ENT Exam: Mucous Membranes Moist - Neck Exam Neck Exam: Normal Inspection - Respiratory Exam Respiratory Exam: Decreased Breath Sounds - Cardiovascular Exam Cardiovascular Exam: REGULAR RHYTHM - GI/Abdominal Exam GI & Abdominal Exam: Soft, Normal Bowel Sounds Assessment and Plan (1) Acute hypercapnic respiratory failure Assessment & Plan: CONTINUE iv STEROIDS bIpap fOLLOW-UP abg Status: Acute (2) COPD exacerbation Status: Acute
--- NOTE | 2017-11-20 18:42 | CP.PCM.PN ---
Subjective - Date & Time of Evaluation Date of Evaluation: 11/20/17 Time of Evaluation: 09:00 - Subjective Subjective: clinically same Objective - Vital Signs/Intake and Output Vital Signs (last 24 hours): Temp Pulse Resp BP Pulse Ox 98.4 F 90 20 162/84 H 97 11/19/17 23:40 11/20/17 13:16 11/19/17 23:40 11/19/17 23:40 11/19/17 23:40 - Medications Medications: Current Medications Albuterol/Ipratropium (Duoneb 3 Mg/0.5 Mg (3 Ml) Ud) 3 ml INH RQ6 [facility] Last Admin: 11/20/17 13:16 Dose: 3 ml Heparin Sodium (Porcine) (Heparin) 5,000 units SC Q8 [facility] Last Admin: 11/20/17 14:05 Dose: 5,000 units Cefepime HCl (Maxipime Iv 1 Gm Premix) 1 gm in 50 mls @ 100 mls/hr IVPB Q12H [facility] Last Admin: 11/20/17 05:40 Dose: 100 mls/hr Vancomycin HCl 1 gm/ Sodium (Chloride) 200 mls @ 166.7 mls/hr IVPB Q24H [facility] Last Admin: 11/20/17 11:53 Dose: 166.7 mls/hr Methylprednisolone (Solu-Medrol) 40 mg IVP Q6 [facility] Last Admin: 11/20/17 11:55 Dose: 40 mg Pantoprazole Sodium (Protonix Inj) 40 mg IVP DAILY [facility] Last Admin: 11/20/17 09:27 Dose: 40 mg Tiotropium [place] (Spiriva) 18 mcg INH RQ24 [facility] Last Admin: 11/20/17 07:14 Dose: Not Given - Labs Labs: 11/20/17 09:42 11/20/17 09:42 PT 15.4 SECONDS (9.7-12.2) H 11/20/17 09:42 INR 1.3 11/20/17 09:42 APTT 58 SECONDS (21-34) H 11/17/17 11:21
[2017-11-21] MEDS: MethylPREDNISolone 40 mg Vial IVP SCH ×5 (00:16→23:25)
[2017-11-21] MEDS: Albuterol-Ipratrop 3 mg / 0.5 (3 ml) UD INH SCH ×3 (01:28→13:10)
[2017-11-21] MEDS: Cefepime IV 1 gm in Dextrose 1 GM/50 ML BAG IVPB SCH ×2 (05:30→18:32)
--- NOTE | 2017-11-21 08:30 | CP.PCM.PN ---
Subjective - Date & Time of Evaluation Date of Evaluation: 11/21/17 Time of Evaluation: 08:00 - Subjective Subjective: clinically same Objective - Vital Signs/Intake and Output Vital Signs (last 24 hours): Temp Pulse Resp BP Pulse Ox 97.5 F L 90 20 168/88 H 99 11/21/17 00:00 11/21/17 05:14 11/21/17 00:00 11/21/17 00:00 11/21/17 00:00 Intake and Output: 11/21/17 11/21/17 06:59 18:59 Intake Total 480 480 Output Total 250 Balance 230 480 - Medications Medications: Current Medications Albuterol/Ipratropium (Duoneb 3 Mg/0.5 Mg (3 Ml) Ud) 3 ml INH RQ6 [facility] Last Admin: 11/21/17 07:47 Dose: 3 ml Heparin Sodium (Porcine) (Heparin) 5,000 units SC Q8 [facility] Last Admin: 11/21/17 05:30 Dose: 5,000 units Cefepime HCl (Maxipime Iv 1 Gm Premix) 1 gm in 50 mls @ 100 mls/hr IVPB Q12H [facility] Last Admin: 11/21/17 05:30 Dose: 100 mls/hr Vancomycin HCl 1 gm/ Sodium (Chloride) 200 mls @ 166.7 mls/hr IVPB Q24H [facility] Last Admin: 11/20/17 11:53 Dose: 166.7 mls/hr Methylprednisolone (Solu-Medrol) 40 mg IVP Q6 [facility] Last Admin: 11/21/17 05:30 Dose: 40 mg Pantoprazole Sodium (Protonix Inj) 40 mg IVP DAILY [facility] Last Admin: 11/20/17 09:27 Dose: 40 mg Tiotropium [place] (Spiriva) 18 mcg INH RQ24 [facility] Last Admin: 11/20/17 07:14 Dose: Not Given - Labs Labs: 11/20/17 09:42 11/20/17 09:42 PT 15.4 SECONDS (9.7-12.2) H 11/20/17 09:42 INR 1.3 11/20/17 09:42 APTT 58 SECONDS (21-34) H 11/17/17 11:21
[2017-11-21] MEDS ORDERED: Lidocaine/Epi 1% 1:100000 20 ML IJ ONE ×2 (09:13→09:20)
[2017-11-21] MEDS ORDERED: Lactated Ringer's 1,000 ML IV ONE ×2 (09:25→11:10)
[2017-11-21] MEDS ORDERED: Midazolam 2 MG/2 ML VIAL ONE (09:50)
[2017-11-21] MEDS ORDERED: Propofol 10 mg/ml Inj (20 ML) ONE (09:50)
[2017-11-21] MEDS ORDERED: Naloxone 0.4 mg/ml Inj (Adult) ONE (10:51)
--- NOTE | 2017-11-21 11:01 | CP.PCM.PN ---
Subjective - Date & Time of Evaluation Date of Evaluation: 11/21/17 Time of Evaluation: 07:00 - Subjective Subjective: vanco / cefepime renewed await bx of mass cont rrx pneumonia Objective - Vital Signs/Intake and Output Vital Signs (last 24 hours): Temp Pulse Resp BP Pulse Ox 97.3 F L 87 20 161/83 H 98 11/21/17 08:00 11/21/17 09:31 11/21/17 08:00 11/21/17 09:31 11/21/17 08:00 Intake and Output: 11/21/17 11/21/17 06:59 18:59 Intake Total 480 480 Output Total 250 Balance 230 480 - Medications Medications: Current Medications Albuterol/Ipratropium (Duoneb 3 Mg/0.5 Mg (3 Ml) Ud) 3 ml INH RQ6 [facility] Last Admin: 11/21/17 07:47 Dose: 3 ml Heparin Sodium (Porcine) (Heparin) 5,000 units SC Q8 [facility] Last Admin: 11/21/17 05:30 Dose: 5,000 units Hydralazine HCl (Apresoline) 5 mg IVP Q8H PRN PRN Reason: for SBP 180 and above Last Admin: 11/21/17 08:57 Dose: 5 mg Cefepime HCl (Maxipime Iv 1 Gm Premix) 1 gm in 50 mls @ 100 mls/hr IVPB Q12H [facility] Last Admin: 11/21/17 05:30 Dose: 100 mls/hr Vancomycin HCl 1 gm/ Sodium (Chloride) 200 mls @ 166.7 mls/hr IVPB Q24H [facility] Last Admin: 11/20/17 11:53 Dose: 166.7 mls/hr Methylprednisolone (Solu-Medrol) 40 mg IVP Q6 [facility] Last Admin: 11/21/17 05:30 Dose: 40 mg Pantoprazole Sodium (Protonix Inj) 40 mg IVP DAILY [facility] Last Admin: 11/20/17 09:27 Dose: 40 mg Tiotropium [place] (Spiriva) 18 mcg INH RQ24 [facility] Last Admin: 11/20/17 07:14 Dose: Not Given - Labs Labs: 11/20/17 09:42 11/20/17 09:42 PT 15.4 SECONDS (9.7-12.2) H 01/08/18 09:42 INR 1.3 11/20/17 09:42 APTT 58 SECONDS (21-34) H 11/17/17 11:21 - Constitutional Appears: Confused, Chronically Ill - Head Exam Head Exam: NORMOCEPHALIC - Eye Exam Eye Exam: PERRL - ENT Exam ENT Exam: Mucous Membranes Dry - Neck Exam Neck Exam: absent: Lymphadenopathy - Respiratory Exam Respiratory Exam: Decreased Breath Sounds - Cardiovascular Exam Cardiovascular Exam: REGULAR RHYTHM - GI/Abdominal Exam GI & Abdominal Exam: Distended Assessment and Plan (1) Acute hypercapnic respiratory failure Status: Acute (2) Hypothermia Status: Acute (3) Syncope and collapse Status: Acute (4) Toxic metabolic encephalopathy Status: Acute (5) CHF (congestive heart failure) Status: Acute (6) COPD exacerbation Status: Acute (7) Chr obstructive pulmonary disease w/ acute lower respiratory infxn Status: Acute
--- NOTE | 2017-11-21 11:14 | PCM.SURG1 ---
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 Direct microlarygoscopy with biopsy of R arytenoid mass Specimen/Specimens Removed: 1. Tracheal cartilage. 2. R arytenoid mass Estimated Blood Loss: EBL {In ML}: 5 Blood Products Given: N/A Drains Used: No Drains Post-Op Condition: Fair Date of Surgery/Procedure: 11/21/17 Time of Surgery/Procedure: 09:25
[2017-11-21] MEDS: Vancomycin 1 GM in Sodium Chloride 0.9% 200 ML IVPB SCH (13:08)
[2017-11-21] MEDS: Dextrose 5%/0.45% NS 1,000 ML IV SCH ×2 (13:09→21:39)
--- NOTE | 2017-11-21 18:30 | CP.PCM.PN ---
Subjective - Date & Time of Evaluation Date of Evaluation: 11/21/17 Time of Evaluation: 13:00 - Subjective Subjective: Pt went for laryngoscopy and tracheostomy today. Labs reviewed. 11/20 ABG: pCO2: 45, pO2: 67, HCO3: 40, pH: 7. 59 hypercapneic respiratory failure continue IV steroids continue nebulizer treatment continue BiPAP Repeat ABG 11/20 ABG: pCO2: 45, pO2: 67, HCO3: 40, pH: 7. 59 Objective - Vital Signs/Intake and Output Vital Signs (last 24 hours): Temp Pulse Resp BP Pulse Ox 98.0 F 145 H 22 124/85 93 L 11/21/17 15:00 11/21/17 15:00 11/21/17 15:00 11/21/17 15:00 11/21/17 15:00 Intake and Output: 11/21/17 11/21/17 06:59 18:59 Intake Total 480 680 Output Total 250 Balance 230 680 - Medications Medications: Current Medications Albuterol/Ipratropium (Duoneb 3 Mg/0.5 Mg (3 Ml) Ud) 3 ml INH RQ6 [facility] Last Admin: 11/21/17 13:10 Dose: Not Given Heparin Sodium (Porcine) (Heparin) 5,000 units SC Q8 [facility] Last Admin: 11/21/17 05:30 Dose: 5,000 units Hydralazine HCl (Apresoline) 5 mg IVP Q8H PRN PRN Reason: for SBP 180 and above Last Admin: 11/21/17 08:57 Dose: 5 mg Cefepime HCl (Maxipime Iv 1 Gm Premix) 1 gm in 50 mls @ 100 mls/hr IVPB Q12H [facility] Last Admin: 11/21/17 05:30 Dose: 100 mls/hr Vancomycin HCl 1 gm/ Sodium (Chloride) 200 mls @ 166.7 mls/hr IVPB Q24H [facility] Last Admin: 11/21/17 13:08 Dose: 200 mls Dextrose/Sodium Chloride (Dextrose 5%/0.45% Ns 1000 Ml) 1,000 mls @ 100 mls/hr IV .Q10H [facility] Methylprednisolone (Solu-Medrol) 40 mg IVP Q6 [facility] Last Admin: 11/21/17 13:05 Dose: 40 mg Pantoprazole Sodium (Protonix Inj) 40 mg IVP DAILY [facility] Last Admin: 11/20/17 09:27 Dose: 40 mg Tiotropium [place] (Spiriva) 18 mcg INH RQ24 [facility] Last Admin: 11/20/17 07:14 Dose: Not Given - Labs Labs: 11/20/17 09:42 11/20/17 09:42 PT 15.4 SECONDS (9.7-12.2) H 11/20/17 09:42 INR 1.3 11/20/17 09:42 APTT 58 SECONDS (21-34) H 11/17/17 11:21 Assessment and Plan (1) Acute hypercapnic respiratory failure Status: Acute (2) COPD exacerbation Status: Acute
--- NOTE | 2017-11-21 21:28 | OP ---
PROCEDURE DATE: 11/21/2017 PREOPERATIVE DIAGNOSES: Airway obstruction, right glottic lesion and supraglottic lesion. POSTOPERATIVE DIAGNOSES: Airway obstruction, right glottic lesion and supraglottic lesion. SIGNIFICANT FINDINGS: Right supraglottic and glottic lesions, airway obstruction. DESCRIPTION OF PROCEDURE: Patient was brought into the room, placed in the supine position. Patient was attempted to be intubated; however, it was noted that the ET tube could not be advanced, therefore attempt to intubate was aborted. The patient had shoulder roll placed, neck extended. Patient was prepped and draped in the usual manner. The neck was injected with lidocaine with epinephrine. A vertical incision was made in the neck anteriorly in the midline at the level of the cricoid going inferiorly. Dissection was then made down to the strap muscles, which were in the midline. The isthmus was cut. The trachea was exposed. A 7-mm window was made anteriorly in the midline in the second tracheal ring. A #6 nonfenestrated cuffed trach tube was inserted. Stay sutures were placed and the position was checked using anesthesia machine. Next, the bed was turned. A direct laryngoscope was inserted into the oral cavity after a tooth guard was placed over the upper teeth in order to protect them. The tooth guard remained there until the end of the case. The direct laryngoscope was passed through the oropharynx and hypopharynx, the base of tongue, vallecula, epiglottis, AE folds, false cords, true cords as well as the pharyngeal mueller were brought into view. A lesion was noted in the right supraglottis extending from the right AE fold to the arytenoids and vocal cords and false cords. The direct laryngoscope was suspended on the Rodriguez photo machine operator the usual manner. A microscope was brought into the place in order to view the lesion. It was noted to be on the AE folds of the arytenoid to the false cords and true cords. Multiple biopsies were taken while viewing it through a microscope. The microscope was taken out of position. The direct laryngoscope was taken off suspension and removed. The tooth guard was removed. The patient was taken to the recovery room in stable manner. Corwin Dia MD [facility] # [id number]
[2017-11-21] MEDS: Tiotropium 18 mcg Cap For Inhalation INH SCH (21:51)
[2017-11-22] MEDS: Albuterol-Ipratrop 3 mg / 0.5 (3 ml) UD INH SCH ×4 (01:22→19:54)
--- NOTE | 2017-11-22 03:48 | CARD ---
APPROVED REPORT EXAM: Two-dimensional and M-mode echocardiogram with Doppler and color Doppler. Other Information Quality : GoodRhythm : INDICATION Syncope Congestive Heart Failure COPD DIZZINESS, RESP FAILURE, S/P COLLAPSE 2D DIMENSIONS IVSd1.2 (0.7-1.1cm)LVDd3.8 (3.9-5.9cm) PWd1.3 (0.7-1.1cm)LVDs3.1 (2.5-4.0cm) FS (%) 18.2 %LVEF (%)50.0 (>50%) M-Mode DIMENSIONS Left Atrium (MM)1.30 (2.5-4.0cm)Aortic Root2.97 (2.2-3.7cm) LVEF (%)50 (>50%) Mitral Valve MV E Suoagujg86.5cm/sMV A Bzhoxjtl70.3cm/sE/A ratio0.9 TDI E/Lateral E'0.0E/Medial E'0.0 Tricuspid Valve TR Peak Scrhwpss990ug/sTR Peak Gr.[id number] LEFT VENTRICLE The left ventricle is normal size. There is mild concentric left ventricular hypertrophy. Left ventricle systolic function is normal. The Ejection Fraction is 50%. There is normal LV segmental wall motion. Tissue Doppler imaging reveals abnormal left ventricular diastolic dysfunction. RIGHT VENTRICLE The right ventricle is normal size. There is normal right ventricular wall thickness. The right ventricular systolic function is normal. ATRIA The left atrium size is normal. The right atrium size is normal. The interatrial septum is intact with no evidence for an atrial septal defect. AORTIC VALVE The aortic valve is calcified and thickened and displays decreased opening. Can't rule out vegetation. Please correlate clinically. The aortic valve is probably bicuspid. No aortic regurgitation is present. There is mild valvular aortic stenosis. MITRAL VALVE A mild mitral valve prolapse is present. There is no mitral valve stenosis. Mitral regurgitation is mild. TRICUSPID VALVE The tricuspid valve is normal in structure. There is mild to moderate tricuspid regurgitation. Right ventricular systolic pressure is estimated at 50-60 mmHg. There is moderate pulmonary hypertension. PULMONIC VALVE The pulmonic valve is not well visualized. There is no pulmonic valvular regurgitation. GREAT VESSELS The aortic root is normal in size. PERICARDIAL EFFUSION There is no significant pericardial effusion. <Conclusion> Left ventricle systolic function is normal. The Ejection Fraction is 50%. Hypertensive heart disease. Diastolic dysfunction. The aortic valve is probably bicuspid. No aortic regurgitation is present. There is mild valvular aortic stenosis. Can't rule out vegetations. A mild mitral valve prolapse is present. Mitral regurgitation is mild. There is mild to moderate tricuspid regurgitation. There is moderate pulmonary hypertension. There is no pulmonic valvular regurgitation.
[2017-11-22] MEDS: Dextrose 5%/0.45% NS 1,000 ML IV SCH ×2 (04:25→19:08)
[2017-11-22] MEDS: Cefepime IV 1 gm in Dextrose 1 GM/50 ML BAG IVPB SCH ×2 (05:17→17:42)
[2017-11-22] MEDS: MethylPREDNISolone 40 mg Vial IVP SCH ×3 (05:19→17:42)
[2017-11-22 07:37] LABS: ALB/GLOB RATIO 0.8 (1.0-2.1); ALBUMIN 2.6 g/dL (3.5-5.0); ALT/SGPT 30 U/L (21-72); AST/SGOT 29 U/L (17-59); BLOOD UREA NITROGEN 20 mg/dL (9-20); CALCIUM 7.8 mg/dl (8.6-10.4); GFR AFRICAN-AMERICAN > 60; GFR NON-AFRICAN AMERICAN > 60; MAGNESIUM 1.9 mg/dL (1.6-2.3)
[2017-11-22 08:02] LABS: BASO % 0.1 % (0.0-2.0); HEMOGLOBIN 12.3 g/dL (12.0-18.0); LYMPH # 0.6 K/uL (1.0-4.3); LYMPH % 13.2 % (20.0-40.0); MEAN CELL VOLUME 86.8 fL (80.0-94.0); MEAN CORPUSCULAR HEMOGLOBIN 27.7 pg (27.0-31.0); MEAN CORPUSCULAR HGB CONC 31.9 g/dL (33.0-37.0); MEAN PLATELET VOLUME 8.5 fL (7.2-11.7); MONO # 0.2 K/uL (0.0-0.8); MONO % 3.2 % (0.0-10.0); NEUT # 4.1 K/uL (1.8-7.0); NEUT % 83.5 % (50.0-75.0); RBC 4.43 Mil/uL (4.40-5.90); RED CELL DISTRIBUTION WIDTH 17.1 % (11.5-14.5); WHITE BLOOD COUNT 4.9 K/uL (4.8-10.8)
--- NOTE | 2017-11-22 08:10 | CP.PCM.PN ---
Subjective - Date & Time of Evaluation Date of Evaluation: 11/22/17 Time of Evaluation: 07:20 - Subjective Subjective: clinically same Objective - Vital Signs/Intake and Output Vital Signs (last 24 hours): Temp Pulse Resp BP Pulse Ox 97.5 F L 72 9 L 164/89 H 100 11/22/17 04:00 11/22/17 07:00 11/22/17 07:00 11/22/17 06:11 11/22/17 07:00 Intake and Output: 11/22/17 11/22/17 06:59 18:59 Intake Total 1050 100 Output Total 900 Balance 150 100 - Medications Medications: Current Medications Albuterol/Ipratropium (Duoneb 3 Mg/0.5 Mg (3 Ml) Ud) 3 ml INH RQ6 [facility] Last Admin: 11/22/17 07:25 Dose: 3 ml Heparin Sodium (Porcine) (Heparin) 5,000 units SC Q12 [facility] Hydralazine HCl (Apresoline) 5 mg IVP Q8H PRN PRN Reason: for SBP 180 and above Last Admin: 11/21/17 08:57 Dose: 5 mg Cefepime HCl (Maxipime Iv 1 Gm Premix) 1 gm in 50 mls @ 100 mls/hr IVPB Q12H [facility] Last Admin: 11/22/17 05:17 Dose: 100 mls/hr Vancomycin HCl 1 gm/ Sodium (Chloride) 200 mls @ 166.7 mls/hr IVPB Q24H [facility] Last Admin: 11/21/17 13:08 Dose: 200 mls Dextrose/Sodium Chloride (Dextrose 5%/0.45% Ns 1000 Ml) 1,000 mls @ 100 mls/hr IV .Q10H [facility] Last Admin: 11/22/17 04:25 Dose: 100 mls/hr Methylprednisolone (Solu-Medrol) 40 mg IVP Q6 [facility] Last Admin: 11/22/17 05:19 Dose: 40 mg Pantoprazole Sodium (Protonix Inj) 40 mg IVP DAILY [facility] Last Admin: 11/20/17 09:27 Dose: 40 mg Tiotropium [place] (Spiriva) 18 mcg INH RQ24 [facility] Last Admin: 11/21/17 21:51 Dose: Not Given - Labs Labs: 11/22/17 06:37 11/22/17 06:37 PT 15.4 SECONDS (9.7-12.2) H 11/20/17 09:42 INR 1.3 11/20/17 09:42 APTT 58 SECONDS (21-34) H 11/17/17 11:21
--- NOTE | 2017-11-22 10:26 | RAD ---
HISTORY: s/p trach COMPARISON: Portable chest 11/16/2017. FINDINGS: A tracheostomy tube is now identified placed terminating in the plane of the midline trachea prostate 5.5 cm above the level the katia. LUNGS: Bibasilar atelectasis or infiltrate is likely unchanged. PLEURA: Bilateral pleural effusions may be increased slightly bilaterally and remain mild and overall volumes. Differences in appearance may be a function of differences in semi-erect positioning of the patient. CARDIOVASCULAR: Stable cardiac silhouette. No definite pulmonary vascular derangement. OSSEOUS STRUCTURES: No significant abnormalities. VISUALIZED UPPER ABDOMEN: Normal. OTHER FINDINGS: None. IMPRESSION: Consider potential mild increase in bilateral pleural effusions with underlying atelectasis or infiltrates remaining. No interval pneumothorax bilaterally. Interval tracheostomy as described above.
--- NOTE | 2017-11-22 10:47 | CP.PCM.PN ---
Subjective - Date & Time of Evaluation Date of Evaluation: 11/22/17 Time of Evaluation: 10:44 - Subjective Subjective: ENT Surgery Note for Dr. Dia Patient seen and examined at bedside. No acute event overnight. Patient is s/p open tracheostomy POD #1. Objective - Vital Signs/Intake and Output Vital Signs (last 24 hours): Temp Pulse Resp BP Pulse Ox 97.7 F 79 9 L 127/79 98 11/22/17 08:00 11/22/17 10:11 11/22/17 10:11 11/22/17 10:11 11/22/17 10:11 Intake and Output: 11/22/17 11/22/17 06:59 18:59 Intake Total 1050 400 Output Total 900 Balance 150 400 - Medications Medications: Current Medications Albuterol/Ipratropium (Duoneb 3 Mg/0.5 Mg (3 Ml) Ud) 3 ml INH RQ6 [facility] Last Admin: 11/22/17 07:25 Dose: 3 ml Heparin Sodium (Porcine) (Heparin) 5,000 units SC Q12 [facility] Last Admin: 11/22/17 09:13 Dose: 5,000 units Hydralazine HCl (Apresoline) 5 mg IVP Q8H PRN PRN Reason: for SBP 180 and above Last Admin: 11/21/17 08:57 Dose: 5 mg Cefepime HCl (Maxipime Iv 1 Gm Premix) 1 gm in 50 mls @ 100 mls/hr IVPB Q12H [facility] Last Admin: 11/22/17 05:17 Dose: 100 mls/hr Vancomycin HCl 1 gm/ Sodium (Chloride) 200 mls @ 166.7 mls/hr IVPB Q24H [facility] Last Admin: 11/21/17 13:08 Dose: 200 mls Dextrose/Sodium Chloride (Dextrose 5%/0.45% Ns 1000 Ml) 1,000 mls @ 100 mls/hr IV .Q10H [facility] Last Admin: 11/22/17 04:25 Dose: 100 mls/hr Methylprednisolone (Solu-Medrol) 40 mg IVP Q6 [facility] Last Admin: 11/22/17 05:19 Dose: 40 mg Pantoprazole Sodium (Protonix Inj) 40 mg IVP DAILY [facility] Last Admin: 11/22/17 09:22 Dose: 40 mg Tiotropium [place] (Spiriva) 18 mcg INH RQ24 [facility] Last Admin: 11/21/17 21:51 Dose: Not Given - Labs Labs: 11/22/17 06:37 11/22/17 06:37 PT 15.4 SECONDS (9.7-12.2) H 11/20/17 09:42 INR 1.3 11/20/17 09:42 APTT 58 SECONDS (21-34) H 11/17/17 11:21 - Constitutional Appears: No Acute Distress - Head Exam Head Exam: ATRAUMATIC, NORMOCEPHALIC - Eye Exam Eye Exam: Normal appearance - ENT Exam Additional comments: s/p tracheostomy - Respiratory Exam Respiratory Exam: Decreased Breath Sounds, NORMAL BREATHING PATTERN - Cardiovascular Exam Cardiovascular Exam: REGULAR RHYTHM - GI/Abdominal Exam GI & Abdominal Exam: Soft. absent: Tenderness - Neurological Exam Neurological Exam: Awake - Psychiatric Exam Psychiatric exam: Flat Affect - Skin Skin Exam: Dry, Warm Assessment and Plan - Assessment and Plan (Free Text) Plan: 72 M with PMH of glottic mass with obstruction s/p tracheostomy POD#1 -Remove packing -Deflate cuff -Sutures will stay in place for now -Management as per ICU -Will discuss with Dr. Ifeoma Cintron PGY1
--- NOTE | 2017-11-22 11:11 | CP.CCUPN ---
<Sarah Britton - Last Filed: 11/22/17 11:08> CCU Subjective - Physician Review Subjective (Free Text): 11/22/17 11:08 Patient seen and examined at bedside. No acute events overnight. Patient resting comfortably in bed with no new complaints at this time. Patient unable to speak s/p trach but he is alert and shake his head yes/no to questions. CCU Objective - Vital Signs / Intake & Output Vital Signs (Last 4 hours): Vital Signs Temp Pulse Resp BP Pulse Ox 11/22/17 10:11 79 9 L 127/79 98 11/22/17 10:00 82 12 98 11/22/17 09:11 73 8 L 133/80 11/22/17 09:00 73 9 L 98 11/22/17 08:11 74 10 L 129/77 100 11/22/17 08:00 97.7 F 73 11 L 100 11/22/17 07:11 73 9 L 153/87 H 100 Intake and Output (Last 8hrs): Intake & Output 11/21/17 11/22/17 11/22/17 22:59 06:59 14:59 Intake Total 350 750 400 Output Total 300 600 Balance 50 150 400 Weight 149 lb Intake: IV 50 Intake, IV Amount 300 750 400 Right Forearm 300 750 400 Oral 0 0 0 Output: Urine 300 600 Condom 200 600 Other: # Voids Condom 0 # Bowel Movements 0 0 0 - Physical Exam Head: Positive for: Atraumatic, Normocephalic Pupils: Positive for: PERRL Extroacular Muscles: Positive for: EOMI Conjunctiva: Positive for: Normal Mouth: Positive for: Moist Mucous Membranes Neck: Positive for: Other (s/p trach ) Respiratory/Chest: Positive for: Good Air Exchange. Negative for: Respiratory Distress, Wheezes, Rales, Rhonchi Cardiovascular: Positive for: Regular Rate and Rhythm, Normal S1, S2 Abdomen: Positive for: Normal Bowel Sounds. Negative for: Tenderness, Distention, Peritoneal Signs Upper Extremity: Positive for: Normal Inspection Lower Extremity: Positive for: Normal Inspection Neurological: Positive for: GCS=15 Psychiatric: Positive for: Alert - Medications Active Medications: Active Medications Generic Name Dose Route Start Last Admin Trade Name Freq PRN Reason Stop Dose Admin Albuterol/Ipratropium 3 ml 11/11/17 20:00 11/22/17 07:25 Duoneb 3 Mg/0.5 Mg (3 Ml) Ud INH 3 ml RQ6 JUANA Administration Heparin Sodium (Porcine) 5,000 units 11/22/17 10:00 11/22/17 09:13 Heparin SC 5,000 units Q12 JUANA Administration Hydralazine HCl 5 mg 11/21/17 08:39 11/21/17 08:57 Apresoline IVP 5 mg Q8H PRN Administration for SBP 180 and above Cefepime HCl 1 gm in 50 mls @ 100 mls/hr 11/14/17 18:00 11/22/17 05:17 Maxipime Iv 1 Gm Premix IVPB 100 mls/hr Q12H JUANA Administration Vancomycin HCl 1 gm/ Sodium 200 mls @ 166.7 mls/hr 11/16/17 12:00 11/21/17 13 :08 Chloride IVPB 200 mls Q24H JUANA Administration Dextrose/Sodium Chloride 1,000 mls @ 100 mls/hr 11/21/17 18:30 11/22/17 04:25 Dextrose 5%/0.45% Ns 1000 Ml IV 100 mls/hr .Q10H JUANA Administration Methylprednisolone 40 mg 11/15/17 12:00 11/22/17 05:19 Solu-Medrol IVP 40 mg Q6 JUANA Administration Pantoprazole Sodium 40 mg 11/11/17 17:30 11/22/17 09:22 Protonix Inj IVP 40 mg DAILY JUANA Administration Tiotropium [place] 18 mcg 11/13/17 08:00 11/21/17 21:51 Spiriva INH Not Given RQ24 JUANA - Patient Studies Lab Studies: Microbiology Studies 11/17/17 14:53 Gram Stain - Final Pleural Fluid Body Fluid Culture - Final No growth. Lab Studies 11/22/17 11/22/17 11/22/17 Range/Units 07:20 06:37 06:37 WBC 4.9 (4.8-10.8) K/uL RBC 4.43 (4.40-5.90) Mil/uL Hgb 12.3 (12.0-18.0) g/dL Hct 38.5 (35.0-51.0) % MCV 86.8 (80.0-94.0) fL MCH 27.7 (27.0-31.0) pg MCHC 31.9 L (33.0-37.0) g/dL RDW 17.1 H (11.5-14.5) % Plt Count 120 L (130-400) K/uL MPV 8.5 (7.2-11.7) fL Neut % (Auto) 83.5 H (50.0-75.0) % Lymph % (Auto) 13.2 L (20.0-40.0) % Stephenson % (Auto) 3.2 (0.0-10.0) % Eos % (Auto) 0.0 (0.0-4.0) % Baso % (Auto) 0.1 (0.0-2.0) % Neut # 4.1 (1.8-7.0) K/uL Lymph # 0.6 L (1.0-4.3) K/uL Stephenson # 0.2 (0.0-0.8) K/uL Eos # 0.0 (0.0-0.7) K/uL Baso # 0.0 (0.0-0.2) K/uL Sodium 126 L (132-148) mmol/L Potassium 3.5 L (3.6-5.2) mmol/L Chloride 84 L (98-107) mmol/L Carbon Dioxide 40 H* (22-30) mmol/L Anion Gap 6 L (10-20) BUN 20 (9-20) mg/dL Creatinine 0.4 L (0.8-1.5) mg/dL Est GFR ( Amer) > 60 Est GFR (Non-Af Amer) > 60 POC Glucose (mg/dL) 135 H (65-110) mg/dL Random Glucose 118 H (75-110) mg/dL Calcium 7.8 L (8.6-10.4) mg/dl Phosphorus 2.9 (2.5-4.5) mg/dL Magnesium 1.9 (1.6-2.3) mg/dL Total Bilirubin 1.5 H (0.2-1.3) mg/dL AST 29 (17-59) U/L ALT 30 (21-72) U/L Alkaline Phosphatase 57 (38-126) U/L Total Protein 5.9 L (6.3-8.3) g/dL Albumin 2.6 L (3.5-5.0) g/dL Globulin 3.3 (2.2-3.9) gm/dL Albumin/Globulin Ratio 0.8 L (1.0-2.1) Vancomycin Trough (5.0-10.0) ug/mL 11/22/17 11/21/17 11/21/17 Range/Units 06:37 21:51 16:30 WBC (4.8-10.8) K/uL RBC (4.40-5.90) Mil/uL Hgb (12.0-18.0) g/dL Hct (35.0-51.0) % MCV (80.0-94.0) fL MCH (27.0-31.0) pg MCHC (33.0-37.0) g/dL RDW (11.5-14.5) % Plt Count (130-400) K/uL MPV (7.2-11.7) fL Neut % (Auto) (50.0-75.0) % Lymph % (Auto) (20.0-40.0) % Stephenson % (Auto) (0.0-10.0) % Eos % (Auto) (0.0-4.0) % Baso % (Auto) (0.0-2.0) % Neut # (1.8-7.0) K/uL Lymph # (1.0-4.3) K/uL Stephenson # (0.0-0.8) K/uL Eos # (0.0-0.7) K/uL Baso # (0.0-0.2) K/uL Sodium (132-148) mmol/L Potassium (3.6-5.2) mmol/L Chloride (98-107) mmol/L Carbon Dioxide (22-30) mmol/L Anion Gap (10-20) BUN (9-20) mg/dL Creatinine (0.8-1.5) mg/dL Est GFR ( Amer) Est GFR (Non-Af Amer) POC Glucose (mg/dL) 111 H 127 H (65-110) mg/dL Random Glucose (75-110) mg/dL Calcium (8.6-10.4) mg/dl Phosphorus (2.5-4.5) mg/dL Magnesium (1.6-2.3) mg/dL Total Bilirubin (0.2-1.3) mg/dL AST (17-59) U/L ALT (21-72) U/L Alkaline Phosphatase (38-126) U/L Total Protein (6.3-8.3) g/dL Albumin (3.5-5.0) g/dL Globulin (2.2-3.9) gm/dL Albumin/Globulin Ratio (1.0-2.1) Vancomycin Trough 9.9 (5.0-10.0) ug/mL 11/21/17 Range/Units 11:48 WBC (4.8-10.8) K/uL RBC (4.40-5.90) Mil/uL Hgb (12.0-18.0) g/dL Hct (35.0-51.0) % MCV (80.0-94.0) fL MCH (27.0-31.0) pg MCHC (33.0-37.0) g/dL RDW (11.5-14.5) % Plt Count (130-400) K/uL MPV (7.2-11.7) fL Neut % (Auto) (50.0-75.0) % Lymph % (Auto) (20.0-40.0) % Stephenson % (Auto) (0.0-10.0) % Eos % (Auto) (0.0-4.0) % Baso % (Auto) (0.0-2.0) % Neut # (1.8-7.0) K/uL Lymph # (1.0-4.3) K/uL Stephenson # (0.0-0.8) K/uL Eos # (0.0-0.7) K/uL Baso # (0.0-0.2) K/uL Sodium (132-148) mmol/L Potassium (3.6-5.2) mmol/L Chloride (98-107) mmol/L Carbon Dioxide (22-30) mmol/L Anion Gap (10-20) BUN (9-20) mg/dL Creatinine (0.8-1.5) mg/dL Est GFR ( Amer) Est GFR (Non-Af Amer) POC Glucose (mg/dL) 107 (65-110) mg/dL Random Glucose (75-110) mg/dL Calcium (8.6-10.4) mg/dl Phosphorus (2.5-4.5) mg/dL Magnesium (1.6-2.3) mg/dL Total Bilirubin (0.2-1.3) mg/dL AST (17-59) U/L ALT (21-72) U/L Alkaline Phosphatase (38-126) U/L Total Protein (6.3-8.3) g/dL Albumin (3.5-5.0) g/dL Globulin (2.2-3.9) gm/dL Albumin/Globulin Ratio (1.0-2.1) Vancomycin Trough (5.0-10.0) ug/mL Laboratory Results - last 24 hr 11/21/17 11/21/17 11/21/17 11:48 16:30 21:51 WBC RBC Hgb Hct MCV MCH MCHC RDW Plt Count MPV Neut % (Auto) Lymph % (Auto) Stephenson % (Auto) Eos % (Auto) Baso % (Auto) Neut # Lymph # Stephenson # Eos # Baso # Sodium Potassium Chloride Carbon Dioxide Anion Gap BUN Creatinine Est GFR ( Amer) Est GFR (Non-Af Amer) POC Glucose (mg/dL) 107 127 H 111 H Random Glucose Calcium Phosphorus Magnesium Total Bilirubin AST ALT Alkaline Phosphatase Total Protein Albumin Globulin Albumin/Globulin Ratio Vancomycin Trough 11/22/17 11/22/17 11/22/17 06:37 06:37 06:37 WBC 4.9 RBC 4.43 Hgb 12.3 Hct 38.5 MCV 86.8 MCH 27.7 MCHC 31.9 L RDW 17.1 H Plt Count 120 L MPV 8.5 Neut % (Auto) 83.5 H Lymph % (Auto) 13.2 L Stephenson % (Auto) 3.2 Eos % (Auto) 0.0 Baso % (Auto) 0.1 Neut # 4.1 Lymph # 0.6 L Stephenson # 0.2 Eos # 0.0 Baso # 0.0 Sodium 126 L Potassium 3.5 L Chloride 84 L Carbon Dioxide 40 H* Anion Gap 6 L BUN 20 Creatinine 0.4 L Est GFR ( Amer) > 60 Est GFR (Non-Af Amer) > 60 POC Glucose (mg/dL) Random Glucose 118 H Calcium 7.8 L Phosphorus 2.9 Magnesium 1.9 Total Bilirubin 1.5 H AST 29 ALT 30 Alkaline Phosphatase 57 Total Protein 5.9 L Albumin 2.6 L Globulin 3.3 Albumin/Globulin Ratio 0.8 L Vancomycin Trough 9.9 11/22/17 07:20 WBC RBC Hgb Hct MCV MCH MCHC RDW Plt Count MPV Neut % (Auto) Lymph % (Auto) Stephenson % (Auto) Eos % (Auto) Baso % (Auto) Neut # Lymph # Stephenson # Eos # Baso # Sodium Potassium Chloride Carbon Dioxide Anion Gap BUN Creatinine Est GFR ( Amer) Est GFR (Non-Af Amer) POC Glucose (mg/dL) 135 H Random Glucose Calcium Phosphorus Magnesium Total Bilirubin AST ALT Alkaline Phosphatase Total Protein Albumin Globulin Albumin/Globulin Ratio Vancomycin Trough Fingerstick Blood Sugar Results: 111 Review of Systems - Review of Systems Systems not reviewed;Unavailable: Other (s/p trach, unable to speak) Critical Care Progress Note - Nutrition Nutrition: Nutrition Category Date Time Status NPO Diet [DIET] Diets 11/17/17 Lunch Active Assessment/Plan - Assessment and Plan (Free Text) 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 Transferring to regular medicine floor. GI consulted regarding PEG tube placement. Neuro: nothing to do. Sedation: none. Pain: none. Psych: ntd. HEENT: Neck CT ordered due to c/o hoarseness and dysphagia. CT showed large heterogeneously enhancing approximately 1.6 x 3.0 x 4.4 cm R glottic mass w/ supraglottic and subglottic extenison, involvement of the inferior aspect of the right thyroid cartilage, destruction of the right cricoid and artenoid cartilages, superior lateral extension beyond the R thyroid cartilage as well as posterior commissure involvement. Radiology recommends PET- CT. Cardio: Troponins were negative. EKG on 11/11 showed sinus bradycardia w/ occasional premature ventricular complexes, low voltage QRS, septal infarct ( age undetermined), and prolonged QT. Echo showed EF of 50%. Pulm: CXR shows potential mild increase in bilateral pleural effusions w/ underlying atelectasis or infiltrates remaining. s/p R thoracentesis on 11/17/[address] showed b/l pleural effusion, right greater than left. Duoneb 3 ml INH RQ6. Methylprednisolone 40 mg IVP Daily. Spiriva 18 mcg INH RQ24. Vent Settings: Bipap FiO2 40.0 // Inspiratory 12 // Expiratory 6 ABG: pCO2 45 // pO2 67 // HCO3 40 // pH 7.59 (11/20/17) Anticipating results from new ABG. Endo: ntd. GI: NPO. GI consulted regarding PEG placement. : Condom catheter in place. Renal: Na 126 // K 3.5 // Cl 84 // HCO3 40 // BUN 20 // Cr 0.4 I/O: +400ml Heme/Onc: ntd H/H: 12.3/38.5 MSK: ntd. ID: [id number] consulted and recommends treatment for pneumonia. Cefepime HCl 1gm in 50 mls @ 100 mls/hr IVPB Q12. Vancomycin HCl 1 gm in NaCl 200 mls @ 166.7 mls /hr IVPB Q24 f/u AM CBC Prophylaxis: DVT: Heparin SC Q8. SCDs GI: Protonix 40 mg IVP Daily <Ja Jose S - Last Filed: 11/22/17 16:42> CCU Objective - Vital Signs / Intake & Output Vital Signs (Last 4 hours): Vital Signs Temp Pulse Resp BP Pulse Ox 11/22/17 16:00 98.4 F 11/22/17 15:11 79 11 L 134/82 11/22/17 15:00 82 11 L 98 11/22/17 14:11 77 12 134/76 96 11/22/17 14:00 77 10 L 99 11/22/17 13:11 80 13 138/78 11/22/17 13:00 82 11 L 100 Intake and Output (Last 8hrs): Intake & Output 11/22/17 11/22/17 11/22/17 06:59 14:59 22:59 Intake Total 750 733 200 Output Total 600 Balance 150 733 200 Weight 149 lb Intake: Intake, IV Amount 750 733 200 Right Forearm 750 733 200 Oral 0 0 0 Output: Urine 600 Condom 600 Other: # Voids Condom 0 0 # Bowel Movements 0 0 0 - Medications Active Medications: Active Medications Generic Name Dose Route Start Last Admin Trade Name Freq PRN Reason Stop Dose Admin Albuterol/Ipratropium 3 ml 11/11/17 20:00 11/22/17 13:51 Duoneb 3 Mg/0.5 Mg (3 Ml) Ud INH 3 ml RQ6 JUANA Administration Heparin Sodium (Porcine) 5,000 units 11/22/17 10:00 11/22/17 09:13 Heparin SC 5,000 units Q12 JUANA Administration Hydralazine HCl 5 mg 11/21/17 08:39 11/21/17 08:57 Apresoline IVP 5 mg Q8H PRN Administration for SBP 180 and above Cefepime HCl 1 gm in 50 mls @ 100 mls/hr 11/14/17 18:00 11/22/17 05:17 Maxipime Iv 1 Gm Premix IVPB 100 mls/hr Q12H JUANA Administration Vancomycin HCl 1 gm/ Sodium 200 mls @ 166.7 mls/hr 11/16/17 12:00 11/22/17 11 :46 Chloride IVPB 166.7 mls/hr Q24H JUANA Administration Dextrose/Sodium Chloride 1,000 mls @ 100 mls/hr 11/21/17 18:30 11/22/17 04:25 Dextrose 5%/0.45% Ns 1000 Ml IV 100 mls/hr .Q10H JUANA Administration Methylprednisolone 40 mg 11/15/17 12:00 11/22/17 12:04 Solu-Medrol IVP 40 mg Q6 JUANA Administration Pantoprazole Sodium 40 mg 11/11/17 17:30 11/22/17 09:22 Protonix Inj IVP 40 mg DAILY JUANA Administration Tiotropium [place] 18 mcg 11/13/17 08:00 11/22/17 13:52 Spiriva INH Not Given RQ24 JUANA - Patient Studies Lab Studies: Lab Studies 11/22/17 11/22/17 11/22/17 Range/Units 16:21 11:28 07:20 WBC (4.8-10.8) K/uL RBC (4.40-5.90) Mil/uL Hgb (12.0-18.0) g/dL Hct (35.0-51.0) % MCV (80.0-94.0) fL MCH (27.0-31.0) pg MCHC (33.0-37.0) g/dL RDW (11.5-14.5) % Plt Count (130-400) K/uL MPV (7.2-11.7) fL Neut % (Auto) (50.0-75.0) % Lymph % (Auto) (20.0-40.0) % Stephenson % (Auto) (0.0-10.0) % Eos % (Auto) (0.0-4.0) % Baso % (Auto) (0.0-2.0) % Neut # (1.8-7.0) K/uL Lymph # (1.0-4.3) K/uL Stephenson # (0.0-0.8) K/uL Eos # (0.0-0.7) K/uL Baso # (0.0-0.2) K/uL Sodium (132-148) mmol/L Potassium (3.6-5.2) mmol/L Chloride (98-107) mmol/L Carbon Dioxide (22-30) mmol/L Anion Gap (10-20) BUN (9-20) mg/dL Creatinine (0.8-1.5) mg/dL Est GFR ( Amer) Est GFR (Non-Af Amer) POC Glucose (mg/dL) 89 122 H 135 H (65-110) mg/dL Random Glucose (75-110) mg/dL Calcium (8.6-10.4) mg/dl Phosphorus (2.5-4.5) mg/dL Magnesium (1.6-2.3) mg/dL Total Bilirubin (0.2-1.3) mg/dL AST (17-59) U/L ALT (21-72) U/L Alkaline Phosphatase (38-126) U/L Total Protein (6.3-8.3) g/dL Albumin (3.5-5.0) g/dL Globulin (2.2-3.9) gm/dL Albumin/Globulin Ratio (1.0-2.1) Vancomycin Trough (5.0-10.0) ug/mL 11/22/17 11/22/17 11/22/17 Range/Units 06:37 06:37 06:37 WBC 4.9 (4.8-10.8) K/uL RBC 4.43 (4.40-5.90) Mil/uL Hgb 12.3 (12.0-18.0) g/dL Hct 38.5 (35.0-51.0) % MCV 86.8 (80.0-94.0) fL MCH 27.7 (27.0-31.0) pg MCHC 31.9 L (33.0-37.0) g/dL RDW 17.1 H (11.5-14.5) % Plt Count 120 L (130-400) K/uL MPV 8.5 (7.2-11.7) fL Neut % (Auto) 83.5 H (50.0-75.0) % Lymph % (Auto) 13.2 L (20.0-40.0) % Stephenson % (Auto) 3.2 (0.0-10.0) % Eos % (Auto) 0.0 (0.0-4.0) % Baso % (Auto) 0.1 (0.0-2.0) % Neut # 4.1 (1.8-7.0) K/uL Lymph # 0.6 L (1.0-4.3) K/uL Stephenson # 0.2 (0.0-0.8) K/uL Eos # 0.0 (0.0-0.7) K/uL Baso # 0.0 (0.0-0.2) K/uL Sodium 126 L (132-148) mmol/L Potassium 3.5 L (3.6-5.2) mmol/L Chloride 84 L (98-107) mmol/L Carbon Dioxide 40 H* (22-30) mmol/L Anion Gap 6 L (10-20) BUN 20 (9-20) mg/dL Creatinine 0.4 L (0.8-1.5) mg/dL Est GFR ( Amer) > 60 Est GFR (Non-Af Amer) > 60 POC Glucose (mg/dL) (65-110) mg/dL Random Glucose 118 H (75-110) mg/dL Calcium 7.8 L (8.6-10.4) mg/dl Phosphorus 2.9 (2.5-4.5) mg/dL Magnesium 1.9 (1.6-2.3) mg/dL Total Bilirubin 1.5 H (0.2-1.3) mg/dL AST 29 (17-59) U/L ALT 30 (21-72) U/L Alkaline Phosphatase 57 (38-126) U/L Total Protein 5.9 L (6.3-8.3) g/dL Albumin 2.6 L (3.5-5.0) g/dL Globulin 3.3 (2.2-3.9) gm/dL Albumin/Globulin Ratio 0.8 L (1.0-2.1) Vancomycin Trough 9.9 (5.0-10.0) ug/mL 11/21/17 Range/Units 21:51 WBC (4.8-10.8) K/uL RBC (4.40-5.90) Mil/uL Hgb (12.0-18.0) g/dL Hct (35.0-51.0) % MCV (80.0-94.0) fL MCH (27.0-31.0) pg MCHC (33.0-37.0) g/dL RDW (11.5-14.5) % Plt Count (130-400) K/uL MPV (7.2-11.7) fL Neut % (Auto) (50.0-75.0) % Lymph % (Auto) (20.0-40.0) % Stephenson % (Auto) (0.0-10.0) % Eos % (Auto) (0.0-4.0) % Baso % (Auto) (0.0-2.0) % Neut # (1.8-7.0) K/uL Lymph # (1.0-4.3) K/uL Stephenson # (0.0-0.8) K/uL Eos # (0.0-0.7) K/uL Baso # (0.0-0.2) K/uL Sodium (132-148) mmol/L Potassium (3.6-5.2) mmol/L Chloride (98-107) mmol/L Carbon Dioxide (22-30) mmol/L Anion Gap (10-20) BUN (9-20) mg/dL Creatinine (0.8-1.5) mg/dL Est GFR ( Amer) Est GFR (Non-Af Amer) POC Glucose (mg/dL) 111 H (65-110) mg/dL Random Glucose (75-110) mg/dL Calcium (8.6-10.4) mg/dl Phosphorus (2.5-4.5) mg/dL Magnesium (1.6-2.3) mg/dL Total Bilirubin (0.2-1.3) mg/dL AST (17-59) U/L ALT (21-72) U/L Alkaline Phosphatase (38-126) U/L Total Protein (6.3-8.3) g/dL Albumin (3.5-5.0) g/dL Globulin (2.2-3.9) gm/dL Albumin/Globulin Ratio (1.0-2.1) Vancomycin Trough (5.0-10.0) ug/mL Laboratory Results - last 24 hr 11/21/17 11/22/17 11/22/17 21:51 06:37 06:37 WBC 4.9 RBC 4.43 Hgb 12.3 Hct 38.5 MCV 86.8 MCH 27.7 MCHC 31.9 L RDW 17.1 H Plt Count 120 L MPV 8.5 Neut % (Auto) 83.5 H Lymph % (Auto) 13.2 L Stephenson % (Auto) 3.2 Eos % (Auto) 0.0 Baso % (Auto) 0.1 Neut # 4.1 Lymph # 0.6 L Stephenson # 0.2 Eos # 0.0 Baso # 0.0 Sodium Potassium Chloride Carbon Dioxide Anion Gap BUN Creatinine Est GFR ( Amer) Est GFR (Non-Af Amer) POC Glucose (mg/dL) 111 H Random Glucose Calcium Phosphorus Magnesium Total Bilirubin AST ALT Alkaline Phosphatase Total Protein Albumin Globulin Albumin/Globulin Ratio Vancomycin Trough 9.9 11/22/17 11/22/17 11/22/17 06:37 07:20 11:28 WBC RBC Hgb Hct MCV MCH MCHC RDW Plt Count MPV Neut % (Auto) Lymph % (Auto) Stephenson % (Auto) Eos % (Auto) Baso % (Auto) Neut # Lymph # Stephenson # Eos # Baso # Sodium 126 L Potassium 3.5 L Chloride 84 L Carbon Dioxide 40 H* Anion Gap 6 L BUN 20 Creatinine 0.4 L Est GFR ( Amer) > 60 Est GFR (Non-Af Amer) > 60 POC Glucose (mg/dL) 135 H 122 H Random Glucose 118 H Calcium 7.8 L Phosphorus 2.9 Magnesium 1.9 Total Bilirubin 1.5 H AST 29 ALT 30 Alkaline Phosphatase 57 Total Protein 5.9 L Albumin 2.6 L Globulin 3.3 Albumin/Globulin Ratio 0.8 L Vancomycin Trough 11/22/17 16:21 WBC RBC Hgb Hct MCV MCH MCHC RDW Plt Count MPV Neut % (Auto) Lymph % (Auto) Stephenson % (Auto) Eos % (Auto) Baso % (Auto) Neut # Lymph # Stephenson # Eos # Baso # Sodium Potassium Chloride Carbon Dioxide Anion Gap BUN Creatinine Est GFR ( Amer) Est GFR (Non-Af Amer) POC Glucose (mg/dL) 89 Random Glucose Calcium Phosphorus Magnesium Total Bilirubin AST ALT Alkaline Phosphatase Total Protein Albumin Globulin Albumin/Globulin Ratio Vancomycin Trough Critical Care Progress Note - Nutrition Nutrition: Nutrition Category Date Time Status NPO Diet [DIET] Diets 11/17/17 Lunch Active Assessment/Plan (1) Acute hypercapnic respiratory failure Current Visit: Yes Status: Acute (2) COPD exacerbation Current Visit: No Status: Acute Attending/Attestation - Attestation I have personally seen and examined this patient.: Yes I have fully participated in the care of the patient.: Yes I have reviewed all pertinent clinical information: Yes Notes (Text): 11/22/17 16:41 Patient seen and examined in the intensive care unit. Stable to be transferred to floor Continue present treatment Consider PEG placement
[2017-11-22] MEDS: Vancomycin 1 GM in Sodium Chloride 0.9% 200 ML IVPB SCH (11:46)
--- NOTE | 2017-11-22 12:27 | CP.PCM.PN ---
Subjective - Date & Time of Evaluation Date of Evaluation: 11/22/17 Time of Evaluation: 12:23 - Subjective Subjective: Mr. Carmona was seen and examined at the bedside in ICU. He is alert, oriented in all spheres. He has trach. He is able to respond using non verbal communication skills. he states of feeling sore in his trach area., but he claims of the pains being tolerable. He denies any dizziness, lightheadedness, lightheadedness, blurred vision. He is able to follow simple commands such as raising his bilateral lower and upper extremities. He is able to do also field accommodation. He has bilateral lower extremities SCD's. There was no untoward events overnight. Objective - Vital Signs/Intake and Output Vital Signs (last 24 hours): Temp Pulse Resp BP Pulse Ox 97.7 F 86 11 L 136/75 98 11/22/17 08:00 11/22/17 11:11 11/22/17 11:11 11/22/17 11:11 11/22/17 11:11 Intake and Output: 11/22/17 11/22/17 06:59 18:59 Intake Total 1050 533 Output Total 900 Balance 150 533 - Medications Medications: Current Medications Albuterol/Ipratropium (Duoneb 3 Mg/0.5 Mg (3 Ml) Ud) 3 ml INH RQ6 [facility] Last Admin: 11/22/17 07:25 Dose: 3 ml Heparin Sodium (Porcine) (Heparin) 5,000 units SC Q12 JUANA Last Admin: 11/22/17 09:13 Dose: 5,000 units Hydralazine HCl (Apresoline) 5 mg IVP Q8H PRN PRN Reason: for SBP 180 and above Last Admin: 11/21/17 08:57 Dose: 5 mg Cefepime HCl (Maxipime Iv 1 Gm Premix) 1 gm in 50 mls @ 100 mls/hr IVPB Q12H [facility] Last Admin: 11/22/17 05:17 Dose: 100 mls/hr Vancomycin HCl 1 gm/ Sodium (Chloride) 200 mls @ 166.7 mls/hr IVPB Q24H [facility] Last Admin: 11/22/17 11:46 Dose: 166.7 mls/hr Dextrose/Sodium Chloride (Dextrose 5%/0.45% Ns 1000 Ml) 1,000 mls @ 100 mls/hr IV .Q10H [facility] Last Admin: 11/22/17 04:25 Dose: 100 mls/hr Methylprednisolone (Solu-Medrol) 40 mg IVP Q6 [facility] Last Admin: 11/22/17 12:04 Dose: 40 mg Pantoprazole Sodium (Protonix Inj) 40 mg IVP DAILY [facility] Last Admin: 11/22/17 09:22 Dose: 40 mg Tiotropium [place] (Spiriva) 18 mcg INH RQ24 [facility] Last Admin: 11/21/17 21:51 Dose: Not Given - Labs Labs: 11/22/17 06:37 11/22/17 06:37 PT 15.4 SECONDS (9.7-12.2) H 11/20/17 09:42 INR 1.3 11/20/17 09:42 APTT 58 SECONDS (21-34) H 11/17/17 11:21 - Constitutional Appears: No Acute Distress - Head Exam Head Exam: NORMAL INSPECTION - Neurological Exam Neurological Exam: Alert, Awake Neuro motor strength exam: Left Upper Extremity: 5, Right Upper Extremity: 5, Left Lower Extremity: 3, Right Lower Extremity: 3 Additional comments: He is able answer questions responding using nodding or shaking his head. He is able to follow simple commands. Sensation remains intact. Assessment and Plan (1) Toxic metabolic encephalopathy Assessment & Plan: Case discussed with Dr. Chavez, continue all current medical regimen. There is no new recommendations from neurology. Status: Acute
[2017-11-22] MEDS: Tiotropium 18 mcg Cap For Inhalation INH SCH (13:52)
--- NOTE | 2017-11-22 16:09 | CP.PCM.PN ---
Subjective - Date & Time of Evaluation Date of Evaluation: 11/22/17 Time of Evaluation: 07:00 - Subjective Subjective: s/p trach but he is alert and shake his head yes/no to questions. Objective - Vital Signs/Intake and Output Vital Signs (last 24 hours): Temp Pulse Resp BP Pulse Ox 98.4 F 79 11 L 134/82 98 11/22/17 12:00 11/22/17 15:11 11/22/17 15:11 11/22/17 15:11 11/22/17 15:00 Intake and Output: 11/22/17 11/22/17 06:59 18:59 Intake Total 1050 833 Output Total 900 Balance 150 833 - Medications Medications: Current Medications Albuterol/Ipratropium (Duoneb 3 Mg/0.5 Mg (3 Ml) Ud) 3 ml INH RQ6 [facility] Last Admin: 11/22/17 13:51 Dose: 3 ml Heparin Sodium (Porcine) (Heparin) 5,000 units SC Q12 [facility] Last Admin: 11/22/17 09:13 Dose: 5,000 units Hydralazine HCl (Apresoline) 5 mg IVP Q8H PRN PRN Reason: for SBP 180 and above Last Admin: 11/21/17 08:57 Dose: 5 mg Cefepime HCl (Maxipime Iv 1 Gm Premix) 1 gm in 50 mls @ 100 mls/hr IVPB Q12H [facility] Last Admin: 11/22/17 05:17 Dose: 100 mls/hr Vancomycin HCl 1 gm/ Sodium (Chloride) 200 mls @ 166.7 mls/hr IVPB Q24H [facility] Last Admin: 11/22/17 11:46 Dose: 166.7 mls/hr Dextrose/Sodium Chloride (Dextrose 5%/0.45% Ns 1000 Ml) 1,000 mls @ 100 mls/hr IV .Q10H [facility] Last Admin: 11/22/17 04:25 Dose: 100 mls/hr Methylprednisolone (Solu-Medrol) 40 mg IVP Q6 [facility] Last Admin: 11/22/17 12:04 Dose: 40 mg Pantoprazole Sodium (Protonix Inj) 40 mg IVP DAILY [facility] Last Admin: 11/22/17 09:22 Dose: 40 mg Tiotropium [place] (Spiriva) 18 mcg INH RQ24 [facility] Last Admin: 11/22/17 13:52 Dose: Not Given - Labs Labs: 11/22/17 06:37 11/22/17 06:37 PT 15.4 SECONDS (9.7-12.2) H 11/20/17 09:42 INR 1.3 11/20/17 09:42 APTT 58 SECONDS (21-34) H 11/17/17 11:21 - Constitutional Appears: Non-toxic, Cachectic - Head Exam Head Exam: NORMOCEPHALIC - Eye Exam Eye Exam: absent: Scleral icterus - ENT Exam ENT Exam: Mucous Membranes Dry - Neck Exam Neck Exam: absent: Lymphadenopathy - Respiratory Exam Respiratory Exam: Decreased Breath Sounds - Cardiovascular Exam Cardiovascular Exam: REGULAR RHYTHM - GI/Abdominal Exam GI & Abdominal Exam: Distended - Rectal Exam Rectal Exam: Deferred - Exam Exam: NORMAL INSPECTION Assessment and Plan (1) Acute hypercapnic respiratory failure Status: Acute (2) Hypothermia Status: Acute (3) Syncope and collapse Status: Acute (4) Toxic metabolic encephalopathy Status: Acute (5) CHF (congestive heart failure) Status: Acute (6) COPD exacerbation Status: Acute (7) Chr obstructive pulmonary disease w/ acute lower respiratory infxn Status: Acute
--- NOTE | 2017-11-22 16:14 | CON ---
DATE: 11/22/2017 LOCATION: ICU. HISTORY OF PRESENT ILLNESS: This is a 72-year-old male, seen for GI consultation on 11/22/2017 in the presence of the staff in the Intensive Care Unit as requested by the admitting MD, who was admitted initially to the hospital through the emergency room after he was found unconscious in the floor for almost 2 days. Through the last 10 days, the patient had been in the hospital after intensive treatment, with a complaint of dysphagia mainly for which the patient had modified barium swallow, which showed aspiration observed for which PEG insertion was requested. Most recent chest x-ray done today, however, showed evidence of bilateral pleural effusion with possible atelectasis or infiltrate. Tracheostomy is seen. Most recent lab result done today showed normal white blood cells. Normal hemoglobin and hematocrit with low platelet count of 120 with low sodium 126, low potassium 3.5 with CO2 content of 40 with blood glucose level 135, low calcium 7.8 and high total bilirubin slightly to 1.5 with low albumin 2.6 and low total protein 5.9. PAST MEDICAL HISTORY: Initial reports indicate past medical history of, 1. Hypertension. 2. COPD. 3. Congestive heart failure. FAMILY HISTORY: Unknown. SOCIAL HISTORY: No reported recent history of alcohol intake or cigarette smoking. CURRENT MEDICATION: The entire medication lists were reviewed. ALLERGY: ALLERGY TO MEDICATION UNKNOWN. PHYSICAL EXAMINATION: GENERAL: A 72-year-old male. VITAL SIGNS: Afebrile with pulse of 80, blood pressure 130/76. HEENT: Showed pale dry oral mucous membrane. Mildly icteric sclerae. LYMPH NODES: No lymphadenitis or lymphadenopathy. LUNGS: Few scattered crepitation with bilateral decreased air entry at bases. HEART: Positive S1 and S2. ABDOMEN: Soft with mild distention. No mass or organomegaly. No rebound tenderness or guarding. EXTREMITIES: Without significant clubbing, cyanosis or edematous changes. NEUROLOGIC: No new reported neurological deficits, sensory or motor. IMPRESSION: 1. Malnutrition, hypoalbuminemia and dysphagia. 2. The patient is a candidate for percutaneous endoscopic gastrostomy insertion after failing swallow evaluation and modified barium swallow. 3. Respiratory failure with bilateral pneumonia, on bilevel positive airway pressure. 4. Electrolyte imbalance. 5. Thrombocytopenia of unclear etiology. 6. Known history of hypertension. SUGGESTION: 1. Agree with your plan. 2. The patient is a candidate for PEG insertion. 3. Albumin IV. 4. Proper hyperalimentation. 5. It has to be mentioned that after the patient was seen for my GI consultation, it was noticed that the patient had another consultation by Dr. Horner prior to my consultation. I will contact Dr. Horner for such second opinion. Further recommendation to follow. Cyn Espino MD
[2017-11-23] MEDS: Dextrose 5%/0.45% NS 1,000 ML IV SCH ×5 (01:00→20:30)
[2017-11-23] MEDS: Albuterol-Ipratrop 3 mg / 0.5 (3 ml) UD INH SCH ×4 (01:18→19:28)
[2017-11-23] MEDS: MethylPREDNISolone 40 mg Vial IVP SCH ×4 (05:11→18:54)
[2017-11-23] MEDS: Cefepime IV 1 gm in Dextrose 1 GM/50 ML BAG IVPB SCH ×2 (05:12→18:58)
[2017-11-23 06:44] LABS: BASO % 0.1 % (0.0-2.0); HEMOGLOBIN 12.6 g/dL (12.0-18.0); LYMPH # 0.3 K/uL (1.0-4.3); LYMPH % 6.3 % (20.0-40.0); MEAN CELL VOLUME 86.7 fL (80.0-94.0); MEAN CORPUSCULAR HEMOGLOBIN 27.5 pg (27.0-31.0); MEAN CORPUSCULAR HGB CONC 31.7 g/dL (33.0-37.0); MEAN PLATELET VOLUME 8.4 fL (7.2-11.7); MONO # 0.2 K/uL (0.0-0.8); MONO % 4.5 % (0.0-10.0); NEUT # 4.9 K/uL (1.8-7.0); NEUT % 89.1 % (50.0-75.0); NRBC % 0.1 % (0.0-2.0); PLATELET COUNT 134 K/uL (130-400); RBC 4.57 Mil/uL (4.40-5.90); RED CELL DISTRIBUTION WIDTH 16.8 % (11.5-14.5); WHITE BLOOD COUNT 5.5 K/uL (4.8-10.8)
[2017-11-23 06:50] LABS: INR 1.2; PROTHROMBIN TIME 13.5 SECONDS (9.7-12.2)
[2017-11-23 07:57] LABS: ALBUMIN 2.7 g/dL (3.5-5.0); GFR AFRICAN-AMERICAN > 60; GFR NON-AFRICAN AMERICAN > 60
[2017-11-23 07:58] LABS: ALB/GLOB RATIO 0.8 (1.0-2.1); AST/SGOT 27 U/L (17-59); BLOOD UREA NITROGEN 21 mg/dL (9-20)
[2017-11-23 07:59] LABS: ALT/SGPT 35 U/L (21-72)
[2017-11-23 08:18] LABS: ANISOCYTOSIS SLIGHT; HYPOCHROMIC SLIGHT; LYMPHOCYTE 2 % (20-40); MONOCYTE 2 % (0-10); NEUTROPHIL 96 % (50-75); PLATELET ESTIMATE NORMAL (NORMAL); POLYCHROMIC SLIGHT; TARGET CELLS SLIGHT; TOTAL CELLS COUNTED 100
[2017-11-23 08:19] LABS: OVALOCYTES SLIGHT
[2017-11-23] MEDS: Vancomycin 1 GM in Sodium Chloride 0.9% 200 ML IVPB SCH (11:03)
--- NOTE | 2017-11-23 14:03 | CP.PCM.PN ---
Subjective - Date & Time of Evaluation Date of Evaluation: 11/23/17 Time of Evaluation: 14:00 - Subjective Subjective: Mr. Carmona was seen and examined at the bedside in ICU. He is alert, oriented in all spheres. He is able to communicated using non-verbal cues and able to form words in his mouth with no sounds noted. He is able to follow simple commands. He denies any headache, dizziness, lightheadedness, blurred vision. He is asking regarding PO intake, explained to the patient that due to his condition in his throat swallowing will be hard for him and might cause more complications. At present, he is receiving IVF. There was no untoward events overnight. Objective - Vital Signs/Intake and Output Vital Signs (last 24 hours): Temp Pulse Resp BP Pulse Ox 97.1 F L 73 11 L 189/100 H 96 11/23/17 12:00 11/23/17 11:31 11/23/17 11:31 11/23/17 13:37 11/23/17 12:00 Intake and Output: 11/23/17 11/23/17 06:59 18:59 Intake Total 1200 100 Output Total 900 500 Balance 300 -400 - Medications Medications: Current Medications Albuterol/Ipratropium (Duoneb 3 Mg/0.5 Mg (3 Ml) Ud) 3 ml INH RQ6 [facility] Last Admin: 11/23/17 07:23 Dose: 3 ml Heparin Sodium (Porcine) (Heparin) 5,000 units SC Q12 [facility] Last Admin: 11/23/17 11:03 Dose: 5,000 units Hydralazine HCl (Apresoline) 5 mg IVP Q8H PRN PRN Reason: for SBP 180 and above Last Admin: 11/23/17 13:29 Dose: 5 mg Cefepime HCl (Maxipime Iv 1 Gm Premix) 1 gm in 50 mls @ 100 mls/hr IVPB Q12H [facility] Last Admin: 11/23/17 05:12 Dose: 100 mls/hr Vancomycin HCl 1 gm/ Sodium (Chloride) 200 mls @ 166.7 mls/hr IVPB Q24H [facility] Last Admin: 11/23/17 11:03 Dose: 166.7 mls/hr Dextrose/Sodium Chloride (Dextrose 5%/0.45% Ns 1000 Ml) 1,000 mls @ 100 mls/hr IV .Q10H [facility] Last Admin: 11/23/17 12:21 Dose: Not Given Potassium Chloride (Potassium Chloride 10 Meq/100 Ml) 10 meq in 100 mls @ 100 mls/hr IVPB ONCE ONE Stop: 11/23/17 14:44 Methylprednisolone (Solu-Medrol) 40 mg IVP Q6 [facility] Last Admin: 11/23/17 11:03 Dose: 40 mg Pantoprazole Sodium (Protonix Inj) 40 mg IVP DAILY [facility] Last Admin: 11/23/17 11:02 Dose: 40 mg Tiotropium [place] (Spiriva) 18 mcg INH RQ24 [facility] Last Admin: 11/22/17 13:52 Dose: Not Given - Labs Labs: 11/23/17 06:36 11/23/17 06:36 PT 13.5 SECONDS (9.7-12.2) H 11/23/17 04:00 INR 1.2 11/23/17 04:00 APTT 33 SECONDS (21-34) 11/23/17 04:00 - Constitutional Appears: No Acute Distress - Neck Exam Additional comments: new trach with serosanguenous secretions noted - Neurological Exam Neurological Exam: Alert, Awake, Oriented x3 Neuro motor strength exam: Left Upper Extremity: 5, Right Upper Extremity: 5, Left Lower Extremity: 4, Right Lower Extremity: 4 Additional comments: Neurological unchanged from previous examination. Assessment and Plan (1) Toxic metabolic encephalopathy Assessment & Plan: Case discussed with Dr. Chavez, continue all current medical therapy. There is no new recommendations from neurology. Status: Acute
--- NOTE | 2017-11-23 19:16 | CP.PCM.PN ---
Subjective - Date & Time of Evaluation Date of Evaluation: 11/23/17 Time of Evaluation: 08:00 - Subjective Subjective: afeb/ alert bloody secretions from trach on IV antibiotics Objective - Vital Signs/Intake and Output Vital Signs (last 24 hours): Temp Pulse Resp BP Pulse Ox 97.4 F L 81 20 161/84 H 95 11/23/17 16:00 11/23/17 16:00 11/23/17 16:00 11/23/17 16:00 11/23/17 16:00 Intake and Output: 11/23/17 11/24/17 18:59 06:59 Intake Total 725 Output Total 1150 Balance -425 - Medications Medications: Current Medications Albuterol/Ipratropium (Duoneb 3 Mg/0.5 Mg (3 Ml) Ud) 3 ml INH RQ6 [facility] Last Admin: 11/23/17 07:23 Dose: 3 ml Heparin Sodium (Porcine) (Heparin) 5,000 units SC Q12 [facility] Last Admin: 11/23/17 11:03 Dose: 5,000 units Hydralazine HCl (Apresoline) 5 mg IVP Q8H PRN PRN Reason: for SBP 180 and above Last Admin: 11/23/17 13:29 Dose: 5 mg Cefepime HCl (Maxipime Iv 1 Gm Premix) 1 gm in 50 mls @ 100 mls/hr IVPB Q12H [facility] Last Admin: 11/23/17 18:58 Dose: 100 mls/hr Vancomycin HCl 1 gm/ Sodium (Chloride) 200 mls @ 166.7 mls/hr IVPB Q24H [facility] Last Admin: 11/23/17 11:03 Dose: 166.7 mls/hr Dextrose/Sodium Chloride (Dextrose 5%/0.45% Ns 1000 Ml) 1,000 mls @ 100 mls/hr IV .Q10H [facility] Last Admin: 11/23/17 19:00 Dose: 100 mls/hr Methylprednisolone (Solu-Medrol) 40 mg IVP Q6 [facility] Last Admin: 11/23/17 18:54 Dose: 40 mg Pantoprazole Sodium (Protonix Inj) 40 mg IVP DAILY [facility] Last Admin: 11/23/17 11:02 Dose: 40 mg Tiotropium [place] (Spiriva) 18 mcg INH RQ24 [facility] Last Admin: 11/22/17 13:52 Dose: Not Given - Labs Labs: 11/23/17 06:36 11/23/17 06:36 PT 13.5 SECONDS (9.7-12.2) H 11/23/17 04:00 INR 1.2 11/23/17 04:00 APTT 33 SECONDS (21-34) 11/23/17 04:00 - Constitutional Appears: Non-toxic, Cachectic, Chronically Ill - Head Exam Head Exam: NORMOCEPHALIC - Eye Exam Eye Exam: PERRL - ENT Exam ENT Exam: Mucous Membranes Dry - Neck Exam Neck Exam: absent: Lymphadenopathy - Respiratory Exam Respiratory Exam: Decreased Breath Sounds - Cardiovascular Exam Cardiovascular Exam: REGULAR RHYTHM - GI/Abdominal Exam GI & Abdominal Exam: Distended, Soft Assessment and Plan (1) Acute hypercapnic respiratory failure Status: Acute (2) Hypothermia Status: Acute (3) Syncope and collapse Status: Acute (4) Toxic metabolic encephalopathy Status: Acute (5) CHF (congestive heart failure) Status: Acute (6) COPD exacerbation Status: Acute (7) Chr obstructive pulmonary disease w/ acute lower respiratory infxn Status: Acute
--- NOTE | 2017-11-23 20:39 | CP.PCM.PN ---
Subjective - Date & Time of Evaluation Date of Evaluation: 11/23/17 Time of Evaluation: 20:39 Objective - Vital Signs/Intake and Output Vital Signs (last 24 hours): Temp Pulse Resp BP Pulse Ox 97.4 F L 81 20 161/84 H 95 11/23/17 16:00 11/23/17 16:00 11/23/17 16:00 11/23/17 16:00 11/23/17 16:00 Intake and Output: 11/23/17 11/24/17 18:59 06:59 Intake Total 725 Output Total 1150 Balance -425 - Medications Medications: Current Medications Albuterol/Ipratropium (Duoneb 3 Mg/0.5 Mg (3 Ml) Ud) 3 ml INH RQ6 [facility] Last Admin: 11/23/17 19:28 Dose: 3 ml Heparin Sodium (Porcine) (Heparin) 5,000 units SC Q12 [facility] Last Admin: 11/23/17 11:03 Dose: 5,000 units Hydralazine HCl (Apresoline) 5 mg IVP Q8H PRN PRN Reason: for SBP 180 and above Last Admin: 11/23/17 13:29 Dose: 5 mg Cefepime HCl (Maxipime Iv 1 Gm Premix) 1 gm in 50 mls @ 100 mls/hr IVPB Q12H [facility] Last Admin: 11/23/17 18:58 Dose: 100 mls/hr Dextrose/Sodium Chloride (Dextrose 5%/0.45% Ns 1000 Ml) 1,000 mls @ 100 mls/hr IV .Q10H [facility] Last Admin: 11/23/17 19:00 Dose: 100 mls/hr Methylprednisolone (Solu-Medrol) 40 mg IVP Q6 [facility] Last Admin: 11/23/17 18:54 Dose: 40 mg Pantoprazole Sodium (Protonix Inj) 40 mg IVP DAILY [facility] Last Admin: 11/23/17 11:02 Dose: 40 mg Tiotropium [place] (Spiriva) 18 mcg INH RQ24 [facility] Last Admin: 11/22/17 13:52 Dose: Not Given - Labs Labs: 11/23/17 06:36 11/23/17 06:36 PT 13.5 SECONDS (9.7-12.2) H 11/23/17 04:00 INR 1.2 11/23/17 04:00 APTT 33 SECONDS (21-34) 11/23/17 04:00
[2017-11-24] MEDS: MethylPREDNISolone 40 mg Vial IVP SCH ×5 (00:14→18:00)
[2017-11-24] MEDS: Albuterol-Ipratrop 3 mg / 0.5 (3 ml) UD INH SCH ×4 (02:35→20:45)
[2017-11-24] MEDS: Cefepime IV 1 gm in Dextrose 1 GM/50 ML BAG IVPB SCH ×2 (06:02→17:36)
[2017-11-24] MEDS: Dextrose 5%/0.45% NS 1,000 ML IV SCH ×2 (06:49→22:02)
[2017-11-24 07:23] LABS: INR 1.3; PROTHROMBIN TIME 14.1 SECONDS (9.7-12.2)
[2017-11-24] MEDS: Tiotropium 18 mcg Cap For Inhalation INH SCH (07:25)
[2017-11-24 07:32] LABS: HEMOGLOBIN 11.6 g/dL (12.0-18.0); MEAN CELL VOLUME 86.7 fL (80.0-94.0); MEAN CORPUSCULAR HEMOGLOBIN 27.8 pg (27.0-31.0); MEAN CORPUSCULAR HGB CONC 32.1 g/dL (33.0-37.0); MEAN PLATELET VOLUME 8.4 fL (7.2-11.7); RBC 4.17 Mil/uL (4.40-5.90); RED CELL DISTRIBUTION WIDTH 16.9 % (11.5-14.5); WHITE BLOOD COUNT 4.3 K/uL (4.8-10.8)
[2017-11-24 08:33] LABS: ALB/GLOB RATIO 0.8 (1.0-2.1); ALBUMIN 2.3 g/dL (3.5-5.0); ALT/SGPT 30 U/L (21-72); AST/SGOT 21 U/L (17-59); BLOOD UREA NITROGEN 18 mg/dL (9-20); CALCIUM 7.8 mg/dl (8.6-10.4); GFR AFRICAN-AMERICAN > 60; GFR NON-AFRICAN AMERICAN > 60
[2017-11-24] MEDS ORDERED: Propofol 10 mg/ml Inj (20 ML) ONE (10:16)
[2017-11-24] MEDS ORDERED: ePHEDrine 50 mg/ml Inj ONE (10:40)
[2017-11-24] MEDS ORDERED: Phenylephrine 10 mg/ml Inj ONE (10:51)
--- NOTE | 2017-11-24 11:49 | CP.PCM.PN ---
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 Objective - Vital Signs/Intake and Output Vital Signs (last 24 hours): Temp Pulse Resp BP Pulse Ox 98.9 F 80 10 L 111/69 100 11/24/17 11:17 11/24/17 11:17 11/24/17 11:17 11/24/17 11:17 11/24/17 11:17 Intake and Output: 11/24/17 11/24/17 06:59 18:59 Intake Total 1600 250 Output Total 850 Balance 750 250 - Medications Medications: Current Medications Albuterol/Ipratropium (Duoneb 3 Mg/0.5 Mg (3 Ml) Ud) 3 ml INH RQ6 [facility] Last Admin: 11/24/17 07:24 Dose: 3 ml Heparin Sodium (Porcine) (Heparin) 5,000 units SC Q12 [facility] Last Admin: 11/23/17 11:03 Dose: 5,000 units Hydralazine HCl (Apresoline) 5 mg IVP Q8H PRN PRN Reason: for SBP 180 and above Last Admin: 11/23/17 13:29 Dose: 5 mg Cefepime HCl (Maxipime Iv 1 Gm Premix) 1 gm in 50 mls @ 100 mls/hr IVPB Q12H [facility] Last Admin: 11/24/17 06:02 Dose: 100 mls/hr Dextrose/Sodium Chloride (Dextrose 5%/0.45% Ns 1000 Ml) 1,000 mls @ 100 mls/hr IV .Q10H [facility] Last Admin: 11/24/17 06:49 Dose: 100 mls/hr Sodium Chloride (Sodium Chloride 0.9%) 1,000 mls @ 10 mls/hr IV .Q24H [facility] Methylprednisolone (Solu-Medrol) 40 mg IVP Q6 [facility] Last Admin: 11/24/17 06:10 Dose: 40 mg Pantoprazole Sodium (Protonix Inj) 40 mg IVP DAILY [facility] Last Admin: 11/24/17 10:20 Dose: Not Given Tiotropium [place] (Spiriva) 18 mcg INH RQ24 [facility] Last Admin: 11/24/17 07:25 Dose: Not Given - Labs Labs: 11/24/17 06:55 11/24/17 06:55 PT 14.1 SECONDS (9.7-12.2) H 11/24/17 06:55 INR 1.3 11/24/17 06:55 APTT 33 SECONDS (21-34) 11/23/17 04:00
[2017-11-24] MEDS: Sodium Chloride 0.9% 1,000 ML IV SCH (12:22)
--- NOTE | 2017-11-24 12:59 | CP.PCM.PN ---
Objective - Vital Signs/Intake and Output Vital Signs (last 24 hours): Temp Pulse Resp BP Pulse Ox 98.9 F 76 14 120/73 100 11/24/17 11:32 11/24/17 11:32 11/24/17 11:32 11/24/17 11:32 11/24/17 11:32 Intake and Output: 11/24/17 11/24/17 06:59 18:59 Intake Total 1600 400 Output Total 850 Balance 750 400 - Medications Medications: Current Medications Albuterol/Ipratropium (Duoneb 3 Mg/0.5 Mg (3 Ml) Ud) 3 ml INH RQ6 [facility] Last Admin: 11/24/17 07:24 Dose: 3 ml Heparin Sodium (Porcine) (Heparin) 5,000 units SC Q12 [facility] Last Admin: 11/23/17 11:03 Dose: 5,000 units Hydralazine HCl (Apresoline) 5 mg IVP Q8H PRN PRN Reason: for SBP 180 and above Last Admin: 11/23/17 13:29 Dose: 5 mg Cefepime HCl (Maxipime Iv 1 Gm Premix) 1 gm in 50 mls @ 100 mls/hr IVPB Q12H [facility] Last Admin: 11/24/17 06:02 Dose: 100 mls/hr Dextrose/Sodium Chloride (Dextrose 5%/0.45% Ns 1000 Ml) 1,000 mls @ 100 mls/hr IV .Q10H [facility] Last Admin: 11/24/17 06:49 Dose: 100 mls/hr Sodium Chloride (Sodium Chloride 0.9%) 1,000 mls @ 10 mls/hr IV .Q24H [facility] Last Admin: 11/24/17 12:22 Dose: Not Given Methylprednisolone (Solu-Medrol) 40 mg IVP Q6 [facility] Last Admin: 11/24/17 12:22 Dose: 40 mg Pantoprazole Sodium (Protonix Inj) 40 mg IVP DAILY [facility] Last Admin: 11/24/17 10:20 Dose: Not Given Tiotropium [place] (Spiriva) 18 mcg INH RQ24 [facility] Last Admin: 11/24/17 07:25 Dose: Not Given - Labs Labs: 11/24/17 06:55 11/24/17 06:55 PT 14.1 SECONDS (9.7-12.2) H 11/24/17 06:55 INR 1.3 11/24/17 06:55 APTT 33 SECONDS (21-34) 11/23/17 04:00 Assessment and Plan (1) Acute hypercapnic respiratory failure Status: Acute (2) COPD exacerbation Status: Acute
--- NOTE | 2017-11-24 16:05 | CP.PCM.PN ---
Subjective - Date & Time of Evaluation Date of Evaluation: 11/24/17 Time of Evaluation: 16:05 Objective - Vital Signs/Intake and Output Vital Signs (last 24 hours): Temp Pulse Resp BP Pulse Ox 98.9 F 76 14 120/73 100 11/24/17 11:32 11/24/17 11:32 11/24/17 11:32 11/24/17 11:32 11/24/17 11:32 Intake and Output: 11/24/17 11/24/17 06:59 18:59 Intake Total 1600 1000 Output Total 850 400 Balance 750 600 - Medications Medications: Current Medications Albuterol/Ipratropium (Duoneb 3 Mg/0.5 Mg (3 Ml) Ud) 3 ml INH RQ6 [facility] Last Admin: 11/24/17 13:11 Dose: Not Given Heparin Sodium (Porcine) (Heparin) 5,000 units SC Q12 [facility] Last Admin: 11/23/17 11:03 Dose: 5,000 units Hydralazine HCl (Apresoline) 5 mg IVP Q8H PRN PRN Reason: for SBP 180 and above Last Admin: 11/23/17 13:29 Dose: 5 mg Cefepime HCl (Maxipime Iv 1 Gm Premix) 1 gm in 50 mls @ 100 mls/hr IVPB Q12H [facility] Last Admin: 11/24/17 06:02 Dose: 100 mls/hr Dextrose/Sodium Chloride (Dextrose 5%/0.45% Ns 1000 Ml) 1,000 mls @ 100 mls/hr IV .Q10H [facility] Last Admin: 11/24/17 06:49 Dose: 100 mls/hr Sodium Chloride (Sodium Chloride 0.9%) 1,000 mls @ 10 mls/hr IV .Q24H [facility] Last Admin: 11/24/17 12:22 Dose: Not Given Methylprednisolone (Solu-Medrol) 40 mg IVP Q6 [facility] Last Admin: 11/24/17 12:22 Dose: 40 mg Pantoprazole Sodium (Protonix Inj) 40 mg IVP DAILY [facility] Last Admin: 11/24/17 10:20 Dose: Not Given Tiotropium [place] (Spiriva) 18 mcg INH RQ24 [facility] Last Admin: 11/24/17 07:25 Dose: Not Given - Labs Labs: 11/24/17 06:55 11/24/17 06:55 PT 14.1 SECONDS (9.7-12.2) H 11/24/17 06:55 INR 1.3 11/24/17 06:55 APTT 33 SECONDS (21-34) 11/23/17 04:00
[2017-11-25] MEDS: MethylPREDNISolone 40 mg Vial IVP SCH ×4 (00:25→17:25)
[2017-11-25] MEDS: Albuterol-Ipratrop 3 mg / 0.5 (3 ml) UD INH SCH ×4 (01:46→19:14)
[2017-11-25] MEDS: Cefepime IV 1 gm in Dextrose 1 GM/50 ML BAG IVPB SCH ×2 (05:08→17:30)
[2017-11-25] MEDS: Dextrose 5%/0.45% NS 1,000 ML IV SCH ×4 (05:09→19:45)
[2017-11-25 08:20] VITALS: RESP 20
[2017-11-25] MEDS: Sodium Chloride 0.9% 1,000 ML IV SCH (11:45)
[2017-11-25] MEDS: Tiotropium 18 mcg Cap For Inhalation INH SCH (13:21)
--- NOTE | 2017-11-25 17:21 | CP.PCM.PN ---
Subjective - Date & Time of Evaluation Date of Evaluation: 11/25/17 Time of Evaluation: 17:21 Objective - Vital Signs/Intake and Output Vital Signs (last 24 hours): Temp Pulse Resp BP Pulse Ox 97.3 F L 75 20 170/89 H 96 11/25/17 15:00 11/25/17 15:00 11/25/17 15:00 11/25/17 15:00 11/25/17 15:00 Intake and Output: 11/25/17 11/25/17 06:59 18:59 Intake Total 800 Output Total 900 Balance -100 - Medications Medications: Current Medications Albuterol/Ipratropium (Duoneb 3 Mg/0.5 Mg (3 Ml) Ud) 3 ml INH RQ6 [facility] Last Admin: 11/25/17 13:21 Dose: 3 ml Heparin Sodium (Porcine) (Heparin) 5,000 units SC Q12 [facility] Last Admin: 11/25/17 10:56 Dose: 5,000 units Hydralazine [place] (Apresoline) 5 mg IVP Q8H PRN PRN Reason: for SBP 180 and above Last Admin: 11/23/17 13:29 Dose: 5 mg Cefepime HCl (Maxipime Iv 1 Gm Premix) 1 gm in 50 mls @ 100 mls/hr IVPB Q12H [facility] Last Admin: 11/25/17 05:08 Dose: 100 mls/hr Sodium Chloride (Sodium Chloride 0.9%) 1,000 mls @ 10 mls/hr IV .Q24H [facility] Last Admin: 11/25/17 11:45 Dose: Not Given Dextrose/Sodium Chloride (Dextrose 5%/0.45% Ns 1000 Ml) 1,000 mls @ 100 mls/hr IV .Q10H [facility] Last Admin: 11/25/17 10:55 Dose: Not Given Methylprednisolone (Solu-Medrol) 40 mg IVP Q6 [facility] Last Admin: 11/25/17 12:22 Dose: 40 mg Pantoprazole Sodium (Protonix Inj) 40 mg IVP DAILY [facility] Last Admin: 11/25/17 10:56 Dose: 40 mg Tiotropium [place] (Spiriva) 18 mcg INH RQ24 [facility] Last Admin: 11/25/17 13:21 Dose: Not Given - Labs Labs: 11/24/17 06:55 11/24/17 06:55 PT 14.1 SECONDS (9.7-12.2) H 11/24/17 06:55 INR 1.3 11/24/17 06:55 APTT 33 SECONDS (21-34) 11/23/17 04:00
--- NOTE | 2017-11-25 20:38 | CP.PCM.CON ---
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 The patient reports to progressive difficulty breathing and swallowing for about 1 year. He also has had a reduced appetite and weightloss. Past medical history: COPD Past surgical history: Tracheostomy Family history: Denies hematologic and oncologic problems Social history: Former 1/2 ppd x 30 years, former alcohol abuse Allergies: NKA Review of systems: All remaining review of systems including HEENT, cardiovascular, respiratory, gastrointestinal, genitourinary, musculoskeletal, dermatologic, neurologic, and psychiatric are negative unless mentioned in the HPI. Past Patient History - Past Medical History & Family History Past Medical History?: Yes - Past Social History Smoking Status: Former Smoker - CARDIAC Hx Congestive Heart Failure: Yes Hx Hypertension: Yes - PULMONARY Hx Chronic Obstructive Pulmonary Disease (COPD): Yes - NEUROLOGICAL Hx Neurological Disorder: Yes Hx Dizziness: Yes - ENDOCRINE/METABOLIC Hx Diabetes Mellitus Type 2: Yes - MUSCULOSKELETAL/RHEUMATOLOGICAL Hx Falls: Yes - GASTROINTESTINAL Hx Gastrointestinal Disorders: No - GENITOURINARY/GYNECOLOGICAL Hx Genitourinary Disorders: No - PSYCHIATRIC Hx Substance Use: No - SURGICAL HISTORY Hx Surgeries: No - ANESTHESIA Hx Anesthesia: No Meds Allergies/Adverse Reactions: Allergies Allergy/AdvReac Type Severity Reaction Status Date / Time No Known Allergies Allergy Verified 11/11/17 13:45 - Medications Medications: Current Medications Albuterol/Ipratropium (Duoneb 3 Mg/0.5 Mg (3 Ml) Ud) 3 ml INH RQ6 [facility] Last Admin: 11/25/17 19:14 Dose: 3 ml Heparin Sodium (Porcine) (Heparin) 5,000 units SC Q12 [facility] Last Admin: 11/25/17 10:56 Dose: 5,000 units Hydralazine HCl (Apresoline) 5 mg IVP Q8H PRN PRN Reason: for SBP 180 and above Last Admin: 11/23/17 13:29 Dose: 5 mg Cefepime HCl (Maxipime Iv 1 Gm Premix) 1 gm in 50 mls @ 100 mls/hr IVPB Q12H [facility] Last Admin: 11/25/17 17:30 Dose: 100 mls/hr Sodium Chloride (Sodium Chloride 0.9%) 1,000 mls @ 10 mls/hr IV .Q24H [facility] Last Admin: 11/25/17 11:45 Dose: Not Given Dextrose/Sodium Chloride (Dextrose 5%/0.45% Ns 1000 Ml) 1,000 mls @ 100 mls/hr IV .Q10H [facility] Last Admin: 11/25/17 10:55 Dose: Not Given Methylprednisolone (Solu-Medrol) 40 mg IVP Q6 [facility] Last Admin: 11/25/17 17:25 Dose: 40 mg Pantoprazole Sodium (Protonix Inj) 40 mg IVP DAILY [facility] Last Admin: 11/25/17 10:56 Dose: 40 mg Tiotropium [place] (Spiriva) 18 mcg INH RQ24 [facility] Last Admin: 11/25/17 13:21 Dose: Not Given Physical Exam - Constitutional Appears: Cachectic - Head Exam Head Exam: ATRAUMATIC - ENT Exam ENT Exam: Mucous Membranes Dry - Respiratory Exam Respiratory Exam: NORMAL BREATHING PATTERN - Cardiovascular Exam Cardiovascular Exam: +S1, +S2 - GI/Abdominal Exam GI & Abdominal Exam: Normal Bowel Sounds - Extremities Exam Extremities exam: Positive for: normal inspection - Neurological Exam Neurological exam: Oriented x3 - Psychiatric Exam Psychiatric exam: Normal Affect, Normal Mood - Skin Skin Exam: Warm Results - Vital Signs Recent Vital Signs: Last Vital Signs Temp 97.3 F L 11/25/17 15:00 Pulse 75 11/25/17 15:00 Resp 20 11/25/17 15:00 BP 170/89 H 11/25/17 15:00 Pulse Ox 96 11/25/17 15:00 - Labs Result Diagrams: 11/24/17 06:55 11/24/17 06:55 Labs: Laboratory Results - last 24 hr 11/24/17 11/25/17 11/25/17 21:32 02:17 07:18 POC Glucose (mg/dL) 176 H 106 109 11/25/17 11/25/17 11:06 16:35 POC Glucose (mg/dL) 119 H 153 H Assessment & Plan (1) Laryngeal cancer Assessment and Plan: appears to have at least a T4 lesion outpatient PET CT scan to complete staging further treatment recommendations based on staging Status: Acute (2) Anemia Assessment and Plan: will check ferritin, retic count, b12, folate to further characterize likely chronic disease Status: Acute (3) Leukopenia Assessment and Plan: benign Thank you for this interesting consult. Status: Acute
[2017-11-26] MEDS: MethylPREDNISolone 40 mg Vial IVP SCH ×5 (00:02→23:59)
[2017-11-26] MEDS: Albuterol-Ipratrop 3 mg / 0.5 (3 ml) UD INH SCH ×4 (01:09→19:14)
[2017-11-26] MEDS: Dextrose 5%/0.45% NS 1,000 ML IV SCH ×2 (05:55→16:00)
[2017-11-26] MEDS: Cefepime IV 1 gm in Dextrose 1 GM/50 ML BAG IVPB SCH ×2 (06:07→18:32)
[2017-11-26] MEDS: Tiotropium 18 mcg Cap For Inhalation INH SCH (09:08)
--- NOTE | 2017-11-26 13:04 | CP.PCM.PN ---
Subjective - Date & Time of Evaluation Date of Evaluation: 11/26/17 Time of Evaluation: 13:04 Objective - Vital Signs/Intake and Output Vital Signs (last 24 hours): Temp Pulse Resp BP Pulse Ox 97.4 F L 81 20 172/118 H 97 11/26/17 08:57 11/26/17 08:57 11/26/17 08:57 11/26/17 08:57 11/26/17 08:57 Intake and Output: 11/26/17 11/26/17 06:59 18:59 Intake Total 2620 Output Total 300 Balance 2320 - Medications Medications: Current Medications Heparin Sodium (Porcine) (Heparin) 5,000 units SC Q12 [facility] Last Admin: 11/26/17 10:53 Dose: 5,000 units Hydralazine HCl (Apresoline) 5 mg IVP Q8H PRN PRN Reason: for SBP 180 and above Last Admin: 11/23/17 13:29 Dose: 5 mg Cefepime HCl (Maxipime Iv 1 Gm Premix) 1 gm in 50 mls @ 100 mls/hr IVPB Q12H [facility] Last Admin: 11/26/17 06:07 Dose: 100 mls/hr Sodium Chloride (Sodium Chloride 0.9%) 1,000 mls @ 10 mls/hr IV .Q24H [facility] Last Admin: 11/25/17 11:45 Dose: Not Given Dextrose/Sodium Chloride (Dextrose 5%/0.45% Ns 1000 Ml) 1,000 mls @ 100 mls/hr IV .Q10H [facility] Last Admin: 11/26/17 05:55 Dose: 100 mls/hr Methylprednisolone (Solu-Medrol) 40 mg IVP Q6 [facility] Last Admin: 11/26/17 06:11 Dose: 40 mg Pantoprazole Sodium (Protonix Inj) 40 mg IVP DAILY [facility] Last Admin: 11/26/17 10:53 Dose: 40 mg Tiotropium [place] (Spiriva) 18 mcg INH RQ24 [facility] Last Admin: 11/26/17 09:08 Dose: Not Given - Labs Labs: 11/24/17 06:55 11/24/17 06:55 PT 14.1 SECONDS (9.7-12.2) H 11/24/17 06:55 INR 1.3 11/24/17 06:55 APTT 33 SECONDS (21-34) 11/23/17 04:00
[2017-11-26] MEDS: Sodium Chloride 0.9% 1,000 ML IV SCH (14:14)
--- NOTE | 2017-11-26 16:25 | CP.PCM.PN ---
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 secretions + Objective - Vital Signs/Intake and Output Vital Signs (last 24 hours): Temp Pulse Resp BP Pulse Ox 97.5 F L 81 20 136/83 98 11/26/17 15:00 11/26/17 15:00 11/26/17 15:00 11/26/17 15:00 11/26/17 15:00 Intake and Output: 11/26/17 11/26/17 06:59 18:59 Intake Total 2620 Output Total 300 Balance 2320 - Medications Medications: Current Medications Albuterol/Ipratropium (Duoneb 3 Mg/0.5 Mg (3 Ml) Ud) 3 ml INH RQ6 [facility] Heparin Sodium (Porcine) (Heparin) 5,000 units SC Q12 [facility] Last Admin: 11/26/17 10:53 Dose: 5,000 units Hydralazine HCl (Apresoline) 5 mg IVP Q8H PRN PRN Reason: for SBP 180 and above Last Admin: 11/23/17 13:29 Dose: 5 mg Cefepime HCl (Maxipime Iv 1 Gm Premix) 1 gm in 50 mls @ 100 mls/hr IVPB Q12H [facility] Last Admin: 11/26/17 06:07 Dose: 100 mls/hr Sodium Chloride (Sodium Chloride 0.9%) 1,000 mls @ 10 mls/hr IV .Q24H [facility] Last Admin: 11/26/17 14:14 Dose: Not Given Dextrose/Sodium Chloride (Dextrose 5%/0.45% Ns 1000 Ml) 1,000 mls @ 100 mls/hr IV .Q10H [facility] Last Admin: 11/26/17 05:55 Dose: 100 mls/hr Methylprednisolone (Solu-Medrol) 40 mg IVP Q6 [facility] Last Admin: 11/26/17 12:00 Dose: 40 mg Pantoprazole Sodium (Protonix Inj) 40 mg IVP DAILY [facility] - Labs Labs: 11/24/17 06:55 11/24/17 06:55 PT 14.1 SECONDS (9.7-12.2) H 11/24/17 06:55 INR 1.3 11/24/17 06:55 APTT 33 SECONDS (21-34) 11/23/17 04:00 - Constitutional Appears: Non-toxic, Chronically Ill - Head Exam Head Exam: NORMOCEPHALIC - Eye Exam Eye Exam: PERRL - ENT Exam ENT Exam: Mucous Membranes Dry - Neck Exam Neck Exam: absent: Lymphadenopathy - Respiratory Exam Respiratory Exam: Decreased Breath Sounds - Cardiovascular Exam Cardiovascular Exam: REGULAR RHYTHM - GI/Abdominal Exam GI & Abdominal Exam: Distended, Soft - Rectal Exam Rectal Exam: Deferred - Exam Exam: NORMAL INSPECTION - Extremities Exam Extremities Exam: absent: Pedal Edema - Back Exam Back Exam: absent: CVA tenderness (L), CVA tenderness (R) Assessment and Plan (1) Acute hypercapnic respiratory failure Status: Acute (2) Hypothermia Status: Acute (3) Syncope and collapse Status: Acute (4) Toxic metabolic encephalopathy Status: Acute (5) CHF (congestive heart failure) Status: Acute (6) COPD exacerbation Status: Acute (7) Chr obstructive pulmonary disease w/ acute lower respiratory infxn Status: Acute
--- NOTE | 2017-11-26 20:01 | CP.PCM.PN ---
Subjective - Date & Time of Evaluation Date of Evaluation: 11/26/17 Time of Evaluation: 17:00 - Subjective Subjective: No complaints, pt asked me to notify his friend Randolph about his diagnosis Objective - Vital Signs/Intake and Output Vital Signs (last 24 hours): Temp Pulse Resp BP Pulse Ox 97.5 F L 81 20 136/83 98 11/26/17 15:00 11/26/17 15:00 11/26/17 15:00 11/26/17 15:00 11/26/17 15:00 - Medications Medications: Current Medications Albuterol/Ipratropium (Duoneb 3 Mg/0.5 Mg (3 Ml) Ud) 3 ml INH RQ6 [facility] Last Admin: 11/26/17 19:14 Dose: 3 ml Heparin Sodium (Porcine) (Heparin) 5,000 units SC Q12 [facility] Last Admin: 11/26/17 10:53 Dose: 5,000 units Hydralazine HCl (Apresoline) 5 mg IVP Q8H PRN PRN Reason: for SBP 180 and above Last Admin: 11/23/17 13:29 Dose: 5 mg Cefepime HCl (Maxipime Iv 1 Gm Premix) 1 gm in 50 mls @ 100 mls/hr IVPB Q12H [facility] Last Admin: 11/26/17 18:32 Dose: 100 mls/hr Sodium Chloride (Sodium Chloride 0.9%) 1,000 mls @ 10 mls/hr IV .Q24H [facility] Last Admin: 11/26/17 14:14 Dose: Not Given Dextrose/Sodium Chloride (Dextrose 5%/0.45% Ns 1000 Ml) 1,000 mls @ 100 mls/hr IV .Q10H [facility] Last Admin: 11/26/17 05:55 Dose: 100 mls/hr Methylprednisolone (Solu-Medrol) 40 mg IVP Q6 [facility] Last Admin: 11/26/17 18:33 Dose: 40 mg Pantoprazole Sodium (Protonix Inj) 40 mg IVP DAILY [facility] - Labs Labs: 11/24/17 06:55 11/24/17 06:55 PT 14.1 SECONDS (9.7-12.2) H 11/24/17 06:55 INR 1.3 11/24/17 06:55 APTT 33 SECONDS (21-34) 11/23/17 04:00 - Constitutional Appears: Cachectic - ENT Exam ENT Exam: Mucous Membranes Dry - Respiratory Exam Respiratory Exam: NORMAL BREATHING PATTERN - Cardiovascular Exam Cardiovascular Exam: +S1, +S2 - GI/Abdominal Exam GI & Abdominal Exam: Normal Bowel Sounds Assessment and Plan (1) Laryngeal cancer Assessment & Plan: outpatient PET CT scan further treatment recs based on staging Status: Acute (2) Anemia Assessment & Plan: anemia w/u pending Status: Acute (3) Leukopenia Status: Acute
[2017-11-27] MEDS: Albuterol-Ipratrop 3 mg / 0.5 (3 ml) UD INH SCH ×4 (01:30→20:06)
[2017-11-27] MEDS: Dextrose 5%/0.45% NS 1,000 ML IV SCH ×4 (01:45→23:44)
[2017-11-27] MEDS: Cefepime IV 1 gm in Dextrose 1 GM/50 ML BAG IVPB SCH ×2 (06:00→18:01)
[2017-11-27] MEDS: MethylPREDNISolone 40 mg Vial IVP SCH ×5 (06:00→23:40)
[2017-11-27] MEDS: Sodium Chloride 0.9% 1,000 ML IV SCH (11:15)
--- NOTE | 2017-11-27 13:04 | CP.PCM.PN ---
Subjective - Date & Time of Evaluation Date of Evaluation: 11/27/17 Time of Evaluation: 13:01 - Subjective Subjective: Mr. Carmona was seen and examined at the bedside. He is alert and oriented in all spheres. He is able to communicate and form words with no sounds. He has trach connected to an [facility]. He has moderate amount of whitish secretions. He is able to follow simple commands. There was no untoward events overnight. Objective - Vital Signs/Intake and Output Vital Signs (last 24 hours): Temp Pulse Resp BP Pulse Ox 98.3 F 84 20 143/82 99 11/27/17 08:00 11/27/17 08:00 11/27/17 08:00 11/27/17 08:00 11/27/17 08:00 Intake and Output: 11/27/17 11/27/17 06:59 18:59 Intake Total 600 Output Total 250 Balance 350 - Medications Medications: Current Medications Albuterol/Ipratropium (Duoneb 3 Mg/0.5 Mg (3 Ml) Ud) 3 ml INH RQ6 [facility] Last Admin: 11/27/17 07:25 Dose: 3 ml Heparin Sodium (Porcine) (Heparin) 5,000 units SC Q12 [facility] Last Admin: 11/27/17 09:41 Dose: 5,000 units Hydralazine HCl (Apresoline) 5 mg IVP Q8H PRN PRN Reason: for SBP 180 and above Last Admin: 11/23/17 13:29 Dose: 5 mg Cefepime HCl (Maxipime Iv 1 Gm Premix) 1 gm in 50 mls @ 100 mls/hr IVPB Q12H [facility] Last Admin: 11/27/17 06:00 Dose: Not Given Dextrose/Sodium Chloride (Dextrose 5%/0.45% Ns 1000 Ml) 1,000 mls @ 100 mls/hr IV .Q10H [facility] Last Admin: 11/27/17 11:17 Dose: Not Given Methylprednisolone (Solu-Medrol) 40 mg IVP Q6 [facility] Last Admin: 11/27/17 12:02 Dose: Not Given Pantoprazole Sodium (Protonix Inj) 40 mg IVP DAILY [facility] Last Admin: 11/27/17 09:42 Dose: Not Given - Labs Labs: 11/24/17 06:55 11/24/17 06:55 PT 14.1 SECONDS (9.7-12.2) H 11/24/17 06:55 INR 1.3 11/24/17 06:55 APTT 33 SECONDS (21-34) 11/23/17 04:00 - Constitutional Appears: No Acute Distress - Head Exam Head Exam: NORMAL INSPECTION - Neurological Exam Neurological Exam: Alert, Awake, Oriented x3 Neuro motor strength exam: Left Upper Extremity: 5, Right Upper Extremity: 5, Left Lower Extremity: 5, Right Lower Extremity: 5 Additional comments: Neurological unchanged from previous examination. Assessment and Plan (1) Toxic metabolic encephalopathy Assessment & Plan: Case discussed with Dr. Chavez, continue all current medical regimen . There is no new recommendations from neurology. Status: Acute
--- NOTE | 2017-11-27 13:55 | CP.PCM.PN ---
Subjective - Date & Time of Evaluation Date of Evaluation: 11/27/17 Time of Evaluation: 13:54 Objective - Vital Signs/Intake and Output Vital Signs (last 24 hours): Temp Pulse Resp BP Pulse Ox 98.3 F 84 20 143/82 99 11/27/17 08:00 11/27/17 08:00 11/27/17 08:00 11/27/17 08:00 11/27/17 08:00 Intake and Output: 11/27/17 11/27/17 06:59 18:59 Intake Total 600 Output Total 250 Balance 350 - Medications Medications: Current Medications Albuterol/Ipratropium (Duoneb 3 Mg/0.5 Mg (3 Ml) Ud) 3 ml INH RQ6 [facility] Last Admin: 11/27/17 13:34 Dose: 3 ml Heparin Sodium (Porcine) (Heparin) 5,000 units SC Q12 [facility] Last Admin: 11/27/17 09:41 Dose: 5,000 units Hydralazine HCl (Apresoline) 5 mg IVP Q8H PRN PRN Reason: for SBP 180 and above Last Admin: 11/23/17 13:29 Dose: 5 mg Cefepime HCl (Maxipime Iv 1 Gm Premix) 1 gm in 50 mls @ 100 mls/hr IVPB Q12H [facility] Last Admin: 11/27/17 06:00 Dose: Not Given Dextrose/Sodium Chloride (Dextrose 5%/0.45% Ns 1000 Ml) 1,000 mls @ 100 mls/hr IV .Q10H [facility] Last Admin: 11/27/17 11:17 Dose: Not Given Methylprednisolone (Solu-Medrol) 40 mg IVP Q6 [facility] Last Admin: 11/27/17 12:02 Dose: Not Given Pantoprazole Sodium (Protonix Inj) 40 mg IVP DAILY [facility] Last Admin: 11/27/17 09:42 Dose: Not Given - Labs Labs: 11/24/17 06:55 11/24/17 06:55 PT 14.1 SECONDS (9.7-12.2) H 11/24/17 06:55 INR 1.3 11/24/17 06:55 APTT 33 SECONDS (21-34) 11/23/17 04:00
--- NOTE | 2017-11-27 14:04 | RAD ---
HISTORY: Verify PICC placement. Portable study 13:45. COMPARISON: 11/22/2017. FINDINGS: LUNGS: Persistent consolidative changes approximately stable. PLEURA: Stable bilateral pleural effusions. CARDIOVASCULAR: PICC line in satisfactory position the tip within 3 cm of the cavoatrial junction. . OSSEOUS STRUCTURES: No significant abnormalities. VISUALIZED UPPER ABDOMEN: Normal. OTHER FINDINGS: Stable, satisfactory position of tracheostomy device. IMPRESSION: Satisfactory position of recently placed PICC line. Otherwise no significant interval change.
[2017-11-27 14:52] LABS: BASO % 0.4 % (0.0-2.0); EOS % 0.5 % (0.0-4.0); HEMOGLOBIN 11.1 g/dL (12.0-18.0); LYMPH # 0.3 K/uL (1.0-4.3); LYMPH % 8.9 % (20.0-40.0); MEAN CELL VOLUME 86.7 fL (80.0-94.0); MEAN CORPUSCULAR HEMOGLOBIN 27.7 pg (27.0-31.0); MEAN PLATELET VOLUME 8.3 fL (7.2-11.7); MONO # 0.2 K/uL (0.0-0.8); MONO % 5.5 % (0.0-10.0); NEUT % 84.7 % (50.0-75.0); PLATELET COUNT 135 K/uL (130-400); RED CELL DISTRIBUTION WIDTH 16.2 % (11.5-14.5); WHITE BLOOD COUNT 3.5 K/uL (4.8-10.8)
[2017-11-27 15:13] LABS: ALB/GLOB RATIO 0.9 (1.0-2.1); ALBUMIN 2.2 g/dL (3.5-5.0); ALT/SGPT 37 U/L (21-72); AST/SGOT 29 U/L (17-59); BLOOD UREA NITROGEN 26 mg/dL (9-20); GFR AFRICAN-AMERICAN > 60; GFR NON-AFRICAN AMERICAN > 60
[2017-11-27 16:21] LABS: FOLATE 5.9 ng/mL
--- NOTE | 2017-11-27 18:09 | CP.PCM.PN ---
Objective - Vital Signs/Intake and Output Vital Signs (last 24 hours): Temp Pulse Resp BP Pulse Ox 98.5 F 80 20 130/75 98 11/27/17 15:00 11/27/17 15:00 11/27/17 15:00 11/27/17 15:00 11/27/17 15:00 Intake and Output: 11/27/17 11/27/17 06:59 18:59 Intake Total 600 750 Output Total 250 350 Balance 350 400 - Medications Medications: Current Medications Albuterol/Ipratropium (Duoneb 3 Mg/0.5 Mg (3 Ml) Ud) 3 ml INH RQ6 [facility] Last Admin: 11/27/17 13:34 Dose: 3 ml Heparin Sodium (Porcine) (Heparin) 5,000 units SC Q12 [facility] Last Admin: 11/27/17 09:41 Dose: 5,000 units Hydralazine HCl (Apresoline) 5 mg IVP Q8H PRN PRN Reason: for SBP 180 and above Last Admin: 11/23/17 13:29 Dose: 5 mg Cefepime HCl (Maxipime Iv 1 Gm Premix) 1 gm in 50 mls @ 100 mls/hr IVPB Q12H [facility] Last Admin: 11/27/17 18:01 Dose: 100 mls/hr Dextrose/Sodium Chloride (Dextrose 5%/0.45% Ns 1000 Ml) 1,000 mls @ 100 mls/hr IV .Q10H [facility] Last Admin: 11/27/17 11:17 Dose: Not Given Methylprednisolone (Solu-Medrol) 40 mg IVP Q6 [facility] Last Admin: 11/27/17 12:02 Dose: Not Given Pantoprazole Sodium (Protonix Inj) 40 mg IVP DAILY [facility] Last Admin: 11/27/17 09:42 Dose: Not Given - Labs Labs: 11/27/17 14:41 11/27/17 14:41 PT 14.1 SECONDS (9.7-12.2) H 11/24/17 06:55 INR 1.3 11/24/17 06:55 APTT 33 SECONDS (21-34) 11/23/17 04:00 Assessment and Plan (1) Acute hypercapnic respiratory failure Status: Acute (2) COPD exacerbation Status: Acute
[2017-11-27 19:05] LABS: LYMPHOCYTE 10 % (20-40); MONOCYTE 4 % (0-10); NEUTROPHIL 86 % (50-75); TOTAL CELLS COUNTED 100
[2017-11-27 19:06] LABS: HYPOCHROMIC SLIGHT; PLATELET ESTIMATE NORMAL (NORMAL)
[2017-11-27 19:07] LABS: PLATELET CLUMPS PRESENT
[2017-11-28] MEDS: Albuterol-Ipratrop 3 mg / 0.5 (3 ml) UD INH SCH ×3 (02:11→13:53)
[2017-11-28] MEDS: MethylPREDNISolone 40 mg Vial IVP SCH ×3 (05:13→17:32)
[2017-11-28] MEDS: Cefepime IV 1 gm in Dextrose 1 GM/50 ML BAG IVPB SCH ×2 (05:14→17:32)
--- NOTE | 2017-11-28 13:40 | CP.PCM.PN ---
Subjective - Date & Time of Evaluation Date of Evaluation: 11/28/17 Time of Evaluation: 13:39 Objective - Vital Signs/Intake and Output Vital Signs (last 24 hours): Temp Pulse Resp BP Pulse Ox 98.0 F 75 20 149/80 99 11/28/17 07:20 11/28/17 07:20 11/28/17 07:20 11/28/17 07:20 11/28/17 07:20 Intake and Output: 11/28/17 11/28/17 06:59 18:59 Intake Total 1450 Output Total 200 Balance 1250 - Medications Medications: Current Medications Albuterol/Ipratropium (Duoneb 3 Mg/0.5 Mg (3 Ml) Ud) 3 ml INH RQ6 [facility] Last Admin: 11/28/17 07:54 Dose: 3 ml Hydralazine HCl (Apresoline) 5 mg IVP Q8H PRN PRN Reason: for SBP 180 and above Last Admin: 11/23/17 13:29 Dose: 5 mg Cefepime HCl (Maxipime Iv 1 Gm Premix) 1 gm in 50 mls @ 100 mls/hr IVPB Q12H [facility] Last Admin: 11/28/17 05:14 Dose: 100 mls/hr Methylprednisolone (Solu-Medrol) 40 mg IVP Q6 [facility] Last Admin: 11/28/17 11:45 Dose: 40 mg Pantoprazole Sodium (Protonix Inj) 40 mg IVP DAILY [facility] Last Admin: 11/28/17 11:45 Dose: 40 mg - Labs Labs: 11/27/17 14:41 11/27/17 14:41 PT 14.1 SECONDS (9.7-12.2) H 11/24/17 06:55 INR 1.3 11/24/17 06:55 APTT 33 SECONDS (21-34) 11/23/17 04:00
[2017-11-28 16:05] VITALS: BP 152/75; PULSE 81; TEMP 98.1; O2SAT 100
--- NOTE | 2017-11-28 17:17 | CP.PCM.PN ---
Subjective - Date & Time of Evaluation Date of Evaluation: 11/27/17 Time of Evaluation: 11:00 - Subjective Subjective: No complaints. Objective - Vital Signs/Intake and Output Vital Signs (last 24 hours): Temp Pulse Resp BP Pulse Ox 98.1 F 81 20 152/75 H 100 11/28/17 16:00 11/28/17 16:00 11/28/17 16:00 11/28/17 16:00 11/28/17 16:00 Intake and Output: 11/28/17 11/28/17 06:59 18:59 Intake Total 1450 Output Total 200 450 Balance 1250 -450 - Medications Medications: Current Medications Albuterol/Ipratropium (Duoneb 3 Mg/0.5 Mg (3 Ml) Ud) 3 ml INH RQ6 [facility] Last Admin: 11/28/17 13:53 Dose: 3 ml Hydralazine HCl (Apresoline) 5 mg IVP Q8H PRN PRN Reason: for SBP 180 and above Last Admin: 11/23/17 13:29 Dose: 5 mg Cefepime HCl (Maxipime Iv 1 Gm Premix) 1 gm in 50 mls @ 100 mls/hr IVPB Q12H [facility] Last Admin: 11/28/17 05:14 Dose: 100 mls/hr Methylprednisolone (Solu-Medrol) 40 mg IVP Q6 [facility] Last Admin: 11/28/17 11:45 Dose: 40 mg Pantoprazole Sodium (Protonix Inj) 40 mg IVP DAILY [facility] Last Admin: 11/28/17 11:45 Dose: 40 mg Pneumococcal Polyvalent Vaccine (Pneumovax 23 Vaccine) 0.5 ml IM .ONCE ONE Stop: 11/28/17 17:31 - Labs Labs: 11/27/17 14:41 11/27/17 14:41 PT 14.1 SECONDS (9.7-12.2) H 11/24/17 06:55 INR 1.3 11/24/17 06:55 APTT 33 SECONDS (21-34) 11/23/17 04:00 - Head Exam Head Exam: ATRAUMATIC - Eye Exam Eye Exam: Normal appearance - ENT Exam ENT Exam: Mucous Membranes Dry - Respiratory Exam Respiratory Exam: NORMAL BREATHING PATTERN - Cardiovascular Exam Cardiovascular Exam: +S1, +S2 - GI/Abdominal Exam GI & Abdominal Exam: Normal Bowel Sounds Assessment and Plan (1) Laryngeal cancer Assessment & Plan: outpatient PET CT scan further treatment recs based on staging Status: Acute (2) Anemia Assessment & Plan: anemia w/u pending Status: Acute (3) Leukopenia Assessment & Plan: benign Status: Acute
--- NOTE | 2017-11-28 17:19 | CP.PCM.PN ---
Subjective - Date & Time of Evaluation Date of Evaluation: 11/28/17 Time of Evaluation: 14:00 - Subjective Subjective: No complaints. Objective - Vital Signs/Intake and Output Vital Signs (last 24 hours): Temp Pulse Resp BP Pulse Ox 98.1 F 81 20 152/75 H 100 11/28/17 16:00 11/28/17 16:00 11/28/17 16:00 11/28/17 16:00 11/28/17 16:00 Intake and Output: 11/28/17 11/28/17 06:59 18:59 Intake Total 1450 Output Total 200 450 Balance 1250 -450 - Medications Medications: Current Medications Albuterol/Ipratropium (Duoneb 3 Mg/0.5 Mg (3 Ml) Ud) 3 ml INH RQ6 [facility] Last Admin: 11/28/17 13:53 Dose: 3 ml Hydralazine HCl (Apresoline) 5 mg IVP Q8H PRN PRN Reason: for SBP 180 and above Last Admin: 11/23/17 13:29 Dose: 5 mg Cefepime HCl (Maxipime Iv 1 Gm Premix) 1 gm in 50 mls @ 100 mls/hr IVPB Q12H [facility] Last Admin: 11/28/17 05:14 Dose: 100 mls/hr Methylprednisolone (Solu-Medrol) 40 mg IVP Q6 [facility] Last Admin: 11/28/17 11:45 Dose: 40 mg Pantoprazole Sodium (Protonix Inj) 40 mg IVP DAILY [facility] Last Admin: 11/28/17 11:45 Dose: 40 mg Pneumococcal Polyvalent Vaccine (Pneumovax 23 Vaccine) 0.5 ml IM .ONCE ONE Stop: 11/28/17 17:31 - Labs Labs: 11/27/17 14:41 11/27/17 14:41 PT 14.1 SECONDS (9.7-12.2) H 11/24/17 06:55 INR 1.3 11/24/17 06:55 APTT 33 SECONDS (21-34) 11/23/17 04:00 - Head Exam Head Exam: ATRAUMATIC - Eye Exam Eye Exam: Normal appearance - ENT Exam ENT Exam: Mucous Membranes Dry - Respiratory Exam Respiratory Exam: NORMAL BREATHING PATTERN - Cardiovascular Exam Cardiovascular Exam: +S1, +S2 - GI/Abdominal Exam GI & Abdominal Exam: Normal Bowel Sounds Assessment and Plan (1) Laryngeal cancer Assessment & Plan: outpatient PET CT for staging further treatment recommendations based on staging Status: Acute (2) Anemia Assessment & Plan: anemia of chronic disease Status: Acute (3) Leukopenia Assessment & Plan: benign Status: Acute
[2017-11-28] MEDS ORDERED: Pneumococcal 23-Valent Vaccine IM ONE (17:30)
[2017-11-28] MEDS ORDERED: Influenza Vaccine 60 mcg/0.5 mL SYR (4YR UP) IM ONE (17:30)
--- NOTE | 2017-11-28 18:16 | CP.PCM.PN ---
Subjective - Date & Time of Evaluation Date of Evaluation: 11/28/17 Time of Evaluation: 11:25 - Subjective Subjective: Pt was seen and evaluated at bedside. Pt is s/p PICC line placement. Pt is awake , alert and in NAD. Resting comfortably in bed. Afebrile. Pt satting 99% on trach collar. States he is hungry and would like to eat. Pt recieving feedings through PEG tube. States cough is improved. Denies chest pain, shortness of breath, fever, chills. Exam: Lungs: Rhonchi bilaterally, decreased breath sounds at bases A/P: Hypercapneic respiratory failure Pt on trach collar Pt may be discharged with PO steroids and nebulizer treatments Antibiotics as per ID 11/20 ABG: pCO2: 45, pO2: 67, HCO3: 40, pH: 7. 59 11/27 CXR- Satisfactory position of PICC line. No interval change. Objective - Vital Signs/Intake and Output Vital Signs (last 24 hours): Temp Pulse Resp BP Pulse Ox 98.1 F 81 20 152/75 H 100 11/28/17 16:00 11/28/17 16:00 11/28/17 16:00 11/28/17 16:00 11/28/17 16:00 Intake and Output: 11/28/17 11/28/17 06:59 18:59 Intake Total 1450 Output Total 200 450 Balance 1250 -450 - Medications Medications: Current Medications Albuterol/Ipratropium (Duoneb 3 Mg/0.5 Mg (3 Ml) Ud) 3 ml INH RQ6 [facility] Last Admin: 11/28/17 13:53 Dose: 3 ml Hydralazine HCl (Apresoline) 5 mg IVP Q8H PRN PRN Reason: for SBP 180 and above Last Admin: 11/23/17 13:29 Dose: 5 mg Cefepime HCl (Maxipime Iv 1 Gm Premix) 1 gm in 50 mls @ 100 mls/hr IVPB Q12H [facility] Last Admin: 11/28/17 17:32 Dose: 100 mls/hr Methylprednisolone (Solu-Medrol) 40 mg IVP Q6 [facility] Last Admin: 11/28/17 17:32 Dose: 40 mg Pantoprazole Sodium (Protonix Inj) 40 mg IVP DAILY [facility] Last Admin: 11/28/17 11:45 Dose: 40 mg - Labs Labs: 11/27/17 14:41 11/27/17 14:41 PT 14.1 SECONDS (9.7-12.2) H 11/24/17 06:55 INR 1.3 11/24/17 06:55 APTT 33 SECONDS (21-34) 11/23/17 04:00 Assessment and Plan (1) Acute hypercapnic respiratory failure Status: Acute (2) COPD exacerbation Status: Acute
--- NOTE | 2017-12-08 01:14 | CP.PCM.DIS ---
Provider - Provider Date of Admission: 11/11/17 15:17 Attending physician: Hipolito Denton MD Time Spent in preparation of Discharge (in minutes): 25 Diagnosis - Discharge Diagnosis (1) Laryngeal cancer Status: Acute Hospital Course - Lab Results Lab Results: Micro Results 11/23/17 13:13 Naris MRSA Culture - Final MRSA NOT DETECTED 11/21/17 21:12 Naris MRSA Culture (Admit) - Final MRSA NOT DETECTED 11/17/17 14:53 Pleural Fluid Gram Stain - Final 11/17/17 14:53 Pleural Fluid Body Fluid Culture - Final No growth. 11/19/17 03:35 Nose MRSA Culture - Final MRSA NOT DETECTED 11/14/17 13:00 Blood Blood Culture - Final NO GROWTH AFTER 5 DAYS 11/14/17 13:00 Blood Gram Stain - Final TEST NOT PERFORMED 11/14/17 12:30 Blood Blood Culture - Final NO GROWTH AFTER 5 DAYS 11/14/17 12:30 Blood Gram Stain - Final TEST NOT PERFORMED 11/11/17 13:54 Blood Blood Culture - Final NO GROWTH AFTER 5 DAYS 11/11/17 13:54 Blood Gram Stain - Final TEST NOT PERFORMED 11/11/17 14:25 Blood Blood Culture - Final NO GROWTH AFTER 5 DAYS 11/11/17 14:25 Blood Gram Stain - Final TEST NOT PERFORMED Most Recent Lab Values WBC 3.5 K/uL (4.8-10.8) L 11/27/17 14:41 RBC 4.00 Mil/uL (4.40-5.90) L 11/27/17 14:41 Hgb 11.1 g/dL (12.0-18.0) L 11/27/17 14:41 Hct 34.6 % (35.0-51.0) L 11/27/17 14:41 MCV 86.7 fL (80.0-94.0) 11/27/17 14:41 MCH 27.7 pg (27.0-31.0) 11/27/17 14:41 MCHC 32.0 g/dL (33.0-37.0) L 11/27/17 14:41 RDW 16.2 % (11.5-14.5) H 11/27/17 14:41 Plt Count 135 K/uL (130-400) 11/27/17 14:41 MPV 8.3 fL (7.2-11.7) 11/27/17 14:41 Neut % (Auto) 84.7 % (50.0-75.0) H 11/27/17 14:41 Lymph % (Auto) 8.9 % (20.0-40.0) L 11/27/17 14:41 [place] % (Auto) 5.5 % (0.0-10.0) 11/27/17 14:41 Eos % (Auto) 0.5 % (0.0-4.0) 11/27/17 14:41 Baso % (Auto) 0.4 % (0.0-2.0) 11/27/17 14:41 Neut # 3.0 K/uL (1.8-7.0) 11/27/17 14:41 Lymph # 0.3 K/uL (1.0-4.3) L 11/27/17 14:41 [place] # 0.2 K/uL (0.0-0.8) 11/27/17 14:41 Eos # 0.0 K/uL (0.0-0.7) 11/27/17 14:41 Baso # 0.0 K/uL (0.0-0.2) 11/27/17 14:41 Neutrophils % (Manual) 86 % (50-75) H 11/27/17 14:41 Band Neutrophils % 10 % (0-2) H 11/17/17 06:28 Lymphocytes % (Manual) 10 % (20-40) L 11/27/17 14:41 Monocytes % (Manual) 4 % (0-10) 11/27/17 14:41 Eosinophils % (Manual) 1 % (0-4) 11/17/17 06:28 Toxic Granulation Present 11/13/17 06:43 Platelet Estimate Normal (NORMAL) 11/27/17 14:41 Plt Clumps, EDTA Present 11/27/17 14:41 Large Platelets Present 11/16/17 06:18 Polychromasia Slight 11/23/17 06:36 Hypochromasia (manual) Slight 11/27/17 14:41 Poikilocytosis (manual Slight 11/17/17 06:28 Anisocytosis (manual) Slight 11/23/17 06:36 Macrocytosis (manual) Slight 11/27/17 14:41 Target Cells Slight 11/23/17 06:36 Ovalocytes Slight 11/23/17 06:36 [place] Cells Slight 11/11/17 19:17 Retic Count 0.3 % (0.5-1.5) L 11/27/17 14:41 PT 14.1 SECONDS (9.7-12.2) H 11/24/17 06:55 INR 1.3 11/24/17 06:55 APTT 33 SECONDS (21-34) 11/23/17 04:00 Puncture Site Rra 11/20/17 12:49 pCO2 45 mm/Hg (35-45) 11/20/17 12:49 pO2 67 mm/Hg (80-100) L 11/20/17 12:49 HCO3 40.0 mmol/L (21-28) H 11/20/17 12:49 ABG pH 7.59 (7.35-7.45) H 11/20/17 12:49 ABG Total CO2 44.6 mmol/L (22-28) H 11/20/17 12:49 ABG O2 Saturation 98.0 % (95-98) 11/20/17 12:49 ABG Base Excess 19.4 mmol/L (-2.0-3.0) H 11/20/17 12:49 ABG Hemoglobin 10.5 g/dL (11.7-17.4) L 11/20/17 12:49 ABG Carboxyhemoglobin 2.4 % (0.5-1.5) H 11/20/17 12:49 POC ABG HHb (Measured) 1.9 % (0.0-5.0) 11/20/17 12:49 ABG Methemoglobin 1.4 % (0.0-3.0) 11/20/17 12:49 Suraj Test Pos 11/20/17 12:49 ABG Potassium 3.6 mmol/L (3.6-5.2) 11/11/17 17:10 A-a O2 Difference 162.0 mm/Hg 11/20/17 12:49 Respiratory Index 2.4 11/20/17 12:49 Hgb O2 Saturation 94.3 % (95.0-98.0) L 11/20/17 12:49 Sodium 140.0 mmol/l (132-148) 11/11/17 17:10 Chloride 102.0 mmol/L (98-107) 11/11/17 17:10 Glucose 107 mg/dl (75-110) 11/11/17 17:10 Lactate 1.3 mmol/L (0.7-2.1) 11/11/17 17:10 Liter Flow 3.0 11/18/17 12:19 Vent Mode Bipap 11/20/17 12:49 Mechanical Rate 12 11/13/17 04:50 FiO2 40.0 % 11/20/17 12:49 Tidal Volume 400 11/13/17 04:50 PEEP 5 11/13/17 04:50 Inspiratory BiPAP 12 11/20/17 12:49 Expiratory BiPAP 6 11/20/17 12:49 Crit Value Called To Dr yanes 11/18/17 12:19 Crit Value Called By Jaswant panchal rrt 11/18/17 12:19 Crit Value Read Back Y 11/18/17 12:19 Blood Gas Notified Time 1224 11/18/17 12:19 Sodium 126 mmol/L (132-148) L 11/27/17 14:41 Potassium 3.6 mmol/L (3.6-5.2) 11/27/17 14:41 Chloride 85 mmol/L (98-107) L 11/27/17 14:41 Carbon Dioxide 43 mmol/L (22-30) H* 11/27/17 14:41 Anion Gap 2 (10-20) L 11/27/17 14:41 BUN 26 mg/dL (9-20) H 11/27/17 14:41 Creatinine 0.3 mg/dL (0.8-1.5) L 11/27/17 14:41 Est GFR ( Amer) > 60 11/27/17 14:41 Est GFR (Non-Af Amer) > 60 11/27/17 14:41 POC Glucose (mg/dL) 127 mg/dL (65-110) H 11/28/17 16:48 Random Glucose 84 mg/dL (75-110) 11/27/17 14:41 Hemoglobin A1c 6.1 % (4.2-6.5) 11/15/17 09:12 Calcium 7.0 mg/dl (8.6-10.4) L 11/27/17 14:41 Phosphorus 2.9 mg/dL (2.5-4.5) 11/22/17 06:37 Magnesium 1.9 mg/dL (1.6-2.3) 11/22/17 06:37 Ferritin 873.0 ng/mL 11/27/17 14:41 Total Bilirubin 0.9 mg/dL (0.2-1.3) 11/27/17 14:41 AST 29 U/L (17-59) 11/27/17 14:41 ALT 37 U/L (21-72) 11/27/17 14:41 Alkaline Phosphatase 59 U/L (38-126) 11/27/17 14:41 Ammonia 23 umol/L (9-33) 11/15/17 04:00 Lactate Dehydrogenase 553 U/L (313-618) 11/19/17 16:19 Total Creatine Kinase 495 U/L (55-170) H 11/11/17 15:24 Troponin I < 0.0120 ng/mL (0.00-0.120) 11/11/17 15:24 NT-Pro-B Natriuret Pep 978 pg/mL (0-900) H 11/11/17 15:24 Total Protein 4.5 g/dL (6.3-8.3) L 11/27/17 14:41 Albumin 2.2 g/dL (3.5-5.0) L 11/27/17 14:41 Globulin 2.3 gm/dL (2.2-3.9) 11/27/17 14:41 Albumin/Globulin Ratio 0.9 (1.0-2.1) L 11/27/17 14:41 Prostate Specific Ag 5.87 ng/mL (0.00-4.0) H 11/15/17 06:17 Vitamin B12 452 pg/mL (239-931) 11/27/17 14:41 Folate 5.9 ng/mL 11/27/17 14:41 Procalcitonin 0.20 NG/ML (0.19-0.49) 11/14/17 17:47 Arterial Blood Potassium 3.6 mmol/L (3.6-5.2) 11/11/17 17:10 Urine Color Yellow (YELLOW) 11/11/17 16:39 Urine Clarity Clear (Clear) 11/11/17 16:39 Urine pH 5.0 (5.0-8.0) 11/11/17 16:39 Ur Specific [place] 1.019 (1.003-1.030) 11/11/17 16:39 Urine Protein 1+ mg/dL (NEGATIVE) H 11/11/17 16:39 Urine Glucose (UA) Normal mg/dL (Normal) 11/11/17 16:39 Urine Ketones 1+ mg/dL (NEGATIVE) H 11/11/17 16:39 Urine Blood 1+ (NEGATIVE) H 11/11/17 16:39 Urine Nitrate Negative (NEGATIVE) 11/11/17 16:39 Urine Bilirubin Negative (NEGATIVE) 11/11/17 16:39 Urine Urobilinogen 2.0 mg/dL (0.2-1.0) 11/11/17 16:39 Ur Leukocyte Esterase Neg Marii/uL (Negative) 11/11/17 16:39 Urine WBC (Auto) 1 /hpf (0-5) 11/11/17 16:39 Urine RBC (Auto) 7 /hpf (0-3) H 11/11/17 16:39 Hyaline Casts 6-10 /lpf (0-2) H 11/11/17 16:39 Urine Myoglobin < 28 mcg/L (< 28) 11/16/17 09:27 Pleural Total Protein <3.0 g/dL 11/17/17 14:18 Pleural LDH 100 U/L 11/17/17 14:18 Vancomycin Trough 9.9 ug/mL (5.0-10.0) 11/22/17 06:37 HSV Source Description Serum 11/16/17 12:26 HSV I DNA PCR Detected (Not Detected) H 11/16/17 12:26 HSV II DNA PCR Not detected (Not Detected) 11/16/17 12:26 HIV 1&2 Antibody Screen Negative (NEGATIVE) 11/14/17 13:08 Influenza Typ A,B (EIA) Negative for flu a/b (NEGATIVE) 11/11/17 14:18 - Hospital Course Hospital Course: 72-year-old male with a history of COPD was initially admitted with altered mental status and was intubated and admitted to intensive care unit. Patient eventually underwent tracheostomy and was found to have laryngeal mass. 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 Patient is currently off ventilator on a trach collar. He is awake and alert and is being transferred to [facility] for further management and care. Discharge Exam - Head Exam Head Exam: ATRAUMATIC - Eye Exam Eye Exam: Normal appearance - Respiratory Exam Respiratory Exam: Clear to PA & Lateral - Cardiovascular Exam Cardiovascular Exam: REGULAR RHYTHM - GI/Abdominal Exam GI & Abdominal Exam: Normal Bowel Sounds - Extremities Exam Extremities exam: normal inspection Discharge Plan - Follow Up Plan Condition: CRITICAL Disposition: [facility] Instructions: Heart Failure (DC), Heart Failure (GEN), Pacemaker (DC), Pacemaker (GEN), Pulmonary Edema (DC), Pulmonary Edema (GEN), Ascites (DC), Ascites (GEN), Fall Prevention (DC), Endotracheal Tube (GEN) Additional Instructions: PLEASE PLACE UNDER THE SERVICE OF DR. Rhonda DENTON WHILE AT [facility] NO FURTHER ANTIBIOTICS NEEDED PER DR FANG CONTINUE ALL MEDICATIONS PER MED REC FALL PRECAUTIONS PER FACILITY PROTOCOL WOUND CARE SACRUM, RIGHT HIP, LEFT LEG-- APPLY ALOEVESTA PROTECTIVE OINTMENT TO ALL OPEN AREAS TO SACRUM, RIGHT HIP, LEFT LATERAL LOWER LEG 3X/DAY A PROTECTIVE MEASURE PATIENT MUST BE REPOSITIONED FREQUENTLY TO OPTIMIZE OFFLOADING TUBE FEEDING- GLUCERNA 1.5 (50 ML/HR) WATER FLUSH 200 ML Q8H , ASPIRATION PRECAUTIONS PICC LINE CARE PER FACILITY PROTOCOL FOR FURTHER ORDERS, CALL DR. VELÁSQUEZ'S OFFICE (COVERING FOR DR. DENTON) Referrals: Ja Jose MD [Staff Provider] - Georges Kinney MD [Staff Provider] - Charlie Velásquez MD [Staff Provider] - Corwin Dia MD [Staff Provider] -
== END 2017-11-28 19:08 | DRG 208 ==
LOC: C.ER 13:37 → C.9I 15:17 → C.5S 11-18 23:54 → C.9I 11-21 20:06 → C.3T 11-23 13:44
PROVIDERS: ADMIT Internal Medicine Nephrology; ATTEND Internal Medicine Nephrology
PROC: 5A1945Z Respiratory Ventilation, 24-96 Consecutive Hours (ICD-10-PCS; principal; 2017-11-11)
PROC: 0BH17EZ Insertion of Endotracheal Airway into Trachea, Via Natural or Artificial Opening (ICD-10-PCS; 2017-11-11)
PROC: 0CJS8ZZ Inspection of Larynx, Via Natural or Artificial Opening Endoscopic (ICD-10-PCS; 2017-11-17)
PROC: 0W993ZX Drainage of Right Pleural Cavity, Percutaneous Approach, Diagnostic (ICD-10-PCS; 2017-11-17)
PROC: 0CBS8ZX Excision of Larynx, Via Natural or Artificial Opening Endoscopic, Diagnostic (ICD-10-PCS; 2017-11-21)
PROC: 0DH63UZ Insertion of Feeding Device into Stomach, Percutaneous Approach (ICD-10-PCS; 2017-11-24)
PROC: 0DB88ZX Excision of Small Intestine, Via Natural or Artificial Opening Endoscopic, Diagnostic (ICD-10-PCS; 2017-11-24)
DX: C33 Malignant neoplasm of trachea (principal); R65.20 Severe sepsis without septic shock; J69.0 Pneumonitis due to inhalation of food and vomit; J96.02 Acute respiratory failure with hypercapnia; E43 Unspecified severe protein-calorie malnutrition; G92 Toxic encephalopathy; A41.9 Sepsis, unspecified organism; J44.1 Chronic obstructive pulmonary disease with (acute) exacerbation; E87.2 Acidosis; J98.11 Atelectasis; I11.0 Hypertensive heart disease with heart failure; I50.9 Heart failure, unspecified; E11.9 Type 2 diabetes mellitus without complications; R49.0 Dysphonia; J98.8 Other specified respiratory disorders; Z87.891 Personal history of nicotine dependence; E78.5 Hyperlipidemia, unspecified; R55 Syncope and collapse; D69.6 Thrombocytopenia, unspecified; R68.0 Hypothermia, not associated with low environmental temperature

== ENCOUNTER 2018-01-15 01:20 | Inpatient (IN) | payer MEDICARE ==
--- NOTE | 2018-01-15 01:27 | C.PDOC ---
History Of Present Illness sent from [place] for low oxygen saturation. Pt with laryngeal ca and trached. Upon arrival, pt was suctioned and saturation increased to 95. Pt nods that he feels better Time Seen by Provider: 01/15/18 01:26 History Per: Other History/Exam Limitations: clinical condition, physical impairment (tached) Onset/Duration Of Symptoms: Hrs Current Symptoms Are (Timing): Still Present Initiating Event: Other (mucuous pug) Current Respiratory Medications: See Home Med List Severity: Moderate Pain Scale Rating Of: 4 Associated Symptoms: Fever. denies: Chills, Sweating, Productive Cough Reports Recently: Seen In ED, Treated By A Physician, Hospitalized Recent travel outside of the [place]: No Additional History Per: M[facility] Past Medical History Reviewed: Historical Data, Nursing Documentation, Vital Signs Vital Signs: Last Vital Signs Temp 98.6 F 01/15/18 02:36 Pulse 119 H 01/15/18 02:36 Resp 22 01/15/18 02:36 BP 109/69 01/15/18 02:36 Pulse Ox 94 L 01/15/18 03:13 - Medical History PMH: Asthma, CHF, COPD, HTN - [employer] Procedures ASSISTANCE WITH RESPIRATORY VENTILATION, <24 HRS, CPAP (11/24/16) DRAINAGE OF RIGHT PLEURAL CAVITY, PERC APPROACH, DIAGN (11/11/17) EXCISION OF LARYNX, ENDO, DIAGN (11/11/17) EXCISION OF SMALL INTESTINE, ENDO, DIAGN (11/11/17) INSERT INFUSION DEV IN R INT JUGULAR VEIN, PERC (11/24/16) INSERTION OF ENDOTRACHEAL AIRWAY INTO TRACHEA, VIA OPENING (11/11/17) INSERTION OF FEEDING DEVICE INTO STOMACH, PERC APPROACH (11/11/17) INSPECTION OF LARYNX, ENDO (11/11/17) RESPIRATORY VENTILATION, 24-96 CONSECUTIVE HOURS (11/11/17) RESPIRATORY VENTILATION, LESS THAN 24 CONSECUTIVE HOURS (11/24/16) Family History: States: No Known Family Hx - Social History Hx Alcohol Use: No Hx Substance Use: No - Immunization History Hx Tetanus Toxoid Vaccination: No Hx Influenza Vaccination: Yes (2015) Hx Pneumococcal Vaccination: No (NOT SURE) Review Of Systems Review Of Systems: ROS cannot be obtained secondary to pt's inabilty to answer questions. Physical Exam - Physical Exam Appears: Non-toxic Skin: Warm, Dry, Other (left hip sacral decub, both heel ulcers, ) Head: Normacephalic Eye(s): bilateral: Normal Inspection Oral Mucosa: Dry Neck: Supple, Other (trach in place) Chest: Symmetrical Cardiovascular: Rhythm Regular (tachy) Respiratory: No Rales, Rhonchi, No Wheezing Gastrointestinal/Abdominal: Soft, No Tenderness, No Distention Back: No CVA Tenderness Extremity: No Pedal Edema Pulses: Left Dorsalis Pedis: Normal, Right Dorsalis Pedis: Normal Neurological/Psych: Other Gait: Unable To Assess ED Course And Treatment - Laboratory Results Result Diagrams: 01/15/18 02:05 01/15/18 02:05 ECG: Interpreted By Me, Viewed By Me ECG Rhythm: Sinus Tachycardia (124), Nonspecific Changes O2 Sat by Pulse Oximetry: 94 Pulse Ox Interpretation: Normal - Radiology CXR: Interpreted by Me, Viewed By Me CXR Interpretation: Yes: Infiltrates (sam), Cardiomegaly, Other (trach in place) Progress Note: 3am spoke with dr west - icu- will come and evaluate the pt in the ed. pt is a co2 retainer. has been as high as 130's Critical Care Time - Critical Care Note Total Time (in mins): 55 Documented critical care: time excludes all time spent performing seperately billable procedures. Disposition Discussed With : Yvonne Denton Comment: accetped the pt on his service and took over the care at 3:55 AM Doctor Will See Patient In The: ED Counseled Patient/Family Regarding: Studies Performed, Diagnosis - Disposition Disposition: HOSPITALIZED Disposition Time: 01:27 Condition: GUARDED - POA Present On Arrival: Poor Glycemic Control, Pressure Ulcer - Clinical Impression Clinical Impression: Dyspnea, Pneumonia, Anemia, Laryngeal cancer, COPD exacerbation, CHF ( congestive heart failure) Decision To Admit - Pt Status Changed To: Hospital Disposition Of: Inpatient - Admit Certification Admit to Inpatient:: After my assessment, the patient will require hospitalization for at least two midnights. This is because of the severity of symptoms shown, intensity of services needed, and/or the medical risk in this patient being treated as an outpatient. - InPatient: Physician Admission Certification: I certify that this patient requires 2 or more midnights of care for the following reason:: After my assessment, the patient will require hospitalization for at least two midnights. This is because of the severity of symptoms shown, intensity of services needed, and/or the medical risk in this patient being treated as an outpatient. - . Bed Request Type: ICU Admitting Physician: Yvonne Denton Patient Diagnosis: Dyspnea, Pneumonia, Anemia, Laryngeal cancer, COPD exacerbation, CHF ( congestive heart failure)
[2018-01-15 01:28] VITALS: BMI 20.7
[2018-01-15 02:11] LABS: BASO % 0.2 % (0.0-2.0); HEMOGLOBIN 9.9 g/dL (12.0-18.0); LYMPH # 0.3 K/uL (1.0-4.3); LYMPH % 2.1 % (20.0-40.0); MEAN CELL VOLUME 95.7 fL (80.0-94.0); MEAN CORPUSCULAR HEMOGLOBIN 29.9 pg (27.0-31.0); MEAN CORPUSCULAR HGB CONC 31.3 g/dL (33.0-37.0); MEAN PLATELET VOLUME 8.7 fL (7.2-11.7); MONO # 0.6 K/uL (0.0-0.8); MONO % 4.4 % (0.0-10.0); NEUT # 12.9 K/uL (1.8-7.0); NEUT % 93.3 % (50.0-75.0); NRBC % 0.1 % (0.0-2.0); PLATELET COUNT 185 K/uL (130-400); RBC 3.32 Mil/uL (4.40-5.90); RED CELL DISTRIBUTION WIDTH 19.5 % (11.5-14.5); WHITE BLOOD COUNT 13.8 K/uL (4.8-10.8)
[2018-01-15 02:18] LABS: ABG ALLEN TEST POS; ARTERIAL BLOOD GAS HCO3 39.1 mmol/L (21-28); ARTERIAL BLOOD GAS O2 SAT 93.8 % (95-98); ARTERIAL BLOOD GAS PCO2 91 mm/Hg (35-45); ARTERIAL BLOOD GAS PH 7.34 (7.35-7.45); ARTERIAL BLOOD GAS PO2 68 mm/Hg (80-100); ARTERIAL BLOOD GAS TCO2 51.9 mmol/L (22-28)
[2018-01-15] MEDS ORDERED: Piperacillin/Tazobact 3.375 gm 100 ML IVPB STA (02:18)
[2018-01-15 02:23] LABS: INR 1.5; PROTHROMBIN TIME 16.7 SECONDS (9.7-12.2)
[2018-01-15] MEDS ORDERED: Vancomycin 1 GM 1 GM/250 ML BAG IVPB SCH (02:30)
[2018-01-15] MEDS ORDERED: Vitamins A & D Oint UD Foilpak ONE (02:30)
[2018-01-15] MEDS ORDERED: Piperacillin/Tazobact 3.375 gm 100 ML IVPB ONE (02:31)
[2018-01-15] MEDS ORDERED: Vancomycin 1 gm/NS 200 ml 1 GM/200 ML BAG IVPB STA (02:33)
[2018-01-15 02:44] LABS: LYMPHOCYTE 5 % (20-40); MONOCYTE 6 % (0-10); NEUTROPHIL 75 % (50-75); PLATELET ESTIMATE NORMAL (NORMAL); TOTAL CELLS COUNTED 100
[2018-01-15 02:45] LABS: ANISOCYTOSIS SLIGHT; POIKILOCYTOSIS SLIGHT
[2018-01-15 02:46] LABS: B-TYPE NATRIURETIC PEPTIDE 8080 pg/mL (0-900); BANDS 14 % (0-2)
[2018-01-15 02:52] LABS: ALB/GLOB RATIO 0.7 (1.0-2.1); ALBUMIN 2.8 g/dL (3.5-5.0); ALT/SGPT 30 U/L (21-72); AST/SGOT 32 U/L (17-59); BLOOD UREA NITROGEN 58 mg/dL (9-20); CALCIUM 7.9 mg/dl (8.6-10.4); GFR AFRICAN-AMERICAN > 60; GFR NON-AFRICAN AMERICAN > 60
[2018-01-15] MEDS ORDERED: Sodium Chloride 0.9% 1,000 ML IV ONE (03:08)
--- NOTE | 2018-01-15 04:35 | CP.PCM.CON ---
History of Present Illness - History of Present Illness History of Present Illness: CCM 72 yo black male with hx Laryngeal Ca /Trach /COPD/Asthma /HTN/ CHF sent from [place] b/o desaturation. Pt placed on O2 in ED and suctioned with improvement in sat. into 90's. No clear hx pain /nausea /sob.Pt is difficult to understand. ROS-as noted All- NKDA Social- NO tob/ etoh/ drugs Meds- reviewed FH- Unknown PE T-98.6 P-109 R-22 BP- 109/69 Awake, responsive, nad on trach collar Neck-+trach Lungs- bilat coarse bs Heart-rr abd- + PEG, bs+, soft, nontendere Ext- no edema, dressings intact Labs, EKG, [id number] A&P Acute on Chronic Hypoxic Hypercapneic Resp Failure Left PNA Dehydration Hx Laryngeal Ca s/p Trach /PEG COPD/Asthma Hx CHF Hx HTN Leg Ulcers Macrocytic Anemia Admit to ICU titrate supplemental O2 Maintain optimal lytes f/u ABG/labs May require vent support cont AB f/u cultures DVT & GI prophylaxis Past Patient History - Past Medical History & Family History Past Medical History?: Yes - Past Social History Smoking Status: Unknown If Ever Smoked - CARDIAC Hx Congestive Heart Failure: Yes Hx Hypertension: Yes - PULMONARY Hx Asthma: Yes Hx Chronic Obstructive Pulmonary Disease (COPD): Yes - NEUROLOGICAL Hx Neurological Disorder: Yes Hx Dizziness: Yes - ENDOCRINE/METABOLIC Hx Diabetes Mellitus Type 2: Yes - MUSCULOSKELETAL/RHEUMATOLOGICAL Hx Falls: Yes - GASTROINTESTINAL Hx Gastrointestinal Disorders: No - GENITOURINARY/GYNECOLOGICAL Hx Genitourinary Disorders: No - PSYCHIATRIC Hx Substance Use: No - SURGICAL HISTORY Hx Surgeries: No - ANESTHESIA Hx Anesthesia: No Meds Allergies/Adverse Reactions: Allergies Allergy/AdvReac Type Severity Reaction Status Date / Time No Known Allergies Allergy Verified 11/11/17 13:45 - Medications Medications: Current Medications Acetaminophen (Tylenol 325mg Tab) 650 mg PO Q4 PRN PRN Reason: Fever >100.4 F Heparin Sodium (Porcine) (Heparin) 5,000 units SC Q8 JUANA Piperacillin Sod/Tazobactam (Sod 3.375 gm/ Sodium Chloride) 100 mls @ 200 mls/ hr IVPB Q8H JUANA PRN Reason: Protocol Vancomycin HCl 1 gm/ Sodium (Chloride) 250 mls @ 166.7 mls/hr IVPB Q12H JUANA PRN Reason: Protocol Results - Vital Signs Recent Vital Signs: Last Vital Signs Temp 98.6 F 01/15/18 02:36 Pulse 106 H 01/15/18 04:09 Resp 17 01/15/18 04:09 BP 106/74 01/15/18 04:09 Pulse Ox 96 01/15/18 04:09 - Labs Result Diagrams: 01/15/18 02:05 01/15/18 02:05 Labs: Laboratory Results - last 24 hr 01/15/18 01/15/18 01/15/18 01:56 02:05 02:05 WBC 13.8 H D RBC 3.32 L Hgb 9.9 L Hct 31.8 L MCV 95.7 H D MCH 29.9 MCHC 31.3 L RDW 19.5 H Plt Count 185 MPV 8.7 Neut % (Auto) 93.3 H Lymph % (Auto) 2.1 L [place] % (Auto) 4.4 Eos % (Auto) 0.0 Baso % (Auto) 0.2 Neut # (Auto) 12.9 H Lymph # (Auto) 0.3 L [place] # (Auto) 0.6 Eos # (Auto) 0.0 Baso # (Auto) 0.0 Neutrophils % (Manual) 75 Band Neutrophils % 14 H* Lymphocytes % (Manual) 5 L Monocytes % (Manual) 6 Platelet Estimate Normal Poikilocytosis (manual Slight Basophilic Stippling Slight Anisocytosis (manual) Slight PT 16.7 H INR 1.5 APTT 37 H Puncture Site Rr pCO2 91 H* pO2 68 L HCO3 39.1 H ABG pH 7.34 L ABG Total CO2 51.9 H ABG O2 Saturation 93.8 L ABG Base Excess 18.4 H Suraj Test Pos ABG Potassium 4.5 A-a O2 Difference 317.0 Respiratory Index 4.7 Sodium 146.0 Chloride 103.0 Glucose 99 Lactate 1.7 Liter Flow 12.0 FiO2 70.0 Crit Value Called To Dr lane Crit Value Called By Sofía philip rt Crit Value Read Back Y Blood Gas Notified Time 218 Potassium Carbon Dioxide Anion Gap BUN Creatinine Est GFR ( Amer) Est GFR (Non-Af Amer) Random Glucose Calcium Magnesium Total Bilirubin AST ALT Alkaline Phosphatase Troponin I NT-Pro-B Natriuret Pep Total Protein Albumin Globulin Albumin/Globulin Ratio Arterial Blood Potassium 4.5 01/15/18 02:05 WBC RBC Hgb Hct MCV MCH MCHC RDW Plt Count MPV Neut % (Auto) Lymph % (Auto) [place] % (Auto) Eos % (Auto) Baso % (Auto) Neut # (Auto) Lymph # (Auto) [place] # (Auto) Eos # (Auto) Baso # (Auto) Neutrophils % (Manual) Band Neutrophils % Lymphocytes % (Manual) Monocytes % (Manual) Platelet Estimate Poikilocytosis (manual Basophilic Stippling Anisocytosis (manual) PT INR APTT Puncture Site pCO2 pO2 HCO3 ABG pH ABG Total CO2 ABG O2 Saturation ABG Base Excess Suraj Test ABG Potassium A-a O2 Difference Respiratory Index Sodium 147 Chloride 96 L Glucose Lactate Liter Flow FiO2 Crit Value Called To Crit Value Called By Crit Value Read Back Blood Gas Notified Time Potassium 4.4 Carbon Dioxide 41 H* Anion Gap 14 BUN 58 H Creatinine 0.6 L Est GFR ( Amer) > 60 Est GFR (Non-Af Amer) > 60 Random Glucose 112 H Calcium 7.9 L Magnesium 2.7 H Total Bilirubin 0.5 AST 32 ALT 30 Alkaline Phosphatase 91 Troponin I 0.0670 NT-Pro-B Natriuret Pep 8080 H Total Protein 6.8 Albumin 2.8 L D Globulin 4.0 H Albumin/Globulin Ratio 0.7 L Arterial Blood Potassium Assessment & Plan (1) Acute on chronic respiratory failure with hypoxia and hypercapnia Status: Acute (2) Pneumonia Status: Acute (3) Chr obstructive pulmonary disease w/ acute lower respiratory infxn Status: Acute (4) CHF (congestive heart failure) Status: Chronic (5) Laryngeal cancer Status: Chronic
[2018-01-15] MEDS ORDERED: Dextrose 5%/0.45% NS 1,000 ML IV SCH (04:45)
[2018-01-15] MEDS: Piperacillin/Tazobact 3.375 GM in Sodium Chloride 100 ML IVPB SCH ×3 (04:46→22:31)
[2018-01-15 07:52] LABS: ARTERIAL BLOOD GAS HCO3 32.7 mmol/L (21-28); ARTERIAL BLOOD GAS HEMOGLOBIN 15.5 g/dL (11.7-17.4); ARTERIAL BLOOD GAS O2 SAT 83.9 % (95-98); ARTERIAL BLOOD GAS PCO2 79 mm/Hg (35-45); ARTERIAL BLOOD GAS PH 7.32 (7.35-7.45); ARTERIAL BLOOD GAS PO2 52 mm/Hg (80-100); ARTERIAL BLOOD GAS TCO2 43.1 mmol/L (22-28)
--- NOTE | 2018-01-15 08:50 | RAD ---
Chest x-ray single frontal view History: Shortness of breath. Comparison: 11/28/2016 Findings: Tracheostomy tube in place. Dense consolidative opacifications seen within the left upper to mid lung zone suggestive for underlying infiltrate. Posttreatment followup is recommended to exclude underlying lesion. Hyperinflation suggestive for COPD and or emphysematous changes. Additional focal areas of nodular consolidation seen within the right upper and mid lung zone. Heart size within normal limits. Impression: Tracheostomy tube in place. Dense consolidative opacifications seen within the left upper to mid lung zone suggestive for underlying infiltrate. Posttreatment followup is recommended to exclude underlying lesion. Hyperinflation suggestive for COPD and or emphysematous changes. Additional focal areas of nodular consolidation seen within the right upper and mid lung zone.
--- NOTE | 2018-01-15 11:13 | CP.CCUPN ---
CCU Subjective - Physician Review Subjective (Free Text): 01/15/18 11:12 Patient seen and examined at bedside. Per nursing no acute events occurred overnight. Critical Care Time Spent (in minutes): 45 CCU Objective - Vital Signs / Intake & Output Vital Signs (Last 4 hours): Vital Signs Temp Pulse Resp BP Pulse Ox 01/15/18 09:29 96 H 15 113/74 93 L 01/15/18 09:00 95 H 15 96 01/15/18 08:28 96 H 15 105/66 96 01/15/18 08:00 97.4 F L 94 L 01/15/18 07:50 96 H 17 01/15/18 07:30 95 H Intake and Output (Last 8hrs): Intake & Output 01/14/18 01/15/18 01/15/18 22:59 06:59 14:59 Intake Total 150 150 Output Total 0 0 Balance 150 150 Weight 90 lb 4.8 oz Intake: Intake, IV Amount 150 150 left AC 150 150 Oral 0 0 Output: Urine 0 0 Urine, Voided 0 0 Other: # Bowel Movements 0 0 - Physical Exam Head: Positive for: Atraumatic, Normocephalic Pupils: Positive for: PERRL Extroacular Muscles: Positive for: EOMI Conjunctiva: Positive for: Normal Mouth: Positive for: Moist Mucous Membranes Neck: Positive for: Other (trach in place) Cardiovascular: Positive for: Regular Rate and Rhythm, Normal S1, S2 Abdomen: Positive for: Normal Bowel Sounds Upper Extremity: Negative for: Cyanosis Neurological: Positive for: Speech Normal Skin: Positive for: Dry, Normal Color - Medications Active Medications: Active Medications Generic Name Dose Route Start Last Admin Trade Name Freq PRN Reason Stop Dose Admin Acetaminophen 650 mg 01/15/18 04:15 Tylenol 325mg Tab PO Q4 PRN Fever >100.4 F Heparin Sodium (Porcine) 5,000 units 01/15/18 06:00 01/15/18 07:23 Heparin SC 5,000 units Q8 JUANA Administration Piperacillin Sod/Tazobactam 100 mls @ 200 mls/hr 01/15/18 04:30 01/15/18 04: 46 Sod 3.375 gm/ Sodium Chloride IVPB Not Given Q8H JUANA Protocol Vancomycin/Sodium Chloride 1 gm in 200 mls @ 166.7 mls/hr 01/15/18 15:00 Vancomycin 1 Gm/Ns 200 Ml IVPB 01/20/18 15:01 Q12H JUANA Protocol Sodium Chloride 1,000 mls @ 150 mls/hr 01/15/18 11:00 Sodium Chloride 0.9% IV .[id number] [facility] Pantoprazole Sodium 40 mg 01/15/18 11:00 Protonix Inj IVP DAILY JUANA - Patient Studies Lab Studies: Lab Studies 01/15/18 01/15/18 01/15/18 Range/Units 07:05 02:05 02:05 WBC (4.8-10.8) K/uL RBC (4.40-5.90) Mil/uL Hgb (12.0-18.0) g/dL Hct (35.0-51.0) % MCV (80.0-94.0) fL MCH (27.0-31.0) pg MCHC (33.0-37.0) g/dL RDW (11.5-14.5) % Plt Count (130-400) K/uL MPV (7.2-11.7) fL Neut % (Auto) (50.0-75.0) % Lymph % (Auto) (20.0-40.0) % [place] % (Auto) (0.0-10.0) % Eos % (Auto) (0.0-4.0) % Baso % (Auto) (0.0-2.0) % Neut # (Auto) (1.8-7.0) K/uL Lymph # (Auto) (1.0-4.3) K/uL [place] # (Auto) (0.0-0.8) K/uL Eos # (Auto) (0.0-0.7) K/uL Baso # (Auto) (0.0-0.2) K/uL Neutrophils % (Manual) (50-75) % Band Neutrophils % (0-2) % Lymphocytes % (Manual) (20-40) % Monocytes % (Manual) (0-10) % Platelet Estimate (NORMAL) Poikilocytosis (manual Basophilic Stippling Anisocytosis (manual) PT 16.7 H (9.7-12.2) SECONDS INR 1.5 APTT 37 H (21-34) SECONDS Puncture Site Lf pCO2 79 H* (35-45) mm/Hg pO2 52 L (80-100) mm/Hg HCO3 32.7 H (21-28) mmol/L ABG pH 7.32 L (7.35-7.45) ABG Total CO2 43.1 H (22-28) mmol/L ABG O2 Saturation 83.9 L (95-98) % ABG Base Excess 10.6 H (-2.0-3.0) mmol/L ABG Hemoglobin 15.5 (11.7-17.4) g/dL ABG Carboxyhemoglobin 2.7 H (0.5-1.5) % POC ABG HHb (Measured) 15.6 H (0.0-5.0) % ABG Methemoglobin 0.5 (0.0-3.0) % Suraj Test Na ABG Potassium (3.6-5.2) mmol/L A-a O2 Difference 99.0 mm/Hg Respiratory Index 1.9 Hgb O2 Saturation 81.2 L (95.0-98.0) % Sodium 147 (132-148) mmol/l Chloride 96 L (98-107) mmol/L Glucose (75-110) mg/dl Lactate (0.7-2.1) mmol/L Liter Flow FiO2 35.0 % Crit Value Called To Dr varela Crit Value Called By Monroe travis [facility] Crit Value Read Back Y Blood Gas Notified Time 725 Potassium 4.4 (3.6-5.2) mmol/L Carbon Dioxide 41 H* (22-30) mmol/L Anion Gap 14 (10-20) BUN 58 H (9-20) mg/dL Creatinine 0.6 L (0.8-1.5) mg/dL Est GFR ( Amer) > 60 Est GFR (Non-Af Amer) > 60 Random Glucose 112 H (75-110) mg/dL Calcium 7.9 L (8.6-10.4) mg/dl Magnesium 2.7 H (1.6-2.3) mg/dL Total Bilirubin 0.5 (0.2-1.3) mg/dL AST 32 (17-59) U/L ALT 30 (21-72) U/L Alkaline Phosphatase 91 (38-126) U/L Troponin I 0.0670 (0.00-0.120) ng/mL NT-Pro-B Natriuret Pep 8080 H (0-900) pg/mL Total Protein 6.8 (6.3-8.3) g/dL Albumin 2.8 L D (3.5-5.0) g/dL Globulin 4.0 H (2.2-3.9) gm/dL Albumin/Globulin Ratio 0.7 L (1.0-2.1) Arterial Blood Potassium (3.6-5.2) mmol/L 01/15/18 01/15/18 Range/Units 02:05 01:56 WBC 13.8 H D (4.8-10.8) K/uL RBC 3.32 L (4.40-5.90) Mil/uL Hgb 9.9 L (12.0-18.0) g/dL Hct 31.8 L (35.0-51.0) % MCV 95.7 H D (80.0-94.0) fL MCH 29.9 (27.0-31.0) pg MCHC 31.3 L (33.0-37.0) g/dL RDW 19.5 H (11.5-14.5) % Plt Count 185 (130-400) K/uL MPV 8.7 (7.2-11.7) fL Neut % (Auto) 93.3 H (50.0-75.0) % Lymph % (Auto) 2.1 L (20.0-40.0) % [place] % (Auto) 4.4 (0.0-10.0) % Eos % (Auto) 0.0 (0.0-4.0) % Baso % (Auto) 0.2 (0.0-2.0) % Neut # (Auto) 12.9 H (1.8-7.0) K/uL Lymph # (Auto) 0.3 L (1.0-4.3) K/uL [place] # (Auto) 0.6 (0.0-0.8) K/uL Eos # (Auto) 0.0 (0.0-0.7) K/uL Baso # (Auto) 0.0 (0.0-0.2) K/uL Neutrophils % (Manual) 75 (50-75) % Band Neutrophils % 14 H* (0-2) % Lymphocytes % (Manual) 5 L (20-40) % Monocytes % (Manual) 6 (0-10) % Platelet Estimate Normal (NORMAL) Poikilocytosis (manual Slight Basophilic Stippling Slight Anisocytosis (manual) Slight PT (9.7-12.2) SECONDS INR APTT (21-34) SECONDS Puncture Site Rr pCO2 91 H* (35-45) mm/Hg pO2 68 L (80-100) mm/Hg HCO3 39.1 H (21-28) mmol/L ABG pH 7.34 L (7.35-7.45) ABG Total CO2 51.9 H (22-28) mmol/L ABG O2 Saturation 93.8 L (95-98) % ABG Base Excess 18.4 H (-2.0-3.0) mmol/L ABG Hemoglobin (11.7-17.4) g/dL ABG Carboxyhemoglobin (0.5-1.5) % POC ABG HHb (Measured) (0.0-5.0) % ABG Methemoglobin (0.0-3.0) % Suraj Test Pos ABG Potassium 4.5 (3.6-5.2) mmol/L A-a O2 Difference 317.0 mm/Hg Respiratory Index 4.7 Hgb O2 Saturation (95.0-98.0) % Sodium 146.0 (132-148) mmol/l Chloride 103.0 (98-107) mmol/L Glucose 99 (75-110) mg/dl Lactate 1.7 (0.7-2.1) mmol/L Liter Flow 12.0 FiO2 70.0 % Crit Value Called To Dr lane Crit Value Called By Sofía philip rt Crit Value Read Back Y Blood Gas Notified Time 218 Potassium (3.6-5.2) mmol/L Carbon Dioxide (22-30) mmol/L Anion Gap (10-20) BUN (9-20) mg/dL Creatinine (0.8-1.5) mg/dL Est GFR ( Amer) Est GFR (Non-Af Amer) Random Glucose (75-110) mg/dL Calcium (8.6-10.4) mg/dl Magnesium (1.6-2.3) mg/dL Total Bilirubin (0.2-1.3) mg/dL AST (17-59) U/L ALT (21-72) U/L Alkaline Phosphatase (38-126) U/L Troponin I (0.00-0.120) ng/mL NT-Pro-B Natriuret Pep (0-900) pg/mL Total Protein (6.3-8.3) g/dL Albumin (3.5-5.0) g/dL Globulin (2.2-3.9) gm/dL Albumin/Globulin Ratio (1.0-2.1) Arterial Blood Potassium 4.5 (3.6-5.2) mmol/L Laboratory Results - last 24 hr 01/15/18 01/15/18 01/15/18 01:56 02:05 02:05 WBC 13.8 H D RBC 3.32 L Hgb 9.9 L Hct 31.8 L MCV 95.7 H D MCH 29.9 MCHC 31.3 L RDW 19.5 H Plt Count 185 MPV 8.7 Neut % (Auto) 93.3 H Lymph % (Auto) 2.1 L [place] % (Auto) 4.4 Eos % (Auto) 0.0 Baso % (Auto) 0.2 Neut # (Auto) 12.9 H Lymph # (Auto) 0.3 L [place] # (Auto) 0.6 Eos # (Auto) 0.0 Baso # (Auto) 0.0 Neutrophils % (Manual) 75 Band Neutrophils % 14 H* Lymphocytes % (Manual) 5 L Monocytes % (Manual) 6 Platelet Estimate Normal Poikilocytosis (manual Slight Basophilic Stippling Slight Anisocytosis (manual) Slight PT 16.7 H INR 1.5 APTT 37 H Puncture Site Rr pCO2 91 H* pO2 68 L HCO3 39.1 H ABG pH 7.34 L ABG Total CO2 51.9 H ABG O2 Saturation 93.8 L ABG Base Excess 18.4 H ABG Hemoglobin ABG Carboxyhemoglobin POC ABG HHb (Measured) ABG Methemoglobin Suraj Test Pos ABG Potassium 4.5 A-a O2 Difference 317.0 Respiratory Index 4.7 Hgb O2 Saturation Sodium 146.0 Chloride 103.0 Glucose 99 Lactate 1.7 Liter Flow 12.0 FiO2 70.0 Crit Value Called To Dr lane Crit Value Called By Sofía philip rt Crit Value Read Back Y Blood Gas Notified Time 218 Potassium Carbon Dioxide Anion Gap BUN Creatinine Est GFR ( Amer) Est GFR (Non-Af Amer) Random Glucose Calcium Magnesium Total Bilirubin AST ALT Alkaline Phosphatase Troponin I NT-Pro-B Natriuret Pep Total Protein Albumin Globulin Albumin/Globulin Ratio Arterial Blood Potassium 4.5 01/15/18 01/15/18 02:05 07:05 WBC RBC Hgb Hct MCV MCH MCHC RDW Plt Count MPV Neut % (Auto) Lymph % (Auto) [place] % (Auto) Eos % (Auto) Baso % (Auto) Neut # (Auto) Lymph # (Auto) [place] # (Auto) Eos # (Auto) Baso # (Auto) Neutrophils % (Manual) Band Neutrophils % Lymphocytes % (Manual) Monocytes % (Manual) Platelet Estimate Poikilocytosis (manual Basophilic Stippling Anisocytosis (manual) PT INR APTT Puncture Site Lf pCO2 79 H* pO2 52 L HCO3 32.7 H ABG pH 7.32 L ABG Total CO2 43.1 H ABG O2 Saturation 83.9 L ABG Base Excess 10.6 H ABG Hemoglobin 15.5 ABG Carboxyhemoglobin 2.7 H POC ABG HHb (Measured) 15.6 H ABG Methemoglobin 0.5 Suraj Test Na ABG Potassium A-a O2 Difference 99.0 Respiratory Index 1.9 Hgb O2 Saturation 81.2 L Sodium 147 Chloride 96 L Glucose Lactate Liter Flow FiO2 35.0 Crit Value Called To Dr varela Crit Value Called By Monroe travis certified personal finance counselor Crit Value Read Back Y Blood Gas Notified Time 725 Potassium 4.4 Carbon Dioxide 41 H* Anion Gap 14 BUN 58 H Creatinine 0.6 L Est GFR ( Amer) > 60 Est GFR (Non-Af Amer) > 60 Random Glucose 112 H Calcium 7.9 L Magnesium 2.7 H Total Bilirubin 0.5 AST 32 ALT 30 Alkaline Phosphatase 91 Troponin I 0.0670 NT-Pro-B Natriuret Pep 8080 H Total Protein 6.8 Albumin 2.8 L D Globulin 4.0 H Albumin/Globulin Ratio 0.7 L Arterial Blood Potassium EKG/Cardiology Studies: Cardiology / EKG Studies 01/15/18 01:28 ELECTROCARDIOGRAM Stat Comment: Mode Of Transportation: BED Reason For Exam: SOB Review of Systems - Review of Systems Systems not reviewed;Unavailable: Acuity of Condition Assessment/Plan - Assessment and Plan (Free Text) Assessment: 72 year old male with a past medical history of laryngeal cancer, asthma, chf, copd, hypertension, Type 2 diabetes mellitus, s/p peg and trach. Patient was [facility] Plan: Pulmonary: COPD exacerbation, Pneumonia chest xray: dense consolidative opacifications seen within the left upper to mid lung zone suggestive for underlying infiltrate, hyperinflation suggestive for COPD and or emphysematous changes Chest ct:progressive consolidation noted throughout the left dre thorax predominantly within the left upper lobe, additional patchy multifocal nodular infiltrates noted bilaterally. 16mm right upper lobe and 14mm left upper lobe cavitary lesion/consolidations. cavitary malignant neoplasm vs. infection. Continue Vancomycin 1gm Q12 Continue Zosyn 3.375gm Q8 Duonebs 3ml INH Q4. FIO2:35% PPX -Protonix 40mg Daily -Heparin 5000 units SC Q8. -IVF fluids NS @150mls/hr
[2018-01-15] MEDS: Sodium Chloride 0.9% 1,000 ML IV SCH ×3 (11:23→20:23)
[2018-01-15 12:00] LABS: SQUAMOUS EPITHIAL < 1 /hpf (0-5); URINE BACTERIA RARE (<OCC); URINE BILIRUBIN NEGATIVE (NEGATIVE); URINE BLOOD NEGATIVE (NEGATIVE); URINE CLARITY Hazy (Clear); URINE COLOR Yellow (YELLOW); URINE GLUCOSE (UA) NORMAL (Normal); URINE LEUKOCYTE ESTERASE NEG Leu/uL (Negative); URINE PROTEIN NEGATIVE (NEGATIVE)
[2018-01-15 13:17] LABS: ARTERIAL BLOOD GAS HCO3 37.8 mmol/L (21-28); ARTERIAL BLOOD GAS O2 SAT 91.8 % (95-98); ARTERIAL BLOOD GAS PCO2 85 mm/Hg (35-45); ARTERIAL BLOOD GAS PH 7.35 (7.35-7.45); ARTERIAL BLOOD GAS PO2 62 mm/Hg (80-100); ARTERIAL BLOOD GAS TCO2 49.5 mmol/L (22-28)
[2018-01-15] MEDS: Vancomycin 1 gm/NS 200 ml 1 GM/200 ML BAG IVPB SCH (14:10)
--- NOTE | 2018-01-15 14:15 | CT ---
CT chest without IV contrast Indication: Shortness of breath Technique: Contiguous axial images were obtained through the chest without intravenous contrast enhancement. Sagittal and coronal reconstructions were generated and reviewed. This CT exam was performed using 1 or more of the following dose reduction techniques: Automated exposure control, adjustment of the MAA and/or kV according to patient size, and/or use of iterative reconstruction technique. Radiation dose (DLP): 237.47 MGy-cm. Comparison: Chest x-ray performed 01/15/18, CTA chest performed 11/17/17 Findings: Limited study. Patient unable to elevate arms for the examination. Cachectic patient. Tracheostomy tube. The noncontrast mediastinal and hilar vascular structures are not well visualized. Cardiomegaly. Hyperinflation may be seen in setting of COPD. Emphysematous changes. Progressive consolidation noted throughout the left dre thorax predominantly within the left upper lobe. Additional patchy infiltrates noted bilaterally. 16 mm right upper lobe and 14 mm left upper lobe cavitary lesion/consolidations. No pleural effusion. No pneumothorax. Generalized anasarca. Limited visualized noncontrast upper abdomen is not adequately evaluated due to paucity of intra-abdominal fat lack of oral or IV contrast. Peg tube. Degenerative changes of the spine. Impression: Markedly limited study. Tracheostomy tube. Peg tube. Progressive consolidation noted throughout the left dre thorax predominantly within the left upper lobe. Additional patchy multifocal nodular infiltrates noted bilaterally. 16 mm right upper lobe and 14 mm left upper lobe cavitary lesion/consolidations. Considerations include cavitary malignant neoplasm versus infection (such as tuberculosis or fungal infection). COPD/emphysema. Generalized anasarca.
[2018-01-15] MEDS: Albuterol-Ipratrop 3 mg / 0.5 (3 ml) UD INH SCH ×2 (16:06→19:44)
--- NOTE | 2018-01-15 19:47 | CP.PCM.HP ---
Present on Admission - Present on Admission Any Indicators Present on Admission: No Past Patient History - Past Medical History & Family History Past Medical History?: Yes - Past Social History Smoking Status: Unknown If Ever Smoked - CARDIAC Hx Congestive Heart Failure: Yes Hx Hypertension: Yes - PULMONARY Hx Asthma: Yes Hx Chronic Obstructive Pulmonary Disease (COPD): Yes - NEUROLOGICAL Hx Neurological Disorder: Yes Hx Dizziness: Yes - HEENT Hx HEENT Problems: No - RENAL Hx Chronic Kidney Disease: No - ENDOCRINE/METABOLIC Hx Diabetes Mellitus Type 2: Yes - HEMATOLOGICAL/ONCOLOGICAL Hx Blood Disorders: No - INTEGUMENTARY Hx Dermatological Problems: No - MUSCULOSKELETAL/RHEUMATOLOGICAL Hx Falls: Yes - GASTROINTESTINAL Hx Gastrointestinal Disorders: No - GENITOURINARY/GYNECOLOGICAL Hx Genitourinary Disorders: No - PSYCHIATRIC Hx Substance Use: No - SURGICAL HISTORY Hx Surgeries: No - ANESTHESIA Hx Anesthesia: No Meds Allergies/Adverse Reactions: Allergies Allergy/AdvReac Type Severity Reaction Status Date / Time No Known Allergies Allergy Verified 11/11/17 13:45 Results - Vital Signs Recent Vital Signs: Last Vital Signs Temp 97.6 F 01/15/18 16:00 Pulse 99 H 01/15/18 17:00 Resp 19 01/15/18 17:00 BP 118/55 L 01/15/18 16:29 Pulse Ox 92 L 01/15/18 17:00 - Labs Result Diagrams: 01/15/18 02:05 01/15/18 02:05 Labs: Laboratory Results - last 24 hr 01/15/18 01/15/18 01/15/18 01:56 02:05 02:05 WBC 13.8 H D RBC 3.32 L Hgb 9.9 L Hct 31.8 L MCV 95.7 H D MCH 29.9 MCHC 31.3 L RDW 19.5 H Plt Count 185 MPV 8.7 Neut % (Auto) 93.3 H Lymph % (Auto) 2.1 L [place] % (Auto) 4.4 Eos % (Auto) 0.0 Baso % (Auto) 0.2 Neut # (Auto) 12.9 H Lymph # (Auto) 0.3 L [place] # (Auto) 0.6 Eos # (Auto) 0.0 Baso # (Auto) 0.0 Neutrophils % (Manual) 75 Band Neutrophils % 14 H* Lymphocytes % (Manual) 5 L Monocytes % (Manual) 6 Platelet Estimate Normal Poikilocytosis (manual Slight Basophilic Stippling Slight Anisocytosis (manual) Slight PT 16.7 H INR 1.5 APTT 37 H Puncture Site Rr pCO2 91 H* pO2 68 L HCO3 39.1 H ABG pH 7.34 L ABG Total CO2 51.9 H ABG O2 Saturation 93.8 L ABG Base Excess 18.4 H ABG Hemoglobin ABG Carboxyhemoglobin POC ABG HHb (Measured) ABG Methemoglobin Suraj Test Pos ABG Potassium 4.5 A-a O2 Difference 317.0 Respiratory Index 4.7 Hgb O2 Saturation Sodium 146.0 Chloride 103.0 Glucose 99 Lactate 1.7 Liter Flow 12.0 FiO2 70.0 Crit Value Called To Dr lane Crit Value Called By Sofía philip rt Crit Value Read Back Y Blood Gas Notified Time 218 Potassium Carbon Dioxide Anion Gap BUN Creatinine Est GFR ( Amer) Est GFR (Non-Af Amer) Random Glucose Calcium Magnesium Total Bilirubin AST ALT Alkaline Phosphatase Troponin I NT-Pro-B Natriuret Pep Total Protein Albumin Globulin Albumin/Globulin Ratio Arterial Blood Potassium 4.5 Urine Color Urine Clarity Urine pH Ur Specific [place] Urine Protein Urine Glucose (UA) Urine Ketones Urine Blood Urine Nitrate Urine Bilirubin Urine Urobilinogen Ur Leukocyte Esterase Urine WBC (Auto) Urine RBC (Auto) Ur Squamous Epith Cells Urine Bacteria Hyaline Casts 01/15/18 01/15/18 01/15/18 02:05 07:05 11:45 WBC RBC Hgb Hct MCV MCH MCHC RDW Plt Count MPV Neut % (Auto) Lymph % (Auto) [place] % (Auto) Eos % (Auto) Baso % (Auto) Neut # (Auto) Lymph # (Auto) [place] # (Auto) Eos # (Auto) Baso # (Auto) Neutrophils % (Manual) Band Neutrophils % Lymphocytes % (Manual) Monocytes % (Manual) Platelet Estimate Poikilocytosis (manual Basophilic Stippling Anisocytosis (manual) PT INR APTT Puncture Site Lf pCO2 79 H* pO2 52 L HCO3 32.7 H ABG pH 7.32 L ABG Total CO2 43.1 H ABG O2 Saturation 83.9 L ABG Base Excess 10.6 H ABG Hemoglobin 15.5 ABG Carboxyhemoglobin 2.7 H POC ABG HHb (Measured) 15.6 H ABG Methemoglobin 0.5 Suraj Test Na ABG Potassium A-a O2 Difference 99.0 Respiratory Index 1.9 Hgb O2 Saturation 81.2 L Sodium 147 Chloride 96 L Glucose Lactate Liter Flow FiO2 35.0 Crit Value Called To Dr varela Crit Value Called By Monroe travis optics technical officer Crit Value Read Back Y Blood Gas Notified Time 725 Potassium 4.4 Carbon Dioxide 41 H* Anion Gap 14 BUN 58 H Creatinine 0.6 L Est GFR ( Amer) > 60 Est GFR (Non-Af Amer) > 60 Random Glucose 112 H Calcium 7.9 L Magnesium 2.7 H Total Bilirubin 0.5 AST 32 ALT 30 Alkaline Phosphatase 91 Troponin I 0.0670 NT-Pro-B Natriuret Pep 8080 H Total Protein 6.8 Albumin 2.8 L D Globulin 4.0 H Albumin/Globulin Ratio 0.7 L Arterial Blood Potassium Urine Color Yellow Urine Clarity Hazy Urine pH 5.0 Ur Specific [place] 1.024 Urine Protein Negative Urine Glucose (UA) Normal Urine Ketones Negative Urine Blood Negative Urine Nitrate Negative Urine Bilirubin Negative Urine Urobilinogen 4.0 Ur Leukocyte Esterase Neg Urine WBC (Auto) 4 Urine RBC (Auto) 3 Ur Squamous Epith Cells < 1 Urine Bacteria Rare Hyaline Casts 3-5 H 01/15/18 13:10 WBC RBC Hgb Hct MCV MCH MCHC RDW Plt Count MPV Neut % (Auto) Lymph % (Auto) [place] % (Auto) Eos % (Auto) Baso % (Auto) Neut # (Auto) Lymph # (Auto) [place] # (Auto) Eos # (Auto) Baso # (Auto) Neutrophils % (Manual) Band Neutrophils % Lymphocytes % (Manual) Monocytes % (Manual) Platelet Estimate Poikilocytosis (manual Basophilic Stippling Anisocytosis (manual) PT INR APTT Puncture Site L/f pCO2 85 H* pO2 62 L HCO3 37.8 H ABG pH 7.35 ABG Total CO2 49.5 H ABG O2 Saturation 91.8 L ABG Base Excess 16.8 H ABG Hemoglobin ABG Carboxyhemoglobin POC ABG HHb (Measured) ABG Methemoglobin Suraj Test Na ABG Potassium 4.0 A-a O2 Difference 117.0 Respiratory Index 1.9 Hgb O2 Saturation Sodium 144.0 Chloride 106.0 Glucose 108 Lactate 0.8 Liter Flow FiO2 40.0 Crit Value Called To Dr naturijan Crit Value Called By Monroe travis optics technical officer Crit Value Read Back Y Blood Gas Notified Time 1320 Potassium Carbon Dioxide Anion Gap BUN Creatinine Est GFR ( Amer) Est GFR (Non-Af Amer) Random Glucose Calcium Magnesium Total Bilirubin AST ALT Alkaline Phosphatase Troponin I NT-Pro-B Natriuret Pep Total Protein Albumin Globulin Albumin/Globulin Ratio Arterial Blood Potassium 4.0 Urine Color Urine Clarity Urine pH Ur Specific [place] Urine Protein Urine Glucose (UA) Urine Ketones Urine Blood Urine Nitrate Urine Bilirubin Urine Urobilinogen Ur Leukocyte Esterase Urine WBC (Auto) Urine RBC (Auto) Ur Squamous Epith Cells Urine Bacteria Hyaline Casts
--- NOTE | 2018-01-15 22:54 | CARD ---
APPROVED REPORT EKG Measurement Heart [id number] CT [id number] <Conclusion> Sinus tachycardia Possible Left atrial enlargement T wave abnormality, consider inferior ischemia Abnormal ECG
[2018-01-15] MEDS ORDERED: Acetaminophen 650mg/20.3ml solution UD GT PRN (23:07)
[2018-01-16] MEDS: Albuterol-Ipratrop 3 mg / 0.5 (3 ml) UD INH SCH ×7 (00:06→23:52)
[2018-01-16] MEDS ORDERED: Albuterol-Ipratrop 3 mg / 0.5 (3 ml) UD INH SCH (02:00)
[2018-01-16] MEDS: Vancomycin 1 gm/NS 200 ml 1 GM/200 ML BAG IVPB SCH ×2 (03:17→14:58)
[2018-01-16 04:25] LABS: BASO % 0.3 % (0.0-2.0); EOS % 0.4 % (0.0-4.0); HEMOGLOBIN 8.2 g/dL (12.0-18.0); LYMPH # 1.2 K/uL (1.0-4.3); LYMPH % 19.4 % (20.0-40.0); MEAN CELL VOLUME 95.4 fL (80.0-94.0); MEAN CORPUSCULAR HEMOGLOBIN 29.7 pg (27.0-31.0); MEAN CORPUSCULAR HGB CONC 31.2 g/dL (33.0-37.0); MEAN PLATELET VOLUME 8.7 fL (7.2-11.7); MONO # 0.3 K/uL (0.0-0.8); MONO % 5.6 % (0.0-10.0); NEUT # 4.4 K/uL (1.8-7.0); NEUT % 74.3 % (50.0-75.0); NRBC % 0.3 % (0.0-2.0); RBC 2.74 Mil/uL (4.40-5.90)
[2018-01-16 04:38] LABS: ABG ALLEN TEST POS; ARTERIAL BLOOD GAS HCO3 37.8 mmol/L (21-28); ARTERIAL BLOOD GAS O2 SAT 95.1 % (95-98); ARTERIAL BLOOD GAS PCO2 52 mm/Hg (35-45); ARTERIAL BLOOD GAS PH 7.51 (7.35-7.45); ARTERIAL BLOOD GAS PO2 63 mm/Hg (80-100); ARTERIAL BLOOD GAS TCO2 43.1 mmol/L (22-28)
[2018-01-16] MEDS: Piperacillin/Tazobact 3.375 GM in Sodium Chloride 100 ML IVPB SCH ×3 (05:08→20:35)
[2018-01-16 05:09] LABS: ALB/GLOB RATIO 0.6 (1.0-2.1); ALBUMIN 2.2 g/dL (3.5-5.0); ALT/SGPT 24 U/L (21-72); AST/SGOT 25 U/L (17-59); BLOOD UREA NITROGEN 31 mg/dL (9-20); CALCIUM 7.7 mg/dl (8.6-10.4); GFR AFRICAN-AMERICAN > 60; GFR NON-AFRICAN AMERICAN > 60
[2018-01-16] MEDS: Sodium Chloride 0.9% 1,000 ML IV SCH ×2 (05:10→08:09)
--- NOTE | 2018-01-16 08:27 | RAD ---
PROCEDURE: CHEST RADIOGRAPH, 1 VIEW HISTORY: f/u COMPARISON: 01/15/2018 FINDINGS: The tracheostomy tube remains in stable position. LUNGS: There is no significant interval change in dense consolidation in the left upper lobe. There is also patchy consolidation in the right lung predominantly in the right upper lobe. Background of COPD. PLEURA: No pneumothorax or pleural fluid seen. CARDIOVASCULAR: Normal. OSSEOUS STRUCTURES: No significant abnormalities. VISUALIZED UPPER ABDOMEN: Normal. OTHER FINDINGS: None. IMPRESSION: No change in multifocal consolidation, dense and extensive in the left upper lobe superimposed on a background of COPD.
[2018-01-16] MEDS: Multiple Vitamins Oral Solution PO SCH (09:54)
[2018-01-16] MEDS: Collagenase 250 Units/gm Ointment(30 gm) TOP SCH (09:55)
--- NOTE | 2018-01-16 11:58 | CP.PCM.CON ---
History of Present Illness - History of Present Illness History of Present Illness: 72 yo black male with hx Laryngeal Ca /Trach /COPD/Asthma /HTN/ CHF sent from [place] b/o desaturation. Pt placed on O2 in ED and suctioned with improvement in sat. into 90's. No clear hx pain /nausea /sob The CAT scan of the chest was significant for mets versus TB versus fungal infection. Infectious disease on board. Zosyn and Vanco IV on board. Patient admitted to ICU for further care. WBC 5.5, hemoglobin 7.9 down from 8.2, abnormal ABGs, K2.9 and is being replaced , albumin 2.4. The sputum cultures and sensitivities positive for Pseudomonas. Past medical history, laryngeal CA, tracheostomy, PEG, CHF, COPD, asthma Social history, senior living long-term resident, , denies having family members, friend Ghulam Dickson is a contact center specialist but his phone number is not working Family history, denies Review of Systems - Constitutional Constitutional: Weakness - EENT Eyes: absent: As Per HPI, Blind Spots, Blurred Vision, Change in Vision, Decreased Night Vision, Diplopia, Discharge, Dry Eye, Exophthalmos, Floaters, Irritation, Itchy Eyes, Loss of Peripheral Vision, Pain, Photophobia, Requires Corrective Lenses, Sees Flashes, Spots in Vision, Tunnel Vision, Other Visual Disturbances, Loss of Vision, Other Ears: absent: As Per HPI, Decreased Hearing, Ear Discharge, Ear Pain, Tinnitus, Abnormal Hearing, Disequilibrium, Dizziness, Other Nose/Mouth/Throat: Change in Voice, Dysphagia Additional comments: Tracheostomy - Cardiovascular Cardiovascular: Dyspnea on Exertion - Respiratory Respiratory: Dyspnea on Exertion, Chest Congestion - Gastrointestinal Gastrointestinal: Dysphagia Additional comments: PEG - Genitourinary Genitourinary: Urinary Incontinence - Musculoskeletal Musculoskeletal: Atrophy, Deformity, Joint Swelling, Limited Range of Motion, Muscle Weakness, Stiffness - Integumentary Integumentary: Change in Nails, Dry Skin, Sores, Wounds - Neurological Neurological: Focal Weakness - Psychiatric Psychiatric: absent: As Per HPI, Abnormal Sleep Pattern, Anhedonia, Anxiety, Auditory Hallucinations, Behavioral Changes, Change in Appetite, Change in Libido, Confusion, Depression, Difficulty Concentrating, Hallucinations, Homicidal Ideation, Hopelessness, Irritability, Memory Loss, Mood Swings, Panic Attacks, Paranoia, Suicidal Ideation, Visual Hallucinations, Tactile Hallucinations, Other - Endocrine Endocrine: absent: As Per HPI, Change in Body Appearance, Change in Libido, Cold Intolorance, Deepening of Voice, Excessive Sweating, Fatigue, Flushing, Heat Intolorance, Increase in Ring/Shoe/Hat Size, Palpitations, Polydipsia, Polyphagia, Polyuria, Other - Hematologic/Lymphatic Hematologic: absent: As Per HPI, Easy Bleeding, Easy Bruising, Lymphadenopathy, Other Past Patient History - Past Medical History & Family History Past Medical History?: Yes - Past Social History Smoking Status: Unknown If Ever Smoked - CARDIAC Hx Congestive Heart Failure: Yes Hx Hypertension: Yes - PULMONARY Hx Asthma: Yes Hx Chronic Obstructive Pulmonary Disease (COPD): Yes - NEUROLOGICAL Hx Neurological Disorder: Yes Hx Dizziness: Yes - HEENT Hx HEENT Problems: No - RENAL Hx Chronic Kidney Disease: No - ENDOCRINE/METABOLIC Hx Diabetes Mellitus Type 2: Yes - HEMATOLOGICAL/ONCOLOGICAL Hx Blood Disorders: No - INTEGUMENTARY Hx Dermatological Problems: No - MUSCULOSKELETAL/RHEUMATOLOGICAL Hx Falls: Yes - GASTROINTESTINAL Hx Gastrointestinal Disorders: No - GENITOURINARY/GYNECOLOGICAL Hx Genitourinary Disorders: No - PSYCHIATRIC Hx Substance Use: No - SURGICAL HISTORY Hx Surgeries: No - ANESTHESIA Hx Anesthesia: No Meds Home Medications: Home Medication List Medication Instructions Recorded Confirmed Type Albuterol/Ipratropium [Duoneb 3 3 ml INH Q4 #0 neb 01/18/18 01/15/18 Rx mg/0.5 mg (3 ml) UD] Ascorbic Acid [Vitamin C 500 mg 250 mg PO DAILY tab 01/18/18 Rx Tab] Aspirin [Aspirin Chewable] 81 mg PO DAILY chew 01/18/18 Rx Multivitamin [Multi-Delyn Liquid] 5 ml PO DAILY syr 01/18/18 Rx Piperacillin/Tazobact [Zosyn] 3.375 gm IVPB Q8H 14 Days vial 01/18/18 Rx Zinc [Zinc Sulfate 220 mg Cap] 220 mg PO DAILY cap 01/18/18 Rx diltiaZEM [Cardizem] 30 mg PO Q6 tab 01/18/18 Rx Allergies/Adverse Reactions: Allergies Allergy/AdvReac Type Severity Reaction Status Date / Time No Known Allergies Allergy Verified 11/11/17 13:45 - Medications Medications: Current Medications Acetaminophen (Tylenol 325mg Tab) 650 mg PO Q4 PRN PRN Reason: Fever >100.4 F Albuterol/Ipratropium (Duoneb 3 Mg/0.5 Mg (3 Ml) Ud) 3 ml INH RQ4 [facility] Last Admin: 01/16/18 07:20 Dose: 3 ml Ascorbic Acid (Vitamin C 500 Mg Tab) 250 mg PO DAILY [facility] Last Admin: 01/16/18 09:55 Dose: 250 mg Aspirin (Aspirin Chewable) 81 mg PO DAILY [facility] Last Admin: 01/16/18 09:54 Dose: 81 mg Collagenase (Santyl) 0 gm TOP DAILY [facility] Last Admin: 01/16/18 09:55 Dose: 1 applic Diltiazem HCl (Cardizem) 30 mg PO Q6 [facility] Last Admin: 01/16/18 11:29 Dose: 30 mg Furosemide (Lasix) 40 mg PO DAILY [facility] Last Admin: 01/16/18 09:55 Dose: 40 mg Heparin Sodium (Porcine) (Heparin) 5,000 units SC Q8 [facility] Last Admin: 01/15/18 22:46 Dose: 5,000 units Piperacillin Sod/Tazobactam (Sod 3.375 gm/ Sodium Chloride) 100 mls @ 200 mls/ hr IVPB Q8H [facility] PRN Reason: Protocol Last Admin: 01/16/18 11:29 Dose: 200 mls/hr Vancomycin/Sodium Chloride (Vancomycin 1 Gm/Ns 200 Ml) 1 gm in 200 mls @ 166.7 mls/hr IVPB Q12H [facility] PRN Reason: Protocol Stop: 01/20/18 15:01 Last Admin: 01/16/18 03:17 Dose: 166.7 mls/hr Multivitamins/Vitamin C (Multi-Delyn Liquid) 5 ml PO DAILY [facility] Last Admin: 01/16/18 09:54 Dose: 5 ml Pantoprazole Sodium (Protonix Inj) 40 mg IVP DAILY [facility] Last Admin: 01/16/18 09:54 Dose: 40 mg Zinc Sulfate (Zinc Sulfate 220 Mg Cap) 220 mg PO DAILY [facility] Last Admin: 01/16/18 09:55 Dose: 220 mg Physical Exam - Constitutional Appears: Confused, Cachectic, Chronically Ill - Head Exam Head Exam: ATRAUMATIC, NORMAL INSPECTION, NORMOCEPHALIC - Eye Exam Eye Exam: PERRL. absent: Scleral icterus - ENT Exam ENT Exam: Mucous Membranes Dry, Normal External Ear Exam - Neck Exam Neck exam: Negative for: Lymphadenopathy, Thyromegaly - Respiratory Exam Respiratory Exam: Decreased Breath Sounds, Rhonchi - Cardiovascular Exam Cardiovascular Exam: REGULAR RHYTHM, +S1, +S2 - GI/Abdominal Exam GI & Abdominal Exam: Diminished Bowel Sounds, Distended, Soft. absent: Tenderness - Rectal Exam Rectal Exam: Deferred - Exam Exam: NORMAL INSPECTION - Extremities Exam Extremities exam: Positive for: pedal pulses present. Negative for: calf tenderness, pedal edema, tenderness - Back Exam Back exam: absent: CVA tenderness (L), CVA tenderness (R), paraspinal tenderness - Neurological Exam Neurological exam: Alert, Altered, CN II-XII Intact, Reflexes Normal - Psychiatric Exam Psychiatric exam: Depressed - Skin Skin Exam: Dry, Intact Results - Vital Signs Recent Vital Signs: Last Vital Signs Temp 98.9 F 01/16/18 08:00 Pulse 108 H 01/16/18 10:29 Resp 30 H 01/16/18 10:29 BP 131/87 01/16/18 10:29 Pulse Ox 94 L 01/16/18 10:29 - Labs Result Diagrams: 01/18/18 06:28 01/18/18 06:26 Labs: Laboratory Results - last 24 hr 01/15/18 01/15/18 01/16/18 11:45 13:10 04:07 WBC RBC Hgb Hct MCV MCH MCHC RDW Plt Count MPV Neut % (Auto) Lymph % (Auto) [place] % (Auto) Eos % (Auto) Baso % (Auto) Neut # (Auto) Lymph # (Auto) [place] # (Auto) Eos # (Auto) Baso # (Auto) Puncture Site L/f pCO2 85 H* pO2 62 L HCO3 37.8 H ABG pH 7.35 ABG Total CO2 49.5 H ABG O2 Saturation 91.8 L ABG Base Excess 16.8 H ABG Hemoglobin ABG Carboxyhemoglobin POC ABG HHb (Measured) ABG Methemoglobin Suraj Test Na ABG Potassium 4.0 A-a O2 Difference 117.0 Respiratory Index 1.9 Hgb O2 Saturation Sodium 144.0 Chloride 106.0 Glucose 108 Lactate 0.8 Vent Mode Mechanical Rate FiO2 40.0 Tidal Volume PEEP Crit Value Called To Dr avery Crit Value Called By [place] 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 Crit Value Read Back Y Blood Gas Notified Time 1320 Potassium Carbon Dioxide Anion Gap BUN Creatinine Est GFR ( Amer) Est GFR (Non-Af Amer) Random Glucose Calcium Total Bilirubin AST ALT Alkaline Phosphatase Total Protein Albumin Globulin Albumin/Globulin Ratio Arterial Blood Potassium 4.0 Urine Color Yellow Urine Clarity Hazy Urine pH 5.0 Ur Specific [place] 1.024 Urine Protein Negative Urine Glucose (UA) Normal Urine Ketones Negative Urine Blood Negative Urine Nitrate Negative Urine Bilirubin Negative Urine Urobilinogen 4.0 Ur Leukocyte Esterase Neg Urine WBC (Auto) 4 Urine RBC (Auto) 3 Ur Squamous Epith Cells < 1 Urine Bacteria Rare Hyaline Casts 3-5 H Vancomycin Peak Vancomycin Trough 23.7 H 01/16/18 01/16/18 01/16/18 04:07 04:07 04:30 WBC 6.0 D RBC 2.74 L Hgb 8.2 L Hct 26.1 L MCV 95.4 H MCH 29.7 MCHC 31.2 L RDW 19.0 H Plt Count 123 L D MPV 8.7 Neut % (Auto) 74.3 Lymph % (Auto) 19.4 L [place] % (Auto) 5.6 Eos % (Auto) 0.4 Baso % (Auto) 0.3 Neut # (Auto) 4.4 Lymph # (Auto) 1.2 [place] # (Auto) 0.3 Eos # (Auto) 0.0 Baso # (Auto) 0.0 Puncture Site Rr pCO2 52 H pO2 63 L HCO3 37.8 H ABG pH 7.51 H ABG Total CO2 43.1 H ABG O2 Saturation 95.1 ABG Base Excess 16.6 H ABG Hemoglobin 9.0 L ABG Carboxyhemoglobin 2.6 H POC ABG HHb (Measured) 4.7 ABG Methemoglobin 1.0 Suraj Test Pos ABG Potassium A-a O2 Difference 229.0 Respiratory Index 3.6 Hgb O2 Saturation 91.8 L Sodium 148 Chloride 105 Glucose Lactate Vent Mode Prvc Mechanical Rate 16 FiO2 50.0 Tidal Volume 450 PEEP 5 Crit Value Called To Crit Value Called By Crit Value Read Back Blood Gas Notified Time Potassium 3.8 Carbon Dioxide 37 H Anion Gap 10 BUN 31 H Creatinine 0.5 L Est GFR ( Amer) > 60 Est GFR (Non-Af Amer) > 60 Random Glucose 94 Calcium 7.7 L Total Bilirubin 0.5 AST 25 ALT 24 Alkaline Phosphatase 71 Total Protein 6.0 L Albumin 2.2 L D Globulin 3.8 Albumin/Globulin Ratio 0.6 L Arterial Blood Potassium Urine Color Urine Clarity Urine pH Ur Specific [place] Urine Protein Urine Glucose (UA) Urine Ketones Urine Blood Urine Nitrate Urine Bilirubin Urine Urobilinogen Ur Leukocyte Esterase Urine WBC (Auto) Urine RBC (Auto) Ur Squamous Epith Cells Urine Bacteria Hyaline Casts Vancomycin Peak Vancomycin Trough 01/16/18 06:17 WBC RBC Hgb Hct MCV MCH MCHC RDW Plt Count MPV Neut % (Auto) Lymph % (Auto) [place] % (Auto) Eos % (Auto) Baso % (Auto) Neut # (Auto) Lymph # (Auto) [place] # (Auto) Eos # (Auto) Baso # (Auto) Puncture Site pCO2 pO2 HCO3 ABG pH ABG Total CO2 ABG O2 Saturation ABG Base Excess ABG Hemoglobin ABG Carboxyhemoglobin POC ABG HHb (Measured) ABG Methemoglobin Suraj Test ABG Potassium A-a O2 Difference Respiratory Index Hgb O2 Saturation Sodium Chloride Glucose Lactate Vent Mode Mechanical Rate FiO2 Tidal Volume PEEP Crit Value Called To Crit Value Called By Crit Value Read Back Blood Gas Notified Time Potassium Carbon Dioxide Anion Gap BUN Creatinine Est GFR ( Amer) Est GFR (Non-Af Amer) Random Glucose Calcium Total Bilirubin AST ALT Alkaline Phosphatase Total Protein Albumin Globulin Albumin/Globulin Ratio Arterial Blood Potassium Urine Color Urine Clarity Urine pH Ur Specific [place] Urine Protein Urine Glucose (UA) Urine Ketones Urine Blood Urine Nitrate Urine Bilirubin Urine Urobilinogen Ur Leukocyte Esterase Urine WBC (Auto) Urine RBC (Auto) Ur Squamous Epith Cells Urine Bacteria Hyaline Casts Vancomycin Peak 25.8 L Vancomycin Trough Assessment & Plan (1) Acute on chronic respiratory failure with hypoxia and hypercapnia Status: Acute (2) Anemia Status: Acute (3) COPD exacerbation Status: Acute (4) Dyspnea Status: Acute (5) Pneumonia Status: Acute (6) CHF (congestive heart failure) Status: Chronic (7) Laryngeal cancer Status: Chronic (8) Acute hypercapnic respiratory failure Status: Acute - Assessment and Plan (Free Text) Assessment: improving s/p trach cultures reviewed antibiotics reordered cont rx Plan: will need follow up cxr
--- NOTE | 2018-01-16 14:11 | CP.CCUPN ---
<Buck Santiago - Last Filed: 01/16/18 14:13> CCU Subjective - Physician Review Subjective (Free Text): 01/15/18 11:12 Patient seen and examined at bedside. Per nursing no acute events occurred overnight. 01/16/18 14:09 Patient seen and examined at bedside. Per nursing no acute events occurred overnight. Critical Care Time Spent (in minutes): 45 CCU Objective - Vital Signs / Intake & Output Vital Signs (Last 4 hours): Vital Signs Temp Pulse Resp BP Pulse Ox 01/16/18 13:29 99 H 17 119/76 95 01/16/18 13:00 95 H 23 93 L 01/16/18 12:29 101 H 23 119/77 89 L 01/16/18 12:00 98.5 F 101 H 18 95 01/16/18 11:28 108 H 24 122/84 95 01/16/18 11:00 111 H 14 95 01/16/18 10:29 108 H 30 H 131/87 94 L Intake and Output (Last 8hrs): Intake & Output 01/15/18 01/16/18 01/16/18 22:59 06:59 14:59 Intake Total 1085 1460 1170 Output Total 355 400 300 Balance 730 1060 870 Weight 88 lb 3.2 oz Intake: Intake, IV Amount 975 1200 550 left AC 975 1200 550 Oral 0 0 280 Tube Feeding 110 260 340 Output: Urine 355 400 300 Urethral (Echavarria) 355 400 300 Other: # Bowel Movements 0 0 0 - Physical Exam Head: Positive for: Atraumatic, Normocephalic Pupils: Positive for: PERRL Extroacular Muscles: Positive for: EOMI Conjunctiva: Positive for: Normal Mouth: Positive for: Moist Mucous Membranes Neck: Positive for: Other (trach in place) Cardiovascular: Positive for: Regular Rate and Rhythm, Normal S1, S2 Abdomen: Positive for: Normal Bowel Sounds Upper Extremity: Negative for: Cyanosis Neurological: Positive for: Speech Normal Skin: Positive for: Dry, Normal Color Psychiatric: Positive for: Alert, Normal Concentration - Medications Active Medications: Active Medications Generic Name Dose Route Start Last Admin Trade Name Freq PRN Reason Stop Dose Admin Acetaminophen 650 mg 01/15/18 04:15 Tylenol 325mg Tab PO Q4 PRN Fever >100.4 F Albuterol/Ipratropium 3 ml 01/15/18 16:00 01/16/18 13:25 Duoneb 3 Mg/0.5 Mg (3 Ml) Ud INH 3 ml RQ4 JUANA Administration Ascorbic Acid 250 mg 01/16/18 10:00 01/16/18 09:55 Vitamin C 500 Mg Tab PO 250 mg DAILY JUANA Administration Aspirin 81 mg 01/16/18 10:00 01/16/18 09:54 Aspirin Chewable PO 81 mg DAILY JUANA Administration Collagenase 0 gm 01/16/18 10:00 01/16/18 09:55 Santyl TOP 1 applic DAILY JUANA Administration Diltiazem HCl 30 mg 01/16/18 12:00 01/16/18 11:29 Cardizem PO 30 mg Q6 JUANA Administration Furosemide 40 mg 01/16/18 10:00 01/16/18 09:55 Lasix PO 40 mg DAILY JUANA Administration Heparin Sodium (Porcine) 5,000 units 01/15/18 06:00 01/15/18 22:46 Heparin SC 5,000 units Q8 JUANA Administration Piperacillin Sod/Tazobactam 100 mls @ 200 mls/hr 01/15/18 04:30 01/16/18 11: 29 Sod 3.375 gm/ Sodium Chloride IVPB 200 mls/hr Q8H JUANA Administration Protocol Vancomycin/Sodium Chloride 1 gm in 200 mls @ 166.7 mls/hr 01/15/18 15:00 04/30 03:17 Vancomycin 1 Gm/Ns 200 Ml IVPB 01/20/18 15:01 166.7 mls/hr Q12H JUANA Administration Protocol Multivitamins/Vitamin C 5 ml 01/16/18 10:00 01/16/18 09:54 Multi-Delyn Liquid PO 5 ml DAILY JUANA Administration Pantoprazole Sodium 40 mg 01/15/18 11:00 01/16/18 09:54 Protonix Inj IVP 40 mg DAILY JUANA Administration Zinc Sulfate 220 mg 01/16/18 10:00 01/16/18 09:55 Zinc Sulfate 220 Mg Cap PO 220 mg DAILY JUANA Administration - Patient Studies Lab Studies: Microbiology Studies 01/15/18 09:00 MRSA Culture (Admit) - Final Nose MRSA NOT DETECTED 01/15/18 14:00 Urine Culture - Final Urine,Echavarria No Growth (<1,000 CFU/ML) 01/15/18 10:40 Gram Stain - Final Sputum Sputum Culture - Preliminary Gram Negative Ant Gram Negative Ant#2 01/15/18 04:00 Blood Culture - Preliminary Blood NO GROWTH AFTER 24 HOURS 01/15/18 04:30 Blood Culture - Preliminary Blood NO GROWTH AFTER 24 HOURS Lab Studies 01/16/18 01/16/18 01/16/18 Range/Units 06:17 04:30 04:07 WBC 6.0 D (4.8-10.8) K/uL RBC 2.74 L (4.40-5.90) Mil/uL Hgb 8.2 L (12.0-18.0) g/dL Hct 26.1 L (35.0-51.0) % MCV 95.4 H (80.0-94.0) fL MCH 29.7 (27.0-31.0) pg MCHC 31.2 L (33.0-37.0) g/dL RDW 19.0 H (11.5-14.5) % Plt Count 123 L D (130-400) K/uL MPV 8.7 (7.2-11.7) fL Neut % (Auto) 74.3 (50.0-75.0) % Lymph % (Auto) 19.4 L (20.0-40.0) % [place] % (Auto) 5.6 (0.0-10.0) % Eos % (Auto) 0.4 (0.0-4.0) % Baso % (Auto) 0.3 (0.0-2.0) % Neut # (Auto) 4.4 (1.8-7.0) K/uL Lymph # (Auto) 1.2 (1.0-4.3) K/uL [place] # (Auto) 0.3 (0.0-0.8) K/uL Eos # (Auto) 0.0 (0.0-0.7) K/uL Baso # (Auto) 0.0 (0.0-0.2) K/uL Puncture Site Rr pCO2 52 H (35-45) mm/Hg pO2 63 L (80-100) mm/Hg HCO3 37.8 H (21-28) mmol/L ABG pH 7.51 H (7.35-7.45) ABG Total CO2 43.1 H (22-28) mmol/L ABG O2 Saturation 95.1 (95-98) % ABG Base Excess 16.6 H (-2.0-3.0) mmol/L ABG Hemoglobin 9.0 L (11.7-17.4) g/dL ABG Carboxyhemoglobin 2.6 H (0.5-1.5) % POC ABG HHb (Measured) 4.7 (0.0-5.0) % ABG Methemoglobin 1.0 (0.0-3.0) % Suraj Test Pos A-a O2 Difference 229.0 mm/Hg Respiratory Index 3.6 Hgb O2 Saturation 91.8 L (95.0-98.0) % Vent Mode Prvc Mechanical Rate 16 FiO2 50.0 % Tidal Volume 450 PEEP 5 Sodium (132-148) mmol/L Potassium (3.6-5.2) mmol/L Chloride (98-107) mmol/L Carbon Dioxide (22-30) mmol/L Anion Gap (10-20) BUN (9-20) mg/dL Creatinine (0.8-1.5) mg/dL Est GFR ( Amer) Est GFR (Non-Af Amer) Random Glucose (75-110) mg/dL Calcium (8.6-10.4) mg/dl Total Bilirubin (0.2-1.3) mg/dL AST (17-59) U/L ALT (21-72) U/L Alkaline Phosphatase (38-126) U/L Total Protein (6.3-8.3) g/dL Albumin (3.5-5.0) g/dL Globulin (2.2-3.9) gm/dL Albumin/Globulin Ratio (1.0-2.1) Vancomycin Peak 25.8 L (30.0-40.0) ug/mL Vancomycin Trough (5.0-10.0) ug/mL 01/16/18 01/16/18 Range/Units 04:07 04:07 WBC (4.8-10.8) K/uL RBC (4.40-5.90) Mil/uL Hgb (12.0-18.0) g/dL Hct (35.0-51.0) % MCV (80.0-94.0) fL MCH (27.0-31.0) pg MCHC (33.0-37.0) g/dL RDW (11.5-14.5) % Plt Count (130-400) K/uL MPV (7.2-11.7) fL Neut % (Auto) (50.0-75.0) % Lymph % (Auto) (20.0-40.0) % [place] % (Auto) (0.0-10.0) % Eos % (Auto) (0.0-4.0) % Baso % (Auto) (0.0-2.0) % Neut # (Auto) (1.8-7.0) K/uL Lymph # (Auto) (1.0-4.3) K/uL [place] # (Auto) (0.0-0.8) K/uL Eos # (Auto) (0.0-0.7) K/uL Baso # (Auto) (0.0-0.2) K/uL Puncture Site pCO2 (35-45) mm/Hg pO2 (80-100) mm/Hg HCO3 (21-28) mmol/L ABG pH (7.35-7.45) ABG Total CO2 (22-28) mmol/L ABG O2 Saturation (95-98) % ABG Base Excess (-2.0-3.0) mmol/L ABG Hemoglobin (11.7-17.4) g/dL ABG Carboxyhemoglobin (0.5-1.5) % POC ABG HHb (Measured) (0.0-5.0) % ABG Methemoglobin (0.0-3.0) % Suraj Test A-a O2 Difference mm/Hg Respiratory Index Hgb O2 Saturation (95.0-98.0) % Vent Mode Mechanical Rate FiO2 % Tidal Volume PEEP Sodium 148 (132-148) mmol/L Potassium 3.8 (3.6-5.2) mmol/L Chloride 105 (98-107) mmol/L Carbon Dioxide 37 H (22-30) mmol/L Anion Gap 10 (10-20) BUN 31 H (9-20) mg/dL Creatinine 0.5 L (0.8-1.5) mg/dL Est GFR ( Amer) > 60 Est GFR (Non-Af Amer) > 60 Random Glucose 94 (75-110) mg/dL Calcium 7.7 L (8.6-10.4) mg/dl Total Bilirubin 0.5 (0.2-1.3) mg/dL AST 25 (17-59) U/L ALT 24 (21-72) U/L Alkaline Phosphatase 71 (38-126) U/L Total Protein 6.0 L (6.3-8.3) g/dL Albumin 2.2 L D (3.5-5.0) g/dL Globulin 3.8 (2.2-3.9) gm/dL Albumin/Globulin Ratio 0.6 L (1.0-2.1) Vancomycin Peak (30.0-40.0) ug/mL Vancomycin Trough 23.7 H (5.0-10.0) ug/mL Laboratory Results - last 24 hr 01/16/18 01/16/18 01/16/18 04:07 04:07 04:07 WBC 6.0 D RBC 2.74 L Hgb 8.2 L Hct 26.1 L MCV 95.4 H MCH 29.7 MCHC 31.2 L RDW 19.0 H Plt Count 123 L D MPV 8.7 Neut % (Auto) 74.3 Lymph % (Auto) 19.4 L [place] % (Auto) 5.6 Eos % (Auto) 0.4 Baso % (Auto) 0.3 Neut # (Auto) 4.4 Lymph # (Auto) 1.2 [place] # (Auto) 0.3 Eos # (Auto) 0.0 Baso # (Auto) 0.0 Puncture Site pCO2 pO2 HCO3 ABG pH ABG Total CO2 ABG O2 Saturation ABG Base Excess ABG Hemoglobin ABG Carboxyhemoglobin POC ABG HHb (Measured) ABG Methemoglobin Suraj Test A-a O2 Difference Respiratory Index Hgb O2 Saturation Vent Mode Mechanical Rate FiO2 Tidal Volume PEEP Sodium 148 Potassium 3.8 Chloride 105 Carbon Dioxide 37 H Anion Gap 10 BUN 31 H Creatinine 0.5 L Est GFR ( Amer) > 60 Est GFR (Non-Af Amer) > 60 Random Glucose 94 Calcium 7.7 L Total Bilirubin 0.5 AST 25 ALT 24 Alkaline Phosphatase 71 Total Protein 6.0 L Albumin 2.2 L D Globulin 3.8 Albumin/Globulin Ratio 0.6 L Vancomycin Peak Vancomycin Trough 23.7 H 01/16/18 01/16/18 04:30 06:17 WBC RBC Hgb Hct MCV MCH MCHC RDW Plt Count MPV Neut % (Auto) Lymph % (Auto) [place] % (Auto) Eos % (Auto) Baso % (Auto) Neut # (Auto) Lymph # (Auto) [place] # (Auto) Eos # (Auto) Baso # (Auto) Puncture Site Rr pCO2 52 H pO2 63 L HCO3 37.8 H ABG pH 7.51 H ABG Total CO2 43.1 H ABG O2 Saturation 95.1 ABG Base Excess 16.6 H ABG Hemoglobin 9.0 L ABG Carboxyhemoglobin 2.6 H POC ABG HHb (Measured) 4.7 ABG Methemoglobin 1.0 Suraj Test Pos A-a O2 Difference 229.0 Respiratory Index 3.6 Hgb O2 Saturation 91.8 L Vent Mode Prvc Mechanical Rate 16 FiO2 50.0 Tidal Volume 450 PEEP 5 Sodium Potassium Chloride Carbon Dioxide Anion Gap BUN Creatinine Est GFR ( Amer) Est GFR (Non-Af Amer) Random Glucose Calcium Total Bilirubin AST ALT Alkaline Phosphatase Total Protein Albumin Globulin Albumin/Globulin Ratio Vancomycin Peak 25.8 L Vancomycin Trough Review of Systems - Review of Systems Systems not reviewed;Unavailable: Other (patient s/p Trach.) Assessment/Plan - Assessment and Plan (Free Text) Assessment: 72 year old male with a past medical history of laryngeal cancer, asthma, chf, copd, hypertension, Type 2 diabetes mellitus, s/p peg and trach. Patient was [facility] Plan: Pulmonary: COPD exacerbation, Pneumonia chest xray: dense consolidative opacifications seen within the left upper to mid lung zone suggestive for underlying infiltrate, hyperinflation suggestive for COPD and or emphysematous changes Chest ct:progressive consolidation noted throughout the left dre thorax predominantly within the left upper lobe, additional patchy multifocal nodular infiltrates noted bilaterally. 16mm right upper lobe and 14mm left upper lobe cavitary lesion/consolidations. cavitary malignant neoplasm vs. infection. Continue Vancomycin 1gm Q12 Continue Zosyn 3.375gm Q8 Duonebs 3ml INH Q4. FIO2:35% PPX -Protonix 40mg Daily -Heparin 5000 units SC Q8. -IVF fluids NS @150mls/hr <Remy Denton - Last Filed: 01/16/18 17:51> CCU Objective - Vital Signs / Intake & Output Vital Signs (Last 4 hours): Vital Signs Temp Pulse Resp BP Pulse Ox 01/16/18 17:28 96 H 19 114/72 92 L 01/16/18 17:00 95 H 13 92 L 01/16/18 16:29 95 H 16 120/75 98 01/16/18 16:00 98.0 F 96 H 17 92 L 01/16/18 15:29 94 H 21 114/66 95 01/16/18 15:00 96 H 20 94 L 01/16/18 14:29 98 H 30 H 113/67 94 L 01/16/18 14:00 99 H 13 95 Intake and Output (Last 8hrs): Intake & Output 01/16/18 01/16/18 01/16/18 06:59 14:59 22:59 Intake Total 1460 1220 250 Output Total 400 340 130 Balance 1060 880 120 Weight 88 lb 3.2 oz Intake: Intake, IV Amount 1200 550 0 left AC 1200 550 0 Oral 0 280 100 Tube Feeding 260 390 150 Output: Urine 400 340 130 Urethral (Echavarria) 400 340 130 Other: # Bowel Movements 0 0 0 - Medications Active Medications: Active Medications Generic Name Dose Route Start Last Admin Trade Name Freq PRN Reason Stop Dose Admin Acetaminophen 650 mg 01/15/18 04:15 Tylenol 325mg Tab PO Q4 PRN Fever >100.4 F Albuterol/Ipratropium 3 ml 01/15/18 16:00 01/16/18 16:40 Duoneb 3 Mg/0.5 Mg (3 Ml) Ud INH 3 ml RQ4 JUANA Administration Ascorbic Acid 250 mg 01/16/18 10:00 01/16/18 09:55 Vitamin C 500 Mg Tab PO 250 mg DAILY JUANA Administration Aspirin 81 mg 01/16/18 10:00 01/16/18 09:54 Aspirin Chewable PO 81 mg DAILY JUANA Administration Collagenase 0 gm 01/16/18 10:00 01/16/18 09:55 Santyl TOP 1 applic DAILY JUANA Administration Diltiazem HCl 30 mg 01/16/18 12:00 01/16/18 17:41 Cardizem PO 30 mg Q6 JUANA Administration Furosemide 40 mg 01/16/18 10:00 01/16/18 09:55 Lasix PO 40 mg DAILY JUANA Administration Heparin Sodium (Porcine) 5,000 units 01/15/18 06:00 01/16/18 14:57 Heparin SC 5,000 units Q8 JUANA Administration Piperacillin Sod/Tazobactam 100 mls @ 200 mls/hr 01/15/18 04:30 01/16/18 11: 29 Sod 3.375 gm/ Sodium Chloride IVPB 200 mls/hr Q8H JUANA Administration Protocol Vancomycin/Sodium Chloride 1 gm in 200 mls @ 166.7 mls/hr 01/15/18 15:00 04/30 14:58 Vancomycin 1 Gm/Ns 200 Ml IVPB 01/20/18 15:01 166.7 mls/hr Q12H JUANA Administration Protocol Multivitamins/Vitamin C 5 ml 01/16/18 10:00 01/16/18 09:54 Multi-Delyn Liquid PO 5 ml DAILY JUANA Administration Pantoprazole Sodium 40 mg 01/15/18 11:00 01/16/18 09:54 Protonix Inj IVP 40 mg DAILY JUANA Administration Zinc Sulfate 220 mg 01/16/18 10:00 01/16/18 09:55 Zinc Sulfate 220 Mg Cap PO 220 mg DAILY JUANA Administration - Patient Studies Lab Studies: Microbiology Studies 01/15/18 09:00 MRSA Culture (Admit) - Final Nose MRSA NOT DETECTED 01/15/18 14:00 Urine Culture - Final Urine,Echavarria No Growth (<1,000 CFU/ML) 01/15/18 10:40 Gram Stain - Final Sputum Sputum Culture - Preliminary Gram Negative Ant Gram Negative Ant#2 01/15/18 04:00 Blood Culture - Preliminary Blood NO GROWTH AFTER 24 HOURS 01/15/18 04:30 Blood Culture - Preliminary Blood NO GROWTH AFTER 24 HOURS Lab Studies 01/16/18 01/16/18 01/16/18 Range/Units 06:17 04:30 04:07 WBC 6.0 D (4.8-10.8) K/uL RBC 2.74 L (4.40-5.90) Mil/uL Hgb 8.2 L (12.0-18.0) g/dL Hct 26.1 L (35.0-51.0) % MCV 95.4 H (80.0-94.0) fL MCH 29.7 (27.0-31.0) pg MCHC 31.2 L (33.0-37.0) g/dL RDW 19.0 H (11.5-14.5) % Plt Count 123 L D (130-400) K/uL MPV 8.7 (7.2-11.7) fL Neut % (Auto) 74.3 (50.0-75.0) % Lymph % (Auto) 19.4 L (20.0-40.0) % [place] % (Auto) 5.6 (0.0-10.0) % Eos % (Auto) 0.4 (0.0-4.0) % Baso % (Auto) 0.3 (0.0-2.0) % Neut # (Auto) 4.4 (1.8-7.0) K/uL Lymph # (Auto) 1.2 (1.0-4.3) K/uL [place] # (Auto) 0.3 (0.0-0.8) K/uL Eos # (Auto) 0.0 (0.0-0.7) K/uL Baso # (Auto) 0.0 (0.0-0.2) K/uL Puncture Site Rr pCO2 52 H (35-45) mm/Hg pO2 63 L (80-100) mm/Hg HCO3 37.8 H (21-28) mmol/L ABG pH 7.51 H (7.35-7.45) ABG Total CO2 43.1 H (22-28) mmol/L ABG O2 Saturation 95.1 (95-98) % ABG Base Excess 16.6 H (-2.0-3.0) mmol/L ABG Hemoglobin 9.0 L (11.7-17.4) g/dL ABG Carboxyhemoglobin 2.6 H (0.5-1.5) % POC ABG HHb (Measured) 4.7 (0.0-5.0) % ABG Methemoglobin 1.0 (0.0-3.0) % Suraj Test Pos A-a O2 Difference 229.0 mm/Hg Respiratory Index 3.6 Hgb O2 Saturation 91.8 L (95.0-98.0) % Vent Mode Prvc Mechanical Rate 16 FiO2 50.0 % Tidal Volume 450 PEEP 5 Sodium (132-148) mmol/L Potassium (3.6-5.2) mmol/L Chloride (98-107) mmol/L Carbon Dioxide (22-30) mmol/L Anion Gap (10-20) BUN (9-20) mg/dL Creatinine (0.8-1.5) mg/dL Est GFR ( Amer) Est GFR (Non-Af Amer) Random Glucose (75-110) mg/dL Calcium (8.6-10.4) mg/dl Total Bilirubin (0.2-1.3) mg/dL AST (17-59) U/L ALT (21-72) U/L Alkaline Phosphatase (38-126) U/L Total Protein (6.3-8.3) g/dL Albumin (3.5-5.0) g/dL Globulin (2.2-3.9) gm/dL Albumin/Globulin Ratio (1.0-2.1) Vancomycin Peak 25.8 L (30.0-40.0) ug/mL Vancomycin Trough (5.0-10.0) ug/mL 01/16/18 01/16/18 Range/Units 04:07 04:07 WBC (4.8-10.8) K/uL RBC (4.40-5.90) Mil/uL Hgb (12.0-18.0) g/dL Hct (35.0-51.0) % MCV (80.0-94.0) fL MCH (27.0-31.0) pg MCHC (33.0-37.0) g/dL RDW (11.5-14.5) % Plt Count (130-400) K/uL MPV (7.2-11.7) fL Neut % (Auto) (50.0-75.0) % Lymph % (Auto) (20.0-40.0) % [place] % (Auto) (0.0-10.0) % Eos % (Auto) (0.0-4.0) % Baso % (Auto) (0.0-2.0) % Neut # (Auto) (1.8-7.0) K/uL Lymph # (Auto) (1.0-4.3) K/uL [place] # (Auto) (0.0-0.8) K/uL Eos # (Auto) (0.0-0.7) K/uL Baso # (Auto) (0.0-0.2) K/uL Puncture Site pCO2 (35-45) mm/Hg pO2 (80-100) mm/Hg HCO3 (21-28) mmol/L ABG pH (7.35-7.45) ABG Total CO2 (22-28) mmol/L ABG O2 Saturation (95-98) % ABG Base Excess (-2.0-3.0) mmol/L ABG Hemoglobin (11.7-17.4) g/dL ABG Carboxyhemoglobin (0.5-1.5) % POC ABG HHb (Measured) (0.0-5.0) % ABG Methemoglobin (0.0-3.0) % Suraj Test A-a O2 Difference mm/Hg Respiratory Index Hgb O2 Saturation (95.0-98.0) % Vent Mode Mechanical Rate FiO2 % Tidal Volume PEEP Sodium 148 (132-148) mmol/L Potassium 3.8 (3.6-5.2) mmol/L Chloride 105 (98-107) mmol/L Carbon Dioxide 37 H (22-30) mmol/L Anion Gap 10 (10-20) BUN 31 H (9-20) mg/dL Creatinine 0.5 L (0.8-1.5) mg/dL Est GFR ( Amer) > 60 Est GFR (Non-Af Amer) > 60 Random Glucose 94 (75-110) mg/dL Calcium 7.7 L (8.6-10.4) mg/dl Total Bilirubin 0.5 (0.2-1.3) mg/dL AST 25 (17-59) U/L ALT 24 (21-72) U/L Alkaline Phosphatase 71 (38-126) U/L Total Protein 6.0 L (6.3-8.3) g/dL Albumin 2.2 L D (3.5-5.0) g/dL Globulin 3.8 (2.2-3.9) gm/dL Albumin/Globulin Ratio 0.6 L (1.0-2.1) Vancomycin Peak (30.0-40.0) ug/mL Vancomycin Trough 23.7 H (5.0-10.0) ug/mL Laboratory Results - last 24 hr 01/16/18 01/16/18 01/16/18 04:07 04:07 04:07 WBC 6.0 D RBC 2.74 L Hgb 8.2 L Hct 26.1 L MCV 95.4 H MCH 29.7 MCHC 31.2 L RDW 19.0 H Plt Count 123 L D MPV 8.7 Neut % (Auto) 74.3 Lymph % (Auto) 19.4 L [place] % (Auto) 5.6 Eos % (Auto) 0.4 Baso % (Auto) 0.3 Neut # (Auto) 4.4 Lymph # (Auto) 1.2 [place] # (Auto) 0.3 Eos # (Auto) 0.0 Baso # (Auto) 0.0 Puncture Site pCO2 pO2 HCO3 ABG pH ABG Total CO2 ABG O2 Saturation ABG Base Excess ABG Hemoglobin ABG Carboxyhemoglobin POC ABG HHb (Measured) ABG Methemoglobin Suraj Test A-a O2 Difference Respiratory Index Hgb O2 Saturation Vent Mode Mechanical Rate FiO2 Tidal Volume PEEP Sodium 148 Potassium 3.8 Chloride 105 Carbon Dioxide 37 H Anion Gap 10 BUN 31 H Creatinine 0.5 L Est GFR ( Amer) > 60 Est GFR (Non-Af Amer) > 60 Random Glucose 94 Calcium 7.7 L Total Bilirubin 0.5 AST 25 ALT 24 Alkaline Phosphatase 71 Total Protein 6.0 L Albumin 2.2 L D Globulin 3.8 Albumin/Globulin Ratio 0.6 L Vancomycin Peak Vancomycin Trough 23.7 H 01/16/18 01/16/18 04:30 06:17 WBC RBC Hgb Hct MCV MCH MCHC RDW Plt Count MPV Neut % (Auto) Lymph % (Auto) [place] % (Auto) Eos % (Auto) Baso % (Auto) Neut # (Auto) Lymph # (Auto) [place] # (Auto) Eos # (Auto) Baso # (Auto) Puncture Site Rr pCO2 52 H pO2 63 L HCO3 37.8 H ABG pH 7.51 H ABG Total CO2 43.1 H ABG O2 Saturation 95.1 ABG Base Excess 16.6 H ABG Hemoglobin 9.0 L ABG Carboxyhemoglobin 2.6 H POC ABG HHb (Measured) 4.7 ABG Methemoglobin 1.0 Suraj Test Pos A-a O2 Difference 229.0 Respiratory Index 3.6 Hgb O2 Saturation 91.8 L Vent Mode Prvc Mechanical Rate 16 FiO2 50.0 Tidal Volume 450 PEEP 5 Sodium Potassium Chloride Carbon Dioxide Anion Gap BUN Creatinine Est GFR ( Amer) Est GFR (Non-Af Amer) Random Glucose Calcium Total Bilirubin AST ALT Alkaline Phosphatase Total Protein Albumin Globulin Albumin/Globulin Ratio Vancomycin Peak 25.8 L Vancomycin Trough Assessment/Plan - Assessment and Plan (Free Text) Plan: Above [facility] note documents by history, physical exam and my management for patient with dx of hypoxic respiratory failure -Left lobar pneumonia -GNR sepsis -COPD -continue CPAP trials today -dc IVF -continue bronchodilators -cc time 45 minutes - Date & Time Date: 01/16/18 Time: 17:50
--- NOTE | 2018-01-16 16:06 | CP.PCM.PN ---
Subjective - Date & Time of Evaluation Date of Evaluation: 01/16/18 Time of Evaluation: 16:06 Objective - Vital Signs/Intake and Output Vital Signs (last 24 hours): Temp Pulse Resp BP Pulse Ox 98.5 F 99 H 17 119/76 95 01/16/18 12:00 01/16/18 13:29 01/16/18 13:29 01/16/18 13:29 01/16/18 13:29 Intake and Output: 01/16/18 01/16/18 06:59 18:59 Intake Total 2105 1170 Output Total 590 300 Balance 1515 870 - Medications Medications: Current Medications Acetaminophen (Tylenol 325mg Tab) 650 mg PO Q4 PRN PRN Reason: Fever >100.4 F Albuterol/Ipratropium (Duoneb 3 Mg/0.5 Mg (3 Ml) Ud) 3 ml INH RQ4 [facility] Last Admin: 01/16/18 13:25 Dose: 3 ml Ascorbic Acid (Vitamin C 500 Mg Tab) 250 mg PO DAILY [facility] Last Admin: 01/16/18 09:55 Dose: 250 mg Aspirin (Aspirin Chewable) 81 mg PO DAILY [facility] Last Admin: 01/16/18 09:54 Dose: 81 mg Collagenase (Santyl) 0 gm TOP DAILY [facility] Last Admin: 01/16/18 09:55 Dose: 1 applic Diltiazem HCl (Cardizem) 30 mg PO Q6 [facility] Last Admin: 01/16/18 11:29 Dose: 30 mg Furosemide (Lasix) 40 mg PO DAILY [facility] Last Admin: 01/16/18 09:55 Dose: 40 mg Heparin Sodium (Porcine) (Heparin) 5,000 units SC Q8 [facility] Last Admin: 01/16/18 14:57 Dose: 5,000 units Piperacillin Sod/Tazobactam (Sod 3.375 gm/ Sodium Chloride) 100 mls @ 200 mls/ hr IVPB Q8H [facility] PRN Reason: Protocol Last Admin: 01/16/18 11:29 Dose: 200 mls/hr Vancomycin/Sodium Chloride (Vancomycin 1 Gm/Ns 200 Ml) 1 gm in 200 mls @ 166.7 mls/hr IVPB Q12H [facility] PRN Reason: Protocol Stop: 01/20/18 15:01 Last Admin: 01/16/18 14:58 Dose: 166.7 mls/hr Multivitamins/Vitamin C (Multi-Delyn Liquid) 5 ml PO DAILY [facility] Last Admin: 01/16/18 09:54 Dose: 5 ml Pantoprazole Sodium (Protonix Inj) 40 mg IVP DAILY [facility] Last Admin: 01/16/18 09:54 Dose: 40 mg Zinc Sulfate (Zinc Sulfate 220 Mg Cap) 220 mg PO DAILY [facility] Last Admin: 01/16/18 09:55 Dose: 220 mg - Labs Labs: 01/16/18 04:07 01/16/18 04:07 PT 16.7 SECONDS (9.7-12.2) H 01/15/18 02:05 INR 1.5 01/15/18 02:05 APTT 37 SECONDS (21-34) H 01/15/18 02:05
--- NOTE | 2018-01-16 16:06 | CP.PCM.CON ---
Past Patient History - Past Medical History & Family History Past Medical History?: Yes - Past Social History Smoking Status: Unknown If Ever Smoked - CARDIAC Hx Congestive Heart Failure: Yes Hx Hypertension: Yes - PULMONARY Hx Asthma: Yes Hx Chronic Obstructive Pulmonary Disease (COPD): Yes - NEUROLOGICAL Hx Neurological Disorder: Yes Hx Dizziness: Yes - HEENT Hx HEENT Problems: No - RENAL Hx Chronic Kidney Disease: No - ENDOCRINE/METABOLIC Hx Diabetes Mellitus Type 2: Yes - HEMATOLOGICAL/ONCOLOGICAL Hx Blood Disorders: No - INTEGUMENTARY Hx Dermatological Problems: No - MUSCULOSKELETAL/RHEUMATOLOGICAL Hx Falls: Yes - GASTROINTESTINAL Hx Gastrointestinal Disorders: No - GENITOURINARY/GYNECOLOGICAL Hx Genitourinary Disorders: No - PSYCHIATRIC Hx Substance Use: No - SURGICAL HISTORY Hx Surgeries: No - ANESTHESIA Hx Anesthesia: No Meds Allergies/Adverse Reactions: Allergies Allergy/AdvReac Type Severity Reaction Status Date / Time No Known Allergies Allergy Verified 11/11/17 13:45 - Medications Medications: Current Medications Acetaminophen (Tylenol 325mg Tab) 650 mg PO Q4 PRN PRN Reason: Fever >100.4 F Albuterol/Ipratropium (Duoneb 3 Mg/0.5 Mg (3 Ml) Ud) 3 ml INH RQ4 [facility] Last Admin: 01/16/18 13:25 Dose: 3 ml Ascorbic Acid (Vitamin C 500 Mg Tab) 250 mg PO DAILY [facility] Last Admin: 01/16/18 09:55 Dose: 250 mg Aspirin (Aspirin Chewable) 81 mg PO DAILY [facility] Last Admin: 01/16/18 09:54 Dose: 81 mg Collagenase (Santyl) 0 gm TOP DAILY [facility] Last Admin: 01/16/18 09:55 Dose: 1 applic Diltiazem HCl (Cardizem) 30 mg PO Q6 [facility] Last Admin: 01/16/18 11:29 Dose: 30 mg Furosemide (Lasix) 40 mg PO DAILY [facility] Last Admin: 01/16/18 09:55 Dose: 40 mg Heparin Sodium (Porcine) (Heparin) 5,000 units SC Q8 [facility] Last Admin: 01/16/18 14:57 Dose: 5,000 units Piperacillin Sod/Tazobactam (Sod 3.375 gm/ Sodium Chloride) 100 mls @ 200 mls/ hr IVPB Q8H [facility] PRN Reason: Protocol Last Admin: 01/16/18 11:29 Dose: 200 mls/hr Vancomycin/Sodium Chloride (Vancomycin 1 Gm/Ns 200 Ml) 1 gm in 200 mls @ 166.7 mls/hr IVPB Q12H [facility] PRN Reason: Protocol Stop: 01/20/18 15:01 Last Admin: 01/16/18 14:58 Dose: 166.7 mls/hr Multivitamins/Vitamin C (Multi-Delyn Liquid) 5 ml PO DAILY [facility] Last Admin: 01/16/18 09:54 Dose: 5 ml Pantoprazole Sodium (Protonix Inj) 40 mg IVP DAILY [facility] Last Admin: 01/16/18 09:54 Dose: 40 mg Zinc Sulfate (Zinc Sulfate 220 Mg Cap) 220 mg PO DAILY [facility] Last Admin: 01/16/18 09:55 Dose: 220 mg Results - Vital Signs Recent Vital Signs: Last Vital Signs Temp 98.5 F 01/16/18 12:00 Pulse 99 H 01/16/18 13:29 Resp 17 01/16/18 13:29 BP 119/76 01/16/18 13:29 Pulse Ox 95 01/16/18 13:29 - Labs Result Diagrams: 01/16/18 04:07 01/16/18 04:07 Labs: Laboratory Results - last 24 hr 01/16/18 01/16/18 01/16/18 04:07 04:07 04:07 WBC 6.0 D RBC 2.74 L Hgb 8.2 L Hct 26.1 L MCV 95.4 H MCH 29.7 MCHC 31.2 L RDW 19.0 H Plt Count 123 L D MPV 8.7 Neut % (Auto) 74.3 Lymph % (Auto) 19.4 L [place] % (Auto) 5.6 Eos % (Auto) 0.4 Baso % (Auto) 0.3 Neut # (Auto) 4.4 Lymph # (Auto) 1.2 [place] # (Auto) 0.3 Eos # (Auto) 0.0 Baso # (Auto) 0.0 Puncture Site pCO2 pO2 HCO3 ABG pH ABG Total CO2 ABG O2 Saturation ABG Base Excess ABG Hemoglobin ABG Carboxyhemoglobin POC ABG HHb (Measured) ABG Methemoglobin Suraj Test A-a O2 Difference Respiratory Index Hgb O2 Saturation Vent Mode Mechanical Rate FiO2 Tidal Volume PEEP Sodium 148 Potassium 3.8 Chloride 105 Carbon Dioxide 37 H Anion Gap 10 BUN 31 H Creatinine 0.5 L Est GFR ( Amer) > 60 Est GFR (Non-Af Amer) > 60 Random Glucose 94 Calcium 7.7 L Total Bilirubin 0.5 AST 25 ALT 24 Alkaline Phosphatase 71 Total Protein 6.0 L Albumin 2.2 L D Globulin 3.8 Albumin/Globulin Ratio 0.6 L Vancomycin Peak Vancomycin Trough 23.7 H 01/16/18 01/16/18 04:30 06:17 WBC RBC Hgb Hct MCV MCH MCHC RDW Plt Count MPV Neut % (Auto) Lymph % (Auto) [place] % (Auto) Eos % (Auto) Baso % (Auto) Neut # (Auto) Lymph # (Auto) [place] # (Auto) Eos # (Auto) Baso # (Auto) Puncture Site Rr pCO2 52 H pO2 63 L HCO3 37.8 H ABG pH 7.51 H ABG Total CO2 43.1 H ABG O2 Saturation 95.1 ABG Base Excess 16.6 H ABG Hemoglobin 9.0 L ABG Carboxyhemoglobin 2.6 H POC ABG HHb (Measured) 4.7 ABG Methemoglobin 1.0 Suraj Test Pos A-a O2 Difference 229.0 Respiratory Index 3.6 Hgb O2 Saturation 91.8 L Vent Mode Prvc Mechanical Rate 16 FiO2 50.0 Tidal Volume 450 PEEP 5 Sodium Potassium Chloride Carbon Dioxide Anion Gap BUN Creatinine Est GFR ( Amer) Est GFR (Non-Af Amer) Random Glucose Calcium Total Bilirubin AST ALT Alkaline Phosphatase Total Protein Albumin Globulin Albumin/Globulin Ratio Vancomycin Peak 25.8 L Vancomycin Trough
--- NOTE | 2018-01-16 21:18 | CP.PCM.PN ---
Subjective - Date & Time of Evaluation Date of Evaluation: 01/16/18 Objective - Vital Signs/Intake and Output Vital Signs (last 24 hours): Temp Pulse Resp BP Pulse Ox 98.0 F 94 H 16 114/72 93 L 01/16/18 16:00 01/16/18 19:00 01/16/18 19:00 01/16/18 17:28 01/16/18 19:00 Intake and Output: 01/16/18 01/17/18 18:59 06:59 Intake Total 1470 50 Output Total 500 30 Balance 970 20 - Medications Medications: Current Medications Acetaminophen (Tylenol 325mg Tab) 650 mg PO Q4 PRN PRN Reason: Fever >100.4 F Albuterol/Ipratropium (Duoneb 3 Mg/0.5 Mg (3 Ml) Ud) 3 ml INH RQ4 [facility] Last Admin: 01/16/18 19:09 Dose: 3 ml Ascorbic Acid (Vitamin C 500 Mg Tab) 250 mg PO DAILY [facility] Last Admin: 01/16/18 09:55 Dose: 250 mg Aspirin (Aspirin Chewable) 81 mg PO DAILY [facility] Last Admin: 01/16/18 09:54 Dose: 81 mg Collagenase (Santyl) 0 gm TOP DAILY [facility] Last Admin: 01/16/18 09:55 Dose: 1 applic Diltiazem HCl (Cardizem) 30 mg PO Q6 [facility] Last Admin: 01/16/18 17:41 Dose: 30 mg Furosemide (Lasix) 40 mg PO DAILY [facility] Last Admin: 01/16/18 09:55 Dose: 40 mg Heparin Sodium (Porcine) (Heparin) 5,000 units SC Q8 [facility] Last Admin: 01/16/18 14:57 Dose: 5,000 units Piperacillin Sod/Tazobactam (Sod 3.375 gm/ Sodium Chloride) 100 mls @ 200 mls/ hr IVPB Q8H [facility] PRN Reason: Protocol Last Admin: 01/16/18 20:35 Dose: 200 mls/hr Vancomycin/Sodium Chloride (Vancomycin 1 Gm/Ns 200 Ml) 1 gm in 200 mls @ 166.7 mls/hr IVPB Q12H [facility] PRN Reason: Protocol Stop: 01/20/18 15:01 Last Admin: 01/16/18 14:58 Dose: 166.7 mls/hr Multivitamins/Vitamin C (Multi-Delyn Liquid) 5 ml PO DAILY [facility] Last Admin: 01/16/18 09:54 Dose: 5 ml Pantoprazole Sodium (Protonix Inj) 40 mg IVP DAILY [facility] Last Admin: 01/16/18 09:54 Dose: 40 mg Zinc Sulfate (Zinc Sulfate 220 Mg Cap) 220 mg PO DAILY [facility] Last Admin: 01/16/18 09:55 Dose: 220 mg - Labs Labs: 01/16/18 04:07 01/16/18 04:07 PT 16.7 SECONDS (9.7-12.2) H 01/15/18 02:05 INR 1.5 01/15/18 02:05 APTT 37 SECONDS (21-34) H 01/15/18 02:05 Assessment and Plan - Assessment and Plan (Free Text) Plan: Patient is on the trach and the vent Continue Zosyn and vancomycin Continue GI and DVT prophylaxis Follow-up with the consultations cardiology pulmonary follow-up with the police judge Follow-up with the same medications Follow-up with the GI bleeding Discharge planning to the LTAC Discussed with the staff on the duty about the long-term planning poor prognosis
--- NOTE | 2018-01-16 23:46 | CP.PCM.CON ---
Past Patient History - Past Medical History & Family History Past Medical History?: Yes - Past Social History Smoking Status: Unknown If Ever Smoked - CARDIAC Hx Congestive Heart Failure: Yes Hx Hypertension: Yes - PULMONARY Hx Asthma: Yes Hx Chronic Obstructive Pulmonary Disease (COPD): Yes - NEUROLOGICAL Hx Neurological Disorder: Yes Hx Dizziness: Yes - HEENT Hx HEENT Problems: No - RENAL Hx Chronic Kidney Disease: No - ENDOCRINE/METABOLIC Hx Diabetes Mellitus Type 2: Yes - HEMATOLOGICAL/ONCOLOGICAL Hx Blood Disorders: No - INTEGUMENTARY Hx Dermatological Problems: No - MUSCULOSKELETAL/RHEUMATOLOGICAL Hx Falls: Yes - GASTROINTESTINAL Hx Gastrointestinal Disorders: No - GENITOURINARY/GYNECOLOGICAL Hx Genitourinary Disorders: No - PSYCHIATRIC Hx Substance Use: No - SURGICAL HISTORY Hx Surgeries: No - ANESTHESIA Hx Anesthesia: No Meds Allergies/Adverse Reactions: Allergies Allergy/AdvReac Type Severity Reaction Status Date / Time No Known Allergies Allergy Verified 11/11/17 13:45 - Medications Medications: Current Medications Acetaminophen (Tylenol 325mg Tab) 650 mg PO Q4 PRN PRN Reason: Fever >100.4 F Albuterol/Ipratropium (Duoneb 3 Mg/0.5 Mg (3 Ml) Ud) 3 ml INH RQ4 [facility] Last Admin: 01/16/18 19:09 Dose: 3 ml Ascorbic Acid (Vitamin C 500 Mg Tab) 250 mg PO DAILY [facility] Last Admin: 01/16/18 09:55 Dose: 250 mg Aspirin (Aspirin Chewable) 81 mg PO DAILY [facility] Last Admin: 01/16/18 09:54 Dose: 81 mg Collagenase (Santyl) 0 gm TOP DAILY [facility] Last Admin: 01/16/18 09:55 Dose: 1 applic Diltiazem HCl (Cardizem) 30 mg PO Q6 [facility] Last Admin: 01/16/18 23:00 Dose: 30 mg Furosemide (Lasix) 40 mg PO DAILY [facility] Last Admin: 01/16/18 09:55 Dose: 40 mg Heparin Sodium (Porcine) (Heparin) 5,000 units SC Q8 [facility] Last Admin: 01/16/18 22:45 Dose: 5,000 units Piperacillin Sod/Tazobactam (Sod 3.375 gm/ Sodium Chloride) 100 mls @ 200 mls/ hr IVPB Q8H [facility] PRN Reason: Protocol Last Admin: 01/16/18 20:35 Dose: 200 mls/hr Vancomycin/Sodium Chloride (Vancomycin 1 Gm/Ns 200 Ml) 1 gm in 200 mls @ 166.7 mls/hr IVPB Q12H [facility] PRN Reason: Protocol Stop: 01/20/18 15:01 Last Admin: 01/16/18 14:58 Dose: 166.7 mls/hr Multivitamins/Vitamin C (Multi-Delyn Liquid) 5 ml PO DAILY [facility] Last Admin: 01/16/18 09:54 Dose: 5 ml Pantoprazole Sodium (Protonix Inj) 40 mg IVP DAILY [facility] Last Admin: 01/16/18 09:54 Dose: 40 mg Zinc Sulfate (Zinc Sulfate 220 Mg Cap) 220 mg PO DAILY [facility] Last Admin: 01/16/18 09:55 Dose: 220 mg Results - Vital Signs Recent Vital Signs: Last Vital Signs Temp 98 F 01/16/18 20:00 Pulse 93 H 01/16/18 23:00 Resp 19 01/16/18 23:00 BP 128/74 01/16/18 23:00 Pulse Ox 98 01/16/18 23:00 - Labs Result Diagrams: 01/16/18 04:07 01/16/18 04:07 Labs: Laboratory Results - last 24 hr 01/16/18 01/16/18 01/16/18 04:07 04:07 04:07 WBC 6.0 D RBC 2.74 L Hgb 8.2 L Hct 26.1 L MCV 95.4 H MCH 29.7 MCHC 31.2 L RDW 19.0 H Plt Count 123 L D MPV 8.7 Neut % (Auto) 74.3 Lymph % (Auto) 19.4 L [place] % (Auto) 5.6 Eos % (Auto) 0.4 Baso % (Auto) 0.3 Neut # (Auto) 4.4 Lymph # (Auto) 1.2 [place] # (Auto) 0.3 Eos # (Auto) 0.0 Baso # (Auto) 0.0 Puncture Site pCO2 pO2 HCO3 ABG pH ABG Total CO2 ABG O2 Saturation ABG Base Excess ABG Hemoglobin ABG Carboxyhemoglobin POC ABG HHb (Measured) ABG Methemoglobin Suraj Test A-a O2 Difference Respiratory Index Hgb O2 Saturation Vent Mode Mechanical Rate FiO2 Tidal Volume PEEP Sodium 148 Potassium 3.8 Chloride 105 Carbon Dioxide 37 H Anion Gap 10 BUN 31 H Creatinine 0.5 L Est GFR ( Amer) > 60 Est GFR (Non-Af Amer) > 60 Random Glucose 94 Calcium 7.7 L Total Bilirubin 0.5 AST 25 ALT 24 Alkaline Phosphatase 71 Total Protein 6.0 L Albumin 2.2 L D Globulin 3.8 Albumin/Globulin Ratio 0.6 L Vancomycin Peak Vancomycin Trough 23.7 H 01/16/18 01/16/18 04:30 06:17 WBC RBC Hgb Hct MCV MCH MCHC RDW Plt Count MPV Neut % (Auto) Lymph % (Auto) [place] % (Auto) Eos % (Auto) Baso % (Auto) Neut # (Auto) Lymph # (Auto) [place] # (Auto) Eos # (Auto) Baso # (Auto) Puncture Site Rr pCO2 52 H pO2 63 L HCO3 37.8 H ABG pH 7.51 H ABG Total CO2 43.1 H ABG O2 Saturation 95.1 ABG Base Excess 16.6 H ABG Hemoglobin 9.0 L ABG Carboxyhemoglobin 2.6 H POC ABG HHb (Measured) 4.7 ABG Methemoglobin 1.0 Suraj Test Pos A-a O2 Difference 229.0 Respiratory Index 3.6 Hgb O2 Saturation 91.8 L Vent Mode Prvc Mechanical Rate 16 FiO2 50.0 Tidal Volume 450 PEEP 5 Sodium Potassium Chloride Carbon Dioxide Anion Gap BUN Creatinine Est GFR ( Amer) Est GFR (Non-Af Amer) Random Glucose Calcium Total Bilirubin AST ALT Alkaline Phosphatase Total Protein Albumin Globulin Albumin/Globulin Ratio Vancomycin Peak 25.8 L Vancomycin Trough
[2018-01-17] MEDS: Albuterol-Ipratrop 3 mg / 0.5 (3 ml) UD INH SCH ×6 (03:08→23:38)
[2018-01-17] MEDS: Vancomycin 1 gm/NS 200 ml 1 GM/200 ML BAG IVPB SCH ×2 (03:15→14:07)
[2018-01-17] MEDS: Piperacillin/Tazobact 3.375 GM in Sodium Chloride 100 ML IVPB SCH ×3 (05:30→21:30)
[2018-01-17 06:24] LABS: BASO % 0.2 % (0.0-2.0); EOS % 0.5 % (0.0-4.0); HEMOGLOBIN 7.9 g/dL (12.0-18.0); LYMPH # 0.6 K/uL (1.0-4.3); LYMPH % 11.2 % (20.0-40.0); MEAN CELL VOLUME 96.1 fL (80.0-94.0); MEAN CORPUSCULAR HEMOGLOBIN 30.1 pg (27.0-31.0); MEAN CORPUSCULAR HGB CONC 31.3 g/dL (33.0-37.0); MEAN PLATELET VOLUME 8.8 fL (7.2-11.7); MONO # 0.4 K/uL (0.0-0.8); MONO % 6.7 % (0.0-10.0); NEUT # 4.5 K/uL (1.8-7.0); NEUT % 81.4 % (50.0-75.0); NRBC % 0.1 % (0.0-2.0); RBC 2.63 Mil/uL (4.40-5.90); RED CELL DISTRIBUTION WIDTH 19.3 % (11.5-14.5); WHITE BLOOD COUNT 5.5 K/uL (4.8-10.8)
[2018-01-17 06:39] LABS: ALB/GLOB RATIO 0.7 (1.0-2.1); ALBUMIN 2.4 g/dL (3.5-5.0); ALT/SGPT 24 U/L (21-72); AST/SGOT 29 U/L (17-59); BLOOD UREA NITROGEN 20 mg/dL (9-20); GFR AFRICAN-AMERICAN > 60; GFR NON-AFRICAN AMERICAN > 60
[2018-01-17] MEDS ORDERED: Potassium Chloride 20 mEq/15 ml LIQ UD PEG ONE ×3 (08:00→11:00)
--- NOTE | 2018-01-17 09:00 | RAD ---
HISTORY: VENTED COMPARISON: Chest radiograph dated 01/16/2018. FINDINGS: LUNGS: Dense left upper lobe consolidation as well as right upper and midlung patchy infiltrates, unchanged. Emphysematous changes. PLEURA: No significant pleural effusion identified, no pneumothorax apparent. CARDIOVASCULAR: Atherosclerotic aortic calcifications. Cardiomediastinal silhouette within normal limits. OSSEOUS STRUCTURES: Unchanged. VISUALIZED UPPER ABDOMEN: Normal. OTHER FINDINGS: Tracheostomy, unchanged. IMPRESSION: No significant interval change in dense left upper lobe consolidation or patchy right lung infiltrates.
--- NOTE | 2018-01-17 09:32 | CP.PCM.PN ---
Subjective - Date & Time of Evaluation Date of Evaluation: 01/17/18 Time of Evaluation: 09:32 Objective - Vital Signs/Intake and Output Vital Signs (last 24 hours): Temp Pulse Resp BP Pulse Ox 98.6 F 90 16 140/75 97 01/17/18 08:00 01/17/18 08:00 01/17/18 08:00 01/17/18 08:00 01/17/18 08:00 Intake and Output: 01/17/18 01/17/18 06:59 18:59 Intake Total 1260 103 Output Total 730 30 Balance 530 73 - Medications Medications: Current Medications Acetaminophen (Tylenol 325mg Tab) 650 mg PO Q4 PRN PRN Reason: Fever >100.4 F Albuterol/Ipratropium (Duoneb 3 Mg/0.5 Mg (3 Ml) Ud) 3 ml INH RQ4 [facility] Last Admin: 01/17/18 07:15 Dose: 3 ml Ascorbic Acid (Vitamin C 500 Mg Tab) 250 mg PO DAILY [facility] Last Admin: 01/16/18 09:55 Dose: 250 mg Aspirin (Aspirin Chewable) 81 mg PO DAILY [facility] Last Admin: 01/16/18 09:54 Dose: 81 mg Collagenase (Santyl) 0 gm TOP DAILY [facility] Last Admin: 01/16/18 09:55 Dose: 1 applic Diltiazem HCl (Cardizem) 30 mg PO Q6 [facility] Last Admin: 01/17/18 05:35 Dose: 30 mg Furosemide (Lasix) 40 mg PO DAILY [facility] Last Admin: 01/16/18 09:55 Dose: 40 mg Heparin Sodium (Porcine) (Heparin) 5,000 units SC Q8 [facility] Last Admin: 01/17/18 05:35 Dose: 5,000 units Piperacillin Sod/Tazobactam (Sod 3.375 gm/ Sodium Chloride) 100 mls @ 200 mls/ hr IVPB Q8H [facility] PRN Reason: Protocol Last Admin: 01/17/18 05:30 Dose: 200 mls/hr Vancomycin/Sodium Chloride (Vancomycin 1 Gm/Ns 200 Ml) 1 gm in 200 mls @ 166.7 mls/hr IVPB Q12H [facility] PRN Reason: Protocol Stop: 01/20/18 15:01 Last Admin: 01/17/18 03:15 Dose: 166.7 mls/hr Multivitamins/Vitamin C (Multi-Delyn Liquid) 5 ml PO DAILY [facility] Last Admin: 01/16/18 09:54 Dose: 5 ml Pantoprazole Sodium (Protonix Inj) 40 mg IVP DAILY [facility] Last Admin: 01/16/18 09:54 Dose: 40 mg Potassium Chloride (Potassium Chloride Oral Soln) 20 meq PEG ONCE ONE Stop: 01/17/18 10:01 Potassium Chloride (Potassium Chloride Oral Soln) 20 meq PEG ONCE ONE Stop: 01/17/18 11:01 Zinc Sulfate (Zinc Sulfate 220 Mg Cap) 220 mg PO DAILY [facility] Last Admin: 01/16/18 09:55 Dose: 220 mg - Labs Labs: 01/17/18 06:19 01/17/18 06:17 PT 16.7 SECONDS (9.7-12.2) H 01/15/18 02:05 INR 1.5 01/15/18 02:05 APTT 37 SECONDS (21-34) H 01/15/18 02:05
[2018-01-17] MEDS: Multiple Vitamins Oral Solution PO SCH (10:02)
[2018-01-17] MEDS: Collagenase 250 Units/gm Ointment(30 gm) TOP SCH (10:04)
--- NOTE | 2018-01-17 11:05 | CP.PCM.CON ---
History of Present Illness - History of Present Illness History of Present Illness: Paliative consult requested by Dr. Parks for goals of care discussion Patient is 72 years old male admitted from [facility] with the low O2 saturation and shortness of breath. After suctioning at ED patient's condition has improved. Patient has known history of laryngeal cancer and tracheostomy and PEG in place. The CAT scan of the chest was significant for mets versus TB versus fungal infection. Infectious disease on board. Zosyn and Vanco IV on board. Patient admitted to ICU for further care. WBC 5.5, hemoglobin 7.9 down from 8.2, abnormal ABGs, K2.9 and is being replaced , albumin 2.4. The sputum cultures and sensitivities positive for Pseudomonas. Past medical history, laryngeal CA, tracheostomy, PEG, CHF, COPD, asthma Social history, [facility] long[facility], , denies having family members, friend Ghulam Dickson is a supervisor contact lens but his phone number is not working Family history, denies Review of Systems - Constitutional Constitutional: Weakness - EENT Eyes: absent: As Per HPI, Blind Spots, Blurred Vision, Change in Vision, Decreased Night Vision, Diplopia, Discharge, Dry Eye, Exophthalmos, Floaters, Irritation, Itchy Eyes, Loss of Peripheral Vision, Pain, Photophobia, Requires Corrective Lenses, Sees Flashes, Spots in Vision, Tunnel Vision, Other Visual Disturbances, Loss of Vision, Other Ears: absent: As Per HPI, Decreased Hearing, Ear Discharge, Ear Pain, Tinnitus, Abnormal Hearing, Disequilibrium, Dizziness, Other Nose/Mouth/Throat: Change in Voice, Dysphagia Additional comments: Tracheostomy - Cardiovascular Cardiovascular: Dyspnea on Exertion - Respiratory Respiratory: Dyspnea on Exertion, Chest Congestion - Gastrointestinal Gastrointestinal: Dysphagia Additional comments: PEG - Genitourinary Genitourinary: Urinary Incontinence - Musculoskeletal Musculoskeletal: Atrophy, Deformity, Joint Swelling, Limited Range of Motion, Muscle Weakness, Stiffness - Integumentary Integumentary: Change in Nails, Dry Skin, Sores, Wounds - Neurological Neurological: Focal Weakness - Psychiatric Psychiatric: absent: As Per HPI, Abnormal Sleep Pattern, Anhedonia, Anxiety, Auditory Hallucinations, Behavioral Changes, Change in Appetite, Change in Libido, Confusion, Depression, Difficulty Concentrating, Hallucinations, Homicidal Ideation, Hopelessness, Irritability, Memory Loss, Mood Swings, Panic Attacks, Paranoia, Suicidal Ideation, Visual Hallucinations, Tactile Hallucinations, Other - Endocrine Endocrine: absent: As Per HPI, Change in Body Appearance, Change in Libido, Cold Intolorance, Deepening of Voice, Excessive Sweating, Fatigue, Flushing, Heat Intolorance, Increase in Ring/Shoe/Hat Size, Palpitations, Polydipsia, Polyphagia, Polyuria, Other - Hematologic/Lymphatic Hematologic: absent: As Per HPI, Easy Bleeding, Easy Bruising, Lymphadenopathy, Other Past Patient History - Past Medical History & Family History Past Medical History?: Yes - Past Social History Smoking Status: Unknown If Ever Smoked - CARDIAC Hx Congestive Heart Failure: Yes Hx Hypertension: Yes - PULMONARY Hx Asthma: Yes Hx Chronic Obstructive Pulmonary Disease (COPD): Yes - NEUROLOGICAL Hx Neurological Disorder: Yes Hx Dizziness: Yes - HEENT Hx HEENT Problems: No - RENAL Hx Chronic Kidney Disease: No - ENDOCRINE/METABOLIC Hx Diabetes Mellitus Type 2: Yes - HEMATOLOGICAL/ONCOLOGICAL Hx Blood Disorders: No - INTEGUMENTARY Hx Dermatological Problems: No - MUSCULOSKELETAL/RHEUMATOLOGICAL Hx Falls: Yes - GASTROINTESTINAL Hx Gastrointestinal Disorders: No - GENITOURINARY/GYNECOLOGICAL Hx Genitourinary Disorders: No - PSYCHIATRIC Hx Substance Use: No - SURGICAL HISTORY Hx Surgeries: No - ANESTHESIA Hx Anesthesia: No Meds Allergies/Adverse Reactions: Allergies Allergy/AdvReac Type Severity Reaction Status Date / Time No Known Allergies Allergy Verified 11/11/17 13:45 - Medications Medications: Current Medications Acetaminophen (Tylenol 325mg Tab) 650 mg PO Q4 PRN PRN Reason: Fever >100.4 F Albuterol/Ipratropium (Duoneb 3 Mg/0.5 Mg (3 Ml) Ud) 3 ml INH RQ4 [facility] Last Admin: 01/17/18 07:15 Dose: 3 ml Ascorbic Acid (Vitamin C 500 Mg Tab) 250 mg PO DAILY [facility] Last Admin: 01/17/18 10:02 Dose: 250 mg Aspirin (Aspirin Chewable) 81 mg PO DAILY [facility] Last Admin: 01/17/18 10:03 Dose: 81 mg Collagenase (Santyl) 0 gm TOP DAILY [facility] Last Admin: 01/17/18 10:04 Dose: 1 applic Diltiazem HCl (Cardizem) 30 mg PO Q6 [facility] Last Admin: 01/17/18 05:35 Dose: 30 mg Furosemide (Lasix) 40 mg PO DAILY [facility] Last Admin: 01/17/18 10:03 Dose: 40 mg Heparin Sodium (Porcine) (Heparin) 5,000 units SC Q8 [facility] Last Admin: 01/17/18 05:35 Dose: 5,000 units Piperacillin Sod/Tazobactam (Sod 3.375 gm/ Sodium Chloride) 100 mls @ 200 mls/ hr IVPB Q8H [facility]UANA PRN Reason: Protocol Last Admin: 01/17/18 05:30 Dose: 200 mls/hr Vancomycin/Sodium Chloride (Vancomycin 1 Gm/Ns 200 Ml) 1 gm in 200 mls @ 166.7 mls/hr IVPB Q12H [facility]UANA PRN Reason: Protocol Stop: 01/20/18 15:01 Last Admin: 01/17/18 03:15 Dose: 166.7 mls/hr Multivitamins/Vitamin C (Multi-Delyn Liquid) 5 ml PO DAILY [facility] Last Admin: 01/17/18 10:02 Dose: 5 ml Pantoprazole Sodium (Protonix Inj) 40 mg IVP DAILY [facility] Last Admin: 01/17/18 10:02 Dose: 40 mg Potassium Chloride (Potassium Chloride Oral Soln) 20 meq PEG ONCE ONE Stop: 01/17/18 11:01 Zinc Sulfate (Zinc Sulfate 220 Mg Cap) 220 mg PO DAILY [facility] Last Admin: 01/17/18 10:02 Dose: 220 mg Physical Exam - Constitutional Appears: No Acute Distress, Chronically Ill - Head Exam Head Exam: ATRAUMATIC, NORMAL INSPECTION, NORMOCEPHALIC - Eye Exam Eye Exam: EOMI, Normal appearance, PERRL Pupil Exam: NORMAL ACCOMODATION - ENT Exam ENT Exam: Mucous Membranes Dry Additional comments: Tracheostomy in situ - Neck Exam Additional comments: Tracheostomy in site - Respiratory Exam Respiratory Exam: Decreased Breath Sounds Additional comments: 50% O2 via trach - Cardiovascular Exam Cardiovascular Exam: Tachycardia, REGULAR RHYTHM - GI/Abdominal Exam GI & Abdominal Exam: Normal Bowel Sounds Additional comments: PEG in situ - Rectal Exam Rectal Exam: Deferred - Exam Exam: NORMAL INSPECTION - Extremities Exam Additional comments: Limited range of motion, poor capillary refill, tose discolored - Back Exam Back exam: NORMAL INSPECTION - Neurological Exam Neurological exam: Alert, Oriented x3 - Psychiatric Exam Psychiatric exam: Normal Affect, Normal Mood - Skin Skin Exam: Dry, Pallor Results - Vital Signs Recent Vital Signs: Last Vital Signs Temp 98.6 F 01/17/18 08:00 Pulse 90 01/17/18 08:00 Resp 16 01/17/18 08:00 BP 126/79 01/17/18 10:03 Pulse Ox 97 01/17/18 08:00 - Labs Result Diagrams: 01/17/18 06:19 01/17/18 06:17 Labs: Laboratory Results - last 24 hr 01/17/18 01/17/18 06:17 06:19 WBC 5.5 RBC 2.63 L Hgb 7.9 L Hct 25.3 L MCV 96.1 H MCH 30.1 MCHC 31.3 L RDW 19.3 H Plt Count 127 L MPV 8.8 Neut % (Auto) 81.4 H Lymph % (Auto) 11.2 L [place] % (Auto) 6.7 Eos % (Auto) 0.5 Baso % (Auto) 0.2 Neut # (Auto) 4.5 Lymph # (Auto) 0.6 L [place] # (Auto) 0.4 Eos # (Auto) 0.0 Baso # (Auto) 0.0 Sodium 151 H Potassium 2.9 L Chloride 105 Carbon Dioxide 38 H Anion Gap 11 BUN 20 Creatinine 0.5 L Est GFR ( Amer) > 60 Est GFR (Non-Af Amer) > 60 Random Glucose 105 Calcium 8.0 L Total Bilirubin 0.4 AST 29 ALT 24 Alkaline Phosphatase 76 Total Protein 6.0 L Albumin 2.4 L Globulin 3.6 Albumin/Globulin Ratio 0.7 L Assessment & Plan - Assessment and Plan (Free Text) Assessment: Palliative consult Full code. There is no advanced directive in the chart. PPS 10% I reviewed medical records, I'll get diagnostic studies, examined and interviewed patient in the bed, Patient is alert, orientated, makes eye contact, able to follow simple commands , states understanding to the posed questions, and is able to moth his words. Speaking is difficult due do to tracheostomy presents. Patient looks chronically ill. Skin is dry. Limited range of motion. Patient needs max assist with repositioning. Blood sounds diminished, there is secretion from the trach. Abdomen is flat, skiny, PEG in place. Incontinent of bowel and bladder. Blood pressure 140/75, HR 90. Afebrile. Goals of care discussed with patient. Patient is however of being in the hospital. Patient is aware of the presence of trach and PEG. She denies having close family members. Patient conceived this [facility] she is calm and wishes to return there. I reviewed his clinical presentation, and related it to the history of laryngeal cancer. Patient stated understanding. I at least said that he is wishes for end-of-life care. I berhane concerns regarding quality of life issues. Patient agreed. Patient was able to gesture to me that he wouldn't want chest compressions to be performed in case his condition worsens and is intermittent. I asked would be the person to call in case of emergency, and patient pointed to name of his friend Mr. Ghulam Dickson. I asked for permission to invite Mr. Parmar to a family meeting. Patient agreed. I further discussed with the patient if he would like to sign the paper stating DNR, patient agreed, but was unable to hold the pain due to weakness and limited motion of his right hand fingers. I informed patient I would invite his friend to a family meeting . He agreed The number provided for Mr. Parmar on the triad is not working number. I called twice and wasn't able to get trough. Impression * Chronically ill man with generalized weakness * Physical debility * Lack of family support * Lack of advanced care directive * End-of-life Suggestions * Assist with ADLs * Promote skin integrity * Aspiration precautions * Patient should be made DNR, to prevent him from further aggressive interventions if becomes imminent I will return to the patient and have one of the nurses weakness me gathering verbal consent from the patient for DNR status. We'll complete POL Thank you very much for this interesting consult
--- NOTE | 2018-01-17 11:12 | CP.CCUPN ---
<JackBlayneWhitman - Last Filed: 01/17/18 16:29> CCU Subjective - Physician Review Subjective (Free Text): 01/16/18 14:09 Patient seen and examined at bedside. Per nursing no acute events occurred overnight. 01/17/18 11:11 Patient seen and examined at bedside. Per nursing no acute events occurred overnight. Critical Care Time Spent (in minutes): 40 CCU Objective - Vital Signs / Intake & Output Vital Signs (Last 4 hours): Vital Signs Temp Pulse Resp BP Pulse Ox 01/17/18 10:03 126/79 01/17/18 08:00 98.6 F 90 16 140/75 97 Intake and Output (Last 8hrs): Intake & Output 01/16/18 01/17/18 01/17/18 22:59 06:59 14:59 Intake Total 610 900 103 Output Total 520 370 30 Balance 90 530 73 Weight 96 lb Intake: Intake, IV Amount 100 300 0 Left Antecubital 100 300 0 left AC 0 Oral 110 200 3 Tube Feeding 400 400 100 Output: Urine 520 370 30 Urethral (Echavarria) 520 370 30 Other: # Bowel Movements 0 0 - Physical Exam Head: Positive for: Atraumatic, Normocephalic Pupils: Positive for: PERRL Extroacular Muscles: Positive for: EOMI Conjunctiva: Positive for: Normal Mouth: Positive for: Moist Mucous Membranes Neck: Positive for: Other (trach in place) Cardiovascular: Positive for: Regular Rate and Rhythm, Normal S1, S2 Abdomen: Positive for: Normal Bowel Sounds Upper Extremity: Negative for: Cyanosis Neurological: Positive for: Speech Normal Skin: Positive for: Dry, Normal Color Psychiatric: Positive for: Alert, Normal Concentration - Medications Active Medications: Active Medications Generic Name Dose Route Start Last Admin Trade Name Freq PRN Reason Stop Dose Admin Acetaminophen 650 mg 01/15/18 04:15 Tylenol 325mg Tab PO Q4 PRN Fever >100.4 F Albuterol/Ipratropium 3 ml 01/15/18 16:00 01/17/18 07:15 Duoneb 3 Mg/0.5 Mg (3 Ml) Ud INH 3 ml RQ4 JUANA Administration Ascorbic Acid 250 mg 01/16/18 10:00 01/17/18 10:02 Vitamin C 500 Mg Tab PO 250 mg DAILY JUANA Administration Aspirin 81 mg 01/16/18 10:00 01/17/18 10:03 Aspirin Chewable PO 81 mg DAILY JUANA Administration Collagenase 0 gm 01/16/18 10:00 01/17/18 10:04 Santyl TOP 1 applic DAILY JUANA Administration Diltiazem HCl 30 mg 01/16/18 12:00 01/17/18 05:35 Cardizem PO 30 mg Q6 JUANA Administration Furosemide 40 mg 01/16/18 10:00 01/17/18 10:03 Lasix PO 40 mg DAILY [facility]NA Administration Heparin Sodium (Porcine) 5,000 units 01/15/18 06:00 01/17/18 05:35 Heparin SC 5,000 units Q8 JUANA Administration Piperacillin Sod/Tazobactam 100 mls @ 200 mls/hr 01/15/18 04:30 01/17/18 05: 30 Sod 3.375 gm/ Sodium Chloride IVPB 200 mls/hr Q8H [facility]UANA Administration Protocol Vancomycin/Sodium Chloride 1 gm in 200 mls @ 166.7 mls/hr 01/15/18 15:00 05/30 03:15 Vancomycin 1 Gm/Ns 200 Ml IVPB 01/20/18 15:01 166.7 mls/hr Q12H JUANA Administration Protocol Multivitamins/Vitamin C 5 ml 01/16/18 10:00 01/17/18 10:02 Multi-Delyn Liquid PO 5 ml DAILY [facility]NA Administration Pantoprazole Sodium 40 mg 01/15/18 11:00 01/17/18 10:02 Protonix Inj IVP 40 mg DAILY [facility]NA Administration Zinc Sulfate 220 mg 01/16/18 10:00 01/17/18 10:02 Zinc Sulfate 220 Mg Cap PO 220 mg DAILY [facility]NA Administration - Patient Studies Lab Studies: Microbiology Studies 01/15/18 04:00 Blood Culture - Preliminary Blood NO GROWTH AFTER 48 HOURS 01/15/18 04:30 Blood Culture - Preliminary Blood NO GROWTH AFTER 48 HOURS 01/15/18 10:40 Gram Stain - Final Sputum Sputum Culture - Final Pseudomonas Aeruginosa 01/15/18 09:00 MRSA Culture (Admit) - Final Nose MRSA NOT DETECTED 01/15/18 14:00 Urine Culture - Final Urine,Echavarria No Growth (<1,000 CFU/ML) Lab Studies 01/17/18 01/17/18 Range/Units 06:19 06:17 WBC 5.5 (4.8-10.8) K/uL RBC 2.63 L (4.40-5.90) Mil/uL Hgb 7.9 L (12.0-18.0) g/dL Hct 25.3 L (35.0-51.0) % MCV 96.1 H (80.0-94.0) fL MCH 30.1 (27.0-31.0) pg MCHC 31.3 L (33.0-37.0) g/dL RDW 19.3 H (11.5-14.5) % Plt Count 127 L (130-400) K/uL MPV 8.8 (7.2-11.7) fL Neut % (Auto) 81.4 H (50.0-75.0) % Lymph % (Auto) 11.2 L (20.0-40.0) % [place] % (Auto) 6.7 (0.0-10.0) % Eos % (Auto) 0.5 (0.0-4.0) % Baso % (Auto) 0.2 (0.0-2.0) % Neut # (Auto) 4.5 (1.8-7.0) K/uL Lymph # (Auto) 0.6 L (1.0-4.3) K/uL [place] # (Auto) 0.4 (0.0-0.8) K/uL Eos # (Auto) 0.0 (0.0-0.7) K/uL Baso # (Auto) 0.0 (0.0-0.2) K/uL Sodium 151 H (132-148) mmol/L Potassium 2.9 L (3.6-5.2) mmol/L Chloride 105 (98-107) mmol/L Carbon Dioxide 38 H (22-30) mmol/L Anion Gap 11 (10-20) BUN 20 (9-20) mg/dL Creatinine 0.5 L (0.8-1.5) mg/dL Est GFR ( Amer) > 60 Est GFR (Non-Af Amer) > 60 Random Glucose 105 (75-110) mg/dL Calcium 8.0 L (8.6-10.4) mg/dl Total Bilirubin 0.4 (0.2-1.3) mg/dL AST 29 (17-59) U/L ALT 24 (21-72) U/L Alkaline Phosphatase 76 (38-126) U/L Total Protein 6.0 L (6.3-8.3) g/dL Albumin 2.4 L (3.5-5.0) g/dL Globulin 3.6 (2.2-3.9) gm/dL Albumin/Globulin Ratio 0.7 L (1.0-2.1) Laboratory Results - last 24 hr 01/17/18 01/17/18 06:17 06:19 WBC 5.5 RBC 2.63 L Hgb 7.9 L Hct 25.3 L MCV 96.1 H MCH 30.1 MCHC 31.3 L RDW 19.3 H Plt Count 127 L MPV 8.8 Neut % (Auto) 81.4 H Lymph % (Auto) 11.2 L [place] % (Auto) 6.7 Eos % (Auto) 0.5 Baso % (Auto) 0.2 Neut # (Auto) 4.5 Lymph # (Auto) 0.6 L [place] # (Auto) 0.4 Eos # (Auto) 0.0 Baso # (Auto) 0.0 Sodium 151 H Potassium 2.9 L Chloride 105 Carbon Dioxide 38 H Anion Gap 11 BUN 20 Creatinine 0.5 L Est GFR ( Amer) > 60 Est GFR (Non-Af Amer) > 60 Random Glucose 105 Calcium 8.0 L Total Bilirubin 0.4 AST 29 ALT 24 Alkaline Phosphatase 76 Total Protein 6.0 L Albumin 2.4 L Globulin 3.6 Albumin/Globulin Ratio 0.7 L Review of Systems - Review of Systems Systems not reviewed;Unavailable: Acuity of Condition Assessment/Plan - Assessment and Plan (Free Text) Assessment: 72 year old male with a past medical history of laryngeal cancer, asthma, chf, copd, hypertension, Type 2 diabetes mellitus, s/p peg and trach. Patient was admitted to the ICU after desatting at the halfway. Plan: Pulmonary: COPD exacerbation, Pneumonia chest xray: dense consolidative opacifications seen within the left upper to mid lung zone suggestive for underlying infiltrate, hyperinflation suggestive for COPD and or emphysematous changes Chest ct:progressive consolidation noted throughout the left dre thorax predominantly within the left upper lobe, additional patchy multifocal nodular infiltrates noted bilaterally. 16mm right upper lobe and 14mm left upper lobe cavitary lesion/consolidations. cavitary malignant neoplasm vs. infection. Continue Vancomycin 1gm Q12 Continue Zosyn 3.375gm Q8 Duonebs 3ml INH Q4. FIO2:35% Cardiology: Cardizem 30 mg Q6 PO. PPX -Protonix 40mg Daily -Heparin 5000 units SC Q8. -IVF fluids NS @150mls/hr <Ja Jose - Last Filed: 01/17/18 16:32> CCU Objective - Vital Signs / Intake & Output Vital Signs (Last 4 hours): Vital Signs Pulse Resp BP Pulse Ox 01/17/18 15:00 100 H 16 130/73 98 01/17/18 14:01 95 H 16 132/78 99 01/17/18 14:00 96 H 20 99 01/17/18 13:00 97 H 25 H 120/65 99 Intake and Output (Last 8hrs): Intake & Output 01/17/18 01/17/18 01/17/18 06:59 14:59 22:59 Intake Total 900 930 250 Output Total 370 550 50 Balance 530 380 200 Weight 96 lb 96 lb Intake: Intake, IV Amount 300 300 200 Left Antecubital 300 300 200 Oral 200 230 Tube Feeding 400 400 50 Output: Urine 370 550 50 Urethral (Echavarria) 370 550 50 Other: # Bowel Movements 0 0 - Medications Active Medications: Active Medications Generic Name Dose Route Start Last Admin Trade Name Freq PRN Reason Stop Dose Admin Acetaminophen 650 mg 01/15/18 04:15 Tylenol 325mg Tab PO Q4 PRN Fever >100.4 F Albuterol/Ipratropium 3 ml 01/15/18 16:00 01/17/18 15:50 Duoneb 3 Mg/0.5 Mg (3 Ml) Ud INH 3 ml RQ4 JUANA Administration Ascorbic Acid 250 mg 01/16/18 10:00 01/17/18 10:02 Vitamin C 500 Mg Tab PO 250 mg DAILY [facility]NA Administration Aspirin 81 mg 01/16/18 10:00 01/17/18 10:03 Aspirin Chewable PO 81 mg DAILY [facility]NA Administration Collagenase 0 gm 01/16/18 10:00 01/17/18 10:04 Santyl TOP 1 applic DAILY [facility]NA Administration Diltiazem HCl 30 mg 01/16/18 12:00 01/17/18 12:11 Cardizem PO 30 mg Q6 JUANA Administration Furosemide 40 mg 01/16/18 10:00 01/17/18 10:03 Lasix PO 40 mg DAILY [facility]UNAA Administration Heparin Sodium (Porcine) 5,000 units 01/15/18 06:00 01/17/18 14:06 Heparin SC 5,000 units Q8 JUANA Administration Piperacillin Sod/Tazobactam 100 mls @ 200 mls/hr 01/15/18 04:30 01/17/18 12: 11 Sod 3.375 gm/ Sodium Chloride IVPB 200 mls/hr Q8H JUANA Administration Protocol Vancomycin/Sodium Chloride 1 gm in 200 mls @ 166.7 mls/hr 01/15/18 15:00 05/30 14:07 Vancomycin 1 Gm/Ns 200 Ml IVPB 01/20/18 15:01 166.7 mls/hr Q12H JUANA Administration Protocol Multivitamins/Vitamin C 5 ml 01/16/18 10:00 01/17/18 10:02 Multi-Delyn Liquid PO 5 ml DAILY [facility]NA Administration Pantoprazole Sodium 40 mg 01/15/18 11:00 01/17/18 10:02 Protonix Inj IVP 40 mg DAILY [facility]NA Administration Zinc Sulfate 220 mg 01/16/18 10:00 01/17/18 10:02 Zinc Sulfate 220 Mg Cap PO 220 mg DAILY [facility]NA Administration - Patient Studies Lab Studies: Microbiology Studies 01/15/18 04:00 Blood Culture - Preliminary Blood NO GROWTH AFTER 48 HOURS 01/15/18 04:30 Blood Culture - Preliminary Blood NO GROWTH AFTER 48 HOURS 01/15/18 10:40 Gram Stain - Final Sputum Sputum Culture - Final Pseudomonas Aeruginosa 01/15/18 09:00 MRSA Culture (Admit) - Final Nose MRSA NOT DETECTED Lab Studies 01/17/18 01/17/18 01/17/18 Range/Units 11:25 06:19 06:17 WBC 5.5 (4.8-10.8) K/uL RBC 2.63 L (4.40-5.90) Mil/uL Hgb 7.9 L (12.0-18.0) g/dL Hct 25.3 L (35.0-51.0) % MCV 96.1 H (80.0-94.0) fL MCH 30.1 (27.0-31.0) pg MCHC 31.3 L (33.0-37.0) g/dL RDW 19.3 H (11.5-14.5) % Plt Count 127 L (130-400) K/uL MPV 8.8 (7.2-11.7) fL Neut % (Auto) 81.4 H (50.0-75.0) % Lymph % (Auto) 11.2 L (20.0-40.0) % [place] % (Auto) 6.7 (0.0-10.0) % Eos % (Auto) 0.5 (0.0-4.0) % Baso % (Auto) 0.2 (0.0-2.0) % Neut # (Auto) 4.5 (1.8-7.0) K/uL Lymph # (Auto) 0.6 L (1.0-4.3) K/uL [place] # (Auto) 0.4 (0.0-0.8) K/uL Eos # (Auto) 0.0 (0.0-0.7) K/uL Baso # (Auto) 0.0 (0.0-0.2) K/uL Sodium 151 H (132-148) mmol/L Potassium 2.9 L (3.6-5.2) mmol/L Chloride 105 (98-107) mmol/L Carbon Dioxide 38 H (22-30) mmol/L Anion Gap 11 (10-20) BUN 20 (9-20) mg/dL Creatinine 0.5 L (0.8-1.5) mg/dL Est GFR ( Amer) > 60 Est GFR (Non-Af Amer) > 60 POC Glucose (mg/dL) 118 H (65-110) mg/dL Random Glucose 105 (75-110) mg/dL Calcium 8.0 L (8.6-10.4) mg/dl Total Bilirubin 0.4 (0.2-1.3) mg/dL AST 29 (17-59) U/L ALT 24 (21-72) U/L Alkaline Phosphatase 76 (38-126) U/L Total Protein 6.0 L (6.3-8.3) g/dL Albumin 2.4 L (3.5-5.0) g/dL Globulin 3.6 (2.2-3.9) gm/dL Albumin/Globulin Ratio 0.7 L (1.0-2.1) Laboratory Results - last 24 hr 01/17/18 01/17/18 01/17/18 06:17 06:19 11:25 WBC 5.5 RBC 2.63 L Hgb 7.9 L Hct 25.3 L MCV 96.1 H MCH 30.1 MCHC 31.3 L RDW 19.3 H Plt Count 127 L MPV 8.8 Neut % (Auto) 81.4 H Lymph % (Auto) 11.2 L [place] % (Auto) 6.7 Eos % (Auto) 0.5 Baso % (Auto) 0.2 Neut # (Auto) 4.5 Lymph # (Auto) 0.6 L [place] # (Auto) 0.4 Eos # (Auto) 0.0 Baso # (Auto) 0.0 Sodium 151 H Potassium 2.9 L Chloride 105 Carbon Dioxide 38 H Anion Gap 11 BUN 20 Creatinine 0.5 L Est GFR ( Amer) > 60 Est GFR (Non-Af Amer) > 60 POC Glucose (mg/dL) 118 H Random Glucose 105 Calcium 8.0 L Total Bilirubin 0.4 AST 29 ALT 24 Alkaline Phosphatase 76 Total Protein 6.0 L Albumin 2.4 L Globulin 3.6 Albumin/Globulin Ratio 0.7 L Attending/Attestation - Attestation I have personally seen and examined this patient.: Yes I have fully participated in the care of the patient.: Yes I have reviewed all pertinent clinical information: Yes Notes (Text): 01/17/18 16:32 patient seen and examined in the intensive care unit. Status post tracheostomy transferred from halfway for desaturation Being treated for pneumonia Continue IV antibiotics Follow-up culture and sensitivity Follow-up ABG Feeding
--- NOTE | 2018-01-17 17:20 | CP.PCM.PN ---
Subjective - Date & Time of Evaluation Date of Evaluation: 01/17/18 Objective - Vital Signs/Intake and Output Vital Signs (last 24 hours): Temp Pulse Resp BP Pulse Ox 98.6 F 94 H 18 131/67 100 01/17/18 16:00 01/17/18 17:00 01/17/18 17:00 01/17/18 17:00 01/17/18 17:00 Intake and Output: 01/17/18 01/17/18 06:59 18:59 Intake Total 1260 1280 Output Total 730 950 Balance 530 330 - Medications Medications: Current Medications Acetaminophen (Tylenol 325mg Tab) 650 mg PO Q4 PRN PRN Reason: Fever >100.4 F Albuterol/Ipratropium (Duoneb 3 Mg/0.5 Mg (3 Ml) Ud) 3 ml INH RQ4 [facility] Last Admin: 01/17/18 15:50 Dose: 3 ml Ascorbic Acid (Vitamin C 500 Mg Tab) 250 mg PO DAILY [facility] Last Admin: 01/17/18 10:02 Dose: 250 mg Aspirin (Aspirin Chewable) 81 mg PO DAILY [facility] Last Admin: 01/17/18 10:03 Dose: 81 mg Collagenase (Santyl) 0 gm TOP DAILY [facility] Last Admin: 01/17/18 10:04 Dose: 1 applic Diltiazem HCl (Cardizem) 30 mg PO Q6 [facility] Last Admin: 01/17/18 12:11 Dose: 30 mg Furosemide (Lasix) 40 mg PO DAILY [facility] Last Admin: 01/17/18 10:03 Dose: 40 mg Heparin Sodium (Porcine) (Heparin) 5,000 units SC Q8 [facility] Last Admin: 01/17/18 14:06 Dose: 5,000 units Piperacillin Sod/Tazobactam (Sod 3.375 gm/ Sodium Chloride) 100 mls @ 200 mls/ hr IVPB Q8H [facility] PRN Reason: Protocol Last Admin: 01/17/18 12:11 Dose: 200 mls/hr Vancomycin/Sodium Chloride (Vancomycin 1 Gm/Ns 200 Ml) 1 gm in 200 mls @ 166.7 mls/hr IVPB Q12H [facility] PRN Reason: Protocol Stop: 01/20/18 15:01 Last Admin: 01/17/18 14:07 Dose: 166.7 mls/hr Multivitamins/Vitamin C (Multi-Delyn Liquid) 5 ml PO DAILY [facility] Last Admin: 01/17/18 10:02 Dose: 5 ml Pantoprazole Sodium (Protonix Inj) 40 mg IVP DAILY [facility] Last Admin: 01/17/18 10:02 Dose: 40 mg Zinc Sulfate (Zinc Sulfate 220 Mg Cap) 220 mg PO DAILY [facility] Last Admin: 01/17/18 10:02 Dose: 220 mg - Labs Labs: 01/17/18 06:19 01/17/18 06:17 PT 16.7 SECONDS (9.7-12.2) H 01/15/18 02:05 INR 1.5 01/15/18 02:05 APTT 37 SECONDS (21-34) H 01/15/18 02:05 Assessment and Plan - Assessment and Plan (Free Text) Plan: Continue heparin continue Lasix continue Zosyn Continue vancomycin Continue consultation with the pulmonary follow-up with cardiology Follow-up with ID Septic workup Patient may need to go back to the [facility] Lab seen
--- NOTE | 2018-01-18 01:43 | CP.PCM.PN ---
Subjective - Date & Time of Evaluation Date of Evaluation: 01/17/18 Time of Evaluation: 09:30 - Subjective Subjective: Patient seen and evaluated Not in distress Objective - Vital Signs/Intake and Output Vital Signs (last 24 hours): Temp Pulse Resp BP Pulse Ox 98.5 F 92 H 19 140/86 100 01/18/18 00:00 01/18/18 01:00 01/18/18 01:00 01/18/18 01:00 01/18/18 01:00 Intake and Output: 01/17/18 01/18/18 18:59 06:59 Intake Total 1380 610 Output Total 950 Balance 430 610 - Medications Medications: Current Medications Acetaminophen (Tylenol 325mg Tab) 650 mg PO Q4 PRN PRN Reason: Fever >100.4 F Albuterol/Ipratropium (Duoneb 3 Mg/0.5 Mg (3 Ml) Ud) 3 ml INH RQ4 [facility] Last Admin: 01/17/18 23:38 Dose: 3 ml Ascorbic Acid (Vitamin C 500 Mg Tab) 250 mg PO DAILY [facility] Last Admin: 01/17/18 10:02 Dose: 250 mg Aspirin (Aspirin Chewable) 81 mg PO DAILY [facility] Last Admin: 01/17/18 10:03 Dose: 81 mg Collagenase (Santyl) 0 gm TOP DAILY [facility] Last Admin: 01/17/18 10:04 Dose: 1 applic Diltiazem HCl (Cardizem) 30 mg PO Q6 [facility] Last Admin: 01/17/18 23:00 Dose: 30 mg Furosemide (Lasix) 40 mg PO DAILY [facility] Last Admin: 01/17/18 10:03 Dose: 40 mg Heparin Sodium (Porcine) (Heparin) 5,000 units SC Q8 [facility] Last Admin: 01/17/18 21:30 Dose: 5,000 units Piperacillin Sod/Tazobactam (Sod 3.375 gm/ Sodium Chloride) 100 mls @ 200 mls/ hr IVPB Q8H [facility] PRN Reason: Protocol Last Admin: 01/17/18 21:30 Dose: 200 mls/hr Vancomycin/Sodium Chloride (Vancomycin 1 Gm/Ns 200 Ml) 1 gm in 200 mls @ 166.7 mls/hr IVPB Q12H [facility] PRN Reason: Protocol Stop: 01/20/18 15:01 Last Admin: 01/17/18 14:07 Dose: 166.7 mls/hr Multivitamins/Vitamin C (Multi-Delyn Liquid) 5 ml PO DAILY [facility] Last Admin: 01/17/18 10:02 Dose: 5 ml Pantoprazole Sodium (Protonix Inj) 40 mg IVP DAILY [facility] Last Admin: 01/17/18 10:02 Dose: 40 mg Zinc Sulfate (Zinc Sulfate 220 Mg Cap) 220 mg PO DAILY [facility] Last Admin: 01/17/18 10:02 Dose: 220 mg - Labs Labs: 01/17/18 06:19 01/17/18 06:17 PT 16.7 SECONDS (9.7-12.2) H 01/15/18 02:05 INR 1.5 01/15/18 02:05 APTT 37 SECONDS (21-34) H 01/15/18 02:05
[2018-01-18] MEDS: Vancomycin 1 gm/NS 200 ml 1 GM/200 ML BAG IVPB SCH (02:10)
[2018-01-18] MEDS: Albuterol-Ipratrop 3 mg / 0.5 (3 ml) UD INH SCH ×4 (03:11→15:43)
[2018-01-18] MEDS: Piperacillin/Tazobact 3.375 GM in Sodium Chloride 100 ML IVPB SCH ×2 (05:10→12:22)
[2018-01-18 06:37] LABS: BASO % 0.1 % (0.0-2.0); EOS # 0.2 K/uL (0.0-0.7); EOS % 4.6 % (0.0-4.0); LYMPH # 0.7 K/uL (1.0-4.3); LYMPH % 14.6 % (20.0-40.0); MEAN CELL VOLUME 96.4 fL (80.0-94.0); MEAN CORPUSCULAR HEMOGLOBIN 30.2 pg (27.0-31.0); MEAN CORPUSCULAR HGB CONC 31.3 g/dL (33.0-37.0); MEAN PLATELET VOLUME 8.9 fL (7.2-11.7); MONO # 0.3 K/uL (0.0-0.8); MONO % 6.2 % (0.0-10.0); NEUT # 3.5 K/uL (1.8-7.0); NEUT % 74.5 % (50.0-75.0); NRBC % 0.1 % (0.0-2.0); RBC 2.65 Mil/uL (4.40-5.90); RED CELL DISTRIBUTION WIDTH 18.5 % (11.5-14.5); WHITE BLOOD COUNT 4.7 K/uL (4.8-10.8)
[2018-01-18 06:51] LABS: ALB/GLOB RATIO 0.7 (1.0-2.1); ALBUMIN 2.4 g/dL (3.5-5.0); ALT/SGPT 22 U/L (21-72); AST/SGOT 29 U/L (17-59); BLOOD UREA NITROGEN 16 mg/dL (9-20); CALCIUM 7.9 mg/dl (8.6-10.4); GFR AFRICAN-AMERICAN > 60; GFR NON-AFRICAN AMERICAN > 60
[2018-01-18] MEDS: Collagenase 250 Units/gm Ointment(30 gm) TOP SCH (09:42)
[2018-01-18] MEDS: Multiple Vitamins Oral Solution PO SCH (10:08)
--- NOTE | 2018-01-18 15:24 | CP.PCM.PN ---
Subjective - Date & Time of Evaluation Date of Evaluation: 01/18/18 Time of Evaluation: 01:00 - Subjective Subjective: Office no complaints Objective - Vital Signs/Intake and Output Vital Signs (last 24 hours): Temp Pulse Resp BP Pulse Ox 97.8 F 93 H 17 114/65 99 01/18/18 12:00 01/18/18 14:00 01/18/18 14:00 01/18/18 14:00 01/18/18 13:32 Intake and Output: 01/18/18 01/18/18 06:59 18:59 Intake Total 1160 820 Output Total 1100 Balance 60 820 - Medications Medications: Current Medications Acetaminophen (Tylenol 325mg Tab) 650 mg PO Q4 PRN PRN Reason: Fever >100.4 F Albuterol/Ipratropium (Duoneb 3 Mg/0.5 Mg (3 Ml) Ud) 3 ml INH RQ4 [facility] Last Admin: 01/18/18 11:37 Dose: 3 ml Ascorbic Acid (Vitamin C 500 Mg Tab) 250 mg PO DAILY [facility] Last Admin: 01/18/18 09:40 Dose: 250 mg Aspirin (Aspirin Chewable) 81 mg PO DAILY [facility] Last Admin: 01/18/18 09:40 Dose: 81 mg Collagenase (Santyl) 0 gm TOP DAILY [facility] Last Admin: 01/18/18 09:42 Dose: 1 applic Diltiazem HCl (Cardizem) 30 mg PO Q6 [facility] Last Admin: 01/18/18 12:22 Dose: 30 mg Furosemide (Lasix) 40 mg PO DAILY [facility] Last Admin: 01/18/18 09:40 Dose: 40 mg Piperacillin Sod/Tazobactam (Sod 3.375 gm/ Sodium Chloride) 100 mls @ 200 mls/ hr IVPB Q8H [facility] PRN Reason: Protocol Last Admin: 01/18/18 12:22 Dose: 200 mls/hr Multivitamins/Vitamin C (Multi-Delyn Liquid) 5 ml PO DAILY [facility] Last Admin: 01/18/18 10:08 Dose: 5 ml Pantoprazole Sodium (Protonix Inj) 40 mg IVP DAILY [facility] Last Admin: 01/18/18 09:39 Dose: 40 mg Zinc Sulfate (Zinc Sulfate 220 Mg Cap) 220 mg PO DAILY [facility] Last Admin: 01/18/18 09:40 Dose: 220 mg - Labs Labs: 01/18/18 06:28 01/18/18 06:26 PT 16.7 SECONDS (9.7-12.2) H 01/15/18 02:05 INR 1.5 01/15/18 02:05 APTT 37 SECONDS (21-34) H 01/15/18 02:05 - Constitutional Appears: No Acute Distress, Chronically Ill - Head Exam Head Exam: ATRAUMATIC, NORMAL INSPECTION, NORMOCEPHALIC - Eye Exam Eye Exam: EOMI, Normal appearance, PERRL Pupil Exam: NORMAL ACCOMODATION, PERRL - ENT Exam ENT Exam: Mucous Membranes Moist, Normal Exam Additional comments: Tracheostomy - Neck Exam Neck Exam: Full ROM, Normal Inspection Additional comments: Tracheostomy - Respiratory Exam Respiratory Exam: NORMAL BREATHING PATTERN Additional comments: 50% O2 via tracheostomy - Cardiovascular Exam Cardiovascular Exam: Tachycardia, REGULAR RHYTHM - GI/Abdominal Exam Additional comments: PEG - Rectal Exam Rectal Exam: Deferred - Extremities Exam Additional comments: discolorated toes, dry skin - Back Exam Back Exam: NORMAL INSPECTION - Neurological Exam Neurological Exam: Alert, Oriented x3 Neuro motor strength exam: Left Upper Extremity: 2/1, Right Upper Extremity: 2/1 , Left Lower Extremity: 2/1, Right Lower Extremity: 2/1 - Psychiatric Exam Psychiatric exam: Normal Affect, Normal Mood - Skin Skin Exam: Dry, Normal Color Assessment and Plan - Assessment and Plan (Free Text) Assessment: Palliative progress notes Patient seen and examined in recliner chair. Physical exam remains the same. Afebrile, VS WNL. IV antibiotics still on board. I informed patient about his friend Ghulam Dickson not being available over the phone and offered to finish the Code status discussion we began yesterday. patient agreed. In presence of two RNs, Eric I made sure patient understood the meaning of DNR. I reviewed his clinical condition and [place] quality of life concerns. By mouthing his words, patient stated understanding DNR and signed POLST. The benefices of DNR status explained to patient. he agreed. Assessment * Chronically ill man with severely decreased quality of life due to disease process * Physical deformity * lack of family support * Difficulties communicating due to trach presence * General weakness, at risk for contraction and pressure sores * Inadequate nutrition Plan * Assist with repositionig in bed, passive ROM * Promote skin integrity * Promote communication with patient using written words * Oral care * DNR, POLST on chart Advance care planing, 30 min.
--- NOTE | 2018-01-18 15:53 | CP.PCM.PN ---
Subjective - Date & Time of Evaluation Date of Evaluation: 01/18/18 Time of Evaluation: 15:46 - Subjective Subjective: PT DOWNGRADED FROM ICU TO TELE TODAY BY PROVIDER CONTRACTING CONSULTANT. PT HAS BEEN REFERRED AND ACCEPTED AT [facility] UNDER Tramaine CESAR'S SERVICE. PT IS STABLE AT THIS TIME; WAS OOB TO CHAIR THIS MORNING. NO ACUTE DISTRESS NOTED. DISCUSSED PLAN FOR POSS D/C WITH DR. VELÁSQUEZ AND HE CLEARED THE PT. PT ALSO CLEARED BY DR. CHRISTIAN AND DR. FANG. PER DR. FANG, PT TO CONTINUE ZOSYN 3.375 GM IV Q8 HOURS X14 MORE DAYS (01/19/19-02/01/18). PICC LINE CAN BE INSERTED BY STAFF AT [facility] AND DR. CESAR IN AGREEMENT. SW AWARE OF D/C. SW WILL ARRANGE TRANSPORTATION THIS EVENING. NO FURTHER ORDERS. -PLACE UNDER THE SERVICE OF DR. Rhonda CESAR WHILE AT [facility]---CALL DR. Rhonda CESAR UPON ARRIVAL TO FACILITY FOR ADMITTING ORDERS. -PLEASE ARRANGE FOR PICC LINE TO BE INSERTED UPON ARRIVAL OR TOMORROW FOR 14 DAYS OF IV ANTIBIOTICS. -PER ID (DR. FANG) REQUEST: CONTINUE ZOSYN 3.375 GM IV Q8 HOUR X 14 DAYS ( START 01/19/18 AND LAST DOSE TO BE GIVEN ON 02/01/18). -CONTINUE ALL MEDICATIONS PER THE MED REC FORM---CHANGES CAN BE MADE BY DR. Rhonda CESAR. -TRACH AND OXYGEN CARE PER DR. Mushtaq CESAR'S ORDERS. Objective - Vital Signs/Intake and Output Vital Signs (last 24 hours): Temp Pulse Resp BP Pulse Ox 97.8 F 93 H 13 117/65 100 01/18/18 12:00 01/18/18 15:00 01/18/18 15:00 01/18/18 15:00 01/18/18 15:00 Intake and Output: 01/18/18 01/18/18 06:59 18:59 Intake Total 1160 870 Output Total 1100 Balance 60 870 - Medications Medications: Current Medications Acetaminophen (Tylenol 325mg Tab) 650 mg PO Q4 PRN PRN Reason: Fever >100.4 F Albuterol/Ipratropium (Duoneb 3 Mg/0.5 Mg (3 Ml) Ud) 3 ml INH RQ4 [facility] Last Admin: 01/18/18 15:43 Dose: 3 ml Ascorbic Acid (Vitamin C 500 Mg Tab) 250 mg PO DAILY [facility] Last Admin: 01/18/18 09:40 Dose: 250 mg Aspirin (Aspirin Chewable) 81 mg PO DAILY [facility] Last Admin: 01/18/18 09:40 Dose: 81 mg Collagenase (Santyl) 0 gm TOP DAILY [facility] Last Admin: 01/18/18 09:42 Dose: 1 applic Diltiazem HCl (Cardizem) 30 mg PO Q6 [facility] Last Admin: 01/18/18 12:22 Dose: 30 mg Furosemide (Lasix) 40 mg PO DAILY [facility] Last Admin: 01/18/18 09:40 Dose: 40 mg Piperacillin Sod/Tazobactam (Sod 3.375 gm/ Sodium Chloride) 100 mls @ 200 mls/ hr IVPB Q8H [facility] PRN Reason: Protocol Last Admin: 01/18/18 12:22 Dose: 200 mls/hr Multivitamins/Vitamin C (Multi-Delyn Liquid) 5 ml PO DAILY [facility] Last Admin: 01/18/18 10:08 Dose: 5 ml Pantoprazole Sodium (Protonix Inj) 40 mg IVP DAILY [facility] Last Admin: 01/18/18 09:39 Dose: 40 mg Zinc Sulfate (Zinc Sulfate 220 Mg Cap) 220 mg PO DAILY [facility] Last Admin: 01/18/18 09:40 Dose: 220 mg - Labs Labs: 01/18/18 06:28 01/18/18 06:26 PT 16.7 SECONDS (9.7-12.2) H 01/15/18 02:05 INR 1.5 01/15/18 02:05 APTT 37 SECONDS (21-34) H 01/15/18 02:05
[2018-01-18 16:25] VITALS: TEMP 98.5
[2018-01-18 19:09] VITALS: BP 110/74; PULSE 88; RESP 14; O2SAT 97
--- NOTE | 2018-01-18 23:25 | CP.PCM.DIS ---
Provider - Provider Date of Admission: 01/15/18 03:52 Attending physician: Hipolito Denton MD Time Spent in preparation of Discharge (in minutes): 35 Hospital Course - Lab Results Lab Results: Micro Results 01/15/18 04:00 Blood Blood Culture - Preliminary NO GROWTH AFTER 3 DAYS 01/15/18 04:30 Blood Blood Culture - Preliminary NO GROWTH AFTER 3 DAYS 01/15/18 10:40 Sputum Gram Stain - Final 01/15/18 10:40 Sputum Sputum Culture - Final Pseudomonas Aeruginosa 01/15/18 09:00 Nose MRSA Culture (Admit) - Final MRSA NOT DETECTED 01/15/18 14:00 Urine,[place] Urine Culture - Final No Growth (<1,000 CFU/ML) Most Recent Lab Values WBC 4.7 K/uL (4.8-10.8) L 01/18/18 06:28 RBC 2.65 Mil/uL (4.40-5.90) L 01/18/18 06:28 Hgb 8.0 g/dL (12.0-18.0) L 01/18/18 06:28 Hct 25.5 % (35.0-51.0) L 01/18/18 06:28 MCV 96.4 fL (80.0-94.0) H 01/18/18 06:28 MCH 30.2 pg (27.0-31.0) 01/18/18 06:28 MCHC 31.3 g/dL (33.0-37.0) L 01/18/18 06:28 RDW 18.5 % (11.5-14.5) H 01/18/18 06:28 Plt Count 127 K/uL (130-400) L 01/18/18 06:28 MPV 8.9 fL (7.2-11.7) 01/18/18 06:28 Neut % (Auto) 74.5 % (50.0-75.0) 01/18/18 06:28 Lymph % (Auto) 14.6 % (20.0-40.0) L 01/18/18 06:28 [place] % (Auto) 6.2 % (0.0-10.0) 01/18/18 06:28 Eos % (Auto) 4.6 % (0.0-4.0) H 01/18/18 06:28 Baso % (Auto) 0.1 % (0.0-2.0) 01/18/18 06:28 Neut # (Auto) 3.5 K/uL (1.8-7.0) 01/18/18 06:28 Lymph # (Auto) 0.7 K/uL (1.0-4.3) L 01/18/18 06:28 [place] # (Auto) 0.3 K/uL (0.0-0.8) 01/18/18 06: Eos # (Auto) 0.2 K/uL (0.0-0.7) 01/18/18 06:28 Baso # (Auto) 0.0 K/uL (0.0-0.2) 01/18/18 06:28 Neutrophils % (Manual) 75 % (50-75) 01/15/18 02:05 Band Neutrophils % 14 % (0-2) H* 01/15/18 02:05 Lymphocytes % (Manual) 5 % (20-40) L 01/15/18 02:05 Monocytes % (Manual) 6 % (0-10) 01/15/18 02:05 Platelet Estimate Normal (NORMAL) 01/15/18 02:05 Poikilocytosis (manual Slight 01/15/18 02:05 Basophilic Stippling Slight 01/15/18 02:05 Anisocytosis (manual) Slight 01/15/18 02:05 PT 16.7 SECONDS (9.7-12.2) H 01/15/18 02:05 INR 1.5 01/15/18 02:05 APTT 37 SECONDS (21-34) H 01/15/18 02:05 Puncture Site Rr 01/16/18 04:30 pCO2 52 mm/Hg (35-45) H 01/16/18 04:30 pO2 63 mm/Hg (80-100) L 01/16/18 04:30 HCO3 37.8 mmol/L (21-28) H 01/16/18 04:30 ABG pH 7.51 (7.35-7.45) H 01/16/18 04:30 ABG Total CO2 43.1 mmol/L (22-28) H 01/16/18 04:30 ABG O2 Saturation 95.1 % (95-98) 01/16/18 04:30 ABG Base Excess 16.6 mmol/L (-2.0-3.0) H 01/16/18 04:30 ABG Hemoglobin 9.0 g/dL (11.7-17.4) L 01/16/18 04:30 ABG Carboxyhemoglobin 2.6 % (0.5-1.5) H 01/16/18 04:30 POC ABG HHb (Measured) 4.7 % (0.0-5.0) 01/16/18 04:30 ABG Methemoglobin 1.0 % (0.0-3.0) 01/16/18 04:30 Suraj Test Pos 01/16/18 04:30 ABG Potassium 4.0 mmol/L (3.6-5.2) 01/15/18 13:10 A-a O2 Difference 229.0 mm/Hg 01/16/18 04:30 Respiratory Index 3.6 01/16/18 04:30 Hgb O2 Saturation 91.8 % (95.0-98.0) L 01/16/18 04:30 Sodium 144.0 mmol/l (132-148) 01/15/18 13:10 Chloride 106.0 mmol/L (98-107) 01/15/18 13:10 Glucose 108 mg/dl (75-110) 01/15/18 13:10 Lactate 0.8 mmol/L (0.7-2.1) 01/15/18 13:10 Liter Flow 12.0 01/15/18 01:56 Vent Mode Prvc 01/16/18 04:30 Mechanical Rate 16 01/16/18 04:30 FiO2 50.0 % 01/16/18 04:30 Tidal Volume 450 01/16/18 04:30 PEEP 5 01/16/18 04:30 Crit Value Called To Dr avery 01/15/18 13:10 Crit Value Called By [place] travis crt 01/15/18 13:10 Crit Value Read Back Y 01/15/18 13:10 Blood Gas Notified Time 1320 01/15/18 13:10 Sodium 149 mmol/L (132-148) H 01/18/18 06:26 Potassium 3.3 mmol/L (3.6-5.2) L 01/18/18 06:26 Chloride 101 mmol/L (98-107) 01/18/18 06:26 Carbon Dioxide 42 mmol/L (22-30) H* 01/18/18 06:26 Anion Gap 9 (10-20) L 01/18/18 06:26 BUN 16 mg/dL (9-20) 01/18/18 06:26 Creatinine 0.4 mg/dL (0.8-1.5) L 01/18/18 06:26 Est GFR ( Amer) > 60 01/18/18 06:26 Est GFR (Non-Af Amer) > 60 01/18/18 06:26 POC Glucose (mg/dL) 118 mg/dL (65-110) H 01/17/18 11:25 Random Glucose 90 mg/dL (75-110) 01/18/18 06:26 Calcium 7.9 mg/dl (8.6-10.4) L 01/18/18 06:26 Phosphorus 2.7 mg/dL (2.5-4.5) 01/18/18 06:26 Magnesium 2.1 mg/dL (1.6-2.3) 01/18/18 06:26 Total Bilirubin 0.3 mg/dL (0.2-1.3) 01/18/18 06:26 AST 29 U/L (17-59) 01/18/18 06:26 ALT 22 U/L (21-72) 01/18/18 06:26 Alkaline Phosphatase 82 U/L (38-126) 01/18/18 06:26 Troponin I 0.0670 ng/mL (0.00-0.120) 01/15/18 02:05 NT-Pro-B Natriuret Pep 8080 pg/mL (0-900) H 01/15/18 02:05 Total Protein 6.1 g/dL (6.3-8.3) L 01/18/18 06:26 Albumin 2.4 g/dL (3.5-5.0) L 01/18/18 06:26 Globulin 3.6 gm/dL (2.2-3.9) 01/18/18 06:26 Albumin/Globulin Ratio 0.7 (1.0-2.1) L 01/18/18 06:26 Arterial Blood Potassium 4.0 mmol/L (3.6-5.2) 01/15/18 13:10 Urine Color Yellow (YELLOW) 01/15/18 11:45 Urine Clarity Hazy (Clear) 01/15/18 11:45 Urine pH 5.0 (5.0-8.0) 01/15/18 11:45 Ur Specific [place] 1.024 (1.003-1.030) 01/15/18 11:45 Urine Protein Negative mg/dL (NEGATIVE) 01/15/18 11:45 Urine Glucose (UA) Normal mg/dL (Normal) 01/15/18 11:45 Urine Ketones Negative mg/dL (NEGATIVE) 01/15/18 11:45 Urine Blood Negative (NEGATIVE) 01/15/18 11:45 Urine Nitrate Negative (NEGATIVE) 01/15/18 11:45 Urine Bilirubin Negative (NEGATIVE) 01/15/18 11:45 Urine Urobilinogen 4.0 mg/dL (0.2-1.0) 01/15/18 11:45 Ur Leukocyte Esterase Neg Marii/uL (Negative) 01/15/18 11:45 Urine WBC (Auto) 4 /hpf (0-5) 01/15/18 11:45 Urine RBC (Auto) 3 /hpf (0-3) 01/15/18 11:45 Ur Squamous Epith Cells < 1 /hpf (0-5) 01/15/18 11:45 Urine Bacteria Rare (<OCC) 01/15/18 11:45 Hyaline Casts 3-5 /lpf (0-2) H 01/15/18 11:45 Vancomycin Peak 25.8 ug/mL (30.0-40.0) L 01/16/18 06:17 Vancomycin Trough 23.7 ug/mL (5.0-10.0) H 01/16/18 04:07 Discharge Exam - Head Exam Head Exam: ATRAUMATIC, NORMAL INSPECTION, NORMOCEPHALIC Discharge Plan - Follow Up Plan Condition: GUARDED [facility] Instructions: Community Acquired Pneumonia (DC), Bacterial Pneumonia (DC), Dyspnea (GEN) Additional Instructions: -PLACE UNDER THE SERVICE OF DR. Rhonda DENTON WHILE AT [facility]---CALL DR. Rhonda DENTON UPON ARRIVAL TO FACILITY FOR ADMITTING ORDERS. -PLEASE ARRANGE FOR PICC LINE TO BE INSERTED UPON ARRIVAL OR TOMORROW FOR 14 DAYS OF IV ANTIBIOTICS. -PER ID (DR. WEEKS) REQUEST: CONTINUE ZOSYN 3.375 GM IV Q8 HOUR X 14 DAYS ( START 01/19/18 AND LAST DOSE TO BE GIVEN ON 02/01/18). -CONTINUE ALL MEDICATIONS PER THE MED REC FORM---CHANGES CAN BE MADE BY DR. Rhonda DENTON. -TRACH AND OXYGEN CARE PER DR. Mushtaq DENTON'S ORDERS. Referrals: Andi Waldron MD [Staff Provider] - Charlie Urban MD [Staff Provider] - Delmer Weeks MD [Staff Provider] - Yvonne Denton MD [Staff Provider] -
== END 2018-01-18 19:43 | DRG 208 ==
LOC: C.ER 01:20 → C.9I 03:52
PROVIDERS: ADMIT Internal Medicine Nephrology; ATTEND Internal Medicine Nephrology
PROC: 5A1945Z Respiratory Ventilation, 24-96 Consecutive Hours (ICD-10-PCS; principal; 2018-01-16)
DX: J18.9 Pneumonia, unspecified organism (principal); J96.21 Acute and chronic respiratory failure with hypoxia; J44.0 Chronic obstructive pulmonary disease with (acute) lower respiratory infection; Z93.0 Tracheostomy status; E11.622 Type 2 diabetes mellitus with other skin ulcer; J96.22 Acute and chronic respiratory failure with hypercapnia; L97.909 Non-pressure chronic ulcer of unspecified part of unspecified lower leg with unspecified severity; J44.1 Chronic obstructive pulmonary disease with (acute) exacerbation; Z68.1 Body mass index [BMI] 19.9 or less, adult; I11.0 Hypertensive heart disease with heart failure; I50.9 Heart failure, unspecified; E86.0 Dehydration; R32 Unspecified urinary incontinence; Z51.5 Encounter for palliative care; Z66 Do not resuscitate; Z85.21 Personal history of malignant neoplasm of larynx; Z93.1 Gastrostomy status; D53.9 Nutritional anemia, unspecified

== ENCOUNTER 2018-04-11 11:04 | Inpatient (IN) | payer MEDICARE ==
[2018-04-11 11:05] VITALS: BMI 20.7
[2018-04-11] MEDS ORDERED: Sodium Chloride 0.9% 1,000 ML IV ONE (11:26)
--- NOTE | 2018-04-11 11:59 | RAD ---
PROCEDURE: CHEST RADIOGRAPH, 1 VIEW HISTORY: SOB COMPARISON: Comparison made with chest radiograph and CT scan chest dated 01/17/2018 and 01/15/2018 respectively. FINDINGS: In situ tracheostomy tube. LUNGS: Previously noted extensive consolidation changes seen in the left upper lobe slightly improved. Patchy consolidation changes and/or atelectasis in the right upper and right mid lung zone also improved. . Previously noted small cavitation changes in the right and left upper lobes are less well seen compared to high-resolution CT chest. Underlying emphysema and fibrotic changes are present though seen to better advantage on prior CT scan PLEURA: No pneumothorax or pleural fluid seen. CARDIOVASCULAR: Normal. OSSEOUS STRUCTURES: No significant abnormalities. VISUALIZED UPPER ABDOMEN: Normal. OTHER FINDINGS: None. IMPRESSION: Previously noted extensive consolidation changes seen in the left upper lobe slightly improved. Patchy consolidation changes in the right upper and right mid lung zone also improved. Previously noted small cavitation changes in the right and left upper lobes are less well seen compared to high-resolution CT chest. Underlying emphysema and fibrosis are present though seen to better advantage on prior CT scan
[2018-04-11] MEDS ORDERED: Piperacillin/Tazobact 3.375 gm 100 ML IV STA (12:00)
[2018-04-11] MEDS ORDERED: Vancomycin 1 GM 1 GM/250 ML BAG IV SCH (12:00)
[2018-04-11 12:25] LABS: VENOUS BLOOD GAS BASE EXCESS 15.7 mmol/L (0.0-2.0); VENOUS BLOOD GAS PCO2 90 mmHg (40-60); VENOUS BLOOD GAS PO2 24 mm/Hg (30-55); VENOUS BLOOD PH 7.32 (7.32-7.43)
[2018-04-11] MEDS ORDERED: Sodium Chloride 0.9% 1,000 ML ONE (12:54)
[2018-04-11] MEDS ORDERED: Piperacillin/Tazobact 3.375 gm 100 ML IVPB ONE (12:54)
--- NOTE | 2018-04-11 13:05 | C.PDOC ---
History Of Present Illness 72 year old male is brought to the ED by EMS from long term for evaluation of hypoxia and rapid heart rate noted earlier today. As per long term, patient was noted to have an O2 saturation of 58%. After EMS arrival, patient's saturation improved to low 90s. Patient is complaining of shortness of breath. Patient's PMHx includes layngeal cancer, COPD, and asthma. Patient denies fever , chills. Time Seen by Provider: 04/11/18 11:18 Chief Complaint (Nursing): Shortness Of Breath History Per: Patient, EMS History/Exam Limitations: no limitations Onset/Duration Of Symptoms: Hrs Current Symptoms Are (Timing): Still Present Initiating Event: Upper Respiratory Illness Current Respiratory Medications: See Home Med List Severity: Moderate Associated Symptoms: denies: Fever, Chills Additional History Per: Patient, EMS, [facility] Past Medical History Reviewed: Historical Data, Nursing Documentation, Vital Signs Vital Signs: Last Vital Signs Temp 97.3 F L 04/11/18 13:59 Pulse 92 H 04/11/18 13:59 Resp 24 04/11/18 13:59 BP 104/62 04/11/18 13:59 Pulse Ox 91 L 04/11/18 14:47 - Medical History PMH: Asthma, CHF, COPD, HTN, Pneumonia (Lobar) Denies: Chronic Kidney Disease Other PMH: laryngeal cancer Surgical History: No Surg Hx Other Surgeries: tracheostomy - [facility] Procedures ASSISTANCE WITH RESPIRATORY VENTILATION, <24 HRS, CPAP (11/24/16) DRAINAGE OF RIGHT PLEURAL CAVITY, PERC APPROACH, DIAGN (11/11/17) EXCISION OF LARYNX, ENDO, DIAGN (11/11/17) EXCISION OF SMALL INTESTINE, ENDO, DIAGN (11/11/17) INSERT INFUSION DEV IN R INT JUGULAR VEIN, PERC (11/24/16) INSERTION OF ENDOTRACHEAL AIRWAY INTO TRACHEA, VIA OPENING (11/11/17) INSERTION OF FEEDING DEVICE INTO STOMACH, PERC APPROACH (11/11/17) INSPECTION OF LARYNX, ENDO (11/11/17) RESPIRATORY VENTILATION, 24-96 CONSECUTIVE HOURS (01/15/18) RESPIRATORY VENTILATION, LESS THAN 24 CONSECUTIVE HOURS (11/24/16) Family History: States: Unknown Family Hx - Social History Hx Alcohol Use: No Hx Substance Use: No - Immunization History Hx Tetanus Toxoid Vaccination: No Hx Influenza Vaccination: Yes (11/2017) Hx Pneumococcal Vaccination: Yes (11/2017) Review Of Systems Constitutional: Negative for: Fever, Chills Respiratory: Positive for: Shortness of Breath Physical Exam - Physical Exam Appears: Non-toxic, No Acute Distress Skin: Normal Color, Warm, Dry, Other (decubitus ulcers to sacrum and feet ) Head: Atraumatic, Normacephalic Eye(s): bilateral: Normal Inspection Oral Mucosa: Moist Neck: Supple, Other (trach in place ) Chest: Symmetrical, No Deformity, No Tenderness Cardiovascular: Rhythm Regular, No Murmur Respiratory: Normal Breath Sounds, No Rales, No Rhonchi, No Wheezing Gastrointestinal/Abdominal: Soft, No Tenderness, No Guarding, No Rebound, Other (feeding tube in place) Extremity: Normal ROM, Capillary Refill (less than 2 seconds ) Neurological/Psych: Oriented x3, Normal Speech, Normal Cognition Gait: Steady ED Course And Treatment - Laboratory Results Result Diagrams: 04/11/18 13:36 04/11/18 13:36 Lab Interpretation: Abnormal ECG: Interpreted By In ECG Rhythm: Sinus Tachycardia ECG Interpretation: No Acute Changes Rate From EC O2 Sat by Pulse Oximetry: 91 Pulse Ox Interpretation: Abnormal - Radiology CXR: Interpreted by In CXR Interpretation: Yes: Infiltrates Progress Note: Bloodwork, urinalysis, CXR, EKG ordered and reviewed. Zosyn IV, Vancomycin IV, and IV Fluids administered. Code sepsis called. Case discussed with Corrections Specialist, Dr. Jose and Dr. Mushtaq Denton. Reassessment Condition: Improved - Physician Consult Information Physician Contacted: Jeff Denton Outcome Of Conversation: admit Critical Care Time - Critical Care Note Total Time (in mins): 30 Documented critical care: time excludes all time spent performing seperately billable procedures. Medical Decision Making Medical Decision Making: Patient evaluated by ICU Dr Jose who will discussed case with Dr Mushtaq Denton Patient evaluated by respiratory therapy who placed trach collar on patient Trested with IVF NSS and vanc and zosyn Patient not accepted to ICU per Dr Jose and will be admitted to telemetry for further evaluation Disposition Discussed With : Yvonne Denton Doctor Will See Patient In The: Hospital - Disposition Disposition: HOSPITALIZED Disposition Time: 14:00 Condition: GUARDED - POA Present On Arrival: Pressure Ulcer - Clinical Impression Clinical Impression: Respiratory distress, COPD (chronic obstructive pulmonary disease) with emphysema, Pneumonia - PA / PLANT QUALITY MANAGER / Resident Statement MD/DO has reviewed & agrees with the documentation as recorded. - Scribe Statement The provider has reviewed the documentation as recorded by the Scribe (Breonna Denton) All medical record entries made by the Scribe were at my direction and personally dictated by me. I have reviewed the chart and agree that the record accurately reflects my personal performance of the history, physical exam, medical decision making, and the department course for this patient. I have also personally directed, reviewed, and agree with the discharge instructions and disposition.
[2018-04-11 13:40] LABS: BASO % 0.4 % (0.0-2.0); EOS % 0.1 % (0.0-4.0); HEMOGLOBIN 10.6 g/dL (12.0-18.0); LYMPH # 0.5 K/uL (1.0-4.3); LYMPH % 5.8 % (20.0-40.0); MEAN CELL VOLUME 85.8 fL (80.0-94.0); MEAN CORPUSCULAR HEMOGLOBIN 28.3 pg (27.0-31.0); MEAN PLATELET VOLUME 7.4 fL (7.2-11.7); MONO # 0.7 K/uL (0.0-0.8); MONO % 8.1 % (0.0-10.0); NEUT # 7.7 K/uL (1.8-7.0); NEUT % 85.6 % (50.0-75.0); PLATELET COUNT 309 K/uL (130-400); RBC 3.76 Mil/uL (4.40-5.90)
[2018-04-11 14:04] LABS: ALB/GLOB RATIO 0.7 (1.0-2.1); ALBUMIN 3.3 g/dL (3.5-5.0); ALT/SGPT 51 U/L (21-72); AST/SGOT 97 U/L (17-59); BLOOD UREA NITROGEN 26 mg/dL (9-20); CALCIUM 8.6 mg/dl (8.6-10.4); GFR AFRICAN-AMERICAN > 60; GFR NON-AFRICAN AMERICAN > 60
[2018-04-11 14:12] LABS: BANDS 1 % (0-2); LYMPHOCYTE 8 % (20-40); MONOCYTE 8 % (0-10); NEUTROPHIL 83 % (50-75); TOTAL CELLS COUNTED 100
[2018-04-11 14:13] LABS: ANISOCYTOSIS SLIGHT; PLATELET ESTIMATE NORMAL (NORMAL)
[2018-04-11 14:14] LABS: HYPOCHROMIC SLIGHT; POLYCHROMIC SLIGHT; TARGET CELLS SLIGHT
[2018-04-11] MEDS ORDERED: Vancomycin 1 gm/NS 200 ml 1 GM/200 ML BAG IVPB SCH (16:00)
[2018-04-11] MEDS ORDERED: Alum-Mag Hydrox-Simethicone Susp (30 mL) GT PRN (18:20)
[2018-04-11] MEDS ORDERED: Magnesium Hydroxide Susp 30 ml UD GT PRN (18:20)
[2018-04-11] MEDS: Collagenase 250 Units/gm Ointment(30 gm) TOP SCH (18:45)
--- NOTE | 2018-04-11 19:05 | CP.PCM.CON ---
History of Present Illness - History of Present Illness History of Present Illness: I was asked to see patient by Dr Choi. Patient is a 72 year old male with PMH HTN, hypercholesterolemia, COPD who poresents with dyspnea. The patient was at the residential when he was found to destaruate. He was brought to [facility] for further management. He currently appears comfortable, and denies chest pain. Last evaluation of LV function revealed normal ejection fraction. Review of Systems - Review of Systems Systems not reviewed;Unavailable: Altered Mental Status Past Patient History - Past Medical History & Family History Past Medical History?: Yes - Past Social History Smoking Status: Unknown If Ever Smoked - CARDIAC Hx Congestive Heart Failure: Yes Hx Hypertension: Yes - PULMONARY Hx Asthma: Yes Hx Chronic Obstructive Pulmonary Disease (COPD): Yes Hx Pneumonia: Yes (Lobar) - NEUROLOGICAL Hx Neurological Disorder: Yes Hx Dizziness: Yes - HEENT Hx HEENT Problems: No - RENAL Hx Chronic Kidney Disease: No - ENDOCRINE/METABOLIC Hx Diabetes Mellitus Type 2: Yes - HEMATOLOGICAL/ONCOLOGICAL Hx Blood Disorders: No Other/Comment: sepsis - INTEGUMENTARY Hx Dermatological Problems: No - MUSCULOSKELETAL/RHEUMATOLOGICAL Hx Falls: Yes - GASTROINTESTINAL Hx Gastrointestinal Disorders: No Hx Gastroesophageal Reflux: Yes - GENITOURINARY/GYNECOLOGICAL Hx Genitourinary Disorders: No Other/Comment: Carcinoma in situ of layrnx - PSYCHIATRIC Hx Substance Use: No - SURGICAL HISTORY Hx Surgeries: Yes Other/Comment: Gastrostomy. tracheostomy - ANESTHESIA Hx Anesthesia: Yes Meds Allergies/Adverse Reactions: Allergies Allergy/AdvReac Type Severity Reaction Status Date / Time No Known Allergies Allergy Verified 04/11/18 11:25 - Medications Medications: Current Medications Acetaminophen (Tylenol 650mg/20.3ml Solution Ud) 650 mg GT Q4 PRN PRN Reason: Pain, moderate (4-7) Al Hydrox/Mg Hydrox/Simethicone (Maalox Plus 30 Ml) 30 ml GT Q4H PRN PRN Reason: Heartburn Albuterol/Ipratropium (Duoneb 3 Mg/0.5 Mg (3 Ml) Ud) 3 ml INH Q6 [facility] Ascorbic Acid (Vitamin C 250 Mg Tab) 250 mg GT DAILY JUANA Aspirin (Aspirin Chewable) 81 mg PO DAILY [facility] Collagenase (Santyl) 0 gm TOP BID [facility] Diltiazem HCl (Cardizem) 30 mg PO Q6 [facility] Enoxaparin Sodium (Lovenox) 40 mg SC DAILY JUANA Folic Acid (Folic Acid) 1 mg GT DAILY JUANA Furosemide (Lasix) 40 mg PEG DAILY JUANA Vancomycin/Sodium Chloride (Vancomycin 1 Gm/Ns 200 Ml) 1 gm in 200 mls @ 166.667 mls/hr IVPB STAT JUANA PRN Reason: Protocol Stop: 04/16/18 16:01 Azithromycin 500 mg/ Sodium (Chloride) 250 mls @ 250 mls/hr IVPB DAILY JUANA PRN Reason: Protocol Ceftriaxone Sodium 1 gm/ (Sodium Chloride) 100 mls @ 100 mls/hr IVPB DAILY JUANA PRN Reason: Protocol Sodium Chloride (Sodium Chloride 0.9%) 1,000 mls @ 20 mls/hr IV .Q24H JUANA Magnesium Hydroxide (Milk Of Magnesia) 30 ml GT HS PRN PRN Reason: Constipation Multivitamins/Vitamin C (Multi-Delyn Liquid) 5 ml GT DAILY JUANA Saccharomyces Boulardii (Florastor) 250 mg GT DAILY JUANA Fluticasone/Salmeterol (Advair Diskus 250/50) 1 puff INH RQ12 JUAAN Tiotropium Monroe (Spiriva Inhalation Handihaler Device) 1 inhaler INH DAILY JUANA Zinc Sulfate (Zinc Sulfate 220 Mg Cap) 220 mg GT DAILY JUANA Physical Exam - Constitutional Appears: Chronically Ill - Head Exam Head Exam: NORMAL INSPECTION - Eye Exam Eye Exam: Normal appearance - ENT Exam ENT Exam: Mucous Membranes Dry - Neck Exam Neck exam: Positive for: Full Rom - Respiratory Exam Respiratory Exam: Decreased Breath Sounds - Cardiovascular Exam Cardiovascular Exam: REGULAR RHYTHM - GI/Abdominal Exam GI & Abdominal Exam: Diminished Bowel Sounds - Rectal Exam Rectal Exam: Deferred - Extremities Exam Extremities exam: Positive for: pedal edema - Back Exam Back exam: NORMAL INSPECTION - Neurological Exam Neurological exam: Alert - Psychiatric Exam Psychiatric exam: Flat Affect - Skin Skin Exam: Normal Color Results - Vital Signs Recent Vital Signs: Last Vital Signs Temp 98.4 F 04/11/18 16:01 Pulse 86 04/11/18 16:01 Resp 18 04/11/18 16:01 BP 111/72 04/11/18 16:01 Pulse Ox 98 04/11/18 16:01 - Labs Result Diagrams: 04/11/18 13:36 04/11/18 13:36 Labs: Laboratory Results - last 24 hr 04/11/18 04/11/18 04/11/18 12:20 13:36 13:36 WBC 9.0 D RBC 3.76 L Hgb 10.6 L D Hct 32.2 L MCV 85.8 D MCH 28.3 MCHC 33.0 RDW 17.0 H Plt Count 309 D MPV 7.4 Neut % (Auto) 85.6 H Lymph % (Auto) 5.8 L Kendall % (Auto) 8.1 Eos % (Auto) 0.1 Baso % (Auto) 0.4 Neut # (Auto) 7.7 H Lymph # (Auto) 0.5 L Kendall # (Auto) 0.7 Eos # (Auto) 0.0 Baso # (Auto) 0.0 Neutrophils % (Manual) 83 H Band Neutrophils % 1 Lymphocytes % (Manual) 8 L Monocytes % (Manual) 8 Platelet Estimate Normal Polychromasia Slight Hypochromasia (manual) Slight Anisocytosis (manual) Slight Target Cells Slight pO2 24 L VBG pH 7.32 VBG pCO2 90 H* VBG HCO3 35.5 VBG Total CO2 49.2 H VBG O2 Sat (Calc) 29.4 L VBG Base Excess 15.7 H VBG Potassium 4.4 Sodium 133.0 132 Chloride 89.0 L 84 L Glucose 140 H Lactate 2.4 H Crit Value Called To Dr.bella roger Crit Value Called By Wilfredo choi,janki Crit Value Read Back Y Blood Gas Notified Time 1230 Potassium 4.5 Carbon Dioxide 38 H Anion Gap 15 BUN 26 H Creatinine 0.4 L Est GFR ( Amer) > 60 Est GFR (Non-Af Amer) > 60 POC Glucose (mg/dL) Random Glucose 138 H Calcium 8.6 Total Bilirubin 0.6 AST 97 H D ALT 51 Alkaline Phosphatase 111 Troponin I 0.0180 Total Protein 7.8 Albumin 3.3 L D Globulin 4.5 H Albumin/Globulin Ratio 0.7 L Venous Blood Potassium 4.4 04/11/18 17:05 WBC RBC Hgb Hct MCV MCH MCHC RDW Plt Count MPV Neut % (Auto) Lymph % (Auto) Kendall % (Auto) Eos % (Auto) Baso % (Auto) Neut # (Auto) Lymph # (Auto) Kendall # (Auto) Eos # (Auto) Baso # (Auto) Neutrophils % (Manual) Band Neutrophils % Lymphocytes % (Manual) Monocytes % (Manual) Platelet Estimate Polychromasia Hypochromasia (manual) Anisocytosis (manual) Target Cells pO2 VBG pH VBG pCO2 VBG HCO3 VBG Total CO2 VBG O2 Sat (Calc) VBG Base Excess VBG Potassium Sodium Chloride Glucose Lactate Crit Value Called To Crit Value Called By Crit Value Read Back Blood Gas Notified Time Potassium Carbon Dioxide Anion Gap BUN Creatinine Est GFR ( Amer) Est GFR (Non-Af Amer) POC Glucose (mg/dL) 94 Random Glucose Calcium Total Bilirubin AST ALT Alkaline Phosphatase Troponin I Total Protein Albumin Globulin Albumin/Globulin Ratio Venous Blood Potassium - EKG Data EKG Interpreted by: Myself Assessment & Plan (1) COPD (chronic obstructive pulmonary disease) with emphysema Assessment and Plan: followed by Dr Jose. recommend medical management. less wheezing at this time Status: Chronic (2) HTN (hypertension) Assessment and Plan: blood pressure control. Status: Acute
--- NOTE | 2018-04-11 19:13 | CP.PCM.HP ---
Past Patient History - Past Medical History & Family History Past Medical History?: Yes - Past Social History Smoking Status: Unknown If Ever Smoked - CARDIAC Hx Congestive Heart Failure: Yes Hx Hypertension: Yes - PULMONARY Hx Asthma: Yes Hx Chronic Obstructive Pulmonary Disease (COPD): Yes Hx Pneumonia: Yes (Lobar) - NEUROLOGICAL Hx Neurological Disorder: Yes Hx Dizziness: Yes - HEENT Hx HEENT Problems: No - RENAL Hx Chronic Kidney Disease: No - ENDOCRINE/METABOLIC Hx Diabetes Mellitus Type 2: Yes - HEMATOLOGICAL/ONCOLOGICAL Hx Blood Disorders: No Other/Comment: sepsis - INTEGUMENTARY Hx Dermatological Problems: No - MUSCULOSKELETAL/RHEUMATOLOGICAL Hx Falls: Yes - GASTROINTESTINAL Hx Gastrointestinal Disorders: No Hx Gastroesophageal Reflux: Yes - GENITOURINARY/GYNECOLOGICAL Hx Genitourinary Disorders: No Other/Comment: Carcinoma in situ of layrnx - PSYCHIATRIC Hx Substance Use: No - SURGICAL HISTORY Hx Surgeries: Yes Other/Comment: Gastrostomy. tracheostomy - ANESTHESIA Hx Anesthesia: Yes Meds Allergies/Adverse Reactions: Allergies Allergy/AdvReac Type Severity Reaction Status Date / Time No Known Allergies Allergy Verified 04/11/18 11:25 Physical Exam - Constitutional Appears: Well - Head Exam Head Exam: ATRAUMATIC, NORMAL INSPECTION, NORMOCEPHALIC - Eye Exam Eye Exam: EOMI, Normal appearance, PERRL Pupil Exam: NORMAL ACCOMODATION, PERRL - ENT Exam ENT Exam: Mucous Membranes Moist, Normal Exam - Neck Exam Neck exam: Positive for: Normal Inspection - Respiratory Exam Respiratory Exam: Decreased Breath Sounds - Cardiovascular Exam Cardiovascular Exam: REGULAR RHYTHM, +S1, +S2 - GI/Abdominal Exam GI & Abdominal Exam: Diminished Bowel Sounds, Soft - Rectal Exam Rectal Exam: Deferred Results - Vital Signs Recent Vital Signs: Last Vital Signs Temp 98.4 F 04/11/18 16:01 Pulse 86 04/11/18 16:01 Resp 18 04/11/18 16:01 BP 111/72 04/11/18 16:01 Pulse Ox 98 04/11/18 16:01 - Labs Result Diagrams: 04/11/18 13:36 04/11/18 13:36 Labs: Laboratory Results - last 24 hr 04/11/18 04/11/18 04/11/18 12:20 13:36 13:36 WBC 9.0 D RBC 3.76 L Hgb 10.6 L D Hct 32.2 L MCV 85.8 D MCH 28.3 MCHC 33.0 RDW 17.0 H Plt Count 309 D MPV 7.4 Neut % (Auto) 85.6 H Lymph % (Auto) 5.8 L Porter % (Auto) 8.1 Eos % (Auto) 0.1 Baso % (Auto) 0.4 Neut # (Auto) 7.7 H Lymph # (Auto) 0.5 L Porter # (Auto) 0.7 Eos # (Auto) 0.0 Baso # (Auto) 0.0 Neutrophils % (Manual) 83 H Band Neutrophils % 1 Lymphocytes % (Manual) 8 L Monocytes % (Manual) 8 Platelet Estimate Normal Polychromasia Slight Hypochromasia (manual) Slight Anisocytosis (manual) Slight Target Cells Slight pO2 24 L VBG pH 7.32 VBG pCO2 90 H* VBG HCO3 35.5 VBG Total CO2 49.2 H VBG O2 Sat (Calc) 29.4 L VBG Base Excess 15.7 H VBG Potassium 4.4 Sodium 133.0 132 Chloride 89.0 L 84 L Glucose 140 H Lactate 2.4 H Crit Value Called To Dr.bella roger Crit Value Called By Wilfredo choi,whittling room operator Crit Value Read Back Y Blood Gas Notified Time 1230 Potassium 4.5 Carbon Dioxide 38 H Anion Gap 15 BUN 26 H Creatinine 0.4 L Est GFR ( Amer) > 60 Est GFR (Non-Af Amer) > 60 POC Glucose (mg/dL) Random Glucose 138 H Calcium 8.6 Total Bilirubin 0.6 AST 97 H D ALT 51 Alkaline Phosphatase 111 Troponin I 0.0180 Total Protein 7.8 Albumin 3.3 L D Globulin 4.5 H Albumin/Globulin Ratio 0.7 L Venous Blood Potassium 4.4 04/11/18 17:05 WBC RBC Hgb Hct MCV MCH MCHC RDW Plt Count MPV Neut % (Auto) Lymph % (Auto) Porter % (Auto) Eos % (Auto) Baso % (Auto) Neut # (Auto) Lymph # (Auto) Porter # (Auto) Eos # (Auto) Baso # (Auto) Neutrophils % (Manual) Band Neutrophils % Lymphocytes % (Manual) Monocytes % (Manual) Platelet Estimate Polychromasia Hypochromasia (manual) Anisocytosis (manual) Target Cells pO2 VBG pH VBG pCO2 VBG HCO3 VBG Total CO2 VBG O2 Sat (Calc) VBG Base Excess VBG Potassium Sodium Chloride Glucose Lactate Crit Value Called To Crit Value Called By Crit Value Read Back Blood Gas Notified Time Potassium Carbon Dioxide Anion Gap BUN Creatinine Est GFR ( Amer) Est GFR (Non-Af Amer) POC Glucose (mg/dL) 94 Random Glucose Calcium Total Bilirubin AST ALT Alkaline Phosphatase Troponin I Total Protein Albumin Globulin Albumin/Globulin Ratio Venous Blood Potassium
[2018-04-11] MEDS: Sodium Chloride 0.9% 1,000 ML IV SCH (19:30)
[2018-04-11] MEDS: Fluticasone-Salmeterol 250-50mcg Diskus INH SCH (19:51)
--- NOTE | 2018-04-11 20:12 | CP.PCM.CON ---
History of Present Illness - History of Present Illness History of Present Illness: INFECTIOUS DISEASE CONSULT; HPI; 72-year-old male with past medical history of laryngeal cancer, COPD, bronchial asthma, hypertension, DM2, status post PEG and tracheostomy who was brought in by EMS from [facility] for evaluation of hypoxia and rapid heart rate noted earlier today. Patient also was noted to have oxygen saturation of 58%. Patient saturation improved to low 90s upon arrival of EMS. Patient was still complaining of shortness of breath and was brought to the ER. Patient chest x-ray consistent with bilateral consolidative changes with small cavitation right and left upper lobe less prominent from before as compared to HRCT in the past with underlying emphysema /and fibrosis. PATIENT WAS EMPIRICALLY STARTED ON ZITHROMAX 500 MG ONCE A DAY DAILY WITH IV CEFTRIAXONE 1 G DAILY. INFECTIOUS DISEASE CONSULTATION REQUESTED BY PMD FOR RESPIRATORY ACUTE ON CHRONIC HYPOXIC HYPERCAPNIC RESPIRATORY FAILURE. PATIENT WAS RECENTLY HOSPITALIZED AT [facility] IN JANUARY 2018 AND WAS FOUND TO HAVE PSEUDOMONAS AERUGINOSA PNEUMONIA. HISTORY OBTAINED MAINLY FROM THE CHART AND NURSING STAFF PATIENT HAS TRACHEOSTOMY. PATIENT DENIES ANY FEVER OR CHILLS. PMH: Asthma, CHF, COPD, HTN, Pneumonia (Lobar).LARYNGEAL CA S/P TRACH Denies: Chronic Kidney Disease Other PMH: laryngeal cancer Surgical History: No Surg Hx Other Surgeries: tracheostomy,PEG. - [facility] Procedures ASSISTANCE WITH RESPIRATORY VENTILATION, <24 HRS, CPAP (11/24/16) DRAINAGE OF RIGHT PLEURAL CAVITY, PERC APPROACH, DIAGN (11/11/17) EXCISION OF LARYNX, ENDO, DIAGN (11/11/17) EXCISION OF SMALL INTESTINE, ENDO, DIAGN (11/11/17) INSERT INFUSION DEV IN R INT JUGULAR VEIN, PERC (11/24/16) INSERTION OF ENDOTRACHEAL AIRWAY INTO TRACHEA, VIA OPENING (11/11/17) INSERTION OF FEEDING DEVICE INTO STOMACH, PERC APPROACH (11/11/17) INSPECTION OF LARYNX, ENDO (11/11/17) RESPIRATORY VENTILATION, 24-96 CONSECUTIVE HOURS (01/15/18) RESPIRATORY VENTILATION, LESS THAN 24 CONSECUTIVE HOURS (11/24/16) Family History: States: Unknown Family Hx - Social History Hx Alcohol Use: No Hx Substance Use: No - Immunization History Hx Tetanus Toxoid Vaccination: No Hx Influenza Vaccination: Yes (11/2017) Hx Pneumococcal Vaccination: Yes (11/2017) Review of Systems - Constitutional Constitutional: absent: Chills, Fever - EENT Ears: Decreased Hearing (+VE TRACHEOSTOMY) Nose/Mouth/Throat: Dry Mouth - Respiratory Respiratory: Dyspnea, Change in Mucous Color - Gastrointestinal Gastrointestinal: absent: Abdominal Pain, Diarrhea - Genitourinary Genitourinary: absent: Freq UTI - Neurological Neurological: absent: Dizziness, Headaches - Hematologic/Lymphatic Hematologic: As Per HPI Past Patient History - Past Medical History & Family History Past Medical History?: Yes - Past Social History Smoking Status: Unknown If Ever Smoked - CARDIAC Hx Congestive Heart Failure: Yes Hx Hypertension: Yes - PULMONARY Hx Asthma: Yes Hx Chronic Obstructive Pulmonary Disease (COPD): Yes Hx Pneumonia: Yes (Lobar) - NEUROLOGICAL Hx Neurological Disorder: Yes Hx Dizziness: Yes - HEENT Hx HEENT Problems: No - RENAL Hx Chronic Kidney Disease: No - ENDOCRINE/METABOLIC Hx Diabetes Mellitus Type 2: Yes - HEMATOLOGICAL/ONCOLOGICAL Hx Blood Disorders: No Other/Comment: sepsis - INTEGUMENTARY Hx Dermatological Problems: No - MUSCULOSKELETAL/RHEUMATOLOGICAL Hx Falls: Yes - GASTROINTESTINAL Hx Gastrointestinal Disorders: No Hx Gastroesophageal Reflux: Yes - GENITOURINARY/GYNECOLOGICAL Hx Genitourinary Disorders: No Other/Comment: Carcinoma in situ of layrnx - PSYCHIATRIC Hx Substance Use: No - SURGICAL HISTORY Hx Surgeries: Yes Other/Comment: Gastrostomy. tracheostomy - ANESTHESIA Hx Anesthesia: Yes Meds Allergies/Adverse Reactions: Allergies Allergy/AdvReac Type Severity Reaction Status Date / Time No Known Allergies Allergy Verified 04/11/18 11:25 - Medications Medications: Current Medications Acetaminophen (Tylenol 650mg/20.3ml Solution Ud) 650 mg GT Q4 PRN PRN Reason: Pain, moderate (4-7) Al Hydrox/Mg Hydrox/Simethicone (Maalox Plus 30 Ml) 30 ml GT Q4H PRN PRN Reason: Heartburn Albuterol/Ipratropium (Duoneb 3 Mg/0.5 Mg (3 Ml) Ud) 3 ml INH Q6 [facility] Ascorbic Acid (Vitamin C 250 Mg Tab) 250 mg GT DAILY [facility] Aspirin (Aspirin Chewable) 81 mg PO DAILY [facility] Collagenase (Santyl) 0 gm TOP BID [facility] Diltiazem HCl (Cardizem) 30 mg PO Q6 [facility] Enoxaparin Sodium (Lovenox) 40 mg SC DAILY [facility] Folic Acid (Folic Acid) 1 mg GT DAILY [facility] Furosemide (Lasix) 40 mg PEG DAILY [facility] Vancomycin/Sodium Chloride (Vancomycin 1 Gm/Ns 200 Ml) 1 gm in 200 mls @ 166.667 mls/hr IVPB STAT [facility] PRN Reason: Protocol Stop: 04/16/18 16:01 Azithromycin 500 mg/ Sodium (Chloride) 250 mls @ 250 mls/hr IVPB DAILY [facility] PRN Reason: Protocol Ceftriaxone Sodium 1 gm/ (Sodium Chloride) 100 mls @ 100 mls/hr IVPB DAILY [facility] PRN Reason: Protocol Sodium Chloride (Sodium Chloride 0.9%) 1,000 mls @ 20 mls/hr IV .Q24H [facility] Last Admin: 04/11/18 19:30 Dose: 20 mls/hr Magnesium Hydroxide (Milk Of Magnesia) 30 ml GT HS PRN PRN Reason: Constipation Multivitamins/Vitamin C (Multi-Delyn Liquid) 5 ml GT DAILY [facility] Saccharomyces Boulardii (Florastor) 250 mg GT DAILY [facility] Fluticasone/Salmeterol (Advair Diskus 250/50) 1 puff INH RQ12 [facility] Last Admin: 04/11/18 19:51 Dose: 1 puff Tiotropium [place] (Spiriva Inhalation Handihaler Device) 1 inhaler INH DAILY [facility] Zinc Sulfate (Zinc Sulfate 220 Mg Cap) 220 mg GT DAILY [facility] Physical Exam - Constitutional Appears: No Acute Distress, Cachectic, Chronically Ill - Head Exam Head Exam: NORMAL INSPECTION (+VE TRACHEOSYOMY) - Eye Exam Eye Exam: PERRL - ENT Exam ENT Exam: Mucous Membranes Dry - Neck Exam Neck exam: Positive for: Normal Inspection - Respiratory Exam Respiratory Exam: Rhonchi (B/L) - Cardiovascular Exam Cardiovascular Exam: Tachycardia, REGULAR RHYTHM, +S1, +S2 - GI/Abdominal Exam GI & Abdominal Exam: Normal Bowel Sounds, Soft (PEG IN PLACE.) - Extremities Exam Extremities exam: Positive for: pedal pulses present. Negative for: calf tenderness, pedal edema Results - Vital Signs Recent Vital Signs: Last Vital Signs Temp 98.4 F 04/11/18 16:01 Pulse 94 H 04/11/18 19:52 Resp 18 04/11/18 16:01 BP 111/72 04/11/18 16:01 Pulse Ox 98 04/11/18 16:01 - Labs Result Diagrams: 04/11/18 13:36 04/11/18 13:36 Labs: Laboratory Results - last 24 hr 04/11/18 04/11/18 04/11/18 12:20 13:36 13:36 WBC 9.0 D RBC 3.76 L Hgb 10.6 L D Hct 32.2 L MCV 85.8 D MCH 28.3 MCHC 33.0 RDW 17.0 H Plt Count 309 D MPV 7.4 Neut % (Auto) 85.6 H Lymph % (Auto) 5.8 L Gates % (Auto) 8.1 Eos % (Auto) 0.1 Baso % (Auto) 0.4 Neut # (Auto) 7.7 H Lymph # (Auto) 0.5 L Gates # (Auto) 0.7 Eos # (Auto) 0.0 Baso # (Auto) 0.0 Neutrophils % (Manual) 83 H Band Neutrophils % 1 Lymphocytes % (Manual) 8 L Monocytes % (Manual) 8 Platelet Estimate Normal Polychromasia Slight Hypochromasia (manual) Slight Anisocytosis (manual) Slight Target Cells Slight pO2 24 L VBG pH 7.32 VBG pCO2 90 H* VBG HCO3 35.5 VBG Total CO2 49.2 H VBG O2 Sat (Calc) 29.4 L VBG Base Excess 15.7 H VBG Potassium 4.4 Sodium 133.0 132 Chloride 89.0 L 84 L Glucose 140 H Lactate 2.4 H Crit Value Called To Dr.bella roger Crit Value Called By Wilfredo choi,janki Crit Value Read Back Y Blood Gas Notified Time 1230 Potassium 4.5 Carbon Dioxide 38 H Anion Gap 15 BUN 26 H Creatinine 0.4 L Est GFR ( Amer) > 60 Est GFR (Non-Af Amer) > 60 POC Glucose (mg/dL) Random Glucose 138 H Lactic Acid Calcium 8.6 Total Bilirubin 0.6 AST 97 H D ALT 51 Alkaline Phosphatase 111 Troponin I 0.0180 Total Protein 7.8 Albumin 3.3 L D Globulin 4.5 H Albumin/Globulin Ratio 0.7 L Venous Blood Potassium 4.4 04/11/18 04/11/18 17:05 19:46 WBC RBC Hgb Hct MCV MCH MCHC RDW Plt Count MPV Neut % (Auto) Lymph % (Auto) Gates % (Auto) Eos % (Auto) Baso % (Auto) Neut # (Auto) Lymph # (Auto) Gates # (Auto) Eos # (Auto) Baso # (Auto) Neutrophils % (Manual) Band Neutrophils % Lymphocytes % (Manual) Monocytes % (Manual) Platelet Estimate Polychromasia Hypochromasia (manual) Anisocytosis (manual) Target Cells pO2 VBG pH VBG pCO2 VBG HCO3 VBG Total CO2 VBG O2 Sat (Calc) VBG Base Excess VBG Potassium Sodium Chloride Glucose Lactate Crit Value Called To Crit Value Called By Crit Value Read Back Blood Gas Notified Time Potassium Carbon Dioxide Anion Gap BUN Creatinine Est GFR ( Amer) Est GFR (Non-Af Amer) POC Glucose (mg/dL) 94 Random Glucose Lactic Acid 1.3 Calcium Total Bilirubin AST ALT Alkaline Phosphatase Troponin I Total Protein Albumin Globulin Albumin/Globulin Ratio Venous Blood Potassium - Imaging and Cardiology Chest x-ray Status: Report reviewed by me (SEE FULL REPORT) Assessment & Plan (1) Acute on chronic respiratory failure with hypoxia and hypercapnia Assessment and Plan: PANCULTURE ESR CRP. MRSA SCREENING TRACHEAL ASPIRATE SPUTUM FOR CULTURE/AND GRAM STAIN. D/C IV ROCEPHIN. START IV MAXIPINE 1GM IVPB Q 12HRLY.04/11/18 CONTINUE IV ZITHROMAX 500MG IVPB QD DAILY. 04/11/18PATIENT PULMONARY TOILET. Status: Acute (2) Pneumonia Assessment and Plan: ON iv ANTIBIOTICS. fOLLOW-UP CULTURES AND ADJUST ANTIBIOTICS. SPUTUM FOR FUNGUS. Status: Acute (3) COPD (chronic obstructive pulmonary disease) with emphysema Status: Chronic (4) Laryngeal cancer Assessment and Plan: HX OF TRACHEOSTOMY. PULMONARY TOILET Status: Chronic (5) HTN (hypertension) Status: Acute
[2018-04-11 20:43] LABS: URINE BACTERIA RARE (<OCC); URINE BILIRUBIN NEGATIVE (NEGATIVE); URINE BLOOD 1+ (NEGATIVE); URINE CLARITY Hazy (Clear); URINE COLOR Yellow (YELLOW); URINE GLUCOSE (UA) NORMAL (Normal); URINE HYALINE CAST 0-2 /lpf (0-2); URINE LEUKOCYTE ESTERASE NEG Leu/uL (Negative); URINE PROTEIN 1+ mg/dL (NEGATIVE); URINE UROBILINOGEN NORMAL mg/dL (0.2-1.0)
[2018-04-11] MEDS ORDERED: Cefepime IV 1 gm in Dextrose 1 GM/50 ML BAG IVPB SCH (21:15)
[2018-04-11] MEDS: Cefepime IV 1 gm in Dextrose 1 GM/50 ML BAG IVPB SCH (22:33)
[2018-04-12] MEDS ORDERED: Albuterol-Ipratrop 3 mg / 0.5 (3 ml) UD INH SCH
[2018-04-12] MEDS: Albuterol-Ipratrop 3 mg / 0.5 (3 ml) UD INH SCH ×4 (01:22→18:59)
[2018-04-12] MEDS: Fluticasone-Salmeterol 250-50mcg Diskus INH SCH (07:23)
[2018-04-12 07:30] LABS: ALB/GLOB RATIO 0.7 (1.0-2.1); ALBUMIN 3.1 g/dL (3.5-5.0); BILIRUBIN,DIRECT 0.4 mg/dL (0.0-0.4)
[2018-04-12] MEDS: Enoxaparin 40 mg Syringe SC SCH (09:44)
[2018-04-12] MEDS: Multiple Vitamins Oral Solution GT SCH (09:44)
[2018-04-12] MEDS: Cefepime IV 1 gm in Dextrose 1 GM/50 ML BAG IVPB SCH ×2 (09:44→21:38)
[2018-04-12] MEDS: Collagenase 250 Units/gm Ointment(30 gm) TOP SCH ×2 (09:45→18:28)
[2018-04-12] MEDS: Saccharomyces Boulardi 250 mg Cap GT SCH (09:45)
[2018-04-12] MEDS: Azithromycin 500 MG in Sodium Chloride 0.9% 250 ML IVPB SCH (09:53)
--- NOTE | 2018-04-12 11:38 | CP.PCM.PN ---
Subjective - Date & Time of Evaluation Date of Evaluation: 04/12/18 Time of Evaluation: 09:00 - Subjective Subjective: patient has no complaints. appears comfortable. Objective - Vital Signs/Intake and Output Vital Signs (last 24 hours): Temp Pulse Resp BP Pulse Ox 98.1 F 93 H 20 109/65 100 04/12/18 08:26 04/12/18 08:26 04/12/18 08:26 04/12/18 09:46 04/12/18 08:26 Intake and Output: 04/12/18 04/12/18 06:59 18:59 Intake Total 850 Output Total 1225 Balance -375 - Medications Medications: Current Medications Acetaminophen (Tylenol 650mg/20.3ml Solution Ud) 650 mg GT Q4 PRN PRN Reason: Pain, moderate (4-7) Al Hydrox/Mg Hydrox/Simethicone (Maalox Plus 30 Ml) 30 ml GT Q4H PRN PRN Reason: Heartburn Albuterol/Ipratropium (Duoneb 3 Mg/0.5 Mg (3 Ml) Ud) 3 ml INH RQ6 [facility] Last Admin: 04/12/18 07:23 Dose: 3 ml Ascorbic Acid (Vitamin C 250 Mg Tab) 250 mg GT DAILY [facility] Last Admin: 04/12/18 09:44 Dose: 250 mg Aspirin (Aspirin Chewable) 81 mg PO DAILY [facility] Last Admin: 04/12/18 09:46 Dose: 81 mg Collagenase (Santyl) 0 gm TOP BID [facility] Last Admin: 04/12/18 09:45 Dose: 1 applic Diltiazem HCl (Cardizem) 30 mg PO Q6 [facility] Last Admin: 04/12/18 05:42 Dose: 30 mg Enoxaparin Sodium (Lovenox) 40 mg SC DAILY [facility] Last Admin: 04/12/18 09:44 Dose: 40 mg Folic Acid (Folic Acid) 1 mg GT DAILY [facility] Last Admin: 04/12/18 09:46 Dose: 1 mg Furosemide (Lasix) 40 mg PEG DAILY [facility] Last Admin: 04/12/18 09:46 Dose: 40 mg Vancomycin/Sodium Chloride (Vancomycin 1 Gm/Ns 200 Ml) 1 gm in 200 mls @ 166.667 mls/hr IVPB STAT [facility] PRN Reason: Protocol Stop: 04/16/18 16:01 Azithromycin 500 mg/ Sodium (Chloride) 250 mls @ 250 mls/hr IVPB DAILY [facility] PRN Reason: Protocol Last Admin: 04/12/18 09:53 Dose: 250 mls/hr Sodium Chloride (Sodium Chloride 0.9%) 1,000 mls @ 20 mls/hr IV .Q24H [facility] Last Admin: 04/11/18 19:30 Dose: 20 mls/hr Cefepime HCl (Maxipime Iv 1 Gm Premix) 1 gm in 50 mls @ 100 mls/hr IVPB Q12H [facility] PRN Reason: Protocol Last Admin: 04/12/18 09:44 Dose: 100 mls/hr Magnesium Hydroxide (Milk Of Magnesia) 30 ml GT HS PRN PRN Reason: Constipation Multivitamins/Vitamin C (Multi-Delyn Liquid) 5 ml GT DAILY [facility] Last Admin: 04/12/18 09:44 Dose: 5 ml Saccharomyces Boulardii (Florastor) 250 mg GT DAILY [facility] Last Admin: 04/12/18 09:45 Dose: 250 mg Fluticasone/Salmeterol (Advair Diskus 250/50) 1 puff INH RQ12 [facility] Last Admin: 04/12/18 07:23 Dose: Not Given Tiotropium [place] (Spiriva Inhalation Handihaler Device) 1 inhaler INH DAILY [facility] Zinc Sulfate (Zinc Sulfate 220 Mg Cap) 220 mg GT DAILY [facility] Last Admin: 04/12/18 10:01 Dose: 220 mg - Labs Labs: 04/11/18 13:36 04/11/18 13:36 - Constitutional Appears: Non-toxic - Head Exam Head Exam: NORMAL INSPECTION - Eye Exam Eye Exam: Normal appearance - ENT Exam ENT Exam: Mucous Membranes Moist - Neck Exam Neck Exam: Full ROM - Respiratory Exam Respiratory Exam: Decreased Breath Sounds - Cardiovascular Exam Cardiovascular Exam: REGULAR RHYTHM - GI/Abdominal Exam GI & Abdominal Exam: Normal Bowel Sounds - Rectal Exam Rectal Exam: Deferred - Extremities Exam Extremities Exam: Full ROM - Back Exam Back Exam: NORMAL INSPECTION - Neurological Exam Neurological Exam: Alert - Psychiatric Exam Psychiatric exam: Normal Affect - Skin Skin Exam: Warm Assessment and Plan (1) COPD (chronic obstructive pulmonary disease) with emphysema Assessment & Plan: continue medical therapy Status: Chronic (2) HTN (hypertension) Assessment & Plan: blood pressure Status: Acute
--- NOTE | 2018-04-12 17:39 | CP.PCM.CON ---
History of Present Illness - History of Present Illness History of Present Illness: Reason for Consult: Hx of COPD, desaturation 72 year old with PMHx of Laryngeal Cancer, COPD, Asthma, HTN, and CHF, who presented to the ED on 04/11 for hypoxia and tachycardia. Patient was sent by his senior care to the ED because his O2 saturation dropped to 58%. Patient was previously hospitalized in January 2018. Patient was unable to verbalize answers to questions. Patient seen at bedside and was resting comfortably in no acute distress. Patient's O2 saturation improved. PMHx: Laryngeal Cancer, COPD, Asthma, HTN, CHF PSHx: Gastrostomy, Tracheostomy Allergies: NKDA Social Hx: Patient lives in a senior care. Further social history unobtainable. Assessment/Plan: 1. COPD Exacerbation - CXR 04/11: Previously noted consolidation changes seen in left upper lobe slightly improved. Patchy consolidation changes in right upper and right mid lung zone also improved. Small cavitation changes in right and left upper lobes. Underlying emphysema and fibrosis are present throughout. - Continue Duoneb 2. Tracheobronchitis - Lactate 03/15: 2.4 - WBC 04/11: 9.0 - Continue Vancomycin - Continue Cefepime 3. Hypertension - Management per primary team Past Patient History - Past Medical History & Family History Past Medical History?: Yes - Past Social History Smoking Status: Unknown If Ever Smoked - CARDIAC Hx Congestive Heart Failure: Yes Hx Hypertension: Yes - PULMONARY Hx Asthma: Yes Hx Chronic Obstructive Pulmonary Disease (COPD): Yes Hx Pneumonia: Yes (Lobar) - NEUROLOGICAL Hx Neurological Disorder: Yes Hx Dizziness: Yes - HEENT Hx HEENT Problems: No - RENAL Hx Chronic Kidney Disease: No - ENDOCRINE/METABOLIC Hx Diabetes Mellitus Type 2: Yes - HEMATOLOGICAL/ONCOLOGICAL Hx Blood Disorders: No Other/Comment: sepsis - INTEGUMENTARY Hx Dermatological Problems: No - MUSCULOSKELETAL/RHEUMATOLOGICAL Hx Falls: Yes - GASTROINTESTINAL Hx Gastrointestinal Disorders: No Hx Gastroesophageal Reflux: Yes - GENITOURINARY/GYNECOLOGICAL Hx Genitourinary Disorders: No Other/Comment: Carcinoma in situ of layrnx - PSYCHIATRIC Hx Substance Use: No - SURGICAL HISTORY Hx Surgeries: Yes Other/Comment: Gastrostomy. tracheostomy - ANESTHESIA Hx Anesthesia: Yes Meds Allergies/Adverse Reactions: Allergies Allergy/AdvReac Type Severity Reaction Status Date / Time No Known Allergies Allergy Verified 04/11/18 11:25 - Medications Medications: Current Medications Acetaminophen (Tylenol 650mg/20.3ml Solution Ud) 650 mg GT Q4 PRN PRN Reason: Pain, moderate (4-7) Al Hydrox/Mg Hydrox/Simethicone (Maalox Plus 30 Ml) 30 ml GT Q4H PRN PRN Reason: Heartburn Albuterol/Ipratropium (Duoneb 3 Mg/0.5 Mg (3 Ml) Ud) 3 ml INH RQ6 [facility] Last Admin: 04/12/18 13:31 Dose: 3 ml Ascorbic Acid (Vitamin C 250 Mg Tab) 250 mg GT DAILY [facility] Last Admin: 04/12/18 09:44 Dose: 250 mg Aspirin (Aspirin Chewable) 81 mg PO DAILY [facility] Last Admin: 04/12/18 09:46 Dose: 81 mg Collagenase (Santyl) 0 gm TOP BID [facility] Last Admin: 04/12/18 09:45 Dose: 1 applic Diltiazem HCl (Cardizem) 30 mg PO Q6 [facility] Last Admin: 04/12/18 12:07 Dose: 30 mg Enoxaparin Sodium (Lovenox) 40 mg SC DAILY [facility] Last Admin: 04/12/18 09:44 Dose: 40 mg Folic Acid (Folic Acid) 1 mg GT DAILY [facility] Last Admin: 04/12/18 09:46 Dose: 1 mg Furosemide (Lasix) 40 mg PEG DAILY [facility] Last Admin: 04/12/18 09:46 Dose: 40 mg Vancomycin/Sodium Chloride (Vancomycin 1 Gm/Ns 200 Ml) 1 gm in 200 mls @ 166.667 mls/hr IVPB STAT [facility] PRN Reason: Protocol Stop: 04/16/18 16:01 Azithromycin 500 mg/ Sodium (Chloride) 250 mls @ 250 mls/hr IVPB DAILY [facility] PRN Reason: Protocol Last Admin: 04/12/18 09:53 Dose: 250 mls/hr Sodium Chloride (Sodium Chloride 0.9%) 1,000 mls @ 20 mls/hr IV .Q24H [facility] Last Admin: 04/11/18 19:30 Dose: 20 mls/hr Cefepime HCl (Maxipime Iv 1 Gm Premix) 1 gm in 50 mls @ 100 mls/hr IVPB Q12H [facility] PRN Reason: Protocol Last Admin: 04/12/18 09:44 Dose: 100 mls/hr Magnesium Hydroxide (Milk Of Magnesia) 30 ml GT HS PRN PRN Reason: Constipation Multivitamins/Vitamin C (Multi-Delyn Liquid) 5 ml GT DAILY [facility] Last Admin: 04/12/18 09:44 Dose: 5 ml Saccharomyces Boulardii (Florastor) 250 mg GT DAILY [facility] Last Admin: 04/12/18 09:45 Dose: 250 mg Fluticasone/Salmeterol (Advair Diskus 250/50) 1 puff INH RQ12 [facility] Last Admin: 04/12/18 07:23 Dose: Not Given Tiotropium [place] (Spiriva Inhalation Handihaler Device) 1 inhaler INH DAILY [facility] Zinc Sulfate (Zinc Sulfate 220 Mg Cap) 220 mg GT DAILY [facility] Last Admin: 04/12/18 10:01 Dose: 220 mg Results - Vital Signs Recent Vital Signs: Last Vital Signs Temp 97.4 F L 04/12/18 15:00 Pulse 85 04/12/18 15:46 Resp 20 04/12/18 15:00 BP 105/63 04/12/18 15:00 Pulse Ox 94 L 04/12/18 15:00 - Labs Result Diagrams: 04/11/18 13:36 04/11/18 13:36 Labs: Laboratory Results - last 24 hr 04/11/18 04/11/18 04/11/18 19:46 20:29 22:15 ESR POC Glucose (mg/dL) 109 Lactic Acid 1.3 Total Bilirubin Direct Bilirubin AST ALT Alkaline Phosphatase C-React Prot High Sens Total Protein Albumin Globulin Albumin/Globulin Ratio Urine Color Yellow Urine Clarity Hazy Urine pH 5.0 Ur Specific [place] 1.021 Urine Protein 1+ H Urine Glucose (UA) Normal Urine Ketones Negative Urine Blood 1+ H Urine Nitrate Negative Urine Bilirubin Negative Urine Urobilinogen Normal Ur Leukocyte Esterase Neg Urine WBC (Auto) 12 H Urine RBC (Auto) 11 H Urine Bacteria Rare Hyaline Casts 0-2 04/12/18 04/12/18 04/12/18 06:04 06:14 06:14 ESR 131 H POC Glucose (mg/dL) 105 Lactic Acid Total Bilirubin Direct Bilirubin AST ALT Alkaline Phosphatase C-React Prot High Sens > 15.00 H Total Protein Albumin Globulin Albumin/Globulin Ratio Urine Color Urine Clarity Urine pH Ur Specific [place] Urine Protein Urine Glucose (UA) Urine Ketones Urine Blood Urine Nitrate Urine Bilirubin Urine Urobilinogen Ur Leukocyte Esterase Urine WBC (Auto) Urine RBC (Auto) Urine Bacteria Hyaline Casts 04/12/18 04/12/18 04/12/18 06:14 11:33 16:55 ESR POC Glucose (mg/dL) 156 H 126 H Lactic Acid Total Bilirubin 0.6 Direct Bilirubin 0.4 AST 52 ALT 35 Alkaline Phosphatase 105 C-React Prot High Sens Total Protein 7.2 Albumin 3.1 L Globulin 4.2 H Albumin/Globulin Ratio 0.7 L Urine Color Urine Clarity Urine pH Ur Specific [place] Urine Protein Urine Glucose (UA) Urine Ketones Urine Blood Urine Nitrate Urine Bilirubin Urine Urobilinogen Ur Leukocyte Esterase Urine WBC (Auto) Urine RBC (Auto) Urine Bacteria Hyaline Casts
--- NOTE | 2018-04-12 18:30 | CP.PCM.PN ---
Subjective - Date & Time of Evaluation Date of Evaluation: 04/12/18 Time of Evaluation: 11:40 - Subjective Subjective: clinically same Objective - Vital Signs/Intake and Output Vital Signs (last 24 hours): Temp Pulse Resp BP Pulse Ox 97.4 F L 98 H 18 109/69 100 04/12/18 15:00 04/12/18 18:28 04/12/18 18:28 04/12/18 18:28 04/12/18 18:28 Intake and Output: 04/12/18 04/12/18 06:59 18:59 Intake Total 850 Output Total 1225 Balance -375 - Medications Medications: Current Medications Acetaminophen (Tylenol 650mg/20.3ml Solution Ud) 650 mg GT Q4 PRN PRN Reason: Pain, moderate (4-7) Al Hydrox/Mg Hydrox/Simethicone (Maalox Plus 30 Ml) 30 ml GT Q4H PRN PRN Reason: Heartburn Albuterol/Ipratropium (Duoneb 3 Mg/0.5 Mg (3 Ml) Ud) 3 ml INH RQ6 [facility] Last Admin: 04/12/18 13:31 Dose: 3 ml Ascorbic Acid (Vitamin C 250 Mg Tab) 250 mg GT DAILY [facility] Last Admin: 04/12/18 09:44 Dose: 250 mg Aspirin (Aspirin Chewable) 81 mg PO DAILY [facility] Last Admin: 04/12/18 09:46 Dose: 81 mg Collagenase (Santyl) 0 gm TOP BID [facility] Last Admin: 04/12/18 18:28 Dose: 1 applic Diltiazem HCl (Cardizem) 30 mg PO Q6 [facility] Last Admin: 04/12/18 18:27 Dose: 30 mg Enoxaparin Sodium (Lovenox) 40 mg SC DAILY [facility] Last Admin: 04/12/18 09:44 Dose: 40 mg Folic Acid (Folic Acid) 1 mg GT DAILY [facility] Last Admin: 04/12/18 09:46 Dose: 1 mg Furosemide (Lasix) 40 mg PEG DAILY [facility] Last Admin: 04/12/18 09:46 Dose: 40 mg Vancomycin/Sodium Chloride (Vancomycin 1 Gm/Ns 200 Ml) 1 gm in 200 mls @ 166.667 mls/hr IVPB STAT [facility] PRN Reason: Protocol Stop: 04/16/18 16:01 Azithromycin 500 mg/ Sodium (Chloride) 250 mls @ 250 mls/hr IVPB DAILY [facility] PRN Reason: Protocol Last Admin: 04/12/18 09:53 Dose: 250 mls/hr Sodium Chloride (Sodium Chloride 0.9%) 1,000 mls @ 20 mls/hr IV .Q24H [facility] Last Admin: 04/11/18 19:30 Dose: 20 mls/hr Cefepime HCl (Maxipime Iv 1 Gm Premix) 1 gm in 50 mls @ 100 mls/hr IVPB Q12H [facility] PRN Reason: Protocol Last Admin: 04/12/18 09:44 Dose: 100 mls/hr Magnesium Hydroxide (Milk Of Magnesia) 30 ml GT HS PRN PRN Reason: Constipation Multivitamins/Vitamin C (Multi-Delyn Liquid) 5 ml GT DAILY [facility] Last Admin: 04/12/18 09:44 Dose: 5 ml Saccharomyces Boulardii (Florastor) 250 mg GT DAILY [facility] Last Admin: 04/12/18 09:45 Dose: 250 mg Zinc Sulfate (Zinc Sulfate 220 Mg Cap) 220 mg GT DAILY [facility] Last Admin: 04/12/18 10:01 Dose: 220 mg - Labs Labs: 04/11/18 13:36 04/11/18 13:36 - Constitutional Appears: Well - Head Exam Head Exam: ATRAUMATIC, NORMAL INSPECTION, NORMOCEPHALIC - Eye Exam Eye Exam: EOMI, Normal appearance, PERRL Pupil Exam: NORMAL ACCOMODATION, PERRL - ENT Exam ENT Exam: Mucous Membranes Moist, Normal Exam - Neck Exam Neck Exam: Full ROM, Normal Inspection. absent: Lymphadenopathy - Respiratory Exam Respiratory Exam: Decreased Breath Sounds - Cardiovascular Exam Cardiovascular Exam: REGULAR RHYTHM, +S1, +S2 - GI/Abdominal Exam GI & Abdominal Exam: Soft, Diminished Bowel Sounds - Rectal Exam Rectal Exam: Deferred
--- NOTE | 2018-04-12 22:35 | CP.PCM.PN ---
Subjective - Date & Time of Evaluation Date of Evaluation: 04/12/18 Time of Evaluation: 22:34 - Subjective Subjective: CHIEF COMPLAINTS TODAY : afebrile, Very weak and chronically ill +ve tracheostomy +ve secretions thick ROS. on observation only HEENT : N. Resp : No cough, wheezing ,pleuritic CP ,or hemoptysis Cardio : No anginal CP, PND, orthopnea, palpitation GI : No abd.pain, n/v ,diarrhea or GI bleeding . [employer] : No headache, vertigo, focal deficit. Musculoskel : No joint swelling , Derm : No rash Psych : Normal affect. Ext : No swelling ,calf pain PE. Pt. is alert awake in no distress. V.S As noted in the chart Head ,ear nose,throat and eyes : Normal. +ve TRACHEOSTOMY Neck : Supple with normal carotids. Lungs: PROLONGED EXPIRATORY PHASE Heart : S1 & S2 normal with S4. No murmur. Abd : Soft non tender with normal bowel sounds. Neuro : Moves all ext. with no localized deficit. Ext : No edema with intact pulses.Non tender calves Derm : No rashes or decubitus ulcer. LABS/RADIOLOGY: REVIEWED BLOOD CULTURES NEGATIVE GROWTH X 24 HOURS. ASSESSMENT/PLAN : CONTINUE ANTIBIOTICS PATIENT ON MAXIPIME, ZITHROMAX, VANCOMYCIN. AWAIT CULTURES SUCTION WHEN NECESSARY aS PER PULMONARY. Objective - Vital Signs/Intake and Output Vital Signs (last 24 hours): Temp Pulse Resp BP Pulse Ox 97.4 F L 98 H 18 109/69 100 04/12/18 15:00 04/12/18 18:28 04/12/18 18:28 04/12/18 18:28 04/12/18 18:28 Intake and Output: 04/12/18 04/13/18 18:59 06:59 Output Total 300 350 Balance -300 -350 - Medications Medications: Current Medications Acetaminophen (Tylenol 650mg/20.3ml Solution Ud) 650 mg GT Q4 PRN PRN Reason: Pain, moderate (4-7) Al Hydrox/Mg Hydrox/Simethicone (Maalox Plus 30 Ml) 30 ml GT Q4H PRN PRN Reason: Heartburn Albuterol/Ipratropium (Duoneb 3 Mg/0.5 Mg (3 Ml) Ud) 3 ml INH RQ6 [facility] Last Admin: 04/12/18 18:59 Dose: 3 ml Ascorbic Acid (Vitamin C 250 Mg Tab) 250 mg GT DAILY [facility] Last Admin: 04/12/18 09:44 Dose: 250 mg Aspirin (Aspirin Chewable) 81 mg PO DAILY [facility] Last Admin: 04/12/18 09:46 Dose: 81 mg Collagenase (Santyl) 0 gm TOP BID [facility] Last Admin: 04/12/18 18:28 Dose: 1 applic Diltiazem HCl (Cardizem) 30 mg PO Q6 [facility] Last Admin: 04/12/18 18:27 Dose: 30 mg Enoxaparin Sodium (Lovenox) 40 mg SC DAILY [facility] Last Admin: 04/12/18 09:44 Dose: 40 mg Folic Acid (Folic Acid) 1 mg GT DAILY [facility] Last Admin: 04/12/18 09:46 Dose: 1 mg Furosemide (Lasix) 40 mg PEG DAILY [facility] Last Admin: 04/12/18 09:46 Dose: 40 mg Vancomycin/Sodium Chloride (Vancomycin 1 Gm/Ns 200 Ml) 1 gm in 200 mls @ 166.667 mls/hr IVPB STAT [facility] PRN Reason: Protocol Stop: 04/16/18 16:01 Azithromycin 500 mg/ Sodium (Chloride) 250 mls @ 250 mls/hr IVPB DAILY [facility] PRN Reason: Protocol Last Admin: 04/12/18 09:53 Dose: 250 mls/hr Sodium Chloride (Sodium Chloride 0.9%) 1,000 mls @ 20 mls/hr IV .Q24H [facility] Last Admin: 04/11/18 19:30 Dose: 20 mls/hr Cefepime HCl (Maxipime Iv 1 Gm Premix) 1 gm in 50 mls @ 100 mls/hr IVPB Q12H [facility] PRN Reason: Protocol Last Admin: 04/12/18 21:38 Dose: 100 mls/hr Magnesium Hydroxide (Milk Of Magnesia) 30 ml GT HS PRN PRN Reason: Constipation Multivitamins/Vitamin C (Multi-Delyn Liquid) 5 ml GT DAILY [facility] Last Admin: 04/12/18 09:44 Dose: 5 ml Saccharomyces Boulardii (Florastor) 250 mg GT DAILY [facility] Last Admin: 04/12/18 09:45 Dose: 250 mg Zinc Sulfate (Zinc Sulfate 220 Mg Cap) 220 mg GT DAILY [facility] Last Admin: 04/12/18 10:01 Dose: 220 mg - Labs Labs: 04/11/18 13:36 04/11/18 13:36 Assessment and Plan (1) Acute on chronic respiratory failure with hypoxia and hypercapnia Status: Acute (2) Pneumonia Status: Acute (3) COPD (chronic obstructive pulmonary disease) with emphysema Status: Chronic (4) Laryngeal cancer Status: Chronic (5) HTN (hypertension) Status: Acute
--- NOTE | 2018-04-12 23:53 | CARD ---
APPROVED REPORT EKG Measurement Heart [id number] <Conclusion> Sinus tachycardia Right atrial enlargement Nonspecific ST and T wave abnormality Abnormal ECG
[2018-04-13] MEDS: Albuterol-Ipratrop 3 mg / 0.5 (3 ml) UD INH SCH ×4 (01:44→19:15)
[2018-04-13] MEDS: Enoxaparin 40 mg Syringe SC SCH (09:38)
[2018-04-13] MEDS: Cefepime IV 1 gm in Dextrose 1 GM/50 ML BAG IVPB SCH ×2 (09:38→21:13)
[2018-04-13] MEDS: Saccharomyces Boulardi 250 mg Cap GT SCH (09:39)
[2018-04-13] MEDS: Multiple Vitamins Oral Solution GT SCH (09:39)
[2018-04-13 11:00] LABS: BASO % 0.2 % (0.0-2.0); EOS # 0.3 K/uL (0.0-0.7); EOS % 4.5 % (0.0-4.0); HEMOGLOBIN 9.8 g/dL (12.0-18.0); LYMPH % 18.7 % (20.0-40.0); MEAN CELL VOLUME 86.4 fL (80.0-94.0); MEAN CORPUSCULAR HEMOGLOBIN 28.3 pg (27.0-31.0); MEAN CORPUSCULAR HGB CONC 32.7 g/dL (33.0-37.0); MEAN PLATELET VOLUME 7.1 fL (7.2-11.7); MONO # 0.6 K/uL (0.0-0.8); MONO % 11.5 % (0.0-10.0); NEUT # 3.6 K/uL (1.8-7.0); NEUT % 65.1 % (50.0-75.0); RBC 3.48 Mil/uL (4.40-5.90); RED CELL DISTRIBUTION WIDTH 16.6 % (11.5-14.5); WHITE BLOOD COUNT 5.5 K/uL (4.8-10.8)
[2018-04-13] MEDS: Collagenase 250 Units/gm Ointment(30 gm) TOP SCH ×2 (11:00→18:13)
[2018-04-13] MEDS: Azithromycin 500 MG in Sodium Chloride 0.9% 250 ML IVPB SCH (11:03)
[2018-04-13 12:10] LABS: BLOOD UREA NITROGEN 18 mg/dL (9-20); GFR AFRICAN-AMERICAN > 60; GFR NON-AFRICAN AMERICAN > 60
--- NOTE | 2018-04-13 15:23 | CP.PCM.PN ---
Subjective - Date & Time of Evaluation Date of Evaluation: 04/13/18 Time of Evaluation: 11:15 - Subjective Subjective: Patient seen and examined at bedside today. Patient was resting comfortably in no acute distress. Review of systems unobtainable. Assessment/Plan: 1. COPD Exacerbation - CXR 04/11: Previously noted consolidation changes seen in left upper lobe slightly improved. Patchy consolidation changes in right upper and right mid lung zone also improved. Small cavitation changes in right and left upper lobes. Underlying emphysema and fibrosis are present throughout. - Continue Duoneb - Continue Spiriva 2. Tracheobronchitis - Awaiting Sputum Cultures - Lactate 03/15: 2.4 - WBC 04/11: 9.0, awaiting repeat CBC - Continue Vancomycin - Continue Cefepime 3. Elevated ESR - ESR 04/13: 131 3. Hypertension - Management per primary team Objective - Vital Signs/Intake and Output Vital Signs (last 24 hours): Temp Pulse Resp BP Pulse Ox 98.0 F 87 20 111/69 96 04/13/18 08:42 04/13/18 08:53 04/13/18 08:42 04/13/18 09:40 04/13/18 08:42 Intake and Output: 04/13/18 04/13/18 06:59 18:59 Intake Total 580 Output Total 550 Balance 30 - Medications Medications: Current Medications Acetaminophen (Tylenol 650mg/20.3ml Solution Ud) 650 mg GT Q4 PRN PRN Reason: Pain, moderate (4-7) Al Hydrox/Mg Hydrox/Simethicone (Maalox Plus 30 Ml) 30 ml GT Q4H PRN PRN Reason: Heartburn Albuterol/Ipratropium (Duoneb 3 Mg/0.5 Mg (3 Ml) Ud) 3 ml INH RQ6 [facility] Last Admin: 04/13/18 13:20 Dose: 3 ml Ascorbic Acid (Vitamin C 250 Mg Tab) 250 mg GT DAILY [facility] Last Admin: 04/13/18 09:39 Dose: 250 mg Aspirin (Aspirin Chewable) 81 mg PO DAILY [facility] Last Admin: 04/13/18 09:39 Dose: 81 mg Collagenase (Santyl) 0 gm TOP BID [facility] Last Admin: 04/13/18 11:00 Dose: 1 applic Diltiazem HCl (Cardizem) 30 mg PO Q6 [facility] Last Admin: 04/13/18 13:21 Dose: 30 mg Enoxaparin Sodium (Lovenox) 40 mg SC DAILY [facility] Last Admin: 04/13/18 09:38 Dose: 40 mg Folic Acid (Folic Acid) 1 mg GT DAILY [facility] Last Admin: 04/13/18 09:39 Dose: 1 mg Furosemide (Lasix) 40 mg PEG DAILY [facility] Last Admin: 04/13/18 09:40 Dose: 40 mg Vancomycin/Sodium Chloride (Vancomycin 1 Gm/Ns 200 Ml) 1 gm in 200 mls @ 166.667 mls/hr IVPB STAT [facility] PRN Reason: Protocol Stop: 04/16/18 16:01 Azithromycin 500 mg/ Sodium (Chloride) 250 mls @ 250 mls/hr IVPB DAILY [facility] PRN Reason: Protocol Last Admin: 04/13/18 11:03 Dose: 250 mls/hr Sodium Chloride (Sodium Chloride 0.9%) 1,000 mls @ 20 mls/hr IV .Q24H [facility] Last Admin: 04/11/18 19:30 Dose: 20 mls/hr Cefepime HCl (Maxipime Iv 1 Gm Premix) 1 gm in 50 mls @ 100 mls/hr IVPB Q12H [facility] PRN Reason: Protocol Last Admin: 04/13/18 09:38 Dose: 100 mls/hr Magnesium Hydroxide (Milk Of Magnesia) 30 ml GT HS PRN PRN Reason: Constipation Multivitamins/Vitamin C (Multi-Delyn Liquid) 5 ml GT DAILY [facility] Last Admin: 04/13/18 09:39 Dose: 5 ml Saccharomyces Boulardii (Florastor) 250 mg GT DAILY [facility] Last Admin: 04/13/18 09:39 Dose: 250 mg Zinc Sulfate (Zinc Sulfate 220 Mg Cap) 220 mg GT DAILY [facility] Last Admin: 04/13/18 09:39 Dose: 220 mg - Labs Labs: 04/13/18 10:53 04/13/18 10:53
--- NOTE | 2018-04-13 16:41 | CP.PCM.PN ---
Subjective - Date & Time of Evaluation Date of Evaluation: 04/13/18 Time of Evaluation: 16:41 - Subjective Subjective: CHIEF COMPLAINTS TODAY : afebrile, Very weak and chronically ill +ve tracheostomy +ve secretions thick ROS. on observation only HEENT : N. Resp : No cough, wheezing ,pleuritic CP ,or hemoptysis Cardio : No anginal CP, PND, orthopnea, palpitation GI : No abd.pain, n/v ,diarrhea or GI bleeding . [employer]AFETY COMPANION : No headache, vertigo, focal deficit. Musculoskel : No joint swelling , Derm : No rash Psych : Normal affect. Ext : No swelling ,calf pain PE. Pt. is alert awake in no distress. V.S As noted in the chart Head ,ear nose,throat and eyes : Normal. +ve TRACHEOSTOMY Neck : Supple with normal carotids. Lungs: PROLONGED EXPIRATORY PHASE Heart : S1 & S2 normal with S4. No murmur. Abd : Soft non tender with normal bowel sounds. Neuro : Moves all ext. with no localized deficit. Ext : No edema with intact pulses.Non tender calves Derm : No rashes or decubitus ulcer. LABS/RADIOLOGY: REVIEWED BLOOD CULTURES NEGATIVE GROWTH X 48HRS SPUTUM--GRAM-NEGATIVE RODS. ASSESSMENT/PLAN : CONTINUE ANTIBIOTICS PATIENT ON MAXIPIME, ZITHROMAX, VANCOMYCIN. AWAIT CULTURES TO ADJUST ANTIBIOTICS. SUCTION WHEN NECESSARY aS PER PULMONARY. Objective - Vital Signs/Intake and Output Vital Signs (last 24 hours): Temp Pulse Resp BP Pulse Ox 98.0 F 87 20 111/69 96 04/13/18 08:42 04/13/18 08:53 04/13/18 08:42 04/13/18 09:40 04/13/18 08:42 Intake and Output: 04/13/18 04/13/18 06:59 18:59 Intake Total 580 Output Total 550 Balance 30 - Medications Medications: Current Medications Acetaminophen (Tylenol 650mg/20.3ml Solution Ud) 650 mg GT Q4 PRN PRN Reason: Pain, moderate (4-7) Al Hydrox/Mg Hydrox/Simethicone (Maalox Plus 30 Ml) 30 ml GT Q4H PRN PRN Reason: Heartburn Albuterol/Ipratropium (Duoneb 3 Mg/0.5 Mg (3 Ml) Ud) 3 ml INH RQ6 [facility] Last Admin: 04/13/18 13:20 Dose: 3 ml Ascorbic Acid (Vitamin C 250 Mg Tab) 250 mg GT DAILY [facility] Last Admin: 04/13/18 09:39 Dose: 250 mg Aspirin (Aspirin Chewable) 81 mg PO DAILY [facility] Last Admin: 04/13/18 09:39 Dose: 81 mg Collagenase (Santyl) 0 gm TOP BID [facility] Last Admin: 04/13/18 11:00 Dose: 1 applic Diltiazem HCl (Cardizem) 30 mg PO Q6 [facility] Last Admin: 04/13/18 13:21 Dose: 30 mg Enoxaparin Sodium (Lovenox) 40 mg SC DAILY [facility] Last Admin: 04/13/18 09:38 Dose: 40 mg Folic Acid (Folic Acid) 1 mg GT DAILY [facility] Last Admin: 04/13/18 09:39 Dose: 1 mg Furosemide (Lasix) 40 mg PEG DAILY [facility] Last Admin: 04/13/18 09:40 Dose: 40 mg Vancomycin/Sodium Chloride (Vancomycin 1 Gm/Ns 200 Ml) 1 gm in 200 mls @ 166.667 mls/hr IVPB STAT [facility] PRN Reason: Protocol Stop: 04/16/18 16:01 Azithromycin 500 mg/ Sodium (Chloride) 250 mls @ 250 mls/hr IVPB DAILY [facility] PRN Reason: Protocol Last Admin: 04/13/18 11:03 Dose: 250 mls/hr Sodium Chloride (Sodium Chloride 0.9%) 1,000 mls @ 20 mls/hr IV .Q24H [facility] Last Admin: 04/11/18 19:30 Dose: 20 mls/hr Cefepime HCl (Maxipime Iv 1 Gm Premix) 1 gm in 50 mls @ 100 mls/hr IVPB Q12H [facility] PRN Reason: Protocol Last Admin: 04/13/18 09:38 Dose: 100 mls/hr Magnesium Hydroxide (Milk Of Magnesia) 30 ml GT HS PRN PRN Reason: Constipation Multivitamins/Vitamin C (Multi-Delyn Liquid) 5 ml GT DAILY [facility] Last Admin: 04/13/18 09:39 Dose: 5 ml Saccharomyces Boulardii (Florastor) 250 mg GT DAILY [facility] Last Admin: 04/13/18 09:39 Dose: 250 mg Zinc Sulfate (Zinc Sulfate 220 Mg Cap) 220 mg GT DAILY [facility] Last Admin: 04/13/18 09:39 Dose: 220 mg - Labs Labs: 04/13/18 10:53 04/13/18 10:53 Assessment and Plan (1) Acute on chronic respiratory failure with hypoxia and hypercapnia Status: Acute (2) Pneumonia Status: Acute (3) COPD (chronic obstructive pulmonary disease) with emphysema Status: Chronic (4) Laryngeal cancer Status: Chronic (5) HTN (hypertension) Status: Acute
--- NOTE | 2018-04-13 19:24 | CP.PCM.PN ---
Subjective - Date & Time of Evaluation Date of Evaluation: 04/13/18 Time of Evaluation: 11:00 - Subjective Subjective: clinically same Objective - Vital Signs/Intake and Output Vital Signs (last 24 hours): Temp Pulse Resp BP Pulse Ox 97.9 F 85 20 115/73 97 04/13/18 15:00 04/13/18 15:00 04/13/18 15:00 04/13/18 15:00 04/13/18 15:00 - Medications Medications: Current Medications Acetaminophen (Tylenol 650mg/20.3ml Solution Ud) 650 mg GT Q4 PRN PRN Reason: Pain, moderate (4-7) Al Hydrox/Mg Hydrox/Simethicone (Maalox Plus 30 Ml) 30 ml GT Q4H PRN PRN Reason: Heartburn Albuterol/Ipratropium (Duoneb 3 Mg/0.5 Mg (3 Ml) Ud) 3 ml INH RQ6 [facility] Last Admin: 04/13/18 19:15 Dose: 3 ml Ascorbic Acid (Vitamin C 250 Mg Tab) 250 mg GT DAILY [facility] Last Admin: 04/13/18 09:39 Dose: 250 mg Aspirin (Aspirin Chewable) 81 mg PO DAILY [facility] Last Admin: 04/13/18 09:39 Dose: 81 mg Collagenase (Santyl) 0 gm TOP BID [facility] Last Admin: 04/13/18 18:13 Dose: 1 applic Diltiazem HCl (Cardizem) 30 mg PO Q6 [facility] Last Admin: 04/13/18 18:12 Dose: 30 mg Enoxaparin Sodium (Lovenox) 40 mg SC DAILY [facility] Last Admin: 04/13/18 09:38 Dose: 40 mg Folic Acid (Folic Acid) 1 mg GT DAILY [facility] Last Admin: 04/13/18 09:39 Dose: 1 mg Furosemide (Lasix) 40 mg PEG DAILY [facility] Last Admin: 04/13/18 09:40 Dose: 40 mg Vancomycin/Sodium Chloride (Vancomycin 1 Gm/Ns 200 Ml) 1 gm in 200 mls @ 166.667 mls/hr IVPB STAT [facility] PRN Reason: Protocol Stop: 04/16/18 16:01 Azithromycin 500 mg/ Sodium (Chloride) 250 mls @ 250 mls/hr IVPB DAILY [facility] PRN Reason: Protocol Last Admin: 04/13/18 11:03 Dose: 250 mls/hr Sodium Chloride (Sodium Chloride 0.9%) 1,000 mls @ 20 mls/hr IV .Q24H [facility] Last Admin: 04/11/18 19:30 Dose: 20 mls/hr Cefepime HCl (Maxipime Iv 1 Gm Premix) 1 gm in 50 mls @ 100 mls/hr IVPB Q12H [facility] PRN Reason: Protocol Last Admin: 04/13/18 09:38 Dose: 100 mls/hr Magnesium Hydroxide (Milk Of Magnesia) 30 ml GT HS PRN PRN Reason: Constipation Multivitamins/Vitamin C (Multi-Delyn Liquid) 5 ml GT DAILY [facility] Last Admin: 04/13/18 09:39 Dose: 5 ml Saccharomyces Boulardii (Florastor) 250 mg GT DAILY [facility] Last Admin: 04/13/18 09:39 Dose: 250 mg Zinc Sulfate (Zinc Sulfate 220 Mg Cap) 220 mg GT DAILY [facility] Last Admin: 04/13/18 09:39 Dose: 220 mg - Labs Labs: 04/13/18 10:53 04/13/18 10:53 - Constitutional Appears: Well - Head Exam Head Exam: ATRAUMATIC, NORMAL INSPECTION, NORMOCEPHALIC - Eye Exam Eye Exam: EOMI, Normal appearance, PERRL Pupil Exam: NORMAL ACCOMODATION, PERRL - ENT Exam ENT Exam: Mucous Membranes Moist, Normal Exam - Neck Exam Neck Exam: Full ROM, Normal Inspection. absent: Lymphadenopathy - Respiratory Exam Respiratory Exam: Decreased Breath Sounds - Cardiovascular Exam Cardiovascular Exam: REGULAR RHYTHM, +S1, +S2 - GI/Abdominal Exam GI & Abdominal Exam: Soft, Diminished Bowel Sounds - Rectal Exam Rectal Exam: Deferred
[2018-04-13] MEDS: Sodium Chloride 0.9% 1,000 ML IV SCH (21:51)
[2018-04-14] MEDS: Sodium Chloride 0.9% 1,000 ML IV SCH (00:45)
[2018-04-14] MEDS: Albuterol-Ipratrop 3 mg / 0.5 (3 ml) UD INH SCH ×4 (01:40→19:55)
--- NOTE | 2018-04-14 05:51 | CP.PCM.PCO ---
Physician Communication Note - Physician Communication Note Physician Communication Note: As per nursing, patiet had beats of VTACH, vitals stable, asymptomatic
[2018-04-14 06:41] LABS: BASO % 0.9 % (0.0-2.0); EOS # 0.3 K/uL (0.0-0.7); HEMOGLOBIN 9.4 g/dL (12.0-18.0); LYMPH # 1.2 K/uL (1.0-4.3); LYMPH % 27.9 % (20.0-40.0); MEAN CELL VOLUME 85.6 fL (80.0-94.0); MEAN CORPUSCULAR HEMOGLOBIN 27.7 pg (27.0-31.0); MEAN CORPUSCULAR HGB CONC 32.3 g/dL (33.0-37.0); MONO # 0.5 K/uL (0.0-0.8); MONO % 12.3 % (0.0-10.0); NEUT # 2.3 K/uL (1.8-7.0); NEUT % 52.9 % (50.0-75.0); NRBC % 0.1 % (0.0-2.0); RBC 3.39 Mil/uL (4.40-5.90); WHITE BLOOD COUNT 4.3 K/uL (4.8-10.8)
[2018-04-14 07:16] LABS: BLOOD UREA NITROGEN 13 mg/dL (9-20); CALCIUM 8.7 mg/dl (8.6-10.4); GFR AFRICAN-AMERICAN > 60; GFR NON-AFRICAN AMERICAN > 60
[2018-04-14] MEDS: Enoxaparin 40 mg Syringe SC SCH (09:09)
[2018-04-14] MEDS: Saccharomyces Boulardi 250 mg Cap GT SCH (09:09)
[2018-04-14] MEDS: Multiple Vitamins Oral Solution GT SCH (09:10)
[2018-04-14] MEDS: Cefepime IV 1 gm in Dextrose 1 GM/50 ML BAG IVPB SCH ×2 (10:05→21:52)
--- NOTE | 2018-04-14 10:29 | CP.PCM.PN ---
Subjective - Date & Time of Evaluation Date of Evaluation: 04/14/18 Time of Evaluation: 10:25 - Subjective Subjective: patient is comfortable in bed. no arrhythmia Objective - Vital Signs/Intake and Output Vital Signs (last 24 hours): Temp Pulse Resp BP Pulse Ox 97.8 F 70 20 113/72 95 04/14/18 07:42 04/14/18 07:42 04/14/18 07:42 04/14/18 09:09 04/14/18 07:42 Intake and Output: 04/14/18 04/14/18 06:59 18:59 Intake Total 1160 Output Total 1250 Balance -90 - Medications Medications: Current Medications Acetaminophen (Tylenol 650mg/20.3ml Solution Ud) 650 mg GT Q4 PRN PRN Reason: Pain, moderate (4-7) Al Hydrox/Mg Hydrox/Simethicone (Maalox Plus 30 Ml) 30 ml GT Q4H PRN PRN Reason: Heartburn Albuterol/Ipratropium (Duoneb 3 Mg/0.5 Mg (3 Ml) Ud) 3 ml INH RQ6 [facility] Last Admin: 04/14/18 07:31 Dose: 3 ml Ascorbic Acid (Vitamin C 250 Mg Tab) 250 mg GT DAILY [facility] Last Admin: 04/14/18 09:09 Dose: 250 mg Aspirin (Aspirin Chewable) 81 mg PO DAILY [facility] Last Admin: 04/14/18 09:09 Dose: 81 mg Collagenase (Santyl) 0 gm TOP BID [facility] Last Admin: 04/13/18 18:13 Dose: 1 applic Diltiazem HCl (Cardizem) 30 mg PO Q6 [facility] Last Admin: 04/14/18 05:31 Dose: 30 mg Enoxaparin Sodium (Lovenox) 40 mg SC DAILY [facility] Last Admin: 04/14/18 09:09 Dose: 40 mg Folic Acid (Folic Acid) 1 mg GT DAILY [facility] Last Admin: 04/14/18 09:09 Dose: 1 mg Furosemide (Lasix) 40 mg PEG DAILY [facility] Last Admin: 04/14/18 09:09 Dose: 40 mg Vancomycin/Sodium Chloride (Vancomycin 1 Gm/Ns 200 Ml) 1 gm in 200 mls @ 166.667 mls/hr IVPB STAT [facility] PRN Reason: Protocol Stop: 04/16/18 16:01 Azithromycin 500 mg/ Sodium (Chloride) 250 mls @ 250 mls/hr IVPB DAILY [facility] PRN Reason: Protocol Last Admin: 04/13/18 11:03 Dose: 250 mls/hr Sodium Chloride (Sodium Chloride 0.9%) 1,000 mls @ 20 mls/hr IV .Q24H [facility] Last Admin: 04/14/18 00:45 Dose: 20 mls/hr Cefepime HCl (Maxipime Iv 1 Gm Premix) 1 gm in 50 mls @ 100 mls/hr IVPB Q12H [facility] PRN Reason: Protocol Last Admin: 04/14/18 10:05 Dose: 100 mls/hr Magnesium Hydroxide (Milk Of Magnesia) 30 ml GT HS PRN PRN Reason: Constipation Multivitamins/Vitamin C (Multi-Delyn Liquid) 5 ml GT DAILY [facility] Last Admin: 04/14/18 09:10 Dose: 5 ml Saccharomyces Boulardii (Florastor) 250 mg GT DAILY [facility] Last Admin: 04/14/18 09:09 Dose: 250 mg Zinc Sulfate (Zinc Sulfate 220 Mg Cap) 220 mg GT DAILY [facility] Last Admin: 04/13/18 09:39 Dose: 220 mg - Labs Labs: 04/14/18 06:36 04/14/18 06:36 - Constitutional Appears: Non-toxic - Head Exam Head Exam: NORMAL INSPECTION - Eye Exam Eye Exam: Normal appearance - ENT Exam ENT Exam: Mucous Membranes Moist - Neck Exam Neck Exam: Full ROM - Respiratory Exam Respiratory Exam: NORMAL BREATHING PATTERN - Cardiovascular Exam Cardiovascular Exam: REGULAR RHYTHM - Rectal Exam Rectal Exam: Deferred - Extremities Exam Extremities Exam: absent: Pedal Edema - Back Exam Back Exam: NORMAL INSPECTION - Psychiatric Exam Psychiatric exam: Flat Affect - Skin Skin Exam: Normal Color Assessment and Plan (1) COPD (chronic obstructive pulmonary disease) with emphysema Assessment & Plan: continue current therapy Status: Chronic (2) HTN (hypertension) Assessment & Plan: blood pressure control Status: Acute
[2018-04-14] MEDS: Azithromycin 500 MG in Sodium Chloride 0.9% 250 ML IVPB SCH (11:10)
[2018-04-14] MEDS: Collagenase 250 Units/gm Ointment(30 gm) TOP SCH ×2 (11:12→23:12)
--- NOTE | 2018-04-14 12:19 | CP.PCM.PN ---
Subjective - Date & Time of Evaluation Date of Evaluation: 04/14/18 Time of Evaluation: 12:18 - Subjective Subjective: CHIEF COMPLAINTS TODAY : EVENT NOTED. SP VT, VSS SEEN BY CARDIOLOGY afebrile, ASYMTOMATIC +ve tracheostomy +ve secretions thick ROS. on observation only HEENT : N. Resp : No cough, wheezing ,pleuritic CP ,or hemoptysis Cardio : No anginal CP, PND, orthopnea, palpitation GI : No abd.pain, n/v ,diarrhea or GI bleeding . [employer] : No headache, vertigo, focal deficit. Musculoskel : No joint swelling , Derm : No rash Psych : Normal affect. Ext : No swelling ,calf pain PE. Pt. is alert awake in no distress. V.S As noted in the chart Head ,ear nose,throat and eyes : Normal. +ve TRACHEOSTOMY Neck : Supple with normal carotids. Lungs: B/L RHONCHI. Heart : S1 & S2 normal with S4. No murmur. Abd : Soft non tender with normal bowel sounds. Neuro : Moves all ext. with no localized deficit. Ext : No edema with intact pulses.Non tender calves Derm : No rashes or decubitus ulcer. LABS/RADIOLOGY: REVIEWED BLOOD CULTURES NEGATIVE GROWTH X 48HRS SPUTUM--GRAM-NEGATIVE RODS. ASSESSMENT/PLAN : CONTINUE ANTIBIOTICS PATIENT ON MAXIPIME, ZITHROMAX, VANCOMYCIN. AWAIT CULTURES TO ADJUST ANTIBIOTICS. SUCTION WHEN NECESSARY aS PER PULMONARY. Objective - Vital Signs/Intake and Output Vital Signs (last 24 hours): Temp Pulse Resp BP Pulse Ox 97.8 F 70 20 113/72 95 04/14/18 07:42 04/14/18 07:42 04/14/18 07:42 04/14/18 09:09 04/14/18 07:42 Intake and Output: 04/14/18 04/14/18 06:59 18:59 Intake Total 1160 Output Total 1250 Balance -90 - Medications Medications: Current Medications Acetaminophen (Tylenol 650mg/20.3ml Solution Ud) 650 mg GT Q4 PRN PRN Reason: Pain, moderate (4-7) Al Hydrox/Mg Hydrox/Simethicone (Maalox Plus 30 Ml) 30 ml GT Q4H PRN PRN Reason: Heartburn Albuterol/Ipratropium (Duoneb 3 Mg/0.5 Mg (3 Ml) Ud) 3 ml INH RQ6 [facility] Last Admin: 04/14/18 07:31 Dose: 3 ml Ascorbic Acid (Vitamin C 250 Mg Tab) 250 mg GT DAILY [facility] Last Admin: 04/14/18 09:09 Dose: 250 mg Aspirin (Aspirin Chewable) 81 mg PO DAILY [facility] Last Admin: 04/14/18 09:09 Dose: 81 mg Collagenase (Santyl) 0 gm TOP BID [facility] Last Admin: 04/14/18 11:12 Dose: 1 applic Diltiazem HCl (Cardizem) 30 mg PO Q6 [facility] Last Admin: 04/14/18 05:31 Dose: 30 mg Enoxaparin Sodium (Lovenox) 40 mg SC DAILY [facility] Last Admin: 04/14/18 09:09 Dose: 40 mg Folic Acid (Folic Acid) 1 mg GT DAILY [facility] Last Admin: 04/14/18 09:09 Dose: 1 mg Furosemide (Lasix) 40 mg PEG DAILY [facility] Last Admin: 04/14/18 09:09 Dose: 40 mg Vancomycin/Sodium Chloride (Vancomycin 1 Gm/Ns 200 Ml) 1 gm in 200 mls @ 166.667 mls/hr IVPB STAT [facility] PRN Reason: Protocol Stop: 04/16/18 16:01 Azithromycin 500 mg/ Sodium (Chloride) 250 mls @ 250 mls/hr IVPB DAILY [facility] PRN Reason: Protocol Last Admin: 04/14/18 11:10 Dose: 250 mls/hr Sodium Chloride (Sodium Chloride 0.9%) 1,000 mls @ 20 mls/hr IV .Q24H [facility] Last Admin: 04/14/18 00:45 Dose: 20 mls/hr Cefepime HCl (Maxipime Iv 1 Gm Premix) 1 gm in 50 mls @ 100 mls/hr IVPB Q12H [facility] PRN Reason: Protocol Last Admin: 04/14/18 10:05 Dose: 100 mls/hr Magnesium Hydroxide (Milk Of Magnesia) 30 ml GT HS PRN PRN Reason: Constipation Multivitamins/Vitamin C (Multi-Delyn Liquid) 5 ml GT DAILY [facility] Last Admin: 04/14/18 09:10 Dose: 5 ml Saccharomyces Boulardii (Florastor) 250 mg GT DAILY [facility] Last Admin: 04/14/18 09:09 Dose: 250 mg Zinc Sulfate (Zinc Sulfate 220 Mg Cap) 220 mg GT DAILY [facility] Last Admin: 04/14/18 09:09 Dose: 220 mg - Labs Labs: 04/14/18 06:36 04/14/18 06:36 Assessment and Plan (1) Acute on chronic respiratory failure with hypoxia and hypercapnia Status: Acute (2) Pneumonia Status: Acute (3) COPD (chronic obstructive pulmonary disease) with emphysema Status: Chronic (4) Laryngeal cancer Status: Chronic (5) HTN (hypertension) Status: Acute
--- NOTE | 2018-04-14 15:13 | CP.PCM.PN ---
Subjective - Date & Time of Evaluation Date of Evaluation: 04/14/18 Time of Evaluation: 10:20 - Subjective Subjective: clinically same Objective - Vital Signs/Intake and Output Vital Signs (last 24 hours): Temp Pulse Resp BP Pulse Ox 97.8 F 84 20 113/72 95 04/14/18 07:42 04/14/18 08:00 04/14/18 07:42 04/14/18 09:09 04/14/18 07:42 Intake and Output: 04/14/18 04/14/18 06:59 18:59 Intake Total 1160 800 Output Total 1250 500 Balance -90 300 - Medications Medications: Current Medications Acetaminophen (Tylenol 650mg/20.3ml Solution Ud) 650 mg GT Q4 PRN PRN Reason: Pain, moderate (4-7) Al Hydrox/Mg Hydrox/Simethicone (Maalox Plus 30 Ml) 30 ml GT Q4H PRN PRN Reason: Heartburn Albuterol/Ipratropium (Duoneb 3 Mg/0.5 Mg (3 Ml) Ud) 3 ml INH RQ6 [facility] Last Admin: 04/14/18 13:21 Dose: 3 ml Ascorbic Acid (Vitamin C 250 Mg Tab) 250 mg GT DAILY [facility] Last Admin: 04/14/18 09:09 Dose: 250 mg Aspirin (Aspirin Chewable) 81 mg PO DAILY [facility] Last Admin: 04/14/18 09:09 Dose: 81 mg Collagenase (Santyl) 0 gm TOP BID [facility] Last Admin: 04/14/18 11:12 Dose: 1 applic Diltiazem HCl (Cardizem) 30 mg PO Q6 [facility] Last Admin: 04/14/18 13:09 Dose: 30 mg Enoxaparin Sodium (Lovenox) 40 mg SC DAILY [facility] Last Admin: 04/14/18 09:09 Dose: 40 mg Folic Acid (Folic Acid) 1 mg GT DAILY [facility] Last Admin: 04/14/18 09:09 Dose: 1 mg Furosemide (Lasix) 40 mg PEG DAILY [facility] Last Admin: 04/14/18 09:09 Dose: 40 mg Vancomycin/Sodium Chloride (Vancomycin 1 Gm/Ns 200 Ml) 1 gm in 200 mls @ 166.667 mls/hr IVPB STAT [facility]UANA PRN Reason: Protocol Stop: 04/16/18 16:01 Azithromycin 500 mg/ Sodium (Chloride) 250 mls @ 250 mls/hr IVPB DAILY [facility] PRN Reason: Protocol Last Admin: 04/14/18 11:10 Dose: 250 mls/hr Sodium Chloride (Sodium Chloride 0.9%) 1,000 mls @ 20 mls/hr IV .Q24H [facility] Last Admin: 04/14/18 00:45 Dose: 20 mls/hr Cefepime HCl (Maxipime Iv 1 Gm Premix) 1 gm in 50 mls @ 100 mls/hr IVPB Q12H [facility] PRN Reason: Protocol Last Admin: 04/14/18 10:05 Dose: 100 mls/hr Magnesium Hydroxide (Milk Of Magnesia) 30 ml GT HS PRN PRN Reason: Constipation Multivitamins/Vitamin C (Multi-Delyn Liquid) 5 ml GT DAILY [facility] Last Admin: 04/14/18 09:10 Dose: 5 ml Saccharomyces Boulardii (Florastor) 250 mg GT DAILY [facility] Last Admin: 04/14/18 09:09 Dose: 250 mg Zinc Sulfate (Zinc Sulfate 220 Mg Cap) 220 mg GT DAILY [facility] Last Admin: 04/14/18 09:09 Dose: 220 mg - Labs Labs: 04/14/18 06:36 04/14/18 06:36 - Constitutional Appears: Well - Head Exam Head Exam: ATRAUMATIC, NORMAL INSPECTION, NORMOCEPHALIC - Eye Exam Eye Exam: EOMI, Normal appearance, PERRL Pupil Exam: NORMAL ACCOMODATION, PERRL - ENT Exam ENT Exam: Mucous Membranes Moist, Normal Exam - Neck Exam Neck Exam: Full ROM, Normal Inspection. absent: Lymphadenopathy - Respiratory Exam Respiratory Exam: Decreased Breath Sounds - Cardiovascular Exam Cardiovascular Exam: REGULAR RHYTHM, +S1, +S2 - GI/Abdominal Exam GI & Abdominal Exam: Soft, Diminished Bowel Sounds - Rectal Exam Rectal Exam: Deferred
--- NOTE | 2018-04-14 16:17 | CP.PCM.PN ---
Subjective - Date & Time of Evaluation Date of Evaluation: 04/14/18 Time of Evaluation: 14:00 - Subjective Subjective: patient seen and examined Copious amount of secretions from tracheostomy Complaining of shortness of breath On trach collar Afebrile Continue antibiotics Pulmonary toilet and trach care Continue nebulizer treatment metabolic alkalosis noted Stop antacid Continue IV fluid Objective - Vital Signs/Intake and Output Vital Signs (last 24 hours): Temp Pulse Resp BP Pulse Ox 97.8 F 84 20 113/72 95 04/14/18 07:42 04/14/18 08:00 04/14/18 07:42 04/14/18 09:09 04/14/18 07:42 Intake and Output: 04/14/18 04/14/18 06:59 18:59 Intake Total 1160 800 Output Total 1250 500 Balance -90 300 - Medications Medications: Current Medications Acetaminophen (Tylenol 650mg/20.3ml Solution Ud) 650 mg GT Q4 PRN PRN Reason: Pain, moderate (4-7) Al Hydrox/Mg Hydrox/Simethicone (Maalox Plus 30 Ml) 30 ml GT Q4H PRN PRN Reason: Heartburn Albuterol/Ipratropium (Duoneb 3 Mg/0.5 Mg (3 Ml) Ud) 3 ml INH RQ6 [facility] Last Admin: 04/14/18 13:21 Dose: 3 ml Ascorbic Acid (Vitamin C 250 Mg Tab) 250 mg GT DAILY [facility] Last Admin: 04/14/18 09:09 Dose: 250 mg Aspirin (Aspirin Chewable) 81 mg PO DAILY [facility] Last Admin: 04/14/18 09:09 Dose: 81 mg Collagenase (Santyl) 0 gm TOP BID [facility] Last Admin: 04/14/18 11:12 Dose: 1 applic Diltiazem HCl (Cardizem) 30 mg PO Q6 [facility] Last Admin: 04/14/18 13:09 Dose: 30 mg Enoxaparin Sodium (Lovenox) 40 mg SC DAILY [facility] Last Admin: 04/14/18 09:09 Dose: 40 mg Folic Acid (Folic Acid) 1 mg GT DAILY [facility] Last Admin: 04/14/18 09:09 Dose: 1 mg Furosemide (Lasix) 40 mg PEG DAILY [facility] Last Admin: 04/14/18 09:09 Dose: 40 mg Vancomycin/Sodium Chloride (Vancomycin 1 Gm/Ns 200 Ml) 1 gm in 200 mls @ 166.667 mls/hr IVPB STAT JUANA PRN Reason: Protocol Stop: 04/16/18 16:01 Azithromycin 500 mg/ Sodium (Chloride) 250 mls @ 250 mls/hr IVPB DAILY [facility] PRN Reason: Protocol Last Admin: 04/14/18 11:10 Dose: 250 mls/hr Sodium Chloride (Sodium Chloride 0.9%) 1,000 mls @ 20 mls/hr IV .Q24H [facility] Last Admin: 04/14/18 00:45 Dose: 20 mls/hr Cefepime HCl (Maxipime Iv 1 Gm Premix) 1 gm in 50 mls @ 100 mls/hr IVPB Q12H [facility] PRN Reason: Protocol Last Admin: 04/14/18 10:05 Dose: 100 mls/hr Magnesium Hydroxide (Milk Of Magnesia) 30 ml GT HS PRN PRN Reason: Constipation Multivitamins/Vitamin C (Multi-Delyn Liquid) 5 ml GT DAILY [facility] Last Admin: 04/14/18 09:10 Dose: 5 ml Saccharomyces Boulardii (Florastor) 250 mg GT DAILY [facility] Last Admin: 04/14/18 09:09 Dose: 250 mg Zinc Sulfate (Zinc Sulfate 220 Mg Cap) 220 mg GT DAILY [facility] Last Admin: 04/14/18 09:09 Dose: 220 mg - Labs Labs: 04/14/18 06:36 04/14/18 06:36
[2018-04-14] MEDS: Acetaminophen 650mg/20.3ml solution UD GT PRN (22:46)
[2018-04-15] MEDS: Albuterol-Ipratrop 3 mg / 0.5 (3 ml) UD INH SCH ×4 (01:21→19:12)
[2018-04-15] MEDS: Acetaminophen 650mg/20.3ml solution UD GT PRN (06:09)
[2018-04-15] MEDS: Cefepime IV 1 gm in Dextrose 1 GM/50 ML BAG IVPB SCH (10:00)
[2018-04-15] MEDS: Saccharomyces Boulardi 250 mg Cap GT SCH (11:00)
[2018-04-15] MEDS: Enoxaparin 40 mg Syringe SC SCH (11:00)
[2018-04-15] MEDS: Azithromycin 500 MG in Sodium Chloride 0.9% 250 ML IVPB SCH (11:00)
--- NOTE | 2018-04-15 11:33 | CP.PCM.PN ---
Subjective - Date & Time of Evaluation Date of Evaluation: 04/15/18 Time of Evaluation: 11:20 - Subjective Subjective: Patient appears comfortable Objective - Vital Signs/Intake and Output Vital Signs (last 24 hours): Temp Pulse Resp BP Pulse Ox 97.7 F 85 20 136/76 99 04/15/18 07:00 04/15/18 07:00 04/15/18 07:00 04/15/18 11:21 04/15/18 07:00 Intake and Output: 04/15/18 04/15/18 06:59 18:59 Intake Total 1072 Output Total 850 Balance 222 - Medications Medications: Current Medications Acetaminophen (Tylenol 650mg/20.3ml Solution Ud) 650 mg GT Q4 PRN PRN Reason: Pain, moderate (4-7) Last Admin: 04/15/18 06:09 Dose: 650 mg Albuterol/Ipratropium (Duoneb 3 Mg/0.5 Mg (3 Ml) Ud) 3 ml INH RQ6 [facility] Last Admin: 04/15/18 07:05 Dose: 3 ml Ascorbic Acid (Vitamin C 250 Mg Tab) 250 mg GT DAILY [facility] Last Admin: 04/15/18 11:00 Dose: 250 mg Aspirin (Aspirin Chewable) 81 mg PO DAILY [facility] Last Admin: 04/15/18 11:00 Dose: 81 mg Collagenase (Santyl) 0 gm TOP BID [facility] Last Admin: 04/14/18 23:12 Dose: Not Given Diltiazem HCl (Cardizem) 30 mg PO Q6 [facility] Last Admin: 04/15/18 06:12 Dose: 30 mg Enoxaparin Sodium (Lovenox) 40 mg SC DAILY [facility] Last Admin: 04/15/18 11:00 Dose: 40 mg Folic Acid (Folic Acid) 1 mg GT DAILY [facility] Last Admin: 04/15/18 11:00 Dose: 1 mg Furosemide (Lasix) 40 mg PEG DAILY [facility] Last Admin: 04/15/18 11:21 Dose: 40 mg Vancomycin/Sodium Chloride (Vancomycin 1 Gm/Ns 200 Ml) 1 gm in 200 mls @ 166.667 mls/hr IVPB STAT JUANA PRN Reason: Protocol Stop: 04/16/18 16:01 Azithromycin 500 mg/ Sodium (Chloride) 250 mls @ 250 mls/hr IVPB DAILY [facility] PRN Reason: Protocol Last Admin: 04/15/18 11:00 Dose: 250 mls/hr Cefepime HCl (Maxipime Iv 1 Gm Premix) 1 gm in 50 mls @ 100 mls/hr IVPB Q12H [facility] PRN Reason: Protocol Last Admin: 04/14/18 21:52 Dose: 100 mls/hr Magnesium Hydroxide (Milk Of Magnesia) 30 ml GT HS PRN PRN Reason: Constipation Multivitamins/Vitamin C (Multi-Delyn Liquid) 5 ml GT DAILY [facility] Last Admin: 04/14/18 09:10 Dose: 5 ml Saccharomyces Boulardii (Florastor) 250 mg GT DAILY [facility] Last Admin: 04/15/18 11:00 Dose: 250 mg Zinc Sulfate (Zinc Sulfate 220 Mg Cap) 220 mg GT DAILY [facility] Last Admin: 04/15/18 11:00 Dose: 220 mg - Labs Labs: 04/14/18 06:36 04/14/18 06:36 - Constitutional Appears: Non-toxic - Head Exam Head Exam: NORMAL INSPECTION - Eye Exam Eye Exam: Normal appearance - ENT Exam ENT Exam: Mucous Membranes Moist - Neck Exam Neck Exam: Full ROM - Respiratory Exam Respiratory Exam: NORMAL BREATHING PATTERN - Cardiovascular Exam Cardiovascular Exam: REGULAR RHYTHM - GI/Abdominal Exam GI & Abdominal Exam: Normal Bowel Sounds - Rectal Exam Rectal Exam: Deferred - Extremities Exam Extremities Exam: absent: Pedal Edema - Back Exam Back Exam: NORMAL INSPECTION - Neurological Exam Neurological Exam: Alert - Psychiatric Exam Psychiatric exam: Normal Affect - Skin Skin Exam: Normal Color Assessment and Plan (1) COPD (chronic obstructive pulmonary disease) with emphysema Assessment & Plan: continue current therapy Status: Chronic (2) HTN (hypertension) Assessment & Plan: blood pressure is controlled Status: Acute
--- NOTE | 2018-04-15 11:34 | CP.PCM.PN ---
Subjective - Date & Time of Evaluation Date of Evaluation: 04/15/18 Time of Evaluation: 11:34 - Subjective Subjective: Pulmonary Folow up, Covering Dr. Jose The patient was Seen and examined by me at the bedside, Events reviewed Patient lying in bed comfortably and no apparent distress. Still with Copious amount of secretions from tracheostomy Patient afebrile, saturating well at 97% on Trach Colar 40%. Objective - Vital Signs/Intake and Output Vital Signs (last 24 hours): Temp Pulse Resp BP Pulse Ox 97.7 F 85 20 136/76 99 04/15/18 07:00 04/15/18 07:00 04/15/18 07:00 04/15/18 11:21 04/15/18 07:00 Intake and Output: 04/15/18 04/15/18 06:59 18:59 Intake Total 1072 Output Total 850 Balance 222 - Medications Medications: Current Medications Acetaminophen (Tylenol 650mg/20.3ml Solution Ud) 650 mg GT Q4 PRN PRN Reason: Pain, moderate (4-7) Last Admin: 04/15/18 06:09 Dose: 650 mg Albuterol/Ipratropium (Duoneb 3 Mg/0.5 Mg (3 Ml) Ud) 3 ml INH RQ6 [facility] Last Admin: 04/15/18 07:05 Dose: 3 ml Ascorbic Acid (Vitamin C 250 Mg Tab) 250 mg GT DAILY [facility] Last Admin: 04/15/18 11:00 Dose: 250 mg Aspirin (Aspirin Chewable) 81 mg PO DAILY [facility] Last Admin: 04/15/18 11:00 Dose: 81 mg Collagenase (Santyl) 0 gm TOP BID [facility] Last Admin: 04/14/18 23:12 Dose: Not Given Diltiazem HCl (Cardizem) 30 mg PO Q6 [facility] Last Admin: 04/15/18 06:12 Dose: 30 mg Enoxaparin Sodium (Lovenox) 40 mg SC DAILY [facility] Last Admin: 04/15/18 11:00 Dose: 40 mg Folic Acid (Folic Acid) 1 mg GT DAILY [facility] Last Admin: 04/15/18 11:00 Dose: 1 mg Furosemide (Lasix) 40 mg PEG DAILY [facility] Last Admin: 04/15/18 11:21 Dose: 40 mg Vancomycin/Sodium Chloride (Vancomycin 1 Gm/Ns 200 Ml) 1 gm in 200 mls @ 166.667 mls/hr IVPB STAT JUANA PRN Reason: Protocol Stop: 04/16/18 16:01 Azithromycin 500 mg/ Sodium (Chloride) 250 mls @ 250 mls/hr IVPB DAILY [facility] PRN Reason: Protocol Last Admin: 04/15/18 11:00 Dose: 250 mls/hr Cefepime HCl (Maxipime Iv 1 Gm Premix) 1 gm in 50 mls @ 100 mls/hr IVPB Q12H [facility] PRN Reason: Protocol Last Admin: 04/14/18 21:52 Dose: 100 mls/hr Magnesium Hydroxide (Milk Of Magnesia) 30 ml GT HS PRN PRN Reason: Constipation Multivitamins/Vitamin C (Multi-Delyn Liquid) 5 ml GT DAILY [facility] Last Admin: 04/14/18 09:10 Dose: 5 ml Saccharomyces Boulardii (Florastor) 250 mg GT DAILY [facility] Last Admin: 04/15/18 11:00 Dose: 250 mg Zinc Sulfate (Zinc Sulfate 220 Mg Cap) 220 mg GT DAILY [facility] Last Admin: 04/15/18 11:00 Dose: 220 mg - Labs Labs: 04/14/18 06:36 04/14/18 06:36 - Constitutional Appears: Well, Non-toxic - Head Exam Head Exam: ATRAUMATIC, NORMAL INSPECTION, NORMOCEPHALIC - Neck Exam Neck Exam: Full ROM. absent: Normal Inspection (tracheostomy) - Respiratory Exam Respiratory Exam: Decreased Breath Sounds, Rhonchi. absent: Clear to Ausculation Bilateral - Cardiovascular Exam Cardiovascular Exam: REGULAR RHYTHM, RRR, +S1, +S2. absent: JVD - GI/Abdominal Exam GI & Abdominal Exam: Soft, Normal Bowel Sounds. absent: Tenderness Assessment and Plan (1) Pneumonia Status: Acute (2) Respiratory distress Status: Acute (3) COPD (chronic obstructive pulmonary disease) with emphysema Status: Chronic (4) Acute hypercapnic respiratory failure Status: Acute - Assessment and Plan (Free Text) Assessment: 1. COPD Exacerbation - CXR 04/11: Previously noted consolidation changes seen in left upper lobe slightly improved. Patchy consolidation changes in right upper and right mid lung zone also improved. Small cavitation changes in right and left upper lobes. Underlying emphysema and fibrosis are present throughout. - Continue Duoneb - Continue Spiriva 2. Tracheobronchitis - Awaiting Sputum Cultures - Lactate 03/15: 2.4 - WBC 04/11: 9.0, awaiting repeat CBC - Continue Vancomycin - Continue Cefepime
[2018-04-15] MEDS: Multiple Vitamins Oral Solution GT SCH (15:39)
[2018-04-15] MEDS: Collagenase 250 Units/gm Ointment(30 gm) TOP SCH ×2 (15:44→17:39)
--- NOTE | 2018-04-15 16:06 | CP.PCM.PN ---
Subjective - Date & Time of Evaluation Date of Evaluation: 04/15/18 Time of Evaluation: 10:20 - Subjective Subjective: clinically same Objective - Vital Signs/Intake and Output Vital Signs (last 24 hours): Temp Pulse Resp BP Pulse Ox 97.8 F 89 20 114/79 100 04/15/18 15:58 04/15/18 15:58 04/15/18 15:58 04/15/18 15:58 04/15/18 15:58 Intake and Output: 04/15/18 04/15/18 06:59 18:59 Intake Total 1072 Output Total 850 Balance 222 - Medications Medications: Current Medications Acetaminophen (Tylenol 650mg/20.3ml Solution Ud) 650 mg GT Q4 PRN PRN Reason: Pain, moderate (4-7) Last Admin: 04/15/18 06:09 Dose: 650 mg Albuterol/Ipratropium (Duoneb 3 Mg/0.5 Mg (3 Ml) Ud) 3 ml INH RQ6 [facility] Last Admin: 04/15/18 13:16 Dose: 3 ml Ascorbic Acid (Vitamin C 250 Mg Tab) 250 mg GT DAILY [facility] Last Admin: 04/15/18 11:00 Dose: 250 mg Aspirin (Aspirin Chewable) 81 mg PO DAILY [facility] Last Admin: 04/15/18 11:00 Dose: 81 mg Collagenase (Santyl) 0 gm TOP BID [facility] Last Admin: 04/15/18 15:44 Dose: 1 applic Diltiazem HCl (Cardizem) 30 mg PO Q6 [facility] Last Admin: 04/15/18 13:33 Dose: 30 mg Enoxaparin Sodium (Lovenox) 40 mg SC DAILY [facility] Last Admin: 04/15/18 11:00 Dose: 40 mg Folic Acid (Folic Acid) 1 mg GT DAILY [facility] Last Admin: 04/15/18 11:00 Dose: 1 mg Furosemide (Lasix) 40 mg PEG DAILY [facility] Last Admin: 04/15/18 11:21 Dose: 40 mg Vancomycin/Sodium Chloride (Vancomycin 1 Gm/Ns 200 Ml) 1 gm in 200 mls @ 166.667 mls/hr IVPB STAT JUANA PRN Reason: Protocol Stop: 04/16/18 16:01 Azithromycin 500 mg/ Sodium (Chloride) 250 mls @ 250 mls/hr IVPB DAILY [facility] PRN Reason: Protocol Last Admin: 04/15/18 11:00 Dose: 250 mls/hr Colistimethate Sodium 100 mg/ (Sodium Chloride) 100 mls @ 200 mls/hr IV Q12H [facility] PRN Reason: Protocol Magnesium Hydroxide (Milk Of Magnesia) 30 ml GT HS PRN PRN Reason: Constipation Multivitamins/Vitamin C (Multi-Delyn Liquid) 5 ml GT DAILY [facility] Last Admin: 04/15/18 15:39 Dose: 5 ml Saccharomyces Boulardii (Florastor) 250 mg GT DAILY [facility] Last Admin: 04/15/18 11:00 Dose: 250 mg Zinc Sulfate (Zinc Sulfate 220 Mg Cap) 220 mg GT DAILY [facility] Last Admin: 04/15/18 11:00 Dose: 220 mg - Labs Labs: 04/14/18 06:36 04/14/18 06:36 - Constitutional Appears: Well - Head Exam Head Exam: ATRAUMATIC, NORMAL INSPECTION, NORMOCEPHALIC - Eye Exam Eye Exam: EOMI, Normal appearance, PERRL Pupil Exam: NORMAL ACCOMODATION, PERRL - ENT Exam ENT Exam: Mucous Membranes Moist, Normal Exam - Neck Exam Neck Exam: Full ROM, Normal Inspection. absent: Lymphadenopathy - Respiratory Exam Respiratory Exam: Decreased Breath Sounds - Cardiovascular Exam Cardiovascular Exam: REGULAR RHYTHM, +S1, +S2 - GI/Abdominal Exam GI & Abdominal Exam: Soft, Diminished Bowel Sounds - Rectal Exam Rectal Exam: Deferred Assessment and Plan - Assessment and Plan (Free Text) Plan: CHASTITY consult IV antibiotic Septic workup Wound C/S to be discussed with Dr. HAYWOOD Pulmonary consult As ordered
--- NOTE | 2018-04-15 17:20 | CP.PCM.PN ---
Subjective - Date & Time of Evaluation Date of Evaluation: 04/15/18 Time of Evaluation: 17:20 - Subjective Subjective: CHIEF COMPLAINTS TODAY : AFEBRILE +VE TRACH +ve secretions thick SPUTUM +VE ACINITIBACTER-BAUMANNI -MDR. S- COLISTIN/TYGACIL ROS. on observation only HEENT : N. Resp : No cough, wheezing ,pleuritic CP ,or hemoptysis Cardio : No anginal CP, PND, orthopnea, palpitation GI : No abd.pain, n/v ,diarrhea or GI bleeding . 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 Musculoskel : No joint swelling , Derm : No rash Psych : Normal affect. Ext : No swelling ,calf pain PE. Pt. is alert awake in no distress. V.S As noted in the chart Head ,ear nose,throat and eyes : Normal. +ve TRACHEOSTOMY Neck : Supple with normal carotids. Lungs: B/L RHONCHI. Heart : S1 & S2 normal with S4. No murmur. Abd : Soft non tender with normal bowel sounds. Neuro : Moves all ext. with no localized deficit. Ext : No edema with intact pulses.Non tender calves Derm : No rashes or decubitus ulcer. LABS/RADIOLOGY: REVIEWED BLOOD CULTURES NEGATIVE GROWTH X 48HRS SPUTUM--+VE ACINITIBACTER-BAUMANNI -MDR. S- COLISTIN/TYGACIL ASSESSMENT/PLAN : STRICT CONTACT PRECAUTIONS DC MAXIPIME, ZITHROMAX, VANCOMYCIN. START IV COLISTIN 100MG IV Q12 [facility] 04/14/18/ START IV TYGACIL 100MG IV LD --F/U 04/14/18 TYGACIL 50 MG IV [id number] TO AVOID RESISTANCE . PT HAS B/L CAVITARY PNEUMONIA. F/U CT CHEST HRCT CHEST SUCTION WHEN NECESSARY aS PER PULMONARY. Objective - Vital Signs/Intake and Output Vital Signs (last 24 hours): Temp Pulse Resp BP Pulse Ox 97.8 F 89 20 114/79 100 04/15/18 15:58 04/15/18 16:30 04/15/18 15:58 04/15/18 15:58 04/15/18 15:58 Intake and Output: 04/15/18 04/15/18 06:59 18:59 Intake Total 1072 Output Total 850 Balance 222 - Medications Medications: Current Medications Acetaminophen (Tylenol 650mg/20.3ml Solution Ud) 650 mg GT Q4 PRN PRN Reason: Pain, moderate (4-7) Last Admin: 04/15/18 06:09 Dose: 650 mg Albuterol/Ipratropium (Duoneb 3 Mg/0.5 Mg (3 Ml) Ud) 3 ml INH RQ6 [facility] Last Admin: 04/15/18 13:16 Dose: 3 ml Ascorbic Acid (Vitamin C 250 Mg Tab) 250 mg GT DAILY [facility] Last Admin: 04/15/18 11:00 Dose: 250 mg Aspirin (Aspirin Chewable) 81 mg PO DAILY [facility] Last Admin: 04/15/18 11:00 Dose: 81 mg Collagenase (Santyl) 0 gm TOP BID [facility] Last Admin: 04/15/18 15:44 Dose: 1 applic Diltiazem HCl (Cardizem) 30 mg PO Q6 [facility] Last Admin: 04/15/18 13:33 Dose: 30 mg Enoxaparin Sodium (Lovenox) 40 mg SC DAILY [facility] Last Admin: 04/15/18 11:00 Dose: 40 mg Folic Acid (Folic Acid) 1 mg GT DAILY [facility] Last Admin: 04/15/18 11:00 Dose: 1 mg Furosemide (Lasix) 40 mg PEG DAILY [facility] Last Admin: 04/15/18 11:21 Dose: 40 mg Colistimethate Sodium 100 mg/ (Sodium Chloride) 100 mls @ 200 mls/hr IV Q12H [facility] PRN Reason: Protocol Tigecycline 100 mg/ Sodium (Chloride) 100 mls @ 100 mls/hr IVPB ONCE ONE PRN Reason: Protocol Stop: 04/15/18 18:15 Magnesium Hydroxide (Milk Of Magnesia) 30 ml GT HS PRN PRN Reason: Constipation Multivitamins/Vitamin C (Multi-Delyn Liquid) 5 ml GT DAILY [facility] Last Admin: 04/15/18 15:39 Dose: 5 ml Saccharomyces Boulardii (Florastor) 250 mg GT DAILY [facility] Last Admin: 04/15/18 11:00 Dose: 250 mg Zinc Sulfate (Zinc Sulfate 220 Mg Cap) 220 mg GT DAILY [facility] Last Admin: 04/15/18 11:00 Dose: 220 mg - Labs Labs: 04/14/18 06:36 04/14/18 06:36 Assessment and Plan (1) Acute on chronic respiratory failure with hypoxia and hypercapnia Status: Acute (2) Pneumonia Status: Acute (3) COPD (chronic obstructive pulmonary disease) with emphysema Status: Chronic (4) Laryngeal cancer Status: Chronic (5) HTN (hypertension) Status: Acute
[2018-04-16] MEDS: Albuterol-Ipratrop 3 mg / 0.5 (3 ml) UD INH SCH ×4 (01:10→19:42)
[2018-04-16] MEDS: Enoxaparin 40 mg Syringe SC SCH (10:05)
[2018-04-16] MEDS: Saccharomyces Boulardi 250 mg Cap GT SCH (10:06)
[2018-04-16] MEDS: Multiple Vitamins Oral Solution GT SCH (10:06)
[2018-04-16] MEDS: Collagenase 250 Units/gm Ointment(30 gm) TOP SCH ×2 (10:15→18:47)
--- NOTE | 2018-04-16 12:44 | RAD ---
HISTORY: tracheobronchitis/ dyspnea COMPARISON: Comparison made with prior chest radiograph 04/11/2018 FINDINGS: In situ tracheostomy tube in good position. LUNGS: Hyperinflation consistent with underlying COPD or emphysema. . Previously noted patchy consolidation changes seen in the left upper lobe appears have improved very slightly. Apparent scarring changes both lung apices and upper lobes. PLEURA: No significant pleural effusion identified, no pneumothorax apparent. CARDIOVASCULAR: Normal. OSSEOUS STRUCTURES: No significant abnormalities. VISUALIZED UPPER ABDOMEN: Normal. OTHER FINDINGS: None. IMPRESSION: In situ tracheostomy tube Hyperinflation consistent with underlying COPD or emphysema. . Previously noted patchy consolidation changes seen in the left upper lobe appears have improved very slightly. Apparent scarring changes both lung apices and upper lobes.
--- NOTE | 2018-04-16 16:33 | CP.PCM.PN ---
Subjective - Date & Time of Evaluation Date of Evaluation: 04/16/18 Time of Evaluation: 10:35 - Subjective Subjective: Patient seen and examined at bedside today. Patient resting comfortably in bed watching TV in no acute distress. Patient has been spitting up copious amounts of secretions. Patient denies shortness of breath, chest pain, nausea, vomiting, fever or chills. Positive for cough. Patient continues to be afebrile. Assessment/Plan: 1. Tacheobronchitis - Trach Sputum Cx from 04/11 Positive for Acinetobacter Baumanni - ID started patient on Tygacil and Colistimethate - WBC 04/14: 4.3 - Patient on contact precautions - Blood Cx negative - Continue tracheostomy suctioning 2. COPD Exacerbation - 04/14 CMP: Carbon Dioxide 48 - Continue Duoneb - Repeat CXR Objective - Vital Signs/Intake and Output Vital Signs (last 24 hours): Temp Pulse Resp BP Pulse Ox 98.1 F 81 20 124/68 99 04/16/18 15:00 04/16/18 15:00 04/16/18 15:00 04/16/18 15:00 04/16/18 15:00 Intake and Output: 04/16/18 04/16/18 06:59 18:59 Intake Total 560 520 Output Total 800 1100 Balance -240 -580 - Medications Medications: Current Medications Acetaminophen (Tylenol 650mg/20.3ml Solution Ud) 650 mg GT Q4 PRN PRN Reason: Pain, moderate (4-7) Last Admin: 04/15/18 06:09 Dose: 650 mg Albuterol/Ipratropium (Duoneb 3 Mg/0.5 Mg (3 Ml) Ud) 3 ml INH RQ6 [facility] Last Admin: 04/16/18 13:21 Dose: 3 ml Ascorbic Acid (Vitamin C 250 Mg Tab) 250 mg GT DAILY [facility] Last Admin: 04/16/18 10:06 Dose: 250 mg Aspirin (Aspirin Chewable) 81 mg PO DAILY [facility] Last Admin: 04/16/18 10:06 Dose: 81 mg Collagenase (Santyl) 0 gm TOP BID [facility] Last Admin: 04/16/18 10:15 Dose: 1 applic Diltiazem HCl (Cardizem) 30 mg PO Q6 [facility] Last Admin: 04/16/18 11:31 Dose: 30 mg Enoxaparin Sodium (Lovenox) 40 mg SC DAILY [facility] Last Admin: 04/16/18 10:05 Dose: 40 mg Folic Acid (Folic Acid) 1 mg GT DAILY [facility] Last Admin: 04/16/18 10:07 Dose: 1 mg Furosemide (Lasix) 40 mg PEG DAILY [facility] Last Admin: 04/16/18 10:06 Dose: 40 mg Colistimethate Sodium 100 mg/ (Sodium Chloride) 100 mls @ 200 mls/hr IV Q12H [facility] PRN Reason: Protocol Last Admin: 04/16/18 05:49 Dose: 200 mls/hr Tigecycline 50 mg/ Sodium (Chloride) 100 mls @ 100 mls/hr IVPB Q12H [facility] PRN Reason: Protocol Last Admin: 04/16/18 14:08 Dose: 100 mls/hr Magnesium Hydroxide (Milk Of Magnesia) 30 ml GT HS PRN PRN Reason: Constipation Multivitamins/Vitamin C (Multi-Delyn Liquid) 5 ml GT DAILY [facility] Last Admin: 04/16/18 10:06 Dose: 5 ml Saccharomyces Boulardii (Florastor) 250 mg GT DAILY [facility] Last Admin: 04/16/18 10:06 Dose: 250 mg Zinc Sulfate (Zinc Sulfate 220 Mg Cap) 220 mg GT DAILY [facility] Last Admin: 04/16/18 10:06 Dose: 220 mg - Labs Labs: 04/14/18 06:36 04/14/18 06:36
[2018-04-16] MEDS: Acetaminophen 650mg/20.3ml solution UD GT PRN (17:31)
[2018-04-16] MEDS ORDERED: Vitamins A & D Oint UD Foilpak TOP PRN (18:35)
--- NOTE | 2018-04-16 19:27 | CP.PCM.PN ---
Subjective - Date & Time of Evaluation Date of Evaluation: 04/16/18 Time of Evaluation: 11:00 - Subjective Subjective: clinically same Objective - Vital Signs/Intake and Output Vital Signs (last 24 hours): Temp Pulse Resp BP Pulse Ox 98.1 F 81 20 124/68 99 04/16/18 15:00 04/16/18 15:00 04/16/18 15:00 04/16/18 15:00 04/16/18 15:00 Intake and Output: 04/16/18 04/17/18 18:59 06:59 Intake Total 520 Output Total 1100 Balance -580 - Medications Medications: Current Medications Acetaminophen (Tylenol 650mg/20.3ml Solution Ud) 650 mg GT Q4 PRN PRN Reason: Pain, moderate (4-7) Last Admin: 04/16/18 17:31 Dose: 650 mg Albuterol/Ipratropium (Duoneb 3 Mg/0.5 Mg (3 Ml) Ud) 3 ml INH RQ6 [facility] Last Admin: 04/16/18 13:21 Dose: 3 ml Ascorbic Acid (Vitamin C 250 Mg Tab) 250 mg GT DAILY [facility] Last Admin: 04/16/18 10:06 Dose: 250 mg Aspirin (Aspirin Chewable) 81 mg PO DAILY [facility] Last Admin: 04/16/18 10:06 Dose: 81 mg Collagenase (Santyl) 0 gm TOP BID [facility] Last Admin: 04/16/18 18:47 Dose: Not Given Diltiazem HCl (Cardizem) 30 mg PO Q6 [facility] Last Admin: 04/16/18 17:37 Dose: 30 mg Enoxaparin Sodium (Lovenox) 40 mg SC DAILY [facility] Last Admin: 04/16/18 10:05 Dose: 40 mg Folic Acid (Folic Acid) 1 mg GT DAILY [facility] Last Admin: 04/16/18 10:07 Dose: 1 mg Furosemide (Lasix) 40 mg PEG DAILY [facility] Last Admin: 04/16/18 10:06 Dose: 40 mg Colistimethate Sodium 100 mg/ (Sodium Chloride) 100 mls @ 200 mls/hr IV Q12H [facility] PRN Reason: Protocol Last Admin: 04/16/18 17:31 Dose: 200 mls/hr Tigecycline 50 mg/ Sodium (Chloride) 100 mls @ 100 mls/hr IVPB Q12H [facility] PRN Reason: Protocol Last Admin: 04/16/18 14:08 Dose: 100 mls/hr Magnesium Hydroxide (Milk Of Magnesia) 30 ml GT HS PRN PRN Reason: Constipation Multivitamins/Vitamin C (Multi-Delyn Liquid) 5 ml GT DAILY [facility] Last Admin: 04/16/18 10:06 Dose: 5 ml Saccharomyces Boulardii (Florastor) 250 mg GT DAILY [facility] Last Admin: 04/16/18 10:06 Dose: 250 mg Vitamin A (Vitamin A & D Oint Ud Foilpak) 0.5 ea TOP BID PRN PRN Reason: Dry skin Zinc Sulfate (Zinc Sulfate 220 Mg Cap) 220 mg GT DAILY [facility] Last Admin: 04/16/18 10:06 Dose: 220 mg - Labs Labs: 04/14/18 06:36 04/14/18 06:36 - Constitutional Appears: Well - Head Exam Head Exam: ATRAUMATIC, NORMAL INSPECTION, NORMOCEPHALIC - Eye Exam Eye Exam: EOMI, Normal appearance, PERRL Pupil Exam: NORMAL ACCOMODATION, PERRL - ENT Exam ENT Exam: Mucous Membranes Moist, Normal Exam - Neck Exam Neck Exam: Full ROM, Normal Inspection. absent: Lymphadenopathy - Respiratory Exam Respiratory Exam: Decreased Breath Sounds - Cardiovascular Exam Cardiovascular Exam: REGULAR RHYTHM, +S1, +S2 - GI/Abdominal Exam GI & Abdominal Exam: Soft, Diminished Bowel Sounds - Rectal Exam Rectal Exam: Deferred Assessment and Plan - Assessment and Plan (Free Text) Plan: SPUTUM +VE ACINITIBACTER-BAUMANNI -MDR. S- COLISTIN/TYGACIL Patient is followed by ID Patient is followed by pulmonary Continue IV antibiotic Septic workup Continue colistimethate Continue DuoNeb Continue tigecycline Poor prognosis
--- NOTE | 2018-04-16 22:53 | CP.PCM.PN ---
Subjective - Date & Time of Evaluation Date of Evaluation: 04/16/18 Time of Evaluation: 22:53 - Subjective Subjective: CHIEF COMPLAINTS TODAY : AFEBRILE +VE TRACH +ve secretions thick/AND COPIOUS SPUTUM +VE ACINITIBACTER-BAUMANNI -MDR. S- COLISTIN/TYGACIL ROS. on observation only HEENT : N. Resp : No cough, wheezing ,pleuritic CP ,or hemoptysis Cardio : No anginal CP, PND, orthopnea, palpitation GI : No abd.pain, n/v ,diarrhea or GI bleeding . 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 Musculoskel : No joint swelling , Derm : No rash Psych : Normal affect. Ext : No swelling ,calf pain PE. Pt. is alert awake in no distress. V.S As noted in the chart Head ,ear nose,throat and eyes : Normal. +ve TRACHEOSTOMY Neck : Supple with normal carotids. Lungs: B/L RHONCHI. Heart : S1 & S2 normal with S4. No murmur. Abd : Soft non tender with normal bowel sounds. Neuro : Moves all ext. with no localized deficit. Ext : No edema with intact pulses.Non tender calves Derm : No rashes or decubitus ulcer. LABS/RADIOLOGY: REVIEWED BLOOD CULTURES NEGATIVE GROWTH X 48HRS SPUTUM--+VE ACINITIBACTER-BAUMANNI -MDR. S- COLISTIN/TYGACIL ASSESSMENT/PLAN : STRICT CONTACT PRECAUTIONS DC MAXIPIME, ZITHROMAX, VANCOMYCIN. CONTINUE IV COLISTIN 100MG IV Q12 [facility] 04/14/18/ START IV TYGACIL 100MG IV LD --F/U 04/14/18 CONTINUE TYGACIL 50 MG IV P81RCUE TO AVOID RESISTANCE . PT HAS B/L CAVITARY PNEUMONIA. F/U CT CHEST HRCT CHEST SUCTION WHEN NECESSARY aS PER PULMONARY. Objective - Vital Signs/Intake and Output Vital Signs (last 24 hours): Temp Pulse Resp BP Pulse Ox 98.1 F 81 20 124/68 99 04/16/18 15:00 04/16/18 15:00 04/16/18 15:00 04/16/18 15:00 04/16/18 15:00 Intake and Output: 04/16/18 04/17/18 18:59 06:59 Intake Total 1090 Output Total 1100 Balance -10 - Medications Medications: Current Medications Acetaminophen (Tylenol 650mg/20.3ml Solution Ud) 650 mg GT Q4 PRN PRN Reason: Pain, moderate (4-7) Last Admin: 04/16/18 17:31 Dose: 650 mg Albuterol/Ipratropium (Duoneb 3 Mg/0.5 Mg (3 Ml) Ud) 3 ml INH RQ6 [facility] Last Admin: 04/16/18 19:42 Dose: 3 ml Ascorbic Acid (Vitamin C 250 Mg Tab) 250 mg GT DAILY [facility] Last Admin: 04/16/18 10:06 Dose: 250 mg Aspirin (Aspirin Chewable) 81 mg PO DAILY [facility] Last Admin: 04/16/18 10:06 Dose: 81 mg Collagenase (Santyl) 0 gm TOP BID [facility] Last Admin: 04/16/18 18:47 Dose: Not Given Diltiazem HCl (Cardizem) 30 mg PO Q6 [facility] Last Admin: 04/16/18 17:37 Dose: 30 mg Enoxaparin Sodium (Lovenox) 40 mg SC DAILY [facility] Last Admin: 04/16/18 10:05 Dose: 40 mg Folic Acid (Folic Acid) 1 mg GT DAILY [facility] Last Admin: 04/16/18 10:07 Dose: 1 mg Furosemide (Lasix) 40 mg PEG DAILY [facility] Last Admin: 04/16/18 10:06 Dose: 40 mg Colistimethate Sodium 100 mg/ (Sodium Chloride) 100 mls @ 200 mls/hr IV Q12H [facility] PRN Reason: Protocol Last Admin: 04/16/18 17:31 Dose: 200 mls/hr Tigecycline 50 mg/ Sodium (Chloride) 100 mls @ 100 mls/hr IVPB Q12H [facility] PRN Reason: Protocol Last Admin: 04/16/18 14:08 Dose: 100 mls/hr Magnesium Hydroxide (Milk Of Magnesia) 30 ml GT HS PRN PRN Reason: Constipation Multivitamins/Vitamin C (Multi-Delyn Liquid) 5 ml GT DAILY [facility] Last Admin: 04/16/18 10:06 Dose: 5 ml Saccharomyces Boulardii (Florastor) 250 mg GT DAILY [facility] Last Admin: 04/16/18 10:06 Dose: 250 mg Vitamin A (Vitamin A & D Oint Ud Foilpak) 0.5 ea TOP BID PRN PRN Reason: Dry skin Last Admin: 04/16/18 20:49 Dose: 0.5 ea Zinc Sulfate (Zinc Sulfate 220 Mg Cap) 220 mg GT DAILY [facility] Last Admin: 04/16/18 10:06 Dose: 220 mg - Labs Labs: 04/14/18 06:36 04/14/18 06:36 Assessment and Plan (1) Acute on chronic respiratory failure with hypoxia and hypercapnia Status: Acute (2) Pneumonia Status: Acute (3) COPD (chronic obstructive pulmonary disease) with emphysema Status: Chronic (4) Laryngeal cancer Status: Chronic (5) HTN (hypertension) Status: Acute
[2018-04-17] MEDS: Albuterol-Ipratrop 3 mg / 0.5 (3 ml) UD INH SCH ×4 (02:20→19:48)
[2018-04-17 07:29] LABS: BASO % 0.8 % (0.0-2.0); EOS # 0.3 K/uL (0.0-0.7); HEMOGLOBIN 8.9 g/dL (12.0-18.0); LYMPH # 1.2 K/uL (1.0-4.3); LYMPH % 22.4 % (20.0-40.0); MEAN CELL VOLUME 86.1 fL (80.0-94.0); MEAN CORPUSCULAR HGB CONC 32.5 g/dL (33.0-37.0); MEAN PLATELET VOLUME 6.6 fL (7.2-11.7); MONO # 0.4 K/uL (0.0-0.8); MONO % 8.4 % (0.0-10.0); NEUT # 3.3 K/uL (1.8-7.0); NEUT % 62.4 % (50.0-75.0); RBC 3.18 Mil/uL (4.40-5.90); RED CELL DISTRIBUTION WIDTH 16.8 % (11.5-14.5); WHITE BLOOD COUNT 5.2 K/uL (4.8-10.8)
[2018-04-17 08:10] LABS: ALB/GLOB RATIO 0.7 (1.0-2.1); ALBUMIN 2.9 g/dL (3.5-5.0); ALT/SGPT 14 U/L (21-72); AST/SGOT 40 U/L (17-59); BILIRUBIN,DIRECT 0.3 mg/dL (0.0-0.4); BLOOD UREA NITROGEN 27 mg/dL (9-20); CALCIUM 8.2 mg/dl (8.6-10.4); GFR AFRICAN-AMERICAN > 60; GFR NON-AFRICAN AMERICAN > 60
[2018-04-17] MEDS: Saccharomyces Boulardi 250 mg Cap GT SCH (10:02)
[2018-04-17] MEDS: Multiple Vitamins Oral Solution GT SCH (10:03)
[2018-04-17] MEDS: Enoxaparin 40 mg Syringe SC SCH (10:03)
[2018-04-17] MEDS: Collagenase 250 Units/gm Ointment(30 gm) TOP SCH ×2 (10:05→17:55)
--- NOTE | 2018-04-17 16:13 | CP.PCM.PN ---
Subjective - Date & Time of Evaluation Date of Evaluation: 04/17/18 Time of Evaluation: 16:08 - Subjective Subjective: DISCUSSED IV ABX REGIMEN FOR D/C IN PREPARATION FOR D/C [facility] TOMORROW BACK TO [facility]. PER DR. HA, CONTINUE COLY-MYCIN 100 MG IV Q12 HOURS AND UNASYN 1 GM IV Q8 HOURS BOTH X3 WEEKS (START 04/18/18 AND LAST DOSE TO BE GIVEN ON 05/09/18) . PER DR. HA'S RECOMMENDATIONS, PT TO HAVE WEEKLY LABS: CBC, BMP, LFTS. HE IS ALSO TO HAVE A REPEAT CHEST CT DONE IN 3 WEEKS AFTER THE IV ABX REGIMEN IS COMPLETED. AFTER THE CHEST CT IS RESULTED, ATTENDING TO FOLLOW UP WITH RESULTS AND RE-EVAL FOR FURTHER ANTIBIOTIC THERAPY. PT NEEDS PICC LINE INSERTION TOMORROW MORNING AND CAN BE D/C AFTERWARDS. I DISCUSSED WITH DR. CESAR AND HE IS IN AGREEMENT. I DISCUSSED THIS WITH THE PT'S POA AND NEPHEW, RADHA ARTEAGA, WHO IS IN AGREEMENT WITH THE PICC INSERTION AND PLAN FOR D/C. HE WILL START LOOKING INTO [employer], [place] IN [place] WITH [facility] [employer]. PRIMARY RN JENNIFER WITNESSED TELEPHONE CONSENT FOR PICC LINE. RADHA TO COME IN TOMORROW MORNING AND WILL SIGN THE CONSENT IN PERSON WITH ME. WE WILL DECIDE ON A TIME FOR D/C TOMORROW MORNING. ALL QUESTIONS AND CONCERNS ANSWERED. NO FURTHER ORDERS AT THIS TIME. Objective - Vital Signs/Intake and Output Vital Signs (last 24 hours): Temp Pulse Resp BP Pulse Ox 97.4 F L 85 20 124/86 96 04/17/18 15:00 04/17/18 15:00 04/17/18 15:00 04/17/18 15:00 04/17/18 15:00 Intake and Output: 04/17/18 04/17/18 06:59 18:59 Intake Total 1218 480 Output Total 1250 1200 Balance -32 -720 - Medications Medications: Current Medications Acetaminophen (Tylenol 650mg/20.3ml Solution Ud) 650 mg GT Q4 PRN PRN Reason: Pain, moderate (4-7) Last Admin: 04/16/18 17:31 Dose: 650 mg Albuterol/Ipratropium (Duoneb 3 Mg/0.5 Mg (3 Ml) Ud) 3 ml INH RQ6 [facility] Last Admin: 04/17/18 13:28 Dose: 3 ml Ascorbic Acid (Vitamin C 250 Mg Tab) 250 mg GT DAILY [facility] Last Admin: 04/17/18 10:02 Dose: 250 mg Aspirin (Aspirin Chewable) 81 mg PO DAILY [facility] Last Admin: 04/17/18 10:02 Dose: 81 mg Collagenase (Santyl) 0 gm TOP BID [facility] Last Admin: 04/17/18 10:05 Dose: 1 applic Diltiazem HCl (Cardizem) 30 mg PO Q6 [facility] Last Admin: 04/17/18 14:03 Dose: 30 mg Enoxaparin Sodium (Lovenox) 40 mg SC DAILY [facility] Last Admin: 04/17/18 10:03 Dose: 40 mg Folic Acid (Folic Acid) 1 mg GT DAILY [facility] Last Admin: 04/17/18 10:02 Dose: 1 mg Colistimethate Sodium 100 mg/ (Sodium Chloride) 100 mls @ 200 mls/hr IV Q12H [facility] PRN Reason: Protocol Last Admin: 04/17/18 04:40 Dose: 200 mls/hr Tigecycline 50 mg/ Sodium (Chloride) 100 mls @ 100 mls/hr IVPB Q12H [facility] PRN Reason: Protocol Last Admin: 04/17/18 14:04 Dose: 100 mls/hr Magnesium Hydroxide (Milk Of Magnesia) 30 ml GT HS PRN PRN Reason: Constipation Multivitamins/Vitamin C (Multi-Delyn Liquid) 5 ml GT DAILY [facility] Last Admin: 04/17/18 10:03 Dose: 5 ml Saccharomyces Boulardii (Florastor) 250 mg GT DAILY [facility] Last Admin: 04/17/18 10:02 Dose: 250 mg Vitamin A (Vitamin A & D Oint Ud Foilpak) 0.5 ea TOP BID PRN PRN Reason: Dry skin Last Admin: 04/16/18 20:49 Dose: 0.5 ea Zinc Sulfate (Zinc Sulfate 220 Mg Cap) 220 mg GT DAILY [facility] Last Admin: 04/17/18 10:02 Dose: 220 mg - Labs Labs: 04/17/18 07:10 04/17/18 07:10
--- NOTE | 2018-04-17 16:39 | CP.PCM.PN ---
Subjective - Date & Time of Evaluation Date of Evaluation: 04/17/18 Time of Evaluation: 12:00 - Subjective Subjective: clinically same Objective - Vital Signs/Intake and Output Vital Signs (last 24 hours): Temp Pulse Resp BP Pulse Ox 97.4 F L 85 20 124/86 96 04/17/18 15:00 04/17/18 15:00 04/17/18 15:00 04/17/18 15:00 04/17/18 15:00 Intake and Output: 04/17/18 04/17/18 06:59 18:59 Intake Total 1218 480 Output Total 1250 1200 Balance -32 -720 - Medications Medications: Current Medications Acetaminophen (Tylenol 650mg/20.3ml Solution Ud) 650 mg GT Q4 PRN PRN Reason: Pain, moderate (4-7) Last Admin: 04/16/18 17:31 Dose: 650 mg Albuterol/Ipratropium (Duoneb 3 Mg/0.5 Mg (3 Ml) Ud) 3 ml INH RQ6 [facility] Last Admin: 04/17/18 13:28 Dose: 3 ml Ascorbic Acid (Vitamin C 250 Mg Tab) 250 mg GT DAILY [facility] Last Admin: 04/17/18 10:02 Dose: 250 mg Aspirin (Aspirin Chewable) 81 mg PO DAILY [facility] Last Admin: 04/17/18 10:02 Dose: 81 mg Collagenase (Santyl) 0 gm TOP BID [facility] Last Admin: 04/17/18 10:05 Dose: 1 applic Diltiazem HCl (Cardizem) 30 mg PO Q6 [facility] Last Admin: 04/17/18 14:03 Dose: 30 mg Enoxaparin Sodium (Lovenox) 40 mg SC DAILY [facility] Last Admin: 04/17/18 10:03 Dose: 40 mg Folic Acid (Folic Acid) 1 mg GT DAILY [facility] Last Admin: 04/17/18 10:02 Dose: 1 mg Colistimethate Sodium 100 mg/ (Sodium Chloride) 100 mls @ 200 mls/hr IV Q12H [facility] PRN Reason: Protocol Last Admin: 04/17/18 04:40 Dose: 200 mls/hr Tigecycline 50 mg/ Sodium (Chloride) 100 mls @ 100 mls/hr IVPB Q12H [facility] PRN Reason: Protocol Last Admin: 04/17/18 14:04 Dose: 100 mls/hr Magnesium Hydroxide (Milk Of Magnesia) 30 ml GT HS PRN PRN Reason: Constipation Multivitamins/Vitamin C (Multi-Delyn Liquid) 5 ml GT DAILY [facility] Last Admin: 04/17/18 10:03 Dose: 5 ml Saccharomyces Boulardii (Florastor) 250 mg GT DAILY [facility] Last Admin: 04/17/18 10:02 Dose: 250 mg Vitamin A (Vitamin A & D Oint Ud Foilpak) 0.5 ea TOP BID PRN PRN Reason: Dry skin Last Admin: 04/16/18 20:49 Dose: 0.5 ea Zinc Sulfate (Zinc Sulfate 220 Mg Cap) 220 mg GT DAILY [facility] Last Admin: 04/17/18 10:02 Dose: 220 mg - Labs Labs: 04/17/18 07:10 04/17/18 07:10 - Constitutional Appears: Well - Head Exam Head Exam: ATRAUMATIC, NORMAL INSPECTION, NORMOCEPHALIC - Eye Exam Eye Exam: EOMI, Normal appearance, PERRL Pupil Exam: NORMAL ACCOMODATION, PERRL - ENT Exam ENT Exam: Mucous Membranes Moist, Normal Exam - Neck Exam Neck Exam: Full ROM, Normal Inspection. absent: Lymphadenopathy - Respiratory Exam Respiratory Exam: Decreased Breath Sounds - Cardiovascular Exam Cardiovascular Exam: REGULAR RHYTHM, +S1, +S2 - GI/Abdominal Exam GI & Abdominal Exam: Soft, Diminished Bowel Sounds - Rectal Exam Rectal Exam: Deferred
--- NOTE | 2018-04-17 17:12 | CP.PCM.PN ---
Subjective - Date & Time of Evaluation Date of Evaluation: 04/17/18 Time of Evaluation: 12:00 - Subjective Subjective: Patient seen and examined at bedside today. Patient was lying in bed comfortably in no acute distress. Patient is still spitting up sputum but not as much. Patient continues to have his tracheostomy suctioned by staff. Patient denies shortness of breath, chest pain, nausea, or vomiting. Patient states the only pain he has are in his feet; "they are sore." Patient has open wounds on feet and being managed by wound care. Assessment/Plan: 1. Tracheobronchitis - Trach Sputum Cx from 04/11 positive for Acinetobacter Baumanni - On Tygacil and Colymycin - Blood cx from 04/11 Negative - WBC 04/17: 5.2 - Continue Tracheostomy suctioning 2. COPD Exacerbation - 04/17 Carbon Dioxide Level on CMP was 46 - CXR 04/16: Hyperinflation consistent with underlying COPD or emphysema. Previously noted patchy consolidation changes seen in left upper lobe appears to have improved very slightly. Apparent scarring changes both lung apices and upper lobes. - Continue Duoneb -hold Lasix for metabolic alkalosis -Gentle hydration Objective - Vital Signs/Intake and Output Vital Signs (last 24 hours): Temp Pulse Resp BP Pulse Ox 97.4 F L 85 20 124/86 96 04/17/18 15:00 04/17/18 15:00 04/17/18 15:00 04/17/18 15:00 04/17/18 15:00 Intake and Output: 04/17/18 04/17/18 06:59 18:59 Intake Total 1218 480 Output Total 1250 1200 Balance -32 -720 - Medications Medications: Current Medications Acetaminophen (Tylenol 650mg/20.3ml Solution Ud) 650 mg GT Q4 PRN PRN Reason: Pain, moderate (4-7) Last Admin: 04/16/18 17:31 Dose: 650 mg Albuterol/Ipratropium (Duoneb 3 Mg/0.5 Mg (3 Ml) Ud) 3 ml INH RQ6 [facility] Last Admin: 04/17/18 13:28 Dose: 3 ml Ascorbic Acid (Vitamin C 250 Mg Tab) 250 mg GT DAILY [facility] Last Admin: 04/17/18 10:02 Dose: 250 mg Aspirin (Aspirin Chewable) 81 mg PO DAILY [facility] Last Admin: 04/17/18 10:02 Dose: 81 mg Collagenase (Santyl) 0 gm TOP BID [facility] Last Admin: 04/17/18 10:05 Dose: 1 applic Diltiazem HCl (Cardizem) 30 mg PO Q6 [facility] Last Admin: 04/17/18 14:03 Dose: 30 mg Enoxaparin Sodium (Lovenox) 40 mg SC DAILY [facility] Last Admin: 04/17/18 10:03 Dose: 40 mg Folic Acid (Folic Acid) 1 mg GT DAILY [facility] Last Admin: 04/17/18 10:02 Dose: 1 mg Colistimethate Sodium 100 mg/ (Sodium Chloride) 100 mls @ 200 mls/hr IV Q12H [facility] PRN Reason: Protocol Last Admin: 04/17/18 04:40 Dose: 200 mls/hr Tigecycline 50 mg/ Sodium (Chloride) 100 mls @ 100 mls/hr IVPB Q12H [facility] PRN Reason: Protocol Last Admin: 04/17/18 14:04 Dose: 100 mls/hr Magnesium Hydroxide (Milk Of Magnesia) 30 ml GT HS PRN PRN Reason: Constipation Multivitamins/Vitamin C (Multi-Delyn Liquid) 5 ml GT DAILY [facility] Last Admin: 04/17/18 10:03 Dose: 5 ml Saccharomyces Boulardii (Florastor) 250 mg GT DAILY [facility] Last Admin: 04/17/18 10:02 Dose: 250 mg Vitamin A (Vitamin A & D Oint Ud Foilpak) 0.5 ea TOP BID PRN PRN Reason: Dry skin Last Admin: 04/16/18 20:49 Dose: 0.5 ea Zinc Sulfate (Zinc Sulfate 220 Mg Cap) 220 mg GT DAILY [facility] Last Admin: 04/17/18 10:02 Dose: 220 mg - Labs Labs: 04/17/18 07:10 04/17/18 07:10
--- NOTE | 2018-04-17 19:43 | CP.PCM.PN ---
Subjective - Date & Time of Evaluation Date of Evaluation: 04/17/18 Time of Evaluation: 19:43 - Subjective Subjective: CHIEF COMPLAINTS TODAY : AFEBRILE, AAO +VE TRACH +THICK COPIOUS SECRETIONS SPUTUM +VE ACINITIBACTER-BAUMANNI -MDR. S- COLISTIN/TYGACIL ROS. on observation only HEENT : N. Resp : No cough, wheezing ,pleuritic CP ,or hemoptysis Cardio : No anginal CP, PND, orthopnea, palpitation GI : No abd.pain, n/v ,diarrhea or GI bleeding . 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 Musculoskel : No joint swelling , Derm : No rash Psych : Normal affect. Ext : No swelling ,calf pain PE. Pt. is alert awake in no distress. V.S As noted in the chart Head ,ear nose,throat and eyes : Normal. +ve TRACHEOSTOMY Neck : Supple with normal carotids. Lungs: B/L RHONCHI. Heart : S1 & S2 normal with S4. No murmur. Abd : Soft non tender with normal bowel sounds. Neuro : Moves all ext. with no localized deficit. Ext : No edema with intact pulses.Non tender calves Derm : No rashes or decubitus ulcer. LABS/RADIOLOGY: REVIEWED BLOOD CULTURES NEGATIVE GROWTH X 48HRS SPUTUM--+VE ACINITIBACTER-BAUMANNI -MDR. S- COLISTIN/TYGACIL ASSESSMENT/PLAN : B/L MDR CAVITARY PNEUMONIA RESP. FAILURE S/P TRACHEOSTOMY. EXASCERBATION OF COPD. LARYNGEAL CA STRICT CONTACT PRECAUTIONS CONTINUE IV COLISTIN 100MG IV Q12 HRLY 04/14/18/ START IV TYGACIL 100MG IV LD --F/U 04/14/18 CONTINUE TYGACIL 50 MG IV [id number] TO AVOID RESISTANCE . ON TRANSFER TO [facility] , PT CAN BE SWICHED TO IV UNASYN 1.5GM Q8HRLY X 21 DAYS IV COLISTIN 150MG IV ONCE DAILY X 21DAYS. F/U CT CHEST TO EVALUATE FOR B/L CAVITARY PNEUMONIA/AND COMPARE W PREVIOUS HRCT SCAN TO DECIDE ON ABX DURATION IN 3 WEEKS . F/U CBC ,BMP, LFTS WEEKLY COLISTIN NEPHROTOXIC. SUCTION WHEN NECESSARY PER PULMONARY. CONTINUE STRICT CONTACT PRECAUTIONS WILL F/U PT WHILE IN HOSPITAL. Objective - Vital Signs/Intake and Output Vital Signs (last 24 hours): Temp Pulse Resp BP Pulse Ox 97.4 F L 85 20 124/86 96 04/17/18 15:00 04/17/18 15:00 04/17/18 15:00 04/17/18 15:00 04/17/18 15:00 Intake and Output: 04/17/18 04/18/18 18:59 06:59 Intake Total 480 Output Total 1200 Balance -720 - Medications Medications: Current Medications Acetaminophen (Tylenol 650mg/20.3ml Solution Ud) 650 mg GT Q4 PRN PRN Reason: Pain, moderate (4-7) Last Admin: 04/16/18 17:31 Dose: 650 mg Albuterol/Ipratropium (Duoneb 3 Mg/0.5 Mg (3 Ml) Ud) 3 ml INH RQ6 [facility] Last Admin: 04/17/18 13:28 Dose: 3 ml Ascorbic Acid (Vitamin C 250 Mg Tab) 250 mg GT DAILY [facility] Last Admin: 04/17/18 10:02 Dose: 250 mg Aspirin (Aspirin Chewable) 81 mg PO DAILY [facility] Last Admin: 04/17/18 10:02 Dose: 81 mg Collagenase (Santyl) 0 gm TOP BID [facility] Last Admin: 04/17/18 17:55 Dose: Not Given Diltiazem HCl (Cardizem) 30 mg PO Q6 [facility] Last Admin: 04/17/18 17:35 Dose: 30 mg Enoxaparin Sodium (Lovenox) 40 mg SC DAILY [facility] Last Admin: 04/17/18 10:03 Dose: 40 mg Folic Acid (Folic Acid) 1 mg GT DAILY [facility] Last Admin: 04/17/18 10:02 Dose: 1 mg Colistimethate Sodium 100 mg/ (Sodium Chloride) 100 mls @ 200 mls/hr IV Q12H JUANA PRN Reason: Protocol Last Admin: 04/17/18 17:35 Dose: 200 mls/hr Tigecycline 50 mg/ Sodium (Chloride) 100 mls @ 100 mls/hr IVPB Q12H JUANA PRN Reason: Protocol Last Admin: 04/17/18 14:04 Dose: 100 mls/hr Magnesium Hydroxide (Milk Of Magnesia) 30 ml GT HS PRN PRN Reason: Constipation Multivitamins/Vitamin C (Multi-Delyn Liquid) 5 ml GT DAILY [facility] Last Admin: 06/05/18 10:03 Dose: 5 ml Saccharomyces Boulardii (Florastor) 250 mg GT DAILY [facility] Last Admin: 04/17/18 10:02 Dose: 250 mg Vitamin A (Vitamin A & D Oint Ud Foilpak) 0.5 ea TOP BID PRN PRN Reason: Dry skin Last Admin: 04/16/18 20:49 Dose: 0.5 ea Zinc Sulfate (Zinc Sulfate 220 Mg Cap) 220 mg GT DAILY [facility] Last Admin: 04/17/18 10:02 Dose: 220 mg - Labs Labs: 04/17/18 07:10 04/17/18 07:10 Assessment and Plan (1) Acute on chronic respiratory failure with hypoxia and hypercapnia Status: Acute (2) Pneumonia Status: Acute (3) COPD (chronic obstructive pulmonary disease) with emphysema Status: Chronic (4) Laryngeal cancer Status: Chronic (5) HTN (hypertension) Status: Acute
[2018-04-18] MEDS: Albuterol-Ipratrop 3 mg / 0.5 (3 ml) UD INH SCH ×4 (01:08→19:23)
[2018-04-18 08:11] LABS: BLOOD UREA NITROGEN 35 mg/dL (9-20); CALCIUM 8.9 mg/dl (8.6-10.4); GFR AFRICAN-AMERICAN > 60; GFR NON-AFRICAN AMERICAN > 60
[2018-04-18] MEDS: Multiple Vitamins Oral Solution GT SCH (11:00)
[2018-04-18] MEDS: Enoxaparin 40 mg Syringe SC SCH (11:00)
[2018-04-18] MEDS: Saccharomyces Boulardi 250 mg Cap GT SCH (11:00)
[2018-04-18] MEDS: Collagenase 250 Units/gm Ointment(30 gm) TOP SCH (11:30)
--- NOTE | 2018-04-18 17:42 | CP.PCM.PN ---
Subjective - Date & Time of Evaluation Date of Evaluation: 04/18/18 Time of Evaluation: 11:00 - Subjective Subjective: Patient seen and examined at bedside today. Patient was lying in bed comfortably in no acute distress. Patient is spitting up sputum but not as much. Patient continues to have his tracheostomy suctioned by staff. Patient denies shortness of breath, chest pain, nausea, or vomiting. Patient complains of pain on urination and pain in lower extremities from open wounds. Assessment/Plan: 1. COPD Exacerbation - Patient not cleared for discharged. Carbon dioxide level severely elevated. - 04/18 Carbon Dioxide Level on CMP was 45 - Urine Chloride ordered, awaiting results - CXR 04/16: Hyperinflation consistent with underlying COPD or emphysema. Previously noted patchy consolidation changes seen in left upper lobe appears to have improved very slightly. Apparent scarring changes both lung apices and upper lobes. - Continue Duoneb 2. Tracheobronchitis - Trach Sputum Cx from 04/11 positive for Acinetobacter Baumanni - On Tygacil and Colymycin - Blood cx from 04/11 Negative - WBC 04/17: 5.2 - Continue Tracheostomy suctioning Objective - Vital Signs/Intake and Output Vital Signs (last 24 hours): Temp Pulse Resp BP Pulse Ox 97.4 F L 94 H 18 122/84 100 04/18/18 15:10 04/18/18 15:10 04/18/18 15:10 04/18/18 15:10 04/18/18 15:10 Intake and Output: 04/18/18 04/18/18 06:59 18:59 Intake Total 1200 620 Output Total 1750 800 Balance -550 -180 - Medications Medications: Current Medications Acetaminophen (Tylenol 650mg/20.3ml Solution Ud) 650 mg GT Q4 PRN PRN Reason: Pain, moderate (4-7) Last Admin: 04/16/18 17:31 Dose: 650 mg Albuterol/Ipratropium (Duoneb 3 Mg/0.5 Mg (3 Ml) Ud) 3 ml INH RQ6 [facility] Last Admin: 04/18/18 13:17 Dose: 3 ml Ascorbic Acid (Vitamin C 250 Mg Tab) 250 mg GT DAILY [facility] Last Admin: 04/18/18 11:00 Dose: 250 mg Aspirin (Aspirin Chewable) 81 mg PO DAILY [facility] Last Admin: 04/18/18 11:00 Dose: 81 mg Diltiazem HCl (Cardizem) 30 mg PO Q6 [facility] Last Admin: 04/18/18 11:21 Dose: 30 mg Enoxaparin Sodium (Lovenox) 40 mg SC DAILY [facility] Last Admin: 04/18/18 11:00 Dose: 40 mg Folic Acid (Folic Acid) 1 mg GT DAILY [facility] Last Admin: 04/18/18 11:00 Dose: 1 mg Colistimethate Sodium 100 mg/ (Sodium Chloride) 100 mls @ 200 mls/hr IV Q12H JUANA PRN Reason: Protocol Last Admin: 04/18/18 05:30 Dose: 200 mls/hr Tigecycline 50 mg/ Sodium (Chloride) 100 mls @ 100 mls/hr IVPB Q12H JUANA PRN Reason: Protocol Last Admin: 04/18/18 14:30 Dose: 100 mls/hr Magnesium Hydroxide (Milk Of Magnesia) 30 ml GT HS PRN PRN Reason: Constipation Multivitamins/Vitamin C (Multi-Delyn Liquid) 5 ml GT DAILY [facility] Last Admin: 04/18/18 11:00 Dose: 5 ml Saccharomyces Boulardii (Florastor) 250 mg GT DAILY [facility] Last Admin: 04/18/18 11:00 Dose: 250 mg Vitamin A (Vitamin A & D Oint Ud Foilpak) 0.5 ea TOP BID PRN PRN Reason: Dry skin Last Admin: 04/16/18 20:49 Dose: 0.5 ea Zinc Sulfate (Zinc Sulfate 220 Mg Cap) 220 mg GT DAILY [facility] Last Admin: 04/18/18 11:00 Dose: 220 mg - Labs Labs: 04/17/18 07:10 04/18/18 06:48
--- NOTE | 2018-04-18 19:17 | CP.PCM.PN ---
Subjective - Date & Time of Evaluation Date of Evaluation: 04/18/18 Time of Evaluation: 16:00 - Subjective Subjective: CHIEF COMPLAINTS TODAY : AFEBRILE, AAO +VE TRACH +THICK COPIOUS SECRETIONS SPUTUM +VE ACINITIBACTER-BAUMANNI -MDR. S- COLISTIN/TYGACIL ROS. on observation only HEENT : N. Resp : No cough, wheezing ,pleuritic CP ,or hemoptysis Cardio : No anginal CP, PND, orthopnea, palpitation GI : No abd.pain, n/v ,diarrhea or GI bleeding . 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 Musculoskel : No joint swelling , Derm : No rash Psych : Normal affect. Ext : No swelling ,calf pain PE. Pt. is alert awake in no distress. V.S As noted in the chart Head ,ear nose,throat and eyes : Normal. +ve TRACHEOSTOMY Neck : Supple with normal carotids. Lungs: B/L RHONCHI. Heart : S1 & S2 normal with S4. No murmur. Abd : Soft non tender with normal bowel sounds. Neuro : Moves all ext. with no localized deficit. Ext : No edema with intact pulses.Non tender calves Derm : No rashes or decubitus ulcer. LABS/RADIOLOGY: REVIEWED BLOOD CULTURES NEGATIVE GROWTH X 48HRS SPUTUM--+VE ACINITIBACTER-BAUMANNI -MDR. S- COLISTIN/TYGACIL ASSESSMENT/PLAN : B/L MDR CAVITARY PNEUMONIA RESP. FAILURE S/P TRACHEOSTOMY. EXASCERBATION OF COPD. LARYNGEAL CA STRICT CONTACT PRECAUTIONS CONTINUE IV COLISTIN 100MG IV Q12 HRLY 04/14/18/ START IV TYGACIL 100MG IV LD --F/U 04/14/18 CONTINUE TYGACIL 50 MG IV [id number] TO AVOID RESISTANCE . ON TRANSFER TO [facility] , PT CAN BE SWICHED TO IV UNASYN 1.5GM Q8HRLY X 21 DAYS IV COLISTIN 150MG IV ONCE DAILY X 21DAYS. F/U CT CHEST TO EVALUATE FOR B/L CAVITARY PNEUMONIA/AND COMPARE W PREVIOUS HRCT SCAN TO DECIDE ON ABX DURATION IN 3 WEEKS . F/U CBC ,BMP, LFTS WEEKLY COLISTIN NEPHROTOXIC. SUCTION WHEN NECESSARY PER PULMONARY. CONTINUE STRICT CONTACT PRECAUTIONS WILL F/U PT WHILE IN HOSPITAL. Objective - Vital Signs/Intake and Output Vital Signs (last 24 hours): Temp Pulse Resp BP Pulse Ox 97.4 F L 94 H 18 122/84 100 04/18/18 15:10 04/18/18 15:10 04/18/18 15:10 04/18/18 15:10 04/18/18 15:10 Intake and Output: 04/18/18 04/19/18 18:59 06:59 Intake Total 620 Output Total 800 Balance -180 - Medications Medications: Current Medications Acetaminophen (Tylenol 650mg/20.3ml Solution Ud) 650 mg GT Q4 PRN PRN Reason: Pain, moderate (4-7) Last Admin: 04/16/18 17:31 Dose: 650 mg Albuterol/Ipratropium (Duoneb 3 Mg/0.5 Mg (3 Ml) Ud) 3 ml INH RQ6 [facility] Last Admin: 04/18/18 13:17 Dose: 3 ml Ascorbic Acid (Vitamin C 250 Mg Tab) 250 mg GT DAILY [facility] Last Admin: 04/18/18 11:00 Dose: 250 mg Aspirin (Aspirin Chewable) 81 mg PO DAILY [facility] Last Admin: 04/18/18 11:00 Dose: 81 mg Diltiazem HCl (Cardizem) 30 mg PO Q6 [facility] Last Admin: 04/18/18 17:54 Dose: 30 mg Enoxaparin Sodium (Lovenox) 40 mg SC DAILY [facility] Last Admin: 04/18/18 11:00 Dose: 40 mg Folic Acid (Folic Acid) 1 mg GT DAILY [facility] Last Admin: 04/18/18 11:00 Dose: 1 mg Colistimethate Sodium 100 mg/ (Sodium Chloride) 100 mls @ 200 mls/hr IV Q12H JUANA PRN Reason: Protocol Last Admin: 04/18/18 17:53 Dose: 200 mls/hr Tigecycline 50 mg/ Sodium (Chloride) 100 mls @ 100 mls/hr IVPB Q12H JUANA PRN Reason: Protocol Last Admin: 04/18/18 14:30 Dose: 100 mls/hr Magnesium Hydroxide (Milk Of Magnesia) 30 ml GT HS PRN PRN Reason: Constipation Multivitamins/Vitamin C (Multi-Delyn Liquid) 5 ml GT DAILY [facility] Last Admin: 04/18/18 11:00 Dose: 5 ml Saccharomyces Boulardii (Florastor) 250 mg GT DAILY [facility] Last Admin: 04/18/18 11:00 Dose: 250 mg Vitamin A (Vitamin A & D Oint Ud Foilpak) 0.5 ea TOP BID PRN PRN Reason: Dry skin Last Admin: 04/16/18 20:49 Dose: 0.5 ea Zinc Sulfate (Zinc Sulfate 220 Mg Cap) 220 mg GT DAILY [facility] Last Admin: 04/18/18 11:00 Dose: 220 mg - Labs Labs: 04/17/18 07:10 04/18/18 06:48 Assessment and Plan (1) Acute on chronic respiratory failure with hypoxia and hypercapnia Status: Acute (2) Pneumonia Status: Acute (3) COPD (chronic obstructive pulmonary disease) with emphysema Status: Chronic (4) Laryngeal cancer Status: Chronic (5) HTN (hypertension) Status: Acute
--- NOTE | 2018-04-18 20:18 | CP.PCM.PN ---
Subjective - Date & Time of Evaluation Date of Evaluation: 04/18/18 Time of Evaluation: 10:00 - Subjective Subjective: clinically same Objective - Vital Signs/Intake and Output Vital Signs (last 24 hours): Temp Pulse Resp BP Pulse Ox 97.4 F L 94 H 18 122/84 100 04/18/18 15:10 04/18/18 15:10 04/18/18 15:10 04/18/18 15:10 04/18/18 15:10 Intake and Output: 04/18/18 04/19/18 18:59 06:59 Intake Total 620 Output Total 800 Balance -180 - Medications Medications: Current Medications Acetaminophen (Tylenol 650mg/20.3ml Solution Ud) 650 mg GT Q4 PRN PRN Reason: Pain, moderate (4-7) Last Admin: 04/16/18 17:31 Dose: 650 mg Albuterol/Ipratropium (Duoneb 3 Mg/0.5 Mg (3 Ml) Ud) 3 ml INH RQ6 [facility] Last Admin: 04/18/18 19:23 Dose: 3 ml Ascorbic Acid (Vitamin C 250 Mg Tab) 250 mg GT DAILY [facility] Last Admin: 04/18/18 11:00 Dose: 250 mg Aspirin (Aspirin Chewable) 81 mg PO DAILY [facility] Last Admin: 04/18/18 11:00 Dose: 81 mg Diltiazem HCl (Cardizem) 30 mg PO Q6 [facility] Last Admin: 04/18/18 17:54 Dose: 30 mg Enoxaparin Sodium (Lovenox) 40 mg SC DAILY [facility] Last Admin: 04/18/18 11:00 Dose: 40 mg Folic Acid (Folic Acid) 1 mg GT DAILY [facility] Last Admin: 04/18/18 11:00 Dose: 1 mg Colistimethate Sodium 100 mg/ (Sodium Chloride) 100 mls @ 200 mls/hr IV Q12H JUANA PRN Reason: Protocol Last Admin: 04/18/18 17:53 Dose: 200 mls/hr Tigecycline 50 mg/ Sodium (Chloride) 100 mls @ 100 mls/hr IVPB Q12H JUANA PRN Reason: Protocol Last Admin: 04/18/18 14:30 Dose: 100 mls/hr Magnesium Hydroxide (Milk Of Magnesia) 30 ml GT HS PRN PRN Reason: Constipation Multivitamins/Vitamin C (Multi-Delyn Liquid) 5 ml GT DAILY [facility] Last Admin: 04/18/18 11:00 Dose: 5 ml Saccharomyces Boulardii (Florastor) 250 mg GT DAILY [facility] Last Admin: 04/18/18 11:00 Dose: 250 mg Vitamin A (Vitamin A & D Oint Ud Foilpak) 0.5 ea TOP BID PRN PRN Reason: Dry skin Last Admin: 04/16/18 20:49 Dose: 0.5 ea Zinc Sulfate (Zinc Sulfate 220 Mg Cap) 220 mg GT DAILY [facility] Last Admin: 04/18/18 11:00 Dose: 220 mg - Labs Labs: 04/17/18 07:10 04/18/18 06:48 - Constitutional Appears: Well - Head Exam Head Exam: ATRAUMATIC, NORMAL INSPECTION, NORMOCEPHALIC - Eye Exam Eye Exam: EOMI, Normal appearance, PERRL Pupil Exam: NORMAL ACCOMODATION, PERRL - ENT Exam ENT Exam: Mucous Membranes Moist, Normal Exam - Neck Exam Neck Exam: Full ROM, Normal Inspection. absent: Lymphadenopathy - Respiratory Exam Respiratory Exam: Decreased Breath Sounds - Cardiovascular Exam Cardiovascular Exam: REGULAR RHYTHM, +S1, +S2 - GI/Abdominal Exam GI & Abdominal Exam: Soft, Diminished Bowel Sounds - Rectal Exam Rectal Exam: Deferred
[2018-04-19 01:36] VITALS: RESP 20
[2018-04-19] MEDS: Albuterol-Ipratrop 3 mg / 0.5 (3 ml) UD INH SCH ×3 (02:39→13:32)
--- NOTE | 2018-04-19 09:56 | PCM.SURG1 ---
Surgeon's Initial Post Op Note - Surgeon's Notes Surgeon: Otoniel Barrera MD Vice President: NONE Type of Anesthesia: Local Pre-Operative Diagnosis: Infection Operative Findings: US showed a patent right brachial vein Post-Operative Diagnosis: Infection Operation Performed: Picc placement right arm, 43 cm. Tip is in the SVC. Specimen/Specimens Removed: NONE Estimated Blood Loss: EBL {In ML}: 1 Blood Products Given: N/A Drains Used: No Drains Post-Op Condition: Fair Date of Surgery/Procedure: 04/19/18 Time of Surgery/Procedure: 09:50
--- NOTE | 2018-04-19 10:34 | SPECPROC ---
PROCEDURE: Date of procedure: 04/19/2018 Procedure: 1. Placement of a right arm PICC with ultrasound and fluoroscopic guidance, CPT 45391 2. PICC tip confirmation with spot radiograph and is in the superior vena cava Medications: 1 percent lidocaine Total Fluoro time: 0.7 seconds Radiation: 1 mGy EBL: 2 cc HISTORY: Infection requiring long-term IV antibiotics TECHNIQUE: Following informed consent and procedure time-out, the patient was placed supine on the interventional table and the right arm prepped and draped in the usual sterile fashion. Ultrasound showed a patent and compressible right basilic vein. After the skin was anesthetized with lidocaine, the basilic vein was accessed with micro micropuncture technique using ultrasound guidance. A guidewire was then advanced under fluoroscopic guidance into the superior vena cava. An image documenting ultrasound guidance for vascular access was permanently saved. The length of the single-lumen 4 Danish PICC was trimmed to 43 centimeters and advanced through a peel-away sheath. The PICC was position with tip of PICC confirm a spot radiograph the superior vena cava. The PICC was secured to the patient's skin. The PICC was flushed. A biopatch and sterile dressing was applied. IMPRESSION: Placement of a single-lumen 4 Danish PICC trimmed to 43 centimeters via right basilic vein. The tip of the PICC is confirmed with spot radiograph and is in the superior vena cava.
[2018-04-19] MEDS: Saccharomyces Boulardi 250 mg Cap GT SCH (10:58)
[2018-04-19] MEDS: Multiple Vitamins Oral Solution GT SCH (10:58)
[2018-04-19] MEDS: Enoxaparin 40 mg Syringe SC SCH (10:58)
[2018-04-19 12:17] LABS: ARTERIAL BLOOD GAS HCO3 37.7 mmol/L (21-28); ARTERIAL BLOOD GAS HEMOGLOBIN 13.8 g/dL (11.7-17.4); ARTERIAL BLOOD GAS O2 SAT 98.3 % (95-98); ARTERIAL BLOOD GAS PCO2 75 mm/Hg (35-45); ARTERIAL BLOOD GAS PH 7.39 (7.35-7.45); ARTERIAL BLOOD GAS PO2 93 mm/Hg (80-100); ARTERIAL BLOOD GAS TCO2 47.7 mmol/L (22-28)
--- NOTE | 2018-04-19 12:17 | CP.PCM.PN ---
Subjective - Date & Time of Evaluation Date of Evaluation: 04/19/18 Time of Evaluation: 12:17 - Subjective Subjective: CHIEF COMPLAINTS TODAY : AFEBRILE, AAO +VE TRACH s/p rt brachial vein PICC LINE 04/19/18 SPUTUM +VE ACINITIBACTER-BAUMANNI -MDR. S- COLISTIN/TYGACIL ROS. on observation only HEENT : N. Resp : No cough, wheezing ,pleuritic CP ,or hemoptysis Cardio : No anginal CP, PND, orthopnea, palpitation GI : No abd.pain, n/v ,diarrhea or GI bleeding . 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 Musculoskel : No joint swelling , Derm : No rash Psych : Normal affect. Ext : No swelling ,calf pain PE. Pt. is alert awake in no distress. V.S As noted in the chart Head ,ear nose,throat and eyes : Normal. +ve TRACHEOSTOMY Neck : Supple with normal carotids. Lungs: B/L RHONCHI. Heart : S1 & S2 normal with S4. No murmur. Abd : Soft non tender with normal bowel sounds. Neuro : Moves all ext. with no localized deficit. Ext : No edema with intact pulses.Non tender calves Derm : No rashes or decubitus ulcer. LABS/RADIOLOGY: REVIEWED BLOOD CULTURES NEGATIVE GROWTH X TO DATE SPUTUM--+VE ACINITIBACTER-BAUMANNI -MDR. S- COLISTIN/TYGACIL ASSESSMENT/PLAN : B/L MDR CAVITARY PNEUMONIA RESP. FAILURE S/P TRACHEOSTOMY. EXASCERBATION OF COPD. LARYNGEAL CA STRICT CONTACT PRECAUTIONS CONTINUE IV COLISTIN 100MG IV Q12 HRLY 04/14/18/ DC IV TYGACIL 100MG IV LD --F/U 04/14/18---04/19/18 . ON TRANSFER TO [facility] , PT CAN BE SWICHED TO IV UNASYN 1.5GM Q8HRLY X 21 DAYS IV COLISTIN 150MG IV ONCE DAILY X 21DAYS. F/U HRCT TO EVALUATE B/L CAVITARY MDR PNEUMONIA AND REVALUATE FOR ANTIBIOTICS. WIIL F/U PT WHILE IN HOSPITAL. NEED TO F/U PT FOR NEPHROTOXICITY WITH COLISTIN. ALSO F/U CBC/LFTS WEEKLY TO AVOID BM DEPRESSION AND LIVER TOXICITY. Objective - Vital Signs/Intake and Output Vital Signs (last 24 hours): Temp Pulse Resp BP Pulse Ox 98.2 F 84 20 101/70 97 04/19/18 11:03 04/19/18 11:03 04/19/18 11:03 04/19/18 11:03 04/19/18 07:30 Intake and Output: 04/19/18 04/19/18 06:59 18:59 Intake Total 1220 Output Total 1300 Balance -80 - Medications Medications: Current Medications Acetaminophen (Tylenol 650mg/20.3ml Solution Ud) 650 mg GT Q4 PRN PRN Reason: Pain, moderate (4-7) Last Admin: 04/16/18 17:31 Dose: 650 mg Albuterol/Ipratropium (Duoneb 3 Mg/0.5 Mg (3 Ml) Ud) 3 ml INH RQ6 [facility] Last Admin: 04/19/18 07:20 Dose: 3 ml Ascorbic Acid (Vitamin C 250 Mg Tab) 250 mg GT DAILY [facility] Last Admin: 04/19/18 10:58 Dose: 250 mg Aspirin (Aspirin Chewable) 81 mg PO DAILY [facility] Last Admin: 04/19/18 10:58 Dose: 81 mg Diltiazem HCl (Cardizem) 30 mg PO Q6 [facility] Last Admin: 04/19/18 11:04 Dose: 30 mg Folic Acid (Folic Acid) 1 mg GT DAILY [facility] Last Admin: 04/19/18 10:57 Dose: 1 mg Colistimethate Sodium 100 mg/ (Sodium Chloride) 100 mls @ 200 mls/hr IV Q12H [facility] PRN Reason: Protocol Last Admin: 04/19/18 04:25 Dose: 200 mls/hr Tigecycline 50 mg/ Sodium (Chloride) 100 mls @ 100 mls/hr IVPB Q12H [facility] PRN Reason: Protocol Last Admin: 04/19/18 01:20 Dose: 100 mls/hr Magnesium Hydroxide (Milk Of Magnesia) 30 ml GT HS PRN PRN Reason: Constipation Multivitamins/Vitamin C (Multi-Delyn Liquid) 5 ml GT DAILY [facility] Last Admin: 04/19/18 10:58 Dose: 5 ml Saccharomyces Boulardii (Florastor) 250 mg GT DAILY [facility] Last Admin: 04/19/18 10:58 Dose: 250 mg Vitamin A (Vitamin A & D Oint Ud Foilpak) 0.5 ea TOP BID PRN PRN Reason: Dry skin Last Admin: 04/16/18 20:49 Dose: 0.5 ea Zinc Sulfate (Zinc Sulfate 220 Mg Cap) 220 mg GT DAILY [facility] Last Admin: 04/19/18 10:58 Dose: 220 mg - Labs Labs: 04/17/18 07:10 04/18/18 06:48 Assessment and Plan (1) Acute on chronic respiratory failure with hypoxia and hypercapnia Status: Acute (2) Pneumonia Status: Acute (3) COPD (chronic obstructive pulmonary disease) with emphysema Status: Chronic (4) Laryngeal cancer Status: Chronic (5) HTN (hypertension) Status: Acute
--- NOTE | 2018-04-19 12:36 | CP.PCM.PN ---
Subjective - Date & Time of Evaluation Date of Evaluation: 04/19/18 Time of Evaluation: 12:25 - Subjective Subjective: PT CLEARED BY DR. LANDRY THIS MORNING FOR D/C AND DR. Mushtaq CESAR. DR. HA ALSO CLEARED PT WITH RECOMMENDATIONS TO CONTINUE UNASYN 1.5 GM IV Q8 HOURS AND COLY- MYCIN 150 MG IV DAILY---BOTH X3 WEEKS (STARTED ON 04/18/18 AND LAST DOSE TO BE GIVEN ON 05/09/18). PER DR. HA'S RECOMMENDATIONS, WEEKLY LABS (CBC, LFT, BMP) X3 WEEKS AND A REPEAT CHEST CT IN 3 WEEKS (FURTHER ABX TREATMENT TO BE RE- EVALUATED BY ATTENDING AFTER CHEST CT RESULTED). PT HAD PICC INSERTED THIS MORNING AND TOLERATED WELL. HE WILL BE D/C WITH PICC IN PLACE FOR THE ABX REGIMEN. TO BE PLACED UNDER THE SERVICE OF DR. Mushtaq CESAR AT [facility]. PT'S NEPHEW, RADHA, AWARE OF THE D/C AND HE IS IN AGREEMENT. SW TO ARRANGE TRANSPORTATION. NO FURTHER ORDERS. -PLACE UNDER THE SERVICE OF DR. Rhonda CESAR WHILE AT [facility]---CALL DR. CESAR UPON ARRIVAL TO FACILITY FOR ADMITTING ORDERS AND BED ASSIGNMENT. -CONTINUE MEDICATIONS PER THE MED REC FORM---CHANGES CAN BE MADE BY DR. Rhonda CESAR. -PER DR. HA (ID) CONTINUE THE FOLLOWING MEDICATIONS: COLY-MYCIN (COLISTIN) 150 MG IV ONCE A DAY X3 WEEKS AND UNASYN 1.5 GM IV Q8 HOURS X3 WEEKS----(STARTED ON 04/18/18 AND LAST DOSE TO BE GIVEN ON 05/09/18); WEEKLY LABS: CBC, BMP, LFTS; REPEAT CHEST CT DONE IN 3 WEEKS AFTER THE IV ABX REGIMEN IS COMPLETED. AFTER THE CHEST CT IS RESULTED, ATTENDING TO FOLLOW UP WITH RESULTS AND RE-EVAL FOR FURTHER ANTIBIOTIC THERAPY. -ASPIRATION PRECAUTIONS. -CONTINUE PEG FEEDINGS USUAL. -PLEASE HAVE WOUND CARE TEAM AT [facility] EVALUATE MR. FOSS AND MAKE RECOMMENDATIONS. -REPOSITION EVERY 2 HOURS PLEASE. -CONTINUE TRACH AND PEG CARE. CONTINUE OXYGEN VIA TRACH COLLAR AT 40%. -FOR FURTHER ORDERS, CONTACT DR. Rhonda CESAR. Objective - Vital Signs/Intake and Output Vital Signs (last 24 hours): Temp Pulse Resp BP Pulse Ox 98.2 F 84 20 101/70 97 06/07/18 11:03 04/19/18 11:03 04/19/18 11:03 04/19/18 11:03 04/19/18 07:30 Intake and Output: 04/19/18 04/19/18 06:59 18:59 Intake Total 1220 Output Total 1300 Balance -80 - Medications Medications: Current Medications Acetaminophen (Tylenol 650mg/20.3ml Solution Ud) 650 mg GT Q4 PRN PRN Reason: Pain, moderate (4-7) Last Admin: 04/16/18 17:31 Dose: 650 mg Albuterol/Ipratropium (Duoneb 3 Mg/0.5 Mg (3 Ml) Ud) 3 ml INH RQ6 [facility] Last Admin: 04/19/18 07:20 Dose: 3 ml Ascorbic Acid (Vitamin C 250 Mg Tab) 250 mg GT DAILY [facility] Last Admin: 04/19/18 10:58 Dose: 250 mg Aspirin (Aspirin Chewable) 81 mg PO DAILY [facility] Last Admin: 04/19/18 10:58 Dose: 81 mg Diltiazem HCl (Cardizem) 30 mg PO Q6 [facility] Last Admin: 04/19/18 11:04 Dose: 30 mg Folic Acid (Folic Acid) 1 mg GT DAILY [facility] Last Admin: 04/19/18 10:57 Dose: 1 mg Colistimethate Sodium 100 mg/ (Sodium Chloride) 100 mls @ 200 mls/hr IV Q12H [facility] PRN Reason: Protocol Last Admin: 04/19/18 04:25 Dose: 200 mls/hr Tigecycline 50 mg/ Sodium (Chloride) 100 mls @ 100 mls/hr IVPB Q12H [facility] PRN Reason: Protocol Last Admin: 04/19/18 01:20 Dose: 100 mls/hr Magnesium Hydroxide (Milk Of Magnesia) 30 ml GT HS PRN PRN Reason: Constipation Multivitamins/Vitamin C (Multi-Delyn Liquid) 5 ml GT DAILY [facility] Last Admin: 04/19/18 10:58 Dose: 5 ml Saccharomyces Boulardii (Florastor) 250 mg GT DAILY [facility] Last Admin: 04/19/18 10:58 Dose: 250 mg Vitamin A (Vitamin A & D Oint Ud Foilpak) 0.5 ea TOP BID PRN PRN Reason: Dry skin Last Admin: 04/16/18 20:49 Dose: 0.5 ea Zinc Sulfate (Zinc Sulfate 220 Mg Cap) 220 mg GT DAILY [facility] Last Admin: 04/19/18 10:58 Dose: 220 mg - Labs Labs: 04/17/18 07:10 04/18/18 06:48
[2018-04-19 14:18] VITALS: BP 119/75; PULSE 98; TEMP 97.8; O2SAT 95
--- NOTE | 2018-04-19 18:05 | CP.PCM.PN ---
Subjective - Date & Time of Evaluation Date of Evaluation: 04/19/18 Time of Evaluation: 10:45 - Subjective Subjective: Patient seen and examined at bedside today. Patient was lying in bed comfortably in no acute distress. Patient continues to have his tracheostomy suctioned by staff. Patient denies shortness of breath or chest pain. Assessment/Plan: 1. COPD Exacerbation - Patient not cleared for discharged. Carbon dioxide level severely elevated. -Repeat ABG - 04/18 Carbon Dioxide Level on CMP was 45 - Urine Chloride ordered, awaiting results - CXR 04/16: Hyperinflation consistent with underlying COPD or emphysema. Previously noted patchy consolidation changes seen in left upper lobe appears to have improved very slightly. Apparent scarring changes both lung apices and upper lobes. - Continue Duoneb 2. Tracheobronchitis - Trach Sputum Cx from 04/11 positive for Acinetobacter Baumanni - On Tygacil and Colymycin - Blood cx from 04/11 Negative - WBC 04/17: 5.2 - Continue Tracheostomy suctioning Objective - Vital Signs/Intake and Output Vital Signs (last 24 hours): Temp Pulse Resp BP Pulse Ox 97.8 F 98 H 20 119/75 95 04/19/18 13:50 04/19/18 13:50 04/19/18 13:50 04/19/18 13:50 04/19/18 13:50 Intake and Output: 04/19/18 04/19/18 06:59 18:59 Intake Total 1220 Output Total 1300 Balance -80 - Labs Labs: 04/17/18 07:10 04/18/18 06:48
== END 2018-04-19 14:37 | DRG 193 ==
LOC: C.ER 11:04 → C.9I 12:58 → C.9E 14:14 → C.6T 15:54
PROVIDERS: ADMIT Internal Medicine Nephrology; ATTEND Internal Medicine Nephrology
PROC: 02HV33Z Insertion of Infusion Device into Superior Vena Cava, Percutaneous Approach (ICD-10-PCS; principal; 2018-04-19)
DX: J18.9 Pneumonia, unspecified organism (principal); J96.22 Acute and chronic respiratory failure with hypercapnia; J96.21 Acute and chronic respiratory failure with hypoxia; J44.1 Chronic obstructive pulmonary disease with (acute) exacerbation; J44.0 Chronic obstructive pulmonary disease with (acute) lower respiratory infection; C32.9 Malignant neoplasm of larynx, unspecified; E11.9 Type 2 diabetes mellitus without complications; E78.00 Pure hypercholesterolemia, unspecified; J20.9 Acute bronchitis, unspecified; Z93.0 Tracheostomy status; I11.0 Hypertensive heart disease with heart failure; I50.9 Heart failure, unspecified; K21.9 Gastro-esophageal reflux disease without esophagitis; Z93.1 Gastrostomy status; J84.10 Pulmonary fibrosis, unspecified; L89.609 Pressure ulcer of unspecified heel, unspecified stage

== ENCOUNTER 2018-05-02 23:57 | Inpatient (IN) | payer MEDICARE ==
[2018-05-03] VITALS: BMI 12.5
[2018-05-03 00:13] LABS: VENOUS BLOOD GAS BASE EXCESS 15.4 mmol/L (0.0-2.0); VENOUS BLOOD GAS PCO2 103 mmHg (40-60); VENOUS BLOOD GAS PO2 33 mm/Hg (30-55); VENOUS BLOOD PH 7.27 (7.32-7.43)
[2018-05-03] MEDS ORDERED: Sodium Chloride 0.9% 1,000 ML IV ONE ×3 (00:15→05:51)
--- NOTE | 2018-05-03 00:15 | C.PDOC ---
History Of Present Illness medics were called for pt being apneic. The patient's trach was dislodged, and after being repositioned, pt was suctioned and bagged, returned to base line. Pt is able to follow commands. Time Seen by Provider: 05/03/18 00:01 Chief Complaint (Nursing): Respiratory Distress History Per: EMS History/Exam Limitations: clinical condition Onset/Duration Of Symptoms: Hrs Current Symptoms Are (Timing): Still Present Initiating Event: Other (dislodged trach) Exacerbating Factor(s): Exertion Current Respiratory Medications: See Home Med List Severity: Severe Pain Scale Rating Of: 9 Associated Symptoms: denies: Fever, Chills Reports Recently: Seen In ED, Treated By A Physician, Hospitalized Recent travel outside of the [place]: No Additional History Per: EMS, [facility] Past Medical History Reviewed: Historical Data, Nursing Documentation, Vital Signs Vital Signs: Last Vital Signs Temp 101.5 F H 05/03/18 00:06 Pulse 107 H 05/03/18 02:21 Resp 18 05/03/18 02:21 BP 110/65 05/03/18 02:21 Pulse Ox 100 05/03/18 02:21 - Medical History PMH: Asthma, CHF, COPD, HTN, Pneumonia (Lobar) Denies: Chronic Kidney Disease - [facility] Procedures ASSISTANCE WITH RESPIRATORY VENTILATION, <24 HRS, CPAP (11/24/16) DRAINAGE OF RIGHT PLEURAL CAVITY, PERC APPROACH, DIAGN (11/11/17) EXCISION OF LARYNX, ENDO, DIAGN (11/11/17) EXCISION OF SMALL INTESTINE, ENDO, DIAGN (11/11/17) INSERT INFUSION DEV IN R INT JUGULAR VEIN, PERC (11/24/16) INSERTION OF ENDOTRACHEAL AIRWAY INTO TRACHEA, VIA OPENING (11/11/17) INSERTION OF FEEDING DEVICE INTO STOMACH, PERC APPROACH (11/11/17) INSERTION OF INFUSION DEV INTO SUP VENA CAVA, PERC APPROACH (04/11/18) INSPECTION OF LARYNX, ENDO (11/11/17) RESPIRATORY VENTILATION, 24-96 CONSECUTIVE HOURS (01/15/18) RESPIRATORY VENTILATION, LESS THAN 24 CONSECUTIVE HOURS (11/24/16) Family History: States: No Known Family Hx - Social History Hx Alcohol Use: No Hx Substance Use: No - Immunization History Hx Tetanus Toxoid Vaccination: No Hx Influenza Vaccination: Yes (11/2017) Hx Pneumococcal Vaccination: Yes (11/2017) Review Of Systems Review Of Systems: ROS cannot be obtained secondary to pt's inabilty to answer questions. Physical Exam - Physical Exam Appears: In Acute Distress, Chronically Ill, Other (cachectic) Skin: Warm, Dry Head: Tenderness Eye(s): bilateral: Normal Inspection Oral Mucosa: Dry Neck: Trachea Midline, Supple, Other (trach in place) Chest: Symmetrical Cardiovascular: Rhythm Regular (tachy) Respiratory: Decreased Breath Sounds Gastrointestinal/Abdominal: Soft, No Tenderness, No Distention, No Guarding, Other (peg in place) Back: Normal Inspection Male Genital: Other (herrera in place) Extremity: No Swelling, Other (r medial maleollus pressure ulcer, left heel ulcer, right PICC line) Extremity: Bilateral: Atraumatic Pulses: Left Dorsalis Pedis: Normal, Right Dorsalis Pedis: Normal Neurological/Psych: Oriented x3 Gait: Unable To Assess ED Course And Treatment - Laboratory Results Result Diagrams: 05/03/18 00:15 05/03/18 01:03 ECG: Interpreted By Me, Viewed By Me ECG Rhythm: Sinus Tachycardia (125), Nonspecific Changes Pulse Ox Interpretation: Normal - Radiology CXR: Interpreted by Me, Viewed By Me Critical Care Time - Critical Care Note Total Time (in mins): 30 Documented critical care: time excludes all time spent performing seperately billable procedures. Disposition Discussed With : Yvonne Denton Comment: accepted the pt on his service and took over the care at 3 AM Doctor Will See Patient In The: Hospital Counseled Patient/Family Regarding: Studies Performed, Diagnosis - Disposition Disposition: HOSPITALIZED Disposition Time: 00:15 Condition: FAIR - Clinical Impression Clinical Impression: Respiratory distress, Tracheostomy complication, Renal insufficiency Decision To Admit - Pt Status Changed To: Hospital Disposition Of: Inpatient - Admit Certification Admit to Inpatient:: After my assessment, the patient will require hospitalization for at least two midnights. This is because of the severity of symptoms shown, intensity of services needed, and/or the medical risk in this patient being treated as an outpatient. - InPatient: Physician Admission Certification: I certify that this patient requires 2 or more midnights of care for the following reason:: After my assessment, the patient will require hospitalization for at least two midnights. This is because of the severity of symptoms shown, intensity of services needed, and/or the medical risk in this patient being treated as an outpatient. - . Bed Request Type: Telemetry Admitting Physician: Yvonne Dneton Patient Diagnosis: Respiratory distress, Tracheostomy complication, Renal insufficiency
[2018-05-03 00:40] LABS: BASO # 0.1 K/uL (0.0-0.2); BASO % 0.6 % (0.0-2.0); EOS # 0.7 K/uL (0.0-0.7); EOS % 7.8 % (0.0-4.0); HEMOGLOBIN 8.2 g/dL (12.0-18.0); LYMPH # 1.9 K/uL (1.0-4.3); LYMPH % 19.8 % (20.0-40.0); MEAN CELL VOLUME 84.3 fL (80.0-94.0); MEAN CORPUSCULAR HEMOGLOBIN 27.6 pg (27.0-31.0); MEAN CORPUSCULAR HGB CONC 32.8 g/dL (33.0-37.0); MEAN PLATELET VOLUME 7.6 fL (7.2-11.7); MONO # 0.6 K/uL (0.0-0.8); MONO % 6.5 % (0.0-10.0); NEUT # 6.3 K/uL (1.8-7.0); NEUT % 65.3 % (50.0-75.0); NRBC % 0.1 % (0.0-2.0); RBC 2.95 Mil/uL (4.40-5.90); RED CELL DISTRIBUTION WIDTH 17.4 % (11.5-14.5); WHITE BLOOD COUNT 9.6 K/uL (4.8-10.8)
[2018-05-03 00:48] LABS: INR 1.3; PROTHROMBIN TIME 14.3 SECONDS (9.7-12.2)
[2018-05-03 01:10] LABS: ARTERIAL BLOOD GAS HCO3 35.2 mmol/L (21-28); ARTERIAL BLOOD GAS PCO2 68 mm/Hg (35-45); ARTERIAL BLOOD GAS PH 7.39 (7.35-7.45); ARTERIAL BLOOD GAS PO2 445 mm/Hg (80-100); ARTERIAL BLOOD GAS TCO2 43.3 mmol/L (22-28)
[2018-05-03 01:37] VITALS: O2SAT 100
[2018-05-03] MEDS ORDERED: Piperacillin/Tazobact 3.375 gm 100 ML IVPB STA (01:59)
[2018-05-03 02:06] LABS: ALB/GLOB RATIO 0.8 (1.0-2.1); ALBUMIN 3.4 g/dL (3.5-5.0); ALT/SGPT 73 U/L (21-72); AST/SGOT 120 U/L (17-59); BLOOD UREA NITROGEN 42 mg/dL (9-20); CALCIUM 8.7 mg/dl (8.6-10.4); GFR AFRICAN-AMERICAN > 60; GFR NON-AFRICAN AMERICAN > 60
[2018-05-03 02:07] LABS: SQUAMOUS EPITHIAL 1 /hpf (0-5); URINE BACTERIA OCC (<OCC); URINE BILIRUBIN NEGATIVE (NEGATIVE); URINE BLOOD 1+ (NEGATIVE); URINE CLARITY Hazy (Clear); URINE COLOR Yellow (YELLOW); URINE GLUCOSE (UA) NORMAL (Normal); URINE HYALINE CAST 0-2 /lpf (0-2); URINE LEUKOCYTE ESTERASE 3+ Leu/uL (Negative); URINE PROTEIN 2+ mg/dL (NEGATIVE); URINE UROBILINOGEN NORMAL mg/dL (0.2-1.0)
[2018-05-03] MEDS ORDERED: Piperacillin/Tazobact 3.375 gm 100 ML IVPB ONE (02:12)
[2018-05-03] MEDS ORDERED: Vancomycin 1 gm/NS 200 ml 1 GM/200 ML BAG IVPB STA (02:54)
[2018-05-03 06:21] LABS: ABG ALLEN TEST POS; ARTERIAL BLOOD GAS HCO3 34.8 mmol/L (21-28); ARTERIAL BLOOD GAS PCO2 76 mm/Hg (35-45); ARTERIAL BLOOD GAS PH 7.35 (7.35-7.45); ARTERIAL BLOOD GAS PO2 78 mm/Hg (80-100); ARTERIAL BLOOD GAS TCO2 44.3 mmol/L (22-28)
[2018-05-03] MEDS ORDERED: Vitamins A & D Oint UD Foilpak TOP PRN (08:39)
[2018-05-03] MEDS ORDERED: Acetaminophen 650mg/20.3ml solution UD GT PRN (08:39)
[2018-05-03] MEDS ORDERED: Alum-Mag Hydrox-Simethicone Susp (30 mL) GT PRN (08:39)
[2018-05-03] MEDS ORDERED: Tiotropium 18 mcg Cap For Inhalation INH SCH (09:00)
[2018-05-03] MEDS ORDERED: Multiple Vitamins Oral Solution GT SCH (10:00)
[2018-05-03] MEDS ORDERED: Enoxaparin 40 mg Syringe SC SCH (10:00)
[2018-05-03] MEDS ORDERED: Saccharomyces Boulardi 250 mg Cap GT SCH (10:00)
--- NOTE | 2018-05-03 10:35 | RAD ---
PROCEDURE: CHEST RADIOGRAPH, 1 VIEW HISTORY: SOB COMPARISON: Comparison chest 04/16/2018 FINDINGS: In situ tracheostomy tube in good position. Interval placement of right-sided PICC line with tip apparently in the left brachiocephalic vein. This should probably be repositioned. LUNGS: Hyperinflation with coarsened interstitium ; findings may represent COPD or emphysema. . Previously noted patchy infiltrate left upper lobe slightly improved. . Findings also suggest mild biapical pleural scarring PLEURA: No pneumothorax or pleural fluid seen. CARDIOVASCULAR: Normal. OSSEOUS STRUCTURES: No significant abnormalities. VISUALIZED UPPER ABDOMEN: Normal. OTHER FINDINGS: None. IMPRESSION: Hyperinflation with coarsened interstitium ; findings may represent COPD or emphysema. . Previously noted patchy infiltrate left upper lobe slightly improved. . Findings also suggest mild biapical pleural scarring Interval placement of right-sided PICC line with tip apparently in the left brachiocephalic vein. This should probably be repositioned. Report placed in PA review folder for followup
[2018-05-03] MEDS: Albuterol-Ipratrop 3 mg / 0.5 (3 ml) UD INH SCH ×2 (12:10→15:43)
[2018-05-03] MEDS ORDERED: Piperacill/Tazo 2.25gm in Dex 2.25 GM/50 ML BAG IVPB SCH (13:30)
[2018-05-03] MEDS ORDERED: Vancomycin 1 gm/NS 200 ml 1 GM/200 ML BAG IVPB SCH (14:30)
[2018-05-03 16:12] VITALS: RESP 18; TEMP 97.9
--- NOTE | 2018-05-03 16:51 | CP.PCM.PN ---
Subjective - Date & Time of Evaluation Date of Evaluation: 05/03/18 Time of Evaluation: 16:51 - Subjective Subjective: Awake, responsive, no acute distress noted. Objective - Vital Signs/Intake and Output Vital Signs (last 24 hours): Temp Pulse Resp BP Pulse Ox 97.9 F 90 18 79/52 L 100 05/03/18 15:30 05/03/18 15:47 05/03/18 15:30 05/03/18 15:30 05/03/18 08:43 Intake and Output: 05/03/18 05/03/18 06:59 18:59 Intake Total 2350 Output Total 50 Balance 2300 - Medications Medications: Current Medications Acetaminophen (Tylenol 650mg/20.3ml Solution Ud) 650 mg GT Q4 PRN PRN Reason: Pain, moderate (4-7) Al Hydrox/Mg Hydrox/Simethicone (Maalox Plus 30 Ml) 30 ml GT Q4H PRN PRN Reason: Heartburn Albuterol/Ipratropium (Duoneb 3 Mg/0.5 Mg (3 Ml) Ud) 3 ml INH RQ4 [facility] Last Admin: 05/03/18 15:43 Dose: 3 ml Ascorbic Acid (Vitamin C 250 Mg Tab) 250 mg GT DAILY [facility] Last Admin: 05/03/18 10:46 Dose: 250 mg Aspirin (Aspirin Chewable) 81 mg GT DAILY [facility] Last Admin: 05/03/18 09:59 Dose: 81 mg Diltiazem HCl (Cardizem) 30 mg GT Q6 [facility] Last Admin: 05/03/18 12:11 Dose: 30 mg Enoxaparin Sodium (Lovenox) 40 mg SC DAILY [facility] Last Admin: 05/03/18 09:59 Dose: 40 mg Folic Acid (Folic Acid) 1 mg GT DAILY [facility] Last Admin: 05/03/18 09:59 Dose: 1 mg Furosemide (Lasix) 40 mg PEG DAILY [facility] Last Admin: 05/03/18 09:58 Dose: 40 mg Sodium Chloride (Sodium Chloride 0.9%) 1,000 mls @ 80 mls/hr IV .[id number] ONE Stop: 05/03/18 18:20 Last Admin: 05/03/18 07:05 Dose: 80 mls/hr Piperacillin Sod/Tazobactam Sod (Zosyn 2.25 Gm Iv Premix) 2.25 gm in 50 mls @ 100 mls/hr IVPB Q6H [facility] PRN Reason: Protocol Last Admin: 05/03/18 14:30 Dose: 100 mls/hr Vancomycin/Sodium Chloride (Vancomycin 1 Gm/Ns 200 Ml) 1 gm in 200 mls @ 133 mls/hr IVPB Q24H [facility] PRN Reason: Protocol Stop: 05/08/18 14:31 Last Admin: 05/03/18 14:33 Dose: 133 mls/hr Magnesium Hydroxide (Milk Of Magnesia) 30 ml GT HS PRN PRN Reason: Constipation Multivitamins/Vitamin C (Multi-Delyn Liquid) 5 ml GT DAILY [facility] Last Admin: 05/03/18 10:46 Dose: 5 ml Saccharomyces Boulardii (Florastor) 250 mg GT DAILY [facility] Last Admin: 05/03/18 09:59 Dose: 250 mg Tiotropium [place] (Spiriva Inhalation Handihaler Device) 1 inhaler INH DAILY [facility] Tiotropium [place] (Spiriva) 18 mcg INH RQ24 [facility] Last Admin: 05/03/18 15:44 Dose: Not Given Vitamin A (Vitamin A & D Oint Ud Foilpak) 0.5 ea TOP BID PRN PRN Reason: Dry skin Zinc Sulfate (Zinc Sulfate 220 Mg Cap) 220 mg GT DAILY [facility] Last Admin: 05/03/18 09:59 Dose: 220 mg - Labs Labs: 05/03/18 00:15 05/03/18 01:03 PT 14.3 SECONDS (9.7-12.2) H 05/03/18 00:15 INR 1.3 05/03/18 00:15 APTT 45 SECONDS (21-34) H 05/03/18 00:15 Assessment and Plan - Assessment and Plan (Free Text) Assessment: Patient admitted with trach dislodgement, seen by DR Mushtaq Denton, no change in the general status, plan to send back to [facility] and complete the antibiotic coarse as ordered. PICC line intact. neonatal social worker to arrang transportation today.
--- NOTE | 2018-05-03 17:47 | CP.PCM.CON ---
History of Present Illness - History of Present Illness History of Present Illness: INFECTIOUS DISEASE CONSULT; HPI; 72-year-old male patient with history of respiratory failure, chronic trach, COPD, CHF, hypertension history of pneumonia in the past who was brought in by medics as patient became apneic secondary to his trach dislodgment. Patient was suctioned back and trach was repositioned patient returned to baseline. Patient presently has tracheostomy in place and able to follow commands. Patient denies any further choking or complaining of difficulty breathing. Patient is a group home resident. Patient was empirically started on IV vancomycin 1 g once a day and IV Zosyn 2.25 g IV piggyback every 6 hourly by the private M.D. Infectious disease consultation requested by PMD for further evaluation. As per RN patient has no history off fever or chills. PMH: Asthma, CHF, COPD, HTN, Pneumonia (Lobar) Denies: Chronic Kidney Disease - [facility] Procedures ASSISTANCE WITH RESPIRATORY VENTILATION, <24 HRS, CPAP (11/24/16) DRAINAGE OF RIGHT PLEURAL CAVITY, PERC APPROACH, DIAGN (11/11/17) EXCISION OF LARYNX, ENDO, DIAGN (11/11/17) EXCISION OF SMALL INTESTINE, ENDO, DIAGN (11/11/17) INSERT INFUSION DEV IN R INT JUGULAR VEIN, PERC (11/24/16) INSERTION OF ENDOTRACHEAL AIRWAY INTO TRACHEA, VIA OPENING (11/11/17) INSERTION OF FEEDING DEVICE INTO STOMACH, PERC APPROACH (11/11/17) INSERTION OF INFUSION DEV INTO SUP VENA CAVA, PERC APPROACH (04/11/18) INSPECTION OF LARYNX, ENDO (11/11/17) RESPIRATORY VENTILATION, 24-96 CONSECUTIVE HOURS (01/15/18) RESPIRATORY VENTILATION, LESS THAN 24 CONSECUTIVE HOURS (11/24/16) Family History: States: No Known Family Hx - Social History Hx Alcohol Use: No Hx Substance Use: No - Immunization History Hx Tetanus Toxoid Vaccination: No Hx Influenza Vaccination: Yes (11/2017) Hx Pneumococcal Vaccination: Yes (11/2017) ALLERGY; NKA. Review of Systems - Review of Systems Systems not reviewed;Unavailable: Intubated (PATIENT HAS A TRACHEOSTOMY IN PLACE.) All systems: reviewed and no additional remarkable complaints except ( PER HPI.) Past Patient History - Past Medical History & Family History Past Medical History?: Yes - Past Social History Smoking Status: Former Smoker - CARDIAC Hx Congestive Heart Failure: Yes Hx Hypertension: Yes - PULMONARY Hx Asthma: Yes Hx Chronic Obstructive Pulmonary Disease (COPD): Yes Hx Pneumonia: Yes (Lobar) - NEUROLOGICAL Hx Neurological Disorder: Yes Hx Dizziness: Yes - HEENT Hx HEENT Problems: No - RENAL Hx Chronic Kidney Disease: No - ENDOCRINE/METABOLIC Hx Diabetes Mellitus Type 2: Yes - HEMATOLOGICAL/ONCOLOGICAL Hx Blood Disorders: No Other/Comment: sepsis - INTEGUMENTARY Hx Dermatological Problems: No - MUSCULOSKELETAL/RHEUMATOLOGICAL Hx Falls: Yes - GASTROINTESTINAL Hx Gastrointestinal Disorders: No Hx Gastroesophageal Reflux: Yes - GENITOURINARY/GYNECOLOGICAL Hx Genitourinary Disorders: No Other/Comment: Carcinoma in situ of layrnx - PSYCHIATRIC Hx Substance Use: No - SURGICAL HISTORY Hx Surgeries: Yes Other/Comment: Gastrostomy. tracheostomy - ANESTHESIA Hx Anesthesia: Yes Meds Allergies/Adverse Reactions: Allergies Allergy/AdvReac Type Severity Reaction Status Date / Time No Known Allergies Allergy Verified 05/03/18 00:00 - Medications Medications: Current Medications Acetaminophen (Tylenol 650mg/20.3ml Solution Ud) 650 mg GT Q4 PRN PRN Reason: Pain, moderate (4-7) Al Hydrox/Mg Hydrox/Simethicone (Maalox Plus 30 Ml) 30 ml GT Q4H PRN PRN Reason: Heartburn Albuterol/Ipratropium (Duoneb 3 Mg/0.5 Mg (3 Ml) Ud) 3 ml INH RQ4 [facility] Last Admin: 05/03/18 15:43 Dose: 3 ml Ascorbic Acid (Vitamin C 250 Mg Tab) 250 mg GT DAILY [facility] Last Admin: 05/03/18 10:46 Dose: 250 mg Aspirin (Aspirin Chewable) 81 mg GT DAILY [facility] Last Admin: 05/03/18 09:59 Dose: 81 mg Diltiazem HCl (Cardizem) 30 mg GT Q6 [facility] Last Admin: 05/03/18 12:11 Dose: 30 mg Enoxaparin Sodium (Lovenox) 40 mg SC DAILY [facility] Last Admin: 05/03/18 09:59 Dose: 40 mg Folic Acid (Folic Acid) 1 mg GT DAILY [facility] Last Admin: 05/03/18 09:59 Dose: 1 mg Furosemide (Lasix) 40 mg PEG DAILY [facility] Last Admin: 05/03/18 09:58 Dose: 40 mg Sodium Chloride (Sodium Chloride 0.9%) 1,000 mls @ 80 mls/hr IV .[id number] ONE Stop: 05/03/18 18:20 Last Admin: 05/03/18 07:05 Dose: 80 mls/hr Piperacillin Sod/Tazobactam Sod (Zosyn 2.25 Gm Iv Premix) 2.25 gm in 50 mls @ 100 mls/hr IVPB Q6H JUANA PRN Reason: Protocol Last Admin: 05/03/18 14:30 Dose: 100 mls/hr Vancomycin/Sodium Chloride (Vancomycin 1 Gm/Ns 200 Ml) 1 gm in 200 mls @ 133 mls/hr IVPB Q24H JUANA PRN Reason: Protocol Stop: 05/08/18 14:31 Last Admin: 05/03/18 14:33 Dose: 133 mls/hr Magnesium Hydroxide (Milk Of Magnesia) 30 ml GT HS PRN PRN Reason: Constipation Multivitamins/Vitamin C (Multi-Delyn Liquid) 5 ml GT DAILY [facility] Last Admin: 05/03/18 10:46 Dose: 5 ml Saccharomyces Boulardii (Florastor) 250 mg GT DAILY [facility] Last Admin: 05/03/18 09:59 Dose: 250 mg Tiotropium [place] (Spiriva Inhalation Handihaler Device) 1 inhaler INH DAILY [facility] Tiotropium [place] (Spiriva) 18 mcg INH RQ24 [facility] Last Admin: 05/03/18 15:44 Dose: Not Given Vitamin A (Vitamin A & D Oint Ud Foilpak) 0.5 ea TOP BID PRN PRN Reason: Dry skin Zinc Sulfate (Zinc Sulfate 220 Mg Cap) 220 mg GT DAILY [facility] Last Admin: 05/03/18 09:59 Dose: 220 mg Physical Exam - Constitutional Appears: No Acute Distress, Cachectic, Chronically Ill - Eye Exam Eye Exam: EOMI, PERRL - ENT Exam ENT Exam: Mucous Membranes Moist, Normal Oropharynx - Neck Exam Neck exam: Positive for: Normal Inspection - Respiratory Exam Respiratory Exam: NORMAL BREATHING PATTERN (FEW SCATTERED RHONCHI.) - Cardiovascular Exam Cardiovascular Exam: REGULAR RHYTHM, +S1, +S2 - GI/Abdominal Exam GI & Abdominal Exam: Normal Bowel Sounds (PEG IN PLACE.), Soft - Extremities Exam Extremities exam: Positive for: pedal pulses present. Negative for: calf tenderness, pedal edema - Neurological Exam Neurological exam: Alert, CN II-XII Intact, Oriented x3 - Psychiatric Exam Psychiatric exam: Normal Affect - Skin Skin Exam: Normal Color, Warm Results - Vital Signs Recent Vital Signs: Last Vital Signs Temp 97.9 F 05/03/18 15:30 Pulse 90 05/03/18 15:47 Resp 18 05/03/18 15:30 BP 79/52 L 05/03/18 15:30 Pulse Ox 100 05/03/18 08:43 - Labs Result Diagrams: 05/03/18 00:15 05/03/18 01:03 Labs: Laboratory Results - last 24 hr 05/03/18 05/03/18 05/03/18 00:05 00:09 00:15 WBC 9.6 D RBC 2.95 L Hgb 8.2 L Hct 24.9 L MCV 84.3 MCH 27.6 MCHC 32.8 L RDW 17.4 H Plt Count 474 H D MPV 7.6 Neut % (Auto) 65.3 Lymph % (Auto) 19.8 L [place] % (Auto) 6.5 Eos % (Auto) 7.8 H Baso % (Auto) 0.6 Neut # (Auto) 6.3 Lymph # (Auto) 1.9 [place] # (Auto) 0.6 Eos # (Auto) 0.7 Baso # (Auto) 0.1 PT INR APTT Puncture Site pCO2 pO2 33 HCO3 ABG pH ABG Total CO2 ABG O2 Saturation ABG Base Excess Suraj Test ABG Potassium VBG pH 7.27 L VBG pCO2 103 H* VBG HCO3 35.8 VBG Total CO2 50.5 H VBG O2 Sat (Calc) 54.3 VBG Base Excess 15.4 H VBG Potassium 3.9 A-a O2 Difference Respiratory Index Sodium 140.0 Chloride 95.0 L Glucose 109 Lactate 0.9 Vent Mode Mechanical Rate FiO2 Tidal Volume PEEP Crit Value Called To Dr lane Crit Value Called By Tono foster/rt Crit Value Read Back Y Blood Gas Notified Time 15 Potassium Carbon Dioxide Anion Gap BUN Creatinine Est GFR ( Amer) Est GFR (Non-Af Amer) POC Glucose (mg/dL) 125 H Random Glucose Lactic Acid Calcium Magnesium Total Bilirubin AST ALT Alkaline Phosphatase Troponin I Total Protein Albumin Globulin Albumin/Globulin Ratio TSH 3rd Generation Arterial Blood Potassium Venous Blood Potassium 3.9 Urine Color Urine Clarity Urine pH Ur Specific [place] Urine Protein Urine Glucose (UA) Urine Ketones Urine Blood Urine Nitrate Urine Bilirubin Urine Urobilinogen Ur Leukocyte Esterase Urine WBC (Auto) Urine RBC (Auto) Ur Squamous Epith Cells Urine Bacteria Hyaline Casts Urine Yeast (Budding) Blood Type Antibody Screen 05/03/18 05/03/18 05/03/18 00:15 01:03 01:05 WBC RBC Hgb Hct MCV MCH MCHC RDW Plt Count MPV Neut % (Auto) Lymph % (Auto) [place] % (Auto) Eos % (Auto) Baso % (Auto) Neut # (Auto) Lymph # (Auto) [place] # (Auto) Eos # (Auto) Baso # (Auto) PT 14.3 H INR 1.3 APTT 45 H Puncture Site Lb pCO2 68 H pO2 445 H HCO3 35.2 H ABG pH 7.39 ABG Total CO2 43.3 H ABG O2 Saturation 100.0 H ABG Base Excess 13.1 H Suraj Test Na ABG Potassium 3.5 L VBG pH VBG pCO2 VBG HCO3 VBG Total CO2 VBG O2 Sat (Calc) VBG Base Excess VBG Potassium A-a O2 Difference 183.0 Respiratory Index 0.4 Sodium 143 139.0 Chloride 91 L 101.0 Glucose 93 Lactate 0.9 Vent Mode Prvc Mechanical Rate 20 FiO2 100.0 Tidal Volume 400 PEEP 5 Crit Value Called To Crit Value Called By Crit Value Read Back Blood Gas Notified Time Potassium 4.2 Carbon Dioxide 43 H* Anion Gap 13 BUN 42 H Creatinine 0.8 Est GFR ( Amer) > 60 Est GFR (Non-Af Amer) > 60 POC Glucose (mg/dL) Random Glucose 115 H Lactic Acid Calcium 8.7 Magnesium 2.0 Total Bilirubin 0.5 AST 120 H D ALT 73 H D Alkaline Phosphatase 121 Troponin I 0.0380 Total Protein 7.9 Albumin 3.4 L Globulin 4.5 H Albumin/Globulin Ratio 0.8 L TSH 3rd Generation 1.34 Arterial Blood Potassium 3.5 L Venous Blood Potassium Urine Color Urine Clarity Urine pH Ur Specific [place] Urine Protein Urine Glucose (UA) Urine Ketones Urine Blood Urine Nitrate Urine Bilirubin Urine Urobilinogen Ur Leukocyte Esterase Urine WBC (Auto) Urine RBC (Auto) Ur Squamous Epith Cells Urine Bacteria Hyaline Casts Urine Yeast (Budding) Blood Type Antibody Screen 05/03/18 05/03/18 05/03/18 01:59 03:39 06:01 WBC RBC Hgb Hct MCV MCH MCHC RDW Plt Count MPV Neut % (Auto) Lymph % (Auto) [place] % (Auto) Eos % (Auto) Baso % (Auto) Neut # (Auto) Lymph # (Auto) [place] # (Auto) Eos # (Auto) Baso # (Auto) PT INR APTT Puncture Site R rad pCO2 76 H* pO2 78 L HCO3 34.8 H ABG pH 7.35 ABG Total CO2 44.3 H ABG O2 Saturation 97.0 ABG Base Excess 12.8 H Suraj Test Pos ABG Potassium 3.3 L VBG pH VBG pCO2 VBG HCO3 VBG Total CO2 VBG O2 Sat (Calc) VBG Base Excess VBG Potassium A-a O2 Difference 184.0 Respiratory Index 2.4 Sodium 143.0 Chloride 105.0 Glucose 85 Lactate 0.5 L Vent Mode Mechanical Rate FiO2 50.0 Tidal Volume PEEP Crit Value Called To Yisel henderson rn Crit Value Called By Sofía philip rt Crit Value Read Back Y Blood Gas Notified Time 624 Potassium Carbon Dioxide Anion Gap BUN Creatinine Est GFR ( Amer) Est GFR (Non-Af Amer) POC Glucose (mg/dL) Random Glucose Lactic Acid 0.7 Calcium Magnesium Total Bilirubin AST ALT Alkaline Phosphatase Troponin I Total Protein Albumin Globulin Albumin/Globulin Ratio TSH 3rd Generation Arterial Blood Potassium 3.3 L Venous Blood Potassium Urine Color Yellow Urine Clarity Hazy Urine pH 6.0 Ur Specific [place] 1.016 Urine Protein 2+ H Urine Glucose (UA) Normal Urine Ketones Negative Urine Blood 1+ H Urine Nitrate Negative Urine Bilirubin Negative Urine Urobilinogen Normal Ur Leukocyte Esterase 3+ H Urine WBC (Auto) 71 H Urine RBC (Auto) 40 H Ur Squamous Epith Cells 1 Urine Bacteria Occ H Hyaline Casts 0-2 Urine Yeast (Budding) Mod H Blood Type Antibody Screen 05/03/18 07:12 WBC RBC Hgb Hct MCV MCH MCHC RDW Plt Count MPV Neut % (Auto) Lymph % (Auto) [place] % (Auto) Eos % (Auto) Baso % (Auto) Neut # (Auto) Lymph # (Auto) [place] # (Auto) Eos # (Auto) Baso # (Auto) PT INR APTT Puncture Site pCO2 pO2 HCO3 ABG pH ABG Total CO2 ABG O2 Saturation ABG Base Excess Suraj Test ABG Potassium VBG pH VBG pCO2 VBG HCO3 VBG Total CO2 VBG O2 Sat (Calc) VBG Base Excess VBG Potassium A-a O2 Difference Respiratory Index Sodium Chloride Glucose Lactate Vent Mode Mechanical Rate FiO2 Tidal Volume PEEP Crit Value Called To Crit Value Called By Crit Value Read Back Blood Gas Notified Time Potassium Carbon Dioxide Anion Gap BUN Creatinine Est GFR ( Amer) Est GFR (Non-Af Amer) POC Glucose (mg/dL) Random Glucose Lactic Acid Calcium Magnesium Total Bilirubin AST ALT Alkaline Phosphatase Troponin I Total Protein Albumin Globulin Albumin/Globulin Ratio TSH 3rd Generation Arterial Blood Potassium Venous Blood Potassium Urine Color Urine Clarity Urine pH Ur Specific [place] Urine Protein Urine Glucose (UA) Urine Ketones Urine Blood Urine Nitrate Urine Bilirubin Urine Urobilinogen Ur Leukocyte Esterase Urine WBC (Auto) Urine RBC (Auto) Ur Squamous Epith Cells Urine Bacteria Hyaline Casts Urine Yeast (Budding) Blood Type O POSITIVE Antibody Screen Negative - Imaging and Cardiology Chest x-ray Status: Report reviewed by me (hyperinflation with coarse interstitium consistent with COPD/emphysema. Left upper lobe infiltrate slightly improved. Right-sided PICC line.) Assessment & Plan (1) Dyspnea Status: Acute (2) Pneumonia Status: Acute (3) COPD exacerbation Status: Acute (4) Laryngeal cancer Status: Chronic (5) Hx of tracheostomy Assessment and Plan: tracheostomy dislodged .Repositioned and reinserted. Patient presently breathing better and stable. Status: Acute - Assessment and Plan (Free Text) Plan: PANCULTURE. SPUTUM gRAM STAIN AND CULTURE. PULMONARY TOILET AND SUCTION WHEN NECESSARY. CONTINUE PRESENT iv ANTIBIOTICS ORDERED. MONITOR RENAL FUNCTIONS CLOSELY. CASE DISCUSSED WITH THE STAFF.
[2018-05-03 18:01] VITALS: BP 110/62
--- NOTE | 2018-05-03 18:45 | CP.PCM.HP ---
Past Patient History - Past Medical History & Family History Past Medical History?: Yes - Past Social History Smoking Status: Former Smoker - CARDIAC Hx Congestive Heart Failure: Yes Hx Hypertension: Yes - PULMONARY Hx Asthma: Yes Hx Chronic Obstructive Pulmonary Disease (COPD): Yes Hx Pneumonia: Yes (Lobar) - NEUROLOGICAL Hx Neurological Disorder: Yes Hx Dizziness: Yes - HEENT Hx HEENT Problems: No - RENAL Hx Chronic Kidney Disease: No - ENDOCRINE/METABOLIC Hx Diabetes Mellitus Type 2: Yes - HEMATOLOGICAL/ONCOLOGICAL Hx Blood Disorders: No Other/Comment: sepsis - INTEGUMENTARY Hx Dermatological Problems: No - MUSCULOSKELETAL/RHEUMATOLOGICAL Hx Falls: Yes - GASTROINTESTINAL Hx Gastrointestinal Disorders: No Hx Gastroesophageal Reflux: Yes - GENITOURINARY/GYNECOLOGICAL Hx Genitourinary Disorders: No Other/Comment: Carcinoma in situ of layrnx - PSYCHIATRIC Hx Substance Use: No - SURGICAL HISTORY Hx Surgeries: Yes Other/Comment: Gastrostomy. tracheostomy - ANESTHESIA Hx Anesthesia: Yes Meds Allergies/Adverse Reactions: Allergies Allergy/AdvReac Type Severity Reaction Status Date / Time No Known Allergies Allergy Verified 05/03/18 00:00 Physical Exam - Constitutional Appears: Well - Head Exam Head Exam: ATRAUMATIC, NORMAL INSPECTION, NORMOCEPHALIC - Eye Exam Eye Exam: EOMI, Normal appearance, PERRL Pupil Exam: NORMAL ACCOMODATION, PERRL - ENT Exam ENT Exam: Mucous Membranes Moist, Normal Exam - Neck Exam Neck exam: Positive for: Normal Inspection - Respiratory Exam Respiratory Exam: Decreased Breath Sounds - Cardiovascular Exam Cardiovascular Exam: REGULAR RHYTHM, +S1, +S2 - GI/Abdominal Exam GI & Abdominal Exam: Diminished Bowel Sounds, Soft - Rectal Exam Rectal Exam: Deferred Results - Vital Signs Recent Vital Signs: Last Vital Signs Temp 97.9 F 05/03/18 15:30 Pulse 90 05/03/18 15:47 Resp 18 05/03/18 15:30 BP 110/62 05/03/18 18:00 Pulse Ox 100 05/03/18 08:43 - Labs Result Diagrams: 05/03/18 00:15 05/03/18 01:03 Labs: Laboratory Results - last 24 hr 05/03/18 05/03/18 05/03/18 00:05 00:09 00:15 WBC 9.6 D RBC 2.95 L Hgb 8.2 L Hct 24.9 L MCV 84.3 MCH 27.6 MCHC 32.8 L RDW 17.4 H Plt Count 474 H D MPV 7.6 Neut % (Auto) 65.3 Lymph % (Auto) 19.8 L [place] % (Auto) 6.5 Eos % (Auto) 7.8 H Baso % (Auto) 0.6 Neut # (Auto) 6.3 Lymph # (Auto) 1.9 [place] # (Auto) 0.6 Eos # (Auto) 0.7 Baso # (Auto) 0.1 PT INR APTT Puncture Site pCO2 pO2 33 HCO3 ABG pH ABG Total CO2 ABG O2 Saturation ABG Base Excess Suraj Test ABG Potassium VBG pH 7.27 L VBG pCO2 103 H* VBG HCO3 35.8 VBG Total CO2 50.5 H VBG O2 Sat (Calc) 54.3 VBG Base Excess 15.4 H VBG Potassium 3.9 A-a O2 Difference Respiratory Index Sodium 140.0 Chloride 95.0 L Glucose 109 Lactate 0.9 Vent Mode Mechanical Rate FiO2 Tidal Volume PEEP Crit Value Called To Dr lane Crit Value Called By Tono foster/rt Crit Value Read Back Y Blood Gas Notified Time 15 Potassium Carbon Dioxide Anion Gap BUN Creatinine Est GFR ( Amer) Est GFR (Non-Af Amer) POC Glucose (mg/dL) 125 H Random Glucose Lactic Acid Calcium Magnesium Total Bilirubin AST ALT Alkaline Phosphatase Troponin I Total Protein Albumin Globulin Albumin/Globulin Ratio TSH 3rd Generation Arterial Blood Potassium Venous Blood Potassium 3.9 Urine Color Urine Clarity Urine pH Ur Specific [place] Urine Protein Urine Glucose (UA) Urine Ketones Urine Blood Urine Nitrate Urine Bilirubin Urine Urobilinogen Ur Leukocyte Esterase Urine WBC (Auto) Urine RBC (Auto) Ur Squamous Epith Cells Urine Bacteria Hyaline Casts Urine Yeast (Budding) Blood Type Antibody Screen 05/03/18 05/03/18 05/03/18 00:15 01:03 01:05 WBC RBC Hgb Hct MCV MCH MCHC RDW Plt Count MPV Neut % (Auto) Lymph % (Auto) [place] % (Auto) Eos % (Auto) Baso % (Auto) Neut # (Auto) Lymph # (Auto) [place] # (Auto) Eos # (Auto) Baso # (Auto) PT 14.3 H INR 1.3 APTT 45 H Puncture Site Lb pCO2 68 H pO2 445 H HCO3 35.2 H ABG pH 7.39 ABG Total CO2 43.3 H ABG O2 Saturation 100.0 H ABG Base Excess 13.1 H Suraj Test Na ABG Potassium 3.5 L VBG pH VBG pCO2 VBG HCO3 VBG Total CO2 VBG O2 Sat (Calc) VBG Base Excess VBG Potassium A-a O2 Difference 183.0 Respiratory Index 0.4 Sodium 143 139.0 Chloride 91 L 101.0 Glucose 93 Lactate 0.9 Vent Mode Prvc Mechanical Rate 20 FiO2 100.0 Tidal Volume 400 PEEP 5 Crit Value Called To Crit Value Called By Crit Value Read Back Blood Gas Notified Time Potassium 4.2 Carbon Dioxide 43 H* Anion Gap 13 BUN 42 H Creatinine 0.8 Est GFR ( Amer) > 60 Est GFR (Non-Af Amer) > 60 POC Glucose (mg/dL) Random Glucose 115 H Lactic Acid Calcium 8.7 Magnesium 2.0 Total Bilirubin 0.5 AST 120 H D ALT 73 H D Alkaline Phosphatase 121 Troponin I 0.0380 Total Protein 7.9 Albumin 3.4 L Globulin 4.5 H Albumin/Globulin Ratio 0.8 L TSH 3rd Generation 1.34 Arterial Blood Potassium 3.5 L Venous Blood Potassium Urine Color Urine Clarity Urine pH Ur Specific [place] Urine Protein Urine Glucose (UA) Urine Ketones Urine Blood Urine Nitrate Urine Bilirubin Urine Urobilinogen Ur Leukocyte Esterase Urine WBC (Auto) Urine RBC (Auto) Ur Squamous Epith Cells Urine Bacteria Hyaline Casts Urine Yeast (Budding) Blood Type Antibody Screen 05/03/18 05/03/18 05/03/18 01:59 03:39 06:01 WBC RBC Hgb Hct MCV MCH MCHC RDW Plt Count MPV Neut % (Auto) Lymph % (Auto) [place] % (Auto) Eos % (Auto) Baso % (Auto) Neut # (Auto) Lymph # (Auto) [place] # (Auto) Eos # (Auto) Baso # (Auto) PT INR APTT Puncture Site R rad pCO2 76 H* pO2 78 L HCO3 34.8 H ABG pH 7.35 ABG Total CO2 44.3 H ABG O2 Saturation 97.0 ABG Base Excess 12.8 H Suraj Test Pos ABG Potassium 3.3 L VBG pH VBG pCO2 VBG HCO3 VBG Total CO2 VBG O2 Sat (Calc) VBG Base Excess VBG Potassium A-a O2 Difference 184.0 Respiratory Index 2.4 Sodium 143.0 Chloride 105.0 Glucose 85 Lactate 0.5 L Vent Mode Mechanical Rate FiO2 50.0 Tidal Volume PEEP Crit Value Called To Yiesl henderson rn Crit Value Called By Sofía philip rt Crit Value Read Back Y Blood Gas Notified Time 624 Potassium Carbon Dioxide Anion Gap BUN Creatinine Est GFR ( Amer) Est GFR (Non-Af Amer) POC Glucose (mg/dL) Random Glucose Lactic Acid 0.7 Calcium Magnesium Total Bilirubin AST ALT Alkaline Phosphatase Troponin I Total Protein Albumin Globulin Albumin/Globulin Ratio TSH 3rd Generation Arterial Blood Potassium 3.3 L Venous Blood Potassium Urine Color Yellow Urine Clarity Hazy Urine pH 6.0 Ur Specific [place] 1.016 Urine Protein 2+ H Urine Glucose (UA) Normal Urine Ketones Negative Urine Blood 1+ H Urine Nitrate Negative Urine Bilirubin Negative Urine Urobilinogen Normal Ur Leukocyte Esterase 3+ H Urine WBC (Auto) 71 H Urine RBC (Auto) 40 H Ur Squamous Epith Cells 1 Urine Bacteria Occ H Hyaline Casts 0-2 Urine Yeast (Budding) Mod H Blood Type Antibody Screen 05/03/18 07:12 WBC RBC Hgb Hct MCV MCH MCHC RDW Plt Count MPV Neut % (Auto) Lymph % (Auto) [place] % (Auto) Eos % (Auto) Baso % (Auto) Neut # (Auto) Lymph # (Auto) [place] # (Auto) Eos # (Auto) Baso # (Auto) PT INR APTT Puncture Site pCO2 pO2 HCO3 ABG pH ABG Total CO2 ABG O2 Saturation ABG Base Excess Suraj Test ABG Potassium VBG pH VBG pCO2 VBG HCO3 VBG Total CO2 VBG O2 Sat (Calc) VBG Base Excess VBG Potassium A-a O2 Difference Respiratory Index Sodium Chloride Glucose Lactate Vent Mode Mechanical Rate FiO2 Tidal Volume PEEP Crit Value Called To Crit Value Called By Crit Value Read Back Blood Gas Notified Time Potassium Carbon Dioxide Anion Gap BUN Creatinine Est GFR ( Amer) Est GFR (Non-Af Amer) POC Glucose (mg/dL) Random Glucose Lactic Acid Calcium Magnesium Total Bilirubin AST ALT Alkaline Phosphatase Troponin I Total Protein Albumin Globulin Albumin/Globulin Ratio TSH 3rd Generation Arterial Blood Potassium Venous Blood Potassium Urine Color Urine Clarity Urine pH Ur Specific [place] Urine Protein Urine Glucose (UA) Urine Ketones Urine Blood Urine Nitrate Urine Bilirubin Urine Urobilinogen Ur Leukocyte Esterase Urine WBC (Auto) Urine RBC (Auto) Ur Squamous Epith Cells Urine Bacteria Hyaline Casts Urine Yeast (Budding) Blood Type O POSITIVE Antibody Screen Negative
--- NOTE | 2018-05-03 19:14 | CP.PCM.CON ---
History of Present Illness - History of Present Illness History of Present Illness: Pulmonary Evalution, Covering Dr. Jose The patient was Seen and examined by me at the bedside, Events reviewed Past Patient History - Past Medical History & Family History Past Medical History?: Yes - Past Social History Smoking Status: Former Smoker - CARDIAC Hx Congestive Heart Failure: Yes Hx Hypertension: Yes - PULMONARY Hx Asthma: Yes Hx Chronic Obstructive Pulmonary Disease (COPD): Yes Hx Pneumonia: Yes (Lobar) - NEUROLOGICAL Hx Neurological Disorder: Yes Hx Dizziness: Yes - HEENT Hx HEENT Problems: No - RENAL Hx Chronic Kidney Disease: No - ENDOCRINE/METABOLIC Hx Diabetes Mellitus Type 2: Yes - HEMATOLOGICAL/ONCOLOGICAL Hx Blood Disorders: No Other/Comment: sepsis - INTEGUMENTARY Hx Dermatological Problems: No - MUSCULOSKELETAL/RHEUMATOLOGICAL Hx Falls: Yes - GASTROINTESTINAL Hx Gastrointestinal Disorders: No Hx Gastroesophageal Reflux: Yes - GENITOURINARY/GYNECOLOGICAL Hx Genitourinary Disorders: No Other/Comment: Carcinoma in situ of layrnx - PSYCHIATRIC Hx Substance Use: No - SURGICAL HISTORY Hx Surgeries: Yes Other/Comment: Gastrostomy. tracheostomy - ANESTHESIA Hx Anesthesia: Yes Meds Allergies/Adverse Reactions: Allergies Allergy/AdvReac Type Severity Reaction Status Date / Time No Known Allergies Allergy Verified 05/03/18 00:00 - Medications Medications: Current Medications Acetaminophen (Tylenol 650mg/20.3ml Solution Ud) 650 mg GT Q4 PRN PRN Reason: Pain, moderate (4-7) Al Hydrox/Mg Hydrox/Simethicone (Maalox Plus 30 Ml) 30 ml GT Q4H PRN PRN Reason: Heartburn Albuterol/Ipratropium (Duoneb 3 Mg/0.5 Mg (3 Ml) Ud) 3 ml INH RQ4 JUANA Last Admin: 05/03/18 15:43 Dose: 3 ml Ascorbic Acid (Vitamin C 250 Mg Tab) 250 mg GT DAILY JUANA Last Admin: 05/03/18 10:46 Dose: 250 mg Aspirin (Aspirin Chewable) 81 mg GT DAILY [facility] Last Admin: 05/03/18 09:59 Dose: 81 mg Diltiazem HCl (Cardizem) 30 mg GT Q6 JUANA Last Admin: 05/03/18 12:11 Dose: 30 mg Enoxaparin Sodium (Lovenox) 40 mg SC DAILY [facility] Last Admin: 05/03/18 09:59 Dose: 40 mg Folic Acid (Folic Acid) 1 mg GT DAILY [facility] Last Admin: 05/03/18 09:59 Dose: 1 mg Furosemide (Lasix) 40 mg PEG DAILY [facility] Last Admin: 05/03/18 09:58 Dose: 40 mg Piperacillin Sod/Tazobactam Sod (Zosyn 2.25 Gm Iv Premix) 2.25 gm in 50 mls @ 100 mls/hr IVPB Q6H JUANA PRN Reason: Protocol Last Admin: 05/03/18 14:30 Dose: 100 mls/hr Vancomycin/Sodium Chloride (Vancomycin 1 Gm/Ns 200 Ml) 1 gm in 200 mls @ 133 mls/hr IVPB Q24H JUANA PRN Reason: Protocol Stop: 05/08/18 14:31 Last Admin: 05/03/18 14:33 Dose: 133 mls/hr Magnesium Hydroxide (Milk Of Magnesia) 30 ml GT HS PRN PRN Reason: Constipation Multivitamins/Vitamin C (Multi-Delyn Liquid) 5 ml GT DAILY [facility] Last Admin: 05/03/18 10:46 Dose: 5 ml Saccharomyces Boulardii (Florastor) 250 mg GT DAILY [facility] Last Admin: 05/03/18 09:59 Dose: 250 mg Tiotropium Hector (Spiriva Inhalation Handihaler Device) 1 inhaler INH DAILY [facility] Tiotropium Hector (Spiriva) 18 mcg INH RQ24 [facility] Last Admin: 05/03/18 15:44 Dose: Not Given Vitamin A (Vitamin A & D Oint Ud Foilpak) 0.5 ea TOP BID PRN PRN Reason: Dry skin Zinc Sulfate (Zinc Sulfate 220 Mg Cap) 220 mg GT DAILY [facility] Last Admin: 05/03/18 09:59 Dose: 220 mg Results - Vital Signs Recent Vital Signs: Last Vital Signs Temp 97.9 F 05/03/18 15:30 Pulse 90 05/03/18 15:47 Resp 18 05/03/18 15:30 BP 110/62 05/03/18 18:00 Pulse Ox 100 05/03/18 08:43 - Labs Result Diagrams: 05/03/18 00:15 05/03/18 01:03 Labs: Laboratory Results - last 24 hr 05/03/18 05/03/18 05/03/18 00:05 00:09 00:15 WBC 9.6 D RBC 2.95 L Hgb 8.2 L Hct 24.9 L MCV 84.3 MCH 27.6 MCHC 32.8 L RDW 17.4 H Plt Count 474 H D MPV 7.6 Neut % (Auto) 65.3 Lymph % (Auto) 19.8 L Castro % (Auto) 6.5 Eos % (Auto) 7.8 H Baso % (Auto) 0.6 Neut # (Auto) 6.3 Lymph # (Auto) 1.9 Castro # (Auto) 0.6 Eos # (Auto) 0.7 Baso # (Auto) 0.1 PT INR APTT Puncture Site pCO2 pO2 33 HCO3 ABG pH ABG Total CO2 ABG O2 Saturation ABG Base Excess Suraj Test ABG Potassium VBG pH 7.27 L VBG pCO2 103 H* VBG HCO3 35.8 VBG Total CO2 50.5 H VBG O2 Sat (Calc) 54.3 VBG Base Excess 15.4 H VBG Potassium 3.9 A-a O2 Difference Respiratory Index Sodium 140.0 Chloride 95.0 L Glucose 109 Lactate 0.9 Vent Mode Mechanical Rate FiO2 Tidal Volume PEEP Crit Value Called To Dr lane Crit Value Called By Tono foster/rt Crit Value Read Back Y Blood Gas Notified Time 15 Potassium Carbon Dioxide Anion Gap BUN Creatinine Est GFR ( Amer) Est GFR (Non-Af Amer) POC Glucose (mg/dL) 125 H Random Glucose Lactic Acid Calcium Magnesium Total Bilirubin AST ALT Alkaline Phosphatase Troponin I Total Protein Albumin Globulin Albumin/Globulin Ratio TSH 3rd Generation Arterial Blood Potassium Venous Blood Potassium 3.9 Urine Color Urine Clarity Urine pH Ur Specific [place] Urine Protein Urine Glucose (UA) Urine Ketones Urine Blood Urine Nitrate Urine Bilirubin Urine Urobilinogen Ur Leukocyte Esterase Urine WBC (Auto) Urine RBC (Auto) Ur Squamous Epith Cells Urine Bacteria Hyaline Casts Urine Yeast (Budding) Blood Type Antibody Screen 05/03/18 05/03/18 05/03/18 00:15 01:03 01:05 WBC RBC Hgb Hct MCV MCH MCHC RDW Plt Count MPV Neut % (Auto) Lymph % (Auto) Castro % (Auto) Eos % (Auto) Baso % (Auto) Neut # (Auto) Lymph # (Auto) Castro # (Auto) Eos # (Auto) Baso # (Auto) PT 14.3 H INR 1.3 APTT 45 H Puncture Site Lb pCO2 68 H pO2 445 H HCO3 35.2 H ABG pH 7.39 ABG Total CO2 43.3 H ABG O2 Saturation 100.0 H ABG Base Excess 13.1 H Suraj Test Na ABG Potassium 3.5 L VBG pH VBG pCO2 VBG HCO3 VBG Total CO2 VBG O2 Sat (Calc) VBG Base Excess VBG Potassium A-a O2 Difference 183.0 Respiratory Index 0.4 Sodium 143 139.0 Chloride 91 L 101.0 Glucose 93 Lactate 0.9 Vent Mode Prvc Mechanical Rate 20 FiO2 100.0 Tidal Volume 400 PEEP 5 Crit Value Called To Crit Value Called By Crit Value Read Back Blood Gas Notified Time Potassium 4.2 Carbon Dioxide 43 H* Anion Gap 13 BUN 42 H Creatinine 0.8 Est GFR ( Amer) > 60 Est GFR (Non-Af Amer) > 60 POC Glucose (mg/dL) Random Glucose 115 H Lactic Acid Calcium 8.7 Magnesium 2.0 Total Bilirubin 0.5 AST 120 H D ALT 73 H D Alkaline Phosphatase 121 Troponin I 0.0380 Total Protein 7.9 Albumin 3.4 L Globulin 4.5 H Albumin/Globulin Ratio 0.8 L TSH 3rd Generation 1.34 Arterial Blood Potassium 3.5 L Venous Blood Potassium Urine Color Urine Clarity Urine pH Ur Specific [place] Urine Protein Urine Glucose (UA) Urine Ketones Urine Blood Urine Nitrate Urine Bilirubin Urine Urobilinogen Ur Leukocyte Esterase Urine WBC (Auto) Urine RBC (Auto) Ur Squamous Epith Cells Urine Bacteria Hyaline Casts Urine Yeast (Budding) Blood Type Antibody Screen 05/03/18 05/03/18 05/03/18 01:59 03:39 06:01 WBC RBC Hgb Hct MCV MCH MCHC RDW Plt Count MPV Neut % (Auto) Lymph % (Auto) Castro % (Auto) Eos % (Auto) Baso % (Auto) Neut # (Auto) Lymph # (Auto) Castro # (Auto) Eos # (Auto) Baso # (Auto) PT INR APTT Puncture Site R rad pCO2 76 H* pO2 78 L HCO3 34.8 H ABG pH 7.35 ABG Total CO2 44.3 H ABG O2 Saturation 97.0 ABG Base Excess 12.8 H Suraj Test Pos ABG Potassium 3.3 L VBG pH VBG pCO2 VBG HCO3 VBG Total CO2 VBG O2 Sat (Calc) VBG Base Excess VBG Potassium A-a O2 Difference 184.0 Respiratory Index 2.4 Sodium 143.0 Chloride 105.0 Glucose 85 Lactate 0.5 L Vent Mode Mechanical Rate FiO2 50.0 Tidal Volume PEEP Crit Value Called To Yisel henderson rn Crit Value Called By Sofía philip rt Crit Value Read Back Y Blood Gas Notified Time 624 Potassium Carbon Dioxide Anion Gap BUN Creatinine Est GFR ( Amer) Est GFR (Non-Af Amer) POC Glucose (mg/dL) Random Glucose Lactic Acid 0.7 Calcium Magnesium Total Bilirubin AST ALT Alkaline Phosphatase Troponin I Total Protein Albumin Globulin Albumin/Globulin Ratio TSH 3rd Generation Arterial Blood Potassium 3.3 L Venous Blood Potassium Urine Color Yellow Urine Clarity Hazy Urine pH 6.0 Ur Specific [place] 1.016 Urine Protein 2+ H Urine Glucose (UA) Normal Urine Ketones Negative Urine Blood 1+ H Urine Nitrate Negative Urine Bilirubin Negative Urine Urobilinogen Normal Ur Leukocyte Esterase 3+ H Urine WBC (Auto) 71 H Urine RBC (Auto) 40 H Ur Squamous Epith Cells 1 Urine Bacteria Occ H Hyaline Casts 0-2 Urine Yeast (Budding) Mod H Blood Type Antibody Screen 05/03/18 07:12 WBC RBC Hgb Hct MCV MCH MCHC RDW Plt Count MPV Neut % (Auto) Lymph % (Auto) Castro % (Auto) Eos % (Auto) Baso % (Auto) Neut # (Auto) Lymph # (Auto) Castro # (Auto) Eos # (Auto) Baso # (Auto) PT INR APTT Puncture Site pCO2 pO2 HCO3 ABG pH ABG Total CO2 ABG O2 Saturation ABG Base Excess Suraj Test ABG Potassium VBG pH VBG pCO2 VBG HCO3 VBG Total CO2 VBG O2 Sat (Calc) VBG Base Excess VBG Potassium A-a O2 Difference Respiratory Index Sodium Chloride Glucose Lactate Vent Mode Mechanical Rate FiO2 Tidal Volume PEEP Crit Value Called To Crit Value Called By Crit Value Read Back Blood Gas Notified Time Potassium Carbon Dioxide Anion Gap BUN Creatinine Est GFR ( Amer) Est GFR (Non-Af Amer) POC Glucose (mg/dL) Random Glucose Lactic Acid Calcium Magnesium Total Bilirubin AST ALT Alkaline Phosphatase Troponin I Total Protein Albumin Globulin Albumin/Globulin Ratio TSH 3rd Generation Arterial Blood Potassium Venous Blood Potassium Urine Color Urine Clarity Urine pH Ur Specific [place] Urine Protein Urine Glucose (UA) Urine Ketones Urine Blood Urine Nitrate Urine Bilirubin Urine Urobilinogen Ur Leukocyte Esterase Urine WBC (Auto) Urine RBC (Auto) Ur Squamous Epith Cells Urine Bacteria Hyaline Casts Urine Yeast (Budding) Blood Type O POSITIVE Antibody Screen Negative
[2018-05-03 20:50] VITALS: PULSE 93
[2018-05-03] MEDS ORDERED: Magnesium Hydroxide Susp 30 ml UD GT PRN (22:00)
--- NOTE | 2018-05-04 23:10 | CARD ---
APPROVED REPORT EKG Measurement Heart [id number] <Conclusion> Sinus tachycardia Right atrial enlargement Abnormal QRS-T angle, consider primary T wave abnormality Abnormal ECG
== END 2018-05-03 18:27 | DRG 206 ==
LOC: C.ER 23:57 → C.9E 05-03 02:01 → C.5S 05-03 06:45
PROVIDERS: ADMIT Internal Medicine Nephrology; ATTEND Internal Medicine Nephrology
PROC: 0B21XFZ Change Tracheostomy Device in Trachea, External Approach (ICD-10-PCS; principal; 2018-05-03)
DX: J95.03 Malfunction of tracheostomy stoma (principal); R06.81 Apnea, not elsewhere classified; R64 Cachexia; J44.9 Chronic obstructive pulmonary disease, unspecified; I11.0 Hypertensive heart disease with heart failure; I50.9 Heart failure, unspecified; N28.9 Disorder of kidney and ureter, unspecified; L89.159 Pressure ulcer of sacral region, unspecified stage; K21.9 Gastro-esophageal reflux disease without esophagitis; Z66 Do not resuscitate; Z93.1 Gastrostomy status; Z85.21 Personal history of malignant neoplasm of larynx; Z87.891 Personal history of nicotine dependence; Z87.01 Personal history of pneumonia (recurrent)

== ENCOUNTER 2018-05-11 04:01 | Emergency (ER) | payer MEDICARE ==
[2018-05-11 04:03] VITALS: BMI 12.5
--- NOTE | 2018-05-11 04:16 | C.PDOC ---
History Of Present Illness 72 y/o male [facility] for [facility] of trach dysfunction. [facility] sand tester thought the trach was dysfunctional as inner cannula was moving around freely within the outer trach collar. Patient was sent in for further evaluation. No other physical complaints offered. On arrival patient is awake, alert, in no acute distress. No fevers, chills, or SOB. Time Seen by Provider: 05/11/18 04:15 History Per: Other ([facility] records) History/Exam Limitations: None Onset/Duration Of Symptoms: Mins Current Symptoms Are (Timing): Still Present Past Medical History Reviewed: Historical Data, Nursing Documentation, Vital Signs Vital Signs: Last Vital Signs Temp 98.6 F 05/11/18 04:31 Pulse 109 H 05/11/18 04:31 Resp 16 05/11/18 04:31 BP 97/68 L 05/11/18 04:31 Pulse Ox 100 05/11/18 04:31 - Medical History PMH: Asthma, CHF, COPD, HTN, Pneumonia (Lobar) Denies: Chronic Kidney Disease Other Surgeries: Tracheostomy placement - [facility] Procedures ASSISTANCE WITH RESPIRATORY VENTILATION, <24 HRS, CPAP (11/24/16) CHANGE TRACHEOSTOMY DEVICE IN TRACHEA, EXTERNAL APPROACH (05/03/18) DRAINAGE OF RIGHT PLEURAL CAVITY, PERC APPROACH, DIAGN (11/11/17) EXCISION OF LARYNX, ENDO, DIAGN (11/11/17) EXCISION OF SMALL INTESTINE, ENDO, DIAGN (11/11/17) INSERT INFUSION DEV IN R INT JUGULAR VEIN, PERC (11/24/16) INSERTION OF ENDOTRACHEAL AIRWAY INTO TRACHEA, VIA OPENING (11/11/17) INSERTION OF FEEDING DEVICE INTO STOMACH, PERC APPROACH (11/11/17) INSERTION OF INFUSION DEV INTO SUP VENA CAVA, PERC APPROACH (04/11/18) INSPECTION OF LARYNX, ENDO (11/11/17) RESPIRATORY VENTILATION, 24-96 CONSECUTIVE HOURS (01/15/18) RESPIRATORY VENTILATION, LESS THAN 24 CONSECUTIVE HOURS (11/24/16) Family History: States: Unknown Family Hx - Social History Hx Alcohol Use: No Hx Substance Use: No - Immunization History Hx Tetanus Toxoid Vaccination: No Hx Influenza Vaccination: Yes (11/2017) Hx Pneumococcal Vaccination: Yes (11/2017) Review Of Systems Except As Marked, All Systems Reviewed And Found Negative. Constitutional: Negative for: Fever, Chills Cardiovascular: Negative for: Chest Pain Respiratory: Positive for: Other (Trach dysfunction). Negative for: Shortness of Breath Physical Exam - Physical Exam Appears: No Acute Distress, Other (emaciated, elderly male) Skin: Normal Color, Warm, Dry Head: Atraumatic, Normacephalic Eye(s): bilateral: Normal Inspection, PERRL, EOMI Oral Mucosa: Moist Neck: Normal ROM, Other (upon rotation of inner cannula, it locks into place; tracheostomy site is patent, tracheostomy appears to be in good position) Chest: Symmetrical Cardiovascular: Rhythm Regular, No Murmur, Other (S1, S2 are wnl) Respiratory: Normal Breath Sounds, No Rales, No Rhonchi, No Wheezing Gastrointestinal/Abdominal: Soft, No Tenderness, No Distention Extremity: Bilateral: Atraumatic, Normal Color And Temperature (without clubbing , edema, or cyanosis), Normal ROM Pulses: Left Radial: Normal, Right Radial: Normal Neurological/Psych: Other (Awake, alert) Medical Decision Making Medical Decision Making: Inner cannula was not adequately rotated in order to lock into the outer collar ; once rotated and locked into place, cannula is no longer moving around. Airway is patent, breathing easy and non-labored. Patient is stable for [facility] to [facility]. Disposition Counseled Patient/Family Regarding: Diagnosis, Need For Followup - Disposition Disposition: TRANSF TO SNF Disposition Time: 04:35 Condition: STABLE - POA Present On Arrival: None - Clinical Impression Clinical Impression: Tracheostomy care - Scribe Statement The provider has reviewed the documentation as recorded by the Scribe (Marquita Ortega) Provider Attestation: All medical record entries made by the Scribe were at my direction and personally dictated by me. I have reviewed the chart and agree that the record accurately reflects my personal performance of the history, physical exam, medical decision making, and the department course for this patient. I have also personally directed, reviewed, and agree with the discharge instructions and disposition.
[2018-05-11 04:48] VITALS: RESP 16
[2018-05-11 05:24] VITALS: BP 118/78; PULSE 110; TEMP 98.1; O2SAT 96
== END 2018-05-11 05:21 | disposition home or self-care (01) ==
LOC: C.ER 04:01
DX: Z43.0 Encounter for attention to tracheostomy (principal)

== ENCOUNTER 2018-05-15 12:01 | Inpatient (IN) | payer MEDICARE ==
[2018-05-15] MEDS ORDERED: Sodium Chloride 0.9% 250 ML IV ONE (12:26)
[2018-05-15 12:51] LABS: SQUAMOUS EPITHIAL < 1 /hpf (0-5); URINE BACTERIA RARE (<OCC); URINE BILIRUBIN NEGATIVE (NEGATIVE); URINE BLOOD 1+ (NEGATIVE); URINE CLARITY Hazy (Clear); URINE COLOR Yellow (YELLOW); URINE GLUCOSE (UA) NORMAL (Normal); URINE LEUKOCYTE ESTERASE 2+ Leu/uL (Negative); URINE PROTEIN 1+ mg/dL (NEGATIVE); URINE UROBILINOGEN NORMAL mg/dL (0.2-1.0)
[2018-05-15 12:58] LABS: BASO % 0.5 % (0.0-2.0); EOS # 0.2 K/uL (0.0-0.7); EOS % 2.4 % (0.0-4.0); HEMOGLOBIN 10.1 g/dL (12.0-18.0); LYMPH # 1.1 K/uL (1.0-4.3); MEAN CORPUSCULAR HEMOGLOBIN 28.6 pg (27.0-31.0); MEAN CORPUSCULAR HGB CONC 32.2 g/dL (33.0-37.0); MEAN PLATELET VOLUME 7.9 fL (7.2-11.7); MONO # 0.7 K/uL (0.0-0.8); MONO % 7.4 % (0.0-10.0); NEUT # 7.7 K/uL (1.8-7.0); NEUT % 78.7 % (50.0-75.0); RBC 3.52 Mil/uL (4.40-5.90); RED CELL DISTRIBUTION WIDTH 21.1 % (11.5-14.5); WHITE BLOOD COUNT 9.8 K/uL (4.8-10.8)
[2018-05-15 13:00] LABS: MEAN CELL VOLUME 88.9 fL (80.0-94.0)
[2018-05-15 13:06] LABS: INR 1.2; PROTHROMBIN TIME 13.2 SECONDS (9.7-12.2)
[2018-05-15] MEDS ORDERED: Albuterol 0.083% Inhal Sol (2.5 mg/3 mL) UD IH STA ×2 (13:12→14:34)
[2018-05-15] MEDS ORDERED: Albuterol 0.083% Inhal Sol (2.5 mg/3 mL) UD ONE ×2 (13:20→14:47)
[2018-05-15 13:27] LABS: B-TYPE NATRIURETIC PEPTIDE 1080 pg/mL (0-900); CK-MB 1.16 ng/mL (0.0-3.38)
[2018-05-15 13:33] LABS: ALB/GLOB RATIO 0.7 (1.0-2.1); ALBUMIN 3.9 g/dL (3.5-5.0); ALT/SGPT 28 U/L (21-72); AST/SGOT 62 U/L (17-59); BLOOD UREA NITROGEN 36 mg/dL (9-20); CALCIUM 9.5 mg/dl (8.6-10.4); GFR AFRICAN-AMERICAN > 60; GFR NON-AFRICAN AMERICAN > 60
--- NOTE | 2018-05-15 13:36 | RAD ---
PROCEDURE: CHEST RADIOGRAPH, 1 VIEW HISTORY: SOB COMPARISON: Chest radiograph dated 05/03/2018. FINDINGS: LUNGS: Similar hazy change involving the left mid/upper lung. Diffuse emphysematous changes. PLEURA: No pneumothorax or pleural fluid seen. CARDIOVASCULAR: Normal. OSSEOUS STRUCTURES: No significant abnormalities. VISUALIZED UPPER ABDOMEN: Normal. OTHER FINDINGS: Tracheostomy, unchanged. Right upper extremity PICC has been pulled back with tip in the right axilla. IMPRESSION: Similar hazy change along the left mid/upper lung. Malpositioned PICC which has pulled back with tip in the axilla.
--- NOTE | 2018-05-15 13:38 | C.PDOC ---
History Of Present Illness Patient sent from [facility] for evaluation of SOB, apparently POx was 80% at [facility]. Patient has PMHx of PNA, COPD, CHF, anemia, respiratory failure with trach. History limited due to clinical condition. Time Seen by Provider: 05/15/18 12:17 Chief Complaint (Nursing): Respiratory Distress History Per: EMS History/Exam Limitations: clinical condition Onset/Duration Of Symptoms: Hrs Current Symptoms Are (Timing): Still Present Current Respiratory Medications: See Home Med List Severity: Mild Past Medical History Reviewed: Historical Data, Nursing Documentation, Vital Signs Vital Signs: Last Vital Signs Temp 97.9 F 05/16/18 15:00 Pulse 95 H 05/16/18 15:00 Resp 20 05/16/18 15:00 BP 106/63 05/16/18 15:00 Pulse Ox 98 05/16/18 15:00 - Medical History PMH: Asthma, CHF, COPD, HTN, Pneumonia (Lobar) - [facility] Procedures ASSISTANCE WITH RESPIRATORY VENTILATION, <24 HRS, CPAP (11/24/16) CHANGE TRACHEOSTOMY DEVICE IN TRACHEA, EXTERNAL APPROACH (05/03/18) DRAINAGE OF RIGHT PLEURAL CAVITY, PERC APPROACH, DIAGN (11/11/17) EXCISION OF LARYNX, ENDO, DIAGN (11/11/17) EXCISION OF SMALL INTESTINE, ENDO, DIAGN (11/11/17) INSERT INFUSION DEV IN R INT JUGULAR VEIN, PERC (11/24/16) INSERTION OF ENDOTRACHEAL AIRWAY INTO TRACHEA, VIA OPENING (11/11/17) INSERTION OF FEEDING DEVICE INTO STOMACH, PERC APPROACH (11/11/17) INSERTION OF INFUSION DEV INTO SUP VENA CAVA, PERC APPROACH (04/11/18) INSPECTION OF LARYNX, ENDO (11/11/17) RESPIRATORY VENTILATION, 24-96 CONSECUTIVE HOURS (01/15/18) RESPIRATORY VENTILATION, LESS THAN 24 CONSECUTIVE HOURS (11/24/16) Family History: States: No Known Family Hx - Social History Hx Alcohol Use: No Hx Substance Use: No - Immunization History Hx Tetanus Toxoid Vaccination: No Hx Influenza Vaccination: Yes (11/2017) Hx Pneumococcal Vaccination: Yes (11/2017) Review Of Systems Review Of Systems: ROS cannot be obtained secondary to pt's inabilty to answer questions. Physical Exam - Physical Exam Appears: Non-toxic, Chronically Ill, Other (in mild respiratory distress ) Skin: Normal Color, Warm, Dry Head: Atraumatic, Normacephalic Eye(s): bilateral: Normal Inspection, PERRL, EOMI Oral Mucosa: Dry Cardiovascular: Rhythm Regular (tachycardic ) Respiratory: Accessory Muscle Use (mild), Other (coarse upper airway/trach sounds, no rales/rhonchi, (+) mild scattered exp wheezing) Gastrointestinal/Abdominal: Normal Exam, Bowel Sounds, Soft, No Tenderness, Other (PEG tube in place) Male Genital: Other (indwelling herrera catheter) Extremity: Bilateral: Atraumatic, Normal Color And Temperature Neurological/Psych: Other (awake, alert) ED Course And Treatment - Laboratory Results Result Diagrams: 05/15/18 12:53 05/15/18 12:53 ECG: Interpreted By Me, Viewed By Me (sints tachycardia 111bpm, normal axis, Q waves aVF, V2, no acute ST/T wave changes) ECG Interpretation: Abnormal O2 Sat by Pulse Oximetry: 90 (NRB) Pulse Ox Interpretation: Abnormal - Other Rad CXR X-Ray: Viewed By Me, Read By Radiologist Interpretation: Accession No. : [id number]. Patient Name / ID : PRUDENCE ABEL / [id number]. Exam Date : 05/15/2018 12:39:24 ( Approved ). Study Comment : Sex / Age : M / [id number]. Creator : Jez Griffiths MD. Dictator : Jez Griffiths MD. Director Construction Services : Refinery Operator Helper : Jez Griffiths MD. Approver2 : Report Date : 05/15/2018 13:34:56. My Comment : . PROCEDURE: CHEST RADIOGRAPH, 1 VIEW. HISTORY: SOB. COMPARISON: Chest radiograph dated 05/03/2018. FINDINGS: LUNGS: Similar hazy change involving the left mid /upper lung. Diffuse emphysematous changes. PLEURA: No pneumothorax or pleural fluid seen. CARDIOVASCULAR: Normal. OSSEOUS STRUCTURES: No significant abnormalities. VISUALIZED UPPER ABDOMEN: Normal. OTHER FINDINGS: Tracheostomy, unchanged. Right upper extremity PICC has been pulled back with tip in the right axilla. IMPRESSION: Similar hazy change along the left mid/ upper lung. Malpositioned PICC which has pulled back with tip in the axilla. Progress Note: Blood work, CXR, EKG, UA ordered and reviewed. Patient given small 250ml IV bolus, IV solumedrol, duoneb treatments. CXR shows possible RU lobe infiltrate, UA (+) for UTI - IV Vancomycin and IV Cefepime given. 3:00pm- Patient seen by archana Stanton for medical floor. Patient will be telemetry admission to Dr. Mushtaq Denton. Reevaluation Time: 14:30 Reassessment Condition: Improved (Patient appears improved, more awake & alert, Pox improved.) - Physician Consult Information Physician Contacted: Ja Jose Outcome Of Conversation: Spoke with brand marketing manager, will come down and eval patient. Critical Care Time - Critical Care Note Total Time (in mins): 40 Documented critical care: time excludes all time spent performing seperately billable procedures. Disposition - Disposition Disposition: HOSPITALIZED Disposition Time: 14:48 Condition: FAIR - Clinical Impression Clinical Impression: COPD exacerbation, Hypoxia, Hypercarbia, UTI (urinary tract infection), Tracheostomy dependent, Pneumonia Decision To Admit - Pt Status Changed To: Hospital Disposition Of: Inpatient - Admit Certification Admit to Inpatient:: After my assessment, the patient will require hospitalization for at least two midnights. This is because of the severity of symptoms shown, intensity of services needed, and/or the medical risk in this patient being treated as an outpatient. - InPatient: Physician Admission Certification: I certify that this patient requires 2 or more midnights of care for the following reason:: see notes - . Bed Request Type: Telemetry Admitting Physician: Yvonne Denton Patient Diagnosis: COPD exacerbation, Hypoxia, Hypercarbia, Pneumonia, UTI (urinary tract infection), Dyspnea, Tracheostomy dependent
[2018-05-15 14:04] LABS: VENOUS BLOOD GAS BASE EXCESS 2.9 mmol/L (0.0-2.0); VENOUS BLOOD GAS PCO2 74 mmHg (40-60); VENOUS BLOOD GAS PO2 43 mm/Hg (30-55); VENOUS BLOOD PH 7.25 (7.32-7.43)
[2018-05-15 14:25] LABS: ABG ALLEN TEST POS; ARTERIAL BLOOD GAS O2 SAT 88.1 % (95-98); ARTERIAL BLOOD GAS PCO2 75 mm/Hg (35-45); ARTERIAL BLOOD GAS PH 7.36 (7.35-7.45); ARTERIAL BLOOD GAS PO2 50 mm/Hg (80-100); ARTERIAL BLOOD GAS TCO2 44.7 mmol/L (22-28)
[2018-05-15] MEDS ORDERED: Albuterol-Ipratrop 3 mg / 0.5 (3 ml) UD INH STA (14:33)
[2018-05-15] MEDS ORDERED: cefTRIAXone IV 1 gm in Dextros 50 ML IV STA (14:37)
[2018-05-15] MEDS ORDERED: Vancomycin 1 GM 1 GM/250 ML BAG IV STA (14:43)
[2018-05-15] MEDS ORDERED: Cefepime IV 1 gm in Dextrose 1 GM/50 ML BAG IVPB STA (14:44)
[2018-05-15] MEDS ORDERED: Albuterol-Ipratrop 3 mg / 0.5 (3 ml) UD ONE (14:46)
[2018-05-15] MEDS ORDERED: Dextrose 5%/0.9% NS 1,000 ML IV ONE ×2 (15:06→17:41)
[2018-05-15] MEDS: Vancomycin 1 gm/NS 200 ml 1 GM/200 ML BAG IVPB STA ×2 (16:21→16:33)
[2018-05-15] MEDS ORDERED: Vancomycin 1 gm/NS 200 ml 1 GM/200 ML BAG IVPB STA (16:27)
--- NOTE | 2018-05-15 18:19 | CP.PCM.CON ---
History of Present Illness - History of Present Illness History of Present Illness: Reason for Consult: Hx of COPD, desaturation 72 year old with PMHx of Laryngeal Cancer, COPD, HTN, and CHF, who was sent by his halfway to the ED because his O2 saturation dropped to 58%. . Patient was unable to verbalize answers to questions. Patient seen at bedside and was resting comfortably in no acute distress. Patient's O2 saturation improved. PMHx: Laryngeal Cancer, COPD, Asthma, HTN, CHF PSHx: Gastrostomy, Tracheostomy Allergies: NKDA Social Hx: Patient lives in a halfway. Further social history unobtainable Review of Systems - Review of Systems Systems not reviewed;Unavailable: Altered Mental Status Past Patient History - Past Medical History & Family History Past Medical History?: Yes - Past Social History Smoking Status: Former Smoker - CARDIAC Hx Congestive Heart Failure: Yes Hx Hypertension: Yes - PULMONARY Hx Asthma: Yes Hx Chronic Obstructive Pulmonary Disease (COPD): Yes Hx Pneumonia: Yes (Lobar) - NEUROLOGICAL Hx Neurological Disorder: Yes Hx Dizziness: Yes - HEENT Hx HEENT Problems: No - RENAL Hx Chronic Kidney Disease: No - ENDOCRINE/METABOLIC Hx Diabetes Mellitus Type 2: Yes - HEMATOLOGICAL/ONCOLOGICAL Hx Blood Disorders: No Other/Comment: sepsis - INTEGUMENTARY Hx Dermatological Problems: No - MUSCULOSKELETAL/RHEUMATOLOGICAL Hx Falls: Yes - GASTROINTESTINAL Hx Gastrointestinal Disorders: Yes - GENITOURINARY/GYNECOLOGICAL Hx Genitourinary Disorders: No Other/Comment: Carcinoma in situ of layrnx - PSYCHIATRIC Hx Substance Use: No - SURGICAL HISTORY Hx Surgeries: Yes Other/Comment: Gastrostomy. tracheostomy - ANESTHESIA Hx Anesthesia: Yes Meds Allergies/Adverse Reactions: Allergies Allergy/AdvReac Type Severity Reaction Status Date / Time No Known Allergies Allergy Verified 05/15/18 18:07 - Medications Medications: Current Medications Dextrose/Sodium Chloride (Dextrose 5%/0.9% Ns 1000 Ml) 1,000 mls @ 100 mls/hr IV .Q10H ONE Stop: 05/16/18 01:05 Last Admin: 05/15/18 17:47 Dose: 100 mls/hr Physical Exam - Head Exam Head Exam: ATRAUMATIC, NORMOCEPHALIC Results - Vital Signs Recent Vital Signs: Last Vital Signs Temp 98.7 F 05/15/18 17:47 Pulse 105 H 05/15/18 17:47 Resp 22 05/15/18 17:47 BP 115/79 05/15/18 17:47 Pulse Ox 97 05/15/18 17:47 - Labs Result Diagrams: 05/15/18 12:53 05/15/18 12:53 Labs: Laboratory Results - last 24 hr 05/15/18 05/15/18 05/15/18 12:36 12:53 12:53 WBC 9.8 RBC 3.52 L Hgb 10.1 L Hct 31.3 L MCV 88.9 D MCH 28.6 MCHC 32.2 L RDW 21.1 H Plt Count 365 D MPV 7.9 Neut % (Auto) 78.7 H Lymph % (Auto) 11.0 L [place] % (Auto) 7.4 Eos % (Auto) 2.4 Baso % (Auto) 0.5 Neut # (Auto) 7.7 H Lymph # (Auto) 1.1 [place] # (Auto) 0.7 Eos # (Auto) 0.2 Baso # (Auto) 0.0 PT INR APTT Puncture Site pCO2 pO2 HCO3 ABG pH ABG Total CO2 ABG O2 Saturation ABG Base Excess Suraj Test ABG Potassium VBG pH VBG pCO2 VBG HCO3 VBG Total CO2 VBG O2 Sat (Calc) VBG Base Excess VBG Potassium A-a O2 Difference Respiratory Index Glucose Lactate Liter Flow FiO2 Crit Value Called To Crit Value Called By Crit Value Read Back Blood Gas Notified Time Sodium 140 Potassium 4.9 Chloride 92 L Carbon Dioxide 39 H Anion Gap 14 BUN 36 H Creatinine 0.5 L Est GFR ( Amer) > 60 Est GFR (Non-Af Amer) > 60 POC Glucose (mg/dL) Random Glucose 136 H Calcium 9.5 Total Bilirubin 1.0 AST 62 H D ALT 28 Alkaline Phosphatase 100 Total Creatine Kinase 38 L CK-MB (Mass) 1.16 Troponin I < 0.0120 NT-Pro-B Natriuret Pep 1080 H Total Protein 9.3 H Albumin 3.9 Globulin 5.5 H Albumin/Globulin Ratio 0.7 L Arterial Blood Potassium Venous Blood Potassium Urine Color Yellow Urine Clarity Hazy Urine pH 5.0 Ur Specific [place] 1.020 Urine Protein 1+ H Urine Glucose (UA) Normal Urine Ketones Negative Urine Blood 1+ H Urine Nitrate Negative Urine Bilirubin Negative Urine Urobilinogen Normal Ur Leukocyte Esterase 2+ H Urine WBC (Auto) 17 H Urine RBC (Auto) 22 H Ur Squamous Epith Cells < 1 Urine Bacteria Rare 05/15/18 05/15/18 05/15/18 12:53 13:52 14:18 WBC RBC Hgb Hct MCV MCH MCHC RDW Plt Count MPV Neut % (Auto) Lymph % (Auto) [place] % (Auto) Eos % (Auto) Baso % (Auto) Neut # (Auto) Lymph # (Auto) [place] # (Auto) Eos # (Auto) Baso # (Auto) PT 13.2 H INR 1.2 APTT 40 H Puncture Site Lb pCO2 75 H* pO2 43 50 L HCO3 35.0 H ABG pH 7.36 ABG Total CO2 44.7 H ABG O2 Saturation 88.1 L ABG Base Excess 13.4 H Suraj Test Pos ABG Potassium 3.8 VBG pH 7.25 L VBG pCO2 74 H* VBG HCO3 26.4 VBG Total CO2 34.8 H VBG O2 Sat (Calc) 76.7 H VBG Base Excess 2.9 H VBG Potassium 2.8 L A-a O2 Difference 70.0 Respiratory Index 1.4 Glucose 79 117 H Lactate 1.3 0.6 L Liter Flow 6.0 FiO2 30.0 Crit Value Called To ronel Montesinos Rn Crit Value Called By Radha Harding Crit Value Read Back Y Y Blood Gas Notified Time 1404 1425 Sodium 149.0 H 141.0 Potassium Chloride 113.0 H 103.0 Carbon Dioxide Anion Gap BUN Creatinine Est GFR ( Amer) Est GFR (Non-Af Amer) POC Glucose (mg/dL) Random Glucose Calcium Total Bilirubin AST ALT Alkaline Phosphatase Total Creatine Kinase CK-MB (Mass) Troponin I NT-Pro-B Natriuret Pep Total Protein Albumin Globulin Albumin/Globulin Ratio Arterial Blood Potassium 3.8 Venous Blood Potassium 2.8 L Urine Color Urine Clarity Urine pH Ur Specific [place] Urine Protein Urine Glucose (UA) Urine Ketones Urine Blood Urine Nitrate Urine Bilirubin Urine Urobilinogen Ur Leukocyte Esterase Urine WBC (Auto) Urine RBC (Auto) Ur Squamous Epith Cells Urine Bacteria 05/15/18 17:43 WBC RBC Hgb Hct MCV MCH MCHC RDW Plt Count MPV Neut % (Auto) Lymph % (Auto) [place] % (Auto) Eos % (Auto) Baso % (Auto) Neut # (Auto) Lymph # (Auto) [place] # (Auto) Eos # (Auto) Baso # (Auto) PT INR APTT Puncture Site pCO2 pO2 HCO3 ABG pH ABG Total CO2 ABG O2 Saturation ABG Base Excess Suraj Test ABG Potassium VBG pH VBG pCO2 VBG HCO3 VBG Total CO2 VBG O2 Sat (Calc) VBG Base Excess VBG Potassium A-a O2 Difference Respiratory Index Glucose Lactate Liter Flow FiO2 Crit Value Called To Crit Value Called By Crit Value Read Back Blood Gas Notified Time Sodium Potassium Chloride Carbon Dioxide Anion Gap BUN Creatinine Est GFR ( Amer) Est GFR (Non-Af Amer) POC Glucose (mg/dL) 145 H Random Glucose Calcium Total Bilirubin AST ALT Alkaline Phosphatase Total Creatine Kinase CK-MB (Mass) Troponin I NT-Pro-B Natriuret Pep Total Protein Albumin Globulin Albumin/Globulin Ratio Arterial Blood Potassium Venous Blood Potassium Urine Color Urine Clarity Urine pH Ur Specific [place] Urine Protein Urine Glucose (UA) Urine Ketones Urine Blood Urine Nitrate Urine Bilirubin Urine Urobilinogen Ur Leukocyte Esterase Urine WBC (Auto) Urine RBC (Auto) Ur Squamous Epith Cells Urine Bacteria Assessment & Plan (1) Acute on chronic respiratory failure with hypoxia and hypercapnia Status: Acute (2) COPD exacerbation Status: Acute (3) Cardiomyopathy Status: Acute
[2018-05-15] MEDS ORDERED: Vancomycin 1 gm/NS 200 ml 1 GM/200 ML BAG IVPB SCH (19:00)
[2018-05-15] MEDS: Albuterol-Ipratrop 3 mg / 0.5 (3 ml) UD INH SCH ×2 (19:45→23:31)
[2018-05-15] MEDS: Cefepime IV 1 gm in Dextrose 1 GM/50 ML BAG IVPB SCH (20:11)
[2018-05-15 20:27] VITALS: BMI 12.2
[2018-05-15] MEDS ORDERED: Acetaminophen 650mg/20.3ml solution UD GT PRN (21:00)
[2018-05-15] MEDS ORDERED: Magnesium Hydroxide Susp 30 ml UD GT PRN (22:00)
[2018-05-16] MEDS: Albuterol-Ipratrop 3 mg / 0.5 (3 ml) UD INH SCH ×6 (03:09→23:44)
[2018-05-16] MEDS: Cefepime IV 1 gm in Dextrose 1 GM/50 ML BAG IVPB SCH ×2 (08:00→20:16)
[2018-05-16] MEDS: Saccharomyces Boulardi 250 mg Cap GT SCH (09:59)
[2018-05-16] MEDS: Collagenase 250 Units/gm Ointment(30 gm) TOP SCH ×3 (09:59→21:58)
[2018-05-16] MEDS: Vitamins A & D Oint UD Foilpak TOP PRN (09:59)
[2018-05-16] MEDS ORDERED: Enoxaparin 30 mg Syringe SC SCH (10:00)
[2018-05-16] MEDS ORDERED: Enoxaparin 40 mg Syringe SC SCH (10:00)
[2018-05-16] MEDS: (Novolog) Insulin Aspart, Recombinant 100 u/ml 10 ml vial SC SCH ×3 (11:30→21:07)
--- NOTE | 2018-05-16 11:49 | CP.PCM.CON ---
History of Present Illness - History of Present Illness History of Present Illness: INFECTIOUS DISEASE CONSULT; HPI ; 72 year old with PMHx of Laryngeal Cancer, COPD, HTN, and CHF, who was [facility] his [facility] to the ED because his O2 saturation dropped to 58%. . Patient was unable to verbalize answers to questions. Patient seen at bedside and was resting comfortably in no acute distress. Patient's O2 saturation improved. HX OBTAINED FROM CHART AND DR LANDRY(PULMONATY SPECIALIST ) INFECTIOUS DISEASE CONSULTATION REQUESTED BY PMD FOR RESPIRATORY ACUTE ON CHRONIC HYPOXIC HYPERCAPNIC RESPIRATORY FAILURE. PATIENT WAS HOSPITALIZED AT [facility] IN JANUARY 2018 AND WAS FOUND TO HAVE PSEUDOMONAS AERUGINOSA PNEUMONIA. PATIENT HAS TRACHEOSTOMY. PATIENT DENIES ANY FEVER OR CHILLS.PT PRESENTLY STARTED ON IV CEFEPIME/AND IV VANCOMYCIN. PMH: Asthma, CHF, COPD, HTN, Pneumonia (Lobar).LARYNGEAL CA S/P TRACH Denies: Chronic Kidney Disease Other PMH: laryngeal cancer Surgical History: No Surg Hx Other Surgeries: tracheostomy,PEG. Past Patient History - Past Medical History & Family History Past Medical History?: Yes - Past Social History Smoking Status: Never Smoked - CARDIAC Hx Congestive Heart Failure: Yes Hx Hypertension: Yes - PULMONARY Hx Asthma: Yes Hx Chronic Obstructive Pulmonary Disease (COPD): Yes Hx Pneumonia: Yes (Lobar) - NEUROLOGICAL Hx Neurological Disorder: Yes Hx Dizziness: Yes - HEENT Hx HEENT Problems: No - RENAL Hx Chronic Kidney Disease: No - ENDOCRINE/METABOLIC Hx Diabetes Mellitus Type 2: Yes - HEMATOLOGICAL/ONCOLOGICAL Hx Blood Disorders: No Other/Comment: sepsis - INTEGUMENTARY Hx Dermatological Problems: No - MUSCULOSKELETAL/RHEUMATOLOGICAL Hx Falls: Yes - GASTROINTESTINAL Hx Gastrointestinal Disorders: Yes - GENITOURINARY/GYNECOLOGICAL Hx Genitourinary Disorders: No Other/Comment: Carcinoma in situ of layrnx - PSYCHIATRIC Hx Substance Use: No - SURGICAL HISTORY Hx Surgeries: Yes Other/Comment: Gastrostomy. tracheostomy - ANESTHESIA Hx Anesthesia: Yes Meds Allergies/Adverse Reactions: Allergies Allergy/AdvReac Type Severity Reaction Status Date / Time No Known Allergies Allergy Verified 05/15/18 18:07 - Medications Medications: Current Medications Acetaminophen (Tylenol 650mg/20.3ml Solution Ud) 650 mg GT Q4 PRN PRN Reason: Pain, Mild (1-3) Albuterol/Ipratropium (Duoneb 3 Mg/0.5 Mg (3 Ml) Ud) 3 ml INH Q4 [facility] Last Admin: 05/16/18 11:33 Dose: 3 ml Aspirin (Aspirin Chewable) 81 mg PEG DAILY [facility] Last Admin: 05/16/18 09:59 Dose: 81 mg Collagenase (Santyl) 1 gm TOP QSHIFT [facility] Diltiazem HCl (Cardizem) 30 mg PEG Q6 [facility] Last Admin: 05/16/18 06:25 Dose: 30 mg Folic Acid (Folic Acid) 1 mg GT DAILY [facility] Last Admin: 05/16/18 09:59 Dose: 1 mg Furosemide (Lasix) 40 mg PEG DAILY [facility] Last Admin: 05/16/18 10:03 Dose: 40 mg Heparin Sodium (Porcine) (Heparin) 5,000 units SC Q12 [facility] Last Admin: 05/16/18 09:59 Dose: 5,000 units Cefepime HCl (Maxipime Iv 1 Gm Premix) 1 gm in 50 mls @ 100 mls/hr IVPB Q12H [facility] PRN Reason: Protocol Last Admin: 05/16/18 08:00 Dose: 100 mls/hr Vancomycin HCl (Vancocin 750mg/Ns 150 Ml) 150 mls @ 150 mls/hr IVPB Q12H [facility] PRN Reason: Protocol Insulin Aspart (Novolog) 0 unit SC ACHS [facility] PRN Reason: Protocol Magnesium Hydroxide (Milk Of Magnesia) 30 ml GT HS PRN PRN Reason: Constipation Mupirocin (Bactroban Ointment) 15 gm TOP DAILY [facility] Pantoprazole Sodium (Protonix Inj) 40 mg IVP DAILY [facility] Last Admin: 05/16/18 09:59 Dose: 40 mg Saccharomyces Boulardii (Florastor) 250 mg GT DAILY [facility] Last Admin: 05/16/18 09:59 Dose: 250 mg Tiotropium [place] (Spiriva Inhalation Handihaler Device) 1 inhaler INH DAILY [facility] Vitamin A (Vitamin A & D Oint Ud Foilpak) 0.5 ea TOP BID PRN PRN Reason: Dry skin Last Admin: 05/16/18 09:59 Dose: 0.5 ea Physical Exam - Constitutional Appears: No Acute Distress, Cachectic - Head Exam Head Exam: NORMAL INSPECTION - Eye Exam Eye Exam: EOMI, PERRL - ENT Exam ENT Exam: Mucous Membranes Moist Additional comments: +VE TRACHEOSTOMY - Neck Exam Neck exam: Positive for: Normal Inspection - Respiratory Exam Respiratory Exam: Rhonchi (BILATERAL), NORMAL BREATHING PATTERN - Cardiovascular Exam Cardiovascular Exam: Tachycardia, REGULAR RHYTHM, +S1, +S2 - GI/Abdominal Exam GI & Abdominal Exam: Normal Bowel Sounds, Soft (GASTROSTOMY TUBE IN PLACE.) - Extremities Exam Extremities exam: Positive for: pedal pulses present. Negative for: calf tenderness - Neurological Exam Neurological exam: Alert - Psychiatric Exam Psychiatric exam: Flat Affect - Skin Skin Exam: Warm Results - Vital Signs Recent Vital Signs: Last Vital Signs Temp 98.2 F 05/16/18 07:05 Pulse 96 H 05/16/18 07:50 Resp 18 05/16/18 07:05 BP 123/73 05/16/18 10:03 Pulse Ox 95 05/16/18 07:05 - Labs Result Diagrams: 05/15/18 12:53 05/15/18 12:53 Labs: Laboratory Results - last 24 hr 05/15/18 05/15/18 05/15/18 12:36 12:53 12:53 WBC 9.8 RBC 3.52 L Hgb 10.1 L Hct 31.3 L MCV 88.9 D MCH 28.6 MCHC 32.2 L RDW 21.1 H Plt Count 365 D MPV 7.9 Neut % (Auto) 78.7 H Lymph % (Auto) 11.0 L [place] % (Auto) 7.4 Eos % (Auto) 2.4 Baso % (Auto) 0.5 Neut # (Auto) 7.7 H Lymph # (Auto) 1.1 [place] # (Auto) 0.7 Eos # (Auto) 0.2 Baso # (Auto) 0.0 PT INR APTT Puncture Site pCO2 pO2 HCO3 ABG pH ABG Total CO2 ABG O2 Saturation ABG Base Excess Suraj Test ABG Potassium VBG pH VBG pCO2 VBG HCO3 VBG Total CO2 VBG O2 Sat (Calc) VBG Base Excess VBG Potassium A-a O2 Difference Respiratory Index Glucose Lactate Liter Flow FiO2 Crit Value Called To Crit Value Called By Crit Value Read Back Blood Gas Notified Time Sodium 140 Potassium 4.9 Chloride 92 L Carbon Dioxide 39 H Anion Gap 14 BUN 36 H Creatinine 0.5 L Est GFR ( Amer) > 60 Est GFR (Non-Af Amer) > 60 POC Glucose (mg/dL) Random Glucose 136 H Calcium 9.5 Total Bilirubin 1.0 AST 62 H D ALT 28 Alkaline Phosphatase 100 Total Creatine Kinase 38 L CK-MB (Mass) 1.16 Troponin I < 0.0120 NT-Pro-B Natriuret Pep 1080 H Total Protein 9.3 H Albumin 3.9 Globulin 5.5 H Albumin/Globulin Ratio 0.7 L Arterial Blood Potassium Venous Blood Potassium Urine Color Yellow Urine Clarity Hazy Urine pH 5.0 Ur Specific [place] 1.020 Urine Protein 1+ H Urine Glucose (UA) Normal Urine Ketones Negative Urine Blood 1+ H Urine Nitrate Negative Urine Bilirubin Negative Urine Urobilinogen Normal Ur Leukocyte Esterase 2+ H Urine WBC (Auto) 17 H Urine RBC (Auto) 22 H Ur Squamous Epith Cells < 1 Urine Bacteria Rare 05/15/18 05/15/18 05/15/18 12:53 13:52 14:18 WBC RBC Hgb Hct MCV MCH MCHC RDW Plt Count MPV Neut % (Auto) Lymph % (Auto) [place] % (Auto) Eos % (Auto) Baso % (Auto) Neut # (Auto) Lymph # (Auto) [place] # (Auto) Eos # (Auto) Baso # (Auto) PT 13.2 H INR 1.2 APTT 40 H Puncture Site Lb pCO2 75 H* pO2 43 50 L HCO3 35.0 H ABG pH 7.36 ABG Total CO2 44.7 H ABG O2 Saturation 88.1 L ABG Base Excess 13.4 H Suraj Test Pos ABG Potassium 3.8 VBG pH 7.25 L VBG pCO2 74 H* VBG HCO3 26.4 VBG Total CO2 34.8 H VBG O2 Sat (Calc) 76.7 H VBG Base Excess 2.9 H VBG Potassium 2.8 L A-a O2 Difference 70.0 Respiratory Index 1.4 Glucose 79 117 H Lactate 1.3 0.6 L Liter Flow 6.0 FiO2 30.0 Crit Value Called To ronel Montesinos Rn Crit Value Called By Radha Harding Crit Value Read Back Y Y Blood Gas Notified Time 1404 1425 Sodium 149.0 H 141.0 Potassium Chloride 113.0 H 103.0 Carbon Dioxide Anion Gap BUN Creatinine Est GFR ( Amer) Est GFR (Non-Af Amer) POC Glucose (mg/dL) Random Glucose Calcium Total Bilirubin AST ALT Alkaline Phosphatase Total Creatine Kinase CK-MB (Mass) Troponin I NT-Pro-B Natriuret Pep Total Protein Albumin Globulin Albumin/Globulin Ratio Arterial Blood Potassium 3.8 Venous Blood Potassium 2.8 L Urine Color Urine Clarity Urine pH Ur Specific [place] Urine Protein Urine Glucose (UA) Urine Ketones Urine Blood Urine Nitrate Urine Bilirubin Urine Urobilinogen Ur Leukocyte Esterase Urine WBC (Auto) Urine RBC (Auto) Ur Squamous Epith Cells Urine Bacteria 05/15/18 05/15/18 05/16/18 17:43 21:20 06:31 WBC RBC Hgb Hct MCV MCH MCHC RDW Plt Count MPV Neut % (Auto) Lymph % (Auto) [place] % (Auto) Eos % (Auto) Baso % (Auto) Neut # (Auto) Lymph # (Auto) [place] # (Auto) Eos # (Auto) Baso # (Auto) PT INR APTT Puncture Site pCO2 pO2 HCO3 ABG pH ABG Total CO2 ABG O2 Saturation ABG Base Excess Suraj Test ABG Potassium VBG pH VBG pCO2 VBG HCO3 VBG Total CO2 VBG O2 Sat (Calc) VBG Base Excess VBG Potassium A-a O2 Difference Respiratory Index Glucose Lactate Liter Flow FiO2 Crit Value Called To Crit Value Called By Crit Value Read Back Blood Gas Notified Time Sodium Potassium Chloride Carbon Dioxide Anion Gap BUN Creatinine Est GFR ( Amer) Est GFR (Non-Af Amer) POC Glucose (mg/dL) 145 H 173 H 150 H Random Glucose Calcium Total Bilirubin AST ALT Alkaline Phosphatase Total Creatine Kinase CK-MB (Mass) Troponin I NT-Pro-B Natriuret Pep Total Protein Albumin Globulin Albumin/Globulin Ratio Arterial Blood Potassium Venous Blood Potassium Urine Color Urine Clarity Urine pH Ur Specific [place] Urine Protein Urine Glucose (UA) Urine Ketones Urine Blood Urine Nitrate Urine Bilirubin Urine Urobilinogen Ur Leukocyte Esterase Urine WBC (Auto) Urine RBC (Auto) Ur Squamous Epith Cells Urine Bacteria - Imaging and Cardiology Chest x-ray Status: Report reviewed by me (+ve trach/rue picc malpositioned/ hazy opacity LML/CLARENCE) Assessment & Plan (1) Acute on chronic respiratory failure with hypoxia and hypercapnia Assessment and Plan: PANCULTURE. SPUTUM gRAM STAIN AND CULTURE. PULMONARY TOILET AND SUCTION WHEN NECESSARY. CONTINUE PRESENT iv ANTIBIOTICS ORDERED. IV CEFEPIME 1 G EVERY 12 HOURLY. /IV VANCOMYCIN-DECREASED DOSE TO 750 EVERY 12 HOURLY.05/15/18 F/U vANCO TROUGH LEVEL PRIOR TO THE FOURTH DOSE AND KEEP BETWEEN 10 AND 20. MONITOR RENAL FUNCTIONS CLOSELY. CASE DISCUSSED WITH THE STAFF. Status: Acute (2) Tracheostomy dependent Assessment and Plan: +VE SECRETIONS COPIOUS F/U SPUTUM CULTURES PULMONARY ON CASE. PULMONARY TOILET. Status: Acute (3) COPD exacerbation Status: Acute (4) Cardiomyopathy Status: Acute (5) HTN (hypertension) Status: Acute (6) Laryngeal cancer Assessment and Plan: PATIENT HAS HISTORY OF LARYNGEAL CA . Status: Chronic
[2018-05-16] MEDS: Vancomycin 750mg/NS 150 ml 150 ML IVPB SCH (12:37)
[2018-05-16] MEDS ORDERED: Ciprofloxacin 400mg/200ml D5W 400 MG/200 ML BAG IVPB SCH (14:00)
--- NOTE | 2018-05-16 14:18 | CP.PCM.HP ---
Past Patient History - Past Medical History & Family History Past Medical History?: Yes - Past Social History Smoking Status: Never Smoked - CARDIAC Hx Congestive Heart Failure: Yes Hx Hypertension: Yes - PULMONARY Hx Asthma: Yes Hx Chronic Obstructive Pulmonary Disease (COPD): Yes Hx Pneumonia: Yes (Lobar) - NEUROLOGICAL Hx Neurological Disorder: Yes Hx Dizziness: Yes - HEENT Hx HEENT Problems: No - RENAL Hx Chronic Kidney Disease: No - ENDOCRINE/METABOLIC Hx Diabetes Mellitus Type 2: Yes - HEMATOLOGICAL/ONCOLOGICAL Hx Blood Disorders: No Other/Comment: sepsis - INTEGUMENTARY Hx Dermatological Problems: No - MUSCULOSKELETAL/RHEUMATOLOGICAL Hx Falls: Yes - GASTROINTESTINAL Hx Gastrointestinal Disorders: Yes - GENITOURINARY/GYNECOLOGICAL Hx Genitourinary Disorders: No Other/Comment: Carcinoma in situ of layrnx - PSYCHIATRIC Hx Substance Use: No - SURGICAL HISTORY Hx Surgeries: Yes Other/Comment: Gastrostomy. tracheostomy - ANESTHESIA Hx Anesthesia: Yes Meds Allergies/Adverse Reactions: Allergies Allergy/AdvReac Type Severity Reaction Status Date / Time No Known Allergies Allergy Verified 05/15/18 18:07 Physical Exam - Constitutional Appears: Well - Head Exam Head Exam: ATRAUMATIC, NORMAL INSPECTION, NORMOCEPHALIC - Eye Exam Eye Exam: EOMI, Normal appearance, PERRL Pupil Exam: NORMAL ACCOMODATION, PERRL - ENT Exam ENT Exam: Mucous Membranes Moist, Normal Exam - Neck Exam Neck exam: Positive for: Normal Inspection - Respiratory Exam Respiratory Exam: Decreased Breath Sounds - Cardiovascular Exam Cardiovascular Exam: REGULAR RHYTHM, +S1, +S2 - GI/Abdominal Exam GI & Abdominal Exam: Diminished Bowel Sounds, Soft - Rectal Exam Rectal Exam: Deferred Results - Vital Signs Recent Vital Signs: Last Vital Signs Temp 98.2 F 05/16/18 07:05 Pulse 96 H 05/16/18 07:50 Resp 18 05/16/18 07:05 BP 123/73 05/16/18 10:03 Pulse Ox 95 05/16/18 07:05 - Labs Result Diagrams: 05/15/18 12:53 05/15/18 12:53 Labs: Laboratory Results - last 24 hr 05/15/18 05/15/18 05/15/18 14:18 17:43 21:20 Puncture Site Lb pCO2 75 H* pO2 50 L HCO3 35.0 H ABG pH 7.36 ABG Total CO2 44.7 H ABG O2 Saturation 88.1 L ABG Base Excess 13.4 H Suraj Test Pos ABG Potassium 3.8 A-a O2 Difference 70.0 Respiratory Index 1.4 Sodium 141.0 Chloride 103.0 Glucose 117 H Lactate 0.6 L Liter Flow 6.0 FiO2 30.0 Crit Value Called To ronel Montesinos Crit Value Called By Meaghan Crit Value Read Back Y Blood Gas Notified Time 1425 POC Glucose (mg/dL) 145 H 173 H Arterial Blood Potassium 3.8 05/16/18 06:31 Puncture Site pCO2 pO2 HCO3 ABG pH ABG Total CO2 ABG O2 Saturation ABG Base Excess Suraj Test ABG Potassium A-a O2 Difference Respiratory Index Sodium Chloride Glucose Lactate Liter Flow FiO2 Crit Value Called To Crit Value Called By Crit Value Read Back Blood Gas Notified Time POC Glucose (mg/dL) 150 H Arterial Blood Potassium
--- NOTE | 2018-05-16 16:40 | CP.PCM.PN ---
Subjective - Date & Time of Evaluation Date of Evaluation: 05/16/18 Time of Evaluation: 10:30 - Subjective Subjective: patient seen and examined Patient is awake and responsive Copious secretions from tracheostomy Afebrile Objective - Vital Signs/Intake and Output Vital Signs (last 24 hours): Temp Pulse Resp BP Pulse Ox 97.9 F 95 H 20 106/63 90 L 05/16/18 15:00 05/16/18 15:00 05/16/18 15:00 05/16/18 15:00 05/16/18 16:23 Intake and Output: 05/16/18 05/16/18 06:59 18:59 Intake Total 500 600 Output Total 750 1000 Balance -250 -400 - Medications Medications: Current Medications Acetaminophen (Tylenol 650mg/20.3ml Solution Ud) 650 mg GT Q4 PRN PRN Reason: Pain, Mild (1-3) Albuterol/Ipratropium (Duoneb 3 Mg/0.5 Mg (3 Ml) Ud) 3 ml INH Q4 [facility] Last Admin: 05/16/18 11:33 Dose: 3 ml Aspirin (Aspirin Chewable) 81 mg PEG DAILY [facility] Last Admin: 05/16/18 09:59 Dose: 81 mg Collagenase (Santyl) 1 gm TOP QSHIFT [facility] Last Admin: 05/16/18 14:36 Dose: 1 applic Diltiazem HCl (Cardizem) 30 mg PEG Q6 [facility] Last Admin: 05/16/18 12:34 Dose: 30 mg Folic Acid (Folic Acid) 1 mg GT DAILY [facility] Last Admin: 05/16/18 09:59 Dose: 1 mg Furosemide (Lasix) 40 mg PEG DAILY [facility] Last Admin: 05/16/18 10:03 Dose: 40 mg Heparin Sodium (Porcine) (Heparin) 5,000 units SC Q12 [facility] Last Admin: 05/16/18 09:59 Dose: 5,000 units Cefepime HCl (Maxipime Iv 1 Gm Premix) 1 gm in 50 mls @ 100 mls/hr IVPB Q12H [facility] PRN Reason: Protocol Last Admin: 05/16/18 08:00 Dose: 100 mls/hr Vancomycin HCl (Vancocin 750mg/Ns 150 Ml) 150 mls @ 150 mls/hr IVPB Q12H [facility] PRN Reason: Protocol Last Admin: 05/16/18 12:37 Dose: 150 mls/hr Ciprofloxacin (Cipro 400mg/200ml Dsw) 400 mg in 200 mls @ 133 mls/hr IVPB Q12 [facility] PRN Reason: Protocol Insulin Aspart (Novolog) 0 unit SC ACHS [facility] PRN Reason: Protocol Last Admin: 05/16/18 11:30 Dose: Not Given Magnesium Hydroxide (Milk Of Magnesia) 30 ml GT HS PRN PRN Reason: Constipation Mupirocin (Bactroban Ointment) 15 gm TOP DAILY [facility] Pantoprazole Sodium (Protonix Inj) 40 mg IVP DAILY [facility] Last Admin: 05/16/18 09:59 Dose: 40 mg Saccharomyces Boulardii (Florastor) 250 mg GT DAILY [facility] Last Admin: 05/16/18 09:59 Dose: 250 mg Tiotropium [place] (Spiriva Inhalation Handihaler Device) 1 inhaler INH DAILY [facility] Vitamin A (Vitamin A & D Oint Ud Foilpak) 0.5 ea TOP BID PRN PRN Reason: Dry skin Last Admin: 05/16/18 09:59 Dose: 0.5 ea - Labs Labs: 05/15/18 12:53 05/15/18 12:53 PT 13.2 SECONDS (9.7-12.2) H 05/15/18 12:53 INR 1.2 05/15/18 12:53 APTT 40 SECONDS (21-34) H 05/15/18 12:53 - Head Exam Head Exam: ATRAUMATIC, NORMOCEPHALIC - Eye Exam Eye Exam: Normal appearance - ENT Exam ENT Exam: Mucous Membranes Moist - Respiratory Exam Respiratory Exam: Rales, Rhonchi - Cardiovascular Exam Cardiovascular Exam: REGULAR RHYTHM - GI/Abdominal Exam GI & Abdominal Exam: Soft, Normal Bowel Sounds - Extremities Exam Extremities Exam: Normal Inspection - Neurological Exam Neurological Exam: Alert Assessment and Plan (1) Acute on chronic respiratory failure with hypoxia and hypercapnia Assessment & Plan: continue IV antibiotics Culture and sensitivity Nebulizer treatment Follow-up ABG Status: Acute (2) COPD exacerbation Status: Acute (3) Cardiomyopathy Status: Acute
[2018-05-16] MEDS: Ciprofloxacin 400mg/200ml D5W 400 MG/200 ML BAG IVPB SCH (21:44)
[2018-05-17] MEDS: Vancomycin 750mg/NS 150 ml 150 ML IVPB SCH ×2 (00:10→12:26)
[2018-05-17] MEDS: Albuterol-Ipratrop 3 mg / 0.5 (3 ml) UD INH SCH ×5 (04:45→19:52)
[2018-05-17] MEDS: Collagenase 250 Units/gm Ointment(30 gm) TOP SCH (05:44)
[2018-05-17] MEDS: (Novolog) Insulin Aspart, Recombinant 100 u/ml 10 ml vial SC SCH ×4 (07:34→21:20)
[2018-05-17] MEDS: Cefepime IV 1 gm in Dextrose 1 GM/50 ML BAG IVPB SCH ×2 (11:07→19:33)
[2018-05-17] MEDS: Saccharomyces Boulardi 250 mg Cap GT SCH (11:08)
[2018-05-17] MEDS: Ciprofloxacin 400mg/200ml D5W 400 MG/200 ML BAG IVPB SCH ×2 (11:09→21:10)
--- NOTE | 2018-05-17 16:42 | CP.PCM.PN ---
Subjective - Date & Time of Evaluation Date of Evaluation: 05/17/18 Time of Evaluation: 08:40 - Subjective Subjective: clinically same Objective - Vital Signs/Intake and Output Vital Signs (last 24 hours): Temp Pulse Resp BP Pulse Ox 98.1 F 93 H 20 123/73 96 05/17/18 15:28 05/17/18 15:28 05/17/18 15:28 05/17/18 15:28 05/17/18 15:28 Intake and Output: 05/17/18 05/17/18 06:59 18:59 Intake Total 750 Output Total 950 Balance -200 - Medications Medications: Current Medications Acetaminophen (Tylenol 650mg/20.3ml Solution Ud) 650 mg GT Q4 PRN PRN Reason: Pain, Mild (1-3) Albuterol/Ipratropium (Duoneb 3 Mg/0.5 Mg (3 Ml) Ud) 3 ml INH Q4 [facility] Last Admin: 05/17/18 11:01 Dose: 3 ml Aspirin (Aspirin Chewable) 81 mg PEG DAILY [facility] Last Admin: 05/17/18 11:08 Dose: 81 mg Diltiazem HCl (Cardizem) 30 mg PEG Q6 [facility] Last Admin: 05/17/18 12:28 Dose: 30 mg Folic Acid (Folic Acid) 1 mg GT DAILY [facility] Last Admin: 05/17/18 11:08 Dose: 1 mg Furosemide (Lasix) 40 mg PEG DAILY [facility] Last Admin: 05/17/18 11:08 Dose: 40 mg Heparin Sodium (Porcine) (Heparin) 5,000 units SC Q12 [facility] Last Admin: 05/17/18 11:07 Dose: 5,000 units Cefepime HCl (Maxipime Iv 1 Gm Premix) 1 gm in 50 mls @ 100 mls/hr IVPB Q12H [facility] PRN Reason: Protocol Last Admin: 05/17/18 11:07 Dose: 100 mls/hr Vancomycin HCl (Vancocin 750mg/Ns 150 Ml) 150 mls @ 150 mls/hr IVPB Q12H [facility] PRN Reason: Protocol Last Admin: 05/17/18 12:26 Dose: 150 mls/hr Ciprofloxacin (Cipro 400mg/200ml Dsw) 400 mg in 200 mls @ 133 mls/hr IVPB Q12 [facility] PRN Reason: Protocol Last Admin: 05/17/18 11:09 Dose: 133 mls/hr Insulin Aspart (Novolog) 0 unit SC ACHS [facility] PRN Reason: Protocol Last Admin: 05/17/18 12:23 Dose: Not Given Magnesium Hydroxide (Milk Of Magnesia) 30 ml GT HS PRN PRN Reason: Constipation Mupirocin (Bactroban Ointment) 15 gm TOP DAILY [facility] Last Admin: 05/17/18 11:58 Dose: 1 applic Pantoprazole Sodium (Protonix Inj) 40 mg IVP DAILY [facility] Last Admin: 05/17/18 11:07 Dose: 40 mg Saccharomyces Boulardii (Florastor) 250 mg GT DAILY [facility] Last Admin: 05/17/18 11:08 Dose: 250 mg Tiotropium [place] (Spiriva Inhalation Handihaler Device) 1 inhaler INH DAILY [facility] Vitamin A (Vitamin A & D Oint Ud Foilpak) 0.5 ea TOP BID PRN PRN Reason: Dry skin Last Admin: 05/16/18 09:59 Dose: 0.5 ea - Labs Labs: 05/15/18 12:53 05/15/18 12:53 PT 13.2 SECONDS (9.7-12.2) H 05/15/18 12:53 INR 1.2 05/15/18 12:53 APTT 40 SECONDS (21-34) H 05/15/18 12:53 - Constitutional Appears: Well - Head Exam Head Exam: ATRAUMATIC, NORMAL INSPECTION, NORMOCEPHALIC - Eye Exam Eye Exam: EOMI, Normal appearance, PERRL Pupil Exam: NORMAL ACCOMODATION, PERRL - ENT Exam ENT Exam: Mucous Membranes Moist, Normal Exam - Respiratory Exam Respiratory Exam: Decreased Breath Sounds - Cardiovascular Exam Cardiovascular Exam: REGULAR RHYTHM, +S1, +S2 - GI/Abdominal Exam GI & Abdominal Exam: Soft, Diminished Bowel Sounds - Rectal Exam Rectal Exam: Deferred
--- NOTE | 2018-05-17 16:55 | CP.PCM.PN ---
Subjective - Date & Time of Evaluation Date of Evaluation: 05/17/18 Time of Evaluation: 12:30 - Subjective Subjective: CC: Low O2 saturation HPI: 70 year old male patient with past medical history of laryngeal cancer, COPD, hypertension and CHF was admitted due to decreased O2 saturation. Patient was examined at bedside. Patient is in no acute distress. Patient is more awake and more responsive and O2 saturation has improved. Patient is afebrile. ROS: Constitutional: Patient denies fever and chills. Cardiovascular: Patient denies chest pain, palpitations Respiratory: Patient denies shortness of breath and cough. Gastrointestinal: Patient denies nausea, vomiting, diarrhea. PMHx: COPD, hypertension, diabetes, CKD Medications: Acetaminophen 650 mg GT Q4 PRN Albuterol/ Ipratropium 3 ml INH Q4 Aspirin 81 mg PEG Daily Cefepime Hcl 1 gm in 50 mls @ 100 mls/ hr IVPB Q12H Cirpofloxacin 400 mg in 200 mls @ 133 mls/ hr IVPB Q12 Collagenase 1 gm TOP Q SHIFT Diltiazem Hcl 30 mg PEG Q6 Folic Acid 1 mg GT Daily Furosemide 40 mg PEG daily Heparin Sodium 5,000 units SC Q12 Magnesium Hydroxide 30 ml GT HS PRN Mupirocin 15 gm TOP Daily Pantoprazole Sodium 40 mg IVP Daily Saccharomyces Boulardii 250 mg GT daily Tiotropium bromide 1 inhaler INH daily Vancomycin Hcl 150 mls @ 150 mls/ hr IVPB Q12H Vitamin A 0.5 ea top BID Physical Exam HEENT: Atraumatic, normocephalic, mucuous membranes moist Repiratory: Clear to auscultation bilaterally. No rales, no wheezing or rhonchi. No use of accessory muscles. Cardiovascular: +S1/ S2, regular rate and rhythm GI: Normal bowel sounds in all 4 quadrants, no tenderness, no distention Extremities: No LE edema Neurological: Alert, awake Assessment: 1 year old male patient with past medical history of laryngeal cancer, COPD, hypertension and CHF; patient presents with consistent acute respiratory failure with hypoxia and hypercapnia. 1. Acute on chronic respiratory failure with hypoxia and hypercapnia Status: Acute -Vancomycin Hcl 150 mls @ 150 mls/ hr IVPB Q12H -Cefepime Hcl 1 gm in 50 mls @ 100 mls/ hr IVPB Q12H - Cirpofloxacin 400 mg in 200 mls @ 133 mls/ hr IVPB Q12 - Albuterol/ Ipratropium 3 ml INH Q4 - Tiotropium bromide 1 inhaler INH daily 2. Hypertension Status: Chronic - Diltiazem Hcl 30 mg PEG Q6 -Furosemide 40 mg PEG daily Objective - Vital Signs/Intake and Output Vital Signs (last 24 hours): Temp Pulse Resp BP Pulse Ox 98.1 F 93 H 20 123/73 96 05/17/18 15:28 05/17/18 15:28 05/17/18 15:28 05/17/18 15:28 05/17/18 15:28 Intake and Output: 05/17/18 05/17/18 06:59 18:59 Intake Total 750 Output Total 950 Balance -200 - Medications Medications: Current Medications Acetaminophen (Tylenol 650mg/20.3ml Solution Ud) 650 mg GT Q4 PRN PRN Reason: Pain, Mild (1-3) Albuterol/Ipratropium (Duoneb 3 Mg/0.5 Mg (3 Ml) Ud) 3 ml INH Q4 [facility] Last Admin: 05/17/18 16:51 Dose: 3 ml Aspirin (Aspirin Chewable) 81 mg PEG DAILY [facility] Last Admin: 05/17/18 11:08 Dose: 81 mg Diltiazem HCl (Cardizem) 30 mg PEG Q6 [facility] Last Admin: 05/17/18 12:28 Dose: 30 mg Folic Acid (Folic Acid) 1 mg GT DAILY [facility] Last Admin: 05/17/18 11:08 Dose: 1 mg Furosemide (Lasix) 40 mg PEG DAILY [facility] Last Admin: 05/17/18 11:08 Dose: 40 mg Heparin Sodium (Porcine) (Heparin) 5,000 units SC Q12 [facility] Last Admin: 05/17/18 11:07 Dose: 5,000 units Cefepime HCl (Maxipime Iv 1 Gm Premix) 1 gm in 50 mls @ 100 mls/hr IVPB Q12H [facility] PRN Reason: Protocol Last Admin: 05/17/18 11:07 Dose: 100 mls/hr Vancomycin HCl (Vancocin 750mg/Ns 150 Ml) 150 mls @ 150 mls/hr IVPB Q12H [facility] PRN Reason: Protocol Last Admin: 05/17/18 12:26 Dose: 150 mls/hr Ciprofloxacin (Cipro 400mg/200ml Dsw) 400 mg in 200 mls @ 133 mls/hr IVPB Q12 [facility] PRN Reason: Protocol Last Admin: 05/17/18 11:09 Dose: 133 mls/hr Insulin Aspart (Novolog) 0 unit SC ACHS [facility] PRN Reason: Protocol Last Admin: 05/17/18 16:54 Dose: Not Given Magnesium Hydroxide (Milk Of Magnesia) 30 ml GT HS PRN PRN Reason: Constipation Mupirocin (Bactroban Ointment) 15 gm TOP DAILY [facility] Last Admin: 05/17/18 11:58 Dose: 1 applic Pantoprazole Sodium (Protonix Inj) 40 mg IVP DAILY [facility] Last Admin: 05/17/18 11:07 Dose: 40 mg Saccharomyces Boulardii (Florastor) 250 mg GT DAILY [facility] Last Admin: 05/17/18 11:08 Dose: 250 mg Tiotropium [place] (Spiriva Inhalation Handihaler Device) 1 inhaler INH DAILY [facility] Vitamin A (Vitamin A & D Oint Ud Foilpak) 0.5 ea TOP BID PRN PRN Reason: Dry skin Last Admin: 05/16/18 09:59 Dose: 0.5 ea - Labs Labs: 05/15/18 12:53 05/15/18 12:53 PT 13.2 SECONDS (9.7-12.2) H 05/15/18 12:53 INR 1.2 05/15/18 12:53 APTT 40 SECONDS (21-34) H 05/15/18 12:53 Assessment and Plan (1) Acute on chronic respiratory failure with hypoxia and hypercapnia Status: Acute (2) COPD exacerbation Status: Acute (3) Cardiomyopathy Status: Acute
[2018-05-17] MEDS: Vitamins A & D Oint UD Foilpak TOP PRN (21:10)
--- NOTE | 2018-05-17 21:10 | CARD ---
APPROVED REPORT EKG Measurement Heart [id number] <Conclusion> Sinus tachycardia Septal infarct, age undetermined Abnormal ECG
--- NOTE | 2018-05-17 23:42 | CP.PCM.PN ---
Subjective - Date & Time of Evaluation Date of Evaluation: 05/17/18 Time of Evaluation: 23:42 - Subjective Subjective: CHIEF COMPLAINTS TODAY : AFEBRILE,MORE AWAKE AND RESPONSIVE TRACHEOSTOMY IN PLACE. +VE SECRETIONS. picc LINE REMOVED RIGHT UPPER ARM ROS. HEENT : N. Resp : No cough, wheezing ,pleuritic CP ,or hemoptysis Cardio : No anginal CP, PND, orthopnea, palpitation GI : No abd.pain, n/v ,diarrhea or GI bleeding . 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 Musculoskel : No joint swelling , Derm : +VE SACRAL DECUBITUS ULCERS Psych : Normal affect. Ext : No swelling ,calf pain PE. Pt. is alert awake in no distress. V.S As noted in the chart Head ,ear nose,throat and eyes : Normal.+VE TRACHEOSTOMY IN PLACE Neck : Supple with normal carotids. Lungs: BILATERAL RHONCHI Heart : S1 & S2 normal with S4. No murmur. Abd : Soft non tender with normal bowel sounds. +VE GT IN PLACE Neuro : Moves all ext. with no localized deficit. Ext : No edema with intact pulses.Non tender calves mULTI-pODUS BOOTS ON B/L Derm : No rashes or decubitus ulcer. LABS/RADIOLOGY: URINE CULTURE +VE YEAST - +VE FOLYS ? ASYMPTOMATIC/COLONIZATION SACRAL WOUND CULTURE +VE GNR/CORYNEBACTERIUM SPECIES/ COLONIZATION TRACH SPUTUM--P ASSESSMENT/PLAN : CONTINUE iv CEFEPIME 1 G EVERY 12 HOURLY 05/15/18 cONTINUE iv VANCOMYCIN 750 EVERY 12 HOURLY 05/15/18. mONITOR vANCO TROUGH LEVEL IN A.M. aND MAINTAIN BETWEEN 10 AND 20. cONTINUE cIPRO 400 EVERY 12 HOURLY. 05/16/18. aWAIT CULTURES TO DE-ESCALATE iv ANTIBIOTICS AND ADJUST. lOCAL WOUND CARE PER pmd. BLOOD WORKS FOR A.M. Objective - Vital Signs/Intake and Output Vital Signs (last 24 hours): Temp Pulse Resp BP Pulse Ox 98.1 F 93 H 20 123/73 96 05/17/18 15:28 05/17/18 19:48 05/17/18 15:28 05/17/18 15:28 05/17/18 15:28 Intake and Output: 05/17/18 05/18/18 18:59 06:59 Intake Total 650 Output Total 500 Balance 150 - Medications Medications: Current Medications Acetaminophen (Tylenol 650mg/20.3ml Solution Ud) 650 mg GT Q4 PRN PRN Reason: Pain, Mild (1-3) Albuterol/Ipratropium (Duoneb 3 Mg/0.5 Mg (3 Ml) Ud) 3 ml INH Q4 [facility] Last Admin: 05/17/18 19:52 Dose: 3 ml Aspirin (Aspirin Chewable) 81 mg PEG DAILY [facility] Last Admin: 05/17/18 11:08 Dose: 81 mg Diltiazem HCl (Cardizem) 30 mg PEG Q6 [facility] Last Admin: 05/17/18 17:42 Dose: 30 mg Folic Acid (Folic Acid) 1 mg GT DAILY [facility] Last Admin: 05/17/18 11:08 Dose: 1 mg Furosemide (Lasix) 40 mg PEG DAILY [facility] Last Admin: 05/17/18 11:08 Dose: 40 mg Heparin Sodium (Porcine) (Heparin) 5,000 units SC Q12 [facility] Last Admin: 05/17/18 21:10 Dose: 5,000 units Cefepime HCl (Maxipime Iv 1 Gm Premix) 1 gm in 50 mls @ 100 mls/hr IVPB Q12H [facility] PRN Reason: Protocol Last Admin: 05/17/18 19:33 Dose: 100 mls/hr Vancomycin HCl (Vancocin 750mg/Ns 150 Ml) 150 mls @ 150 mls/hr IVPB Q12H [facility] PRN Reason: Protocol Last Admin: 05/17/18 12:26 Dose: 150 mls/hr Ciprofloxacin (Cipro 400mg/200ml Dsw) 400 mg in 200 mls @ 133 mls/hr IVPB Q12 [facility] PRN Reason: Protocol Last Admin: 05/17/18 21:10 Dose: 133 mls/hr Insulin Aspart (Novolog) 0 unit SC ACHS [facility] PRN Reason: Protocol Last Admin: 05/17/18 21:20 Dose: Not Given Magnesium Hydroxide (Milk Of Magnesia) 30 ml GT HS PRN PRN Reason: Constipation Mupirocin (Bactroban Ointment) 15 gm TOP DAILY [facility] Last Admin: 05/17/18 11:58 Dose: 1 applic Pantoprazole Sodium (Protonix Inj) 40 mg IVP DAILY [facility] Last Admin: 05/17/18 11:07 Dose: 40 mg Saccharomyces Boulardii (Florastor) 250 mg GT DAILY [facility] Last Admin: 05/17/18 11:08 Dose: 250 mg Tiotropium [place] (Spiriva Inhalation Handihaler Device) 1 inhaler INH DAILY [facility] Vitamin A (Vitamin A & D Oint Ud Foilpak) 0.5 ea TOP BID PRN PRN Reason: Dry skin Last Admin: 05/17/18 21:10 Dose: 0.5 ea - Labs Labs: 05/15/18 12:53 05/15/18 12:53 PT 13.2 SECONDS (9.7-12.2) H 05/15/18 12:53 INR 1.2 05/15/18 12:53 APTT 40 SECONDS (21-34) H 05/15/18 12:53
[2018-05-18] MEDS: Albuterol-Ipratrop 3 mg / 0.5 (3 ml) UD INH SCH ×6 (00:28→19:58)
[2018-05-18] MEDS: Vancomycin 750mg/NS 150 ml 150 ML IVPB SCH (01:39)
[2018-05-18] MEDS: (Novolog) Insulin Aspart, Recombinant 100 u/ml 10 ml vial SC SCH ×4 (07:47→21:45)
[2018-05-18 08:17] LABS: BASO % 0.5 % (0.0-2.0); EOS # 0.4 K/uL (0.0-0.7); HEMOGLOBIN 9.3 g/dL (12.0-18.0); LYMPH % 16.3 % (20.0-40.0); MEAN CELL VOLUME 89.2 fL (80.0-94.0); MEAN CORPUSCULAR HEMOGLOBIN 28.6 pg (27.0-31.0); MEAN CORPUSCULAR HGB CONC 32.1 g/dL (33.0-37.0); MEAN PLATELET VOLUME 7.9 fL (7.2-11.7); MONO # 0.6 K/uL (0.0-0.8); MONO % 10.2 % (0.0-10.0); NEUT # 3.9 K/uL (1.8-7.0); RBC 3.25 Mil/uL (4.40-5.90); WHITE BLOOD COUNT 5.9 K/uL (4.8-10.8)
[2018-05-18] MEDS: Cefepime IV 1 gm in Dextrose 1 GM/50 ML BAG IVPB SCH (08:33)
[2018-05-18 08:42] LABS: BLOOD UREA NITROGEN 26 mg/dL (9-20); GFR AFRICAN-AMERICAN > 60; GFR NON-AFRICAN AMERICAN > 60
[2018-05-18] MEDS: Saccharomyces Boulardi 250 mg Cap GT SCH (10:37)
[2018-05-18] MEDS: Vitamins A & D Oint UD Foilpak TOP PRN (10:37)
[2018-05-18] MEDS: Ciprofloxacin 400mg/200ml D5W 400 MG/200 ML BAG IVPB SCH (10:41)
--- NOTE | 2018-05-18 12:44 | CP.PCM.PN ---
Subjective - Date & Time of Evaluation Date of Evaluation: 05/18/18 Time of Evaluation: 09:40 - Subjective Subjective: Low O2 saturation HPI: Patient was examined at bedside. Patient is in no acute distress. Patient is more awake and more responsive. Patient is afebrile. Patient has copious secretions from tracheotomy. ROS: Constitutional: Patient denies fever and chills. Cardiovascular: Patient denies chest pain, palpitations Respiratory: Patient denies shortness of breath and cough. Gastrointestinal: Patient denies nausea, vomiting, diarrhea. Physical Exam HEENT: Atraumatic, normocephalic, mucuous membranes moist Repiratory: Clear to auscultation bilaterally. No rales, no wheezing or rhonchi. No use of accessory muscles. Cardiovascular: +S1/ S2, regular rate and rhythm GI: Normal bowel sounds in all 4 quadrants, no tenderness, no distention Extremities: No LE edema Neurological: Alert, awake Assessment: 70 year old male patient with past medical history of laryngeal cancer, COPD, hypertension and CHF; patient presents with consistent acute respiratory failure with hypoxia and hypercapnia. 1. Acute on chronic respiratory failure with hypoxia and hypercapnia Status: Acute -Vancomycin Hcl 150 mls @ 150 mls/ hr IVPB Q12H -Cefepime Hcl 1 gm in 50 mls @ 100 mls/ hr IVPB Q12H - Cirpofloxacin 400 mg in 200 mls @ 133 mls/ hr IVPB Q12 - Albuterol/ Ipratropium 3 ml INH Q4 - Tiotropium bromide 1 inhaler INH daily 2. Hypertension Status: Chronic - Diltiazem Hcl 30 mg PEG Q6 -Furosemide 40 mg PEG daily Objective - Vital Signs/Intake and Output Vital Signs (last 24 hours): Temp Pulse Resp BP Pulse Ox 98.1 F 104 H 20 114/68 98 05/18/18 08:14 05/18/18 08:14 05/18/18 08:14 05/18/18 10:40 05/18/18 08:14 Intake and Output: 05/18/18 05/18/18 06:59 18:59 Intake Total 650 Output Total 900 Balance -250 - Medications Medications: Current Medications Acetaminophen (Tylenol 650mg/20.3ml Solution Ud) 650 mg GT Q4 PRN PRN Reason: Pain, Mild (1-3) Albuterol/Ipratropium (Duoneb 3 Mg/0.5 Mg (3 Ml) Ud) 3 ml INH Q4 [facility] Last Admin: 05/18/18 11:11 Dose: 3 ml Aspirin (Aspirin Chewable) 81 mg PEG DAILY [facility] Last Admin: 05/18/18 10:37 Dose: 81 mg Diltiazem HCl (Cardizem) 30 mg PEG Q6 [facility] Last Admin: 05/18/18 06:35 Dose: Not Given Folic Acid (Folic Acid) 1 mg GT DAILY [facility] Last Admin: 05/18/18 10:37 Dose: 1 mg Furosemide (Lasix) 40 mg PEG DAILY [facility] Last Admin: 05/18/18 10:40 Dose: 40 mg Heparin Sodium (Porcine) (Heparin) 5,000 units SC Q12 [facility] Last Admin: 05/18/18 10:38 Dose: 5,000 units Meropenem 500 mg/ Sodium (Chloride) 100 mls @ 100 mls/hr IVPB Q8 [facility] PRN Reason: Protocol Amikacin Sulfate 500 mg/ (Sodium Chloride) 102 mls @ 204 mls/hr IVPB ONCE ONE PRN Reason: Protocol Stop: 05/18/18 13:29 Amikacin Sulfate 250 mg/ (Sodium Chloride) 101 mls @ 202 mls/hr IV Q24H [facility] Stop: 05/21/18 13:29 Insulin Aspart (Novolog) 0 unit SC ACHS [facility] PRN Reason: Protocol Last Admin: 05/18/18 12:03 Dose: Not Given Magnesium Hydroxide (Milk Of Magnesia) 30 ml GT HS PRN PRN Reason: Constipation Mupirocin (Bactroban Ointment) 15 gm TOP DAILY [facility] Last Admin: 05/17/18 11:58 Dose: 1 applic Pantoprazole Sodium (Protonix Inj) 40 mg IVP DAILY [facility] Last Admin: 05/18/18 10:37 Dose: 40 mg Saccharomyces Boulardii (Florastor) 250 mg GT DAILY [facility] Last Admin: 05/18/18 10:37 Dose: 250 mg Tiotropium [place] (Spiriva Inhalation Handihaler Device) 1 inhaler INH DAILY [facility] Vitamin A (Vitamin A & D Oint Ud Foilpak) 0.5 ea TOP BID PRN PRN Reason: Dry skin Last Admin: 05/18/18 10:37 Dose: 0.5 ea - Labs Labs: 05/18/18 08:07 05/18/18 08:07 PT 13.2 SECONDS (9.7-12.2) H 05/15/18 12:53 INR 1.2 05/15/18 12:53 APTT 40 SECONDS (21-34) H 05/15/18 12:53 Assessment and Plan (1) Acute on chronic respiratory failure with hypoxia and hypercapnia Status: Acute (2) COPD exacerbation Status: Acute (3) Cardiomyopathy Status: Acute
[2018-05-18] MEDS: Meropenem 500 MG in Sodium Chloride 0.9% 100 ML IVPB SCH ×2 (14:40→22:00)
--- NOTE | 2018-05-18 19:17 | CP.PCM.PN ---
Subjective - Date & Time of Evaluation Date of Evaluation: 05/18/18 Time of Evaluation: 08:20 - Subjective Subjective: clinically same Objective - Vital Signs/Intake and Output Vital Signs (last 24 hours): Temp Pulse Resp BP Pulse Ox 97.8 F 92 H 20 115/74 100 05/18/18 15:56 05/18/18 17:59 05/18/18 15:56 05/18/18 15:56 05/18/18 15:56 Intake and Output: 05/18/18 05/19/18 18:59 06:59 Intake Total 1055 Output Total 450 Balance 605 - Medications Medications: Current Medications Acetaminophen (Tylenol 650mg/20.3ml Solution Ud) 650 mg GT Q4 PRN PRN Reason: Pain, Mild (1-3) Albuterol/Ipratropium (Duoneb 3 Mg/0.5 Mg (3 Ml) Ud) 3 ml INH Q4 [facility]S [facility] Last Admin: 05/18/18 16:11 Dose: 3 ml Aspirin (Aspirin Chewable) 81 mg PEG DAILY [facility] Last Admin: 05/18/18 10:37 Dose: 81 mg Diltiazem HCl (Cardizem) 30 mg PEG Q6 [facility] Last Admin: 05/18/18 17:27 Dose: 30 mg Folic Acid (Folic Acid) 1 mg GT DAILY [facility] 234 [facility]S [facility] Last Admin: 05/18/18 10:37 Dose: 1 mg Furosemide (Lasix) 40 mg PEG DAILY [facility] 234 [facility]S [facility] Last Admin: 05/18/18 10:40 Dose: 40 mg Heparin Sodium (Porcine) (Heparin) 5,000 units SC Q12 [facility] Last Admin: 05/18/18 10:38 Dose: 5,000 units Meropenem 500 mg/ Sodium (Chloride) 100 mls @ 100 mls/hr IVPB Q8 [facility] PRN Reason: Protocol Last Admin: 05/18/18 14:40 Dose: 100 mls/hr Amikacin Sulfate 250 mg/ (Sodium Chloride) 101 mls @ 202 mls/hr IV Q24H [facility]S INCLUDE 234 BEDS AT [facility] Stop: 05/21/18 13:29 Insulin Aspart (Novolog) 0 unit SC ACHS [facility] PRN Reason: Protocol Last Admin: 05/18/18 16:59 Dose: Not Given Magnesium Hydroxide (Milk Of Magnesia) 30 ml GT HS PRN PRN Reason: Constipation Mupirocin (Bactroban Ointment) 15 gm TOP DAILY [facility] Last Admin: 05/18/18 10:37 Dose: 1 applic Pantoprazole Sodium (Protonix Inj) 40 mg IVP DAILY [facility] 234 [facility] Last Admin: 05/18/18 10:37 Dose: 40 mg Saccharomyces Boulardii (Florastor) 250 mg GT DAILY [facility] 234 B[facility]S [facility] Last Admin: 05/18/18 10:37 Dose: 250 mg Tiotropium [place] (Spiriva Inhalation Handihaler Device) 1 inhaler INH DAILY [facility] 234 BEDS [facility] Vitamin A (Vitamin A & D Oint Ud Foilpak) 0.5 ea TOP BID PRN PRN Reason: Dry skin Last Admin: 05/18/18 10:37 Dose: 0.5 ea - Labs Labs: 05/18/18 08:07 05/18/18 08:07 PT 13.2 SECONDS (9.7-12.2) H 05/15/18 12:53 INR 1.2 05/15/18 12:53 APTT 40 SECONDS (21-34) H 05/15/18 12:53 - Constitutional Appears: Well - Head Exam Head Exam: ATRAUMATIC, NORMAL INSPECTION, NORMOCEPHALIC - Eye Exam Eye Exam: EOMI, Normal appearance, PERRL Pupil Exam: NORMAL ACCOMODATION, PERRL - ENT Exam ENT Exam: Mucous Membranes Moist, Normal Exam - Neck Exam Neck Exam: Full ROM, Normal Inspection. absent: Lymphadenopathy - Respiratory Exam Respiratory Exam: Decreased Breath Sounds - Cardiovascular Exam Cardiovascular Exam: REGULAR RHYTHM, +S1, +S2 - GI/Abdominal Exam GI & Abdominal Exam: Soft, Diminished Bowel Sounds - Rectal Exam Rectal Exam: Deferred Assessment and Plan - Assessment and Plan (Free Text) Plan: Poor prognosis we will speak to the family Follow-up ID follow-up Feeding as ordered Continue mucousy Continue dressing with the mupirocin Continue Merrem Continue other medications Continue vancomycin
--- NOTE | 2018-05-18 20:29 | CP.PCM.PN ---
Subjective - Date & Time of Evaluation Date of Evaluation: 05/18/18 Time of Evaluation: 20:28 - Subjective Subjective: CHIEF COMPLAINTS TODAY : AFEBRILE, MORE AWAKE AND RESPONSIVE TRACHEOSTOMY IN PLACE. +VE SECRETIONS. ROS. HEENT : N. Resp : No cough, wheezing ,pleuritic CP ,or hemoptysis Cardio : No anginal CP, PND, orthopnea, palpitation GI : No abd.pain, n/v ,diarrhea or GI bleeding . TECHNICAL SERVICES COORDINATOR : No headache, vertigo, focal deficit. Musculoskel : No joint swelling , Derm : +VE SACRAL DECUBITUS ULCERS Psych : Normal affect. Ext : No swelling ,calf pain PE. Pt. is alert awake in no distress. V.S As noted in the chart Head ,ear nose,throat and eyes : Normal.+VE TRACHEOSTOMY IN PLACE Neck : Supple with normal carotids. Lungs: BILATERAL RHONCHI Heart : S1 & S2 normal with S4. No murmur. Abd : Soft non tender with normal bowel sounds. +VE GT IN PLACE Neuro : Moves all ext. with no localized deficit. Ext : No edema with intact pulses.Non tender calves mULTI-pODUS BOOTS ON B/L Derm : +VE decubitus ulcer. LABS/RADIOLOGY: URINE CULTURE +VE YEAST - +VE FOLYS ? ASYMPTOMATIC/COLONIZATION SACRAL WOUND CULTURE +VE GNR/CORYNEBACTERIUM SPECIES/ COLONIZATION TRACH SPUTUM-- GNR ASSESSMENT/PLAN : START IV MERREM 500MG IV Q8HELY 05/18/18 ADD IV AMIKACIN 500MG IVPB STAT DOSE 05/18/18 F/U AMIKACIN 250MG IV Q D DAILY FOR SYNERGY X 3DAYS-05/19, 05/20, 05/21/18 DC iv CEFEPIME 1 G EVERY 12 HOURLY 05/15/18 DC iv VANCOMYCIN 750 EVERY 12 HOURLY 05/15/18. DC CIPRO 400 EVERY 12 HOURLY. 05/16/18. aWAIT FINAL CULTURES TO DE-ESCALATE iv ANTIBIOTICS AND ADJUST. lOCAL WOUND CARE PER pmd. PULMONARY TOILET PER PULMONARY. Objective - Vital Signs/Intake and Output Vital Signs (last 24 hours): Temp Pulse Resp BP Pulse Ox 97.8 F 92 H 20 115/74 100 05/18/18 15:56 05/18/18 17:59 05/18/18 15:56 05/18/18 15:56 05/18/18 15:56 Intake and Output: 05/18/18 07 18:59 06:59 Intake Total 1055 Output Total 450 Balance 605 - Medications Medications: Current Medications Acetaminophen (Tylenol 650mg/20.3ml Solution Ud) 650 mg GT Q4 PRN PRN Reason: Pain, Mild (1-3) Albuterol/Ipratropium (Duoneb 3 Mg/0.5 Mg (3 Ml) Ud) 3 ml INH Q4 [facility] Last Admin: 05/18/18 19:58 Dose: 3 ml Aspirin (Aspirin Chewable) 81 mg PEG DAILY [facility] Last Admin: 05/18/18 10:37 Dose: 81 mg Diltiazem HCl (Cardizem) 30 mg PEG Q6 [facility] Last Admin: 05/18/18 17:27 Dose: 30 mg Folic Acid (Folic Acid) 1 mg GT DAILY [facility] Last Admin: 05/18/18 10:37 Dose: 1 mg Furosemide (Lasix) 40 mg PEG DAILY [facility] Last Admin: 05/18/18 10:40 Dose: 40 mg Heparin Sodium (Porcine) (Heparin) 5,000 units SC Q12 [facility] Last Admin: 05/18/18 10:38 Dose: 5,000 units Meropenem 500 mg/ Sodium (Chloride) 100 mls @ 100 mls/hr IVPB Q8 [facility] PRN Reason: Protocol Last Admin: 05/18/18 14:40 Dose: 100 mls/hr Amikacin Sulfate 250 mg/ (Sodium Chloride) 101 mls @ 202 mls/hr IV Q24H [facility] Stop: 05/21/18 13:29 Insulin Aspart (Novolog) 0 unit SC ACHS [facility] PRN Reason: Protocol Last Admin: 05/18/18 16:59 Dose: Not Given Magnesium Hydroxide (Milk Of Magnesia) 30 ml GT HS PRN PRN Reason: Constipation Mupirocin (Bactroban Ointment) 15 gm TOP DAILY [facility] Last Admin: 05/18/18 10:37 Dose: 1 applic Pantoprazole Sodium (Protonix Inj) 40 mg IVP DAILY [facility] Last Admin: 05/18/18 10:37 Dose: 40 mg Saccharomyces Boulardii (Florastor) 250 mg GT DAILY [facility] Last Admin: 05/18/18 10:37 Dose: 250 mg Tiotropium Lewellen (Spiriva Inhalation Handihaler Device) 1 inhaler INH DAILY [facility] Vitamin A (Vitamin A & D Oint Ud Foilpak) 0.5 ea TOP BID PRN PRN Reason: Dry skin Last Admin: 05/18/18 10:37 Dose: 0.5 ea - Labs Labs: 05/18/18 08:07 05/18/18 08:07 PT 13.2 SECONDS (9.7-12.2) H 05/15/18 12:53 INR 1.2 05/15/18 12:53 APTT 40 SECONDS (21-34) H 05/15/18 12:53 Assessment and Plan (1) Acute hypoxemic respiratory failure Status: Acute (2) Tracheostomy dependent Status: Acute (3) COPD exacerbation Status: Acute (4) Cardiomyopathy Status: Acute (5) Laryngeal cancer Status: Chronic
[2018-05-19] MEDS: Albuterol-Ipratrop 3 mg / 0.5 (3 ml) UD INH SCH ×6 (00:43→20:10)
[2018-05-19] MEDS: Meropenem 500 MG in Sodium Chloride 0.9% 100 ML IVPB SCH ×3 (06:05→21:32)
[2018-05-19] MEDS: (Novolog) Insulin Aspart, Recombinant 100 u/ml 10 ml vial SC SCH ×4 (08:00→21:29)
[2018-05-19] MEDS: Saccharomyces Boulardi 250 mg Cap GT SCH (10:29)
[2018-05-19] MEDS: Vitamins A & D Oint UD Foilpak TOP PRN (10:29)
[2018-05-19] MEDS: Tiotropium 18 mcg Cap For Inhalation INH SCH (10:58)
--- NOTE | 2018-05-19 20:31 | CP.PCM.PN ---
Subjective - Date & Time of Evaluation Date of Evaluation: 05/19/18 Time of Evaluation: 08:20 - Subjective Subjective: clinically same Objective - Vital Signs/Intake and Output Vital Signs (last 24 hours): Temp Pulse Resp BP Pulse Ox 98.3 F 102 H 18 100/66 96 05/19/18 16:00 05/19/18 19:29 05/19/18 16:00 05/19/18 16:00 05/19/18 16:00 Intake and Output: 05/19/18 05/20/18 18:59 06:59 Intake Total 200 60 Output Total 1000 Balance -800 60 - Medications Medications: Current Medications Acetaminophen (Tylenol 650mg/20.3ml Solution Ud) 650 mg GT Q4 PRN PRN Reason: Pain, Mild (1-3) Albuterol/Ipratropium (Duoneb 3 Mg/0.5 Mg (3 Ml) Ud) 3 ml INH Q4 [facility] Last Admin: 05/19/18 20:10 Dose: 3 ml Aspirin (Aspirin Chewable) 81 mg PEG DAILY [facility] Last Admin: 05/19/18 10:29 Dose: 81 mg Diltiazem HCl (Cardizem) 30 mg PEG Q6 [facility] Last Admin: 05/19/18 17:31 Dose: 30 mg Folic Acid (Folic Acid) 1 mg GT DAILY [facility] Last Admin: 05/19/18 10:29 Dose: 1 mg Furosemide (Lasix) 40 mg PEG DAILY [facility] Last Admin: 05/19/18 10:34 Dose: 40 mg Meropenem 500 mg/ Sodium (Chloride) 100 mls @ 100 mls/hr IVPB Q8 [facility] PRN Reason: Protocol Last Admin: 05/19/18 14:00 Dose: 100 mls/hr Amikacin Sulfate 250 mg/ (Sodium Chloride) 101 mls @ 202 mls/hr IV Q24H [facility] Stop: 05/21/18 13:29 Last Admin: 05/19/18 13:30 Dose: 202 mls/hr Insulin Aspart (Novolog) 0 unit SC ACHS [facility] PRN Reason: Protocol Last Admin: 05/19/18 16:45 Dose: Not Given Magnesium Hydroxide (Milk Of Magnesia) 30 ml GT HS PRN PRN Reason: Constipation Mupirocin (Bactroban Ointment) 15 gm TOP DAILY [facility] Last Admin: 05/19/18 10:30 Dose: 1 applic Pantoprazole Sodium (Protonix Inj) 40 mg IVP DAILY [facility] Last Admin: 05/19/18 10:29 Dose: 40 mg Saccharomyces Boulardii (Florastor) 250 mg GT DAILY [facility] Last Admin: 05/19/18 10:29 Dose: 250 mg Tiotropium [place] (Spiriva) 18 mcg INH RQ24 [facility] Last Admin: 05/19/18 10:58 Dose: Not Given Vitamin A (Vitamin A & D Oint Ud Foilpak) 0.5 ea TOP BID PRN PRN Reason: Dry skin Last Admin: 05/19/18 10:29 Dose: 0.5 ea - Labs Labs: 05/18/18 08:07 05/18/18 08:07 PT 13.2 SECONDS (9.7-12.2) H 05/15/18 12:53 INR 1.2 05/15/18 12:53 APTT 40 SECONDS (21-34) H 05/15/18 12:53 - Constitutional Appears: Well - Head Exam Head Exam: ATRAUMATIC, NORMAL INSPECTION, NORMOCEPHALIC - Eye Exam Eye Exam: EOMI, Normal appearance, PERRL Pupil Exam: NORMAL ACCOMODATION, PERRL - ENT Exam ENT Exam: Mucous Membranes Moist, Normal Exam - Neck Exam Neck Exam: Full ROM, Normal Inspection. absent: Lymphadenopathy - Respiratory Exam Respiratory Exam: Decreased Breath Sounds - Cardiovascular Exam Cardiovascular Exam: REGULAR RHYTHM, +S1, +S2 - GI/Abdominal Exam GI & Abdominal Exam: Soft, Diminished Bowel Sounds - Rectal Exam Rectal Exam: Deferred Assessment and Plan - Assessment and Plan (Free Text) Plan: Poor prognosis IV amikacin IV meropenem ID consult Pulmonary consult [place] As ordered Feeding as ordered
--- NOTE | 2018-05-19 22:21 | CP.PCM.PN ---
Subjective - Date & Time of Evaluation Date of Evaluation: 05/19/18 Time of Evaluation: 18:00 - Subjective Subjective: Pulmonary Follow up, Covering Dr. Jose The Patient was seen and examined at the bedside, Medical records reviewed and management issues were discussed and formulated with the house staff. Events reviewed Awake, comfortable, NAD Breathing unlabored, O2 sat 98% on Trach collar with 40% FIO2 Denies any chest pain, SOB or Palpitations Afebrile, NSR on the monitor Objective - Vital Signs/Intake and Output Vital Signs (last 24 hours): Temp Pulse Resp BP Pulse Ox 98.1 F 91 H 18 109/69 96 05/19/18 22:00 05/19/18 22:00 05/19/18 22:00 05/19/18 22:00 05/19/18 16:00 Intake and Output: 05/19/18 05/20/18 18:59 06:59 Intake Total 200 160 Output Total 1000 Balance -800 160 - Medications Medications: Current Medications Acetaminophen (Tylenol 650mg/20.3ml Solution Ud) 650 mg GT Q4 PRN PRN Reason: Pain, Mild (1-3) Albuterol/Ipratropium (Duoneb 3 Mg/0.5 Mg (3 Ml) Ud) 3 ml INH Q4 [facility] Last Admin: 05/19/18 20:10 Dose: 3 ml Aspirin (Aspirin Chewable) 81 mg PEG DAILY [facility] Last Admin: 05/19/18 10:29 Dose: 81 mg Diltiazem HCl (Cardizem) 30 mg PEG Q6 [facility] Last Admin: 05/19/18 17:31 Dose: 30 mg Folic Acid (Folic Acid) 1 mg GT DAILY [facility] Last Admin: 05/19/18 10:29 Dose: 1 mg Furosemide (Lasix) 40 mg PEG DAILY [facility] Last Admin: 05/19/18 10:34 Dose: 40 mg Meropenem 500 mg/ Sodium (Chloride) 100 mls @ 100 mls/hr IVPB Q8 [facility] PRN Reason: Protocol Last Admin: 05/19/18 21:32 Dose: 100 mls/hr Amikacin Sulfate 250 mg/ (Sodium Chloride) 101 mls @ 202 mls/hr IV Q24H [facility] Stop: 05/21/18 13:29 Last Admin: 05/19/18 13:30 Dose: 202 mls/hr Insulin Aspart (Novolog) 0 unit SC ACHS [facility] PRN Reason: Protocol Last Admin: 05/19/18 21:29 Dose: Not Given Magnesium Hydroxide (Milk Of Magnesia) 30 ml GT HS PRN PRN Reason: Constipation Mupirocin (Bactroban Ointment) 15 gm TOP DAILY [facility] Last Admin: 05/19/18 10:30 Dose: 1 applic Pantoprazole Sodium (Protonix Inj) 40 mg IVP DAILY [facility] Last Admin: 05/19/18 10:29 Dose: 40 mg Saccharomyces Boulardii (Florastor) 250 mg GT DAILY [facility] Last Admin: 05/19/18 10:29 Dose: 250 mg Tiotropium [place] (Spiriva) 18 mcg INH RQ24 [facility] Last Admin: 05/19/18 10:58 Dose: Not Given Vitamin A (Vitamin A & D Oint Ud Foilpak) 0.5 ea TOP BID PRN PRN Reason: Dry skin Last Admin: 05/19/18 10:29 Dose: 0.5 ea - Labs Labs: 05/18/18 08:07 05/18/18 08:07 PT 13.2 SECONDS (9.7-12.2) H 05/15/18 12:53 INR 1.2 05/15/18 12:53 APTT 40 SECONDS (21-34) H 05/15/18 12:53 - Constitutional Appears: Well, Non-toxic, No Acute Distress - Head Exam Head Exam: ATRAUMATIC, NORMAL INSPECTION - Eye Exam Eye Exam: EOMI, Normal appearance. absent: Conjunctival injection - ENT Exam ENT Exam: Mucous Membranes Moist, Normal Exam - Neck Exam Neck Exam: Full ROM. absent: Lymphadenopathy, Meningismus - Respiratory Exam Respiratory Exam: Decreased Breath Sounds, Clear to Ausculation Bilateral. absent: Accessory Muscle Use, Chest Wall Tenderness, Prolonged Expiratory Phase , Rales, Rhonchi, Wheezes, Respiratory Distress - Cardiovascular Exam Cardiovascular Exam: REGULAR RHYTHM, RRR, +S1, +S2. absent: Bradycardia, Tachycardia, JVD - GI/Abdominal Exam GI & Abdominal Exam: Soft, Normal Bowel Sounds. absent: Distended, Firm, Guarding, Rigid - Extremities Exam Extremities Exam: Normal Capillary Refill, Normal Inspection. absent: Calf Tenderness, Joint Swelling - Neurological Exam Neurological Exam: Alert, Awake. absent: Altered, Motor Sensory Deficit Assessment and Plan (1) COPD exacerbation Status: Acute (2) Tracheostomy dependent Status: Acute (3) Acute hypercapnic respiratory failure Status: Acute - Assessment and Plan (Free Text) Assessment: -Albuterol/ Ipratropium 3 ml INH Q4 -Tiotropium bromide 1 inhaler INH daily -Diuresis with Furosemide (Lasix) 40 mg PEG DAILY [facility] -Meropenem 500 mg IVPB Q8 [facility] -Amikacin Sulfate 250 mg IV Q24H [facility]
--- NOTE | 2018-05-19 23:40 | CP.PCM.PN ---
Subjective - Date & Time of Evaluation Date of Evaluation: 05/19/18 Time of Evaluation: 23:39 - Subjective Subjective: CHIEF COMPLAINTS TODAY : AFEBRILE, AWAKE AND RESPONSIVE TRACHEOSTOMY IN PLACE. +VE SECRETIONS. ROS. HEENT : N. Resp : No cough, wheezing ,pleuritic CP ,or hemoptysis Cardio : No anginal CP, PND, orthopnea, palpitation GI : No abd.pain, n/v ,diarrhea or GI bleeding . TAIL TRIMMER : No headache, vertigo, focal deficit. Musculoskel : No joint swelling , Derm : +VE SACRAL DECUBITUS ULCERS Psych : Normal affect. Ext : No swelling ,calf pain PE. Pt. is alert awake in no distress. V.S As noted in the chart Head ,ear nose,throat and eyes : Normal.+VE TRACHEOSTOMY IN PLACE Neck : Supple with normal carotids. Lungs: BILATERAL RHONCHI Heart : S1 & S2 normal with S4. No murmur. Abd : Soft non tender with normal bowel sounds. +VE GT IN PLACE Neuro : Moves all ext. with no localized deficit. Ext : No edema with intact pulses.Non tender calves mULTI-pODUS BOOTS ON B/L Derm : +VE decubitus ulcer. LABS/RADIOLOGY: URINE CULTURE +VE YEAST - +VE FOLYS ? ASYMPTOMATIC/COLONIZATION SACRAL WOUND CULTURE +VE E.COLI/CORYNEBACTERIUM SPECIES/ CONTAMINATION TRACH SPUTUM-- ACINETOBACTER BAUMANNI- MDR ? ASSESSMENT/PLAN : ON IV MERREM 500MG IV Q8HELY 05/18/18 ADD IV AMIKACIN 500MG IVPB STAT DOSE 05/18/18 F/U AMIKACIN 250MG IV Q D DAILY FOR SYNERGY X 3DAYS-05/19, 05/20, 05/21/18. PULMONARY TOILET. F/U CXR CONTACT PRECAUTIONS Objective - Vital Signs/Intake and Output Vital Signs (last 24 hours): Temp Pulse Resp BP Pulse Ox 98.1 F 91 H 18 109/69 96 05/19/18 22:00 05/19/18 22:00 05/19/18 22:00 05/19/18 22:00 05/19/18 16:00 Intake and Output: 05/19/18 05/20/18 18:59 06:59 Intake Total 200 697 Output Total 1000 300 Balance -800 397 - Medications Medications: Current Medications Acetaminophen (Tylenol 650mg/20.3ml Solution Ud) 650 mg GT Q4 PRN PRN Reason: Pain, Mild (1-3) Albuterol/Ipratropium (Duoneb 3 Mg/0.5 Mg (3 Ml) Ud) 3 ml INH Q4 [facility] Last Admin: 05/19/18 20:10 Dose: 3 ml Aspirin (Aspirin Chewable) 81 mg PEG DAILY [facility] Last Admin: 05/19/18 10:29 Dose: 81 mg Diltiazem HCl (Cardizem) 30 mg PEG Q6 [facility] Last Admin: 05/19/18 17:31 Dose: 30 mg Folic Acid (Folic Acid) 1 mg GT DAILY [facility] Last Admin: 05/19/18 10:29 Dose: 1 mg Furosemide (Lasix) 40 mg PEG DAILY [facility] Last Admin: 05/19/18 10:34 Dose: 40 mg Meropenem 500 mg/ Sodium (Chloride) 100 mls @ 100 mls/hr IVPB Q8 [facility] PRN Reason: Protocol Last Admin: 05/19/18 21:32 Dose: 100 mls/hr Amikacin Sulfate 250 mg/ (Sodium Chloride) 101 mls @ 202 mls/hr IV Q24H [facility] Stop: 05/21/18 13:29 Last Admin: 05/19/18 13:30 Dose: 202 mls/hr Insulin Aspart (Novolog) 0 unit SC ACHS [facility] PRN Reason: Protocol Last Admin: 05/19/18 21:29 Dose: Not Given Magnesium Hydroxide (Milk Of Magnesia) 30 ml GT HS PRN PRN Reason: Constipation Mupirocin (Bactroban Ointment) 15 gm TOP DAILY [facility] Last Admin: 05/19/18 10:30 Dose: 1 applic Pantoprazole Sodium (Protonix Inj) 40 mg IVP DAILY [facility] Last Admin: 05/19/18 10:29 Dose: 40 mg Saccharomyces Boulardii (Florastor) 250 mg GT DAILY [facility] Last Admin: 05/19/18 10:29 Dose: 250 mg Tiotropium [place] (Spiriva) 18 mcg INH RQ24 [facility] Last Admin: 05/19/18 10:58 Dose: Not Given Vitamin A (Vitamin A & D Oint Ud Foilpak) 0.5 ea TOP BID PRN PRN Reason: Dry skin Last Admin: 05/19/18 10:29 Dose: 0.5 ea - Labs Labs: 05/18/18 08:07 05/18/18 08:07 PT 13.2 SECONDS (9.7-12.2) H 05/15/18 12:53 INR 1.2 05/15/18 12:53 APTT 40 SECONDS (21-34) H 05/15/18 12:53 Assessment and Plan (1) Acute hypoxemic respiratory failure Status: Acute (2) Tracheostomy dependent Status: Acute (3) COPD exacerbation Status: Acute (4) Cardiomyopathy Status: Acute (5) Laryngeal cancer Status: Chronic
[2018-05-20] MEDS: Albuterol-Ipratrop 3 mg / 0.5 (3 ml) UD INH SCH ×6 (00:17→19:41)
[2018-05-20] MEDS: Meropenem 500 MG in Sodium Chloride 0.9% 100 ML IVPB SCH ×3 (05:18→21:41)
[2018-05-20] MEDS: (Novolog) Insulin Aspart, Recombinant 100 u/ml 10 ml vial SC SCH ×4 (07:23→21:25)
[2018-05-20] MEDS: Tiotropium 18 mcg Cap For Inhalation INH SCH (08:17)
--- NOTE | 2018-05-20 08:48 | RAD ---
HISTORY: PNEUMONIA COMPARISON: Comparison chest 05/15/2018 FINDINGS: In situ tracheostomy tube in good position. Previously noted right-sided PICC line has been excluded from the film LUNGS: Hyperinflation suggestive of underlying COPD. . Patchy opacities seen throughout the left upper lung field slightly improved. . Vague hazy opacity at right upper lobe PLEURA: No significant pleural effusion identified, no pneumothorax apparent. CARDIOVASCULAR: Normal. OSSEOUS STRUCTURES: No significant abnormalities. VISUALIZED UPPER ABDOMEN: Normal. OTHER FINDINGS: None. IMPRESSION: Hyperinflation suggestive of underlying COPD. . Patchy opacities seen throughout the left upper lung field slightly improved. . Vague hazy opacity at right upper lobe
[2018-05-20] MEDS: Vitamins A & D Oint UD Foilpak TOP PRN (09:54)
[2018-05-20] MEDS: Saccharomyces Boulardi 250 mg Cap GT SCH (09:54)
--- NOTE | 2018-05-20 12:26 | CP.PCM.PN ---
Subjective - Date & Time of Evaluation Date of Evaluation: 05/20/18 Time of Evaluation: 10:00 - Subjective Subjective: the patient seen and examined Less secretions Afebrile Awake and responsive Breathing better Continue antibiotics Tracheostomy care and pulmonary toilet Objective - Vital Signs/Intake and Output Vital Signs (last 24 hours): Temp Pulse Resp BP Pulse Ox 97.5 F L 91 H 20 111/75 96 05/20/18 08:37 05/20/18 08:37 05/20/18 08:37 05/20/18 09:54 05/20/18 08:37 Intake and Output: 05/20/18 05/20/18 06:59 18:59 Intake Total 1357 Output Total 1300 Balance 57 - Medications Medications: Current Medications Acetaminophen (Tylenol 650mg/20.3ml Solution Ud) 650 mg GT Q4 PRN PRN Reason: Pain, Mild (1-3) Albuterol/Ipratropium (Duoneb 3 Mg/0.5 Mg (3 Ml) Ud) 3 ml INH Q4 [facility] Last Admin: 05/20/18 11:03 Dose: 3 ml Aspirin (Aspirin Chewable) 81 mg PEG DAILY [facility] Last Admin: 05/20/18 09:54 Dose: 81 mg Diltiazem HCl (Cardizem) 30 mg PEG Q6 [facility] Last Admin: 05/20/18 05:18 Dose: 30 mg Folic Acid (Folic Acid) 1 mg GT DAILY [facility] Last Admin: 05/20/18 09:54 Dose: 1 mg Furosemide (Lasix) 40 mg PEG DAILY [facility] Last Admin: 05/20/18 09:54 Dose: 40 mg Meropenem 500 mg/ Sodium (Chloride) 100 mls @ 100 mls/hr IVPB Q8 [facility] PRN Reason: Protocol Last Admin: 05/20/18 05:18 Dose: 100 mls/hr Amikacin Sulfate 250 mg/ (Sodium Chloride) 101 mls @ 202 mls/hr IV Q24H [facility] Stop: 05/21/18 13:29 Last Admin: 05/19/18 13:30 Dose: 202 mls/hr Insulin Aspart (Novolog) 0 unit SC ACHS [facility] PRN Reason: Protocol Last Admin: 05/20/18 07:23 Dose: Not Given Magnesium Hydroxide (Milk Of Magnesia) 30 ml GT HS PRN PRN Reason: Constipation Mupirocin (Bactroban Ointment) 15 gm TOP DAILY [facility] Last Admin: 05/20/18 09:57 Dose: 1 applic Pantoprazole Sodium (Protonix Inj) 40 mg IVP DAILY [facility] Last Admin: 05/20/18 09:54 Dose: 40 mg Saccharomyces Boulardii (Florastor) 250 mg GT DAILY [facility] Last Admin: 05/20/18 09:54 Dose: 250 mg Tiotropium [place] (Spiriva) 18 mcg INH RQ24 [facility] Last Admin: 05/20/18 08:17 Dose: 18 mcg Vitamin A (Vitamin A & D Oint Ud Foilpak) 0.5 ea TOP BID PRN PRN Reason: Dry skin Last Admin: 05/20/18 09:54 Dose: 0.5 ea - Labs Labs: 05/18/18 08:07 05/18/18 08:07 PT 13.2 SECONDS (9.7-12.2) H 05/15/18 12:53 INR 1.2 05/15/18 12:53 APTT 40 SECONDS (21-34) H 05/15/18 12:53 Assessment and Plan (1) Acute on chronic respiratory failure with hypoxia and hypercapnia Status: Acute (2) COPD exacerbation Status: Acute (3) Cardiomyopathy Status: Acute
--- NOTE | 2018-05-20 14:24 | CP.PCM.PN ---
Subjective - Date & Time of Evaluation Date of Evaluation: 05/20/18 Time of Evaluation: 08:40 - Subjective Subjective: clinically same Objective - Vital Signs/Intake and Output Vital Signs (last 24 hours): Temp Pulse Resp BP Pulse Ox 97.5 F L 91 H 20 111/75 96 05/20/18 08:37 05/20/18 08:37 05/20/18 08:37 05/20/18 09:54 05/20/18 08:37 Intake and Output: 05/20/18 05/20/18 06:59 18:59 Intake Total 1357 1090 Output Total 1300 1700 Balance 57 -610 - Medications Medications: Current Medications Acetaminophen (Tylenol 650mg/20.3ml Solution Ud) 650 mg GT Q4 PRN PRN Reason: Pain, Mild (1-3) Albuterol/Ipratropium (Duoneb 3 Mg/0.5 Mg (3 Ml) Ud) 3 ml INH Q4 [facility] Last Admin: 05/20/18 11:03 Dose: 3 ml Aspirin (Aspirin Chewable) 81 mg PEG DAILY [facility] Last Admin: 05/20/18 09:54 Dose: 81 mg Diltiazem HCl (Cardizem) 30 mg PEG Q6 [facility] Last Admin: 05/20/18 12:47 Dose: 30 mg Folic Acid (Folic Acid) 1 mg GT DAILY [facility] Last Admin: 05/20/18 09:54 Dose: 1 mg Furosemide (Lasix) 40 mg PEG DAILY [facility] Last Admin: 05/20/18 09:54 Dose: 40 mg Meropenem 500 mg/ Sodium (Chloride) 100 mls @ 100 mls/hr IVPB Q8 [facility] PRN Reason: Protocol Last Admin: 05/20/18 13:49 Dose: 100 mls/hr Amikacin Sulfate 250 mg/ (Sodium Chloride) 101 mls @ 202 mls/hr IV Q24H [facility] Stop: 05/21/18 13:29 Last Admin: 05/20/18 13:48 Dose: 202 mls/hr Insulin Aspart (Novolog) 0 unit SC ACHS [facility] PRN Reason: Protocol Last Admin: 05/20/18 11:30 Dose: Not Given Magnesium Hydroxide (Milk Of Magnesia) 30 ml GT HS PRN PRN Reason: Constipation Mupirocin (Bactroban Ointment) 15 gm TOP DAILY [facility] Last Admin: 05/20/18 09:57 Dose: 1 applic Pantoprazole Sodium (Protonix Inj) 40 mg IVP DAILY [facility] Last Admin: 05/20/18 09:54 Dose: 40 mg Saccharomyces Boulardii (Florastor) 250 mg GT DAILY [facility] Last Admin: 05/20/18 09:54 Dose: 250 mg Tiotropium [place] (Spiriva) 18 mcg INH RQ24 [facility] Last Admin: 05/20/18 08:17 Dose: 18 mcg Vitamin A (Vitamin A & D Oint Ud Foilpak) 0.5 ea TOP BID PRN PRN Reason: Dry skin Last Admin: 05/20/18 09:54 Dose: 0.5 ea - Labs Labs: 05/18/18 08:07 05/18/18 08:07 PT 13.2 SECONDS (9.7-12.2) H 05/15/18 12:53 INR 1.2 05/15/18 12:53 APTT 40 SECONDS (21-34) H 05/15/18 12:53 - Constitutional Appears: Well - Head Exam Head Exam: ATRAUMATIC, NORMAL INSPECTION, NORMOCEPHALIC - Eye Exam Eye Exam: EOMI, Normal appearance, PERRL Pupil Exam: NORMAL ACCOMODATION, PERRL - ENT Exam ENT Exam: Mucous Membranes Moist, Normal Exam - Neck Exam Neck Exam: Full ROM, Normal Inspection. absent: Lymphadenopathy - Respiratory Exam Respiratory Exam: Decreased Breath Sounds - Cardiovascular Exam Cardiovascular Exam: REGULAR RHYTHM, +S1, +S2 - GI/Abdominal Exam GI & Abdominal Exam: Soft, Diminished Bowel Sounds - Rectal Exam Rectal Exam: Deferred
[2018-05-21] MEDS: Meropenem 500 MG in Sodium Chloride 0.9% 100 ML IVPB SCH ×3 (05:16→21:32)
[2018-05-21] MEDS: (Novolog) Insulin Aspart, Recombinant 100 u/ml 10 ml vial SC SCH ×4 (07:30→21:30)
[2018-05-21] MEDS: Saccharomyces Boulardi 250 mg Cap GT SCH (10:48)
--- NOTE | 2018-05-21 12:56 | CP.PCM.PN ---
Subjective - Date & Time of Evaluation Date of Evaluation: 05/21/18 Time of Evaluation: 12:56 - Subjective Subjective: CHIEF COMPLAINTS TODAY : AFEBRILE, AWAKE AND RESPONSIVE TRACHEOSTOMY IN PLACE. +VE SECRETIONS LESS ROS. HEENT : N. Resp : No cough, wheezing ,pleuritic CP ,or hemoptysis Cardio : No anginal CP, PND, orthopnea, palpitation GI : No abd.pain, n/v ,diarrhea or GI bleeding . 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 Musculoskel : No joint swelling , Derm : +VE SACRAL DECUBITUS ULCERS Psych : Normal affect. Ext : No swelling ,calf pain PE. Pt. is alert awake in no distress. V.S As noted in the chart Head ,ear nose,throat and eyes : Normal.+VE TRACHEOSTOMY IN PLACE Neck : Supple with normal carotids. Lungs: BILATERAL RHONCHI Heart : S1 & S2 normal with S4. No murmur. Abd : Soft non tender with normal bowel sounds. +VE GT IN PLACE Neuro : Moves all ext. with no localized deficit. Ext : No edema with intact pulses.Non tender calves mULTI-pODUS BOOTS ON B/L Derm : +VE decubitus ulcer. LABS/RADIOLOGY: URINE CULTURE +VE YEAST - +VE FOLYS ? ASYMPTOMATIC/COLONIZATION SACRAL WOUND CULTURE +VE E.COLI/CORYNEBACTERIUM SPECIES/ CONTAMINATION TRACH SPUTUM-- ACINETOBACTER BAUMANNI- MDR S-COLISTIN CXR - MILD IMPROVEMENT ASSESSMENT/PLAN : START IV COLISTIN 100MG IVPB [id number] X 7DAYS 05/20/18--TILL 05/26/18 DECREASE IV MERREM 500MG IV Q12 [facility] 05/18/18 FOR 4 DAYS MORE. PT COMPLETED IV AMIKACIN X 4 DOSES F/U RENAL FUNCTION CLOSELY PULMONARY TOILET. CONTACT PRECAUTIONS Objective - Vital Signs/Intake and Output Vital Signs (last 24 hours): Temp Pulse Resp BP Pulse Ox 97.8 F 87 20 98/60 L 96 05/21/18 08:05 05/21/18 08:05 05/21/18 08:05 05/21/18 10:49 05/21/18 08:05 Intake and Output: 05/21/18 05/21/18 06:59 18:59 Intake Total 760 Output Total 1400 Balance -640 - Medications Medications: Current Medications Acetaminophen (Tylenol 650mg/20.3ml Solution Ud) 650 mg GT Q4 PRN PRN Reason: Pain, Mild (1-3) Aspirin (Aspirin Chewable) 81 mg PEG DAILY [facility] Last Admin: 05/21/18 10:48 Dose: 81 mg Diltiazem HCl (Cardizem) 30 mg PEG Q6 [facility] Last Admin: 05/21/18 05:30 Dose: 30 mg Folic Acid (Folic Acid) 1 mg GT DAILY [facility] Last Admin: 05/21/18 10:48 Dose: 1 mg Furosemide (Lasix) 40 mg PEG DAILY [facility] Last Admin: 05/21/18 10:49 Dose: Not Given Meropenem 500 mg/ Sodium (Chloride) 100 mls @ 100 mls/hr IVPB Q8 [facility] PRN Reason: Protocol Last Admin: 05/21/18 05:16 Dose: 100 mls/hr Amikacin Sulfate 250 mg/ (Sodium Chloride) 101 mls @ 202 mls/hr IV Q24H [facility] Stop: 05/21/18 13:29 Last Admin: 05/20/18 13:48 Dose: 202 mls/hr Insulin Aspart (Novolog) 0 unit SC ACHS [facility] PRN Reason: Protocol Last Admin: 05/21/18 12:10 Dose: Not Given Magnesium Hydroxide (Milk Of Magnesia) 30 ml GT HS PRN PRN Reason: Constipation Mupirocin (Bactroban Ointment) 15 gm TOP DAILY [facility] Last Admin: 05/20/18 09:57 Dose: 1 applic Pantoprazole Sodium (Protonix Inj) 40 mg IVP DAILY [facility] Last Admin: 05/21/18 10:48 Dose: 40 mg Saccharomyces Boulardii (Florastor) 250 mg GT DAILY [facility] Last Admin: 05/21/18 10:48 Dose: 250 mg Tiotropium [place] (Spiriva) 18 mcg INH RQ24 [facility] Last Admin: 05/20/18 08:17 Dose: 18 mcg Vitamin A (Vitamin A & D Oint Ud Foilpak) 0.5 ea TOP BID PRN PRN Reason: Dry skin Last Admin: 05/20/18 09:54 Dose: 0.5 ea - Labs Labs: 05/18/18 08:07 05/18/18 08:07 PT 13.2 SECONDS (9.7-12.2) H 05/15/18 12:53 INR 1.2 05/15/18 12:53 APTT 40 SECONDS (21-34) H 05/15/18 12:53 Assessment and Plan (1) Acute hypoxemic respiratory failure Status: Acute (2) Tracheostomy dependent Status: Acute (3) COPD exacerbation Status: Acute (4) Cardiomyopathy Status: Acute (5) Laryngeal cancer Status: Chronic
--- NOTE | 2018-05-21 17:10 | CP.PCM.PN ---
Subjective - Date & Time of Evaluation Date of Evaluation: 05/21/18 Time of Evaluation: 09:35 - Subjective Subjective: HPI: Patient was examined at bedside. Patient is in no acute distress. Patient is more awake and more responsive. Patient is afebrile. Patient has decreased secretions from tracheotomy. Patient breathing has improved. Patient is waiting for authorization to be discharged. ROS: Constitutional: Patient denies fever and chills. Cardiovascular: Patient denies chest pain, palpitations Respiratory: Patient denies shortness of breath and cough. Gastrointestinal: Patient denies nausea, vomiting, diarrhea. Physical Exam HEENT: Atraumatic, normocephalic, mucuous membranes moist Repiratory: Clear to auscultation bilaterally. No rales, no wheezing or rhonchi. No use of accessory muscles. Cardiovascular: +S1/ S2, regular rate and rhythm GI: Normal bowel sounds in all 4 quadrants, no tenderness, no distention Extremities: No LE edema Neurological: Alert, awake Assessment: 70 year old male patient with past medical history of laryngeal cancer, COPD, hypertension and CHF; patient presents with consistent acute respiratory failure with hypoxia and hypercapnia. 1. Acute on chronic respiratory failure with hypoxia and hypercapnia Status: Acute -Vancomycin Hcl 150 mls @ 150 mls/ hr IVPB Q12H -Cefepime Hcl 1 gm in 50 mls @ 100 mls/ hr IVPB Q12H - Cirpofloxacin 400 mg in 200 mls @ 133 mls/ hr IVPB Q12 - Albuterol/ Ipratropium 3 ml INH Q4 - Tiotropium bromide 1 inhaler INH daily - Tracheostomy care - Pulmonary toilet 2. Hypertension Status: Chronic - Diltiazem Hcl 30 mg PEG Q6 -Furosemide 40 mg PEG daily Objective - Vital Signs/Intake and Output Vital Signs (last 24 hours): Temp Pulse Resp BP Pulse Ox 97.7 F 86 19 135/81 97 05/21/18 16:11 05/21/18 16:11 05/21/18 16:11 05/21/18 16:11 05/21/18 16:11 Intake and Output: 05/21/18 05/21/18 06:59 18:59 Intake Total 760 1190 Output Total 1400 500 Balance -640 690 - Medications Medications: Current Medications Acetaminophen (Tylenol 650mg/20.3ml Solution Ud) 650 mg GT Q4 PRN PRN Reason: Pain, Mild (1-3) Aspirin (Aspirin Chewable) 81 mg PEG DAILY [facility] Last Admin: 05/21/18 10:48 Dose: 81 mg Diltiazem HCl (Cardizem) 30 mg PEG Q6 [facility] Last Admin: 05/21/18 12:36 Dose: 30 mg Folic Acid (Folic Acid) 1 mg GT DAILY [facility] Last Admin: 05/21/18 10:48 Dose: 1 mg Furosemide (Lasix) 40 mg PEG DAILY [facility] Last Admin: 05/21/18 10:49 Dose: Not Given Meropenem 500 mg/ Sodium (Chloride) 100 mls @ 100 mls/hr IVPB Q8 [facility] PRN Reason: Protocol Last Admin: 05/21/18 14:55 Dose: 100 mls/hr Insulin Aspart (Novolog) 0 unit SC ACHS [facility] PRN Reason: Protocol Last Admin: 05/21/18 16:43 Dose: Not Given Magnesium Hydroxide (Milk Of Magnesia) 30 ml GT HS PRN PRN Reason: Constipation Mupirocin (Bactroban Ointment) 15 gm TOP DAILY [facility] Last Admin: 05/21/18 10:37 Dose: 1 applic Pantoprazole Sodium (Protonix Ec Tab) 40 mg PO DAILY [facility] Saccharomyces Boulardii (Florastor) 250 mg GT DAILY [facility] Last Admin: 05/21/18 10:48 Dose: 250 mg Tiotropium [place] (Spiriva) 18 mcg INH RQ24 [facility] Last Admin: 05/20/18 08:17 Dose: 18 mcg Vitamin A (Vitamin A & D Oint Ud Foilpak) 0.5 ea TOP BID PRN PRN Reason: Dry skin Last Admin: 05/20/18 09:54 Dose: 0.5 ea - Labs Labs: 05/18/18 08:07 05/18/18 08:07 PT 13.2 SECONDS (9.7-12.2) H 05/15/18 12:53 INR 1.2 05/15/18 12:53 APTT 40 SECONDS (21-34) H 05/15/18 12:53 Assessment and Plan (1) Acute on chronic respiratory failure with hypoxia and hypercapnia Status: Acute (2) COPD exacerbation Status: Acute (3) Cardiomyopathy Status: Acute
--- NOTE | 2018-05-21 20:57 | CP.PCM.PN ---
Subjective - Date & Time of Evaluation Date of Evaluation: 05/21/18 Time of Evaluation: 08:15 - Subjective Subjective: clinically same Objective - Vital Signs/Intake and Output Vital Signs (last 24 hours): Temp Pulse Resp BP Pulse Ox 97.7 F 86 19 135/81 97 05/21/18 16:11 05/21/18 16:11 05/21/18 16:11 05/21/18 16:11 05/21/18 16:11 Intake and Output: 05/21/18 05/22/18 18:59 06:59 Intake Total 1190 Output Total 500 Balance 690 - Medications Medications: Current Medications Acetaminophen (Tylenol 650mg/20.3ml Solution Ud) 650 mg GT Q4 PRN PRN Reason: Pain, Mild (1-3) Aspirin (Aspirin Chewable) 81 mg PEG DAILY [facility] Last Admin: 05/21/18 10:48 Dose: 81 mg Diltiazem HCl (Cardizem) 30 mg PEG Q6 [facility] Last Admin: 05/21/18 17:26 Dose: 30 mg Folic Acid (Folic Acid) 1 mg GT DAILY [facility] Last Admin: 05/21/18 10:48 Dose: 1 mg Furosemide (Lasix) 40 mg PEG DAILY [facility] Last Admin: 05/21/18 10:49 Dose: Not Given Meropenem 500 mg/ Sodium (Chloride) 100 mls @ 100 mls/hr IVPB Q8 [facility] PRN Reason: Protocol Last Admin: 05/21/18 14:55 Dose: 100 mls/hr Insulin Aspart (Novolog) 0 unit SC ACHS [facility] PRN Reason: Protocol Last Admin: 05/21/18 16:43 Dose: Not Given Magnesium Hydroxide (Milk Of Magnesia) 30 ml GT HS PRN PRN Reason: Constipation Mupirocin (Bactroban Ointment) 15 gm TOP DAILY [facility] Last Admin: 05/21/18 10:37 Dose: 1 applic Pantoprazole Sodium (Protonix Ec Tab) 40 mg PO DAILY [facility] Saccharomyces Boulardii (Florastor) 250 mg GT DAILY [facility] Last Admin: 05/21/18 10:48 Dose: 250 mg Tiotropium [place] (Spiriva) 18 mcg INH RQ24 [facility] Last Admin: 05/20/18 08:17 Dose: 18 mcg Vitamin A (Vitamin A & D Oint Ud Foilpak) 0.5 ea TOP BID PRN PRN Reason: Dry skin Last Admin: 05/20/18 09:54 Dose: 0.5 ea - Labs Labs: 05/18/18 08:07 05/18/18 08:07 PT 13.2 SECONDS (9.7-12.2) H 05/15/18 12:53 INR 1.2 05/15/18 12:53 APTT 40 SECONDS (21-34) H 05/15/18 12:53 - Constitutional Appears: Well - Head Exam Head Exam: ATRAUMATIC, NORMAL INSPECTION, NORMOCEPHALIC - Eye Exam Eye Exam: EOMI, Normal appearance, PERRL Pupil Exam: NORMAL ACCOMODATION, PERRL - ENT Exam ENT Exam: Mucous Membranes Moist, Normal Exam - Neck Exam Neck Exam: Full ROM, Normal Inspection. absent: Lymphadenopathy - Respiratory Exam Respiratory Exam: Decreased Breath Sounds - Cardiovascular Exam Cardiovascular Exam: REGULAR RHYTHM, +S1, +S2 - GI/Abdominal Exam GI & Abdominal Exam: Soft, Diminished Bowel Sounds - Rectal Exam Rectal Exam: Deferred
[2018-05-22] MEDS: Meropenem 500 MG in Sodium Chloride 0.9% 100 ML IVPB SCH ×2 (01:44→13:29)
[2018-05-22] MEDS: (Novolog) Insulin Aspart, Recombinant 100 u/ml 10 ml vial SC SCH ×4 (07:43→21:28)
[2018-05-22 08:24] LABS: BASO % 0.2 % (0.0-2.0); EOS # 0.7 K/uL (0.0-0.7); EOS % 11.4 % (0.0-4.0); HEMOGLOBIN 9.9 g/dL (12.0-18.0); LYMPH # 1.1 K/uL (1.0-4.3); LYMPH % 19.2 % (20.0-40.0); MEAN CELL VOLUME 90.8 fL (80.0-94.0); MEAN CORPUSCULAR HEMOGLOBIN 28.4 pg (27.0-31.0); MEAN CORPUSCULAR HGB CONC 31.2 g/dL (33.0-37.0); MEAN PLATELET VOLUME 7.5 fL (7.2-11.7); MONO # 0.6 K/uL (0.0-0.8); MONO % 10.5 % (0.0-10.0); NEUT # 3.4 K/uL (1.8-7.0); NEUT % 58.7 % (50.0-75.0); NRBC % 0.1 % (0.0-2.0); RBC 3.49 Mil/uL (4.40-5.90); WHITE BLOOD COUNT 5.8 K/uL (4.8-10.8)
[2018-05-22 09:59] LABS: ALB/GLOB RATIO 0.9 (1.0-2.1); ALBUMIN 3.4 g/dL (3.5-5.0); ALT/SGPT 27 U/L (21-72); AST/SGOT 36 U/L (17-59); BILIRUBIN,DIRECT 0.4 mg/dL (0.0-0.4); BLOOD UREA NITROGEN 25 mg/dL (9-20); CALCIUM 8.9 mg/dl (8.6-10.4); GFR AFRICAN-AMERICAN > 60; GFR NON-AFRICAN AMERICAN > 60
[2018-05-22] MEDS: Saccharomyces Boulardi 250 mg Cap GT SCH (10:03)
[2018-05-22] MEDS: Pantoprazole 40 mg EC Tab PO SCH (10:03)
--- NOTE | 2018-05-22 11:30 | CP.PCM.PN ---
Subjective - Date & Time of Evaluation Date of Evaluation: 05/22/18 Time of Evaluation: 08:15 - Subjective Subjective: clinically same Objective - Vital Signs/Intake and Output Vital Signs (last 24 hours): Temp Pulse Resp BP Pulse Ox 97.4 F L 87 20 112/64 100 05/22/18 08:10 05/22/18 08:10 05/22/18 08:10 05/22/18 10:04 05/22/18 08:10 Intake and Output: 05/22/18 05/22/18 06:59 18:59 Intake Total 660 Output Total 1999 Balance -1340 - Medications Medications: Current Medications Acetaminophen (Tylenol 650mg/20.3ml Solution Ud) 650 mg GT Q4 PRN PRN Reason: Pain, Mild (1-3) Aspirin (Aspirin Chewable) 81 mg PEG DAILY [facility] Last Admin: 05/22/18 10:03 Dose: 81 mg Diltiazem HCl (Cardizem) 30 mg PEG Q6 [facility] Last Admin: 05/22/18 05:49 Dose: Not Given Folic Acid (Folic Acid) 1 mg GT DAILY [facility] Last Admin: 05/22/18 10:03 Dose: 1 mg Furosemide (Lasix) 40 mg PEG DAILY [facility] Last Admin: 05/22/18 10:04 Dose: 40 mg Colistimethate Sodium 100 mg/ (Sodium Chloride) 100 mls @ 200 mls/hr IV Q12H [facility] PRN Reason: Protocol Last Admin: 05/22/18 02:29 Dose: 200 mls/hr Meropenem 500 mg/ Sodium (Chloride) 100 mls @ 100 mls/hr IVPB Q12H [facility] PRN Reason: Protocol Last Admin: 05/22/18 01:44 Dose: 100 mls/hr Insulin Aspart (Novolog) 0 unit SC ACHS [facility] PRN Reason: Protocol Last Admin: 05/22/18 07:43 Dose: Not Given Magnesium Hydroxide (Milk Of Magnesia) 30 ml GT HS PRN PRN Reason: Constipation Mupirocin (Bactroban Ointment) 15 gm TOP DAILY [facility] Last Admin: 05/22/18 10:06 Dose: Not Given Pantoprazole Sodium (Protonix Ec Tab) 40 mg PO DAILY [facility] Last Admin: 05/22/18 10:03 Dose: 40 mg Saccharomyces Boulardii (Florastor) 250 mg GT DAILY [facility] Last Admin: 05/22/18 10:03 Dose: 250 mg Tiotropium [place] (Spiriva) 18 mcg INH RQ24 [facility] Last Admin: 05/20/18 08:17 Dose: 18 mcg Vitamin A (Vitamin A & D Oint Ud Foilpak) 0.5 ea TOP BID PRN PRN Reason: Dry skin Last Admin: 05/20/18 09:54 Dose: 0.5 ea - Labs Labs: 05/22/18 07:50 05/22/18 07:50 PT 13.2 SECONDS (9.7-12.2) H 05/15/18 12:53 INR 1.2 05/15/18 12:53 APTT 40 SECONDS (21-34) H 05/15/18 12:53 - Constitutional Appears: Well - Head Exam Head Exam: ATRAUMATIC, NORMAL INSPECTION, NORMOCEPHALIC - Eye Exam Eye Exam: EOMI, Normal appearance, PERRL Pupil Exam: NORMAL ACCOMODATION, PERRL - ENT Exam ENT Exam: Mucous Membranes Moist, Normal Exam - Neck Exam Neck Exam: Full ROM, Normal Inspection. absent: Lymphadenopathy - Respiratory Exam Respiratory Exam: Decreased Breath Sounds - Cardiovascular Exam Cardiovascular Exam: REGULAR RHYTHM, +S1, +S2 - GI/Abdominal Exam GI & Abdominal Exam: Soft, Diminished Bowel Sounds - Rectal Exam Rectal Exam: Deferred Assessment and Plan - Assessment and Plan (Free Text) Plan: Pulmonary consult ID consultation IV meropenem DuoNeb ID consultations Diltiazem Poor prognosis Monitor [email or web address]
--- NOTE | 2018-05-22 16:30 | CP.PCM.PN ---
Subjective - Date & Time of Evaluation Date of Evaluation: 05/22/18 Time of Evaluation: 10:20 - Subjective Subjective: Patient seen and examined at bedside this morning. Patient is in no acute distress. Patient is more awake and more responsive. Patient is afebrile. Patient breathing has improved. Patient is waiting for rehab to be discharged. ROS: Constitutional: Patient denies fever and chills. Cardiovascular: Patient denies chest pain, palpitations Respiratory: Patient denies shortness of breath and cough. Gastrointestinal: Patient denies nausea, vomiting, diarrhea. Physical Exam HEENT: Atraumatic, normocephalic, mucuous membranes moist Repiratory: Clear to auscultation bilaterally. No rales, no wheezing or rhonchi. No use of accessory muscles. Cardiovascular: +S1/ S2, regular rate and rhythm GI: Normal bowel sounds in all 4 quadrants, no tenderness, no distention Extremities: No LE edema Neurological: Alert, awake Assessment: 70 year old male patient with past medical history of laryngeal cancer, COPD, hypertension and CHF; patient presents with consistent acute respiratory failure with hypoxia and hypercapnia. 1. Acute on chronic respiratory failure with hypoxia and hypercapnia Status: Acute -Vancomycin Hcl 150 mls @ 150 mls/ hr IVPB Q12H -Cefepime Hcl 1 gm in 50 mls @ 100 mls/ hr IVPB Q12H - Cirpofloxacin 400 mg in 200 mls @ 133 mls/ hr IVPB Q12 - Albuterol/ Ipratropium 3 ml INH Q4 - Tiotropium bromide 1 inhaler INH daily - Tracheostomy care - Pulmonary toilet 2. Hypertension Status: Chronic - Diltiazem Hcl 30 mg PEG Q6 -Furosemide 40 mg PEG daily Objective - Vital Signs/Intake and Output Vital Signs (last 24 hours): Temp Pulse Resp BP Pulse Ox 97.8 F 104 H 20 90/59 L 96 05/22/18 16:02 05/22/18 16:02 05/22/18 16:02 05/22/18 16:02 05/22/18 16:02 Intake and Output: 05/22/18 05/22/18 06:59 18:59 Intake Total 660 760 Output Total 2000 700 Balance -1340 60 - Medications Medications: Current Medications Acetaminophen (Tylenol 650mg/20.3ml Solution Ud) 650 mg GT Q4 PRN PRN Reason: Pain, Mild (1-3) Aspirin (Aspirin Chewable) 81 mg PEG DAILY [facility] Last Admin: 05/22/18 10:03 Dose: 81 mg Diltiazem HCl (Cardizem) 30 mg PEG Q6 [facility] Last Admin: 05/22/18 12:36 Dose: Not Given Folic Acid (Folic Acid) 1 mg GT DAILY [facility] Last Admin: 05/22/18 10:03 Dose: 1 mg Furosemide (Lasix) 40 mg PEG DAILY [facility] Last Admin: 05/22/18 10:04 Dose: 40 mg Colistimethate Sodium 100 mg/ (Sodium Chloride) 100 mls @ 200 mls/hr IV Q12H [facility] PRN Reason: Protocol Last Admin: 05/22/18 14:33 Dose: 200 mls/hr Meropenem 500 mg/ Sodium (Chloride) 100 mls @ 100 mls/hr IVPB Q12H [facility] PRN Reason: Protocol Last Admin: 05/22/18 13:29 Dose: 100 mls/hr Insulin Aspart (Novolog) 0 unit SC ACHS [facility] PRN Reason: Protocol Last Admin: 05/22/18 12:22 Dose: Not Given Magnesium Hydroxide (Milk Of Magnesia) 30 ml GT HS PRN PRN Reason: Constipation Mupirocin (Bactroban Ointment) 15 gm TOP DAILY [facility] Last Admin: 05/22/18 10:06 Dose: Not Given Pantoprazole Sodium (Protonix Ec Tab) 40 mg PO DAILY [facility] Last Admin: 05/22/18 10:03 Dose: 40 mg Saccharomyces Boulardii (Florastor) 250 mg GT DAILY [facility] Last Admin: 05/22/18 10:03 Dose: 250 mg Tiotropium [place] (Spiriva) 18 mcg INH RQ24 [facility] Last Admin: 05/20/18 08:17 Dose: 18 mcg Vitamin A (Vitamin A & D Oint Ud Foilpak) 0.5 ea TOP BID PRN PRN Reason: Dry skin Last Admin: 05/20/18 09:54 Dose: 0.5 ea - Labs Labs: 05/22/18 07:50 05/22/18 07:50 PT 13.2 SECONDS (9.7-12.2) H 05/15/18 12:53 INR 1.2 05/15/18 12:53 APTT 40 SECONDS (21-34) H 05/15/18 12:53 Assessment and Plan (1) Acute on chronic respiratory failure with hypoxia and hypercapnia Status: Acute (2) COPD exacerbation Status: Acute (3) Cardiomyopathy Status: Acute
[2018-05-23] MEDS: Meropenem 500 MG in Sodium Chloride 0.9% 100 ML IVPB SCH ×2 (00:52→13:42)
[2018-05-23] MEDS: (Novolog) Insulin Aspart, Recombinant 100 u/ml 10 ml vial SC SCH ×4 (07:30→21:42)
[2018-05-23 07:49] LABS: BASO % 0.6 % (0.0-2.0); EOS # 0.7 K/uL (0.0-0.7); EOS % 13.6 % (0.0-4.0); HEMOGLOBIN 9.6 g/dL (12.0-18.0); LYMPH # 1.2 K/uL (1.0-4.3); LYMPH % 22.1 % (20.0-40.0); MEAN CELL VOLUME 91.3 fL (80.0-94.0); MEAN CORPUSCULAR HEMOGLOBIN 30.1 pg (27.0-31.0); MEAN PLATELET VOLUME 7.4 fL (7.2-11.7); MONO # 0.6 K/uL (0.0-0.8); MONO % 11.5 % (0.0-10.0); NEUT # 2.8 K/uL (1.8-7.0); NEUT % 52.2 % (50.0-75.0); NRBC % 0.1 % (0.0-2.0); RBC 3.2 Mil/uL (4.40-5.90); RED CELL DISTRIBUTION WIDTH 21.9 % (11.5-14.5); WHITE BLOOD COUNT 5.3 K/uL (4.8-10.8)
[2018-05-23 08:17] LABS: ALB/GLOB RATIO 0.9 (1.0-2.1); ALBUMIN 3.2 g/dL (3.5-5.0); ALT/SGPT 33 U/L (21-72); AST/SGOT 33 U/L (17-59); BLOOD UREA NITROGEN 32 mg/dL (9-20); CALCIUM 8.8 mg/dl (8.6-10.4); GFR AFRICAN-AMERICAN > 60; GFR NON-AFRICAN AMERICAN > 60
[2018-05-23 09:31] LABS: ARTERIAL BLOOD GAS HCO3 43.1 mmol/L (21-28); ARTERIAL BLOOD GAS HEMOGLOBIN 8.9 g/dL (11.7-17.4); ARTERIAL BLOOD GAS O2 SAT 93.1 % (95-98); ARTERIAL BLOOD GAS PCO2 79 mm/Hg (35-45); ARTERIAL BLOOD GAS PH 7.42 (7.35-7.45); ARTERIAL BLOOD GAS PO2 57 mm/Hg (80-100); ARTERIAL BLOOD GAS TCO2 53.6 mmol/L (22-28)
[2018-05-23] MEDS: Pantoprazole 40 mg EC Tab PO SCH (10:26)
[2018-05-23] MEDS: Saccharomyces Boulardi 250 mg Cap GT SCH (10:26)
[2018-05-23] MEDS: Vitamins A & D Oint UD Foilpak TOP PRN (10:27)
--- NOTE | 2018-05-23 11:36 | CP.PCM.PN ---
Subjective - Date & Time of Evaluation Date of Evaluation: 05/23/18 Time of Evaluation: 11:36 - Subjective Subjective: CHIEF COMPLAINTS TODAY : AFEBRILE, AWAKE TRACHEOSTOMY IN PLACE. +VE SECRETIONS LESS ROS. HEENT : N. Resp : No cough, wheezing ,pleuritic CP ,or hemoptysis Cardio : No anginal CP, PND, orthopnea, palpitation GI : No abd.pain, n/v ,diarrhea or GI bleeding . [employer] : No headache, vertigo, focal deficit. Musculoskel : No joint swelling , Derm : +VE SACRAL DECUBITUS ULCERS Psych : Normal affect. Ext : No swelling ,calf pain PE. Pt. is alert awake in no distress. V.S As noted in the chart Head ,ear nose,throat and eyes : Normal.+VE TRACHEOSTOMY IN PLACE Neck : Supple with normal carotids. Lungs: BILATERAL RHONCHI Heart : S1 & S2 normal with S4. No murmur. Abd : Soft non tender with normal bowel sounds. +VE GT IN PLACE Neuro : Moves all ext. with no localized deficit. Ext : No edema with intact pulses.Non tender calves mULTI-pODUS BOOTS ON B/L Derm : +VE decubitus ulcer.-stage 4 , granulating . pink base LABS/RADIOLOGY: URINE CULTURE +VE YEAST - +VE FOLYS ? ASYMPTOMATIC/COLONIZATION SACRAL WOUND CULTURE +VE E.COLI/CORYNEBACTERIUM SPECIES/ CONTAMINATION TRACH SPUTUM-- ACINETOBACTER BAUMANNI- MDR S-COLISTIN CXR - MILD IMPROVEMENT ASSESSMENT/PLAN : CONTINUE IV COLISTIN 100MG IVPB [id number] X 7DAYS 05/20/18--TILL 05/26/18 DECREASE IV MERREM 500MG IV Q12 HRLY 05/18/18 FOR 4 DAYS MORE. F/U RENAL FUNCTION CLOSELY PULMONARY TOILET. CONTACT PRECAUTIONS Objective - Vital Signs/Intake and Output Vital Signs (last 24 hours): Temp Pulse Resp BP Pulse Ox 98.3 F 99 H 20 100/61 98 05/23/18 07:00 05/23/18 07:00 05/23/18 07:00 05/23/18 10:26 05/23/18 07:00 Intake and Output: 05/23/18 05/23/18 06:59 18:59 Intake Total 660 Output Total 1200 Balance -540 - Medications Medications: Current Medications Acetaminophen (Tylenol 650mg/20.3ml Solution Ud) 650 mg GT Q4 PRN PRN Reason: Pain, Mild (1-3) Aspirin (Aspirin Chewable) 81 mg PEG DAILY [facility] Last Admin: 05/23/18 10:27 Dose: 81 mg Diltiazem HCl (Cardizem) 30 mg PEG Q6 [facility] Last Admin: 05/23/18 07:03 Dose: 30 mg Folic Acid (Folic Acid) 1 mg GT DAILY [facility] Last Admin: 05/23/18 10:27 Dose: 1 mg Furosemide (Lasix) 40 mg PEG DAILY [facility] Last Admin: 05/23/18 10:26 Dose: 40 mg Colistimethate Sodium 100 mg/ (Sodium Chloride) 100 mls @ 200 mls/hr IV Q12H [facility] PRN Reason: Protocol Last Admin: 05/23/18 02:15 Dose: 200 mls/hr Meropenem 500 mg/ Sodium (Chloride) 100 mls @ 100 mls/hr IVPB Q12H [facility] PRN Reason: Protocol Last Admin: 05/23/18 00:52 Dose: 100 mls/hr Insulin Aspart (Novolog) 0 unit SC ACHS [facility] PRN Reason: Protocol Last Admin: 05/23/18 11:29 Dose: Not Given Magnesium Hydroxide (Milk Of Magnesia) 30 ml GT HS PRN PRN Reason: Constipation Mupirocin (Bactroban Ointment) 15 gm TOP DAILY [facility] Last Admin: 05/23/18 10:27 Dose: 1 applic Pantoprazole Sodium (Protonix Ec Tab) 40 mg PO DAILY [facility] Last Admin: 05/23/18 10:26 Dose: 40 mg Saccharomyces Boulardii (Florastor) 250 mg GT DAILY [facility] Last Admin: 05/23/18 10:26 Dose: 250 mg Tiotropium [place] (Spiriva) 18 mcg INH RQ24 [facility] Last Admin: 05/20/18 08:17 Dose: 18 mcg Vitamin A (Vitamin A & D Oint Ud Foilpak) 0.5 ea TOP BID PRN PRN Reason: Dry skin Last Admin: 05/23/18 10:27 Dose: 0.5 ea - Labs Labs: 05/23/18 07:30 05/23/18 07:30 PT 13.2 SECONDS (9.7-12.2) H 05/15/18 12:53 INR 1.2 05/15/18 12:53 APTT 40 SECONDS (21-34) H 05/15/18 12:53 Assessment and Plan (1) Acute hypoxemic respiratory failure Status: Acute (2) Tracheostomy dependent Status: Acute (3) COPD exacerbation Status: Acute (4) Cardiomyopathy Status: Acute (5) Laryngeal cancer Status: Chronic
--- NOTE | 2018-05-23 17:20 | CP.PCM.PN ---
Subjective - Date & Time of Evaluation Date of Evaluation: 05/23/18 Time of Evaluation: 13:00 - Subjective Subjective: Patient seen and examined at bedside this morning. Patient is in no acute distress. Patient is awake and responsive. Patient has no problems with breathing. Patient is afebrile.patient pulled out the tracheostomy tube which was replaced without difficulty. Patient is waiting for rehab to be discharged. ROS: Constitutional: Patient denies fever and chills. Cardiovascular: Patient denies chest pain, palpitations Respiratory: Patient denies shortness of breath and cough. Gastrointestinal: Patient denies nausea, vomiting, diarrhea. Physical Exam HEENT: Atraumatic, normocephalic, mucuous membranes moist Repiratory: Clear to auscultation bilaterally. No rales, no wheezing or rhonchi. No use of accessory muscles. Cardiovascular: +S1/ S2, regular rate and rhythm GI: Normal bowel sounds in all 4 quadrants, no tenderness, no distention Extremities: No LE edema Neurological: Alert, awake Assessment: 70 year old male patient with past medical history of laryngeal cancer, COPD, hypertension and CHF; patient presents with consistent acute respiratory failure with hypoxia and hypercapnia. 1. Acute on chronic respiratory failure with hypoxia and hypercapnia Status: Acute -Vancomycin Hcl 150 mls @ 150 mls/ hr IVPB Q12H -Cefepime Hcl 1 gm in 50 mls @ 100 mls/ hr IVPB Q12H - Cirpofloxacin 400 mg in 200 mls @ 133 mls/ hr IVPB Q12 - Albuterol/ Ipratropium 3 ml INH Q4 - Tiotropium bromide 1 inhaler INH daily - Tracheostomy care - Pulmonary toilet 2. Hypertension Status: Chronic - Diltiazem Hcl 30 mg PEG Q6 -Furosemide 40 mg PEG daily Objective - Vital Signs/Intake and Output Vital Signs (last 24 hours): Temp Pulse Resp BP Pulse Ox 97.9 F 91 H 20 101/66 96 05/23/18 16:00 05/23/18 16:00 05/23/18 16:00 05/23/18 16:00 05/23/18 16:00 Intake and Output: 05/23/18 05/23/18 06:59 18:59 Intake Total 660 1090 Output Total 1200 1050 Balance -540 40 - Medications Medications: Current Medications Acetaminophen (Tylenol 650mg/20.3ml Solution Ud) 650 mg GT Q4 PRN PRN Reason: Pain, Mild (1-3) Aspirin (Aspirin Chewable) 81 mg PEG DAILY [facility] Last Admin: 05/23/18 10:27 Dose: 81 mg Diltiazem HCl (Cardizem) 30 mg PEG Q6 [facility] Last Admin: 05/23/18 12:43 Dose: Not Given Folic Acid (Folic Acid) 1 mg GT DAILY [facility] Last Admin: 05/23/18 10:27 Dose: 1 mg Furosemide (Lasix) 40 mg PEG DAILY [facility] Last Admin: 05/23/18 10:26 Dose: 40 mg Colistimethate Sodium 100 mg/ (Sodium Chloride) 100 mls @ 200 mls/hr IV Q12H [facility] PRN Reason: Protocol Last Admin: 05/23/18 15:04 Dose: 200 mls/hr Meropenem 500 mg/ Sodium (Chloride) 100 mls @ 100 mls/hr IVPB Q12H [facility] PRN Reason: Protocol Last Admin: 05/23/18 13:42 Dose: 100 mls/hr Insulin Aspart (Novolog) 0 unit SC ACHS [facility] PRN Reason: Protocol Last Admin: 05/23/18 11:29 Dose: Not Given Magnesium Hydroxide (Milk Of Magnesia) 30 ml GT HS PRN PRN Reason: Constipation Mupirocin (Bactroban Ointment) 15 gm TOP DAILY [facility] Last Admin: 05/23/18 10:27 Dose: 1 applic Pantoprazole Sodium (Protonix Ec Tab) 40 mg PO DAILY [facility] Last Admin: 05/23/18 10:26 Dose: 40 mg Saccharomyces Boulardii (Florastor) 250 mg GT DAILY [facility] Last Admin: 05/23/18 10:26 Dose: 250 mg Tiotropium [place] (Spiriva) 18 mcg INH RQ24 [facility] Last Admin: 05/20/18 08:17 Dose: 18 mcg Vitamin A (Vitamin A & D Oint Ud Foilpak) 0.5 ea TOP BID PRN PRN Reason: Dry skin Last Admin: 05/23/18 10:27 Dose: 0.5 ea - Labs Labs: 05/23/18 07:30 05/23/18 07:30 PT 13.2 SECONDS (9.7-12.2) H 05/15/18 12:53 INR 1.2 05/15/18 12:53 APTT 40 SECONDS (21-34) H 05/15/18 12:53 Assessment and Plan (1) Acute on chronic respiratory failure with hypoxia and hypercapnia Status: Acute (2) COPD exacerbation Status: Acute (3) Cardiomyopathy Status: Acute
--- NOTE | 2018-05-23 20:36 | CP.PCM.PN ---
Subjective - Date & Time of Evaluation Date of Evaluation: 05/23/18 Time of Evaluation: 08:20 - Subjective Subjective: clinically same Objective - Vital Signs/Intake and Output Vital Signs (last 24 hours): Temp Pulse Resp BP Pulse Ox 97.9 F 91 H 20 101/66 96 05/23/18 16:00 05/23/18 16:00 05/23/18 16:00 05/23/18 16:00 05/23/18 16:00 Intake and Output: 05/23/18 05/24/18 18:59 06:59 Intake Total 1090 Output Total 1050 Balance 40 - Medications Medications: Current Medications Acetaminophen (Tylenol 650mg/20.3ml Solution Ud) 650 mg GT Q4 PRN PRN Reason: Pain, Mild (1-3) Aspirin (Aspirin Chewable) 81 mg PEG DAILY [facility] Last Admin: 05/23/18 10:27 Dose: 81 mg Diltiazem HCl (Cardizem) 30 mg PEG Q6 [facility] Last Admin: 05/23/18 12:43 Dose: Not Given Folic Acid (Folic Acid) 1 mg GT DAILY [facility] Last Admin: 05/23/18 10:27 Dose: 1 mg Furosemide (Lasix) 40 mg PEG DAILY [facility] Last Admin: 05/23/18 10:26 Dose: 40 mg Colistimethate Sodium 100 mg/ (Sodium Chloride) 100 mls @ 200 mls/hr IV Q12H [facility] PRN Reason: Protocol Last Admin: 05/23/18 15:04 Dose: 200 mls/hr Meropenem 500 mg/ Sodium (Chloride) 100 mls @ 100 mls/hr IVPB Q12H [facility] PRN Reason: Protocol Last Admin: 05/23/18 13:42 Dose: 100 mls/hr Insulin Aspart (Novolog) 0 unit SC ACHS [facility] PRN Reason: Protocol Last Admin: 05/23/18 17:48 Dose: Not Given Magnesium Hydroxide (Milk Of Magnesia) 30 ml GT HS PRN PRN Reason: Constipation Mupirocin (Bactroban Ointment) 15 gm TOP DAILY [facility] Last Admin: 05/23/18 10:27 Dose: 1 applic Pantoprazole Sodium (Protonix Ec Tab) 40 mg PO DAILY [facility] Last Admin: 05/23/18 10:26 Dose: 40 mg Saccharomyces Boulardii (Florastor) 250 mg GT DAILY [facility] Last Admin: 05/23/18 10:26 Dose: 250 mg Tiotropium [place] (Spiriva) 18 mcg INH RQ24 [facility] Last Admin: 05/20/18 08:17 Dose: 18 mcg Vitamin A (Vitamin A & D Oint Ud Foilpak) 0.5 ea TOP BID PRN PRN Reason: Dry skin Last Admin: 05/23/18 10:27 Dose: 0.5 ea - Labs Labs: 05/23/18 07:30 05/23/18 07:30 PT 13.2 SECONDS (9.7-12.2) H 05/15/18 12:53 INR 1.2 05/15/18 12:53 APTT 40 SECONDS (21-34) H 05/15/18 12:53 - Constitutional Appears: Well - Head Exam Head Exam: ATRAUMATIC, NORMAL INSPECTION, NORMOCEPHALIC - Eye Exam Eye Exam: EOMI, Normal appearance, PERRL Pupil Exam: NORMAL ACCOMODATION, PERRL - ENT Exam ENT Exam: Mucous Membranes Moist, Normal Exam - Neck Exam Neck Exam: Full ROM, Normal Inspection. absent: Lymphadenopathy - Respiratory Exam Respiratory Exam: Decreased Breath Sounds - Cardiovascular Exam Cardiovascular Exam: REGULAR RHYTHM, +S1, +S2 - GI/Abdominal Exam GI & Abdominal Exam: Soft, Diminished Bowel Sounds - Rectal Exam Rectal Exam: Deferred
[2018-05-24] MEDS: Meropenem 500 MG in Sodium Chloride 0.9% 100 ML IVPB SCH ×2 (00:36→14:03)
[2018-05-24 07:48] LABS: BASO % 0.5 % (0.0-2.0); EOS # 0.7 K/uL (0.0-0.7); EOS % 12.5 % (0.0-4.0); HEMOGLOBIN 9.5 g/dL (12.0-18.0); LYMPH # 1.4 K/uL (1.0-4.3); LYMPH % 24.7 % (20.0-40.0); MEAN CELL VOLUME 91.3 fL (80.0-94.0); MEAN CORPUSCULAR HEMOGLOBIN 28.9 pg (27.0-31.0); MEAN CORPUSCULAR HGB CONC 31.7 g/dL (33.0-37.0); MEAN PLATELET VOLUME 7.4 fL (7.2-11.7); MONO # 0.7 K/uL (0.0-0.8); MONO % 11.3 % (0.0-10.0); NRBC % 0.1 % (0.0-2.0); RBC 3.27 Mil/uL (4.40-5.90); RED CELL DISTRIBUTION WIDTH 22.4 % (11.5-14.5); WHITE BLOOD COUNT 5.8 K/uL (4.8-10.8)
[2018-05-24] MEDS: (Novolog) Insulin Aspart, Recombinant 100 u/ml 10 ml vial SC SCH ×3 (07:54→17:04)
[2018-05-24 08:09] LABS: ALB/GLOB RATIO 0.9 (1.0-2.1); ALBUMIN 3.4 g/dL (3.5-5.0); ALT/SGPT 30 U/L (21-72); AST/SGOT 42 U/L (17-59); BLOOD UREA NITROGEN 35 mg/dL (9-20); CALCIUM 9.1 mg/dl (8.6-10.4); GFR AFRICAN-AMERICAN > 60; GFR NON-AFRICAN AMERICAN > 60
[2018-05-24] MEDS: Vitamins A & D Oint UD Foilpak TOP PRN (10:16)
[2018-05-24] MEDS: Saccharomyces Boulardi 250 mg Cap GT SCH (10:16)
[2018-05-24] MEDS: Pantoprazole 40 mg EC Tab PO SCH (10:16)
--- NOTE | 2018-05-24 13:53 | CP.PCM.PN ---
Subjective - Date & Time of Evaluation Date of Evaluation: 05/24/18 Time of Evaluation: 08:15 - Subjective Subjective: clinically same Objective - Vital Signs/Intake and Output Vital Signs (last 24 hours): Temp Pulse Resp BP Pulse Ox 97.9 F 98 H 18 97/59 L 94 L 05/24/18 08:06 05/24/18 08:06 05/24/18 08:06 05/24/18 10:17 05/24/18 08:06 Intake and Output: 05/24/18 05/24/18 06:59 18:59 Output Total 1200 Balance -1200 - Medications Medications: Current Medications Acetaminophen (Tylenol 650mg/20.3ml Solution Ud) 650 mg GT Q4 PRN PRN Reason: Pain, Mild (1-3) Aspirin (Aspirin Chewable) 81 mg PEG DAILY [facility] Last Admin: 05/24/18 10:16 Dose: 81 mg Diltiazem HCl (Cardizem) 30 mg PEG Q6 [facility] Last Admin: 05/24/18 05:40 Dose: Not Given Folic Acid (Folic Acid) 1 mg GT DAILY [facility] Last Admin: 05/24/18 10:16 Dose: 1 mg Furosemide (Lasix) 40 mg PEG DAILY [facility] Last Admin: 05/24/18 10:17 Dose: Not Given Colistimethate Sodium 100 mg/ (Sodium Chloride) 100 mls @ 200 mls/hr IV Q12H JUANA PRN Reason: Protocol Last Admin: 05/24/18 02:18 Dose: 200 mls/hr Meropenem 500 mg/ Sodium (Chloride) 100 mls @ 100 mls/hr IVPB Q12H JUANA PRN Reason: Protocol Last Admin: 05/24/18 00:36 Dose: 100 mls/hr Insulin Aspart (Novolog) 0 unit SC ACHS JUANA PRN Reason: Protocol Last Admin: 05/24/18 11:30 Dose: Not Given Magnesium Hydroxide (Milk Of Magnesia) 30 ml GT HS PRN PRN Reason: Constipation Mupirocin (Bactroban Ointment) 15 gm TOP DAILY [facility] Last Admin: 05/24/18 10:17 Dose: 1 applic Pantoprazole Sodium (Protonix Ec Tab) 40 mg PO DAILY [facility] Last Admin: 05/24/18 10:16 Dose: 40 mg Saccharomyces Boulardii (Florastor) 250 mg GT DAILY [facility] Last Admin: 05/24/18 10:16 Dose: 250 mg Tiotropium [place] (Spiriva) 18 mcg INH RQ24 JUANA Last Admin: 05/20/18 08:17 Dose: 18 mcg Vitamin A (Vitamin A & D Oint Ud Foilpak) 0.5 ea TOP BID PRN PRN Reason: Dry skin Last Admin: 05/24/18 10:16 Dose: 0.5 ea - Labs Labs: 05/24/18 07:38 05/24/18 07:38 PT 13.2 SECONDS (9.7-12.2) H 05/15/18 12:53 INR 1.2 05/15/18 12:53 APTT 40 SECONDS (21-34) H 05/15/18 12:53 - Constitutional Appears: Well - Head Exam Head Exam: ATRAUMATIC, NORMAL INSPECTION, NORMOCEPHALIC - Eye Exam Eye Exam: EOMI, Normal appearance, PERRL Pupil Exam: NORMAL ACCOMODATION, PERRL - ENT Exam ENT Exam: Mucous Membranes Moist, Normal Exam - Neck Exam Neck Exam: Full ROM, Normal Inspection. absent: Lymphadenopathy - Respiratory Exam Respiratory Exam: Decreased Breath Sounds - Cardiovascular Exam Cardiovascular Exam: REGULAR RHYTHM, +S1, +S2 - GI/Abdominal Exam GI & Abdominal Exam: Soft, Diminished Bowel Sounds - Rectal Exam Rectal Exam: Deferred
[2018-05-24 15:59] VITALS: BP 109/72; PULSE 94; RESP 20; TEMP 97.5; O2SAT 98
--- NOTE | 2018-05-24 17:34 | CP.PCM.PN ---
Subjective - Date & Time of Evaluation Date of Evaluation: 05/24/18 Time of Evaluation: 09:00 - Subjective Subjective: Patient seen and examined at bedside this morning. Patient is in no acute distress. Patient is awake and responsive. Patient has no acute complaints. Patient is afebrile. Tracheotomy in place with decreased secretions. ROS: Constitutional: Patient denies fever and chills. Cardiovascular: Patient denies chest pain, palpitations Respiratory: Patient denies shortness of breath and cough. Gastrointestinal: Patient denies nausea, vomiting, diarrhea. Physical Exam HEENT: Atraumatic, normocephalic, mucuous membranes moist Repiratory: Clear to auscultation bilaterally. No rales, no wheezing or rhonchi. No use of accessory muscles. Cardiovascular: +S1/ S2, regular rate and rhythm GI: Normal bowel sounds in all 4 quadrants, no tenderness, no distention Extremities: No LE edema Neurological: Alert, awake Assessment: 70 year old male patient with past medical history of laryngeal cancer, COPD, hypertension and CHF; patient presents with consistent acute respiratory failure with hypoxia and hypercapnia. 1. Acute on chronic respiratory failure with hypoxia and hypercapnia Status: Acute -Vancomycin Hcl 150 mls @ 150 mls/ hr IVPB Q12H -Cefepime Hcl 1 gm in 50 mls @ 100 mls/ hr IVPB Q12H - Cirpofloxacin 400 mg in 200 mls @ 133 mls/ hr IVPB Q12 - Albuterol/ Ipratropium 3 ml INH Q4 - Tiotropium bromide 1 inhaler INH daily - Tracheostomy care - Pulmonary toilet 2. Hypertension Status: Chronic - Diltiazem Hcl 30 mg PEG Q6 -Furosemide 40 mg PEG daily Objective - Vital Signs/Intake and Output Vital Signs (last 24 hours): Temp Pulse Resp BP Pulse Ox 97.5 F L 94 H 20 109/72 98 05/24/18 15:57 05/24/18 15:57 05/24/18 15:57 05/24/18 15:57 05/24/18 15:57 Intake and Output: 05/24/18 05/24/18 06:59 18:59 Intake Total 1090 Output Total 1200 Balance -1200 1090 - Medications Medications: Current Medications Acetaminophen (Tylenol 650mg/20.3ml Solution Ud) 650 mg GT Q4 PRN PRN Reason: Pain, Mild (1-3) Aspirin (Aspirin Chewable) 81 mg PEG DAILY [facility] Last Admin: 05/24/18 10:16 Dose: 81 mg Diltiazem HCl (Cardizem) 30 mg PEG Q6 [facility] Last Admin: 05/24/18 17:03 Dose: Not Given Folic Acid (Folic Acid) 1 mg GT DAILY [facility] Last Admin: 05/24/18 10:16 Dose: 1 mg Furosemide (Lasix) 40 mg PEG DAILY [facility] Last Admin: 05/24/18 10:17 Dose: Not Given Colistimethate Sodium 100 mg/ (Sodium Chloride) 100 mls @ 200 mls/hr IV Q12H [facility]NA PRN Reason: Protocol Last Admin: 05/24/18 14:52 Dose: 200 mls/hr Meropenem 500 mg/ Sodium (Chloride) 100 mls @ 100 mls/hr IVPB Q12H [facility]NA PRN Reason: Protocol Last Admin: 05/24/18 14:03 Dose: 100 mls/hr Insulin Aspart (Novolog) 0 unit SC ACHS JUANA PRN Reason: Protocol Last Admin: 05/24/18 17:04 Dose: Not Given Magnesium Hydroxide (Milk Of Magnesia) 30 ml GT HS PRN PRN Reason: Constipation Mupirocin (Bactroban Ointment) 15 gm TOP DAILY [facility] Last Admin: 05/24/18 10:17 Dose: 1 applic Pantoprazole Sodium (Protonix Ec Tab) 40 mg PO DAILY [facility] Last Admin: 05/24/18 10:16 Dose: 40 mg Saccharomyces Boulardii (Florastor) 250 mg GT DAILY [facility] Last Admin: 05/24/18 10:16 Dose: 250 mg Tiotropium [place] (Spiriva) 18 mcg INH RQ24 [facility] Last Admin: 05/20/18 08:17 Dose: 18 mcg Vitamin A (Vitamin A & D Oint Ud Foilpak) 0.5 ea TOP BID PRN PRN Reason: Dry skin Last Admin: 05/24/18 10:16 Dose: 0.5 ea - Labs Labs: 05/24/18 07:38 05/24/18 07:38 PT 13.2 SECONDS (9.7-12.2) H 05/15/18 12:53 INR 1.2 05/15/18 12:53 APTT 40 SECONDS (21-34) H 05/15/18 12:53 Assessment and Plan (1) Acute on chronic respiratory failure with hypoxia and hypercapnia Status: Acute (2) COPD exacerbation Status: Acute (3) Cardiomyopathy Status: Acute
--- NOTE | 2018-05-24 19:52 | CP.PCM.PN ---
Subjective - Date & Time of Evaluation Date of Evaluation: 05/24/18 Time of Evaluation: 19:52 Objective - Vital Signs/Intake and Output Vital Signs (last 24 hours): Temp Pulse Resp BP Pulse Ox 97.5 F L 94 H 20 109/72 98 05/24/18 15:57 05/24/18 15:57 05/24/18 15:57 05/24/18 15:57 05/24/18 15:57 Intake and Output: 05/24/18 05/25/18 18:59 06:59 Intake Total 1090 Balance 1090 - Medications Medications: Current Medications Acetaminophen (Tylenol 650mg/20.3ml Solution Ud) 650 mg GT Q4 PRN PRN Reason: Pain, Mild (1-3) Aspirin (Aspirin Chewable) 81 mg PEG DAILY [facility] Last Admin: 05/24/18 10:16 Dose: 81 mg Diltiazem HCl (Cardizem) 30 mg PEG Q6 [facility] Last Admin: 05/24/18 17:03 Dose: Not Given Folic Acid (Folic Acid) 1 mg GT DAILY [facility] Last Admin: 05/24/18 10:16 Dose: 1 mg Furosemide (Lasix) 40 mg PEG DAILY [facility] Last Admin: 05/24/18 10:17 Dose: Not Given Colistimethate Sodium 100 mg/ (Sodium Chloride) 100 mls @ 200 mls/hr IV Q12H [facility] PRN Reason: Protocol Last Admin: 05/24/18 14:52 Dose: 200 mls/hr Meropenem 500 mg/ Sodium (Chloride) 100 mls @ 100 mls/hr IVPB Q12H [facility] PRN Reason: Protocol Last Admin: 05/24/18 14:03 Dose: 100 mls/hr Insulin Aspart (Novolog) 0 unit SC ACHS [facility]UANA PRN Reason: Protocol Last Admin: 05/24/18 17:04 Dose: Not Given Magnesium Hydroxide (Milk Of Magnesia) 30 ml GT HS PRN PRN Reason: Constipation Mupirocin (Bactroban Ointment) 15 gm TOP DAILY [facility] Last Admin: 05/24/18 10:17 Dose: 1 applic Pantoprazole Sodium (Protonix Ec Tab) 40 mg PO DAILY [facility] Last Admin: 05/24/18 10:16 Dose: 40 mg Saccharomyces Boulardii (Florastor) 250 mg GT DAILY [facility] Last Admin: 05/24/18 10:16 Dose: 250 mg Tiotropium [place] (Spiriva) 18 mcg INH RQ24 [facility] Last Admin: 05/20/18 08:17 Dose: 18 mcg Vitamin A (Vitamin A & D Oint Ud Foilpak) 0.5 ea TOP BID PRN PRN Reason: Dry skin Last Admin: 05/24/18 10:16 Dose: 0.5 ea - Labs Labs: 05/24/18 07:38 05/24/18 07:38 PT 13.2 SECONDS (9.7-12.2) H 05/15/18 12:53 INR 1.2 05/15/18 12:53 APTT 40 SECONDS (21-34) H 05/15/18 12:53 Assessment and Plan (1) Acute hypoxemic respiratory failure Status: Acute (2) Tracheostomy dependent Status: Acute (3) COPD exacerbation Status: Acute (4) Cardiomyopathy Status: Acute (5) Laryngeal cancer Status: Chronic
== END 2018-05-24 19:54 | DRG 189 ==
LOC: C.ER 12:01 → C.9E 14:48 → C.5S 17:49
PROVIDERS: ADMIT Internal Medicine Nephrology; ATTEND Internal Medicine Nephrology
PROC: 3E0G76Z Introduction of Nutritional Substance into Upper GI, Via Natural or Artificial Opening (ICD-10-PCS; 2018-05-15)
PROC: 0B21XFZ Change Tracheostomy Device in Trachea, External Approach (ICD-10-PCS; principal; 2018-05-16)
DX: J96.22 Acute and chronic respiratory failure with hypercapnia (principal); J15.1 Pneumonia due to Pseudomonas; J44.0 Chronic obstructive pulmonary disease with (acute) lower respiratory infection; J95.09 Other tracheostomy complication; C32.9 Malignant neoplasm of larynx, unspecified; L89.154 Pressure ulcer of sacral region, stage 4; L89.523 Pressure ulcer of left ankle, stage 3; L89.513 Pressure ulcer of right ankle, stage 3; N39.0 Urinary tract infection, site not specified; J44.1 Chronic obstructive pulmonary disease with (acute) exacerbation; I42.9 Cardiomyopathy, unspecified; I13.0 Hypertensive heart and chronic kidney disease with heart failure and stage 1 through stage 4 chronic kidney disease, or unspecified chronic kidney disease; J96.21 Acute and chronic respiratory failure with hypoxia; E11.22 Type 2 diabetes mellitus with diabetic chronic kidney disease; N18.9 Chronic kidney disease, unspecified; I50.9 Heart failure, unspecified; L89.620 Pressure ulcer of left heel, unstageable; Z66 Do not resuscitate; Z93.1 Gastrostomy status; Z93.0 Tracheostomy status; Z87.01 Personal history of pneumonia (recurrent); Z87.891 Personal history of nicotine dependence